=== PATIENT | female | born 1935 | race Caucasian/White ===

== ENCOUNTER 2016-04-12 12:54 | Inpatient (IN) | payer MEDICARE, MEDICAID ==
[2016-04-12] MEDS ORDERED: Morphine INJ* 4 MG/ML 1 ML CARPUJECT IV ONE (14:15)
[2016-04-12] MEDS ORDERED: Ondansetron INJ* 2 MG/ML VIAL IV ONE (14:15)
[2016-04-12] MEDS ORDERED: NS 0.9% 1000 ML* 2,000 ML IV ONE (14:15)
[2016-04-12 14:28] LABS: Hematocrit 35 % (35-47); Mean Corpuscular HGB Conc 35 g/dl (31-36); Mean Corpuscular Hemoglobin 32 pg (27-31); Mean Corpuscular Volume 91 fL (80-97); Mean Platelet Volume 8 um3 (7.4-10.4); Red Blood Count 3.79 10^6/ul (4.0-5.4); Red Cell Distribution Width 17 % (10.5-15); White Blood Count 16.8 10^3/ul (3.5-10.8)
[2016-04-12 14:41] LABS: Albumin 3.3 g/dL (3.2-5.2); C Reactive Protein 148.8 mg/L (< 5.00); Calcium 9.6 mg/dL (8.6-10.3); EGFR African American 38.8 (>60); EGFR Non-African American 30.2 (>60); Globulin 4.3 g/dL (2-4); Magnesium 2.2 mg/dL (1.9-2.7); Potassium 5.4 mmol/L (3.5-5.0); Total Bilirubin 0.7 mg/dL (0.2-1.0); Total Protein 7.6 g/dL (6.4-8.9)
[2016-04-12 14:58] LABS: Troponin I 1.26 ng/mL (<0.04)
--- NOTE | 2016-04-12 15:05 | RAD ---
INDICATION: Cough and shortness of breath. COMPARISON: Comparison is made with prior studies from July 14, 2015 and February 16, 2016. TECHNIQUE: AP and lateral views of the chest were obtained. FINDINGS: Cardiac and mediastinal contours appear normal. There is mild prominence of the interstitial markings which appear unchanged. There is a small infiltrate present in the right middle lobe. No pleural effusion is seen. IMPRESSION: SMALL RIGHT MIDDLE LOBE INFILTRATE.
--- NOTE | 2016-04-12 16:10 | RAD ---
CLINICAL HISTORY: Diffuse abdominal pain, vomiting COMPARISON: March 16, 2016 TECHNIQUE: Multiple contiguous axial CT scans were obtained of the abdomen and pelvis, without intravenous contrast enhancement. Coronal and sagittal multiplanar reformations are submitted for review. Oral contrast was administered. FINDINGS: The study is limited by the lack of intravenous contrast. This limits evaluation of the solid organs and vasculature. LUNG BASES: There is atelectasis and consolidation of the left lower lobe. There is atelectasis of the right middle lobe LIVER: The liver is normal in shape, size, contour, and attenuation. BILE DUCTS: There is no intrahepatic or extrahepatic biliary dilatation. GALLBLADDER: There is diffuse wall thickening of the gallbladder up to 0.8 cm. There is no appreciable cholelithiasis. PANCREAS: There is a stable punctate calcification of the uncinate process of the pancreas. There is no pancreatic ductal dilatation. SPLEEN: The spleen is not visualized UPPER GI TRACT: Evaluation of the gastrointestinal tract is limited by incomplete gastric distention. The upper GI tract is unremarkable. SMALL BOWEL AND MESENTERY: The small bowel is normal in contour, course, and caliber. There is no obstruction or dilatation. COLON: The colon is normal in contour, course, caliber. There is no pericolonic inflammatory change. ADRENALS: Normal bilaterally. KIDNEYS: The right kidney is not visualized. Renal cysts are noted on the left with small calyceal stones. There is no appreciable hydronephrosis. BLADDER: The bladder is smooth in contour. PELVIC ORGANS: The pelvic organs are not visualized. AORTA: There is calcific atherosclerotic disease of the abdominal aorta and its branches, without aneurysmal dilatation IVC: Unremarkable LYMPH NODES: There is no lymphadenopathy by size criteria. ABDOMINAL WALL: There is a superior lumbar triangle hernia on the right containing fat. BONES AND SOFT TISSUES: There is diffuse osteopenia. Mild degenerative changes are noted. OTHER: None IMPRESSION: 1. DIFFUSE GALLBLADDER WALL THICKENING. THE APPEARANCE IS SUGGESTIVE OF CHOLECYSTITIS, INCLUDING ACALCULUS CHOLECYSTITIS 2. NODULAR TO LEFT RENAL CALYCEAL STONES. NO HYDRONEPHROSIS. 3. NO OBSTRUCTION. 4. ATELECTASIS AND CONSOLIDATION OF THE LEFT LOWER LOBE WITH ATELECTASIS OF THE RIGHT MIDDLE LOBE. 5. ATHEROSCLEROSIS.
--- NOTE | 2016-04-12 16:25 | ED ---
Jose Gan Matthew, scribed for Juan Ramon Frias MD on 04/12/16 at 1410 . Abdominal Pain/Female - HPI Summary HPI Summary: An 81 y/o female presents to the ED with diffuse abdominal pain. She states that she's had this pain for a long time. Associated symptoms include diarrhea, SOB, chills, decreased appetite, general weakness, cough, and nausea. She denies chest pain. In the past she has used hydrocodone for pain relief; however , the medication is no longer effective. She took imodium for the diarrhea with moderate relief. In January 2016, the patient was hospitalized with pneumonia. At that time, she also had a heart catheterization. The patient only has one kidney. She has a Hx of small bowel obstruction. Shes Dr. Sims for s/p breast CA. - History of Current Complaint Chief Complaint: EDGeneral Stated Complaint: GENERAL ILLNESS Time Seen by Provider: 04/12/16 13:56 Hx Obtained From: Patient, Family/[employer]st - Daughter ?: No Onset/Duration: Gradual Onset, Still Present Timing: Constant Severity Initially: Moderate Severity Currently: Moderate Location: Diffuse Radiates: No Aggravating Factor(s): Nothing Alleviating Factor(s): Nothing Associated Signs and Symptoms: Positive: Cough, Decreased Appetite, Nausea, Diarrhea, Other: - SOB. Negative: Fever, Chest Pain, Vomiting Allergies/Adverse Reactions: Allergies Allergy/AdvReac Type Severity Reaction Status Date / Time Sulfa Drugs Allergy Severe Swelling Verified 03/16/16 14:02 Of Face,Lips,& Throat Tetracyclines & Related Allergy Severe Blurred Verified 03/16/16 14:02 Vision Carbamazepine [From Tegretol] Allergy Intermediate Itching Verified 03/16/16 14: 02 Iodine Allergy Intermediate See Comment Verified 03/16/16 14:02 Phenytoin [From Dilantin] Allergy Intermediate Shakes Verified 03/16/16 14:02 Prednisone Allergy Intermediate Palpitation Verified 03/16/16 14:02 s Latex Allergy Mild Rash Verified 03/16/16 14:02 Olanzapine [From Zyprexa] Allergy Unknown Altered Verified 03/16/16 14:02 Mental Status Valproic Acid [From Depakote] Allergy Unknown Altered Verified 03/16/16 14:02 Mental Status Cetirizine [From Zyrtec] Allergy Unknown Verified 12/27/16 14:02 Reaction Details PMH/Surg Hx/FS Hx/Imm Hx Endocrine/Hematology History: Reports: Hx Thyroid Disease - HASHIMOTOS, Hx Anemia - CHRONIC HEMOLYTIC ANEMIA Denies: Hx Anticoagulant Therapy, Hx Diabetes Cardiovascular History: Reports: Hx Hypertension Denies: Hx Pacemaker/ICD Comment Only: Other Cardiovascular Problems/Disorders - HX OF MASTECTOMY Respiratory History: Reports: Hx Asthma, Hx Chronic Bronchitis - not chronic, Hx Chronic Obstructive Pulmonary Disease (COPD) - CAD, Hx Pneumonia, Other Respiratory Problems/Disorders - emphysema GI History: Reports: Hx Gastroesophageal Reflux Disease, Hx Hiatal Hernia, Hx Irritable Bowel, Other GI Disorders - small bowel obstruction History: Reports: Hx Acute Renal Failure, Hx Kidney Stones, Hx Renal Disease - 1 KIDNEY, Other Problems/Disorders - renal disease Musculoskeletal History: Reports: Hx Arthritis - OSTEOARTHRITIS, Hx Osteoporosis Denies: Hx Rheumatoid Arthritis Sensory History: Reports: Hx Cataracts Denies: Hx Contacts or Glasses, Hx Hearing Aid Opthamlomology History: Reports: Hx Cataracts Denies: Hx Contacts or Glasses Neurological History: Reports: Hx Headaches - WITH ELEVATION IN BLOOD PRESSURE, Hx Migraine - WITH VALSALVAR MOVEMENT, Hx Seizures - BI-TEMPORAL INCOMPLETE FOCAL SEIZURES Psychiatric History: Reports: Hx Anxiety Denies: Hx Panic Disorder - Cancer History Cancer Type, Location and Year: BREAST CA Hx Chemotherapy: Yes - 1990 Hx Radiation Therapy: No - Surgical History Surgery Procedure, Year, and Place: LEFT BREAST REMOVED IN [facility] 1990 PER PT., SPLENECTOMY Hx Anesthesia Reactions: Yes Infectious Disease History: Denies: Traveled Outside the [place] in Last 30 Days - Family History Known Family History: Positive: Respiratory Disease - COPD - Social History Alcohol Use: None Hx Substance Use: No Substance Use Type: Reports: None Hx Tobacco Use: Yes Smoking Status (MU): Heavy Every Day Tobacco Smoker Type: Cigarettes Amount Used/How Often: 1 ppd 50 yrs Length of Time of Smoking/Using Tobacco: 50 years Have You Smoked in the Last Year: Yes Review of Systems Constitutional: Other - decreased appetite Positive: Chills Eyes: Negative ENT: Negative Cardiovascular: Negative Negative: Chest Pain Positive: Shortness Of Breath, Cough Positive: Abdominal Pain - Diffuse, Diarrhea, Nausea. Negative: Vomiting Genitourinary: Negative Musculoskeletal: Negative Skin: Negative Positive: Weakness - general Psychological: Normal All Other Systems Reviewed And Are Negative: Yes Physical Exam - Summary Physical Exam Summary: The patient is in no acute distress and in no acute pain. The skin has decreased turgor. HEENT: The head is normocephalic and atraumatic. The pupils are equal and reactive. The conjunctivae are clear and without drainage. Nares are patent and without drainage. Mouth reveals dry mucous membranes and the throat is without erythema and exudate. The external ears are intact. The ear canals are patent and without drainage. The tympanic membranes are intact. Neck is supple with full range of motion and non-tender. There are no carotid bruits. There is no neck vein distension. Respiratory: Chest is non-tender. The patient has wheezing and rhonchi. Cardiovascular: Heart is regular rate and rhythm. There is no murmur or rub auscultated. There is no peripheral edema and pulses are symmetrical and equal. Abdomen: The abdomen is soft with RLQ and LLQ abdominal tenderness. There are normal bowel sounds heard in all four quadrants and there is no organomegaly palpated. Musculoskeletal: There is no back pain noted. Extremities are non-tender with full range of motion. There is good capillary refill. There is no peripheral edema or calf tenderness elicited. Neurological: Patient is alert and oriented to person, place and time. The patient has symmetrical motor strength in all four extremities. Cranial nerves are grossly intact. Deep tendon reflexes are symmetrical and equal in all four extremities. Psychiatric: The patient has an appropriate affect and does not exhibit any anxiety or depression. Triage Information Reviewed: Yes Vital Signs On Initial Exam: Initial Vitals Temp Pulse Resp BP Pulse Ox 98.3 F 105 10 184/84 96 04/12/16 13:38 04/12/16 13:38 04/12/16 13:38 04/12/16 13:38 04/12/16 13:38 Vital Signs Reviewed: Yes Diagnostics - Vital Signs Vital Signs Temp Pulse Resp BP Pulse Ox 04/12/16 13:38 98.3 F 105 10 184/84 96 - Laboratory Lab Results: Lab Results 04/12/16 04/12/16 04/12/16 Range/Units 13:33 13:33 13:33 WBC 16.8 H (3.5-10.8) 10^3/ul RBC 3.79 L (4.0-5.4) 10^6/ul Hgb 12.0 (12.0-16.0) g/dl Hct 35 (35-47) % MCV 91 (80-97) fL MCH 32 H (27-31) pg MCHC 35 (31-36) g/dl RDW 17 H (10.5-15) % Plt Count 459 H (150-450) 10^3/ul MPV 8 (7.4-10.4) um3 Neut % (Auto) 82.9 (38-83) % Lymph % (Auto) 7.9 L (25-47) % [place] % (Auto) 8.5 (1-9) % Eos % (Auto) 0 (0-6) % Baso % (Auto) 0.7 (0-2) % Absolute Neuts (auto) 13.9 H (1.5-7.7) 10^3/ul Absolute Lymphs (auto) 1.3 (1.0-4.8) 10^3/ul Absolute Monos (auto) 1.4 H (0-0.8) 10^3/ul Absolute Eos (auto) 0 (0-0.6) 10^3/ul Absolute Basos (auto) 0.1 (0-0.2) 10^3/ul Absolute Nucleated RBC 0.01 10^3/ul Nucleated RBC % 0.1 INR (Anticoag Therapy) (0.89-1.11) Sodium 136 (133-145) mmol/L Potassium 5.4 H (3.5-5.0) mmol/L Chloride 103 (101-111) mmol/L Carbon Dioxide 24 (22-32) mmol/L Anion Gap 9 (2-11) mmol/L BUN 18 (6-24) mg/dL Creatinine 1.63 H (0.51-0.95) mg/dL Est GFR ( Amer) 38.8 (>60) Est GFR (Non-Af Amer) 30.2 (>60) BUN/Creatinine Ratio 11.0 (8-20) Glucose 115 H (70-100) mg/dL Lactic Acid 1.7 (0.5-2.0) mmol/L Calcium 9.6 (8.6-10.3) mg/dL Magnesium 2.2 (1.9-2.7) mg/dL Total Bilirubin 0.70 (0.2-1.0) mg/dL AST 94 H (13-39) U/L ALT 63 H (7-52) U/L Alkaline Phosphatase 638 H (34-104) U/L Troponin I 1.26 H* (<0.04) ng/mL C-Reactive Protein 148.80 H (< 5.00) mg/L B-Natriuretic Peptide ( - 100) pg/mL Total Protein 7.6 (6.4-8.9) g/dL Albumin 3.3 (3.2-5.2) g/dL Globulin 4.3 H (2-4) g/dL Albumin/Globulin Ratio 0.8 L (1-3) Lipase 968 H (11.0-82.0) U/L 04/12/16 04/12/16 Range/Units 13:33 13:33 WBC (3.5-10.8) 10^3/ul RBC (4.0-5.4) 10^6/ul Hgb (12.0-16.0) g/dl Hct (35-47) % MCV (80-97) fL MCH (27-31) pg MCHC (31-36) g/dl RDW (10.5-15) % Plt Count (150-450) 10^3/ul MPV (7.4-10.4) um3 Neut % (Auto) (38-83) % Lymph % (Auto) (25-47) % [place] % (Auto) (1-9) % Eos % (Auto) (0-6) % Baso % (Auto) (0-2) % Absolute Neuts (auto) (1.5-7.7) 10^3/ul Absolute Lymphs (auto) (1.0-4.8) 10^3/ul Absolute Monos (auto) (0-0.8) 10^3/ul Absolute Eos (auto) (0-0.6) 10^3/ul Absolute Basos (auto) (0-0.2) 10^3/ul Absolute Nucleated RBC 10^3/ul Nucleated RBC % INR (Anticoag Therapy) 1.00 (0.89-1.11) Sodium (133-145) mmol/L Potassium (3.5-5.0) mmol/L Chloride (101-111) mmol/L Carbon Dioxide (22-32) mmol/L Anion Gap (2-11) mmol/L BUN (6-24) mg/dL Creatinine (0.51-0.95) mg/dL Est GFR ( Amer) (>60) Est GFR (Non-Af Amer) (>60) BUN/Creatinine Ratio (8-20) Glucose (70-100) mg/dL Lactic Acid (0.5-2.0) mmol/L Calcium (8.6-10.3) mg/dL Magnesium (1.9-2.7) mg/dL Total Bilirubin (0.2-1.0) mg/dL AST (13-39) U/L ALT (7-52) U/L Alkaline Phosphatase (34-104) U/L Troponin I (<0.04) ng/mL C-Reactive Protein (< 5.00) mg/L B-Natriuretic Peptide 236 H ( - 100) pg/mL Total Protein (6.4-8.9) g/dL Albumin (3.2-5.2) g/dL Globulin (2-4) g/dL Albumin/Globulin Ratio (1-3) Lipase (11.0-82.0) U/L Result Diagrams: 04/12/16 13:33 04/12/16 13:33 Lab Statement: Any lab studies that have been ordered have been reviewed, and results considered in the medical decision making process. - Radiology CXR Xray Interpretation: Positive (See Comments) - IMPRESSION: SMALL RIGHT MIDDLE LOBE INFILTRATE. Radiology Interpretation Completed By: Radiologist Abdominal Pain Fem Course/Dx - Course Course Of Treatment: Pt. presents with abdominal pain which is chronic and is not relieved with pain medication at home. her daughter states that she is weak and unable to eat secondary to increased vomiting. pt. had pending labs, CT abd/pelvis and chest x-ray pending. pt was given analgesia and anti-emetics pending disposition. - Diagnoses Differential Diagnosis: Positive: ACS, Bowel Obstruction, Constipation, Diverticulitis, Gall Bladder Disease, AL, Pancreatitis, Pneumonia, Renal Colic, Urinary Tract Infection, Other - dehydration, colitis, failure to thrive, Provider Diagnoses: Abdominal pain Discharge - Discharge Plan Condition: Stable Disposition: OTHER Discharge Disposition Comment: The patient is signed out to Dr. Mayberry pending CT A/P. Referrals: Nancy Burciaga MD [Primary Care Provider] - The documentation as recorded by the Jose conner Matthew accurately reflects the service I personally performed and the decisions made by me, Juan Ramon Frias MD.
[2016-04-12] MEDS ORDERED: Piperac/Tazob 3.375 gm in NS* 3.375 GM/100 ML BAG IVPB ONE (16:48)
[2016-04-12] MEDS ORDERED: Ondansetron INJ* 2 MG/ML VIAL IV PRN (17:43)
[2016-04-12] MEDS ORDERED: Acetaminophen TAB* 325 MG PO PRN (17:43)
[2016-04-12] MEDS ORDERED: NS 0.9% 1000 ML* 1,000 ML IV SCH ×2 (17:45→20:58)
--- NOTE | 2016-04-12 17:53 | RAD ---
INDICATION: Abdominal pain COMPARISON: CT examination April 12, 2016 TECHNIQUE: Longitudinal and transverse scans of the right upper quadrant were obtained. Doppler interrogation of the hepatic and portal venous system was performed. FINDINGS: Liver: The liver is normal in size and echogenicity. There are no focal masses. The liver measures 13.3 cm in cephalocaudal dimension. Vessels: There is normal hepatic and portal venous flow. Bile ducts: There is no evidence of intrahepatic ductal dilatation. The common duct is mildly prominent.. The common duct measures 0.8 cm. Gallbladder: There is no evidence of cholelithiasis. There is a small amount of pericholecystic fluid. There is significant gallbladder wall thickening. The gallbladder wall measures 0.8 cm. Pancreas: The visualized pancreas appears normal Right kidney: Right nephrectomy IVC and aorta: The aorta and superior vena cava appear normal. Fluid: There is no ascites. Other: None. IMPRESSION: SUSPECT ACUTE ACALCULOUS CHOLECYSTITIS. RIGHT NEPHRECTOMY.
[2016-04-12] MEDS ORDERED: Piperac/Tazob 3.375 gm in NS* 3.375 GM/100 ML BAG IVPB SCH (18:00)
[2016-04-12] MEDS ORDERED: Albuterol HFA INHALER* 8 gm MDI INH PRN (18:24)
[2016-04-12] MEDS: Morphine INJ* 2 MG/ML 1 ML CARPUJECT IV PRN (18:33)
[2016-04-12] MEDS ORDERED: Metoprolol Tartrate TAB* 25 MG PO ONE (18:34)
[2016-04-12] MEDS ORDERED: Heparin DRIP 25,000 UNITS(*) 25,000 UNITS/500 ML BAG IVPB SCH (19:30)
--- NOTE | 2016-04-12 19:37 | ED ---
Yissel Gan Michael, scribed for Davis Mayberry MD on 04/12/16 at 1625 . Progress - Progress Note Progress Note: Patient sign out from Dr. Frias for abd pain. The patient was signed out and CT needs to be evaluated for obstruction. Reviewing chart Trop was significantly elevated. EKG- j point elevation V1, V2, and V3. Compared to prior EKG 03/16/16 this seems to have worsened compared to 02/11/16 and 02/15/17, this is not new. Reviewing old records prior CT on 03/16- reviewed discharge summary 02/23/16 she had elevated white count suprapubic pain SOB. She has no CAD or N STEMI, that admission of 01/2016 for the N STEMI. Cardiac catheterization on 02/[address] Lees. Found mild to moderate CAD. Her disease was somewhat diffuse and injection faction was 55%. Decision was made to medically manage. Patient points to pain at the suprapubic and periumbilical area. She denies v/d today and has decreased appetite and drinking for the past 2 days. Physical Exam: General: Comfortable, pleasant, alert, no distress HEENT: Moist mucosa Neck: soft, supple, no adenopathy, no edema Heart: S1, S2, RRR, no murmurs, rubs, or gallops Lungs: Clear to auscultation, breathing comfortable, no wheezes or rales Abdominal: Soft, flat, diffusely tender with guarding, Bowel sounds present. Extremities: No edema, no calf tenderness Neuro: Alert and oriented x 3 Psych: Logical, coherent ASSESSMENT AND PLAN: Presentation quite similar to prior admissions in January. She had abd pain that seems diffuse and points essentially to the lower abd as well as an elevated Trop. Prior records and catheterization reviewed, EKG does not show st elevation PR. Pt will be admitted and add a gall bladder u/s as well as antibiotics for possible acute cholecystitis and lung infiltrate. Dr. Barron (Hospitalist) was consulted at 1700.- patient is accepted as an admission. - Results/Orders Results/Orders: CT ABD/PEL: RADIOLOGIST 1. DIFFUSE GALLBLADDER WALL THICKENING. THE APPEARANCE IS SUGGESTIVE OF CHOLECYSTITIS, INCLUDING ACALCULUS CHOLECYSTITIS 2. NODULAR TO LEFT RENAL CALYCEAL STONES. NO HYDRONEPHROSIS. 3. NO OBSTRUCTION. 4. ATELECTASIS AND CONSOLIDATION OF THE LEFT LOWER LOBE WITH ATELECTASIS OF THE RIGHT MIDDLE LOBE. 5. ATHEROSCLEROSIS. Course/Dx - Diagnoses Provider Diagnoses: Abdominal pain, Pneumonia, NSTEMI (non-ST elevated myocardial infarction) The documentation as recorded by the Yissel conner Michael accurately reflects the service I personally performed and the decisions made by , Davis Mayberry MD.
[2016-04-12] MEDS ORDERED: Heparin VIAL(*) 5000 UNITS/ML VIAL (FIVE THOUSAND) IV SCH (20:00)
[2016-04-12 20:39] LABS: BUN/Creatinine Ratio 13.2 (8-20); Calcium 8.5 mg/dL (8.6-10.3); EGFR African American 42.1 (>60); EGFR Non-African American 32.7 (>60); Potassium 5.1 mmol/L (3.5-5.0)
[2016-04-12 20:46] LABS: Troponin I 2.78 ng/mL (<0.04)
--- NOTE | 2016-04-12 21:06 | HP ---
ADDENDUM NOW INCLUDED ON THIS REPORT ADMISSION HISTORY AND PHYSICAL: DATE OF ADMISSION: 04/12/16 PRIMARY CARE PROVIDER: Nancy Burciaga MD ADMITTING PROVIDER: JUDY Valentino SUPERVISING PHYSICIAN: Akhil Barron MD. * (DICTATED BY JUDY VALENTINO) CHIEF COMPLAINT: Abdominal pain. HISTORY OF PRESENT ILLNESS: This is an 81-year-old female with a history of COPD, hxue-kx-zcgmczjw aortic stenosis, coronary artery disease status post non- ST elevation MS in January 2016, as well as irritable bowel syndrome, anxiety, breast cancer status post mastectomy, hemolytic anemia status post splenectomy, and chronic pain secondary to osteoarthritis, who presented to the emergency department with complaints of abdominal pain, nausea, vomiting, and diarrhea. The patient has been mildly nauseated for the last week, but her abdominal pain started approximately 48 hours ago. She has had frequent loose bowel movements and has been treating herself at home with Imodium. She notes that these are nonbloody. She has been afebrile at home. She does note increased cough and dyspnea. She notes that she generally does not use her nebulizer machine at home as prescribed either. The patient does have a history of irritable bowel syndrome and does have complaints of chronic abdominal pain, which seems to usually be midline and left upper quadrant in origin. This pain is much different and located mostly in the right upper quadrant. She notes that her pain is quite significant, it hurts to move. Of note, the patient was admitted the end of January for a non-ST elevation MS at which point, she underwent cardiac catheterization, which showed diffuse but nonobstructing coronary artery disease and no stenting was completed at that time. The patient was subsequently readmitted the beginning of November and treated for urinary tract infection. PAST MEDICAL HISTORY: 1. Severe COPD - does not require home oxygen, however. 2. Yjxk-la-bvpgcqzv severe aortic stenosis. 3. Coronary artery disease status post non-ST elevation MS in January 2016. 4. Irritable bowel syndrome. 5. Anxiety. 6. Hemolytic anemia status post splenectomy. 7. Chronic pain secondary to osteoarthritis. 8. Breast cancer status post mastectomy and chemotherapy. 9. Hypothyroidism. 10. Hypertension. 11. Hyperlipidemia. 12. GERD. PAST SURGICAL HISTORY: 1. Left mastectomy. 2. Splenectomy, June 2014. 3. Hysterectomy. 4. Bladder repair. 5. Appendectomy. 6. Knee arthroscopy. 7. Carpal tunnel release. 8. ORIF of ankle. HOME MEDICATIONS: 1. Alprazolam 0.25 mg p.o. 4 times a day as needed for anxiety. 2. Albuterol inhaler 2 puffs inhaled q.4-6 hours as needed for shortness of breath. 3. Aspirin 81 mg p.o. daily. 4. Atorvastatin 80 mg p.o. daily. 5. Fioricet 1 tablet p.o. 3 times daily as needed for headache. 6. Cholecalciferol 50,000 units p.o. monthly. 7. Plavix 75 mg p.o. daily. 8. Vitamin B12 at 500 mcg p.o. daily. 9. Bentyl 10 mg p.o. 3 times daily. 10. Diltiazem 120 mg p.o. daily. 11. Docusate 100 mg p.o. daily. 12. Doxepin 12 mg p.o. at bedtime. 13. Chaya 180 mg p.o. daily. 14. Fluticasone nasal spray 50 mcg 1 spray in both nostrils twice daily. 15. Folic acid 1 mg p.o. daily. 16. Gabapentin 600 mg p.o. t.i.d. 17. Glycerin suppository 2 g per rectum twice daily as needed for constipation. 18. Vicodin 5/325 one tablet p.o. q.6 hours as needed. 19. Levbid 0.375 mg p.o. b.i.d. 20. Levothyroxine 25 mcg p.o. daily. 21. Losartan 25 mg p.o. daily. 22. Magnesium citrate 100 mg p.o. daily as needed for constipation. 23. Singulair 10 mg p.o. at bedtime. 24. Multivitamin 1 tablet p.o. daily. 25. Omeprazole 20 mg p.o. daily. 26. MiraLAX 17 g p.o. daily as needed for constipation. 27. Probiotic 1 capsule p.o. daily. 28. Systane eye drops 0.6% in both eyes. 29. Daliresp 500 mcg p.o. daily. 30. Senna 2 tablets p.o. at bedtime as needed for constipation. 31. Fleet Enema per rectal daily as needed. 32. Incruse 62.5 mcg p.o. inhaled twice daily. 33. Mucinex 600 mg p.o. b.i.d. FAMILY HISTORY: Brother had a history of brain tumor, father had a history of MS, mother had a history of dementia. SOCIAL HISTORY: The patient lives at home alone. She is . Has a 50 plus pack a year smoking history and continues to smoke 1 pack of cigarettes daily. Denies regular alcohol consumption. Her daughter lives nearby. REVIEW OF SYSTEMS: As noted above in HPI and otherwise negative. PHYSICAL EXAMINATION GENERAL: This is a pleasant elderly female in no acute distress, lying in a hospital bed. VITAL SIGNS: Initially, temperature 98.3 degrees Fahrenheit, pulse 105 beats per minute, respiratory rate 17 per minute, oxygen saturation 100% on room air, and blood pressure 184/84 mmHg. HEENT: Head is normocephalic and atraumatic. Mucous membranes are pink but dry. RESPIRATORY: The patient has reduced breath sounds appreciated in all lung louie and a few scattered rhonchi but no wheezing. CARDIOVASCULAR: Heart has a regular rate and rhythm without murmurs, rubs, or gallops. ABDOMEN: The abdomen is diffusely tender to palpation, seems to be mostly localized in the right upper quadrant; however, bowel sounds are present. EXTREMITIES: No lower extremity edema. SKIN: Limited exam shows no concerning rashes or lesions. LABORATORY EVALUATION: CBC shows a white blood cell count of 16,800, hemoglobin is 12 g/dL, and platelet count of 459,000. INR is normal at 1.0. Comprehensive metabolic panel shows sodium of 136 mmol/L, potassium of 5.4 mmol/ L, BUN 18, creatinine of 1.63. Total bilirubin is normal at 0.70, AST elevated at 94, ALT elevated at 63, and alk phos elevated at 638. Troponin elevated at 1.26. CRP significantly elevated at 148.8. BNP mildly elevated at 236. Lipase elevated at 968. IMAGING: CT of the abdomen and pelvis shows gallbladder wall thickening consistent with acalculous cholecystitis. No other acute pathology noted. Chest x-ray shows hyperinflated lungs, possible right middle lobe infiltrate that appears to be subtle. EKG shows a normal sinus rhythm. Review of a gallbladder ultrasound is also consistent with acalculous cholecystitis with a thickened gallbladder wall and common bile duct measuring 0.8 cm. ASSESSMENT AND PLAN: This is an 81-year-old female with chronic obstructive pulmonary disease, figx-ar-ipyqqntz aortic stenosis, coronary artery disease, irritable bowel syndrome, anxiety, hemolytic anemia status post splenectomy, chronic pain, breast cancer status post mastectomy, hypertension, hyperlipidemia , and hypothyroidism, who presents with complaints of abdominal pain, nausea, vomiting, and diarrhea with evidence of acalculous cholecystitis on imaging. 1. Acute cholecystitis - the patient will be admitted to medical service, placed on IV fluids and antibiotics. The patient is not an ideal surgical candidate given her multiple comorbidities. Depending on if she improves with IV antibiotics, we would recommend continued medical management. If her pain and white blood cell count are not improving, then surgical consultation would certainly be recommended. 2. Elevated troponin - non-ST elevation myocardial infarction versus demand ischemia - the patient has had cardiac catheterization completed just 2 months ago, which showed diffuse but nonobstructing coronary artery disease, the patient is not complaining of any chest pain. No changes on EKG appreciated. Suspect that this is demand related in the setting of acute infection and hypovolemic state from her vomiting and diarrhea. If repeat troponin is trending up, we will plan on empirically anticoagulating with heparin. If repeat troponin is trending down, we will continue to monitor closely and support medically. We will hold her diltiazem in favor of metoprolol at this time, continue her aspirin and statin. Echocardiogram ordered to evaluate for new wall motion changes. 3. Acute kidney injury - secondary to hypovolemia, anticipate improvement with volume expansion. 4. Hyperkalemia, potassium 5.4 - this is a little puzzling in the setting of GI loss, but we will plan to repeat basic metabolic panel after volume expansion. 5. Chronic obstructive pulmonary disease - the patient has czagduei-yc-dtrlwa disease but does not require supplemental oxygen at baseline. No evidence of acute exacerbation. We will plan to continue her home medications. 6. Possible pneumonia - the patient has had a recent cough and dyspnea. She does have maybe a subtle infiltrate appreciated on chest x-ray. Zosyn for her cholecystitis should be appropriate for lung pathogens as well. 7. Hsjh-ki-etvssgwn aortic stenosis. 8. Irritable bowel syndrome. 9. History of hemolytic anemia status post splenectomy. 10. Hypothyroidism - continue current dose levothyroxine. 11. Anxiety. 12. Breast cancer status post mastectomy. 13. Code status - the patient is full code. 14. DVT prophylaxis - this will be dependent on her repeat troponin. If she does not require full anticoagulation for acute coronary syndrome, she will be placed on Lovenox at a renally adjusted dose. 15. Healthcare proxy is her daughter by the name of Rika. DISPOSITION: The patient is being admitted to inpatient status for acute cholecystitis. Anticipate medical management only. The patient has an anticipated length of stay of greater than 2 midnights. JUDY VALENTINO ADDENDUM: DATE OF ADMISSION: 04/12/16 Repeat troponin was resulted at 2.25, up from 1.26. The patient continued to deny complaints of chest pain. EKG repeated which showed no ischemic changes. The patient has known diffuse stenosis based on catheterization 2 months ago. We will empirically anticoagulate with heparin drip and the patient will be observed in ICU. Still feel this is likely a result of mismatched supply and demand in the setting of acute infection and likely a fixed stenosis of her coronary arteries. Called underwater hunter, Dr. Meeks who will evaluate the patient tomorrow. We will continue to trend troponins. JUDY VALENTINO CC: Nancy Burciaga MD * [id number]/[facility] #: [id number] [id number]/CPS #: [id number] SINDI
--- NOTE | 2016-04-12 21:15 | HP ---
ADMISSION HISTORY AND PHYSICAL:* ADDENDUM: DATE OF ADMISSION: 04/12/16 Repeat troponin was resulted at 2.25, up from 1.26. The patient continued to deny complaints of chest pain. EKG repeated which showed no ischemic changes. The patient has known diffuse stenosis based on catheterization 2 months ago. We will empirically anticoagulate with heparin drip and the patient will be observed in ICU. Still feel this is likely a result of mismatched supply and demand in the setting of acute infection and likely a fixed stenosis of her coronary arteries. Called lubrication supervisor, Dr. Meeks who will evaluate the patient tomorrow. We will continue to trend troponins. JUDY VALENTINO [id number]/[facility] #: [id number] MTDD
[2016-04-12] MEDS: Metoprolol Tartrate TAB* 25 MG PO SCH (21:17)
[2016-04-12] MEDS: ALPRAZolam TAB* 0.5 MG PO PRN (21:18)
[2016-04-12] MEDS: Montelukast Sodium TAB* 10 MG PO SCH (21:18)
[2016-04-12] MEDS: Gabapentin CAP(*) 300 MG PO SCH (21:21)
[2016-04-12] MEDS: guaiFENesin ER TAB 600 MG PO PRN (21:22)
[2016-04-12] MEDS: DOXEPIN PO SCH (22:13)
[2016-04-12] MEDS: Piperac/Tazob 3.375 gm in NS* 3.375 GM/100 ML BAG IVPB SCH (22:45)
[2016-04-12] MEDS: Artificial Tears* 15 ML BTL BOTH EYES SCH (22:46)
[2016-04-13 04:30] LABS: Urine Bilirubin Negative (Negative); Urine Glucose Negative (Negative); Urine Nitrite Negative (Negative)
[2016-04-13] MEDS: Levothyroxine TAB* 25 MCG TAB PO SCH (05:31)
[2016-04-13] MEDS: Piperac/Tazob 3.375 gm in NS* 3.375 GM/100 ML BAG IVPB SCH ×3 (05:35→20:18)
[2016-04-13 06:06] LABS: Hematocrit 35 % (35-47); Hemoglobin 11.8 g/dl (12.0-16.0); Mean Corpuscular HGB Conc 34 g/dl (31-36); Mean Corpuscular Hemoglobin 31 pg (27-31); Mean Corpuscular Volume 91 fL (80-97); Mean Platelet Volume 8 um3 (7.4-10.4); Red Blood Count 3.87 10^6/ul (4.0-5.4); Red Cell Distribution Width 16 % (10.5-15); White Blood Count 19.4 10^3/ul (3.5-10.8)
[2016-04-13 06:18] LABS: Albumin 2.4 g/dL (3.2-5.2); BUN/Creatinine Ratio 16.3 (8-20); Calcium 7.9 mg/dL (8.6-10.3); EGFR African American 43.8 (>60); Globulin 3.3 g/dL (2-4); Potassium 4.5 mmol/L (3.5-5.0); Total Bilirubin 0.6 mg/dL (0.2-1.0); Total Protein 5.7 g/dL (6.4-8.9)
[2016-04-13 06:23] LABS: Troponin I 3.99 ng/mL (<0.04)
[2016-04-13] MEDS: Multivitamins/Minerals TAB PO SCH (08:19)
[2016-04-13] MEDS: Morphine INJ* 2 MG/ML 1 ML CARPUJECT IV PRN (08:19)
[2016-04-13] MEDS: Metoprolol Tartrate TAB* 25 MG PO SCH ×2 (08:19→19:35)
[2016-04-13] MEDS: Folic Acid TAB* 1 MG PO SCH (08:20)
[2016-04-13] MEDS: CMCS: Pantoprazole TAB (NF) 40 MG TAB PO SCH (08:20)
[2016-04-13] MEDS: Clopidogrel TAB* 75 MG PO SCH (08:20)
[2016-04-13] MEDS: FEXOFENADINE 180 MG PO SCH (08:20)
[2016-04-13] MEDS: Artificial Tears* 15 ML BTL BOTH EYES SCH ×3 (08:20→19:41)
[2016-04-13] MEDS: Aspirin EC Low Dose* 81 MG TAB.EC PO SCH (08:20)
[2016-04-13] MEDS: Gabapentin CAP(*) 300 MG PO SCH ×3 (08:20→19:32)
[2016-04-13] MEDS: Fluticasone NASAL SPRAY 50MCG* 16 gm SPRAY BTL BOTH NARES SCH (08:20)
--- NOTE | 2016-04-13 08:21 | PN ---
Subjective Date of Service: 04/13/16 Interval History: Little change RUQ pain. No chest pain, SOB, or cough. No new c/o. Objective Active Medications: Acetaminophen (Tylenol Tab*) 650 mg PO Q4H PRN PRN Reason: FEVER/PAIN Acetaminophen/Hydrocodone Bitart (Dimock 5-325 Tab*) 1 tab PO Q6H PRN PRN Reason: PAIN Albuterol (Ventolin Hfa Inhaler*) 2 puff INH Q6H PRN PRN Reason: SHORTNESS OF BREATH Alprazolam (Xanax Tab*) 0.25 mg PO QID PRN PRN Reason: ANXIETY Last Admin: 04/12/16 21:18 Dose: 0.25 mg Aspirin (Aspirin Ec Low Dose*) 81 mg PO DAILY [facility] Atorvastatin Calcium (Lipitor*) 80 mg PO QPM [facility] Clopidogrel Bisulfate (Plavix Tab*) 75 mg PO DAILY [facility] Fexofenadine HCl (Chaya 180 (Nf)) 180 mg PO DAILY [facility] PRN Reason: Protocol Fluticasone Propionate (Flonase Nasal [place] 50mcg*) 1 spray BOTH NARES DAILY [facility] Folic Acid (Folvite Tab*) 1 mg PO DAILY [facility] Gabapentin (Neurontin Cap(*)) 600 mg PO TID [facility] Last Admin: 04/12/16 21:21 Dose: 600 mg Guaifenesin (Mucinex*) 600 mg PO BID PRN PRN Reason: CONGESTION Last Admin: 04/12/16 21:22 Dose: 600 mg Heparin Sodium (Porcine) (Heparin Vial(*)) 0 units IV .PER PROTOCOL [facility] PRN Reason: Protocol Piperacillin Sod/Tazobactam Sod (Zosyn 3.375 Gm In Ns Premix*) 3.375 gm in 100 mls @ 25 mls/hr IVPB Q8H [facility] Last Admin: 04/13/16 05:35 Dose: 25 mls/hr Heparin Sodium/Dextrose (Heparin Drip 25,000 Units(*)) 25,000 units in 500 mls @ 0 mls/hr IVPB .PER RATE [facility]; Per Protocol PRN Reason: Protocol Sodium Chloride (Ns 0.9% 1000 Ml*) 1,000 mls @ 150 mls/hr IV PER RATE [facility] Levothyroxine Sodium (Synthroid Tab*) 25 mcg PO 0600 [facility] Last Admin: 04/13/16 05:31 Dose: 25 mcg Metoprolol Tartrate (Lopressor Tab*) 25 mg PO BID [facility] Last Admin: 04/12/16 21:17 Dose: 25 mg Montelukast Sodium (Singulair Tab*) 10 mg PO BEDTIME [facility] Last Admin: 04/12/16 21:18 Dose: 10 mg Morphine Sulfate (Morphine Inj (Syringe)*) 2 mg IV Q4H PRN PRN Reason: PAIN Last Admin: 04/12/16 18:33 Dose: 2 mg Multivitamins/Minerals (Theragran/Minerals Tab*) 1 tab PO DAILY [facility] Doxepin Hcl (Sleep) ([Silenor] 12 Mg) 12 mg PO BEDTIME [facility] Last Admin: 04/12/16 22:13 Dose: Not Given Umeclidinium Kinsman [Incruse Ellipta] 62.5 Mcg 62.5 mcg INH BID [facility] Last Admin: 04/12/16 23:28 Dose: Not Given Ondansetron HCl (Zofran Inj*) 4 mg IV Q4H PRN PRN Reason: NAUSEA/VOMITING Last Admin: 04/12/16 18:33 Dose: 4 mg Pantoprazole Sodium (Protonix Tab (Nf)) 40 mg PO QAM [facility] Polyvinyl Alcohol (Polyvinyl Alcohol 1.4% Opth*) 1 drop BOTH EYES TID [facility] Last Admin: 04/12/16 22:46 Dose: 1 drop Roflumilast (Daliresp (Nf)) 500 mcg PO DAILY [facility] Vital Signs 04/12/16 04/12/16 04/12/16 17:54 18:00 18:30 Temperature Pulse Rate 96 98 Respiratory 16 17 Rate Blood Pressure 165/97 163/81 158/71 (mmHg) O2 Sat by Pulse 93 91 Oximetry 04/12/16 04/12/16 04/12/16 18:33 19:46 19:52 Temperature Pulse Rate 100 99 Respiratory 10 20 17 Rate Blood Pressure 150/75 (mmHg) O2 Sat by Pulse 92 91 Oximetry 04/12/16 04/12/16 04/12/16 20:00 20:30 20:44 Temperature 98.8 F Pulse Rate 99 97 100 Respiratory 18 18 17 Rate Blood Pressure 151/74 152/81 155/78 (mmHg) O2 Sat by Pulse 91 91 92 Oximetry 04/12/16 04/12/16 04/12/16 20:46 20:49 21:00 Temperature Pulse Rate 96 Respiratory 16 16 15 Rate Blood Pressure 161/70 155/78 175/78 (mmHg) O2 Sat by Pulse 92 Oximetry 04/12/16 04/12/16 04/12/16 21:15 21:18 21:30 Temperature Pulse Rate 99 93 Respiratory 23 18 24 Rate Blood Pressure 155/85 170/90 (mmHg) O2 Sat by Pulse 91 91 Oximetry 04/12/16 04/12/16 04/12/16 21:45 22:00 22:45 Temperature Pulse Rate 96 95 87 Respiratory 16 16 13 Rate Blood Pressure 154/81 138/70 134/74 (mmHg) O2 Sat by Pulse 91 90 91 Oximetry 04/12/16 04/12/16 04/12/16 22:53 23:00 23:46 Temperature Pulse Rate 85 85 Respiratory 18 17 15 Rate Blood Pressure 140/79 (mmHg) O2 Sat by Pulse 93 92 Oximetry 04/13/16 04/13/16 04/13/16 00:00 00:01 01:00 Temperature 99 F Pulse Rate 84 84 85 Respiratory 15 15 18 Rate Blood Pressure 131/79 131/75 (mmHg) O2 Sat by Pulse 92 92 91 Oximetry 04/13/16 04/13/16 04/13/16 02:00 02:02 03:00 Temperature Pulse Rate 86 87 Respiratory 16 16 17 Rate Blood Pressure 126/66 137/72 (mmHg) O2 Sat by Pulse 92 90 Oximetry 04/13/16 04/13/16 04/13/16 03:50 04:00 05:00 Temperature 101 F Pulse Rate 89 Respiratory 18 18 Rate Blood Pressure 154/97 140/76 (mmHg) O2 Sat by Pulse 92 Oximetry 04/13/16 04/13/16 06:00 07:00 Temperature Pulse Rate 84 87 Respiratory 15 16 Rate Blood Pressure 131/67 143/67 (mmHg) O2 Sat by Pulse 92 92 Oximetry Oxygen Devices in Use Now: Nasal Cannula Appearance: Alert, supine in ICU bed. In fair spirits. Looks comfortable at rest. Eyes: No Scleral Icterus Ears/Nose/Mouth/Throat: Clear Oropharnyx, Mucous Membranes Moist Neck: NL Appearance and Movements; NL JVP, No Thyroid Enlargement, Masses Respiratory: Symmetrical Chest Expansion and Respiratory Effort, Clear to Auscultation, Clear to Percussion Abdominal: - - Soft, very tender RUQ. Nl BS. Not distended. Skin: No Rash or Ulcers, No Nodules or Sclerosis, - Neurological: Alert and Oriented x 3, NL Sensation Result Diagrams: 04/13/16 05:25 04/13/16 05:25 Additional Lab and Data: Lab Results 04/12/16 04/12/16 04/12/16 Range/Units 13:33 13:33 13:33 WBC 16.8 H (3.5-10.8) 10^3/ul RBC 3.79 L (4.0-5.4) 10^6/ul Hgb 12.0 (12.0-16.0) g/dl Hct 35 (35-47) % MCV 91 (80-97) fL MCH 32 H (27-31) pg MCHC 35 (31-36) g/dl RDW 17 H (10.5-15) % Plt Count 459 H (150-450) 10^3/ul MPV 8 (7.4-10.4) um3 Neut % (Auto) 82.9 (38-83) % Lymph % (Auto) 7.9 L (25-47) % [place] % (Auto) 8.5 (1-9) % Eos % (Auto) 0 (0-6) % Baso % (Auto) 0.7 (0-2) % Absolute Neuts (auto) 13.9 H (1.5-7.7) 10^3/ul Absolute Lymphs (auto) 1.3 (1.0-4.8) 10^3/ul Absolute Monos (auto) 1.4 H (0-0.8) 10^3/ul Absolute Eos (auto) 0 (0-0.6) 10^3/ul Absolute Basos (auto) 0.1 (0-0.2) 10^3/ul Absolute Nucleated RBC 0.01 10^3/ul Nucleated RBC % 0.1 INR (Anticoag Therapy) (0.89-1.11) Sodium 136 (133-145) mmol/L Potassium 5.4 H (3.5-5.0) mmol/L Chloride 103 (101-111) mmol/L Carbon Dioxide 24 (22-32) mmol/L Anion Gap 9 (2-11) mmol/L BUN 18 (6-24) mg/dL Creatinine 1.63 H (0.51-0.95) mg/dL Est GFR ( Amer) 38.8 (>60) Est GFR (Non-Af Amer) 30.2 (>60) BUN/Creatinine Ratio 11.0 (8-20) Glucose 115 H (70-100) mg/dL Lactic Acid 1.7 (0.5-2.0) mmol/L Calcium 9.6 (8.6-10.3) mg/dL Magnesium 2.2 (1.9-2.7) mg/dL Total Bilirubin 0.70 (0.2-1.0) mg/dL AST 94 H (13-39) U/L ALT 63 H (7-52) U/L Alkaline Phosphatase 638 H (34-104) U/L Troponin I 1.26 H* (<0.04) ng/mL C-Reactive Protein 148.80 H (< 5.00) mg/L B-Natriuretic Peptide ( - 100) pg/mL Total Protein 7.6 (6.4-8.9) g/dL Albumin 3.3 (3.2-5.2) g/dL Globulin 4.3 H (2-4) g/dL Albumin/Globulin Ratio 0.8 L (1-3) Lipase 968 H (11.0-82.0) U/L 04/12/16 04/12/16 Range/Units 13:33 13:33 WBC (3.5-10.8) 10^3/ul RBC (4.0-5.4) 10^6/ul Hgb (12.0-16.0) g/dl Hct (35-47) % MCV (80-97) fL MCH (27-31) pg MCHC (31-36) g/dl RDW (10.5-15) % Plt Count (150-450) 10^3/ul MPV (7.4-10.4) um3 Neut % (Auto) (38-83) % Lymph % (Auto) (25-47) % [place] % (Auto) (1-9) % Eos % (Auto) (0-6) % Baso % (Auto) (0-2) % Absolute Neuts (auto) (1.5-7.7) 10^3/ul Absolute Lymphs (auto) (1.0-4.8) 10^3/ul Absolute Monos (auto) (0-0.8) 10^3/ul Absolute Eos (auto) (0-0.6) 10^3/ul Absolute Basos (auto) (0-0.2) 10^3/ul Absolute Nucleated RBC 10^3/ul Nucleated RBC % INR (Anticoag Therapy) 1.00 (0.89-1.11) Sodium (133-145) mmol/L Potassium (3.5-5.0) mmol/L Chloride (101-111) mmol/L Carbon Dioxide (22-32) mmol/L Anion Gap (2-11) mmol/L BUN (6-24) mg/dL Creatinine (0.51-0.95) mg/dL Est GFR ( Amer) (>60) Est GFR (Non-Af Amer) (>60) BUN/Creatinine Ratio (8-20) Glucose (70-100) mg/dL Lactic Acid (0.5-2.0) mmol/L Calcium (8.6-10.3) mg/dL Magnesium (1.9-2.7) mg/dL Total Bilirubin (0.2-1.0) mg/dL AST (13-39) U/L ALT (7-52) U/L Alkaline Phosphatase (34-104) U/L Troponin I (<0.04) ng/mL C-Reactive Protein (< 5.00) mg/L B-Natriuretic Peptide 236 H ( - 100) pg/mL Total Protein (6.4-8.9) g/dL Albumin (3.2-5.2) g/dL Globulin (2-4) g/dL Albumin/Globulin Ratio (1-3) Lipase (11.0-82.0) U/L Microbiology and Other Data: Microbiology 04/12/16 22:10 Nasal Screen MRSA (PCR)(BRIANNA) - Final Nasal Mrsa Negative Assess/Plan/Problems-Billing Assessment: - Patient Problems (1) Acalculous cholecystitis Current Visit: Yes Status: Acute Code(s): K81.9 - CHOLECYSTITIS, UNSPECIFIED SNOMED Code(s): 94569692 Comment: Continue pip/vidya. LFT's improved 04/13 but WBC higher. CBC, CMP . (2) CAD (coronary artery disease) Current Visit: No Status: Acute Code(s): I25.10 - ATHSCL HEART DISEASE OF [place] CORONARY ARTERY W/O ANG PCTRS SNOMED Code(s): 27519729 Comment: - Troponin increased to 3.99 04/13. - Continue medical management with heparin, Aspirin, clopidogrel, Atorvastatin, metoprolol. (3) COPD (chronic obstructive pulmonary disease) Current Visit: No Status: Acute Code(s): J44.9 - CHRONIC OBSTRUCTIVE PULMONARY DISEASE, UNSPECIFIED SNOMED Code(s): 63153084 Comment: - Stable. - Continue montelukase, PRN albuterol neb. (4) Post-splenectomy Current Visit: No Status: Chronic Comment: This is cause of her baseline leukocytosis.
[2016-04-13] MEDS: Roflumilast (NF) 500 MCG TAB PO SCH (08:30)
[2016-04-13] MEDS: HYDROcodone/ACETAMIN 5-325 MG* 1 TAB PO PRN ×2 (12:32→19:50)
--- NOTE | 2016-04-13 13:34 | CONS ---
INTERVENTIONAL CARDIOLOGY CONSULT NOTE: DATE OF CONSULT: 04/13/16 PRIMARY CARE PHYSICIAN: Dr. Burciaga. INTEGRATED CIRCUIT DESIGN ENGINEER: Dr. Lees. HISTORY OF PRESENT ILLNESS: An 81-year-old woman with nonobstructive coronary disease, recent cath, Interventional Cardiology consulted because of abnormal troponin. She is a very poor, vague, wandering historian. She denies any recent chest pain. She was admitted yesterday with abdominal pain, apparently is felt to have cholecystitis. I have reviewed [facility], she has numerous admissions here. 02/09/16, she was admitted here with shortness of breath and perhaps sepsis, she had abnormal troponin to 2.05. BNP was elevated at 334. Echo showed LVH with EF of 55% to 60% with right ventricular enlargement, mild aortic stenosis, and mild pulmonary hypertension. On February 09, she underwent catheterization with the findings of 40% to 50% LAD stenosis, 65% proximal RCA stenosis with normal FFR, and 40% circumflex stenosis. LV gram was not done. She was hypertensive during the procedure. She clearly did not have ACS that admission based on her nonobstructive coronary disease. Nonetheless, the record keeps referencing back to a non-ST elevation infarct, which is not an established diagnosis. During that admission , she was noticed to have one guaiac-positive stool. She was readmitted on February 15 with pyelonephritis, and admitted yesterday with abdominal pain. She categorically denies any chest pain. I really cannot elicit much meaningful history from her. PAST MEDICAL HISTORY: Solitary left kidney; COPD with apparently continued smoking; autoimmune hemolytic anemia, status post splenectomy; numerous other diagnoses. PRE-HOSPITAL MEDICATIONS: She apparently is on 30 medications. ALLERGIES: Numerous. REVIEW OF SYSTEMS: Not meaningful. PHYSICAL EXAM: She is thin. She is not tachypneic or dyspneic, blood pressure 147/72, heart rate is around 100. She is afebrile. She has expiratory wheezing and rhonchi at both bases. JVP is not elevated. Carotid upstroke is normal. HEENT: Unremarkable. Cardiac Exam: She has a grade 1 systolic ejection murmur increasing post PAC consistent with trivial aortic stenosis. She has no gallop. Her abdomen is tender diffusely. She has palpable pulses, she has no cyanosis, clubbing, or edema. DIAGNOSTIC STUDIES/LAB DATA: EKG again shows poor R-wave progression and low voltage in the limb leads without any evolution. Alkaline phosphatase is elevated at 439, BNP is high at 236. Her troponin initially 1.21, now has climbed to 3.99 without chest pain. Her admission creatinine was 1.63 with the last previous creatinine of 0.73 on the . IMPRESSION: Abnormal troponin. This is without associated chest discomfort or EKG changes, in the setting of acute renal insufficiency. Two months ago, she had a cardiac cath for abnormal troponins with nonobstructive disease, at that point did not have acute coronary syndrome, but likely again had nonischemic troponin elevation. There is no reason to believe that her coronary disease has changed, she is on high-dose statin and dual-antiplatelet therapy as well as now a beta marcela which is all reasonable. She likely has diastolic heart failure accounting for part of her dyspnea, although her chronic obstructive pulmonary disease certainly is contributing. She is apparently thought to have cholelithiasis or cholecystitis. From a cardiac perspective, I do not recommend any further testing or any change in her therapy. Thanks for the consultation, please call if you need any further input. CC: Dr. Burciaga; Dr. Lees * [id number]/[facility] #: [id number] MTDD
[2016-04-13] MEDS: Atorvastatin* 80 MG TAB PO SCH (17:25)
[2016-04-13] MEDS: NS 0.9% 1000 ML* 1,000 ML IV SCH (19:31)
[2016-04-13] MEDS: Montelukast Sodium TAB* 10 MG PO SCH (19:32)
[2016-04-13] MEDS: DOXEPIN PO SCH (19:41)
[2016-04-13] MEDS: ALPRAZolam TAB* 0.5 MG PO PRN (19:42)
[2016-04-14 03:50] LABS: Hematocrit 31 % (35-47); Hemoglobin 10.5 g/dl (12.0-16.0); Mean Corpuscular HGB Conc 34 g/dl (31-36); Mean Corpuscular Hemoglobin 31 pg (27-31); Mean Corpuscular Volume 91 fL (80-97); Mean Platelet Volume 8 um3 (7.4-10.4); Red Blood Count 3.44 10^6/ul (4.0-5.4); Red Cell Distribution Width 16 % (10.5-15); White Blood Count 21.4 10^3/ul (3.5-10.8)
[2016-04-14 03:54] LABS: Add Diff/Slide Review? Slide Review Added; Comments Flag Yes
[2016-04-14 04:04] LABS: Albumin 2.4 g/dL (3.2-5.2); Calcium 7.5 mg/dL (8.6-10.3); EGFR African American 71.6 (>60); EGFR Non-African American 55.6 (>60); Globulin 3.1 g/dL (2-4); Potassium 3.5 mmol/L (3.5-5.0); Total Bilirubin 0.5 mg/dL (0.2-1.0); Total Protein 5.5 g/dL (6.4-8.9)
[2016-04-14 04:08] LABS: Troponin I 1.83 ng/mL (<0.04)
[2016-04-14 04:29] LABS: Hypochromasia 1+; Macrocytosis 2+; Spherocytes 2+
[2016-04-14 04:30] LABS: Burr Cells 1+; Tear Drop Cells 1+; Toxic Granulation 1+
[2016-04-14] MEDS: Piperac/Tazob 3.375 gm in NS* 3.375 GM/100 ML BAG IVPB SCH ×3 (05:02→20:54)
[2016-04-14] MEDS: Levothyroxine TAB* 25 MCG TAB PO SCH (05:02)
[2016-04-14] MEDS: HYDROcodone/ACETAMIN 5-325 MG* 1 TAB PO PRN ×3 (05:16→20:51)
[2016-04-14] MEDS: ALPRAZolam TAB* 0.5 MG PO PRN ×2 (05:18→20:06)
[2016-04-14] MEDS: NS 0.9% 1000 ML* 1,000 ML IV SCH ×2 (05:27→16:04)
[2016-04-14] MEDS: FEXOFENADINE 180 MG PO SCH (10:01)
[2016-04-14] MEDS: Roflumilast (NF) 500 MCG TAB PO SCH (10:01)
[2016-04-14] MEDS: Fluticasone NASAL SPRAY 50MCG* 16 gm SPRAY BTL BOTH NARES SCH (10:13)
[2016-04-14] MEDS: Artificial Tears* 15 ML BTL BOTH EYES SCH ×3 (10:13→20:50)
[2016-04-14] MEDS: Multivitamins/Minerals TAB PO SCH (10:14)
[2016-04-14] MEDS: Gabapentin CAP(*) 300 MG PO SCH ×3 (10:14→20:49)
[2016-04-14] MEDS: Folic Acid TAB* 1 MG PO SCH (10:15)
[2016-04-14] MEDS: Aspirin EC Low Dose* 81 MG TAB.EC PO SCH (10:16)
[2016-04-14] MEDS: CMCS: Pantoprazole TAB (NF) 40 MG TAB PO SCH (10:16)
[2016-04-14] MEDS: Metoprolol Tartrate TAB* 25 MG PO SCH ×2 (10:16→20:50)
[2016-04-14] MEDS: Clopidogrel TAB* 75 MG PO SCH (10:16)
[2016-04-14] MEDS: Atorvastatin* 80 MG TAB PO SCH (17:47)
--- NOTE | 2016-04-14 18:15 | PN ---
Subjective Date of Service: 04/14/16 Interval History: HOSPITALIST PROGRESS NOTE Patient seen and examined at bedside. She states her abdominal pain is a little better, still has some nausea, but less intense. She's aware of her confusion overnight. Multiple episodes of dark green liquid stool today. Family History: Unchanged from Admission Social History: Unchanged from Admission Past Medical History: Unchanged from Admission Objective Active Medications: Acetaminophen (Tylenol Tab*) 650 mg PO Q4H PRN PRN Reason: FEVER/PAIN Acetaminophen/Hydrocodone Bitart ([place] 5-325 Tab*) 1 tab PO Q6H PRN PRN Reason: PAIN Last Admin: 04/14/16 14:42 Dose: 1 tab Albuterol (Ventolin Hfa Inhaler*) 2 puff INH Q6H PRN PRN Reason: SHORTNESS OF BREATH Alprazolam (Xanax Tab*) 0.25 mg PO QID PRN PRN Reason: ANXIETY Last Admin: 04/14/16 05:18 Dose: 0.25 mg Aspirin (Aspirin Ec Low Dose*) 81 mg PO DAILY [facility] Last Admin: 04/14/16 10:16 Dose: 81 mg Atorvastatin Calcium (Lipitor*) 80 mg PO QPM [facility] Last Admin: 04/14/16 17:47 Dose: 80 mg Clopidogrel Bisulfate (Plavix Tab*) 75 mg PO DAILY [facility] Last Admin: 04/14/16 10:16 Dose: 75 mg Fexofenadine HCl (Chaya 180 (Nf)) 180 mg PO DAILY [facility] PRN Reason: Protocol Last Admin: 04/14/16 10:01 Dose: Not Given Fluticasone Propionate (Flonase Nasal [place] 50mcg*) 1 spray BOTH NARES DAILY [facility] Last Admin: 04/14/16 10:13 Dose: 1 spray Folic Acid (Folvite Tab*) 1 mg PO DAILY [facility] Last Admin: 04/14/16 10:15 Dose: 1 mg Gabapentin (Neurontin Cap(*)) 600 mg PO TID [facility] Last Admin: 04/14/16 14:33 Dose: 600 mg Guaifenesin (Mucinex*) 600 mg PO BID PRN PRN Reason: CONGESTION Last Admin: 04/12/16 21:22 Dose: 600 mg Heparin Sodium (Porcine) (Heparin Vial(*)) 0 units IV .PER PROTOCOL [facility] PRN Reason: Protocol Piperacillin Sod/Tazobactam Sod (Zosyn 3.375 Gm In Ns Premix*) 3.375 gm in 100 mls @ 25 mls/hr IVPB Q8H [facility] Last Admin: 04/14/16 14:30 Dose: 25 mls/hr Heparin Sodium/Dextrose (Heparin Drip 25,000 Units(*)) 25,000 units in 500 mls @ 0 mls/hr IVPB .PER RATE [facility]; Per Protocol PRN Reason: Protocol Last Admin: 04/14/16 10:28 Dose: 10 mls/hr Sodium Chloride (Ns 0.9% 1000 Ml*) 1,000 mls @ 100 mls/hr IV PER RATE [facility] Last Admin: 04/14/16 16:04 Dose: 100 mls/hr Levothyroxine Sodium (Synthroid Tab*) 25 mcg PO 0600 [facility] Last Admin: 04/14/16 05:02 Dose: 25 mcg Metoprolol Tartrate (Lopressor Tab*) 25 mg PO BID [facility] Last Admin: 04/14/16 10:16 Dose: 25 mg Montelukast Sodium (Singulair Tab*) 10 mg PO BEDTIME [facility] Last Admin: 04/13/16 19:32 Dose: 10 mg Morphine Sulfate (Morphine Inj (Syringe)*) 2 mg IV Q4H PRN PRN Reason: PAIN Last Admin: 04/13/16 08:19 Dose: 2 mg Multivitamins/Minerals (Theragran/Minerals Tab*) 1 tab PO DAILY [facility] Last Admin: 04/14/16 10:14 Dose: 1 tab Doxepin Hcl (Sleep) ([Silenor] 12 Mg) 12 mg PO BEDTIME [facility] Last Admin: 04/13/16 19:41 Dose: Not Given Umeclidinium [place] [Incruse Ellipta] 62.5 Mcg 62.5 mcg INH BID [facility] Last Admin: 04/14/16 10:01 Dose: Not Given Ondansetron HCl (Zofran Inj*) 4 mg IV Q4H PRN PRN Reason: NAUSEA/VOMITING Last Admin: 04/12/16 18:33 Dose: 4 mg Pantoprazole Sodium (Protonix Tab (Nf)) 40 mg PO QAM [facility] Last Admin: 04/14/16 10:16 Dose: 40 mg Polyvinyl Alcohol (Polyvinyl Alcohol 1.4% Opth*) 1 drop BOTH EYES TID [facility] Last Admin: 04/14/16 14:35 Dose: 1 drop Roflumilast (Daliresp (Nf)) 500 mcg PO DAILY [facility] Last Admin: 04/14/16 10:01 Dose: Not Given Vital Signs 04/14/16 04/14/16 04/14/16 14:33 14:42 15:12 Temperature 97.8 F Pulse Rate 90 Respiratory 18 18 17 Rate Blood Pressure 173/101 (mmHg) O2 Sat by Pulse 100 Oximetry Oxygen Devices in Use Now: Nasal Cannula Appearance: Pleasantly confused elderly lady lying in bed in NAD. Eyes: No Scleral Icterus Ears/Nose/Mouth/Throat: Mucous Membranes Moist Neck: Trachea Midline Respiratory: Symmetrical Chest Expansion and Respiratory Effort, Clear to Auscultation Cardiovascular: RRR - Normal S1 and S2, +SM Abdominal: - - Soft, mild RUQ tenderness, no guarding or rebound, Rubin's sign is negative, BS+ and increased Extremities: No Edema Neurological: - - AAOx2 (self and place), MEDINA Lines/Tubes/Other Access: Clean, Dry and Intact Peripheral IV Nutrition: Taking PO's Result Diagrams: 04/14/16 03:35 04/14/16 03:35 Assess/Plan/Problems-Billing Assessment: Mrs. 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 - Patient Problems (1) Acalculous cholecystitis Comment: - CT and US reviewed. - Clinically, she feels better with less abdominal pain. LFTs trending down, but WBC continues to trend up. - Afebrile with stable VS. - Continue Zosyn. - Surgery input appreciated - plan for HIDA scan. (2) Elevated troponin Comment: - Suspect increased demand in the setting of cholecystitis. - Cardiology input appreciated - not associated with chest discomfor or EKG changes. Suspect her troponin elevation is non-ischemic. He did not recommend any further testing or change in medication. - Continue Aspirin, Plavix, statin and beta-marcela. - D/c heparin drip. (3) ELIZABETH (acute kidney injury) Comment: - Likely pre- renal - responding to IVF. (4) COPD (chronic obstructive pulmonary disease) Comment: - Stable, but patient continues to smoke (she makes her own cigarettes and is not sure how many she smokes a day - she thinks <20 a day). Advised about importance of quitting. - Continue montelukast and bronchodilators. (5) DVT prophylaxis Comment: - SQ heparin. (6) Full code status Status and Disposition: Inpatient for IV antibiotics.
[2016-04-14] MEDS: Montelukast Sodium TAB* 10 MG PO SCH (20:49)
[2016-04-14] MEDS: DOXEPIN PO SCH (20:50)
[2016-04-14] MEDS: Heparin VIAL(*) 5000 UNITS/ML VIAL (FIVE THOUSAND) SUBCUT SCH (21:04)
[2016-04-14] MEDS: guaiFENesin ER TAB 600 MG PO PRN (21:27)
--- NOTE | 2016-04-14 23:01 | CONS ---
SURGICAL CONSULT NOTE: DATE OF CONSULT: 04/14/16 ATTENDING PHYSICIAN: Robert Mcginnis MD CHIEF COMPLAINT: Acalculous cholecystitis. HISTORY OF PRESENT ILLNESS: This is an 81-year-old female who was admitted through the ED on 04/12/16 with abdominal pain. Per the admission history and physical, this was located in the right upper quadrant as compared with her frequent baseline abdominal pain, which she describes in the left upper quadrant (she is a poor historian in terms of recent events and when asked today about abdominal pain, she refers to her left upper quadrant and states that it is similar to what she has had in the past. She denies nausea or vomiting, fever or chills.) Her diagnostic workup included a CT of the abdomen and pelvis with oral contrast only. This showing atelectasis and consolidation in the left lower lobe as well as atelectasis in the right middle lobe. In addition, was noted diffuse gallbladder wall swelling up to 0.8 cm with the duct described as being normal. Also noted were left renal cyst and calyceal stones (the patient has a single kidney). Also noted was calcified atherosclerotic disease of the aorta. An ultrasound done on the same date confirmed gallbladder wall swelling with a small amount of pericholecystic fluid. The common bile duct was normal at 0.8 cm in diameter. The patient's liver function tests were at or near normal. Her white blood cell count was elevated on admission and has climbed somewhat over the past 36 hours (she is status post splenectomy; and therefore, does tend to run a bit of an elevated white blood cell count commonly.) Her admission home meds were reviewed including clopidogrel, which was added in January after an apparent non-ST elevation SD (this was based apparently on elevated troponins. She does have significant, but nonocclusive coronary disease, see also Dr. Shi' consult from current admission.) Current medications were also reviewed, which include aspirin and clopidogrel as well as Zosyn. PHYSICAL EXAM: The patient is sitting up in bed and appears comfortable and in no acute distress (she has been using primarily [place] 1 tablet p.r.n. for pain. ) HEENT: No scleral icterus. Oropharynx: Mucous membranes slightly dry. Heart: Regular rate and rhythm. No murmur appreciated. Lungs: Clear to auscultation, though decreased breath sounds throughout and a few scattered crackles. Abdomen: Bowel sounds are somewhat decreased. Abdomen is relatively flat and nondistended. There is some tenderness to palpation in the mid epigastrium and slightly to the right of the mid epigastrium. Negative Rubin sign. The remainder of the abdomen is soft and nontender. No palpable masses or organomegaly. Well-healed surgical incisions. DIAGNOSTIC STUDIES/LAB DATA: Laboratory of note, white blood cell count 21,400 (up from admission of 16.8 with left shift). Creatinine is 0.96, down from a peak of 1.63 on admission. Lactic acid was normal on admission at 1.4. Troponins were mildly elevated initially, did increase and on most recent check were down to 1.83. Total bilirubin was normal at 0.5, AST 74, ALT 48, alkaline phosphatase 351 (down from 439). IMPRESSION: Acalculous cholecystitis. PLAN: The patient is a poor surgical candidate for a number of reasons including her significant coronary artery disease, her COPD, and ongoing smoking history as well as her current anticoagulation. Case was discussed with both Dr. Santos and Dr. Mcginnis, who suggested that a HIDA scan be obtained in the event the patient deteriorates further and needs intervention in the form of percutaneous cholecystostomy and/or cholecystectomy. We will follow the patient; but at this point, would recommend continued medical therapy in the form of IV antibiotics. JUDY SAGASTUME CC: Dr. Burciaga* [id number]/[facility] #: [id number] [facility] MEDICAL CENTERJaleesa
[2016-04-15] MEDS: NS 0.9% 1000 ML* 1,000 ML IV SCH (02:46)
[2016-04-15] MEDS: Levothyroxine TAB* 25 MCG TAB PO SCH (05:00)
[2016-04-15] MEDS: Heparin VIAL(*) 5000 UNITS/ML VIAL (FIVE THOUSAND) SUBCUT SCH ×2 (05:06→13:35)
[2016-04-15] MEDS: Piperac/Tazob 3.375 gm in NS* 3.375 GM/100 ML BAG IVPB SCH ×3 (05:07→21:17)
[2016-04-15] MEDS: Morphine INJ* 2 MG/ML 1 ML CARPUJECT IV PRN ×2 (05:14→22:35)
[2016-04-15 05:30] LABS: Hematocrit 29 % (35-47); Hemoglobin 9.6 g/dl (12.0-16.0); Mean Corpuscular HGB Conc 33 g/dl (31-36); Mean Corpuscular Hemoglobin 30 pg (27-31); Mean Corpuscular Volume 93 fL (80-97); Mean Platelet Volume 8 um3 (7.4-10.4); Red Blood Count 3.16 10^6/ul (4.0-5.4); Red Cell Distribution Width 17 % (10.5-15)
[2016-04-15 05:42] LABS: Albumin 2.4 g/dL (3.2-5.2); BUN/Creatinine Ratio 18.6 (8-20); C Reactive Protein 64.24 mg/L (< 5.00); Calcium 7.3 mg/dL (8.6-10.3); EGFR Non-African American 80.1 (>60); Potassium 2.8 mmol/L (3.5-5.0); Total Bilirubin 0.4 mg/dL (0.2-1.0); Total Protein 5.4 g/dL (6.4-8.9)
[2016-04-15] MEDS: KCL 10 MEQ/50 ML IVPREMIX* 10 MEQ/50 ML BAG IV SCH ×3 (08:31→19:04)
[2016-04-15] MEDS: Artificial Tears* 15 ML BTL BOTH EYES SCH ×4 (08:31→21:32)
[2016-04-15] MEDS: Aspirin EC Low Dose* 81 MG TAB.EC PO SCH (08:32)
[2016-04-15] MEDS: Multivitamins/Minerals TAB PO SCH (08:32)
[2016-04-15] MEDS: Folic Acid TAB* 1 MG PO SCH (08:32)
[2016-04-15] MEDS: Fluticasone NASAL SPRAY 50MCG* 16 gm SPRAY BTL BOTH NARES SCH (08:32)
[2016-04-15] MEDS: CMCS: Pantoprazole TAB (NF) 40 MG TAB PO SCH (08:32)
[2016-04-15] MEDS: Gabapentin CAP(*) 300 MG PO SCH ×3 (08:32→21:24)
[2016-04-15] MEDS: Metoprolol Tartrate TAB* 25 MG PO SCH ×2 (08:33→21:24)
[2016-04-15] MEDS: Clopidogrel TAB* 75 MG PO SCH (08:33)
[2016-04-15] MEDS ORDERED: NS 0.9% w/ 40 Meq KCL 1000 ML* 1,000 ML IV SCH (09:00)
[2016-04-15] MEDS: FEXOFENADINE 180 MG PO SCH (10:43)
[2016-04-15] MEDS: Roflumilast (NF) 500 MCG TAB PO SCH (10:43)
[2016-04-15] MEDS: HYDROcodone/ACETAMIN 5-325 MG* 1 TAB PO PRN ×2 (11:41→17:50)
--- NOTE | 2016-04-15 12:53 | RAD ---
Indication: Right upper quadrant pain. Hepatobiliary scan was performed after intravenous injection of 5.8 mCi of technetium 99m mebrofenin. There is prompt uptake of radiotracer by the hepatocytes. There is biliary excretion at 15 minutes. Bowel activity is noted at 20 minutes. Reflux into the gallbladder is noted at 35 minutes. The patient refused any further imaging. IMPRESSION: There appears to be patent cystic duct.
--- NOTE | 2016-04-15 16:38 | ECHO ---
Patient: HUGH FONSECA [facility] Rec#: [id number] : 1935 Date: 04/15/2016 Age: 81y Height: 160.02 cm / 63.0 in Weight: 44 kg / 97.0 lbs Sex: F BSA: 1.42 Room#: 446 Admit Date#: 04/12/2016 Type: Inpatient Referring: Kat Shi MD Reading: Bret Osorio MD [employer] Specialist: Aj Desouza RDCS CC: Nancy Burciaga MD Transthoracic Echocardiogram Indication: Abnormal EKG BP: 175/67 HR: 72 Rhythm: NSR Findings History: Nonobstructive CAD, COPD, active smoker, anemia, 1/6 systolic ejection murmur . Technical Comments: The study is technically difficult. Completed 1530. The study is technically limited due to the patient's history of COPD. The study is technically limited due to the patient's smoking history. The study was technically limited due to the patient's inability to lay in the left lateral decubitus position. Left Ventricle: The left ventricular chamber size is normal. Global left ventricular wall motion and contractility are within normal limits.Cannot exclude mild relative lateraly hypokinesis (segment not well seen in some views). There is normal left ventricular systolic function. The estimated ejection fraction is 60-65%. Normal left ventricular diastolic filling is observed. Left Atrium: The left atrial chamber size is normal. Right Ventricle: The right ventricular cavity size is normal. The right ventricular global systolic function is normal. Right Atrium: The right atrial cavity size is normal. Aortic Valve: The aortic valve structure is not well visualized.The degree of stenosis is difficult to quantify by 2d and the doppler which seems to underestimate the aortic velocity. Consider low gradient aortic stenosis. Aortic stenosis seems moderate by suboptimal 2d. The continuity equation suggests critical aortic stenosis but this may underestimate the area due to technical issues. The aortic valve leaflets are moderately thickened. Systolic excursion of the aortic valve cusps is reduced. There is no evidence of aortic regurgitation. There is moderate aortic stenosis. The highest aortic valve velocity was obtained with the standard probe from the A5C view. Mitral Valve: There is mitral annular calcification. The mitral valve leaflets are moderately thickened. There is moderate mitral regurgitation. There is no evidence of mitral stenosis. Tricuspid Valve: The tricuspid valve leaflets are normal. There is mild to moderate tricuspid regurgitation. There is evidence of mild pulmonary hypertension. There is no tricuspid stenosis. Pulmonic Valve: The pulmonic valve structure is not well visualized. Pericardium: The pericardium appears normal. There is no pericardial effusion. Aorta: The ascending aorta is not well visualized. The aortic arch is not well visualized. The aortic root is normal in size. Pulmonary Artery: The main pulmonary artery is not well visualized. Venous: The inferior vena cava appears normal in size. There is a greater than 50% respiratory change in the inferior vena cava dimension. Conclusions The study is technically difficult. Completed 1530. Global left ventricular wall motion and contractility are within normal limits.Cannot exclude mild relative lateraly hypokinesis (segment not well seen in some views). The estimated ejection fraction is 60-65%. The left ventricular chamber size is normal. The aortic valve structure is not well visualized. The degree of stenosis is difficult to quantify by 2d and the doppler which seems to underestimate the aortic velocity. Consider low gradient aortic stenosis. Aortic stenosis seems moderate by suboptimal 2d. The continuity equation suggests critical aortic stenosis but this may underestimate the area due to technical issues. There is moderate aortic stenosis. There is mitral annular calcification. There is moderate mitral regurgitation. There is mild to moderate tricuspid regurgitation. There is evidence of mild pulmonary hypertension. Similar to . Consider Transesophageal echo to better define the degree of Aortic stenosis if clinically indicated. Measurements Name Value Normal Range RVIDd (AP) 2D 2.3 cm (0.9 - 2.6) RAd ISD 4CH 3.7 cm (3.4 - 4.9) RA (A4C)W 2 cm (2.9 - 4.6) IVSd (2D) 0.8 cm (0.6 - 1) LVPWd (2D) 0.7 cm (0.6 - 1) LVIDd (2D) 3.7 cm (3.6 - 5.4) LVIDs (2D) 2.4 cm - LV FS (2D) 34 % (25 - 45) Aortic Annulus 1.4 cm (1.4 - 2.6) Ao root diameter (2D) 2.1 cm (2.1 - 3.5) LA dimension (AP) 2D 3.2 cm (2.3 - 3.8) LAd ISD 4CH 3.6 cm (2.9 - 5.3) LA ISD 4CH W 2.9 cm (2.5 - 4.5) Name Value Normal Range LA ESV SP 4CH (A/L) 19.72 ml - LA ESV SP 4CH (MOD) 16.53 ml - Name Value Normal Range MV E-wave Vmax 1 m/sec - MV deceleration time 116 msec - MV A-wave Vmax 0.9 m/sec - MV E:A ratio 1.18 ratio - LV septal e' Vmax 0.07 m/sec - LV lateral e' Vmax 0.08 m/sec - LV E:e' septal ratio 14.29 ratio - LV E:e' lateral ratio 12.5 ratio - Name Value Normal Range AV Vmax 2 m/sec - AV VTI 49 cm - AV peak gradient 16.18 mmHg - AV mean gradient 9.33 mmHg - LVOT diameter 1.3 cm - LVOT Vmax 0.6 m/sec - LVOT VTI 12.2 cm - LVOT peak gradient 1.41 mmHg - LVOT mean gradient 0.79 mmHg - YAN (continuity Vmax) 0.4 cm2 - YAN (continuity VTI) 0.4 cm2 - Name Value Normal Range TR Vmax 3 m/sec - TR peak gradient 36 mmHg - RAP 3 mmHg - RVSP 39 mmHg - IVC diameter 1.5 cm -
--- NOTE | 2016-04-15 16:47 | PN ---
Subjective Date of Service: 04/15/16 Interval History: HOSPITALIST PROGRESS NOTE Patient seen and examined at bedside. She feels a little better today, with less abdominal pain. No N/V, feels hungry. Family History: Unchanged from Admission Social History: Unchanged from Admission Past Medical History: Unchanged from Admission Objective Active Medications: Acetaminophen (Tylenol Tab*) 650 mg PO Q4H PRN PRN Reason: FEVER/PAIN Last Admin: 04/15/16 15:21 Dose: 650 mg Acetaminophen/Hydrocodone Bitart ([place] 5-325 Tab*) 1 tab PO Q6H PRN PRN Reason: PAIN Last Admin: 04/15/16 11:41 Dose: 1 tab Albuterol (Ventolin Hfa Inhaler*) 2 puff INH Q6H PRN PRN Reason: SHORTNESS OF BREATH Alprazolam (Xanax Tab*) 0.25 mg PO QID PRN PRN Reason: ANXIETY Last Admin: 04/14/16 20:06 Dose: 0.25 mg Aspirin (Aspirin Ec Low Dose*) 81 mg PO DAILY [facility] Last Admin: 04/15/16 08:32 Dose: 81 mg Atorvastatin Calcium (Lipitor*) 80 mg PO QPM [facility] Last Admin: 04/14/16 17:47 Dose: 80 mg Clopidogrel Bisulfate (Plavix Tab*) 75 mg PO DAILY [facility] Last Admin: 04/15/16 08:33 Dose: 75 mg Fexofenadine HCl (Chaya 180 (Nf)) 180 mg PO DAILY [facility] PRN Reason: Protocol Last Admin: 04/15/16 10:43 Dose: Not Given Fluticasone Propionate (Flonase Nasal [place] 50mcg*) 1 spray BOTH NARES DAILY [facility] Last Admin: 04/15/16 08:32 Dose: 1 spray Folic Acid (Folvite Tab*) 1 mg PO DAILY [facility] Last Admin: 04/15/16 08:32 Dose: 1 mg Gabapentin (Neurontin Cap(*)) 600 mg PO TID [facility] Last Admin: 04/15/16 13:35 Dose: 600 mg Guaifenesin (Mucinex*) 600 mg PO BID PRN PRN Reason: CONGESTION Last Admin: 04/14/16 21:27 Dose: 600 mg Heparin Sodium (Porcine) (Heparin Vial(*)) 5,000 units SUBCUT Q8HR [facility] Last Admin: 04/15/16 13:35 Dose: 5,000 units Piperacillin Sod/Tazobactam Sod (Zosyn 3.375 Gm In Ns Premix*) 3.375 gm in 100 mls @ 25 mls/hr IVPB Q8H [facility] Last Admin: 04/15/16 12:36 Dose: 25 mls/hr Potassium Chloride/Sodium Chloride (Ns 0.9% W/ 40 Meq Kcl 1000 Ml*) 1,000 mls @ 100 mls/hr IV PER RATE [facility] Last Admin: 04/15/16 08:31 Dose: 100 mls/hr Levothyroxine Sodium (Synthroid Tab*) 25 mcg PO 0600 [facility] Last Admin: 04/15/16 05:00 Dose: Not Given Metoprolol Tartrate (Lopressor Tab*) 25 mg PO BID [facility] Last Admin: 04/15/16 08:33 Dose: 25 mg Montelukast Sodium (Singulair Tab*) 10 mg PO BEDTIME [facility] Last Admin: 04/14/16 20:49 Dose: 10 mg Morphine Sulfate (Morphine Inj (Syringe)*) 2 mg IV Q4H PRN PRN Reason: PAIN Last Admin: 04/15/16 05:14 Dose: 2 mg Multivitamins/Minerals (Theragran/Minerals Tab*) 1 tab PO DAILY [facility] Last Admin: 04/15/16 08:32 Dose: 1 tab Doxepin Hcl (Sleep) ([Silenor] 12 Mg) 12 mg PO BEDTIME [facility] Last Admin: 04/14/16 20:50 Dose: Not Given Umeclidinium [place] [Incruse Ellipta] 62.5 Mcg 62.5 mcg INH BID [facility] Last Admin: 04/15/16 10:43 Dose: Not Given Ondansetron HCl (Zofran Inj*) 4 mg IV Q4H PRN PRN Reason: NAUSEA/VOMITING Last Admin: 04/12/16 18:33 Dose: 4 mg Pantoprazole Sodium (Protonix Tab (Nf)) 40 mg PO QAM [facility] Last Admin: 04/15/16 08:32 Dose: 40 mg Polyvinyl Alcohol (Polyvinyl Alcohol 1.4% Opth*) 1 drop BOTH EYES TID [facility] Last Admin: 04/15/16 13:41 Dose: 1 drop Roflumilast (Daliresp (Nf)) 500 mcg PO DAILY [facility] Last Admin: 04/15/16 10:43 Dose: Not Given Vital Signs 04/15/16 15:44 Temperature 97.2 F Pulse Rate 69 Respiratory 16 Rate Blood Pressure 166/66 (mmHg) O2 Sat by Pulse 100 Oximetry Appearance: Elderly lady lying in bed in NAD. Eyes: No Scleral Icterus Ears/Nose/Mouth/Throat: Mucous Membranes Moist Neck: Trachea Midline Respiratory: Symmetrical Chest Expansion and Respiratory Effort, - - BS+ bilaterally coarse, no added sounds Cardiovascular: RRR - Normal S1 and S2 Abdominal: NL Sounds; No Tenderness; No Distention Extremities: No Edema Neurological: - - AAOx2 (self and place), MEDINA Lines/Tubes/Other Access: Clean, Dry and Intact Peripheral IV Nutrition: Taking PO's Result Diagrams: 04/15/16 04:51 04/15/16 04:51 Assess/Plan/Problems-Billing Assessment: Mrs. 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 - Patient Problems (1) Acalculous cholecystitis Comment: - CT and US reviewed. - Clinically, she feels better with less abdominal pain. LFTs and WBC trending down. - Afebrile with stable VS. - Continue Zosyn. - Surgery input appreciated - plan for HIDA scan today. (2) Hypokalemia Comment: - Replete. (3) Elevated troponin Comment: - Suspect increased demand in the setting of cholecystitis. - Cardiology input appreciated - not associated with chest discomfor or EKG changes. Suspect her troponin elevation is non-ischemic. He did not recommend any further testing or change in medication. - Continue Aspirin, Plavix, statin and beta-marcela. - Follow echo report. (4) ELIZABETH (acute kidney injury) Comment: - Likely pre- renal - resolved. (5) COPD (chronic obstructive pulmonary disease) Comment: - Stable, but patient continues to smoke (she makes her own cigarettes and is not sure how many she smokes a day - she thinks <20 a day). Advised about importance of quitting. - Continue montelukast and bronchodilators. (6) DVT prophylaxis Comment: - SQ heparin. (7) Full code status Status and Disposition: Inpatient for IV antibiotics.
[2016-04-15] MEDS: Atorvastatin* 80 MG TAB PO SCH (17:25)
[2016-04-15] MEDS: Enoxaparin(*) 40 MG/0.4 ML SYR SUBCUT SCH (17:25)
[2016-04-15] MEDS ORDERED: KCL 10 MEQ/50 ML IVPREMIX* 10 MEQ/50 ML BAG ONE (19:02)
[2016-04-15] MEDS: DOXEPIN PO SCH (21:09)
[2016-04-15] MEDS: Montelukast Sodium TAB* 10 MG PO SCH (21:24)
[2016-04-15] MEDS: ALPRAZolam TAB* 0.5 MG PO PRN (22:35)
[2016-04-16] MEDS: HYDROcodone/ACETAMIN 5-325 MG* 1 TAB PO PRN ×3 (00:17→18:00)
[2016-04-16] MEDS: Levothyroxine TAB* 25 MCG TAB PO SCH (05:07)
[2016-04-16] MEDS: Enoxaparin(*) 40 MG/0.4 ML SYR SUBCUT SCH ×2 (05:08→17:54)
[2016-04-16] MEDS: Piperac/Tazob 3.375 gm in NS* 3.375 GM/100 ML BAG IVPB SCH ×3 (05:10→21:17)
[2016-04-16 06:50] LABS: Albumin 2.2 g/dL (3.2-5.2); BUN/Creatinine Ratio 15.1 (8-20); Calcium 7.4 mg/dL (8.6-10.3); EGFR African American 98.2 (>60); EGFR Non-African American 76.3 (>60); Globulin 2.9 g/dL (2-4); Potassium 3.8 mmol/L (3.5-5.0); Total Bilirubin 0.4 mg/dL (0.2-1.0); Total Protein 5.1 g/dL (6.4-8.9)
[2016-04-16 06:53] LABS: Hematocrit 27 % (35-47); Hemoglobin 9.1 g/dl (12.0-16.0); Mean Corpuscular HGB Conc 33 g/dl (31-36); Mean Corpuscular Hemoglobin 31 pg (27-31); Mean Corpuscular Volume 92 fL (80-97); Mean Platelet Volume 9 um3 (7.4-10.4); Red Blood Count 2.96 10^6/ul (4.0-5.4); Red Cell Distribution Width 17 % (10.5-15); White Blood Count 13.2 10^3/ul (3.5-10.8)
[2016-04-16 06:55] LABS: Add Diff/Slide Review? Slide Review Added; Comments Flag Yes
[2016-04-16 07:01] LABS: Troponin I 0.37 ng/mL (<0.04)
--- NOTE | 2016-04-16 08:25 | RAD ---
INDICATION: Preoperative chest x-ray COMPARISON: Most recent comparison chest x-ray is 04/12/2016 TECHNIQUE: PA and lateral views of the chest were obtained. FINDINGS: Surgical clips are again noted in the left axilla. The heart and mediastinum are normal in size and contour. There is coarse calcification overlying the arch of the aorta. Similar to the previous chest x-ray the lungs again appear hyperaerated in the AP view. On the lateral view there are flattened diaphragm and increased retrosternal airspace. Indistinct density at the left lung base is similar in appearance to the previous chest x-ray. Elsewhere the lungs are grossly clear.. There is no evidence of large pleural effusion. Visualized bones are normal for the patient's age. There is no radiographic evidence of free air beneath the diaphragm IMPRESSION: 1. AGAIN SEEN IS THE STIGMATA OF CHRONIC OBSTRUCTIVE PULMONARY DISEASE. 2. FAINT DENSITY AT THE LEFT LUNG BASE IS UNCHANGED IN THE PREVIOUS CHEST X-RAY POSSIBLY REPRESENTING SCAR OR ATELECTASIS.
[2016-04-16] MEDS: Aspirin EC Low Dose* 81 MG TAB.EC PO SCH (08:49)
[2016-04-16] MEDS: Metoprolol Tartrate TAB* 25 MG PO SCH ×2 (08:49→21:25)
[2016-04-16] MEDS: Clopidogrel TAB* 75 MG PO SCH (08:49)
[2016-04-16] MEDS: Multivitamins/Minerals TAB PO SCH (08:49)
[2016-04-16] MEDS: Fluticasone NASAL SPRAY 50MCG* 16 gm SPRAY BTL BOTH NARES SCH (08:50)
[2016-04-16] MEDS: Artificial Tears* 15 ML BTL BOTH EYES SCH ×3 (08:50→21:28)
[2016-04-16] MEDS: Gabapentin CAP(*) 300 MG PO SCH ×3 (08:50→21:23)
[2016-04-16] MEDS: Folic Acid TAB* 1 MG PO SCH (08:50)
[2016-04-16] MEDS: Roflumilast (NF) 500 MCG TAB PO SCH (09:30)
[2016-04-16] MEDS: FEXOFENADINE 180 MG PO SCH (09:30)
[2016-04-16] MEDS: CMCS: Pantoprazole TAB (NF) 40 MG TAB PO SCH (09:36)
[2016-04-16] MEDS: ALPRAZolam TAB* 0.5 MG PO PRN (14:26)
[2016-04-16] MEDS: Atorvastatin* 80 MG TAB PO SCH (17:54)
--- NOTE | 2016-04-16 17:57 | PN ---
Subjective Date of Service: 04/16/16 Interval History: HOSPITALIST PROGRESS NOTE Patient seen and examined at bedside. She offers no new complaints at this time. Family History: Unchanged from Admission Social History: Unchanged from Admission Past Medical History: Unchanged from Admission Objective Active Medications: Acetaminophen (Tylenol Tab*) 650 mg PO Q4H PRN PRN Reason: FEVER/PAIN Last Admin: 04/15/16 15:21 Dose: 650 mg Acetaminophen/Hydrocodone Bitart ([place] 5-325 Tab*) 1 tab PO Q6H PRN PRN Reason: PAIN Last Admin: 04/16/16 08:49 Dose: 1 tab Albuterol (Ventolin Hfa Inhaler*) 2 puff INH Q6H PRN PRN Reason: SHORTNESS OF BREATH Alprazolam (Xanax Tab*) 0.25 mg PO QID PRN PRN Reason: ANXIETY Last Admin: 04/16/16 14:26 Dose: 0.25 mg Aspirin (Aspirin Ec Low Dose*) 81 mg PO DAILY [facility] Last Admin: 04/16/16 08:49 Dose: 81 mg Atorvastatin Calcium (Lipitor*) 80 mg PO QPM [facility] Last Admin: 04/15/16 17:25 Dose: 80 mg Clopidogrel Bisulfate (Plavix Tab*) 75 mg PO DAILY [facility] Last Admin: 04/16/16 08:49 Dose: 75 mg Enoxaparin Sodium (Lovenox(*)) 40 mg SUBCUT Q12H [facility] Last Admin: 04/16/16 05:08 Dose: 40 mg Fexofenadine HCl (Chaya 180 (Nf)) 180 mg PO DAILY [facility] PRN Reason: Protocol Last Admin: 04/16/16 09:30 Dose: Not Given Fluticasone Propionate (Flonase Nasal [place] 50mcg*) 1 spray BOTH NARES DAILY [facility] Last Admin: 04/16/16 08:50 Dose: 1 spray Folic Acid (Folvite Tab*) 1 mg PO DAILY [facility] Last Admin: 04/16/16 08:50 Dose: 1 mg Gabapentin (Neurontin Cap(*)) 600 mg PO TID [facility] Last Admin: 04/16/16 14:14 Dose: 600 mg Guaifenesin (Mucinex*) 600 mg PO BID PRN PRN Reason: CONGESTION Last Admin: 04/14/16 21:27 Dose: 600 mg Piperacillin Sod/Tazobactam Sod (Zosyn 3.375 Gm In Ns Premix*) 3.375 gm in 100 mls @ 25 mls/hr IVPB Q8H [facility] Last Admin: 04/16/16 14:19 Dose: 25 mls/hr Levothyroxine Sodium (Synthroid Tab*) 25 mcg PO 0600 [facility] Last Admin: 04/16/16 05:07 Dose: 25 mcg Metoprolol Tartrate (Lopressor Tab*) 25 mg PO BID [facility] Last Admin: 04/16/16 08:49 Dose: 25 mg Montelukast Sodium (Singulair Tab*) 10 mg PO BEDTIME [facility] Last Admin: 04/15/16 21:24 Dose: 10 mg Morphine Sulfate (Morphine Inj (Syringe)*) 2 mg IV Q4H PRN PRN Reason: PAIN Last Admin: 04/15/16 22:35 Dose: 2 mg Multivitamins/Minerals (Theragran/Minerals Tab*) 1 tab PO DAILY [facility] Last Admin: 04/16/16 08:49 Dose: 1 tab Doxepin Hcl (Sleep) ([Silenor] 12 Mg) 12 mg PO BEDTIME [facility] Last Admin: 04/15/16 21:09 Dose: Not Given Umeclidinium [place] [Incruse Ellipta] 62.5 Mcg 62.5 mcg INH BID [facility] Last Admin: 04/16/16 09:30 Dose: Not Given Ondansetron HCl (Zofran Inj*) 4 mg IV Q4H PRN PRN Reason: NAUSEA/VOMITING Last Admin: 04/12/16 18:33 Dose: 4 mg Pantoprazole Sodium (Protonix Tab (Nf)) 40 mg PO QAM [facility] Last Admin: 04/16/16 09:36 Dose: 40 mg Polyvinyl Alcohol (Polyvinyl Alcohol 1.4% Opth*) 1 drop BOTH EYES TID [facility] Last Admin: 04/16/16 14:27 Dose: 1 drop Roflumilast (Daliresp (Nf)) 500 mcg PO DAILY [facility] Last Admin: 04/16/16 09:30 Dose: Not Given Vital Signs 04/16/16 04/16/16 04/16/16 07:59 08:49 08:50 Temperature 97.9 F Pulse Rate 59 Respiratory 20 18 18 Rate Blood Pressure 145/52 (mmHg) O2 Sat by Pulse 98 Oximetry Oxygen Devices in Use Now: None Appearance: Elderly lady sitting up in bed in NAD. Eyes: No Scleral Icterus Ears/Nose/Mouth/Throat: Mucous Membranes Moist Neck: Trachea Midline Respiratory: Symmetrical Chest Expansion and Respiratory Effort, Clear to Auscultation Cardiovascular: RRR - Normal S1 and S2 Abdominal: NL Sounds; No Tenderness; No Distention Extremities: No Edema Neurological: - - AAOx2 (self and place), MEDINA Lines/Tubes/Other Access: Clean, Dry and Intact Peripheral IV Nutrition: Taking PO's Result Diagrams: 04/16/16 05:58 04/16/16 05:59 Assess/Plan/Problems-Billing Assessment: Mrs. 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 - Patient Problems (1) Acalculous cholecystitis Comment: - CT and US reviewed. - Clinically, she feels better with less abdominal pain. LFTs and WBC trending down. - Afebrile with stable VS. - Continue Zosyn #5. - HIDA scan showed patent biliary duct. (2) Hypokalemia Comment: - Replete. (3) Elevated troponin Comment: - Suspect increased demand in the setting of cholecystitis. - Cardiology input appreciated - not associated with chest discomfor or EKG changes. Suspect her troponin elevation is non-ischemic. He did not recommend any further testing or change in medication. - Continue Aspirin, Plavix, statin and beta-marcela. - Echo reviewed. (4) ELIZABETH (acute kidney injury) Comment: - Likely pre- renal - resolved. (5) COPD (chronic obstructive pulmonary disease) Comment: - Stable, but patient continues to smoke (she makes her own cigarettes and is not sure how many she smokes a day - she thinks <20 a day). Advised about importance of quitting. - Continue montelukast and bronchodilators. (6) DVT prophylaxis Comment: - SQ heparin. (7) Full code status Status and Disposition: Inpatient for IV antibiotics.
[2016-04-16] MEDS: Morphine INJ* 2 MG/ML 1 ML CARPUJECT IV PRN (21:08)
[2016-04-16] MEDS: DOXEPIN PO SCH (21:24)
[2016-04-16] MEDS: Montelukast Sodium TAB* 10 MG PO SCH (21:25)
[2016-04-17] MEDS: HYDROcodone/ACETAMIN 5-325 MG* 1 TAB PO PRN ×4 (00:16→23:32)
[2016-04-17 05:38] LABS: Hematocrit 28 % (35-47); Hemoglobin 9.5 g/dl (12.0-16.0); Mean Corpuscular HGB Conc 34 g/dl (31-36); Mean Corpuscular Hemoglobin 31 pg (27-31); Mean Corpuscular Volume 93 fL (80-97); Mean Platelet Volume 8 um3 (7.4-10.4); Red Blood Count 3.05 10^6/ul (4.0-5.4); Red Cell Distribution Width 17 % (10.5-15)
[2016-04-17 05:41] LABS: Comments Flag Yes
[2016-04-17] MEDS: Levothyroxine TAB* 25 MCG TAB PO SCH (05:41)
[2016-04-17] MEDS: Enoxaparin(*) 40 MG/0.4 ML SYR SUBCUT SCH ×2 (05:43→17:55)
[2016-04-17] MEDS: Piperac/Tazob 3.375 gm in NS* 3.375 GM/100 ML BAG IVPB SCH ×3 (05:48→23:05)
--- NOTE | 2016-04-17 09:59 | RAD ---
Indication: Chest pain. Ventilation and perfusion lung scan was performed. 13.9 mCi of xenon-133 was given for the ventilation portion of the study. 6.1 mCi of technetium 99m macroaggregated albumin was injected for the perfusion portion of the study. The ventilation scan demonstrates no evidence of air trapping. Perfusion lung scan demonstrates multiple areas of perfusion defects predominantly in the lung bases although left posterior upper lobe and right posterior upper lobe defects are also noted. These are consistent with a ventilation and perfusion lung matches of more than 2 segments. Chest x-ray demonstrates no focal abnormality. IMPRESSION: Multiple areas of perfusion defect without corresponding ventilation defects suggestive of multiple segmental and larger ventilation and perfusion mismatches. This is a high probability scan for pulmonary embolus.
[2016-04-17 10:01] LABS: BUN/Creatinine Ratio 11.8 (8-20); EGFR African American 106.5 (>60); EGFR Non-African American 82.8 (>60); Potassium 3.6 mmol/L (3.5-5.0)
[2016-04-17] MEDS: Gabapentin CAP(*) 300 MG PO SCH ×3 (10:27→22:56)
[2016-04-17] MEDS: Aspirin EC Low Dose* 81 MG TAB.EC PO SCH (10:28)
[2016-04-17] MEDS: Multivitamins/Minerals TAB PO SCH (10:28)
[2016-04-17] MEDS: Folic Acid TAB* 1 MG PO SCH (10:28)
[2016-04-17] MEDS: Metoprolol Tartrate TAB* 25 MG PO SCH ×2 (10:28→22:58)
[2016-04-17] MEDS: CMCS: Pantoprazole TAB (NF) 40 MG TAB PO SCH (10:28)
[2016-04-17] MEDS: Clopidogrel TAB* 75 MG PO SCH (10:28)
[2016-04-17] MEDS: Fluticasone NASAL SPRAY 50MCG* 16 gm SPRAY BTL BOTH NARES SCH (10:31)
[2016-04-17] MEDS: Artificial Tears* 15 ML BTL BOTH EYES SCH ×3 (10:31→23:01)
[2016-04-17] MEDS: FEXOFENADINE 180 MG PO SCH (11:14)
[2016-04-17] MEDS: Roflumilast (NF) 500 MCG TAB PO SCH (11:14)
[2016-04-17] MEDS: amLODIPine TAB* 5 MG PO SCH (12:29)
[2016-04-17] MEDS: Morphine INJ* 2 MG/ML 1 ML CARPUJECT IV PRN (13:54)
[2016-04-17] MEDS: Warfarin TAB(*) 3 MG PO SCH (17:55)
[2016-04-17] MEDS: Atorvastatin* 80 MG TAB PO SCH (17:55)
--- NOTE | 2016-04-17 18:14 | PN ---
Subjective Date of Service: 04/17/16 Interval History: HOSPITALIST PROGRESS NOTE Patient seen and examined at bedside. She offers no new complaints. A little more paranoid today, telling me stories about a patient that was trying to run away last night, got in to her room, had a gun. Family History: Unchanged from Admission Social History: Unchanged from Admission Past Medical History: Unchanged from Admission Objective Active Medications: Acetaminophen (Tylenol Tab*) 650 mg PO Q4H PRN PRN Reason: FEVER/PAIN Last Admin: 04/15/16 15:21 Dose: 650 mg Acetaminophen/Hydrocodone Bitart ([place] 5-325 Tab*) 1 tab PO Q6H PRN PRN Reason: PAIN Last Admin: 04/17/16 16:53 Dose: 1 tab Albuterol (Ventolin Hfa Inhaler*) 2 puff INH Q6H PRN PRN Reason: SHORTNESS OF BREATH Alprazolam (Xanax Tab*) 0.25 mg PO QID PRN PRN Reason: ANXIETY Last Admin: 04/16/16 14:26 Dose: 0.25 mg Amlodipine Besylate (Norvasc Tab*) 5 mg PO DAILY [facility] Last Admin: 04/17/16 12:29 Dose: 5 mg Aspirin (Aspirin Ec Low Dose*) 81 mg PO DAILY [facility] Last Admin: 04/17/16 10:28 Dose: 81 mg Atorvastatin Calcium (Lipitor*) 80 mg PO QPM [facility] Last Admin: 04/17/16 17:55 Dose: 80 mg Clopidogrel Bisulfate (Plavix Tab*) 75 mg PO DAILY [facility] Last Admin: 04/17/16 10:28 Dose: 75 mg Enoxaparin Sodium (Lovenox(*)) 40 mg SUBCUT Q12H [facility] Last Admin: 04/17/16 17:55 Dose: 40 mg Fexofenadine HCl (Chaya 180 (Nf)) 180 mg PO DAILY [facility] PRN Reason: Protocol Last Admin: 04/17/16 11:14 Dose: Not Given Fluticasone Propionate (Flonase Nasal [place] 50mcg*) 1 spray BOTH NARES DAILY [facility] Last Admin: 04/17/16 10:31 Dose: 1 spray Folic Acid (Folvite Tab*) 1 mg PO DAILY [facility] Last Admin: 04/17/16 10:28 Dose: 1 mg Gabapentin (Neurontin Cap(*)) 600 mg PO TID [facility] Last Admin: 04/17/16 13:55 Dose: 600 mg Guaifenesin (Mucinex*) 600 mg PO BID PRN PRN Reason: CONGESTION Last Admin: 04/14/16 21:27 Dose: 600 mg Piperacillin Sod/Tazobactam Sod (Zosyn 3.375 Gm In Ns Premix*) 3.375 gm in 100 mls @ 25 mls/hr IVPB Q8H [facility] Last Admin: 04/17/16 13:55 Dose: 25 mls/hr Levothyroxine Sodium (Synthroid Tab*) 25 mcg PO 0600 [facility] Last Admin: 04/17/16 05:41 Dose: 25 mcg Metoprolol Tartrate (Lopressor Tab*) 25 mg PO BID [facility] Last Admin: 04/17/16 10:28 Dose: 25 mg Montelukast Sodium (Singulair Tab*) 10 mg PO BEDTIME [facility] Last Admin: 04/16/16 21:25 Dose: 10 mg Morphine Sulfate (Morphine Inj (Syringe)*) 2 mg IV Q4H PRN PRN Reason: PAIN Last Admin: 04/17/16 13:54 Dose: 2 mg Multivitamins/Minerals (Theragran/Minerals Tab*) 1 tab PO DAILY [facility] Last Admin: 04/17/16 10:28 Dose: 1 tab Doxepin Hcl (Sleep) ([Silenor] 12 Mg) 12 mg PO BEDTIME [facility] Last Admin: 04/16/16 21:24 Dose: Not Given Umeclidinium [place] [Incruse Ellipta] 62.5 Mcg 62.5 mcg INH BID [facility] Last Admin: 04/17/16 11:14 Dose: Not Given Ondansetron HCl (Zofran Inj*) 4 mg IV Q4H PRN PRN Reason: NAUSEA/VOMITING Last Admin: 04/12/16 18:33 Dose: 4 mg Pantoprazole Sodium (Protonix Tab (Nf)) 40 mg PO QAM [facility] Last Admin: 04/17/16 10:28 Dose: 40 mg Polyvinyl Alcohol (Polyvinyl Alcohol 1.4% Opth*) 1 drop BOTH EYES TID [facility] Last Admin: 04/17/16 14:56 Dose: 1 drop Roflumilast (Daliresp (Nf)) 500 mcg PO DAILY [facility] Last Admin: 01/28/17 11:14 Dose: Not Given Warfarin Sodium (Coumadin Tab(*)) 3 mg PO DAILY@1700 [facility] PRN Reason: Protocol Last Admin: 04/17/16 17:55 Dose: 3 mg Vital Signs 04/17/16 04/17/16 04/17/16 13:55 14:54 15:39 Temperature 98.0 F Pulse Rate 54 Respiratory 18 18 16 Rate Blood Pressure 178/62 (mmHg) O2 Sat by Pulse 99 Oximetry Oxygen Devices in Use Now: None Appearance: Elderly lady sitting up in couch in NAD. Eyes: No Scleral Icterus Ears/Nose/Mouth/Throat: Mucous Membranes Moist Neck: Trachea Midline Respiratory: Symmetrical Chest Expansion and Respiratory Effort, - - BS+ bilaterally coarse, no added sounds Cardiovascular: RRR - Normal S1 and S2 Abdominal: NL Sounds; No Tenderness; No Distention Neurological: - - AAOx2 (self and place), MEDINA Lines/Tubes/Other Access: Clean, Dry and Intact Peripheral IV Nutrition: Taking PO's Result Diagrams: 04/17/16 05:26 04/17/16 05:26 Assess/Plan/Problems-Billing Assessment: Mrs. 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 - Patient Problems (1) Pulmonary embolism Comment: - V/Q scan shows high probability of PE. Suspect EKG changes and this episode of troponin elevation was secondary to PE. - Continue Lovenox and start Warfarin. - Check LE doppler. (2) Acalculous cholecystitis Comment: - CT and US reviewed. - Clinically, she feels better with less abdominal pain. LFTs and WBC trending down. - Afebrile with stable VS. - Continue Zosyn #6. - HIDA scan showed patent biliary duct. (3) ELIZABETH (acute kidney injury) Comment: - Likely pre- renal - resolved. (4) COPD (chronic obstructive pulmonary disease) Comment: - Stable, but patient continues to smoke (she makes her own cigarettes and is not sure how many she smokes a day - she thinks <20 a day). Advised about importance of quitting. - Continue montelukast and bronchodilators. (5) Dementia Comment: - Cognitive impairment is more evident now. - Component of sundowning with worse confusion during the night - supportive care. (6) DVT prophylaxis Comment: - Lovenox/Warfarin. (7) Full code status Status and Disposition: Inpatient for IV antibiotics.
[2016-04-17] MEDS: Montelukast Sodium TAB* 10 MG PO SCH (22:58)
[2016-04-18] MEDS: DOXEPIN PO SCH (02:14)
[2016-04-18] MEDS: Levothyroxine TAB* 25 MCG TAB PO SCH (06:26)
[2016-04-18] MEDS: HYDROcodone/ACETAMIN 5-325 MG* 1 TAB PO PRN ×4 (06:27→22:20)
[2016-04-18] MEDS: Piperac/Tazob 3.375 gm in NS* 3.375 GM/100 ML BAG IVPB SCH ×3 (06:31→22:15)
[2016-04-18] MEDS: Enoxaparin(*) 40 MG/0.4 ML SYR SUBCUT SCH ×2 (06:37→17:42)
[2016-04-18] MEDS ORDERED: Spiriva Inhaler DEVICE* 1 EACH DEVICE INH ONE (09:00)
--- NOTE | 2016-04-18 09:38 | RAD ---
Indication: Pulmonary emboli. Duplex Doppler sonography of the deep venous system of both lower extremities was performed. Bilaterally the common femoral veins, proximal greater saphenous veins, proximal deep femoral veins, femoral veins, popliteal veins, posterior tibial veins appear patent and compressible. Left peroneal veins are patent and compressible. The right peroneal vein demonstrates one of the paired peroneal veins to be noncompressible. This appears to be enlarged. This is consistent with nonocclusive venous thrombosis. IMPRESSION: 1 OF THE PAIRED PERONEAL VEINS IN THE RIGHT CALF DEMONSTRATES NONOCCLUSIVE VENOUS THROMBOSIS. THE REMAINDER OF THE DEEP VENOUS SYSTEM IN EITHER LOWER EXTREMITY ARE PATENT.
[2016-04-18] MEDS: Multivitamins/Minerals TAB PO SCH (10:05)
[2016-04-18] MEDS: Gabapentin CAP(*) 300 MG PO SCH ×3 (10:05→22:18)
[2016-04-18] MEDS: amLODIPine TAB* 5 MG PO SCH (10:06)
[2016-04-18] MEDS: Folic Acid TAB* 1 MG PO SCH (10:06)
[2016-04-18] MEDS: CMCS: Pantoprazole TAB (NF) 40 MG TAB PO SCH (10:06)
[2016-04-18] MEDS: Metoprolol Tartrate TAB* 25 MG PO SCH ×2 (10:06→22:17)
[2016-04-18] MEDS: Aspirin EC Low Dose* 81 MG TAB.EC PO SCH (10:06)
[2016-04-18] MEDS: Artificial Tears* 15 ML BTL BOTH EYES SCH ×3 (10:07→22:28)
[2016-04-18] MEDS: Morphine INJ* 2 MG/ML 1 ML CARPUJECT IV PRN ×2 (10:07→22:21)
[2016-04-18] MEDS: Fluticasone NASAL SPRAY 50MCG* 16 gm SPRAY BTL BOTH NARES SCH (10:07)
[2016-04-18] MEDS: Roflumilast (NF) 500 MCG TAB PO SCH (10:13)
[2016-04-18] MEDS: Tiotropium CAP.INH* CAP.INH/18 MCG (USE ORDER SET !) INH SCH (10:19)
[2016-04-18] MEDS: Warfarin TAB(*) 3 MG PO SCH (16:40)
[2016-04-18] MEDS: guaiFENesin ER TAB 600 MG PO PRN (16:40)
[2016-04-18] MEDS: Atorvastatin* 80 MG TAB PO SCH (17:42)
--- NOTE | 2016-04-18 17:57 | PN ---
Subjective Date of Service: 04/18/16 Interval History: HOSPITALIST PROGRESS NOTE Patient seen and examined at bedside. Offers no complaints today, pain is unchanged. Continues to verbalize paranoid ideations about other patients and nurses. Family History: Unchanged from Admission Social History: Unchanged from Admission Past Medical History: Unchanged from Admission Objective Active Medications: Acetaminophen (Tylenol Tab*) 650 mg PO Q4H PRN PRN Reason: FEVER/PAIN Last Admin: 04/15/16 15:21 Dose: 650 mg Acetaminophen/Hydrocodone Bitart ([place] 5-325 Tab*) 1 tab PO Q4H PRN PRN Reason: PAIN Last Admin: 04/18/16 16:40 Dose: 1 tab Albuterol (Ventolin Hfa Inhaler*) 2 puff INH Q6H PRN PRN Reason: SHORTNESS OF BREATH Alprazolam (Xanax Tab*) 0.25 mg PO QID PRN PRN Reason: ANXIETY Last Admin: 04/16/16 14:26 Dose: 0.25 mg Amlodipine Besylate (Norvasc Tab*) 5 mg PO DAILY [facility] Last Admin: 04/18/16 10:06 Dose: 5 mg Aspirin (Aspirin Ec Low Dose*) 81 mg PO DAILY [facility] Last Admin: 04/18/16 10:06 Dose: 81 mg Atorvastatin Calcium (Lipitor*) 80 mg PO QPM [facility] Last Admin: 04/18/16 17:42 Dose: 80 mg Enoxaparin Sodium (Lovenox(*)) 40 mg SUBCUT Q12H [facility] Last Admin: 04/18/16 17:42 Dose: 40 mg Fluticasone Propionate (Flonase Nasal [place] 50mcg*) 1 spray BOTH NARES DAILY [facility] Last Admin: 04/18/16 10:07 Dose: 1 spray Folic Acid (Folvite Tab*) 1 mg PO DAILY [facility] Last Admin: 04/18/16 10:06 Dose: 1 mg Gabapentin (Neurontin Cap(*)) 600 mg PO TID [facility] Last Admin: 04/18/16 14:15 Dose: 600 mg Guaifenesin (Mucinex*) 600 mg PO BID PRN PRN Reason: CONGESTION Last Admin: 04/18/16 16:40 Dose: 600 mg Piperacillin Sod/Tazobactam Sod (Zosyn 3.375 Gm In Ns Premix*) 3.375 gm in 100 mls @ 25 mls/hr IVPB Q8H [facility] Last Admin: 04/18/16 14:16 Dose: 25 mls/hr Levothyroxine Sodium (Synthroid Tab*) 25 mcg PO 0600 [facility] Last Admin: 04/18/16 06:26 Dose: 25 mcg Metoprolol Tartrate (Lopressor Tab*) 25 mg PO BID [facility] Last Admin: 04/18/16 10:06 Dose: 25 mg Montelukast Sodium (Singulair Tab*) 10 mg PO BEDTIME [facility] Last Admin: 04/17/16 22:58 Dose: 10 mg Morphine Sulfate (Morphine Inj (Syringe)*) 2 mg IV Q4H PRN PRN Reason: PAIN Last Admin: 04/18/16 10:07 Dose: 2 mg Multivitamins/Minerals (Theragran/Minerals Tab*) 1 tab PO DAILY [facility] Last Admin: 04/18/16 10:05 Dose: 1 tab Ondansetron HCl (Zofran Inj*) 4 mg IV Q4H PRN PRN Reason: NAUSEA/VOMITING Last Admin: 04/12/16 18:33 Dose: 4 mg Pantoprazole Sodium (Protonix Tab (Nf)) 40 mg PO QAM [facility] Last Admin: 04/18/16 10:06 Dose: 40 mg Polyvinyl Alcohol (Polyvinyl Alcohol 1.4% Opth*) 1 drop BOTH EYES TID [facility] Last Admin: 04/18/16 14:16 Dose: 1 drop Roflumilast (Daliresp (Nf)) 500 mcg PO DAILY [facility] Last Admin: 04/18/16 10:13 Dose: Not Given Tiotropium [place] (Spiriva Cap.Inh*) 1 cap INH DAILY [facility] Last Admin: 04/18/16 10:19 Dose: 1 cap.inh Warfarin Sodium (Coumadin Tab(*)) 3 mg PO DAILY@1700 [facility] PRN Reason: Protocol Last Admin: 04/18/16 16:40 Dose: 3 mg Vital Signs 04/18/16 04/18/16 04/18/16 15:10 16:15 16:40 Temperature 97.9 F Pulse Rate 60 Respiratory 18 18 15 Rate Blood Pressure 170/61 (mmHg) O2 Sat by Pulse 99 Oximetry Oxygen Devices in Use Now: None Appearance: Pleasant elderly lady sitting up in bed in NAD. Eyes: No Scleral Icterus Ears/Nose/Mouth/Throat: Mucous Membranes Moist Neck: Trachea Midline Respiratory: Symmetrical Chest Expansion and Respiratory Effort, - - BS+ bilaterally with scattered rhonchi Cardiovascular: RRR - Normal S1 and S2 Abdominal: - - Soft, mild RUQ tenderness, NG, NR, BS+ Extremities: No Edema Neurological: - - AAOx2 (self and place), MEDINA Lines/Tubes/Other Access: Clean, Dry and Intact Peripheral IV Nutrition: Taking PO's Result Diagrams: 04/17/16 05:26 04/17/16 05:26 Assess/Plan/Problems-Billing Assessment: Mrs. 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 - Patient Problems (1) Pulmonary embolism Comment: - V/Q scan shows high probability of PE. Suspect EKG changes and this episode of troponin elevation was secondary to PE. - LE doppler showe right DVT. - Continue Lovenox and Warfarin. - Monitor INR. (2) Acalculous cholecystitis Comment: - Clinically, she feels better with less abdominal pain. LFTs and WBC trending down. - Afebrile with stable VS. - Continue Zosyn #7. - HIDA scan showed patent biliary duct. (3) COPD (chronic obstructive pulmonary disease) Comment: - Stable, but patient continues to smoke (she makes her own cigarettes and is not sure how many she smokes a day - she thinks <20 a day). Advised about importance of quitting. - Continue montelukast and bronchodilators. (4) Dementia Comment: - Cognitive impairment is more evident now. - Component of ing with worse confusion during the night - supportive care. (5) CAD (coronary artery disease) Comment: - Suspect her troponin elevation this time was secondary to PE. - She does have non-obstructive CAD, but the risk of bleeding is very high with Aspirin, Clopidogrel, Lovenox and Warfarin. D/w Cardiology (Dr. Shi) - will d /c Clopidogrel and monitor very closely for any signs of bleeding. - Continue Atorvastatin and Metoprolol. (6) DVT prophylaxis Comment: - Lovenox/Warfarin. (7) Full code status Status and Disposition: Inpatient for IV antibiotics and treatment of PE. Will contact family - patient has had progressive decline and may benefit of a Palliative care consult.
[2016-04-18] MEDS: ALPRAZolam TAB* 0.5 MG PO PRN (22:15)
[2016-04-18] MEDS: Montelukast Sodium TAB* 10 MG PO SCH (22:21)
[2016-04-19] MEDS: Enoxaparin(*) 40 MG/0.4 ML SYR SUBCUT SCH ×3 (05:06→20:58)
[2016-04-19] MEDS: Levothyroxine TAB* 25 MCG TAB PO SCH (05:09)
[2016-04-19] MEDS: Piperac/Tazob 3.375 gm in NS* 3.375 GM/100 ML BAG IVPB SCH ×3 (05:09→20:57)
[2016-04-19] MEDS: Tiotropium CAP.INH* CAP.INH/18 MCG (USE ORDER SET !) INH SCH (08:46)
[2016-04-19] MEDS: amLODIPine TAB* 5 MG PO SCH (09:02)
[2016-04-19] MEDS: Fluticasone NASAL SPRAY 50MCG* 16 gm SPRAY BTL BOTH NARES SCH (09:02)
[2016-04-19] MEDS: guaiFENesin ER TAB 600 MG PO PRN ×2 (09:02→18:20)
[2016-04-19] MEDS: Artificial Tears* 15 ML BTL BOTH EYES SCH ×3 (09:02→20:58)
[2016-04-19] MEDS: Metoprolol Tartrate TAB* 25 MG PO SCH ×2 (09:02→20:56)
[2016-04-19] MEDS: Multivitamins/Minerals TAB PO SCH (09:02)
[2016-04-19] MEDS: Folic Acid TAB* 1 MG PO SCH (09:03)
[2016-04-19] MEDS: HYDROcodone/ACETAMIN 5-325 MG* 1 TAB PO PRN ×3 (09:03→21:13)
[2016-04-19] MEDS: CMCS: Pantoprazole TAB (NF) 40 MG TAB PO SCH (09:03)
[2016-04-19] MEDS: Gabapentin CAP(*) 300 MG PO SCH ×3 (09:03→20:55)
[2016-04-19] MEDS: Aspirin EC Low Dose* 81 MG TAB.EC PO SCH (09:03)
[2016-04-19] MEDS: Roflumilast (NF) 500 MCG TAB PO SCH (09:04)
[2016-04-19] MEDS ORDERED: amLODIPine TAB* 5 MG PO ONE (09:28)
[2016-04-19 11:36] LABS: Hematocrit 34 % (35-47); Hemoglobin 11.8 g/dl (12.0-16.0)
[2016-04-19] MEDS: ALPRAZolam TAB* 0.5 MG PO PRN (13:42)
[2016-04-19] MEDS: Warfarin TAB(*) 1 MG PO SCH (17:53)
[2016-04-19] MEDS: Atorvastatin* 80 MG TAB PO SCH (17:53)
[2016-04-19] MEDS: Morphine INJ* 2 MG/ML 1 ML CARPUJECT IV PRN (18:22)
--- NOTE | 2016-04-19 18:41 | PN ---
Subjective Date of Service: 04/19/16 Interval History: HOSPITALIST PROGRESS NOTE Patient seen and examined at bedside. Her mental status is much clearer today. Abdominal pain is less intense, tolerating diet. No further episodes of CP. Major complaint at this time is bruising. Family History: Unchanged from Admission Social History: Unchanged from Admission Past Medical History: Unchanged from Admission Objective Active Medications: Acetaminophen (Tylenol Tab*) 650 mg PO Q4H PRN PRN Reason: FEVER/PAIN Last Admin: 04/15/16 15:21 Dose: 650 mg Acetaminophen/Hydrocodone Bitart ([place] 5-325 Tab*) 1 tab PO Q4H PRN PRN Reason: PAIN Last Admin: 04/19/16 13:46 Dose: 1 tab Albuterol (Ventolin Hfa Inhaler*) 2 puff INH Q6H PRN PRN Reason: SHORTNESS OF BREATH Alprazolam (Xanax Tab*) 0.25 mg PO QID PRN PRN Reason: ANXIETY Last Admin: 04/19/16 13:42 Dose: 0.25 mg Amlodipine Besylate (Norvasc Tab*) 10 mg PO DAILY [facility] Aspirin (Aspirin Ec Low Dose*) 81 mg PO DAILY [facility] Last Admin: 04/19/16 09:03 Dose: 81 mg Atorvastatin Calcium (Lipitor*) 80 mg PO QPM [facility] Last Admin: 04/19/16 17:53 Dose: 80 mg Enoxaparin Sodium (Lovenox(*)) 40 mg SUBCUT Q12H [facility] Fluticasone Propionate (Flonase Nasal [place] 50mcg*) 1 spray BOTH NARES DAILY [facility] Last Admin: 04/19/16 09:02 Dose: 1 spray Folic Acid (Folvite Tab*) 1 mg PO DAILY [facility] Last Admin: 04/19/16 09:03 Dose: 1 mg Gabapentin (Neurontin Cap(*)) 600 mg PO TID [facility] Last Admin: 04/19/16 13:59 Dose: 600 mg Guaifenesin (Mucinex*) 600 mg PO BID PRN PRN Reason: CONGESTION Last Admin: 04/19/16 18:20 Dose: 600 mg Piperacillin Sod/Tazobactam Sod (Zosyn 3.375 Gm In Ns Premix*) 3.375 gm in 100 mls @ 25 mls/hr IVPB Q8H [facility] Last Admin: 04/19/16 13:48 Dose: 25 mls/hr Levothyroxine Sodium (Synthroid Tab*) 25 mcg PO 0600 [facility] Last Admin: 04/19/16 05:09 Dose: 25 mcg Metoprolol Tartrate (Lopressor Tab*) 25 mg PO BID [facility] Last Admin: 04/19/16 09:02 Dose: 25 mg Montelukast Sodium (Singulair Tab*) 10 mg PO BEDTIME [facility] Last Admin: 04/18/16 22:21 Dose: 10 mg Morphine Sulfate (Morphine Inj (Syringe)*) 2 mg IV Q4H PRN PRN Reason: PAIN Last Admin: 04/19/16 18:22 Dose: 2 mg Multivitamins/Minerals (Theragran/Minerals Tab*) 1 tab PO DAILY [facility] Last Admin: 04/19/16 09:02 Dose: 1 tab Ondansetron HCl (Zofran Inj*) 4 mg IV Q4H PRN PRN Reason: NAUSEA/VOMITING Last Admin: 04/12/16 18:33 Dose: 4 mg Pantoprazole Sodium (Protonix Tab (Nf)) 40 mg PO QAM [facility] Last Admin: 04/19/16 09:03 Dose: 40 mg Polyvinyl Alcohol (Polyvinyl Alcohol 1.4% Opth*) 1 drop BOTH EYES TID [facility] Last Admin: 04/19/16 13:59 Dose: 1 drop Roflumilast (Daliresp (Nf)) 500 mcg PO DAILY [facility] Last Admin: 04/19/16 09:04 Dose: Not Given Tiotropium Widen (Spiriva Cap.Inh*) 1 cap INH DAILY [facility] Last Admin: 04/19/16 08:46 Dose: 1 cap.inh Warfarin Sodium (Coumadin Tab(*)) 1 mg PO DAILY@1700 [facility] PRN Reason: Protocol Last Admin: 04/19/16 17:53 Dose: 1 mg Vital Signs 04/19/16 04/19/16 04/19/16 13:46 13:59 15:50 Temperature 98.1 F Pulse Rate 58 Respiratory 14 14 16 Rate Blood Pressure 146/48 (mmHg) O2 Sat by Pulse 96 Oximetry Oxygen Devices in Use Now: None Appearance: Elderly lady sitting up in bed in NAD. Eyes: No Scleral Icterus Ears/Nose/Mouth/Throat: Mucous Membranes Moist Neck: Trachea Midline Respiratory: Symmetrical Chest Expansion and Respiratory Effort, - - BS+ bilaterally with scattered rhonchi Cardiovascular: RRR - Normal S1 and S2 Abdominal: NL Sounds; No Tenderness; No Distention Extremities: No Edema Skin: - - Multiple bruises in different stages of healing in upper extremities and abdome. Neurological: - - AAOx2 (self and place), MEDINA Lines/Tubes/Other Access: Clean, Dry and Intact Peripheral IV Nutrition: Taking PO's Result Diagrams: 04/19/16 11:25 04/17/16 05:26 Assess/Plan/Problems-Billing Assessment: Mrs. 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 - Patient Problems (1) Pulmonary embolism Comment: - V/Q scan shows high probability of PE. Suspect EKG changes and this episode of troponin elevation was secondary to PE. - LE doppler showe right DVT. - Continue Lovenox and Warfarin. - INR is 2 today. Will reduce warfarin dose to 1mg tonight, but we have to continue Lovenox as she has not completed 5 days of therapy yet. (2) Acalculous cholecystitis Comment: - Clinically, she feels better with less abdominal pain. LFTs and WBC trending down. - Afebrile with stable VS. - Continue Zosyn #8. - HIDA scan showed patent biliary duct. (3) COPD (chronic obstructive pulmonary disease) Comment: - Stable, but patient continues to smoke (she makes her own cigarettes and is not sure how many she smokes a day - she thinks <20 a day). Advised about importance of quitting. - Continue montelukast and bronchodilators. (4) Dementia Comment: - Cognitive impairment is more evident now. - Component of sundowning with worse confusion during the night - supportive care. - Mental status is very clear today. (5) CAD (coronary artery disease) Comment: - Suspect her troponin elevation this time was secondary to PE. - She does have non-obstructive CAD, but the risk of bleeding is very high with Aspirin, Clopidogrel, Lovenox and Warfarin. D/w Cardiology (Dr. Shi) - will d /c Clopidogrel and monitor very closely for any signs of bleeding. - Continue Atorvastatin and Metoprolol. (6) DVT prophylaxis Comment: - Lovenox/Warfarin. (7) Full code status Comment: - Patient agreeable with Palliative care consultation. Status and Disposition: Inpatient for IV antibiotics and treatment of PE. Case d/w her PCP (Dr. Burciaga) . Daughter (Nanci) and sister (Reina) called and updated.
[2016-04-19] MEDS: Montelukast Sodium TAB* 10 MG PO SCH (20:56)
--- NOTE | 2016-04-19 21:16 | CONS ---
PALLIATIVE CARE CONSULTATION REPORT: DATE OF CONSULT: 04/19/16 PRIMARY CARE PHYSICIAN: Nancy Burciaga MD REQUESTING PHYSICIAN FOR CONSULTATION: Vandana Santos MD REASON FOR CONSULT: Evaluation of advanced care directives. HISTORY OF PRESENT ILLNESS: This is an 81-year-old female with a past medical history of COPD, still currently smoking, moderate , history of coronary artery disease, status post NSTEMI in January 2016, history of anxiety who presented to the emergency room on 04/12/16 with abdominal pain, found to have acalculous cholecystitis. Also in the setting on her admission, she had an elevated troponin and also with acute kidney injury. The patient with her elevated troponin had an cleaning technician evaluation who felt that this was likely in the setting of demand ischemia and her acute kidney injury as she had a cardiac cath done 2 months ago that showed nonobstructive disease. Certified Executive Chef not recommending further testing at that time in the setting of her acalculous cholecystitis. The patient was also found to have lower extremity DVT and on a V/Q scan high probability for multiple PEs. The patient was started on Coumadin and Lovenox. Her Plavix was discontinued in the setting of significant amount of anticoagulation on board. Dr. Santos consulted palliative care team, discussed advanced directives. The patient's mentation seem to have improved significantly since her hospitalization. When speaking to the patient, she states that her biggest concern is being in pain. She does not want to be in pain. She likes to be home watching TV. She states her goal is to get back home and her daughter lives close by who can help her. She was driving up until recently. She states when she does become eligible, she would like to be a candidate for hospice. The patient denies any pain and currently no shortness of breath. She does state that when she does ambulate or use the bathroom, she does get significant dyspnea on exertion and feels that oxygen helps with her symptoms. PAST MEDICAL HISTORY: 1. Acalculous cholecystitis. 2. 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 3. History of hemolytic anemia, status post splenectomy. 4. History of breast cancer, status post mastectomy and chemotherapy, followed by Dr. Sims. 5. History of coronary artery disease, status post NSTEMI in January 2016. 6. Question of moderate . 7. Irritable bowel syndrome. 8. Anxiety. 9. Chronic pain secondary to osteoarthritis. 10. Hypothyroidism. 11. Hypertension. 12. Hyperlipidemia. 13. GERD. MEDICATIONS: Inpatient medications are: 1. Alprazolam 0.25 mg p.o. q.i.d. p.r.n. 2. Tylenol 650 q.4 hours as needed. 3. Albuterol inhaler 2 puffs every 6 hours. 4. Artificial Tears t.i.d. 5. Aspirin 81 mg daily. 6. Atorvastatin 80 mg in the evening. 7. Lovenox 40 mg subcu q.12. 8. Flonase 1 spray both nares daily. 9. Folic acid 1 mg daily. 10. Gabapentin 600 mg p.o. t.i.d. 11. Hydrochlorothiazide/acetaminophen 1 tab q.4 hours as needed. 12. Levothyroxine 25 mcg daily. 13. Metoprolol 25 mg p.o. b.i.d. 14. Singulair 10 mg at bedtime. 15. Morphine 2 mg every 4 hours as needed for pain. 16. Multivitamin. 17. Zofran 4 mg every 4 hours as needed for nausea. 18. Pantoprazole 40 mg daily. 19. Zosyn 3.375 every 8 hours. 20. Roflumilast 500 mcg daily. 21. Tiotropium daily. 22. Warfarin to be titrated for an INR between 2 and 3. 23. Amlodipine 10 mg daily. 24. Guaifenesin ER 600 mg p.o. b.i.d. as needed. ALLERGIES: SULFA, TETRACYCLINE, CARBAMAZEPINE, IODINE, PHENYTOIN, PREDNISONE, LATEX, OLANZAPINE, VALPROIC ACID, CETIRIZINE. FAMILY HISTORY: Brother had a history of brain tumor. Father had a history of MS. No history of dementia. SOCIAL HISTORY: The patient lives alone. She is independent of her ADLs. Has not been driving recently. She is still smoking. She does make her own cigarette and states that she has been tired of making them because the quality has been poor, but she has a [id number] history. No alcohol use. On admission , she was a full code. Her healthcare proxy is her daughter, Rika. She has one child who lives close by as mentioned. REVIEW OF SYSTEMS: As mentioned in the HPI. PHYSICAL EXAM: Vitals: Temp 98.1, pulse rate 60, respiratory rate 14, oxygen saturation 95% on room air, blood pressure 146/51. General: No acute distress. Resting comfortably. Elderly pale female. HEENT: Neck supple. No lymphadenopathy. Pupils are equal and reactive, anicteric. Head normocephalic. Cardiac: Systolic murmur, 2/6 heard throughout. Regular rate and rhythm. Respiratory: Diminished breath sounds. Prolonged expiratory phase , bilateral rhonchi and wheezing. No increased work of breathing. Abdomen: Soft, nontender, and nondistended. Extremities: The patient with bilateral upper extremity clubbing, no pretibial edema. +1 DPs bilaterally. Neurologic: Alert and oriented x3. No focal neurologic deficits. DIAGNOSTIC STUDIES/LAB DATA: White count 11, hemoglobin 11.8, hematocrit 34, platelets 254, INR is 2.0. Sodium 139, potassium 3.6, chloride 115, bicarb 17, creatinine 0.68. Glucose 95, troponin peaked at 3.99, trending down. Albumin on admission was 3.3, currently 2.2. ASSESSMENT: This an 81-year-old female with past medical history of chronic obstructive pulmonary disease who is still smoking, suspected moderate , history of coronary artery disease with recent non ST-elevation myocardial infarction with additional comorbidities who presents to the emergency room admitted for acalculous cholecystitis now requesting a palliative care consultation for evaluation of advanced care directives. I spoke to the patient at length regarding her end of life decisions. She states she wants to be a do not resuscitate, do not intubate. MOLST form was completed. She also does not want a feeding tube. She spoke about that she would like to stay at home and when she is eligible to qualify for hospice. At this time, she is not a candidate for hospice, but is appropriate for an outpatient palliative care, a followup evaluation and be placed on a PATH program for close followup. I did speak with Dr. Santos regarding the use of oxygen, see if she fits criteria with exertion and at that time and a PT evaluation as the patient is adamant about getting home with help though this does not seem feasible giving her extenuating circumstances. Thank you for this consultation. TIME SPENT: Greater than 60 minutes were spent doing the consultation, more than half that time spent in direct patient contact. CC: Nancy Burciaga MD * [id number]/[facility] #: [id number] MTDD
[2016-04-20] MEDS: Piperac/Tazob 3.375 gm in NS* 3.375 GM/100 ML BAG IVPB SCH ×2 (05:17→14:30)
[2016-04-20] MEDS: Levothyroxine TAB* 25 MCG TAB PO SCH (05:26)
[2016-04-20 07:21] LABS: Hematocrit 30 % (35-47); Hemoglobin 10.2 g/dl (12.0-16.0); Mean Corpuscular HGB Conc 35 g/dl (31-36); Mean Corpuscular Hemoglobin 31 pg (27-31); Mean Corpuscular Volume 89 fL (80-97); Mean Platelet Volume 9 um3 (7.4-10.4); Red Cell Distribution Width 17 % (10.5-15); White Blood Count 17.7 10^3/ul (3.5-10.8)
[2016-04-20 07:22] LABS: BUN/Creatinine Ratio 8.5 (8-20); EGFR African American 125.5 (>60); EGFR Non-African American 97.6 (>60)
[2016-04-20 07:33] LABS: Potassium 2.5 mmol/L (3.5-5.0)
[2016-04-20] MEDS: Tiotropium CAP.INH* CAP.INH/18 MCG (USE ORDER SET !) INH SCH (08:22)
[2016-04-20] MEDS: KCL 10 MEQ/50 ML IVPREMIX* 10 MEQ/50 ML BAG IV SCH ×5 (09:55→21:26)
[2016-04-20] MEDS: Enoxaparin(*) 40 MG/0.4 ML SYR SUBCUT SCH ×2 (09:59→21:32)
[2016-04-20] MEDS: Artificial Tears* 15 ML BTL BOTH EYES SCH ×3 (10:02→21:27)
[2016-04-20] MEDS: Gabapentin CAP(*) 300 MG PO SCH ×3 (10:05→21:27)
[2016-04-20] MEDS: Aspirin EC Low Dose* 81 MG TAB.EC PO SCH (10:05)
[2016-04-20] MEDS: ALPRAZolam TAB* 0.5 MG PO PRN ×2 (10:06→21:55)
[2016-04-20] MEDS: Folic Acid TAB* 1 MG PO SCH (10:08)
[2016-04-20] MEDS: amLODIPine TAB* 5 MG PO SCH (10:08)
[2016-04-20] MEDS: Metoprolol Tartrate TAB* 25 MG PO SCH ×2 (10:10→21:29)
[2016-04-20] MEDS: HYDROcodone/ACETAMIN 5-325 MG* 1 TAB PO PRN ×4 (10:10→21:56)
[2016-04-20] MEDS: Potassium Chlor TAB* 20 MEQ TAB.ER PO SCH ×4 (10:15→17:58)
[2016-04-20] MEDS: Roflumilast (NF) 500 MCG TAB PO SCH (10:16)
[2016-04-20] MEDS ORDERED: KCL 10 MEQ/50 ML IVPREMIX* 10 MEQ/50 ML BAG ONE ×2 (13:10→21:18)
[2016-04-20] MEDS: Fluticasone NASAL SPRAY 50MCG* 16 gm SPRAY BTL BOTH NARES SCH (13:15)
[2016-04-20] MEDS: CMCS: Pantoprazole TAB (NF) 40 MG TAB PO SCH (13:15)
[2016-04-20] MEDS: Multivitamins/Minerals TAB PO SCH (13:16)
[2016-04-20 13:58] LABS: BUN/Creatinine Ratio 9.5 (8-20); Calcium 8.2 mg/dL (8.6-10.3); EGFR African American 116.3 (>60); EGFR Non-African American 90.5 (>60)
[2016-04-20] MEDS: Morphine INJ* 2 MG/ML 1 ML CARPUJECT IV PRN (15:59)
--- NOTE | 2016-04-20 17:02 | PN ---
Subjective Date of Service: 04/20/16 Interval History: HOSPITALIST PROGRESS NOTE Patient seen and examined at bedside. She feels a little better today. Abdominal pain is more controlled, tolerating diet well, no N/V. Family History: Unchanged from Admission Social History: Unchanged from Admission Past Medical History: Unchanged from Admission Objective Active Medications: Acetaminophen (Tylenol Tab*) 650 mg PO Q4H PRN PRN Reason: FEVER/PAIN Last Admin: 04/15/16 15:21 Dose: 650 mg Acetaminophen/Hydrocodone Bitart ([place] 5-325 Tab*) 1 tab PO Q4H PRN PRN Reason: PAIN Last Admin: 04/20/16 14:02 Dose: 1 tab Albuterol (Ventolin Hfa Inhaler*) 2 puff INH Q6H PRN PRN Reason: SHORTNESS OF BREATH Alprazolam (Xanax Tab*) 0.25 mg PO QID PRN PRN Reason: ANXIETY Last Admin: 04/20/16 10:06 Dose: 0.25 mg Amlodipine Besylate (Norvasc Tab*) 10 mg PO DAILY [facility] Last Admin: 04/20/16 10:08 Dose: 10 mg Aspirin (Aspirin Ec Low Dose*) 81 mg PO DAILY [facility] Last Admin: 04/20/16 10:05 Dose: 81 mg Atorvastatin Calcium (Lipitor*) 80 mg PO QPM [facility] Last Admin: 04/19/16 17:53 Dose: 80 mg Enoxaparin Sodium (Lovenox(*)) 40 mg SUBCUT Q12H [facility] Last Admin: 04/20/16 09:59 Dose: 40 mg Fluticasone Propionate (Flonase Nasal [place] 50mcg*) 1 spray BOTH NARES DAILY [facility] Last Admin: 04/20/16 13:15 Dose: 1 spray Folic Acid (Folvite Tab*) 1 mg PO DAILY [facility] Last Admin: 04/20/16 10:08 Dose: 1 mg Gabapentin (Neurontin Cap(*)) 600 mg PO TID [facility] Last Admin: 04/20/16 13:17 Dose: 600 mg Guaifenesin (Mucinex*) 600 mg PO BID PRN PRN Reason: CONGESTION Last Admin: 04/19/16 18:20 Dose: 600 mg Piperacillin Sod/Tazobactam Sod (Zosyn 3.375 Gm In Ns Premix*) 3.375 gm in 100 mls @ 25 mls/hr IVPB Q8H [facility] Last Admin: 04/20/16 14:30 Dose: 25 mls/hr Potassium Chloride (Potassium Chloride 10 Meq/50 Ml Ivpremix*) 10 meq in 50 mls @ 50 mls/hr IV Q1H [facility] Stop: 04/20/16 17:59 Levothyroxine Sodium (Synthroid Tab*) 25 mcg PO 0600 [facility] Last Admin: 04/20/16 05:26 Dose: 25 mcg Metoprolol Tartrate (Lopressor Tab*) 25 mg PO BID [facility] Last Admin: 04/20/16 10:10 Dose: 25 mg Montelukast Sodium (Singulair Tab*) 10 mg PO BEDTIME [facility] Last Admin: 04/19/16 20:56 Dose: 10 mg Multivitamins/Minerals (Theragran/Minerals Tab*) 1 tab PO DAILY [facility] Last Admin: 04/20/16 13:16 Dose: 1 tab Ondansetron HCl (Zofran Inj*) 4 mg IV Q4H PRN PRN Reason: NAUSEA/VOMITING Last Admin: 04/12/16 18:33 Dose: 4 mg Pantoprazole Sodium (Protonix Tab (Nf)) 40 mg PO QAM [facility] Last Admin: 04/20/16 13:15 Dose: 40 mg Polyvinyl Alcohol (Polyvinyl Alcohol 1.4% Opth*) 1 drop BOTH EYES TID [facility] Last Admin: 04/20/16 14:03 Dose: 1 drop Potassium Chloride (Klor Con Er Tab*) 40 meq PO Q4H [facility] Stop: 04/20/16 19:01 Last Admin: 04/20/16 16:11 Dose: 40 meq Roflumilast (Daliresp (Nf)) 500 mcg PO DAILY [facility] Last Admin: 04/20/16 10:16 Dose: Not Given Tiotropium [place] (Spiriva Cap.Inh*) 1 cap INH DAILY [facility] Last Admin: 04/20/16 08:22 Dose: 1 cap.inh Warfarin Sodium (Coumadin Tab(*)) 1 mg PO DAILY@1700 [facility] PRN Reason: Protocol Last Admin: 04/19/16 17:53 Dose: 1 mg Vital Signs 04/20/16 04/20/16 04/20/16 04:03 08:04 08:23 Temperature 98.0 F 98.1 F Pulse Rate 68 71 74 Respiratory 18 16 14 Rate Blood Pressure 134/48 139/48 (mmHg) O2 Sat by Pulse 86 100 98 Oximetry Oxygen Devices in Use Now: None Appearance: Elderly lady lying in bed in NAD. Eyes: No Scleral Icterus Ears/Nose/Mouth/Throat: Mucous Membranes Moist Neck: Trachea Midline Respiratory: Symmetrical Chest Expansion and Respiratory Effort, - - BS+ bilaterally coarse with no added sounds Cardiovascular: RRR - Normal S1 and S2 Abdominal: - - Soft, mild diffuse tenderness, NG, NR, BS Skin: - - Multiple ecchymoses in different stages of healing Neurological: Alert and Oriented x 3, NL Muscle Strength and Tone Lines/Tubes/Other Access: Clean, Dry and Intact Peripheral IV Nutrition: Taking PO's Result Diagrams: 04/20/16 06:32 04/20/16 13:37 Assess/Plan/Problems-Billing Assessment: Mrs. 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 - Patient Problems (1) Pulmonary embolism Comment: - V/Q scan shows high probability of PE. Suspect EKG changes and this episode of troponin elevation was secondary to PE. - LE doppler showe right DVT. - Continue Lovenox and Warfarin. - INR is 1.6 today. Continue warfarin 1mg. (2) Acalculous cholecystitis Comment: - Clinically, she feels better with less abdominal pain. LFTs and WBC trending down. - Afebrile with stable VS. - Continue Zosyn #9. - HIDA scan showed patent biliary duct. (3) COPD (chronic obstructive pulmonary disease) Comment: - Stable, but patient continues to smoke (she makes her own cigarettes and is not sure how many she smokes a day - she thinks <20 a day). Advised about importance of quitting. - Continue montelukast and bronchodilators. (4) Dementia Comment: - Cognitive impairment is more evident now. - Component of sundowning with worse confusion during the night - supportive care. - Mental status is very clear today. (5) CAD (coronary artery disease) Comment: - Suspect her troponin elevation this time was secondary to PE. - She does have non-obstructive CAD, but the risk of bleeding is very high with Aspirin, Clopidogrel, Lovenox and Warfarin. D/w Cardiology (Dr. Shi) - will d /c Clopidogrel and monitor very closely for any signs of bleeding. - Continue Atorvastatin and Metoprolol. (6) DVT prophylaxis Comment: - Lovenox/Warfarin. (7) DNR (do not resuscitate) Status and Disposition: Inpatient for IV antibiotics and treatment of PE. Anticipate d/c to [facility] in AM.
[2016-04-20] MEDS: Atorvastatin* 80 MG TAB PO SCH (17:57)
[2016-04-20] MEDS: Warfarin TAB(*) 1 MG PO SCH (17:58)
[2016-04-20] MEDS: Montelukast Sodium TAB* 10 MG PO SCH (21:31)
[2016-04-20] MEDS ORDERED: Morphine INJ* 2 MG/ML 1 ML CARPUJECT IV PRN (23:58)
[2016-04-21] MEDS: Piperac/Tazob 3.375 gm in NS* 3.375 GM/100 ML BAG IVPB SCH ×3 (00:01→12:00)
[2016-04-21] MEDS ORDERED: KCL 10 MEQ/50 ML IVPREMIX* 10 MEQ/50 ML BAG ONE (04:08)
[2016-04-21] MEDS: KCL 10 MEQ/50 ML IVPREMIX* 10 MEQ/50 ML BAG IV SCH (04:12)
[2016-04-21] MEDS: Levothyroxine TAB* 25 MCG TAB PO SCH (06:02)
[2016-04-21] MEDS: Tiotropium CAP.INH* CAP.INH/18 MCG (USE ORDER SET !) INH SCH (08:09)
[2016-04-21] MEDS: Roflumilast (NF) 500 MCG TAB PO SCH (08:54)
[2016-04-21 09:00] LABS: Hematocrit 34 % (35-47); Hemoglobin 11.6 g/dl (12.0-16.0); Mean Corpuscular HGB Conc 34 g/dl (31-36); Mean Corpuscular Hemoglobin 31 pg (27-31); Mean Corpuscular Volume 91 fL (80-97); Mean Platelet Volume 9 um3 (7.4-10.4); Red Blood Count 3.73 10^6/ul (4.0-5.4); Red Cell Distribution Width 18 % (10.5-15); White Blood Count 18.5 10^3/ul (3.5-10.8)
[2016-04-21 09:01] LABS: Add Diff/Slide Review? Slide Review Added; Comments Flag Yes
[2016-04-21] MEDS: HYDROcodone/ACETAMIN 5-325 MG* 1 TAB PO PRN (09:01)
[2016-04-21] MEDS: amLODIPine TAB* 5 MG PO SCH (09:03)
[2016-04-21] MEDS: Aspirin EC Low Dose* 81 MG TAB.EC PO SCH (09:03)
[2016-04-21] MEDS: Multivitamins/Minerals TAB PO SCH ×2 (09:03→09:06)
[2016-04-21] MEDS: Gabapentin CAP(*) 300 MG PO SCH ×2 (09:03→12:40)
[2016-04-21] MEDS: CMCS: Pantoprazole TAB (NF) 40 MG TAB PO SCH (09:03)
[2016-04-21] MEDS: Fluticasone NASAL SPRAY 50MCG* 16 gm SPRAY BTL BOTH NARES SCH (09:03)
[2016-04-21] MEDS: Folic Acid TAB* 1 MG PO SCH (09:03)
[2016-04-21] MEDS: Artificial Tears* 15 ML BTL BOTH EYES SCH ×2 (09:03→12:39)
[2016-04-21] MEDS: Metoprolol Tartrate TAB* 25 MG PO SCH (09:03)
[2016-04-21 09:52] LABS: BUN/Creatinine Ratio 9.1 (8-20); Calcium 8.8 mg/dL (8.6-10.3); EGFR African American 110.3 (>60); EGFR Non-African American 85.7 (>60); Potassium 5.5 mmol/L (3.5-5.0)
[2016-04-21] MEDS: Enoxaparin(*) 40 MG/0.4 ML SYR SUBCUT SCH (09:58)
[2016-04-21 11:07] VITALS: BP 151/50
[2016-04-21] MEDS ORDERED: CMC:Roflumilast (NF) 500 MCG TAB PO SCH (12:00)
--- NOTE | 2016-04-21 12:03 | DS ---
DATE OF ADMISSION: 04/12/2016. DATE OF DISCHARGE: 04/21/2016. DISCHARGE DIAGNOSES: 1. Severe sepsis. 2. Acute kidney injury. 3. Acalculous cholecystitis. 4. Pulmonary embolism. 5. Right lower extremity DVT. 6. Acute hypoxemic respiratory failure. 7. COPD. 8. Possible mild dementia with delirium while in the hospital/. 9. Chronic leukocytosis, likely associated with her splenectomy. 10. Hypokalemia. 11. Troponin elevation, likely secondary to pulmonary embolism. SECONDARY DIAGNOSES: 1. COPD. 2. Hypertension. 3. Hyperlipidemia. 4. Coronary artery disease, status post recent cath on January 2016 showing 55 percent disease in the LAD, 40 to 45 percent circumflex, 65 to 70 percent RCA. 5. Hemolytic anemia, status post splenectomy in 2014. 6. Hypothyroidism. 7. Remote history of right nephrectomy due to hydronephrosis. 8. Breast cancer, status post mastectomy and chemotherapy. 9. Irritable bowel syndrome. 10. Anxiety. 11. Chronic pain. MEDICATIONS: 1. Acetaminophen 650 mg p.o. q.4 hours prn pain or fever. 2. Albuterol HFA two puffs inhaled every 6 to 4 hours as needed for shortness of breath. 3. Alprazolam 0.25 mg p.o. q.i.d. as needed for anxiety. 4. Amlodipine 10 mg p.o. daily. 5. Augmentin 875 mg p.o. b.i.d. for 5 more days. 6. Aspirin 81 mg p.o. daily. 7. Atorvastatin 80 mg p.o. in the evening. 8. Vitamin D3 50,000 units p.o. monthly. 9. Vitamin B12 500 mcg p.o. daily. 10. Dicyclomine 10 mg p.o. t.i.d. 11. Docusate 100 mg p.o. q.a.m. 12. Doxepin 12 mg p.o. at bedtime. 13. Lovenox 40 mg subcutaneously q.12 hours. 14. Fexofenadine 180 mg p.o. daily. 15. Fluticasone nasal spray 50 mcg one to two sprays to both nares daily. 16. Folic acid 1 mg p.o. daily. 17. Gabapentin 600 mg p.o. t.i.d. 18. Guaifenesin 600 mg p.o. b.i.d. as needed for congestion. 19. Hydrocodone/acetaminophen 5/325 mg one tablet p.o. q.6 hours as needed for pain. 20. Levothyroxine 25 mcg p.o. q.a.m. 21. Metoprolol tartrate 25 mg p.o. b.i.d. 22. Montelukast 10 mg p.o. at bedtime. 23. Multivitamin one tablet p.o. daily. 24. Omeprazole 20 mg p.o. q.a.m. 25. MiraLax 17 gm p.o. daily as needed for constipation. 26. Probiotic one capsule p.o. daily. 27. Systane 0.6 percent one drop to both eyes 3 to 4 times a day. 28. Roflumilast 500 mcg p.o. daily. 29. Senna two tablets p.o. at bedtime as needed for constipation. 30. Spiriva one capsule inhaled daily. 31. Warfarin 1 mg p.o. daily. 32. Oxygen 2 liters per minute via nasal cannula. HOSPITAL COURSE: Ms. Walker is an 81-year-old lady with a past medical history as stated above who presented to the emergency room with complaints of abdominal pain, nausea, vomiting, and diarrhea. For more details about her presentation, I refer you to her history and physical. Although the patient does have chronic abdominal pain with her irritable bowel syndrome, this pain was different from her usual in the right upper quadrant. In the emergency room, the patient had a CT of the abdomen and pelvis that showed diffuse gallbladder wall thickening with appearance suggestive of cholecystitis, including acalculous cholecystitis. A gallbladder ultrasound was suspicious for acute acalculous cholecystitis. The patient was admitted for further management and started on IV antibiotics ( Zosyn). Her abdominal pain persisted and her white cell count trended up, but of note is the fact the patient has had chronic leukocytosis, especially since her splenectomy. She was seen in consultation by General Surgery (Dr. Mcginnis) and the patient was felt to be a poor surgical candidate for a number of reasons , including her coronary artery disease, COPD, ongoing smoking history, as well as anticoagulation. His recommendation was for a HIDA scan and the impression at the time was the patient could need a percutaneous cholecystostomy and/or a cholecystectomy. A HIDA scan was performed and it showed that the cystic duct was patent. The patient started to have improvement of her abdominal pain. She was able to tolerate diet and decision was made to continue only management with antibiotics. She has completed ten days of Zosyn and will receive five more days of Augmentin to complete two weeks of treatment. She is at risk for recurrence and I believe if she starts to have the same abdominal pain, she will need to return to the hospital and will probably need at least percutaneous cholecystostomy as I think she would be a very poor candidate for a cholecystectomy. While in the hospital, the patient also had complaints of chest pain and her initial troponin was elevated at 1.26 and it peaked at 3.99. She was initially seen in consultation by Cardiology (Dr. Shi) and his impression was that initially her abnormal troponin was not associated with chest discomfort or EKG changes and it occurred in the setting of acute renal insufficiency. Two months ago, the patient had a cardiac cath for abnormal troponins with nonobstructive disease and at that point she did not have an acute coronary syndrome, but likely again a nonischemic troponin elevation. He felt there was no reason to believe that her coronary disease had changed. The patient was already on high dose statin, dual antiplatelet therapy, as well as on a beta marcela, which he felt was reasonable. She likely has diastolic heart failure accounting for part of her dyspnea, although her COPD certainly contributing. From a cardiac perspective, he did not recommend any further testing or any change in her therapy initially. The patient did have an episode of chest pain with EKG changes later on. A transthoracic echocardiogram showed global left ventricular wall motion and contractility within normal limits, ejection fraction of 60 to 65 percent, the left ventricular chamber size is normal. The aortic valve structure was not well- visualized, but there was concern for aortic stenosis. There was some suggestion of moderate to critical aortic stenosis, but this may be underestimated due to technical issues. There was evidence of mild pulmonary hypertension and this was similar to the findings on January 2016. It was felt that the patient could be considered for a transesophageal echocardiogram to better define her degree of aortic stenosis, but at this point she was felt not to be stable for this procedure and this can be reconsidered as an outpatient later on. With her episode of chest pain, EKG changes, and troponinemia, the possibility of PE was thought. As the patient has only one kidney and was in acute kidney injury when she was admitted, decision was made to pursue a VQ scan that showed multiple areas of perfusion defect without corresponding ventilation defects suggestive of multiple segmental and larger ventilation and perfusion mismatches. This is a high probability scan for pulmonary embolus. The patient had a lower extremity Doppler performed that showed one of the paired peroneal veins in the right calf demonstrates nonocclusive venous thrombosis. After reviewing risks and benefits with the patient, decision was made to start anticoagulation with Lovenox and Warfarin, but at that point the patient was already receiving dual antiplatelet therapy with aspirin and Clopidogrel for her coronary artery disease. After discussion with Dr. Shi, decision was made to stop her Clopidogrel as she is at a very high risk for bleeding. So, the plan at this point is to continue medical management for her CAD with aspirin, statin and beta marcela, and to treat her pulmonary embolism and DVT with Lovenox and Warfarin until her INR is greater than 2 and at that point her Lovenox will be discontinued. The patient's H and H was monitored while in the hospital and it has remained stable. Although she repeatedly described diarrhea with black stool and her stool for occult blood was positive, we have watched her H and H closely and it has remained stable. The patient was seen in consultation by Gastroenterology (Dr. Jensen) and he agreed with medical management of her acute cholecystitis, and he agrees she is at high risk for bleeding, but at this point anticoagulation is necessary. She will need close monitoring of her INR and H and H as an outpatient. The patient has had multiple admissions over the past three months with possible CT, pneumonia, and pyelonephritis. The patient states that she is not interested in aggressive measures and she was seen in consultation by Palliative Care consult. The patient now is a do not resuscitate. At this time she was felt not to be a candidate for hospice, but was felt to be appropriate for outpatient palliative care and she will placed on a path program for close follow-up. The patient has known COPD. She still smokes at home, now has developed pulmonary embolism and has required supplemental oxygen intermittently to keep her oxygen saturation greater than 90 percent. The patient was found to be deconditioned and was offered a bed at [facility] for rehab. Although the patient has no formal diagnosis of dementia, she has had progressive decline of her mental status since I met her in 2014 for her splenectomy. I believe part of it was delirium while in the hospital, but this will also need to be monitored as an outpatient. The patient is medically stable for discharge at this time. PHYSICAL EXAMINATION: General: The patient is a pleasant, elderly lady, sitting up in a chair in no acute distress. Vital signs: Temperature 97.9, heart rate 66, respiratory rate 18, oxygen saturation 98 percent on 2 liters nasal cannula, blood pressure 135/63. CVS: Normal S1, S2. Regular rate and rhythm with a systolic murmur. Chest: Breath sounds present bilaterally with scattered rhonchi. Abdomen: Soft with mild diffuse tenderness, but no guarding , no rebound. Bowel sounds are present. Extremities: No edema. Neuro: She is alert and oriented times three, able to move all four extremities. Skin: There are multiple ecchymosis in different stages of healing. DIET: Soft, low fat diet. ACTIVITIES: As tolerated. DISPOSITION: To [facility]. STATUS WHILE IN THE HOSPITAL: Inpatient. Please keep in mind this is a summarized version of this patient's long and complex hospital stay. If you need more information, please feel free to call me at or please obtain the full medical records. Her primary care provider, Dr. Burciaga, was called multiple times and we have discussed her case. Approximately 50 minutes were spent to complete this discharge. CC: Dr. Nancy Burciaga; [facility] * [id number]/[facility] #: [id number] MTDD
--- NOTE | 2016-04-21 23:13 | CONS ---
CONSULTATION REPORT: DATE OF CONSULT: 04/16/16 INDICATION: Abdominal pain. NARRATIVE: Ms. Walker is a pleasant 81-year-old female with a history of COPD, aortic stenosis, coronary artery disease, irritable bowel, anxiety, dementia, breast cancer, anemia and chronic pain who comes into the emergency room with pain, nausea, vomiting, and diarrhea. She states this has been going on for the past week. She has had nonbloody diarrhea. She denies any fevers at home. In the emergency room, she was found to have elevated LFTs and an ultrasound was consistent with acalculous cholecystitis. The patient was admitted to the hospital. She was seen by Cardiology and Surgery. She was deemed too high of a surgical risk at this point. She was started on antibiotics. She is doing slightly better. She is still complaining of right upper quadrant pain. PAST MEDICAL HISTORY: Please see the HPI. Hypertension, hyperlipidemia, hypothyroid and GERD. PAST SURGICAL HISTORY: Includes splenectomy, hysterectomy, appendectomy, ankle repair, mastectomy. MEDICATIONS: On admission include: 1. Senna. 2. MiraLAX. 3. Omeprazole. 4. Singulair. 5. Losartan. 6. Levothyroxine. 7. Levbid. 8. Vicodin. 9. Gabapentin. 10. Fluticasone. 11. Chaya. 12. Doxepin. 13. Diltiazem. 14. Bentyl. 15. Plavix. 16. Fioricet. 17. Atorvastatin. 18. Aspirin. 19. Alprazolam. FAMILY HISTORY: Positive for dementia and brain tumor. SOCIAL HISTORY: Continue to smoke 1 pack of tobacco per day, I counseled her against this, no alcohol use. REVIEW OF SYSTEMS: 12 systems were reviewed, other than that mentioned in the HPI were unremarkable. PHYSICAL EXAM: Vital Signs: Temperature is 97.9, blood pressure is 145/52. General: Well-appearing elderly female, in no apparent distress, alert, oriented, pleasant, and fluent. HEENT: Mucous membranes are moist without lesions, ulcers or exudate. Neck: Supple. Trachea is midline. Head: Normocephalic, atraumatic. Heart: Regular rate and rhythm. Lungs: Clear to auscultation. Abdomen: Mildly obese, positive bowel sounds, soft, right upper quadrant tenderness. No rebound, no guarding, no masses were felt. DIAGNOSTIC STUDIES/LAB DATA: Of note, white count is 13.2, hemoglobin is 9.1, platelets of 330. Her troponin is 0.37, alk phos 260, AST is 51, ALT is 43. She has a HIDA scan, which shows no ductal occlusion with a patent cystic duct and a gallbladder ultrasound, which revealed acalculous cholecystitis. ASSESSMENT AND PLAN: This is a pleasant 81-year-old female with acalculous cholecystitis who is at a very high surgical risk. At this point, I agree with the conservative treatment including antibiotics and fluids. I will continue to follow along very closely. [id number]/[facility] #: [id number] [facility] HOSPITALJaleesa
== END 2016-04-21 14:20 | disposition home health service (06) | DRG 871 ==
LOC: ED 12:54 → MEDTELE 17:43 → ICU 19:38 → MEDTELE 04-13 15:22 → MED 04-19 12:25
PROVIDERS: ADMIT Internal Medicine; ATTEND Internal Medicine
DX: A41.9 Sepsis, unspecified organism (principal); J96.01 Acute respiratory failure with hypoxia; I26.99 Other pulmonary embolism without acute cor pulmonale; N17.9 Acute kidney failure, unspecified; I11.0 Hypertensive heart disease with heart failure; I50.30 Unspecified diastolic (congestive) heart failure; I27.2 Other secondary pulmonary hypertension; D58.9 Hereditary hemolytic anemia, unspecified; F05 Delirium due to known physiological condition; K81.0 Acute cholecystitis; I82.4Z1 Acute embolism and thrombosis of unspecified deep veins of right distal lower extremity; R65.20 Severe sepsis without septic shock; J44.9 Chronic obstructive pulmonary disease, unspecified; K58.9 Irritable bowel syndrome, unspecified; F41.9 Anxiety disorder, unspecified; M19.90 Unspecified osteoarthritis, unspecified site; G89.29 Other chronic pain; I35.0 Nonrheumatic aortic (valve) stenosis; I25.10 Atherosclerotic heart disease of native coronary artery without angina pectoris; E03.9 Hypothyroidism, unspecified; E78.5 Hyperlipidemia, unspecified; K21.9 Gastro-esophageal reflux disease without esophagitis; F17.210 Nicotine dependence, cigarettes, uncomplicated; R79.89 Other specified abnormal findings of blood chemistry; E86.1 Hypovolemia; E87.5 Hyperkalemia; J45.909 Unspecified asthma, uncomplicated; M81.0 Age-related osteoporosis without current pathological fracture; H26.9 Unspecified cataract; E87.6 Hypokalemia; F03.90 Unspecified dementia, unspecified severity, without behavioral disturbance, psychotic disturbance, mood disturbance, and anxiety; D72.829 Elevated white blood cell count, unspecified; Z66 Do not resuscitate; I25.2 Old myocardial infarction; Z85.3 Personal history of malignant neoplasm of breast; Z87.440 Personal history of urinary (tract) infections; Z90.81 Acquired absence of spleen; Z92.21 Personal history of antineoplastic chemotherapy; Z90.12 Acquired absence of left breast and nipple; Z90.710 Acquired absence of both cervix and uterus; Z82.0 Family history of epilepsy and other diseases of the nervous system; Z83.2 Family history of diseases of the blood and blood-forming organs and certain disorders involving the immune mechanism; Z80.8 Family history of malignant neoplasm of other organs or systems; Z88.2 Allergy status to sulfonamides; Z88.1 Allergy status to other antibiotic agents; Z87.01 Personal history of pneumonia (recurrent); Z87.442 Personal history of urinary calculi; Z82.5 Family history of asthma and other chronic lower respiratory diseases; Z90.5 Acquired absence of kidney; Z79.82 Long term (current) use of aspirin; Z79.01 Long term (current) use of anticoagulants
CPT/HCPCS: 36415; 71020; 74176; 76705; 78226; 78582; 80048; 80053; 81003; 82272; 83605; 83690; 83735; 83880; 84484; 85014; 85018; 85025; 85610; 85730; 86140; 87641; 93005; 93306; 93970; 94640; 94760; 99284; 99406; A9270-GY; A9537; A9540; A9558; J1644; J1650; J2270; J2405; J2543; J3480

== ENCOUNTER 2017-04-18 05:57 | Inpatient (IN) | payer MEDICARE, MEDICAID ==
[2017-04-18 08:21] LABS: ABS Basophils 0.2 10^3/ul (0-0.2); ABS Eosinophils 0.1 10^3/ul (0-0.6); ABS Lymphocytes 2.2 10^3/ul (1.0-4.8); ABS Monocytes 1.1 10^3/ul (0-0.8); ABS Neutrophils 12.4 10^3/ul (1.5-7.7); ABS Nucleated RBC 0 10^3/ul; Eosinophil % 0.9 % (0-6); Hematocrit 37 % (35-47); Hemoglobin 12.8 g/dl (12.0-16.0); Lymphocyte % 13.6 % (25-47); Mean Corpuscular HGB Conc 34 g/dl (31-36); Mean Corpuscular Hemoglobin 32 pg (27-31); Mean Corpuscular Volume 92 fL (80-97); Mean Platelet Volume 8 um3 (7.4-10.4); Nucleated Red Blood Cells % 0.1; Platelet Count 300 10^3/ul (150-450); Red Blood Count 4.08 10^6/ul (4.0-5.4); Red Cell Distribution Width 16 % (10.5-15); White Blood Count 16.1 10^3/ul (3.5-10.8)
[2017-04-18 08:39] LABS: EGFR Non-African American 69.5 (>60)
[2017-04-18 08:42] LABS: INR 0.94 (0.77-1.02)
--- NOTE | 2017-04-18 09:13 | RAD ---
HISTORY: Cough and congestion, shortness of breath COMPARISONS: April 16, 2016 VIEWS: 2: Frontal and lateral views of the chest. FINDINGS: CARDIOMEDIASTINAL SILHOUETTE: The cardiomediastinal silhouette is normal. ALEXEI: The alexei are normal. PLEURA: There is blunting of costophrenic angles bilaterally. LUNG PARENCHYMA: There is hyperinflation with flattening of the diaphragm and expansion of the AP diameter of the chest. There is a diffuse coarse pattern of reticular opacification. ABDOMEN: The upper abdomen is clear. There is no subphrenic gas. BONES AND SOFT TISSUES: Surgical clips are noted in the left axilla. OTHER: None. IMPRESSION: 1. COPD. 2. DIFFUSE COARSE INTERSTITIAL OPACIFICATION WHICH MAY REFLECT CHRONIC INTERSTITIAL DISEASE OR MILD PULMONARY INTERSTITIAL EDEMA. 3. SMALL BILATERAL PLEURAL EFFUSIONS.
[2017-04-18 09:34] LABS: Urine Appearance Clear; Urine Blood Negative (Negative); Urine Color Straw; Urine Ketones Negative (Negative); Urine Protein Negative (Negative); Urine Specific Gravity 1.003 (1.010-1.030); Urine Urobilinogen Negative (Negative)
[2017-04-18] MEDS ORDERED: Furosemide TAB* 20 MG PO ONE (09:46)
[2017-04-18] MEDS ORDERED: Nitroglycerin TAB 0.4 MG* 0.4 MG TAB SL ONE (10:47)
[2017-04-18] MEDS ORDERED: Butalb/Acetamin/Caff TAB* 1 TAB PO PRN (12:28)
[2017-04-18] MEDS ORDERED: guaiFENesin ER TAB 600 MG PO PRN (12:28)
[2017-04-18] MEDS ORDERED: busPIRone TAB* 5 MG PO PRN (12:28)
[2017-04-18] MEDS ORDERED: Albuterol HFA INHALER* 8 gm MDI INH PRN (12:28)
[2017-04-18] MEDS ORDERED: Polyethylene Glycol 3350* 17 GM PACKET PO PRN (12:28)
[2017-04-18] MEDS ORDERED: ALPRAZolam TAB* 0.25 MG PO PRN (12:36)
[2017-04-18] MEDS ORDERED: Albuterol/Ipratropium NEB.SOL* Albuterol 2.5 MG/Ipratropium 0.5 MG 3 ML INH PRN (12:37)
[2017-04-18] MEDS ORDERED: Furosemide IV* 10 MG/ML 2 ML VIAL (20 MG) IV ONE (12:40)
[2017-04-18] MEDS: Dicyclomine CAP* 10 MG PO SCH ×2 (14:09→21:52)
[2017-04-18] MEDS: Gabapentin CAP(*) 300 MG PO SCH ×2 (14:09→21:48)
[2017-04-18] MEDS: Azithromycin IV(*) 500 MG in NS 0.9% 250 ML* 250 ML IVPB SCH (14:10)
[2017-04-18] MEDS: Heparin VIAL(*) 5000 UNITS/ML VIAL (FIVE THOUSAND) SUBCUT SCH ×2 (14:10→21:54)
[2017-04-18] MEDS: HYDROcodone/ACETAMIN 5-325 MG* 1 TAB PO PRN ×2 (14:18→22:06)
[2017-04-18] MEDS ORDERED: Perflutren Lipid Microsphere* 3 ML VIAL ONE (14:45)
[2017-04-18 14:58] LABS: INR 0.98 (0.77-1.02)
--- NOTE | 2017-04-18 17:01 | ECHO ---
Patient: HUGH FONSECA [facility] Rec#: [id number] : 1935 Date: 04/18/2017 Age: 82y Height: 154.94 cm / 61.0 in Weight: 48.99 kg / 108.0 lbs Sex: F BSA: 1.45 Room#: [facility] Admit Date#: 04/18/2017 Type: Inpatient Referring: Addis Martel Reading: Robert Meeks MD Milieu Therapist: Kristan Baez RDCS CC: Nancy Burciaga MD Transthoracic Echocardiogram Indication: Aortic Stenosis BP: 149/55 HR: 90 Rhythm: NSR Findings History: Nonobstructive CAD,COPD,anemia,murmur. Technical Comments: The study is technically limited due to the patient's history of COPD. Completed at 1530. Defin ity was used to enhance images. Left Ventricle: The left ventricular chamber size is decreased. Global left ventricular wall motion and contractility are within normal limits. There is normal left ventricular systolic function. The estimated ejection fraction is 60-65%. Normal left ventricular diastolic filling is observed. Left Atrium: The left atrium is normal in size. Right Ventricle: The right ventricular cavity size is normal. The right ventricular global systolic function is normal. Right Atrium: The right atrium is not well visualized. Aortic Valve: The aortic valve is trileaflet. The aortic valve leaflets are moderately thickened. Systolic excursion of the aortic valve cusps is reduced. There is no evidence of aortic regurgitation. There is moderate aortic stenosis. The highest aortic valve velocity was obtained with the standard probe from the A5C view. Mitral Valve: There is mitral annular calcification. There is moderate mitral regurgitation. There is no evidence of mitral stenosis. Tricuspid Valve: The tricuspid valve leaflets are normal. There is moderate tricuspid regurgitation. There is evidence of moderate pulmonary hypertension. There is no tricuspid stenosis. Pulmonic Valve: The pulmonic valve appears normal. There is mild pulmonic regurgitation. There is no pulmonic stenosis. Pericardium: The pericardium appears normal. Aorta: There is no dilatation of the ascending aorta. The aortic arch is not well visualized. There is no dilation of the aortic root. Pulmonary Artery: The main pulmonary artery appears normal. Venous: The venous system is not well visualized. Contrast: Definity was used to optimize study. A total of 3ml used. Intravenous contrast was used to enhance endocardial border definition. Summary: There are no significant changes when compared to the previous study done on 04/15/16 Conclusions Global left ventricular wall motion and contractility are within normal limits. There is normal left ventricular systolic function. The estimated ejection fraction is 60-65%. The right ventricular global systolic function is normal. Systolic excursion of the aortic valve cusps is reduced. There is moderate aortic stenosis. There is no evidence of aortic regurgitation. There is moderate mitral regurgitation. There is moderate tricuspid regurgitation. There is evidence of moderate pulmonary hypertension. The pericardium appears normal. There are no significant changes when compared to the previous study done on 04/15/16 Measurements Name Value Normal Range RVIDd (AP) 2D 1.5 cm (0.9 - 2.6) IVSd (2D) 0.7 cm (0.6 - 1) LVPWd (2D) 1 cm (0.6 - 1) LVIDd (2D) 3.3 cm (3.6 - 5.4) LVIDs (2D) 1.7 cm - LV FS (2D) 51 % (25 - 45) Aortic Annulus 1.5 cm (1.4 - 2.6) Ao root diameter (2D) 2.8 cm (2.1 - 3.5) Ascending Ao 3.4 cm (2.1 - 3.4) LA dimension (AP) 2D 3.7 cm (2.3 - 3.8) Name Value Normal Range MV E-wave Vmax 1.2 m/sec - MV deceleration time 252 msec - MV A-wave Vmax 0.8 m/sec - MV E:A ratio 1.49 ratio - LV septal e' Vmax 0.06 m/sec - LV lateral e' Vmax 0.06 m/sec - LV E:e' septal ratio 20 ratio - LV E:e' lateral ratio 20 ratio - Name Value Normal Range AV Vmax 2.9 m/sec - AV VTI 62.7 cm - AV peak gradient 33.2 mmHg - AV mean gradient 17.45 mmHg - LVOT diameter 1.7 cm - LVOT Vmax 1.1 m/sec - LVOT VTI 30.2 cm - LVOT peak gradient 5.26 mmHg - LVOT mean gradient 2.86 mmHg - YAN (continuity Vmax) 0.9 cm2 - YAN (continuity VTI) 1.1 cm2 - Name Value Normal Range MR Vmax 5.23 m/sec - MR VTI 155.2 cm - Name Value Normal Range TR Vmax 3.1 m/sec - TR peak gradient 38 mmHg - RAP 8 mmHg - RVSP 46 mmHg - Name Value Normal Range PV Vmax 0.8 m/sec - PV peak gradient 2.8 mmHg -
--- NOTE | 2017-04-18 17:50 | ED ---
Danilo Gan Angela, scribed for Michael Steele MD on 04/18/17 at 0736 . HPI Chest Pain - HPI Summary HPI Summary: This pt is a 82 y/o female presenting [place] [facility] [place]/o chest pain today. Pt reports she had chest pain that lasted about 2 hours, which began at 04:00 today. She states that she had difficulty sleeping all night secondary to pain. Pt then came to the ED and was given oxygen which alleviated her pain. Pt additionally c /o SOB and chest congestion. She currently notes her chest pain has resolved. Pt is a current smoker. - History of Current Complaint Chief Complaint: EDShortnessOfBreath Time Seen by Provider: 04/18/17 07:21 Hx Obtained From: Patient Onset/Duration: Started Hours Ago, Resolved Timing: Lasting Hours Current Severity: Moderate Pain Intensity: 0 Chest Pain Location: Diffuse Chest Pain Radiates: No Aggravating Factor(s): Nothing Alleviating Factor(s): Oxygen Associated Signs and Symptoms: Positive: Shortness of Breath, Other: - chest congestion - Additional Pertinent History Primary Care Physician: KENJI - Allergy/Home Medications Allergies/Adverse Reactions: Allergies Allergy/AdvReac Type Severity Reaction Status Date / Time Sulfa Drugs Allergy Severe Swelling Verified 03/16/16 14:02 Of Face,Lips,& Throat Tetracyclines & Related Allergy Severe Blurred Verified 03/16/16 14:02 Vision Carbamazepine [From Tegretol] Allergy Intermediate Itching Verified 03/16/16 14: 02 Iodine Allergy Intermediate See Comment Verified 03/16/16 14:02 Phenytoin [From Dilantin] Allergy Intermediate Shakes Verified 03/16/16 14:02 Prednisone Allergy Intermediate Palpitation Verified 03/16/16 14:02 s Latex Allergy Mild Rash Verified 03/16/16 14:02 Olanzapine [From Zyprexa] Allergy Unknown Altered Verified 03/16/16 14:02 Mental Status Valproic Acid [From Depakote] Allergy Unknown Altered Verified 03/16/16 14:02 Mental Status Cetirizine [From Zyrtec] Allergy Unknown Verified 03/16/16 14:02 Reaction Details Home Medications: Home Medications Atorvastatin* [Lipitor 80 MG*] 80 mg PO BEDTIME 04/18/17 [History Confirmed ] Butalb/Acetamin/Caff TAB* [Fioricet TAB*] 1 tab PO DAILY PRN MDD Up to 3 times a week 04/18/17 [History Confirmed 04/18/17] Ergocalciferol CAP* [Drisdol CAP*] 50,000 unit PO MONTHLY 04/18/17 [History Confirmed 04/18/17] Fexofenadine (NF) [Chaya 180 (NF)] 180 mg PO QAM 04/18/17 [History Confirmed 04/18/17] Loperamide CAP* [Imodium CAP*] 2 mg PO QID PRN 04/18/17 [History Confirmed 04/18] Mirtazapine TAB* [Remeron TAB*] 15 mg PO BEDTIME 04/18/17 [History Confirmed ] Ondansetron ODT TAB* [Zofran 4 MG Odt TAB*] 8 mg PO Q6H PRN 04/18/17 [History Confirmed 04/18/17] Umeclidin 62.5 MDI(NF) [Incruse ELLIPTA MDI (NF)] 1 inh INH DAILY 04/18/17 [ History Confirmed 04/18/17] busPIRone TAB* [Buspar TAB*] 5 mg PO BID PRN 04/18/17 [History Confirmed ] celeCOXIB CAP* [CeleBREX CAP*] 200 mg PO QAM 04/18/17 [History Confirmed ] PMH/Surg Hx/FS Hx/Imm Hx Endocrine/Hematology History: Reports: Hx Thyroid Disease - HASHIMOTOS, Hx Anemia - CHRONIC HEMOLYTIC ANEMIA Denies: Hx Anticoagulant Therapy, Hx Diabetes Cardiovascular History: Reports: Hx Coronary Artery Disease, Hx Hypertension Denies: Hx Pacemaker/ICD Comment Only: Other Cardiovascular Problems/Disorders - HX OF MASTECTOMY Respiratory History: Reports: Hx Asthma, Hx Chronic Bronchitis - not chronic, Hx Chronic Obstructive Pulmonary Disease (COPD) - CAD, Hx Pneumonia, Other Respiratory Problems/Disorders - emphysema GI History: Reports: Hx Gastroesophageal Reflux Disease, Hx Hiatal Hernia, Hx Irritable Bowel, Hx Obstructive Bowel, Other GI Disorders - small bowel obstruction History: Reports: Hx Acute Renal Failure, Hx Kidney Stones, Hx Renal Disease - 1 KIDNEY, Other Problems/Disorders - renal disease Musculoskeletal History: Reports: Hx Arthritis - OSTEOARTHRITIS, Hx Osteoporosis Denies: Hx Rheumatoid Arthritis Sensory History: Reports: Hx Cataracts Denies: Hx Contacts or Glasses, Hx Hearing Aid Opthamlomology History: Reports: Hx Cataracts Denies: Hx Contacts or Glasses Neurological History: Reports: Hx Headaches - WITH ELEVATION IN BLOOD PRESSURE, Hx Migraine - WITH VALSALVAR MOVEMENT, Hx Seizures - BI-TEMPORAL INCOMPLETE FOCAL SEIZURES Psychiatric History: Reports: Hx Anxiety Denies: Hx Panic Disorder - Cancer History Cancer Type, 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 RIGHT NEPHRECTOMY Hx Anesthesia Reactions: Yes Infectious Disease History: Unable to Obtain/Confirm Infectious Disease History: Denies: Traveled Outside the [place] in Last 30 Days - Family History Known Family History: Positive: Respiratory Disease - COPD - Social History Alcohol Use: None Hx Substance Use: No Substance Use Type: Reports: None Hx Tobacco Use: Yes Smoking Status (MU): Heavy Every Day Tobacco Smoker Type: Cigarettes Amount Used/How Often: 1 ppd 50 yrs Length of Time of Smoking/Using Tobacco: 50 years Have You Smoked in the Last Year: Yes Review of Systems Negative: Fever, Chills ENT: Other - chest congestion Positive: Chest Pain Positive: Shortness Of Breath All Other Systems Reviewed And Are Negative: Yes Physical Exam - Summary Physical Exam Summary: VITAL SIGNS: Reviewed. GENERAL: Patient is a well-developed and nourished female who is lying comfortable in the stretcher. Patient is not in any acute respiratory distress. HEAD AND FACE: No signs of trauma. No ecchymosis, hematomas or skull depressions. No sinus tenderness. EYES: PERRLA, EOMI x 2, No injected conjunctiva, no nystagmus. EARS: Hearing grossly intact. Ear canals and tympanic membranes are within normal limits. MOUTH: Oropharynx within normal limits. NECK: Supple, trachea is midline, no adenopathy, no JVD, no carotid bruit, no c- spine tenderness, neck with full ROM. CHEST: Symmetric, no tenderness at palpation. Pt has a left mastectomy. LUNGS: Clear to auscultation bilaterally. No wheezing or crackles. CVS: Regular rate and rhythm, S1 and S2 present, no murmurs or gallops appreciated. ABDOMEN: Soft, non-tender. No signs of distention. No rebound no guarding, and no masses palpated. Bowel sounds are normal. EXTREMITIES: FROM in all major joints, no edema, no cyanosis or clubbing. NEURO: Alert and oriented x 3. No acute neurological deficits. Speech is normal and follows commands. SKIN: Dry and warm Triage Information Reviewed: Yes Vital Signs On Initial Exam: Initial Vitals Temp Pulse Resp BP Pulse Ox 97.5 F 67 16 149/55 95 04/18/17 06:04 04/18/17 06:04 04/18/17 06:04 04/18/17 06:04 04/18/17 06:04 Vital Signs Reviewed: Yes Diagnostics - Vital Signs Vital Signs Temp Pulse Resp BP Pulse Ox 04/18/17 06:04 97.5 F 67 16 149/55 95 - Laboratory Lab Results: Lab Results 04/18/17 04/18/17 04/18/17 Range/Units 08:04 08:04 08:04 WBC 16.1 H (3.5-10.8) 10^3/ul RBC 4.08 (4.0-5.4) 10^6/ul Hgb 12.8 (12.0-16.0) g/dl Hct 37 (35-47) % MCV 92 (80-97) fL MCH 32 H (27-31) pg MCHC 34 (31-36) g/dl RDW 16 H (10.5-15) % Plt Count 300 (150-450) 10^3/ul MPV 8 (7.4-10.4) um3 Neut % (Auto) 77.4 (38-83) % Lymph % (Auto) 13.6 L (25-47) % Ashe % (Auto) 7.1 (1-9) % Eos % (Auto) 0.9 (0-6) % Baso % (Auto) 1.0 (0-2) % Absolute Neuts (auto) 12.4 H (1.5-7.7) 10^3/ul Absolute Lymphs (auto) 2.2 (1.0-4.8) 10^3/ul Absolute Monos (auto) 1.1 H (0-0.8) 10^3/ul Absolute Eos (auto) 0.1 (0-0.6) 10^3/ul Absolute Basos (auto) 0.2 (0-0.2) 10^3/ul Absolute Nucleated RBC 0 10^3/ul Nucleated RBC % 0.1 INR (Anticoag Therapy) (0.77-1.02) APTT (26.0-36.3) seconds ABG pH (7.35-7.45) ABG pCO2 (35-45) mmHg ABG pO2 (80-100) mmHg ABG HCO3 (19-31) mmol/L ABG O2 Saturation (95-98) % ABG Base Excess (-2.0-2.0) Sodium 134 (133-145) mmol/L Potassium 3.9 (3.5-5.0) mmol/L Chloride 103 (101-111) mmol/L Carbon Dioxide 25 (22-32) mmol/L Anion Gap 6 (2-11) mmol/L BUN 14 (6-24) mg/dL Creatinine 0.79 (0.51-0.95) mg/dL Est GFR ( Amer) 89.4 (>60) Est GFR (Non-Af Amer) 69.5 (>60) BUN/Creatinine Ratio 17.7 (8-20) Glucose 125 H (70-100) mg/dL Lactic Acid 0.8 (0.5-2.0) mmol/L Calcium 9.5 (8.6-10.3) mg/dL Total Bilirubin 0.60 (0.2-1.0) mg/dL AST 22 (13-39) U/L ALT 15 (7-52) U/L Alkaline Phosphatase 225 H (34-104) U/L Total Creatine Kinase 42 (10-223) U/L CK-MB (CK-2) 2.4 (0.6-6.3) ng/mL Troponin I 0.01 (<0.04) ng/mL C-Reactive Protein 37.63 H (< 5.00) mg/L B-Natriuretic Peptide ( - 100) pg/mL Total Protein 7.0 (6.4-8.9) g/dL Albumin 3.7 (3.2-5.2) g/dL Globulin 3.3 (2-4) g/dL Albumin/Globulin Ratio 1.1 (1-3) Urine Color Urine Appearance Urine pH (5-9) Ur Specific [place] (1.010-1.030) Urine Protein (Negative) Urine Ketones (Negative) Urine Blood (Negative) Urine Nitrate (Negative) Urine Bilirubin (Negative) Urine Urobilinogen (Negative) Ur Leukocyte Esterase (Negative) Urine Glucose (Negative) Influenza A (Rapid) (Negative) Influenza B (Rapid) (Negative) 04/18/17 04/18/17 04/18/17 Range/Units 08:04 08:04 08:28 WBC (3.5-10.8) 10^3/ul RBC (4.0-5.4) 10^6/ul Hgb (12.0-16.0) g/dl Hct (35-47) % MCV (80-97) fL MCH (27-31) pg MCHC (31-36) g/dl RDW (10.5-15) % Plt Count (150-450) 10^3/ul MPV (7.4-10.4) um3 Neut % (Auto) (38-83) % Lymph % (Auto) (25-47) % Ashe % (Auto) (1-9) % Eos % (Auto) (0-6) % Baso % (Auto) (0-2) % Absolute Neuts (auto) (1.5-7.7) 10^3/ul Absolute Lymphs (auto) (1.0-4.8) 10^3/ul Absolute Monos (auto) (0-0.8) 10^3/ul Absolute Eos (auto) (0-0.6) 10^3/ul Absolute Basos (auto) (0-0.2) 10^3/ul Absolute Nucleated RBC 10^3/ul Nucleated RBC % INR (Anticoag Therapy) 0.94 (0.77-1.02) APTT 28.2 (26.0-36.3) seconds ABG pH (7.35-7.45) ABG pCO2 (35-45) mmHg ABG pO2 (80-100) mmHg ABG HCO3 (19-31) mmol/L ABG O2 Saturation (95-98) % ABG Base Excess (-2.0-2.0) Sodium (133-145) mmol/L Potassium (3.5-5.0) mmol/L Chloride (101-111) mmol/L Carbon Dioxide (22-32) mmol/L Anion Gap (2-11) mmol/L BUN (6-24) mg/dL Creatinine (0.51-0.95) mg/dL Est GFR ( Amer) (>60) Est GFR (Non-Af Amer) (>60) BUN/Creatinine Ratio (8-20) Glucose (70-100) mg/dL Lactic Acid (0.5-2.0) mmol/L Calcium (8.6-10.3) mg/dL Total Bilirubin (0.2-1.0) mg/dL AST (13-39) U/L ALT (7-52) U/L Alkaline Phosphatase (34-104) U/L Total Creatine Kinase (10-223) U/L CK-MB (CK-2) (0.6-6.3) ng/mL Troponin I (<0.04) ng/mL C-Reactive Protein (< 5.00) mg/L B-Natriuretic Peptide 495 H ( - 100) pg/mL Total Protein (6.4-8.9) g/dL Albumin (3.2-5.2) g/dL Globulin (2-4) g/dL Albumin/Globulin Ratio (1-3) Urine Color Urine Appearance Urine pH (5-9) Ur Specific [place] (1.010-1.030) Urine Protein (Negative) Urine Ketones (Negative) Urine Blood (Negative) Urine Nitrate (Negative) Urine Bilirubin (Negative) Urine Urobilinogen (Negative) Ur Leukocyte Esterase (Negative) Urine Glucose (Negative) Influenza A (Rapid) Negative (Negative) Influenza B (Rapid) Negative (Negative) 04/18/17 04/18/17 Range/Units 09:02 09:20 WBC (3.5-10.8) 10^3/ul RBC (4.0-5.4) 10^6/ul Hgb (12.0-16.0) g/dl Hct (35-47) % MCV (80-97) fL MCH (27-31) pg MCHC (31-36) g/dl RDW (10.5-15) % Plt Count (150-450) 10^3/ul MPV (7.4-10.4) um3 Neut % (Auto) (38-83) % Lymph % (Auto) (25-47) % Ashe % (Auto) (1-9) % Eos % (Auto) (0-6) % Baso % (Auto) (0-2) % Absolute Neuts (auto) (1.5-7.7) 10^3/ul Absolute Lymphs (auto) (1.0-4.8) 10^3/ul Absolute Monos (auto) (0-0.8) 10^3/ul Absolute Eos (auto) (0-0.6) 10^3/ul Absolute Basos (auto) (0-0.2) 10^3/ul Absolute Nucleated RBC 10^3/ul Nucleated RBC % INR (Anticoag Therapy) (0.77-1.02) APTT (26.0-36.3) seconds ABG pH 7.39 (7.35-7.45) ABG pCO2 40 (35-45) mmHg ABG pO2 71 L (80-100) mmHg ABG HCO3 24.3 (19-31) mmol/L ABG O2 Saturation 97.6 (95-98) % ABG Base Excess -0.7 (-2.0-2.0) Sodium (133-145) mmol/L Potassium (3.5-5.0) mmol/L Chloride (101-111) mmol/L Carbon Dioxide (22-32) mmol/L Anion Gap (2-11) mmol/L BUN (6-24) mg/dL Creatinine (0.51-0.95) mg/dL Est GFR ( Amer) (>60) Est GFR (Non-Af Amer) (>60) BUN/Creatinine Ratio (8-20) Glucose (70-100) mg/dL Lactic Acid (0.5-2.0) mmol/L Calcium (8.6-10.3) mg/dL Total Bilirubin (0.2-1.0) mg/dL AST (13-39) U/L ALT (7-52) U/L Alkaline Phosphatase (34-104) U/L Total Creatine Kinase (10-223) U/L CK-MB (CK-2) (0.6-6.3) ng/mL Troponin I (<0.04) ng/mL C-Reactive Protein (< 5.00) mg/L B-Natriuretic Peptide ( - 100) pg/mL Total Protein (6.4-8.9) g/dL Albumin (3.2-5.2) g/dL Globulin (2-4) g/dL Albumin/Globulin Ratio (1-3) Urine Color Straw Urine Appearance Clear Urine pH 5.0 (5-9) Ur Specific [place] 1.003 L (1.010-1.030) Urine Protein Negative (Negative) Urine Ketones Negative (Negative) Urine Blood Negative (Negative) Urine Nitrate Negative (Negative) Urine Bilirubin Negative (Negative) Urine Urobilinogen Negative (Negative) Ur Leukocyte Esterase Negative (Negative) Urine Glucose Negative (Negative) Influenza A (Rapid) (Negative) Influenza B (Rapid) (Negative) Result Diagrams: 04/18/17 08:04 04/18/17 08:04 Lab Statement: Any lab studies that have been ordered have been reviewed, and results considered in the medical decision making process. - Radiology Chest XR Xray Interpretation: Positive (See Comments) - IMPRESSION: 1. COPD. 2. Diffuse coarse interstitial opacification which may reflect chronic interstitial disease or mild pulmonary interstitial edema. 3. Small bilateral pleural effusions. Dr. Steele has reviewed this radiology report. Radiology Interpretation Completed By: Radiologist - EKG 07:21 Cardiac Rate: NL EKG Rhythm: Sinus Rhythm - at 60 bpm EKG Interpretation: No ST elevation. Normal axis. Re-Evaluation - Re-Evaluation First Eval Re-Evaluation Time: 10:45 Comment: I reviewed lab and chest XR results with the pt. Chest Pain Course/Dx - Course Course Of Treatment: This pt is a 82 y/o female presenting to [facility] c/o chest pain today. Pt reports she had chest pain that lasted about 2 hours, which began at 04:00 today. She states that she had difficulty sleeping all night secondary to pain. Pt then came to the ED and was given oxygen which alleviated her pain. Pt additionally c/o SOB and chest congestion. She currently notes her chest pain has resolved. Pt is a current smoker. Test results shows WBC of 16.1, ABG pH of 7.93, pCO2 of 40, PO2 of 71, BNP 495, CRP of 37.6. Influenza A and B is negative. Chest XR shows 1. COPD. 2. Diffuse coarse interstitial opacification which may reflect chronic interstitial disease or mild pulmonary interstitial edema. 3. Small bilateral pleural effusions. I believe the pt has slight CHF, however the pt continues to have chest pain despite nitroglycerin. Therefore, I discussed the findings and test results with Dr. Jc, hospitalist , who accepted the pt for admission. Pt is hemodynamically stable, alert and oriented x3. - Chest Pain Differential Diagnosis/HQI/PQRI: Acute [place], ACS, Angina, CHF, Chest Wall, GI Disease, Lower Respiratory Infection - Diagnoses Provider Diagnoses: Chest pain, rule out ACS, CHF (congestive heart failure) - Provider Notifications Discussed Care Of Patient With: Kuldeep Jc Time Discussed With Above Provider: 10:50 Instructed by Provider To: Other - I discussed pt care with Dr. Jc, hospitalist, who has agreed to admit the pt. Discharge - Discharge Plan Condition: Stable Disposition: ADMITTED TO [facility] documentation as recorded by the Danilo conner Angela accurately reflects the service I personally performed and the decisions made by Cedric godwin Walter, MD.
--- NOTE | 2017-04-18 20:21 | HP ---
HISTORY AND PHYSICAL: DATE OF ADMISSION: 04/18/17 PRIMARY CARE PROVIDER: Dr. Nancy Burciaga. ATTENDING PHYSICIAN: Dr. Kuldeep Jc.* (DICTATED BY SHABNAM GARCIA NP) CHIEF COMPLAINT: Shortness of breath and chest pain. HISTORY OF PRESENT ILLNESS: This is a very pleasant 82-year-old female patient who presents to the emergency department with a complaint of increasing shortness of breath over the last couple of days. The patient states that she has not really followed up with her recommendations for Pulmonology and Cardiology of late. She has been talking with her primary care doctor, Dr. Burciaga, and explained that she was having some increasing shortness of breath and some chest pressure while she was at home. She was referred to the emergency department for evaluation. Of significant note, the patient has longstanding history of COPD. She is not on oxygen at home; however, she is still an active smoker. Also of significant note, she has a history coronary artery disease, had non-ST segment elevation SD last January 2016 and received stenting with Dr. Lees. Her history is also known for irritable bowel syndrome , history of breast cancer with mastectomy, anxiety disorder, hemolytic anemia, osteoarthritis and chronic pain, hypertension, hypothyroidism, hyperlipidemia, aortic stenosis, and GERD. Upon examination, the patient is alert and mildly anxious. The patient states she no longer has any chest pain. She does feel clinically short of breath. She is on oxygen presently with improvement. Her daughter is at bedside. She denies any fever, or fatigue. Overall, states that her shortness of breath is her primary issue at this time and again chest pain is resolved. Appears to be resting comfortably, complains of a chronic pain, some burning sensation in the lower back and into her hips. Does state that she has had some chills over the past few days, but remains afebrile with no further constitutional complaints. PAST MEDICAL HISTORY: As stated above. PAST SURGICAL HISTORY: Significant for left mastectomy, splenectomy in June 2014, hysterectomy, bladder surgery, appendectomy, arthroscopy of the knees and also injections bilaterally of the knees, carpal tunnel release, and ankle surgery in the past. HOME MEDICATIONS: 1. MiraLAX 17 g daily. 2. Folic acid 1 mg daily. 3. Dicyclomine 10 mg 3 times a day. 4. Gabapentin 300 mg 3 times a day. 5. Singulair 10 mg daily. 6. Multivitamin one tablet daily. 7. Omeprazole 20 mg daily. 8. Vitamin B12, 500 mcg daily. 9. Probiotics one cap daily. 10. Hydrocodone/acetaminophen 5/325 mg one tablet 2 times a day as needed. 11. Aspirin low dose 81 mg daily. 12. Levothyroxine 25 mcg daily. 13. Propylene Glycol Ophthalmic 0.6% one drop each eye 3 to 4 times a day as needed. 14. Guaifenesin tabs 600 mg 2 times a day. 15. Fluticasone spray 50 mcg 1 spray each nostril daily. 16. Albuterol inhaler 1 to 2 puffs q. 4 to 6 hours as needed for shortness of breath. 17. Metoprolol tartrate 25 mg by mouth 2 times a day. 18. Amlodipine 10 mg daily. 19. BuSpar 5 mg 2 times a day. 20. Celebrex 200 mg daily. 21. Fexofenadine 180 mg daily. 22. Incruse Ellipta MDI inhaler 1 inhalation daily. 23. Mirtazapine/Remeron 15 mg at bedtime. 24. Zofran orally disintegrating tablets 8 mg q. 6 hours as needed. 25. Loperamide 2 mg 4 times a day as needed. 26. Ergocalciferol 50,000 units 1 tablet monthly. 27. Fioricet tablets 1 tablet daily as needed up to 3 times a week only. 28. Lipitor 80 mg in the evening. FAMILY HISTORY: She has a brother with a brain tumor and cancer and her father with history of MS, and mother with history of dementia. SOCIAL HISTORY: The patient is a current every day smoker, has a 51 pack year history and is a current every day tobacco user. She lives at home by herself. She does have [employer] services in the home, is retired and her daughter is her caregiver. She denies any alcohol use or abuse never in the past and denies any illicit drug use. REVIEW OF SYSTEMS: A 10-point review of systems is negative except as noted in the HPI. PHYSICAL EXAMINATION GENERAL: The patient is awake and alert, in no acute distress, somewhat anxious , I believe at her baseline, however. VITAL SIGNS: Currently, temperature 97.5, pulse 67, respiratory rate 16, O2 saturation 95% on 2 L nasal cannula, blood pressure 149/55. HEENT: The patient is atraumatic, normocephalic. PERRLA with nonicteric sclerae. NECK: Supple, nontender. No JVD noted. No thyromegaly appreciated. No carotid bruit auscultated. CARDIOVASCULAR: Heart rate and rhythm are regular. No murmurs, gallops, or rubs noted. LUNGS: Clear at the apices, diminished bases with bilateral expiratory wheezes. ABDOMEN: Soft, nontender, nondistended. Positive bowel sounds in all 4 quadrants. : Deferred. MUSCULOSKELETAL: There is no clubbing. No cyanosis and no edema. She has +2 distal pulses palpable and again no edema appreciated. NEUROLOGIC: Grossly intact. There are no focal deficits. SKIN: Warm, dry, and intact. PSYCHIATRIC: She is cooperative and appropriate, albeit anxious. LABORATORY DATA AND DIAGNOSTIC DATA: WBC is 16.1, RBC is 4.08, hemoglobin 12.8 , hematocrit 37, platelets 300. Chemistry: Sodium 134, potassium 3.9, chloride 103, CO2 25, BUN 14, creatinine 0.79, GFR 69.5, glucose 125, lactic acid 0.8, calcium 9.5, bilirubin 0.6, AST 22, ALT 15, alk phos 225. CK-MB 2.4. First troponin is 0.01. CRP is 37.63. BNP is 495. Total protein 7.0, albumin 3.7, globulin 3.3. Blood gas: pH 7.39, pCO2 40, pO2 71, bicarb 24.3, O2 saturation is 97.6 and base excess of negative 0.7. Urinalysis is negative for any infectious process. Rapid flu A and B are currently negative. Chest x-ray shows baseline COPD, some hyperinflation, and bilateral pleural effusions. Does not appear to have any consolidation or infiltrate. Does not appear to be in any pulmonary vascular congestion. EKG shows regular sinus rhythm with no acute ST segment elevations or irregularities. IMPRESSION: This is an 81-year-old female with a complicated past medical history including severe COPD, coronary artery disease, aortic stenosis, irritable bowel syndrome, anxiety, hemolytic anemia with splenectomy, breast cancer, chronic pain, hypertension, hyperlipidemia, hypothyroidism, and GERD, who presented to the emergency department with acute shortness of breath likely with a COPD exacerbation and probably some mild fluid overload secondary to heart failure. DIAGNOSES: 1. Chronic obstructive pulmonary disease exacerbation. 2. Acute heart failure. 3. Likely qqtyulja-rq-broliq aortic stenosis. 4. Coronary artery disease. 5. Irritable bowel syndrome. 6. History of anxiety. 7. Chronic pain. 8. Hypothyroidism. 9. Hypertension. 10. Hyperlipidemia. 11. Gastroesophageal reflux disease. PLAN: The patient will be admitted to observation status. The patient will be restarted on her home medications, which she will started empirically on Zithromax for its anti-inflammatory properties as well to cover for her acute exacerbation of COPD. She will receive 500 mg a day for 5 days. we will also start her on DuoNeb q. 6 hours as needed and maintain her on her home medications and inhalers. Also, oxygen at 2 L nasal cannula to maintain her O2 saturations greater than 90%. I suspect the patient will likely need home oxygen after this event. She states she has not needed in the past; however, we will do walking sats probably tomorrow and assess her need again at discharge for home O2 needs. First troponin is negative. We will do two more troponins to ensure there was no cardiac damage. She did receive one dose of nitroglycerin here in the ER. I do not know if this is cardiac related; however , given her coronary artery disease and aortic stenosis, she did receive 20 of Lasix in the ER. We will continue with 20 of Lasix daily. We will repeat her echocardiogram. It has been over a year since she has had one to evaluate her aortic stenosis and see if that is a culprit for some acute heart failure at this point. We will continue her on her aspirin, her atorvastatin, and rest of her cardiac meds, her blood pressure medications. For anxiety, she said she was having an issue with her mirtazapine; however, I will place her on some small dose Xanax 3 times a day as needed for her anxiety. The rest of her home medications will be continued. She will remain on telemetry continuous. She may go off test for telemetry as needed. She will be placed on low-sodium diet. We will recheck her BNP, her CMP, and CBC in the morning. Recheck an EKG if needed; however, with no changes I doubt she is going to be having any further issues. However if her troponins turner machine positive, then we will consult Dr. Lees as well who is her motorcycle police officer who placed her stents. Also if there are any acute changes on her echocardiogram, we will also discuss this with Dr. Lees. The rest of the patient's course will be determined by further diagnostics, laboratories and any other input from other providers as warranted during this admission. Also of significant note, I discussed at length the patient's request for DNR versus active treatment. The patient is DNR in the computer; however, when I discussed this with her, she seemed to be concerned that perhaps she no longer wanted to be DNR. She wanted to discuss this further with her daughter. I gave her daughter and her a few minutes to discuss this; however, the daughter did not come back to me with any results. So, the MOLST will be updated after I have another discussion with her and her daughter either later today or tomorrow. So for now, it is still DNR in the computer. I think it will likely stay that way, but we are unsure at this point. Her daughter's name is Sherry. She is her healthcare proxy and decision maker. Her name is Sherry Perez, phone number [phone]. I also suspect the patient may be here longer than a 24-hour stay depending on the results of her examination and her echocardiogram. SHABNAM GARCIA, AFSANEH [id number]/[facility] #: [id number] MTDJaleesa
[2017-04-18] MEDS: Atorvastatin* 80 MG TAB PO SCH (21:48)
[2017-04-18] MEDS: Metoprolol Tartrate TAB* 25 MG PO SCH (21:52)
[2017-04-18] MEDS: Mirtazapine TAB* 15 MG PO SCH (21:53)
[2017-04-18] MEDS: Montelukast Sodium TAB* 10 MG PO SCH (21:53)
--- NOTE | 2017-04-18 22:18 | PN ---
Progress Note - Progress Note Date of Service: 04/18/17 Note: Paged from Dr. Burciaga, patient's PCP - recommended no benzo's as patient becomes more confused with benzos. Also patient is not taking dicyclomine, this was also discontinued. Dr. Burciaga is concerned that this is more cardiac etiology than COPD issue.
[2017-04-19 05:57] LABS: ABS Basophils 0 10^3/ul (0-0.2); ABS Eosinophils 0.6 10^3/ul (0-0.6); ABS Lymphocytes 3.8 10^3/ul (1.0-4.8); ABS Monocytes 1.5 10^3/ul (0-0.8); ABS Neutrophils 5.5 10^3/ul (1.5-7.7); ABS Nucleated RBC 0 10^3/ul; Eosinophil % 5.6 % (0-6); Hematocrit 30 % (35-47); Hemoglobin 10.5 g/dl (12.0-16.0); Lymphocyte % 32.9 % (25-47); Mean Corpuscular HGB Conc 35 g/dl (31-36); Mean Corpuscular Hemoglobin 32 pg (27-31); Mean Corpuscular Volume 92 fL (80-97); Mean Platelet Volume 8 um3 (7.4-10.4); Nucleated Red Blood Cells % 0.1; Platelet Count 258 10^3/ul (150-450); Red Blood Count 3.24 10^6/ul (4.0-5.4); Red Cell Distribution Width 16 % (10.5-15); White Blood Count 11.5 10^3/ul (3.5-10.8)
[2017-04-19 06:12] LABS: EGFR Non-African American 57.6 (>60)
[2017-04-19] MEDS: Levothyroxine TAB* 25 MCG TAB PO SCH (06:18)
[2017-04-19] MEDS: Heparin VIAL(*) 5000 UNITS/ML VIAL (FIVE THOUSAND) SUBCUT SCH ×3 (06:18→22:08)
[2017-04-19] MEDS: Fluticasone NASAL SPRAY 50MCG* 16 gm SPRAY BTL BOTH NARES SCH (08:06)
[2017-04-19] MEDS: Gabapentin CAP(*) 300 MG PO SCH ×3 (08:07→22:05)
[2017-04-19] MEDS: amLODIPine TAB* 5 MG PO SCH (08:07)
[2017-04-19] MEDS: Lactobacillus Acidophilu (GG)* 1 CAP CAP PO SCH (08:08)
[2017-04-19] MEDS: Cyanocobalamin TAB* 500 MCG PO SCH (08:08)
[2017-04-19] MEDS: Metoprolol Tartrate TAB* 25 MG PO SCH ×2 (08:08→22:07)
[2017-04-19] MEDS: Folic Acid TAB* 1 MG PO SCH (08:08)
[2017-04-19] MEDS: Multivitamins/Minerals TAB PO SCH (08:08)
[2017-04-19] MEDS: Aspirin EC Low Dose* 81 MG TAB.EC PO SCH (08:08)
[2017-04-19] MEDS: Omeprazole CAP* 20 MG PO SCH (08:08)
[2017-04-19] MEDS: Umeclidin 62.5 MDI(NF) 1 INH MDI INH SCH (08:09)
--- NOTE | 2017-04-19 09:09 | PN ---
Subjective Date of Service: 04/19/17 Interval History: Pt c/o feeling SOB in her "neck"- no tachypnea noted, 02 sat 97% on 2 l 02. Pt stated that in the past she had been having "low energy " after steroid use and agrees to try IV steroids today Objective Active Medications: Acetaminophen/Butalbital/Caffeine (Fioricet Tab*) 1 tab PO DAILY PRN PRN Reason: MIGRAINE HEADACHE Hydrocodone Bitart/Acetaminophen ([place] 5-325 Tab*) 1 tab PO BID PRN PRN Reason: PAIN Last Admin: 04/18/17 22:06 Dose: 1 tab Albuterol (Ventolin Hfa Inhaler*) 2 puff INH .Q4-6H PRN PRN Reason: SHORTNESS OF BREATH Last Admin: 04/19/17 07:21 Dose: 2 puff Albuterol/Ipratropium (Duoneb (Albuterol 2.5 Mg/Ipratropium 0.5 Mg)) 1 neb INH Q6H PRN PRN Reason: SOB/WHEEZING Amlodipine Besylate (Norvasc Tab*) 10 mg PO DAILY [facility] Last Admin: 04/19/17 08:07 Dose: 10 mg Aspirin (Aspirin Ec Low Dose*) 81 mg PO DAILY [facility] Last Admin: 04/19/17 08:08 Dose: 81 mg Atorvastatin Calcium (Lipitor*) 80 mg PO BEDTIME [facility] Last Admin: 04/18/17 21:48 Dose: 80 mg Buspirone HCl (Buspar Tab*) 5 mg PO BID PRN PRN Reason: ANXIETY Cyanocobalamin (Vitamin B12 Tab*) 500 mcg PO DAILY [facility] Last Admin: 04/19/17 08:08 Dose: 500 mcg Fluticasone Propionate (Flonase Nasal [place] 50mcg*) 1 spray BOTH NARES DAILY [facility] Last Admin: 04/19/17 08:06 Dose: 1 spray Folic Acid (Folvite Tab*) 1 mg PO DAILY [facility] Last Admin: 04/19/17 08:08 Dose: 1 mg Gabapentin (Neurontin Cap(*)) 600 mg PO TID [facility] Last Admin: 04/19/17 08:07 Dose: 600 mg Guaifenesin (Mucinex*) 600 mg PO BID PRN PRN Reason: CONGESTION Heparin Sodium (Porcine) (Heparin Vial(*)) 5,000 units SUBCUT Q8HR [facility] Last Admin: 04/19/17 06:18 Dose: 5,000 units Azithromycin 500 mg/ Sodium (Chloride) 250 mls @ 250 mls/hr IVPB Q24H [facility] Stop: 04/23/17 12:59 Last Admin: 04/18/17 14:10 Dose: 250 mls/hr Lactobacillus Rhamnosus (Culturelle*) 1 cap PO DAILY [facility] Last Admin: 04/19/17 08:08 Dose: 1 cap Levothyroxine Sodium (Synthroid Tab*) 25 mcg PO 0600 [facility] Last Admin: 04/19/17 06:18 Dose: 25 mcg Methylprednisolone Sodium Succinate (Solu-Medrol 40 Mg) 40 mg IV Q12H [facility] Metoprolol Tartrate (Lopressor Tab*) 25 mg PO BID [facility] Last Admin: 04/19/17 08:08 Dose: 25 mg Mirtazapine (Remeron Tab*) 15 mg PO BEDTIME [facility] Last Admin: 04/18/17 21:53 Dose: 15 mg Montelukast Sodium (Singulair Tab*) 10 mg PO BEDTIME [facility] Last Admin: 04/18/17 21:53 Dose: 10 mg Multivitamins/Minerals (Theragran/Minerals Tab*) 1 tab PO DAILY [facility] Last Admin: 04/19/17 08:08 Dose: 1 tab Omeprazole (Prilosec Cap*) 20 mg PO QAM [facility] Last Admin: 04/19/17 08:08 Dose: 20 mg Polyethylene Glycol/Electrolytes (Miralax*) 17 gm PO DAILY PRN PRN Reason: CONSTIPATION Umeclidinium [place] (Incruse Ellipta Mdi (Nf)) 1 inh INH DAILY [facility] Last Admin: 04/19/17 08:09 Dose: Not Given Vital Signs - 8 hr 04/19/17 04/19/17 04/19/17 01:42 01:44 03:42 Temperature 97.8 F Pulse Rate 56 Respiratory 20 19 18 Rate Blood Pressure 115/43 (mmHg) O2 Sat by Pulse 94 Oximetry 04/19/17 04/19/17 04/19/17 07:29 08:07 08:12 Temperature 98.8 F Pulse Rate 63 63 Respiratory 16 22 19 Rate Blood Pressure 132/45 (mmHg) O2 Sat by Pulse 97 97 Oximetry Oxygen Devices in Use Now: Nasal Cannula - at 2L Appearance: 82 yo F in nAD, AAOx3, poor historian Eyes: No Scleral Icterus, PERRLA Ears/Nose/Mouth/Throat: NL Teeth, Lips, Gums, Mucous Membranes Moist Neck: NL Appearance and Movements; NL JVP, Trachea Midline Respiratory: Symmetrical Chest Expansion and Respiratory Effort, - - distanr breath sounds b/l coarse rhonchi and wheezes in RUL Cardiovascular: NL Sounds; No Murmurs; No JVD, RRR Abdominal: NL Sounds; No Tenderness; No Distention Lymphatic: No Cervical Adenopathy Extremities: No Edema, No Clubbing, Cyanosis Skin: No Rash or Ulcers, No Nodules or Sclerosis Neurological: Alert and Oriented x 3, NL Muscle Strength and Tone Result Diagrams: 04/19/17 05:44 04/19/17 05:44 Additional Lab and Data: Lab Results 04/18/17 04/18/17 04/18/17 Range/Units 08:04 08:04 08:04 WBC 16.1 H (3.5-10.8) 10^3/ul RBC 4.08 (4.0-5.4) 10^6/ul Hgb 12.8 (12.0-16.0) g/dl Hct 37 (35-47) % MCV 92 (80-97) fL MCH 32 H (27-31) pg MCHC 34 (31-36) g/dl RDW 16 H (10.5-15) % Plt Count 300 (150-450) 10^3/ul MPV 8 (7.4-10.4) um3 Neut % (Auto) 77.4 (38-83) % Lymph % (Auto) 13.6 L (25-47) % [place] % (Auto) 7.1 (1-9) % Eos % (Auto) 0.9 (0-6) % Baso % (Auto) 1.0 (0-2) % Absolute Neuts (auto) 12.4 H (1.5-7.7) 10^3/ul Absolute Lymphs (auto) 2.2 (1.0-4.8) 10^3/ul Absolute Monos (auto) 1.1 H (0-0.8) 10^3/ul Absolute Eos (auto) 0.1 (0-0.6) 10^3/ul Absolute Basos (auto) 0.2 (0-0.2) 10^3/ul Absolute Nucleated RBC 0 10^3/ul Nucleated RBC % 0.1 INR (Anticoag Therapy) (0.77-1.02) APTT (26.0-36.3) seconds ABG pH (7.35-7.45) ABG pCO2 (35-45) mmHg ABG pO2 (80-100) mmHg ABG HCO3 (19-31) mmol/L ABG O2 Saturation (95-98) % ABG Base Excess (-2.0-2.0) Sodium 134 (133-145) mmol/L Potassium 3.9 (3.5-5.0) mmol/L Chloride 103 (101-111) mmol/L Carbon Dioxide 25 (22-32) mmol/L Anion Gap 6 (2-11) mmol/L BUN 14 (6-24) mg/dL Creatinine 0.79 (0.51-0.95) mg/dL Est GFR ( Amer) 89.4 (>60) Est GFR (Non-Af Amer) 69.5 (>60) BUN/Creatinine Ratio 17.7 (8-20) Glucose 125 H (70-100) mg/dL Lactic Acid 0.8 (0.5-2.0) mmol/L Calcium 9.5 (8.6-10.3) mg/dL Total Bilirubin 0.60 (0.2-1.0) mg/dL AST 22 (13-39) U/L ALT 15 (7-52) U/L Alkaline Phosphatase 225 H (34-104) U/L Total Creatine Kinase 42 (10-223) U/L CK-MB (CK-2) 2.4 (0.6-6.3) ng/mL Troponin I 0.01 (<0.04) ng/mL C-Reactive Protein 37.63 H (< 5.00) mg/L B-Natriuretic Peptide ( - 100) pg/mL Total Protein 7.0 (6.4-8.9) g/dL Albumin 3.7 (3.2-5.2) g/dL Globulin 3.3 (2-4) g/dL Albumin/Globulin Ratio 1.1 (1-3) Urine Color Urine Appearance Urine pH (5-9) Ur Specific [place] (1.010-1.030) Urine Protein (Negative) Urine Ketones (Negative) Urine Blood (Negative) Urine Nitrate (Negative) Urine Bilirubin (Negative) Urine Urobilinogen (Negative) Ur Leukocyte Esterase (Negative) Urine Glucose (Negative) Influenza A (Rapid) (Negative) Influenza B (Rapid) (Negative) 04/18/17 04/18/17 04/18/17 Range/Units 08:04 08:04 08:28 WBC (3.5-10.8) 10^3/ul RBC (4.0-5.4) 10^6/ul Hgb (12.0-16.0) g/dl Hct (35-47) % MCV (80-97) fL MCH (27-31) pg MCHC (31-36) g/dl RDW (10.5-15) % Plt Count (150-450) 10^3/ul MPV (7.4-10.4) um3 Neut % (Auto) (38-83) % Lymph % (Auto) (25-47) % [place] % (Auto) (1-9) % Eos % (Auto) (0-6) % Baso % (Auto) (0-2) % Absolute Neuts (auto) (1.5-7.7) 10^3/ul Absolute Lymphs (auto) (1.0-4.8) 10^3/ul Absolute Monos (auto) (0-0.8) 10^3/ul Absolute Eos (auto) (0-0.6) 10^3/ul Absolute Basos (auto) (0-0.2) 10^3/ul Absolute Nucleated RBC 10^3/ul Nucleated RBC % INR (Anticoag Therapy) 0.94 (0.77-1.02) APTT 28.2 (26.0-36.3) seconds ABG pH (7.35-7.45) ABG pCO2 (35-45) mmHg ABG pO2 (80-100) mmHg ABG HCO3 (19-31) mmol/L ABG O2 Saturation (95-98) % ABG Base Excess (-2.0-2.0) Sodium (133-145) mmol/L Potassium (3.5-5.0) mmol/L Chloride (101-111) mmol/L Carbon Dioxide (22-32) mmol/L Anion Gap (2-11) mmol/L BUN (6-24) mg/dL Creatinine (0.51-0.95) mg/dL Est GFR ( Amer) (>60) Est GFR (Non-Af Amer) (>60) BUN/Creatinine Ratio (8-20) Glucose (70-100) mg/dL Lactic Acid (0.5-2.0) mmol/L Calcium (8.6-10.3) mg/dL Total Bilirubin (0.2-1.0) mg/dL AST (13-39) U/L ALT (7-52) U/L Alkaline Phosphatase (34-104) U/L Total Creatine Kinase (10-223) U/L CK-MB (CK-2) (0.6-6.3) ng/mL Troponin I (<0.04) ng/mL C-Reactive Protein (< 5.00) mg/L B-Natriuretic Peptide 495 H ( - 100) pg/mL Total Protein (6.4-8.9) g/dL Albumin (3.2-5.2) g/dL Globulin (2-4) g/dL Albumin/Globulin Ratio (1-3) Urine Color Urine Appearance Urine pH (5-9) Ur Specific [place] (1.010-1.030) Urine Protein (Negative) Urine Ketones (Negative) Urine Blood (Negative) Urine Nitrate (Negative) Urine Bilirubin (Negative) Urine Urobilinogen (Negative) Ur Leukocyte Esterase (Negative) Urine Glucose (Negative) Influenza A (Rapid) Negative (Negative) Influenza B (Rapid) Negative (Negative) 04/18/17 04/18/17 Range/Units 09:02 09:20 WBC (3.5-10.8) 10^3/ul RBC (4.0-5.4) 10^6/ul Hgb (12.0-16.0) g/dl Hct (35-47) % MCV (80-97) fL MCH (27-31) pg MCHC (31-36) g/dl RDW (10.5-15) % Plt Count (150-450) 10^3/ul MPV (7.4-10.4) um3 Neut % (Auto) (38-83) % Lymph % (Auto) (25-47) % [place] % (Auto) (1-9) % Eos % (Auto) (0-6) % Baso % (Auto) (0-2) % Absolute Neuts (auto) (1.5-7.7) 10^3/ul Absolute Lymphs (auto) (1.0-4.8) 10^3/ul Absolute Monos (auto) (0-0.8) 10^3/ul Absolute Eos (auto) (0-0.6) 10^3/ul Absolute Basos (auto) (0-0.2) 10^3/ul Absolute Nucleated RBC 10^3/ul Nucleated RBC % INR (Anticoag Therapy) (0.77-1.02) APTT (26.0-36.3) seconds ABG pH 7.39 (7.35-7.45) ABG pCO2 40 (35-45) mmHg ABG pO2 71 L (80-100) mmHg ABG HCO3 24.3 (19-31) mmol/L ABG O2 Saturation 97.6 (95-98) % ABG Base Excess -0.7 (-2.0-2.0) Sodium (133-145) mmol/L Potassium (3.5-5.0) mmol/L Chloride (101-111) mmol/L Carbon Dioxide (22-32) mmol/L Anion Gap (2-11) mmol/L BUN (6-24) mg/dL Creatinine (0.51-0.95) mg/dL Est GFR ( Amer) (>60) Est GFR (Non-Af Amer) (>60) BUN/Creatinine Ratio (8-20) Glucose (70-100) mg/dL Lactic Acid (0.5-2.0) mmol/L Calcium (8.6-10.3) mg/dL Total Bilirubin (0.2-1.0) mg/dL AST (13-39) U/L ALT (7-52) U/L Alkaline Phosphatase (34-104) U/L Total Creatine Kinase (10-223) U/L CK-MB (CK-2) (0.6-6.3) ng/mL Troponin I (<0.04) ng/mL C-Reactive Protein (< 5.00) mg/L B-Natriuretic Peptide ( - 100) pg/mL Total Protein (6.4-8.9) g/dL Albumin (3.2-5.2) g/dL Globulin (2-4) g/dL Albumin/Globulin Ratio (1-3) Urine Color Straw Urine Appearance Clear Urine pH 5.0 (5-9) Ur Specific [place] 1.003 L (1.010-1.030) Urine Protein Negative (Negative) Urine Ketones Negative (Negative) Urine Blood Negative (Negative) Urine Nitrate Negative (Negative) Urine Bilirubin Negative (Negative) Urine Urobilinogen Negative (Negative) Ur Leukocyte Esterase Negative (Negative) Urine Glucose Negative (Negative) Influenza A (Rapid) (Negative) Influenza B (Rapid) (Negative) Assess/Plan/Problems-Billing Assessment: 82 yo F with h/o COPD (not on 02 at home), CAD (RCA at 70% in 01/2016-no stents) , breast ca (s/p mastectomy), hemolytic anemia(s/p splenectomy), nephrectomy presents with c/o SOB - Patient Problems (1) COPD (chronic obstructive pulmonary disease) Comment: patient continues to smoke -counseled x 5 min to stop In exacerbation-pt agreed to tx with Solu Medrol, cont Azithro, start flutter valve (2) CAD (coronary artery disease) Comment: Cath in 2016 showed RCA at 70%-managed medically: cont ASA/lipitor/BB (3) Dementia Comment: Cognitive impairment with h/o . Pt's PCP advised againts benzodiazepine use (4) Diarrhea Comment: chronic, due to IBS. Pt has had up to 7 BM's a day at baseline-uses Imodium prn (5) Aortic stenosis Comment: mod according to Echo (6) DVT prophylaxis Comment: HSQ Status and Disposition: OBV will be changed to inpatient
[2017-04-19] MEDS: methylPREDNISolone SOD 40 MG* 1 ML VIAL IV SCH ×2 (09:25→22:09)
[2017-04-19] MEDS: HYDROcodone/ACETAMIN 5-325 MG* 1 TAB PO PRN ×2 (09:35→22:41)
[2017-04-19] MEDS: Azithromycin IV(*) 500 MG in NS 0.9% 250 ML* 250 ML IVPB SCH (13:12)
[2017-04-19] MEDS: Atorvastatin* 80 MG TAB PO SCH (22:06)
[2017-04-19] MEDS: Mirtazapine TAB* 15 MG PO SCH (22:07)
[2017-04-19] MEDS: Montelukast Sodium TAB* 10 MG PO SCH (22:07)
[2017-04-20 05:26] LABS: ABS Basophils 0.1 10^3/ul (0-0.2); ABS Eosinophils 0 10^3/ul (0-0.6); ABS Lymphocytes 2.1 10^3/ul (1.0-4.8); ABS Monocytes 0.3 10^3/ul (0-0.8); ABS Neutrophils 9.2 10^3/ul (1.5-7.7); ABS Nucleated RBC 0 10^3/ul; Eosinophil % 0 % (0-6); Hematocrit 29 % (35-47); Hemoglobin 10.4 g/dl (12.0-16.0); Lymphocyte % 17.8 % (25-47); Mean Corpuscular HGB Conc 36 g/dl (31-36); Mean Corpuscular Hemoglobin 33 pg (27-31); Mean Corpuscular Volume 91 fL (80-97); Mean Platelet Volume 9 um3 (7.4-10.4); Nucleated Red Blood Cells % 0.1; Platelet Count 271 10^3/ul (150-450); Red Blood Count 3.19 10^6/ul (4.0-5.4); Red Cell Distribution Width 16 % (10.5-15); White Blood Count 11.7 10^3/ul (3.5-10.8)
[2017-04-20 05:37] LABS: EGFR Non-African American 63.9 (>60)
[2017-04-20] MEDS: Levothyroxine TAB* 25 MCG TAB PO SCH (05:56)
[2017-04-20] MEDS: Heparin VIAL(*) 5000 UNITS/ML VIAL (FIVE THOUSAND) SUBCUT SCH (05:57)
[2017-04-20] MEDS: Umeclidin 62.5 MDI(NF) 1 INH MDI INH SCH (08:14)
[2017-04-20] MEDS: Fluticasone NASAL SPRAY 50MCG* 16 gm SPRAY BTL BOTH NARES SCH (08:17)
[2017-04-20] MEDS: methylPREDNISolone SOD 40 MG* 1 ML VIAL IV SCH (08:17)
[2017-04-20] MEDS: Gabapentin CAP(*) 300 MG PO SCH (08:18)
[2017-04-20] MEDS: Omeprazole CAP* 20 MG PO SCH (08:18)
[2017-04-20] MEDS: amLODIPine TAB* 5 MG PO SCH (08:18)
[2017-04-20] MEDS: Aspirin EC Low Dose* 81 MG TAB.EC PO SCH (08:18)
[2017-04-20] MEDS: Cyanocobalamin TAB* 500 MCG PO SCH (08:18)
[2017-04-20] MEDS: Metoprolol Tartrate TAB* 25 MG PO SCH (08:18)
[2017-04-20] MEDS: Multivitamins/Minerals TAB PO SCH (08:18)
[2017-04-20] MEDS: Lactobacillus Acidophilu (GG)* 1 CAP CAP PO SCH (08:18)
[2017-04-20] MEDS: Folic Acid TAB* 1 MG PO SCH (08:18)
[2017-04-20] MEDS ORDERED: Azithromycin TAB* 250 MG PO SCH (09:00)
[2017-04-20] MEDS ORDERED: Tiotropium CAP.INH* CAP.INH/18 MCG (USE ORDER SET !) INH SCH (10:14)
[2017-04-20] MEDS: HYDROcodone/ACETAMIN 5-325 MG* 1 TAB PO PRN (11:34)
[2017-04-20 14:42] VITALS: BP 116/45
--- NOTE | 2017-04-21 01:26 | DS ---
CC: Dr. Burciaga * DISCHARGE SUMMARY: DATE OF ADMISSION: 04/18/17 DATE OF DISCHARGE: 04/20/17 PRIMARY CARE PROVIDER: Dr. Burciaga. DISCHARGE DIAGNOSES: 1. Chest pain with so far negative cardiac workup, negative troponin and transthoracic echocardiogram. 2. COPD exacerbation. SECONDARY DIAGNOSES: 1. COPD, not oxygen dependent prior to 2 days hospitalization. Currently, we are evaluating patient for oxygen at home at discharge. 2. Hypertension. 3. Hyperlipidemia. 4. History of coronary artery disease, status post cardiac catheterization in January 2016, which showed 65% disease in the LAD, 40% to 45% in circumflex, and 65% to 70% in RCA and no stents placed. 5. History of hemolytic anemia, status post splenectomy in 2014. 6. Hypothyroidism. 7. 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 8. Breast cancer, status post mastectomy and chemotherapy. 9. Irritable bowel syndrome. 10. Diarrhea. 11. Anxiety. 12. Chronic pain. MEDICATIONS AT DISCHARGE: Include: 1. Prednisone at 50 mg daily for a total of 4 days and stop. 2. Azithromycin 250 mg p.o. daily for 3 days total and then stop. 3. Albuterol inhaler 2 puffs every 4 hours p.r.n. 4. Norvasc 10 mg daily. 5. Aspirin 81 mg daily. 6. Lipitor 80 mg at bedtime. 7. BuSpar 5 mg b.i.d. 8. Fioricet 1 tablet daily p.r.n. 9. Celebrex 100 mg daily. 10. Vitamin B12 500 mcg daily. 11. Bentyl 10 mg t.i.d. p.r.n. 12. Ergocalciferol 50,000 units p.o. monthly. 13. Chaya 180 mg daily. 14. Fluticasone nasal spray 1 spray both nostrils daily. 15. Folvite 1 mg daily. 16. Neurontin 600 mg 2 times a day. 17. Mucinex 600 mg b.i.d. 18. Hydrocodone/acetaminophen 5/325 mg 1 tablet b.i.d. p.r.n. 19. Synthroid 25 mcg daily. 20. Imodium 2 mg up to 4 times a day p.r.n. 21. Metoprolol tartrate 25 mg b.i.d. 22. Remeron 15 mg at bedtime. 23. Singulair 10 mg bedtime. 24. Multivitamin 1 tablet daily. 25. Omeprazole 20 mg daily. 26. Zofran on a p.r.n. basis. 27. MiraLAX 17 g daily p.r.n. 28. Probiotic 1 capsule daily. 29. Systane eye drops 0.6% in both eyes, a drop t.i.d. to 4 times a day p.r.n. 30. Incruse Ellipta 1 inhalation daily. DIAGNOSTIC STUDIES AND LABORATORY DATA: Studies performed during the hospital stay included: On 04/19/17, white blood cell count of 11.7, hemoglobin of 10.4, hematocrit 29, platelets of 271. Blood count on 04/18/17 showed pH of 7.39, pCO2 of 40, pO2 of 71, bicarb of 24. On 04/20/17 sodium of 136, potassium 4.8, chloride 104, carbon dioxide 30, BUN 22, creatinine 0.8. Alkaline phosphatase of 165 which is improved from prior and chronic. Serology was negative for influenza. Transthoracic echocardiogram obtained on 04/18/17 showed EF of 60% to 65% with a global left ventricular wall motion, conductivity within normal limits. Moderate aortic stenosis, moderate mitral regurgitation, moderate tricuspid regurgitation, moderate pulmonary hypertension. There were no significant changes compared to March 2016 echo. HOSPITALIZATION COURSE: Nai Walker is an 82-year-old female who presented to the hospital complaining of shortness breath and chest pain. She was admitted with a diagnosis of COPD exacerbation and bronchitis. She also complained of chest pain and her workup included negative troponins and echocardiogram. It shows no change comparing with 2017. In January 2016, the patient had cardiac catheterization which showed moderate coronary artery disease. She did not require stenting at that point. It appeared that the patient's shortness of breath and pain was localized in her neck and she demonstrated it every time I saw her for daily visits. It was basically due to a pattern of breathing against vocal cords that created a wheezing sound that caused the patient's discomfort. Also, the patient had multitude of complaints every time asked about her problems and issues. She has history of irritable bowel syndrome and apparently local gastroenterologists who diagnosed her with irritable bowel syndrome "are not interested in seeing her anymore" as per patient. She stated that she has problems still with multiple loose bowel movements a day for which she is being currently evaluated by Dr. Burciaga. Patient complains of shortness of breath despite her oxygen saturation being within normal limits. It appears to be related to anxiety. Patient was treated with Solu-Medrol throughout her hospital stay for COPD exacerbation and placed on prednisone at home. Please note that the patient stated that she is allergic to steroids at admission, but she had tolerated steroids well and her history of allergic reaction was "palpitations." She also tolerated azithromycin of which 5-day course she is going to finish at home. Patient has a rather poor short-term memory and she is a poor historian. I discussed her home situation with the patient's daughter, who stated that she visits the patient on a daily basis. Patient also is going to be set up with visiting nurse association at discharge. PHYSICAL EXAM AT THE TIME OF DISCHARGE: Blood pressure 113/53, heart rate of 67 and regular, respiratory rate 16, oxygen saturation 93% on room air. General : The patient is a very pleasant 82-year-old female, who is in on acute distress. Alert, awake and oriented x3 and rather a poor historian. HEENT: Head atraumatic, normocephalic. Eyes: Pupils equal, round, and reactive to light and accommodation. Oropharynx clear. Mucosa moist. Neck: Supple. No JVD. No bruits bilaterally. Cardiovascular: Regular rate and rhythm with 2/6 systolic ejection murmur with escalation at the right upper sternal border. Respiratory: Decreased breath sounds bilaterally with scant bilateral mid lung wheezes. Abdomen: Soft and nontender. Bowel sounds present in all 4 quadrants. Extremities: There is no edema. Pulses +2 bilaterally. No clubbing or cyanosis. On neuro evaluation, speech is clear. Cranial nerves II through XII grossly intact. Motor strength is 5/5 bilaterally. Please note that this is a short summary of patient's hospitalization, please refer to further medical records for details. TIME SPENT: Approximately 45 minutes was spent on patient's discharge. [id number]/[facility] #: [id number] SINDI
[2017-04-21] MEDS ORDERED: Spiriva Inhaler DEVICE* 1 EACH DEVICE INH ONE (09:00)
== END 2017-04-20 13:54 | disposition home or self-care (01) | DRG 192 ==
LOC: ED 05:57 → MEDTELE 10:58 → OBSVTOIN 04-19 09:15
PROVIDERS: ADMIT Internal Medicine; ATTEND Internal Medicine
DX: J44.1 Chronic obstructive pulmonary disease with (acute) exacerbation (principal); I27.20 Pulmonary hypertension, unspecified; I08.3 Combined rheumatic disorders of mitral, aortic and tricuspid valves; R07.9 Chest pain, unspecified; I25.10 Atherosclerotic heart disease of native coronary artery without angina pectoris; I10 Essential (primary) hypertension; E78.5 Hyperlipidemia, unspecified; E03.9 Hypothyroidism, unspecified; K58.9 Irritable bowel syndrome, unspecified; F41.9 Anxiety disorder, unspecified; G89.29 Other chronic pain; J40 Bronchitis, not specified as acute or chronic; F03.90 Unspecified dementia, unspecified severity, without behavioral disturbance, psychotic disturbance, mood disturbance, and anxiety; F17.200 Nicotine dependence, unspecified, uncomplicated; K21.9 Gastro-esophageal reflux disease without esophagitis; M19.90 Unspecified osteoarthritis, unspecified site; M81.0 Age-related osteoporosis without current pathological fracture; H26.9 Unspecified cataract; F17.210 Nicotine dependence, cigarettes, uncomplicated; Z79.82 Long term (current) use of aspirin; Z90.5 Acquired absence of kidney; Z85.3 Personal history of malignant neoplasm of breast; Z88.1 Allergy status to other antibiotic agents; Z87.442 Personal history of urinary calculi; Z90.81 Acquired absence of spleen; Z83.6 Family history of other diseases of the respiratory system; Z88.2 Allergy status to sulfonamides
CPT/HCPCS: 36415; 36600; 71046; 80053; 81003; 82550; 82553; 82803; 83605; 83880; 84484; 85025; 85610; 85730; 86140; 87040; 87070; 87106; 87205; 87502; 93005; 93306; 94760; 99284; A9270-GY; C8929; G0378; J0456; J1644; J1940; J2920

== ENCOUNTER 2017-07-28 04:58 | Inpatient (IN) | payer MEDICARE, MEDICAID ==
[2017-07-28] MEDS ORDERED: Albuterol/Ipratropium NEB.SOL* Albuterol 2.5 MG/Ipratropium 0.5 MG 3 ML INH ONE (05:15)
[2017-07-28] MEDS ORDERED: NS 0.9% 1000 ML* 1,000 ML IV SCH ×2 (05:15→07:00)
[2017-07-28] MEDS ORDERED: cefTRIAXone(*) 1 GM in NS 0.9% 50 ML* 50 ML IVPB ONE (05:17)
[2017-07-28] MEDS ORDERED: Azithromycin IV(*) 500 MG in NS 0.9% 250 ML* 250 ML IVPB ONE (05:17)
[2017-07-28 06:06] LABS: ABS Basophils 0.2 10^3/ul (0-0.2); ABS Eosinophils 0.1 10^3/ul (0-0.6); ABS Lymphocytes 1.9 10^3/ul (1.0-4.8); ABS Monocytes 1.1 10^3/ul (0-0.8); ABS Neutrophils 14.3 10^3/ul (1.5-7.7); ABS Nucleated RBC 0 10^3/ul; Eosinophil % 0.5 % (0-6); Hematocrit 37 % (35-47); Hemoglobin 12.5 g/dl (12.0-16.0); Lymphocyte % 10.9 % (25-47); Mean Corpuscular HGB Conc 34 g/dl (31-36); Mean Corpuscular Hemoglobin 31 pg (27-31); Mean Corpuscular Volume 90 fL (80-97); Nucleated Red Blood Cells % 0.1; Platelet Count 316 10^3/ul (150-450); Red Blood Count 4.07 10^6/ul (4.0-5.4); Red Cell Distribution Width 16 % (10.5-15); White Blood Count 17.6 10^3/ul (3.5-10.8)
[2017-07-28 06:15] LABS: INR 0.85 (0.77-1.02)
[2017-07-28 06:24] LABS: EGFR Non-African American 58.3 (>60)
[2017-07-28] MEDS ORDERED: Ondansetron INJ* 2 MG/ML VIAL IV PRN (06:46)
[2017-07-28] MEDS ORDERED: Albuterol 2.5 MG/3 ML NEB.SOL* (0.083%) INH PRN (06:46)
[2017-07-28] MEDS ORDERED: Levofloxacin 750 MG IVPREMIX(* 750 MG/150 ML BAG IVPB SCH (07:00)
[2017-07-28] MEDS ORDERED: Levofloxacin 750 MG IVPREMIX(* 750 MG/150 ML BAG IVPB ONE (07:00)
--- NOTE | 2017-07-28 07:04 | ED ---
Isa Gan Rebecca, scribed for Terence Byrnes MD on 07/28/17 at 0529 . Shortness of Breath - HPI Summary HPI Summary: Pt is an 82 y/o F BIBA who presents to ED c/o SOB. She has been having SOB characterized as dyspnea at rest for about 5 days, gradually worsening. Sx alleviated by O2, aggravated by nothing, unchanged by albuterol inhaler. Additionally c/o CP since earlier today and productive cough with yellow sputum. Denies edema and fever. Was on Zithromax about 2 months ago. EMS report that her O2 saturation was 82% on RA upon their arrival on scene. PMHx asthma, COPD, and DVT. Takes 81 mg ASA. - History of Current Complaint Chief Complaint: EDShortnessOfBreath Hx Obtained From: Patient Onset/Duration: Lasting Days - 5 days, Still Present Dyspnea At: Rest Aggrevating Factors: Nothing Alleviating Factors: Oxygen Associated Signs & Symptoms: Cough (Productive) - Allergy/Home Medications Allergies/Adverse Reactions: Allergies Allergy/AdvReac Type Severity Reaction Status Date / Time carbamazepine Allergy Unknown Verified 07/28/17 05:24 Reaction Details cetirizine [From Zyrtec] Allergy Unknown Verified 07/28/17 05:27 Reaction Details divalproex sodium Allergy Unknown Verified 07/28/17 05:26 [From Depakote] Reaction Details iodine Allergy Unknown Verified 07/28/17 05:25 Reaction Details latex Allergy Unknown Verified 07/28/17 05:26 Reaction Details olanzapine [From Zyprexa] Allergy Unknown Verified 07/28/17 05:26 Reaction Details phenytoin [From Dilantin] Allergy Unknown Verified 07/28/17 05:25 Reaction Details prednisone Allergy Unknown Verified 07/28/17 05:25 Reaction Details Sulfa (Sulfonamide Allergy Unknown Verified 07/28/17 05:24 Antibiotics) Reaction Details Tetracyclines Allergy Unknown Verified 07/28/17 05:24 Reaction Details PMH/Surg Hx/FS Hx/Imm Hx Endocrine/Hematology History: Reports: Hx Thyroid Disease - HASHIMOTOS, Hx Anemia - CHRONIC HEMOLYTIC ANEMIA Denies: Hx Anticoagulant Therapy, Hx Diabetes Cardiovascular History: Reports: Hx Coronary Artery Disease, Hx Hypercholesterolemia, Hx Hypertension Denies: Hx Pacemaker/ICD Comment Only: Other Cardiovascular Problems/Disorders - HX OF MASTECTOMY Respiratory History: Reports: Hx Asthma, Hx Chronic Bronchitis - not chronic, Hx Chronic Obstructive Pulmonary Disease (COPD) - CAD, Hx Pneumonia, Other Respiratory Problems/Disorders - emphysema GI History: Reports: Hx Gastroesophageal Reflux Disease, Hx Hiatal Hernia, Hx Irritable Bowel, Hx Obstructive Bowel, Other GI Disorders - small bowel obstruction History: Reports: Hx Acute Renal Failure, Hx Kidney Stones, Hx Renal Disease - 1 KIDNEY, Other Problems/Disorders - renal disease Musculoskeletal History: Reports: Hx Arthritis - OSTEOARTHRITIS, Hx Osteoporosis Denies: Hx Rheumatoid Arthritis Sensory History: Reports: Hx Cataracts Denies: Hx Contacts or Glasses, Hx Hearing Aid Opthamlomology History: Reports: Hx Cataracts Denies: Hx Contacts or Glasses Neurological History: Reports: Hx Headaches - WITH ELEVATION IN BLOOD PRESSURE, Hx Migraine - WITH VALSALVAR MOVEMENT, Hx Seizures - BI-TEMPORAL INCOMPLETE FOCAL SEIZURES Psychiatric History: Reports: Hx Anxiety Denies: Hx Panic Disorder - Cancer History Cancer Type, 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 RIGHT NEPHRECTOMY Hx Anesthesia Reactions: Yes Infectious Disease History: No Infectious Disease History: Denies: Traveled Outside the [place] in Last 30 Days - Family History Known Family History: Positive: Respiratory Disease - COPD - Social History Alcohol Use: None Hx Substance Use: No Substance Use Type: Reports: None Hx Tobacco Use: Yes Smoking Status (MU): Heavy Every Day Tobacco Smoker Type: Cigarettes Amount Used/How Often: 1 ppd 50 yrs Length of Time of Smoking/Using Tobacco: 50 years Have You Smoked in the Last Year: Yes Review of Systems Negative: Fever Positive: Chest Pain Positive: Shortness Of Breath, Cough Negative: Edema All Other Systems Reviewed And Are Negative: Yes Physical Exam - Summary Physical Exam Summary: General: no pain distress, mild to moderate respiratory distress Skin: warm, color reflects adequate perfusion, dry Head: normal Eyes: EOMI, DENISE ENT: normal Neck: supple, nontender Respiratory: rhonchi bilaterally, breath sounds present Cardiovascular: RRR Abdomen: soft, nontender Bowel: present Musculoskeletal: normal, strength/ROM intact, no pedal edema Neurological: normal, sensory/motor intact, A&O x3 Psychological: affect/mood appropriate Triage Information Reviewed: Yes Vital Signs On Initial Exam: Initial Vitals Temp Pulse Resp BP Pulse Ox 98.9 F 76 20 176/81 98 07/28/17 05:20 07/28/17 05:20 07/28/17 05:20 07/28/17 05:20 07/28/17 05:20 Vital Signs Reviewed: Yes Diagnostics - Vital Signs Vital Signs Temp Pulse Resp BP Pulse Ox 07/28/17 05:20 98.9 F 76 20 176/81 98 - Laboratory Lab Results: Lab Results 07/28/17 07/28/17 07/28/17 Range/Units 05:36 05:37 05:37 WBC (3.5-10.8) 10^3/ul RBC (4.0-5.4) 10^6/ul Hgb (12.0-16.0) g/dl Hct (35-47) % MCV (80-97) fL MCH (27-31) pg MCHC (31-36) g/dl RDW (10.5-15) % Plt Count (150-450) 10^3/ul MPV (7.4-10.4) um3 Neut % (Auto) (38-83) % Lymph % (Auto) (25-47) % Ware % (Auto) (0-7) % Eos % (Auto) (0-6) % Baso % (Auto) (0-2) % Absolute Neuts (auto) (1.5-7.7) 10^3/ul Absolute Lymphs (auto) (1.0-4.8) 10^3/ul Absolute Monos (auto) (0-0.8) 10^3/ul Absolute Eos (auto) (0-0.6) 10^3/ul Absolute Basos (auto) (0-0.2) 10^3/ul Absolute Nucleated RBC 10^3/ul Nucleated RBC % INR (Anticoag Therapy) 0.85 (0.77-1.02) APTT 25.5 L (26.0-36.3) seconds D-Dimer, Quantitative < 200 (Less Than 230) ng/mL VBG pH 7.30 L (7.33-7.43) VBG pCO2 55 H (41-51) mmHg VBG pO2 36 (35-45) mmHg VBG HCO3 24.1 (24-28) mmol/L VBG O2 Saturation 76.0 (70-80) % VBG Base Excess -0.2 L (0-4) Sodium (139-145) mmol/L Potassium (3.5-5.0) mmol/L Chloride (101-111) mmol/L Carbon Dioxide (22-32) mmol/L Anion Gap (2-11) mmol/L BUN (6-24) mg/dL Creatinine (0.51-0.95) mg/dL Est GFR ( Amer) (>60) Est GFR (Non-Af Amer) (>60) BUN/Creatinine Ratio (8-20) Glucose (70-100) mg/dL Lactic Acid 0.7 (0.5-2.0) mmol/L Calcium (8.6-10.3) mg/dL Magnesium (1.9-2.7) mg/dL Total Bilirubin (0.2-1.0) mg/dL AST (13-39) U/L ALT (7-52) U/L Alkaline Phosphatase (34-104) U/L Total Creatine Kinase (10-223) U/L CK-MB (CK-2) (0.6-6.3) ng/mL Troponin I (<0.04) ng/mL C-Reactive Protein (< 5.00) mg/L B-Natriuretic Peptide ( - 100) pg/mL Total Protein (6.4-8.9) g/dL Albumin (3.2-5.2) g/dL Globulin (2-4) g/dL Albumin/Globulin Ratio (1-3) TSH (0.34-5.60) mcIU/mL [place] (0.6-1.2) mmol/L 07/28/17 07/28/17 07/28/17 Range/Units 05:37 05:37 05:37 WBC 17.6 H (3.5-10.8) 10^3/ul RBC 4.07 (4.0-5.4) 10^6/ul Hgb 12.5 (12.0-16.0) g/dl Hct 37 (35-47) % MCV 90 (80-97) fL MCH 31 (27-31) pg MCHC 34 (31-36) g/dl RDW 16 H (10.5-15) % Plt Count 316 (150-450) 10^3/ul MPV 8.0 (7.4-10.4) um3 Neut % (Auto) 81.2 (38-83) % Lymph % (Auto) 10.9 L (25-47) % Ware % (Auto) 6.5 (0-7) % Eos % (Auto) 0.5 (0-6) % Baso % (Auto) 0.9 (0-2) % Absolute Neuts (auto) 14.3 H (1.5-7.7) 10^3/ul Absolute Lymphs (auto) 1.9 (1.0-4.8) 10^3/ul Absolute Monos (auto) 1.1 H (0-0.8) 10^3/ul Absolute Eos (auto) 0.1 (0-0.6) 10^3/ul Absolute Basos (auto) 0.2 (0-0.2) 10^3/ul Absolute Nucleated RBC 0 10^3/ul Nucleated RBC % 0.1 INR (Anticoag Therapy) (0.77-1.02) APTT (26.0-36.3) seconds D-Dimer, Quantitative (Less Than 230) ng/mL VBG pH (7.33-7.43) VBG pCO2 (41-51) mmHg VBG pO2 (35-45) mmHg VBG HCO3 (24-28) mmol/L VBG O2 Saturation (70-80) % VBG Base Excess (0-4) Sodium 138 L (139-145) mmol/L Potassium 4.5 (3.5-5.0) mmol/L Chloride 106 (101-111) mmol/L Carbon Dioxide 28 (22-32) mmol/L Anion Gap 4 (2-11) mmol/L BUN 17 (6-24) mg/dL Creatinine 0.92 (0.51-0.95) mg/dL Est GFR ( Amer) 75.0 (>60) Est GFR (Non-Af Amer) 58.3 (>60) BUN/Creatinine Ratio 18.5 (8-20) Glucose 130 H (70-100) mg/dL Lactic Acid (0.5-2.0) mmol/L Calcium 9.3 (8.6-10.3) mg/dL Magnesium 2.0 (1.9-2.7) mg/dL Total Bilirubin 0.40 (0.2-1.0) mg/dL AST 33 (13-39) U/L ALT 26 (7-52) U/L Alkaline Phosphatase 184 H (34-104) U/L Total Creatine Kinase 131 (10-223) U/L CK-MB (CK-2) 5.6 (0.6-6.3) ng/mL Troponin I 0.01 (<0.04) ng/mL C-Reactive Protein 1.69 (< 5.00) mg/L B-Natriuretic Peptide 771 H ( - 100) pg/mL Total Protein 6.8 (6.4-8.9) g/dL Albumin 3.8 (3.2-5.2) g/dL Globulin 3.0 (2-4) g/dL Albumin/Globulin Ratio 1.3 (1-3) TSH 2.11 (0.34-5.60) mcIU/mL [place] < 0.10 L (0.6-1.2) mmol/L Result Diagrams: 07/28/17 05:37 07/28/17 05:37 Lab Statement: Any lab studies that have been ordered have been reviewed, and results considered in the medical decision making process. - Radiology CXR Xray Interpretation: Positive (See Comments) - Infiltrate on the right side. Radiology Interpretation Completed By: ED Physician - EKG 0626 Cardiac Rate: NL - 75 bpm EKG Rhythm: Sinus Rhythm ST Segment: Normal Ectopy: PACs Course/Dx - Course Course Of Treatment: ADMIT HOSPITALIST Assessment/Plan: Medications reviewed. Allergies noted. BP noted and advised to follow up with PCP. - Diagnoses Provider Diagnoses: HTN (hypertension), Pneumonia - Physician Notifications Discussed Care of Patient With: Pilar Caban Time Discussed With Above Provider: 06:06 Instructed by Provider To: Other - Accepts pt for admission. Discharge - Sign-Out/Discharge Documenting (check all that apply): Discharge/Admit/Transfer - Admit - Discharge Plan Condition: Stable Disposition: ADMITTED TO [facility] - Billing Disposition and Condition Condition: STABLE Disposition: [facility] [place] The documentation as recorded by the Isa conner Rebecca accurately reflects the service I personally performed and the decisions made by , Terence Byrnes MD.
--- NOTE | 2017-07-28 08:06 | RAD ---
INDICATION: Shortness of breath and cough COMPARISON: Chest x-ray April 18, 2017 TECHNIQUE: Single AP portable view of the chest was obtained. FINDINGS: Image quality is compromised due to the relative inferiority of a portable chest x-ray. The heart and mediastinum exhibit normal size and contour. There is coarse calcification overlying the arch of the aorta. Similar the prior chest x-ray there is diffuse mildly increased density of the parenchyma. Otherwise the lungs are grossly clear. There is no evidence of a large pleural effusion. Visualized bones are normal for the patient's age. IMPRESSION: No radiographic evidence for acute cardiopulmonary abnormality on this portable chest x-ray.
[2017-07-28] MEDS: Mometasone/Formoter 200/5 MDI INH SCH ×2 (08:53→20:58)
[2017-07-28] MEDS: Albuterol/Ipratropium NEB.SOL* Albuterol 2.5 MG/Ipratropium 0.5 MG 3 ML INH SCH ×2 (08:53→12:02)
[2017-07-28] MEDS: Gabapentin CAP(*) 300 MG PO SCH ×3 (10:21→20:43)
[2017-07-28] MEDS: Lactobacillus Acidophilus* 1 TAB PO SCH (10:21)
[2017-07-28] MEDS: Losartan TAB* 25 MG PO SCH (10:22)
[2017-07-28] MEDS: Folic Acid TAB* 1 MG PO SCH (10:22)
[2017-07-28] MEDS: Metoprolol Tartrate TAB* 25 MG PO SCH ×2 (10:23→20:47)
[2017-07-28] MEDS: HYDROcodone/ACETAMIN 5-325 MG* 1 TAB PO PRN ×2 (10:23→18:24)
[2017-07-28] MEDS: Multivitamins/Minerals TAB PO SCH (10:23)
[2017-07-28] MEDS: Omeprazole CAP* 20 MG PO SCH (10:23)
[2017-07-28] MEDS: Aspirin EC TAB* 81 MG TAB.EC PO SCH (10:23)
[2017-07-28] MEDS: amLODIPine TAB* 5 MG PO SCH (10:23)
[2017-07-28] MEDS: Lidocaine PATCH 5%* 1 PATCH TRANSDERM SCH (10:23)
[2017-07-28] MEDS: PTO: Fexofenadine (NF) 180 MG TAB PO SCH (10:23)
[2017-07-28] MEDS: Levothyroxine TAB* 25 MCG TAB PO SCH (10:23)
[2017-07-28] MEDS: Nicotine PATCH 21 MG/24 HR* PATCH TRANSDERM SCH (10:24)
[2017-07-28 10:45] LABS: EGFR Non-African American 71.6 (>60)
--- NOTE | 2017-07-28 13:24 | HP ---
CC: Dr. Burciaga * HISTORY AND PHYSICAL: DATE OF ADMISSION: 07/28/17 PRIMARY CARE PROVIDER: Dr. Burciaga. ATTENDING PHYSICIAN WHILE IN THE HOSPITAL: Pilar Caban MD * (report dictated by Collin Hernandez NP). CHIEF COMPLAINT: 1. Cough. 2. Shortness of breath. HISTORY OF PRESENT ILLNESS: Ms. Walker is an 82-year-old female patient with multiple medical problems. She has a history of COPD, CAD, history of NSTEMI, IBS, breast cancer, anxiety, hemolytic anemia, arthritis, chronic pain, hypertension, hypothyroidism, hyperlipidemia, aortic stenosis, GERD, and history of DVT. She comes in today, she states that over the last several days she has had progressive worsening shortness of breath. She states she has been coughing. She has been bringing up a thick green yellowish type sputum. She has been having chills. She has been having pain in her chest when she takes a deep breath. She has been feeling fatigued, weak, and she has noted today that when she was coughing, she was having a lot more chest discomfort, sharp stabbing type pain. She states that her breathing was not getting any better. She denies having any leg swelling. She states she has been trying to take her nebulizers as prescribed, but unfortunately, they just have not been helping her. She was on a recent antibiotic, azithromycin, but she states this did not help her. She also does complain that prior to taking the antibiotic, she was having some liquid diarrhea 2 to 3 times a day. There have been no reports of abdominal pain. No reports of vomiting or nausea. She denies having any sore throat, rhinorrhea, or congestion. She was concerned because of the worsening breathing, she pressed her life alert button today and came into the ED for further evaluation. While in the ED, there was a concern for pneumonia also signs of sepsis. Because of these findings, we were asked to evaluate for admission. PAST MEDICAL HISTORY: Significant for; 1. COPD. 2. CAD. 3. NSTEMI. 4. History of IBS. 5. Breast cancer. 6. Anxiety. 7. Hemolytic anemia. 8. Arthritis. 9. Chronic pain. 10. Hypertension. 11. Hyperlipidemia. 12. Hypothyroidism. 13. Aortic stenosis. 14. GERD. 15. History of DVT. PAST SURGICAL HISTORY: 1. She has had heart catheterizations. 2. She has had a mastectomy. 3. Splenectomy. 4. Hysterectomy. 5. Bladder surgeries. 6. Appendectomy. 7. Arthroscopies of bilateral knees. 8. Carpal tunnel. 9. She has had a nephrectomy. 10. Ankle surgery. HOME MEDICATIONS: Include; 1. Lidoderm patch 1 patch topically daily. 2. Losartan 25 mg daily. 3. Aspirin 81 mg daily. 4. Ventolin 2 puffs inhaled every 4 to 6 hours as needed. 5. B12 of 500 mcg p.o. daily. 6. Fioricet 1 tablet p.o. daily as needed. 7. Lipitor 80 mg at bedtime. 8. Chaya 180 mg daily. 9. Ergocalciferol 50,000 units p.o. monthly. 10. Gabapentin 600 mg p.o. t.i.d. 11. Folic acid 1 mg p.o. daily. 12. Flonase 1 to 2 sprays both nares daily. 13. Imodium 2 mg p.o. 4 times a day as needed. 14. Synthroid 25 mcg p.o. daily. 15. Probiotic 1 capsule p.o. daily. 16. [place] 1 tablet p.o. b.i.d. as needed. 17. Singulair 10 mg p.o. at bedtime. 18. Remeron 15 mg at bedtime. 19. Lopressor 25 mg p.o. b.i.d. 20. Zofran 8 mg every 6 hours as needed. 21. Prilosec 20 mg p.o. daily. 22. Multivitamin 1 tablet daily. 23. Incruse Ellipta 1 inhalation inhaled daily. 24. Systane eye drops 1 drop both eyes 3 to 4 times a day as needed. 25. MiraLAX 17 g p.o. daily as needed. 26. Celebrex 200 mg p.o. daily. 27. BuSpar 10 mg p.o. b.i.d. as needed. 28. Norvasc 10 mg p.o. daily. 29. Mucinex 600 mg p.o. b.i.d. as needed. ALLERGIES TO MEDICATIONS: Include; 1. TEGRETOL. 2. CETIRIZINE. 3. DEPAKOTE. 4. IODINE. 5. LATEX. 6. ZYPREXA. 7. DILANTIN. 8. PREDNISONE, which only causes fluid retention. 9. SULFA. 10. TETRACYCLINE. FAMILY HISTORY: Mother had a history of dementia. Father had a history of Parkinson. SOCIAL HISTORY: She is still smoking today. She has been smoking for 50 plus years. She states she has cut back down to about half a pack a day. She does not drink alcohol. Surrogate decision maker is her daughter. REVIEW OF SYSTEMS: There is no documented fever. She did admit to having chills. She denies having any double vision. There is no ear discharge. She denies having any rhinorrhea. There is no sore throat, no thyroid enlargement. She did admit to having chest pain, sharp stabbing pain when taking a deep breath or coughing. She did have dyspnea on exertion, but there is no orthopnea. No nocturnal dyspnea. There is no abdominal pain. No nausea, no vomiting, no dysuria, no frequency. There was no seizure, no loss of consciousness, no pruritus and no skin ulcerations. Review of 14 systems completed, all others negative. PHYSICAL EXAMINATION GENERAL: At this time, Mrs. Walker is an 82-year-old female patient, she is sitting in the ED stretcher. She does not appear to be in any acute distress. VITAL SIGNS: Blood pressure 150/76, pulse 70, respirations 18, O2 sat 98% on 3 L, temperature 98.9. HEENT: Head is atraumatic and normocephalic. Eyes: EOMs are intact. Sclerae anicteric and not pale. Throat: Oral mucosa appears to be dry. No oropharyngeal erythema. NECK: Supple. LUNGS: She did have rhonchi, coarse breath sounds, particularly in the right base and right upper lobe. She had equal diaphragmatic expansion. HEART: Sounds S1 and S2. Regular rate and rhythm. No murmurs, rubs, or gallops. ABDOMEN: Soft, flat, nontender. Bowel sounds present. EXTREMITIES: Pulses were 2+ throughout. She had no peripheral edema. She is moving all 4 extremities with 5/5 strength. NEUROLOGIC: She is awake, alert. She is oriented x3. Tongue midline. Brusher Warp were equal. No gross focal deficits. SKIN: Intact. LABORATORY DATA: WBC 17.6, RBC of 4.07, hemoglobin of 12.5, hematocrit of 37, and platelet count of 316. INR was 0.85, PTT 25.5. D-dimer less than 200. VBG : PH 7.30, pCO2 of 55, bicarbonate 24. Chemistry reveals sodium 138, potassium of 4.5, chloride 106, bicarb 28, BUN 17, creatinine 0.92, glucose 130 , lactate 0.7, calcium 9.3, total bilirubin 0.4, magnesium 2.0, AST 33, ALT 26, alkaline phosphatase 184, CK 131, CK-MB 5.6, troponin 0.01, CRP of 1.61. BNP of 771. Albumin is 3.8. TSH pending. Toxicology showed a lithium level that was negative. She did have a chest x-ray obtained today and also an EKG. The EKG does show a normal sinus rhythm with a rate of 75. She does have PACs. There was no ST elevations or T-wave inversions. Previous EKGs appear to be similar with the exception of PACs now. Chest x-ray under my review, I do appreciate what appears to be infiltrate in the right base. No effusions are noted. Old medical records were reviewed. ASSESSMENT AND PLAN: Ms. Walker is an 82-year-old female patient coming into the ED today with complaints of progressively worsening shortness of breath, a cough that has been productive of mucopurulent sputum. She has been evaluated in the ED today. We were asked to evaluate for admission. She will be admitted under inpatient status. 1. Pneumonia with chronic obstructive pulmonary disease exacerbation. Based on chest x-ray, the patient and the fact that she has elevated white count. I am concerned that she has pneumonia. I will go ahead and put her on Levaquin as she has already been on azithromycin. I will hydrate her; she did receive fluids here in the ED. For the time being, I will do normal saline at 100 an hour and we will continue to follow. Her blood cultures have been sent. Sputum culture legionella antigen, Strep pneumo antigen. I placed her on nebs standing and inhaled steroid. If she does not improve then we can consider adding p.o. steroids, but she is not having any wheezing currently. I will continue with aggressive pulmonary toileting. We will continue standing nebs and we will continue to follow. 2. History of coronary artery disease. Continue meds as prescribed. The chest pain she is having sounds like it is pleuritic, and she is having none now ; we will continue meds as prescribed. 3. History of irritable bowel syndrome. Continue with her meds as prescribed. 4. Breast cancer. Follow with her primary. 5. Anxiety. Continue supportive care. 6. History of hemolytic anemia. She is status post splenectomy. H and H are stable. We will follow. 7. Chronic pain. Continue meds as prescribed. 8. Arthritis. I wrote a p.r.n. Tylenol. 9. Hypertension. Continue her meds as prescribed. 10. Hypothyroidism. Continue Synthroid. 11. Hyperlipidemia. Continue statin therapy. 12. Aortic stenosis. Continue to follow. We will keep a good blood pressure on her and hydrate her appropriately. 13. Gastroesophageal reflux disease. Continue PPI therapy. 14. History of deep vein thrombosis. She will be on DVT prophylaxis. 15. Code status. Full code. 16. Fluids, electrolytes, and nutrition. She can have a heart-healthy diet. TIME SPENT: Time spent on admission was approximately 60 minutes; greater than half the time spent [id number] with the patient obtaining my history and physical, another half the time spent going over the plan of care with the patient and implementing the plan of care. I did discuss the plan of care with my attending, Dr. Caban. She is in agreement. COLLIN HERNANDEZ, AFSANEH [id number]/[facility] #: [id number] SINDI
[2017-07-28] MEDS: Heparin VIAL(*) 5000 UNITS/ML VIAL (FIVE THOUSAND) SUBCUT SCH ×2 (14:35→20:49)
[2017-07-28] MEDS ORDERED: Furosemide IV* 10 MG/ML VIAL (40 MG) IV ONE (14:43)
--- NOTE | 2017-07-28 14:46 | PN ---
Subjective Date of Service: 07/28/17 Interval History: Pt c/o SOB worse when lying down and nonproductive cough Objective Active Medications: Acetaminophen (Tylenol Tab*) 650 mg PO Q4H PRN PRN Reason: FEVER/PAIN Hydrocodone Bitart/Acetaminophen ([place] 5-325 Tab*) 1 tab PO BID PRN PRN Reason: PAIN Last Admin: 07/28/17 10:23 Dose: 1 tab Albuterol (Ventolin 2.5 Mg/3 Ml Neb.Harini*) 2.5 mg INH Q2H PRN PRN Reason: SOB/WHEEZING Albuterol/Ipratropium (Duoneb (Albuterol 2.5 Mg/Ipratropium 0.5 Mg)) 1 neb INH [id number] AWAKE PRN PRN Reason: WHEEZING Amlodipine Besylate (Norvasc Tab*) 10 mg PO DAILY [facility] Last Admin: 07/28/17 10:23 Dose: 10 mg Aspirin (Aspirin Ec Tab*) 81 mg PO DAILY [facility] Last Admin: 07/28/17 10:23 Dose: 81 mg Atorvastatin Calcium (Lipitor*) 80 mg PO BEDTIME [facility] Azithromycin (Zithromax Tab*) 250 mg PO DAILY [facility] Fexofenadine HCl (Chaya 180 (Nf)) 180 mg PO QAM KWAME PRN Reason: Protocol Last Admin: 07/28/17 10:23 Dose: Not Given Folic Acid (Folvite Tab*) 1 mg PO DAILY [facility] Last Admin: 07/28/17 10:22 Dose: 1 mg Furosemide (Lasix Iv*) 40 mg IV ONCE ONE Stop: 07/28/17 14:44 Gabapentin (Neurontin Cap(*)) 600 mg PO TID [facility] Last Admin: 07/28/17 14:34 Dose: 600 mg Heparin Sodium (Porcine) (Heparin Vial(*)) 5,000 units SUBCUT Q8HR [facility] Last Admin: 07/28/17 14:35 Dose: 5,000 units Lactobacillus Rhamnosus (Lactobacillus Acidophilus*) 1 tab PO DAILY [facility] Last Admin: 07/28/17 10:21 Dose: 1 tab Levothyroxine Sodium (Synthroid Tab*) 25 mcg PO 0600 [facility] Last Admin: 07/28/17 10:23 Dose: 25 mcg Lidocaine (Lidoderm 5% Patch*) 1 patch TRANSDERM DAILY [facility] Last Admin: 07/28/17 10:23 Dose: 1 patch Losartan Potassium (Cozaar Tab*) 25 mg PO DAILY [facility] Last Admin: 07/28/17 10:22 Dose: 25 mg Metoprolol Tartrate (Lopressor Tab*) 25 mg PO BID [facility] Last Admin: 07/28/17 10:23 Dose: 25 mg Mirtazapine (Remeron Tab*) 15 mg PO BEDTIME [facility] Mometasone Furoate/Formoterol Fumar (Dulera 200/5 Mdi*) 2 puff INH BID [facility] Last Admin: 07/28/17 08:53 Dose: 2 puff Montelukast Sodium (Singulair Tab*) 10 mg PO BEDTIME [facility] Multivitamins/Minerals (Theragran/Minerals Tab*) 1 tab PO DAILY [facility] Last Admin: 07/28/17 10:23 Dose: 1 tab Nicotine (Nicotine Patch 21 Mg/24 Hr*) 1 patch TRANSDERM DAILY@0800 [facility] Last Admin: 07/28/17 10:24 Dose: 1 patch Omeprazole (Prilosec Cap*) 20 mg PO QAM [facility] Last Admin: 07/28/17 10:23 Dose: 20 mg Ondansetron HCl (Zofran Inj*) 4 mg IV Q6H PRN PRN Reason: NAUSEA Pharmacy Profile Note (Lidocaine Patch Remove*) 1 note PATCH OFF 2100 [facility] Vital Signs - 8 hr 07/28/17 07/28/17 07/28/17 08:40 08:42 08:53 Temperature 98.2 F 97.4 F Pulse Rate 74 73 82 Respiratory 22 18 18 Rate Blood Pressure 143/58 124/74 (mmHg) O2 Sat by Pulse 98 97 98 Oximetry 07/28/17 07/28/17 07/28/17 10:21 10:23 12:11 Temperature 98.0 F Pulse Rate 68 Respiratory 18 18 18 Rate Blood Pressure 113/41 (mmHg) O2 Sat by Pulse 100 Oximetry 07/28/17 07/28/17 07/28/17 14:34 14:35 14:36 Temperature Pulse Rate Respiratory 18 18 18 Rate Blood Pressure (mmHg) O2 Sat by Pulse Oximetry Oxygen Devices in Use Now: Nasal Cannula Appearance: 82 yo f in nAD, aAOx3 Eyes: No Scleral Icterus, PERRLA Ears/Nose/Mouth/Throat: NL Teeth, Lips, Gums, Mucous Membranes Moist Neck: NL Appearance and Movements; NL JVP, Trachea Midline Respiratory: Symmetrical Chest Expansion and Respiratory Effort, - - b/l lower to mid lung rhonchi R>L Cardiovascular: RRR, - - 2/6 MOLLY at RUSB Abdominal: NL Sounds; No Tenderness; No Distention, No Hepatosplenomegaly Lymphatic: No Cervical Adenopathy Extremities: No Edema, No Clubbing, Cyanosis Skin: No Rash or Ulcers, No Nodules or Sclerosis Neurological: Alert and Oriented x 3, NL Muscle Strength and Tone Result Diagrams: 07/28/17 05:37 07/28/17 10:19 Additional Lab and Data: Lab Results 07/28/17 07/28/17 07/28/17 Range/Units 05:36 05:37 05:37 WBC (3.5-10.8) 10^3/ul RBC (4.0-5.4) 10^6/ul Hgb (12.0-16.0) g/dl Hct (35-47) % MCV (80-97) fL MCH (27-31) pg MCHC (31-36) g/dl RDW (10.5-15) % Plt Count (150-450) 10^3/ul MPV (7.4-10.4) um3 Neut % (Auto) (38-83) % Lymph % (Auto) (25-47) % [place] % (Auto) (0-7) % Eos % (Auto) (0-6) % Baso % (Auto) (0-2) % Absolute Neuts (auto) (1.5-7.7) 10^3/ul Absolute Lymphs (auto) (1.0-4.8) 10^3/ul Absolute Monos (auto) (0-0.8) 10^3/ul Absolute Eos (auto) (0-0.6) 10^3/ul Absolute Basos (auto) (0-0.2) 10^3/ul Absolute Nucleated RBC 10^3/ul Nucleated RBC % INR (Anticoag Therapy) 0.85 (0.77-1.02) APTT 25.5 L (26.0-36.3) seconds D-Dimer, Quantitative < 200 (Less Than 230) ng/mL VBG pH 7.30 L (7.33-7.43) VBG pCO2 55 H (41-51) mmHg VBG pO2 36 (35-45) mmHg VBG HCO3 24.1 (24-28) mmol/L VBG O2 Saturation 76.0 (70-80) % VBG Base Excess -0.2 L (0-4) Sodium (139-145) mmol/L Potassium (3.5-5.0) mmol/L Chloride (101-111) mmol/L Carbon Dioxide (22-32) mmol/L Anion Gap (2-11) mmol/L BUN (6-24) mg/dL Creatinine (0.51-0.95) mg/dL Est GFR ( Amer) (>60) Est GFR (Non-Af Amer) (>60) BUN/Creatinine Ratio (8-20) Glucose (70-100) mg/dL Lactic Acid 0.7 (0.5-2.0) mmol/L Calcium (8.6-10.3) mg/dL Magnesium (1.9-2.7) mg/dL Total Bilirubin (0.2-1.0) mg/dL AST (13-39) U/L ALT (7-52) U/L Alkaline Phosphatase (34-104) U/L Total Creatine Kinase (10-223) U/L CK-MB (CK-2) (0.6-6.3) ng/mL Troponin I (<0.04) ng/mL C-Reactive Protein (< 5.00) mg/L B-Natriuretic Peptide ( - 100) pg/mL Total Protein (6.4-8.9) g/dL Albumin (3.2-5.2) g/dL Globulin (2-4) g/dL Albumin/Globulin Ratio (1-3) TSH (0.34-5.60) mcIU/mL [place] (0.6-1.2) mmol/L 07/28/17 07/28/17 07/28/17 Range/Units 05:37 05:37 05:37 WBC 17.6 H (3.5-10.8) 10^3/ul RBC 4.07 (4.0-5.4) 10^6/ul Hgb 12.5 (12.0-16.0) g/dl Hct 37 (35-47) % MCV 90 (80-97) fL MCH 31 (27-31) pg MCHC 34 (31-36) g/dl RDW 16 H (10.5-15) % Plt Count 316 (150-450) 10^3/ul MPV 8.0 (7.4-10.4) um3 Neut % (Auto) 81.2 (38-83) % Lymph % (Auto) 10.9 L (25-47) % [place] % (Auto) 6.5 (0-7) % Eos % (Auto) 0.5 (0-6) % Baso % (Auto) 0.9 (0-2) % Absolute Neuts (auto) 14.3 H (1.5-7.7) 10^3/ul Absolute Lymphs (auto) 1.9 (1.0-4.8) 10^3/ul Absolute Monos (auto) 1.1 H (0-0.8) 10^3/ul Absolute Eos (auto) 0.1 (0-0.6) 10^3/ul Absolute Basos (auto) 0.2 (0-0.2) 10^3/ul Absolute Nucleated RBC 0 10^3/ul Nucleated RBC % 0.1 INR (Anticoag Therapy) (0.77-1.02) APTT (26.0-36.3) seconds D-Dimer, Quantitative (Less Than 230) ng/mL VBG pH (7.33-7.43) VBG pCO2 (41-51) mmHg VBG pO2 (35-45) mmHg VBG HCO3 (24-28) mmol/L VBG O2 Saturation (70-80) % VBG Base Excess (0-4) Sodium 138 L (139-145) mmol/L Potassium 4.5 (3.5-5.0) mmol/L Chloride 106 (101-111) mmol/L Carbon Dioxide 28 (22-32) mmol/L Anion Gap 4 (2-11) mmol/L BUN 17 (6-24) mg/dL Creatinine 0.92 (0.51-0.95) mg/dL Est GFR ( Amer) 75.0 (>60) Est GFR (Non-Af Amer) 58.3 (>60) BUN/Creatinine Ratio 18.5 (8-20) Glucose 130 H (70-100) mg/dL Lactic Acid (0.5-2.0) mmol/L Calcium 9.3 (8.6-10.3) mg/dL Magnesium 2.0 (1.9-2.7) mg/dL Total Bilirubin 0.40 (0.2-1.0) mg/dL AST 33 (13-39) U/L ALT 26 (7-52) U/L Alkaline Phosphatase 184 H (34-104) U/L Total Creatine Kinase 131 (10-223) U/L CK-MB (CK-2) 5.6 (0.6-6.3) ng/mL Troponin I 0.01 (<0.04) ng/mL C-Reactive Protein 1.69 (< 5.00) mg/L B-Natriuretic Peptide 771 H ( - 100) pg/mL Total Protein 6.8 (6.4-8.9) g/dL Albumin 3.8 (3.2-5.2) g/dL Globulin 3.0 (2-4) g/dL Albumin/Globulin Ratio 1.3 (1-3) TSH 2.11 (0.34-5.60) mcIU/mL [place] < 0.10 L (0.6-1.2) mmol/L Microbiology and Other Data: Microbiology 07/28/17 09:05 Gram Stain - Final Sputum Expectorated 07/28/17 07:30 Influenza Types A,B Antigen (BRIANNA) - Final Nasal Specimen received for Influenza A/B Molecular testing Assess/Plan/Problems-Billing Assessment: 82 yo F with h/o COPD (not on 02 at home), CAD (RCA at 70% in 2015-no stents), breast ca (s/p mastectomy), hemolytic anemia(s/p splenectomy), nephrectomy presents with c/o SOB - Patient Problems (1) COPD (chronic obstructive pulmonary disease) Comment: patient continues to smoke -counseled x 5 min to stop In exacerbation-start prednisone, cont Azithro (2) Acute diastolic CHF (congestive heart failure) Comment: BNP markedly elevated, pt c/o SOB worse when lying down. will tx with a dose of IV Lasix. Echo obtained in 03/2017 showed EF 65% (3) CAD (coronary artery disease) Comment: Cath in 2015 showed RCA at 70%-managed medically: cont ASA/lipitor/BB (4) Dementia Comment: Cognitive impairment with h/o . Pt's PCP advised againts benzodiazepine use (5) Diarrhea Comment: chronic, due to IBS. Pt has had up to 7 BM's a day at baseline-uses Imodium prn (6) DVT prophylaxis Comment: HSQ
[2017-07-28] MEDS ORDERED: Loperamide CAP* 2 MG PO PRN (14:51)
[2017-07-28] MEDS ORDERED: Furosemide IV* 10 MG/ML 10 ML VIAL (100 MG) IV ONE (15:00)
[2017-07-28] MEDS: predniSONE TAB* 20 MG PO SCH (15:39)
[2017-07-28 16:40] LABS: Urine Appearance Cloudy; Urine Blood 1+ (Negative); Urine Color Yellow; Urine Ketones Negative (Negative); Urine Protein Negative (Negative); Urine Specific Gravity 1.009 (1.010-1.030); Urine Urobilinogen Negative (Negative)
[2017-07-28] MEDS: Acetaminophen TAB* 325 MG PO PRN (18:17)
[2017-07-28] MEDS: Atorvastatin* 80 MG TAB PO SCH (20:43)
[2017-07-28] MEDS: Mirtazapine TAB* 15 MG PO SCH (20:46)
[2017-07-28] MEDS: Montelukast Sodium TAB* 10 MG PO SCH (20:46)
[2017-07-29] MEDS: Lidocaine Patch REMOVE* 1 NOTE MISC PATCH OFF SCH ×2 (00:39→22:10)
[2017-07-29] MEDS: Acetaminophen TAB* 325 MG PO PRN ×3 (00:50→12:39)
[2017-07-29] MEDS: Albuterol/Ipratropium NEB.SOL* Albuterol 2.5 MG/Ipratropium 0.5 MG 3 ML INH PRN ×3 (00:54→21:02)
[2017-07-29] MEDS: Heparin VIAL(*) 5000 UNITS/ML VIAL (FIVE THOUSAND) SUBCUT SCH ×3 (06:01→22:08)
[2017-07-29] MEDS: Levothyroxine TAB* 25 MCG TAB PO SCH (06:01)
[2017-07-29 06:29] LABS: Hematocrit 34 % (35-47); Hemoglobin 12.2 g/dl (12.0-16.0); Mean Corpuscular HGB Conc 36 g/dl (31-36); Mean Corpuscular Hemoglobin 32 pg (27-31); Mean Corpuscular Volume 89 fL (80-97); Mean Platelet Volume 8.3 um3 (7.4-10.4); Platelet Count 286 10^3/ul (150-450); Red Blood Count 3.82 10^6/ul (4.0-5.4); Red Cell Distribution Width 16 % (10.5-15); White Blood Count 9.4 10^3/ul (3.5-10.8)
[2017-07-29 06:45] LABS: INR 0.91 (0.77-1.02)
[2017-07-29 07:07] LABS: ABS Basophils 0 10^3/ul (0-0.2); ABS Eosinophils 0 10^3/ul (0-0.6); ABS Lymphocytes 1.6 10^3/ul (1.0-4.8); ABS Monocytes 0.6 10^3/ul (0-0.8); ABS Neutrophils 7.2 10^3/ul (1.5-7.7); ABS Nucleated RBC 0 10^3/ul; Eosinophil % 0 % (0-6); Lymphocyte % 17.3 % (25-47); Nucleated Red Blood Cells % 0.1
[2017-07-29] MEDS: Mometasone/Formoter 200/5 MDI INH SCH ×2 (07:55→20:36)
[2017-07-29] MEDS: Lidocaine PATCH 5%* 1 PATCH TRANSDERM SCH (08:16)
[2017-07-29] MEDS: Nicotine PATCH 21 MG/24 HR* PATCH TRANSDERM SCH (08:17)
[2017-07-29] MEDS: Aspirin EC TAB* 81 MG TAB.EC PO SCH (08:17)
[2017-07-29] MEDS: Lactobacillus Acidophilus* 1 TAB PO SCH (08:17)
[2017-07-29] MEDS: Multivitamins/Minerals TAB PO SCH (08:17)
[2017-07-29] MEDS: Omeprazole CAP* 20 MG PO SCH (08:17)
[2017-07-29] MEDS: amLODIPine TAB* 5 MG PO SCH (08:18)
[2017-07-29] MEDS: Folic Acid TAB* 1 MG PO SCH (08:18)
[2017-07-29] MEDS: Losartan TAB* 25 MG PO SCH (08:18)
[2017-07-29] MEDS: Gabapentin CAP(*) 300 MG PO SCH ×3 (08:18→22:08)
[2017-07-29] MEDS: Azithromycin TAB* 250 MG PO SCH (08:18)
[2017-07-29] MEDS: Metoprolol Tartrate TAB* 25 MG PO SCH ×2 (08:19→22:09)
[2017-07-29] MEDS: predniSONE TAB* 20 MG PO SCH (08:19)
[2017-07-29] MEDS: PTO: Fexofenadine (NF) 180 MG TAB PO SCH (08:20)
[2017-07-29] MEDS: HYDROcodone/ACETAMIN 5-325 MG* 1 TAB PO PRN ×2 (10:06→19:27)
--- NOTE | 2017-07-29 14:06 | PN ---
Subjective Date of Service: 07/29/17 Interval History: pt still coughing, c/o KEMP, purulent cough Objective Active Medications: Acetaminophen (Tylenol Tab*) 650 mg PO Q4H PRN PRN Reason: FEVER/PAIN Last Admin: 07/29/17 12:39 Dose: 650 mg Hydrocodone Bitart/Acetaminophen ([place] 5-325 Tab*) 1 tab PO BID PRN PRN Reason: PAIN Last Admin: 07/29/17 10:06 Dose: 1 tab Albuterol (Ventolin 2.5 Mg/3 Ml Neb.Harini*) 2.5 mg INH Q2H PRN PRN Reason: SOB/WHEEZING Albuterol/Ipratropium (Duoneb (Albuterol 2.5 Mg/Ipratropium 0.5 Mg)) 1 neb INH [id number] AWAKE PRN PRN Reason: WHEEZING Last Admin: 07/29/17 00:54 Dose: 1 neb Amlodipine Besylate (Norvasc Tab*) 10 mg PO DAILY [facility] Last Admin: 07/29/17 08:18 Dose: 10 mg Aspirin (Aspirin Ec Tab*) 81 mg PO DAILY [facility] Last Admin: 07/29/17 08:17 Dose: 81 mg Atorvastatin Calcium (Lipitor*) 80 mg PO BEDTIME [facility] Last Admin: 07/28/17 20:43 Dose: 80 mg Azithromycin (Zithromax Tab*) 250 mg PO DAILY [facility] Last Admin: 07/29/17 08:18 Dose: 250 mg Fexofenadine HCl (Chaya 180 (Nf)) 180 mg PO QAM [facility] PRN Reason: Protocol Last Admin: 07/29/17 08:20 Dose: Not Given Folic Acid (Folvite Tab*) 1 mg PO DAILY [facility] Last Admin: 07/29/17 08:18 Dose: 1 mg Gabapentin (Neurontin Cap(*)) 600 mg PO TID [facility] Last Admin: 07/29/17 08:18 Dose: 600 mg Heparin Sodium (Porcine) (Heparin Vial(*)) 5,000 units SUBCUT Q8HR [facility] Last Admin: 07/29/17 06:01 Dose: 5,000 units Lactobacillus Rhamnosus (Lactobacillus Acidophilus*) 1 tab PO DAILY [facility] Last Admin: 07/29/17 08:17 Dose: 1 tab Levothyroxine Sodium (Synthroid Tab*) 25 mcg PO 0600 [facility] Last Admin: 07/29/17 06:01 Dose: 25 mcg Lidocaine (Lidoderm 5% Patch*) 1 patch TRANSDERM DAILY [facility] Last Admin: 07/29/17 08:16 Dose: 1 patch Loperamide HCl (Imodium Cap*) 2 mg PO .SEE DIRECTIONS PRN PRN Reason: DIARRHEA Losartan Potassium (Cozaar Tab*) 25 mg PO DAILY [facility] Last Admin: 07/29/17 08:18 Dose: 25 mg Metoprolol Tartrate (Lopressor Tab*) 25 mg PO BID [facility] Last Admin: 07/29/17 08:19 Dose: 25 mg Mirtazapine (Remeron Tab*) 15 mg PO BEDTIME [facility] Last Admin: 07/28/17 20:46 Dose: 15 mg Mometasone Furoate/Formoterol Fumar (Dulera 200/5 Mdi*) 2 puff INH BID [facility] Last Admin: 07/29/17 07:55 Dose: 2 puff Montelukast Sodium (Singulair Tab*) 10 mg PO BEDTIME [facility] Last Admin: 07/28/17 20:46 Dose: 10 mg Multivitamins/Minerals (Theragran/Minerals Tab*) 1 tab PO DAILY [facility] Last Admin: 07/29/17 08:17 Dose: 1 tab Nicotine (Nicotine Patch 21 Mg/24 Hr*) 1 patch TRANSDERM DAILY@0800 [facility] Last Admin: 07/29/17 08:17 Dose: 1 patch Omeprazole (Prilosec Cap*) 20 mg PO QAM [facility] Last Admin: 07/29/17 08:17 Dose: 20 mg Ondansetron HCl (Zofran Inj*) 4 mg IV Q6H PRN PRN Reason: NAUSEA Pharmacy Profile Note (Lidocaine Patch Remove*) 1 note PATCH OFF 2100 [facility] Last Admin: 07/29/17 00:39 Dose: 1 note Prednisone (Deltasone Tab*) 60 mg PO DAILY [facility] Last Admin: 07/29/17 08:19 Dose: 60 mg Vital Signs - 8 hr 07/29/17 07/29/17 07/29/17 07:28 08:00 08:18 Temperature 98.0 F Pulse Rate 72 Respiratory 18 18 19 Rate Blood Pressure 130/51 (mmHg) O2 Sat by Pulse 99 Oximetry 07/29/17 07/29/17 07/29/17 10:06 10:10 11:18 Temperature 98.0 F Pulse Rate 66 Respiratory 18 16 18 Rate Blood Pressure 128/50 (mmHg) O2 Sat by Pulse 98 Oximetry 07/29/17 12:00 Temperature Pulse Rate Respiratory 16 Rate Blood Pressure (mmHg) O2 Sat by Pulse Oximetry Oxygen Devices in Use Now: None Appearance: 82 yo f in nAD, aAOx3 Eyes: No Scleral Icterus, PERRLA Ears/Nose/Mouth/Throat: NL Teeth, Lips, Gums, Mucous Membranes Moist Neck: NL Appearance and Movements; NL JVP, Trachea Midline Respiratory: Symmetrical Chest Expansion and Respiratory Effort, - - rhonchi in RML Cardiovascular: RRR, - - 2/6 MOLLY at RUSB Abdominal: NL Sounds; No Tenderness; No Distention Lymphatic: No Cervical Adenopathy Extremities: No Edema, No Clubbing, Cyanosis Skin: No Rash or Ulcers, No Nodules or Sclerosis Neurological: Alert and Oriented x 3, NL Muscle Strength and Tone Result Diagrams: 07/29/17 05:57 07/29/17 05:57 Additional Lab and Data: Lab Results 07/28/17 07/28/17 07/28/17 Range/Units 05:36 05:37 05:37 WBC (3.5-10.8) 10^3/ul RBC (4.0-5.4) 10^6/ul Hgb (12.0-16.0) g/dl Hct (35-47) % MCV (80-97) fL MCH (27-31) pg MCHC (31-36) g/dl RDW (10.5-15) % Plt Count (150-450) 10^3/ul MPV (7.4-10.4) um3 Neut % (Auto) (38-83) % Lymph % (Auto) (25-47) % Williamson % (Auto) (0-7) % Eos % (Auto) (0-6) % Baso % (Auto) (0-2) % Absolute Neuts (auto) (1.5-7.7) 10^3/ul Absolute Lymphs (auto) (1.0-4.8) 10^3/ul Absolute Monos (auto) (0-0.8) 10^3/ul Absolute Eos (auto) (0-0.6) 10^3/ul Absolute Basos (auto) (0-0.2) 10^3/ul Absolute Nucleated RBC 10^3/ul Nucleated RBC % INR (Anticoag Therapy) 0.85 (0.77-1.02) APTT 25.5 L (26.0-36.3) seconds D-Dimer, Quantitative < 200 (Less Than 230) ng/mL VBG pH 7.30 L (7.33-7.43) VBG pCO2 55 H (41-51) mmHg VBG pO2 36 (35-45) mmHg VBG HCO3 24.1 (24-28) mmol/L VBG O2 Saturation 76.0 (70-80) % VBG Base Excess -0.2 L (0-4) Sodium (139-145) mmol/L Potassium (3.5-5.0) mmol/L Chloride (101-111) mmol/L Carbon Dioxide (22-32) mmol/L Anion Gap (2-11) mmol/L BUN (6-24) mg/dL Creatinine (0.51-0.95) mg/dL Est GFR ( Amer) (>60) Est GFR (Non-Af Amer) (>60) BUN/Creatinine Ratio (8-20) Glucose (70-100) mg/dL Lactic Acid 0.7 (0.5-2.0) mmol/L Calcium (8.6-10.3) mg/dL Magnesium (1.9-2.7) mg/dL Total Bilirubin (0.2-1.0) mg/dL AST (13-39) U/L ALT (7-52) U/L Alkaline Phosphatase (34-104) U/L Total Creatine Kinase (10-223) U/L CK-MB (CK-2) (0.6-6.3) ng/mL Troponin I (<0.04) ng/mL C-Reactive Protein (< 5.00) mg/L B-Natriuretic Peptide ( - 100) pg/mL Total Protein (6.4-8.9) g/dL Albumin (3.2-5.2) g/dL Globulin (2-4) g/dL Albumin/Globulin Ratio (1-3) TSH (0.34-5.60) mcIU/mL [place] (0.6-1.2) mmol/L 07/28/17 07/28/17 07/28/17 Range/Units 05:37 05:37 05:37 WBC 17.6 H (3.5-10.8) 10^3/ul RBC 4.07 (4.0-5.4) 10^6/ul Hgb 12.5 (12.0-16.0) g/dl Hct 37 (35-47) % MCV 90 (80-97) fL MCH 31 (27-31) pg MCHC 34 (31-36) g/dl RDW 16 H (10.5-15) % Plt Count 316 (150-450) 10^3/ul MPV 8.0 (7.4-10.4) um3 Neut % (Auto) 81.2 (38-83) % Lymph % (Auto) 10.9 L (25-47) % Williamson % (Auto) 6.5 (0-7) % Eos % (Auto) 0.5 (0-6) % Baso % (Auto) 0.9 (0-2) % Absolute Neuts (auto) 14.3 H (1.5-7.7) 10^3/ul Absolute Lymphs (auto) 1.9 (1.0-4.8) 10^3/ul Absolute Monos (auto) 1.1 H (0-0.8) 10^3/ul Absolute Eos (auto) 0.1 (0-0.6) 10^3/ul Absolute Basos (auto) 0.2 (0-0.2) 10^3/ul Absolute Nucleated RBC 0 10^3/ul Nucleated RBC % 0.1 INR (Anticoag Therapy) (0.77-1.02) APTT (26.0-36.3) seconds D-Dimer, Quantitative (Less Than 230) ng/mL VBG pH (7.33-7.43) VBG pCO2 (41-51) mmHg VBG pO2 (35-45) mmHg VBG HCO3 (24-28) mmol/L VBG O2 Saturation (70-80) % VBG Base Excess (0-4) Sodium 138 L (139-145) mmol/L Potassium 4.5 (3.5-5.0) mmol/L Chloride 106 (101-111) mmol/L Carbon Dioxide 28 (22-32) mmol/L Anion Gap 4 (2-11) mmol/L BUN 17 (6-24) mg/dL Creatinine 0.92 (0.51-0.95) mg/dL Est GFR ( Amer) 75.0 (>60) Est GFR (Non-Af Amer) 58.3 (>60) BUN/Creatinine Ratio 18.5 (8-20) Glucose 130 H (70-100) mg/dL Lactic Acid (0.5-2.0) mmol/L Calcium 9.3 (8.6-10.3) mg/dL Magnesium 2.0 (1.9-2.7) mg/dL Total Bilirubin 0.40 (0.2-1.0) mg/dL AST 33 (13-39) U/L ALT 26 (7-52) U/L Alkaline Phosphatase 184 H (34-104) U/L Total Creatine Kinase 131 (10-223) U/L CK-MB (CK-2) 5.6 (0.6-6.3) ng/mL Troponin I 0.01 (<0.04) ng/mL C-Reactive Protein 1.69 (< 5.00) mg/L B-Natriuretic Peptide 771 H ( - 100) pg/mL Total Protein 6.8 (6.4-8.9) g/dL Albumin 3.8 (3.2-5.2) g/dL Globulin 3.0 (2-4) g/dL Albumin/Globulin Ratio 1.3 (1-3) TSH 2.11 (0.34-5.60) mcIU/mL [place] < 0.10 L (0.6-1.2) mmol/L Microbiology and Other Data: Microbiology 07/28/17 09:05 Gram Stain - Final Sputum Expectorated 07/28/17 07:30 Influenza Types A,B Antigen (BRIANNA) - Final Nasal Specimen received for Influenza A/B Molecular testing Assess/Plan/Problems-Billing Assessment: 82 yo F with h/o COPD (not on 02 at home), CAD (RCA at 70% in 2015-no stents), breast ca (s/p mastectomy), hemolytic anemia(s/p splenectomy), nephrectomy presents with c/o SOB - Patient Problems (1) COPD (chronic obstructive pulmonary disease) Comment: In exacerbation- cont prednisone, cont Azithro. pt has a lot of purulent secretions. Utilizing flutter valve will try to wean off 02 today (2) Acute diastolic CHF (congestive heart failure) Comment: BNP markedly elevated, pt c/o SOB worse when lying down. tx with a dose of IV Lasix on 07/28/17 , today appears euvolemic Echo obtained in 03/2017 showed EF 65% (3) CAD (coronary artery disease) Comment: Cath in 2015 showed RCA at 70%-managed medically: cont ASA/lipitor/BB (4) Dementia Comment: Cognitive impairment with h/o . Pt's PCP advised againts benzodiazepine use (5) Diarrhea Comment: chronic, due to IBS. Pt has had up to 7 BM's a day at baseline-uses Imodium prn (6) DVT prophylaxis Comment: HSQ Status and Disposition: inpatient
[2017-07-29] MEDS: guaiFENesin LIQ* 100 MG/5 ML UDC PO PRN (16:52)
[2017-07-29] MEDS: Butalb/Acetamin/Caff TAB* 1 TAB PO PRN ×2 (16:53→23:34)
[2017-07-29] MEDS ORDERED: Butalb/Acetamin/Caff TAB* 1 TAB PO ONE (18:00)
[2017-07-29] MEDS: Montelukast Sodium TAB* 10 MG PO SCH (22:09)
[2017-07-29] MEDS: Atorvastatin* 80 MG TAB PO SCH (22:09)
[2017-07-29] MEDS: Mirtazapine TAB* 15 MG PO SCH (22:09)
[2017-07-30] MEDS: guaiFENesin LIQ* 100 MG/5 ML UDC PO PRN (00:57)
[2017-07-30] MEDS: Levothyroxine TAB* 25 MCG TAB PO SCH (05:51)
[2017-07-30] MEDS: Heparin VIAL(*) 5000 UNITS/ML VIAL (FIVE THOUSAND) SUBCUT SCH ×2 (05:53→14:21)
[2017-07-30] MEDS: Mometasone/Formoter 200/5 MDI INH SCH (07:48)
[2017-07-30] MEDS: Albuterol/Ipratropium NEB.SOL* Albuterol 2.5 MG/Ipratropium 0.5 MG 3 ML INH PRN (07:48)
[2017-07-30] MEDS: Nicotine PATCH 21 MG/24 HR* PATCH TRANSDERM SCH (09:43)
[2017-07-30] MEDS: Lidocaine PATCH 5%* 1 PATCH TRANSDERM SCH (09:46)
[2017-07-30] MEDS: Losartan TAB* 25 MG PO SCH (09:51)
[2017-07-30] MEDS: amLODIPine TAB* 5 MG PO SCH (09:52)
[2017-07-30] MEDS: Lactobacillus Acidophilus* 1 TAB PO SCH (09:53)
[2017-07-30] MEDS: Folic Acid TAB* 1 MG PO SCH (09:54)
[2017-07-30] MEDS: Aspirin EC TAB* 81 MG TAB.EC PO SCH (09:54)
[2017-07-30] MEDS: Omeprazole CAP* 20 MG PO SCH (09:56)
[2017-07-30] MEDS: predniSONE TAB* 20 MG PO SCH (09:56)
[2017-07-30] MEDS: Gabapentin CAP(*) 300 MG PO SCH ×2 (09:56→14:19)
[2017-07-30] MEDS: Metoprolol Tartrate TAB* 25 MG PO SCH (09:56)
[2017-07-30] MEDS: Azithromycin TAB* 250 MG PO SCH (09:57)
[2017-07-30] MEDS: PTO: Fexofenadine (NF) 180 MG TAB PO SCH (09:58)
[2017-07-30] MEDS: Multivitamins/Minerals TAB PO SCH (09:58)
[2017-07-30] MEDS: HYDROcodone/ACETAMIN 5-325 MG* 1 TAB PO PRN (11:16)
[2017-07-30 11:51] VITALS: BP 115/45
[2017-07-30] MEDS: Butalb/Acetamin/Caff TAB* 1 TAB PO PRN (14:19)
--- NOTE | 2017-07-31 21:36 | DS ---
DISCHARGE SUMMARY: DATE OF ADMISSION: 07/28/17 DATE OF DISCHARGE: 07/30/17 ADMITTING PROVIDER: Collin Hernandez NP. ATTENDING PHYSICIANS: Reny Castillo MD and (on day of discharge) Kuldeep Jc MD. PRIMARY CARE PHYSICIAN: Dr. Burciaga. CHIEF COMPLAINT: Productive cough, shortness of breath. PRINCIPAL DIAGNOSES: 1. Chronic obstructive pulmonary disease exacerbation. 2. Congestive heart failure exacerbation. HISTORY OF PRESENT ILLNESS AND HOSPITAL COURSE: Nai Walker is an 82-year-old female with past medical history of COPD, and current smoker, coronary artery disease, with history of NSTEMI, IBS, breast cancer, anxiety, hemolytic anemia, arthritis, chronic pain, hypertension, hypothyroidism, hyperlipidemia, aortic stenosis (moderate), GERD, DVT, nephrectomy. She comes in with several days of progressive shortness of breath with productive thick green yellow sputum, cough , she had chills and pleuritic chest pain, fatigue, weakness. She had an initial leukocytosis of 17.6. D-dimer was checked and negative at less than 200. Admitting provider was concerned about potential pneumonia and the patient was started on azithromycin. The official AP portable chest x-ray was read as no radiographic evidence for acute cardiopulmonary abnormality. The patient's procalcitonin level was checked and was less than 0.1. She did have elevated BNP of 771, and she was given 40 mg of IV Lasix. In the afternoon on hospital day #1, she was started on prednisone 60 mg daily, concerned for COPD exacerbation. She was able to be weaned off oxygen by day of discharge and her leukocytosis also resolved to 9.4 on hospital day #2. She is being discharged to complete a total course of azithromycin 5 days total. She was also recommended to quit smoking and she already has both nicotine patch and inhaler at home which she had started to use, though not consistently. Provider on hospital day #2 felt the patient was euvolemic and Lasix was not redosed. Of note, her weight on admission was 52.1 kg, and on discharge was 55.9 kg and the patient was started on discharge at Lasix 20 mg p.o. Tuesday, Tuesday and Tuesday. She felt like the prednisone was making her abdomen bloated sensation, although this certainly could be where she stores her extra edema. She has been recommended to follow up with PCP, Dr. Burciaga, and her online merchandising coordinator, Dr. Lees. There should be consideration to repeat an outpatient echocardiogram, last was 04/18/17, when she had ejection fraction 60% to 65% and moderate aortic stenosis, moderate mitral regurgitation, moderate tricuspid regurgitation and evidence of moderate pulmonary hypertension. She was asked to weigh herself daily, contact PCP and/or online merchandising coordinator if her weight is more than 3 pounds in 1 day or more than 5 pounds in 1 week. She had Streptococcus pneumonia antigen and Legionella urinary antigens that were both negative. Her sputum culture grew normal ana along with Salma krusei 3+. Blood cultures were negative x3 days. Urine culture with no significant growth. She was afebrile throughout the hospitalization. MEDICATIONS ON DISCHARGE: Include: 1. Albuterol 2 puffs inhaled q.4 to 6 hours p.r.n. (Ventolin HFA inhaler). 2. Amlodipine 10 mg daily. 3. Aspirin 81 mg daily. 4. Atorvastatin 80 mg q.h.s. 5. Azithromycin 250 mg p.o. daily for 2 more tabs (new). 6. Buspirone 10 mg p.o. b.i.d. 7. Fioricet 1 tablet p.o. daily p.r.n. for migraine headaches up to 3 times per week. 8. Celebrex 200 mg p.o. q.a.m. 9. Vitamin B12, 500 mcg p.o. daily. 10. Ergocalciferol 50,000 units p.o. monthly. 11. Chaya 180 mg p.o. q.a.m. 12. Flonase 1 spray both nares daily. 13. Folic acid 1 mg p.o. daily. 14. Furosemide 20 mg p.o. Tuesday, Tuesday and Tuesday (new). 15. Gabapentin 600 mg p.o. t.i.d. 16. Guaifenesin 600 mg p.o. b.i.d. 17. [place] 1 tablet p.o. b.i.d. p.r.n. 18. Probiotic 1capsule p.o. daily. 19. Levothyroxine 25 mcg p.o. q.a.m. 20. Lidoderm 5% patch topical daily. 21. Imodium 2 mg p.o. 4 times a day p.r.n. 22. Losartan 25 mg p.o. daily. 23. Metoprolol tartrate 25 mg p.o. b.i.d. 24. Mirtazapine 15 mg p.o. q.h.s. 25. Montelukast sodium (Singulair 10 mg p.o. q.h.s.). 26. Multivitamin tablet 1 tablet p.o. daily. 27. Nicotine patch 21 mg for 24 hours daily. 28. Omeprazole 20 mg p.o. q.a.m. 29. Zofran 8 mg p.o. q.6 hours p.r.n. nausea. 30. MiraLAX 17 g p.o. daily p.r.n. constipation. 31. Incruse Ellipta 1 inhaler daily. DISCHARGE DIET: Heart healthy unchanged. ACTIVITY LEVEL: No restrictions. FOLLOWUP: Please follow up with Nancy Burciaga, PCP, within 3 to 5 days from discharge; online merchandising coordinator, Dr. Bernard Lees, within 1 to 2 weeks of discharge with consideration for repeat echocardiogram given suspicion for CHF exacerbation. The patient also has missed previously scheduled appointment with Dr. Montgomery , ENT, for nerve block for her migraine headaches. She will resume services with [facility]. TIME SPENT: Time spent on discharge was 35 minutes. [id number]/[facility] #: [id number] SINDI
== END 2017-07-30 15:20 | disposition home or self-care (01) | DRG 190 ==
LOC: ED 04:58 → MED 06:43
PROVIDERS: ADMIT Pediatrics; ATTEND Internal Medicine
DX: J44.1 Chronic obstructive pulmonary disease with (acute) exacerbation (principal); I50.33 Acute on chronic diastolic (congestive) heart failure; E06.3 Autoimmune thyroiditis; I25.10 Atherosclerotic heart disease of native coronary artery without angina pectoris; E78.00 Pure hypercholesterolemia, unspecified; K21.9 Gastro-esophageal reflux disease without esophagitis; M19.90 Unspecified osteoarthritis, unspecified site; M81.0 Age-related osteoporosis without current pathological fracture; G43.909 Migraine, unspecified, not intractable, without status migrainosus; F41.9 Anxiety disorder, unspecified; H26.9 Unspecified cataract; F17.210 Nicotine dependence, cigarettes, uncomplicated; G89.29 Other chronic pain; E03.9 Hypothyroidism, unspecified; G31.84 Mild cognitive impairment of uncertain or unknown etiology; K58.0 Irritable bowel syndrome with diarrhea; I08.3 Combined rheumatic disorders of mitral, aortic and tricuspid valves; I27.20 Pulmonary hypertension, unspecified; F02.80 Dementia in other diseases classified elsewhere, unspecified severity, without behavioral disturbance, psychotic disturbance, mood disturbance, and anxiety; I11.0 Hypertensive heart disease with heart failure; Z88.6 Allergy status to analgesic agent; Z81.8 Family history of other mental and behavioral disorders; Z87.01 Personal history of pneumonia (recurrent); Z90.81 Acquired absence of spleen; Z85.3 Personal history of malignant neoplasm of breast; Z83.6 Family history of other diseases of the respiratory system; I25.2 Old myocardial infarction; Z86.718 Personal history of other venous thrombosis and embolism; Z90.710 Acquired absence of both cervix and uterus; Z90.10 Acquired absence of unspecified breast and nipple; Z91.040 Latex allergy status; Z88.8 Allergy status to other drugs, medicaments and biological substances; Z91.018 Allergy to other foods; Z88.3 Allergy status to other anti-infective agents; Z88.2 Allergy status to sulfonamides; Z87.442 Personal history of urinary calculi; Z90.5 Acquired absence of kidney; Z79.82 Long term (current) use of aspirin
CPT/HCPCS: 36415; 71045; 80048; 80053; 80178; 81003; 81015; 82550; 82553; 82565; 82803; 83605; 83735; 83880; 84145; 84443; 84484; 84520; 85025; 85379; 85610; 85730; 86140; 87040; 87070; 87086; 87106; 87205; 87502; 87899; 93005; 94640; 99284; 99406; A9270-GY; J0456; J0696; J1644; J1940; J7512

== ENCOUNTER 2018-07-16 20:51 | Emergency (ER) | payer MEDICARE, MEDICAID ==
[2018-07-16] MEDS ORDERED: NS 0.9% 1000 ML** 1,000 ML IV ONE (21:27)
--- NOTE | 2018-07-16 21:27 | ED ---
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 The patient rates the pain 8/10 in severity. Symptoms aggravated by nothing. Symptoms alleviated by nothing. Patient reports abd pain, blurred vision, CP, elevated BP, SOB, and weakness. Patient denies nausea. Patient states she has taken multiple types of pain medication with no relief of symptoms. - History Of Current Complaint Chief Complaint: EDGeneral Stated Complaint: SOB PER EMS Time Seen by Provider: 07/16/18 21:17 Hx Obtained From: Patient Onset/Duration: Sudden Onset, Started days ago, Still Present Initially Headache Was: Severe Currently Pain Is: Severe Timing: Constant Location of Headache: Temporal Aggravating Factor: Nothing Allevating Factors: Nothing Associated Signs And Symptoms: Other (Noted In Comments) - Positive abd pain, blurred vision, CP, elevated BP, SOB, and weakness. Negative nausea. - Allergies/Home Medications Allergies/Adverse Reactions: Allergies Allergy/AdvReac Type Severity Reaction Status Date / Time carbamazepine Allergy Unknown Verified 07/16/18 23:11 Reaction Details cetirizine [From Zyrtec] Allergy Unknown Verified 07/16/18 23:11 Reaction Details divalproex sodium Allergy Unknown Verified 07/16/18 23:11 [From Depakote] Reaction Details iodine Allergy Unknown Verified 07/16/18 23:11 Reaction Details latex Allergy Unknown Verified 07/16/18 23:11 Reaction Details olanzapine [From Zyprexa] Allergy Unknown Verified 07/16/18 23:11 Reaction Details phenytoin [From Dilantin] Allergy Unknown Verified 07/16/18 23:11 Reaction Details prednisone Allergy Unknown Verified 07/16/18 23:11 Reaction Details Sulfa (Sulfonamide Allergy Unknown Verified 07/16/18 23:11 Antibiotics) Reaction Details Tetracyclines Allergy Unknown Verified 07/16/18 23:11 Reaction Details PMH/Surg Hx/FS Hx/Imm Hx Previously Healthy: No Endocrine/Hematology History: Reports: Hx Thyroid Disease - HASHIMOTOS, Hx Anemia - CHRONIC HEMOLYTIC ANEMIA Denies: Hx Anticoagulant Therapy, Hx Diabetes Cardiovascular History: Reports: Hx Coronary Artery Disease, Hx Hypercholesterolemia, Hx Hypertension Denies: Hx Pacemaker/ICD Comment Only: Other Cardiovascular Problems/Disorders - HX OF MASTECTOMY Respiratory History: Reports: Hx Asthma, Hx Chronic Bronchitis - not chronic, Hx Chronic Obstructive Pulmonary Disease (COPD) - CAD, Hx Pneumonia, Other Respiratory Problems/Disorders - emphysema GI History: Reports: Hx Gastroesophageal Reflux Disease, Hx Hiatal Hernia, Hx Irritable Bowel, Hx Obstructive Bowel, Other GI Disorders - small bowel obstruction History: Reports: Hx Acute Renal Failure, Hx Kidney Stones, Hx Renal Disease - 1 KIDNEY, Other Problems/Disorders - renal disease Musculoskeletal History: Reports: Hx Arthritis - OSTEOARTHRITIS, Hx Osteoporosis Denies: Hx Rheumatoid Arthritis Sensory History: Reports: Hx Cataracts Denies: Hx Contacts or Glasses, Hx Hearing Aid Opthamlomology History: Reports: Hx Cataracts Denies: Hx Contacts or Glasses Neurological History: Reports: Hx Headaches - WITH ELEVATION IN BLOOD PRESSURE, Hx Migraine - WITH VALSALVAR MOVEMENT, Hx Seizures - BI-TEMPORAL INCOMPLETE FOCAL SEIZURES Psychiatric History: Reports: Hx Anxiety Denies: Hx Panic Disorder - Cancer History Cancer Type, Location and Year: BREAST CA Hx Chemotherapy: Yes - 1990 Hx Radiation Therapy: No - Surgical History Surgery Procedure, Year, and Place: CARDIAC CATHS (NO STENTS);. LEFT MASTECTOMY ;. LEFT LYMPH NODES REMOVED;. SPLENECTOMY;. RIGHT NEPHRECTOMY;. RIGHT KNEE SCOPING ([place]);. BILATERAL URETER REPAIRS A CHILD;. BLADDER REPAIR ( [place]);. TONSILS AND APPENDECTOMY YOUNG CHILD;. HEMATOMA REMOVED FROM SPINE;. UTERINE FIBROIDS REMOVED WITH D&CX3;. LITHOTRIPSY; Hx Anesthesia Reactions: Yes Infectious Disease History: No Infectious Disease History: Denies: Traveled Outside the [place] in Last 30 Days - Family History Known Family History: Positive: Respiratory Disease - COPD - Social History Occupation: Retired Lives: Alone Alcohol Use: None Hx Substance Use: No Substance Use Type: Reports: None Hx Tobacco Use: Yes Smoking Status (MU): Heavy Every Day Tobacco Smoker Type: Cigarettes Amount Used/How Often: 1 ppd 50 yrs Length of Time of Smoking/Using Tobacco: 50 years Have You Smoked in the Last Year: Yes Review of Systems Positive: Blurred Vision Positive: Chest Pain, Other - Positive elevated BP Positive: Shortness Of Breath Positive: Abdominal Pain. Negative: Nausea Positive: Headache, Weakness All Other Systems Reviewed And Are Negative: Yes Physical Exam - Summary Physical Exam Summary: Appearance: Well-appearing, Well-nourished, lying in bed comfortably Skin: Warm, dry, no obvious rash Eyes: sclera anicteric, no conjunctival pallor ENT: mucous membranes moist, pharynx appears normal Neck: Supple, nontender Respiratory: Clear to auscultation, no signs of respiratory distress Cardiovascular: Normal S1, S2. No murmurs. Normal distal pulses in tibial and radial bilaterally. Abdomen: Soft, nontender, normal active bowel sounds present Musculoskeletal: Normal, Strength/ROM Intact Neurological: A&Ox3, awake and alert, mentation is normal, speech is fluent and appropriate Psychiatric: affect is normal, does not appear anxious or depressed Triage Information Reviewed: Yes Vital Signs On Initial Exam: Initial Vitals Temp Pulse Resp BP Pulse Ox 97.0 F 95 18 187/93 98 07/16/18 20:59 07/16/18 20:59 07/16/18 20:59 07/16/18 20:59 07/16/18 20:59 Vital Signs Reviewed: Yes Diagnostics - Vital Signs Vital Signs Temp Pulse Resp BP Pulse Ox 07/16/18 20:59 97.0 F 95 18 187/93 98 - Laboratory Result Diagrams: 07/16/18 23:32 07/16/18 23:32 Lab Statement: Any lab studies that have been ordered have been reviewed, and results considered in the medical decision making process. - Radiology Chest XR Radiology Interpretation Completed By: ED Physician Summary of Radiographic Findings: CXR reveals, per ED physician, no acute process. - EKG 2151 Cardiac Rate: NL EKG Rhythm: Sinus Rhythm - 88 BPM Summary of EKG Findings: An EKG taken at 2151 reveals nml sinus rhythm at 88 BPM with P waves, QRS complex, and T waves are within normal limits, T waves and intervals are normal, no ischemic changes. This is a normal EKG. Re-Evaluation - Re-Evaluation First Eval Re-Evaluation Time: 03:20 Change: Unchanged Comment: The patients family was concerned about her shakiness and unsteadiness , but I was able to get the patient ambulating while holding my arm. She normally ambulates with a walker. I think her symptoms are coming from the prednisone, so I told her to discontinue that. 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 Physical Exam Findings: Nml. An EKG taken at 2152 reveals nml sinus rhythm at 88 BPM with P waves, QRS complex, and T waves are within normal limits, T waves and intervals are normal, no ischemic changes. This is a normal EKG. CXR reveals, per ED physician, no acute process. Bloodwork and UA obtained. In the ED course the patient was given norco, fluids, lorazepam, and Compazine. This patient has a multitude of symptoms that made it difficult to come to a specific diagnosis. Shortly prior to going home, the patient shared with me that she was recently put on prednisone for unclear reasons. I suspect that her present symptoms are a consequence of side effects to prednisone. I have asked her to stop the medication until she can discuss this further with her regular doctor. Patient will be discharged with follow up from PCP. The patient is agreeable with this plan. - Diagnoses Provider Diagnoses: Headache, Medication side effect Discharge - Sign-Out/Discharge Documenting (check all that apply): Patient Departure - Discharge home Patient Received Moderate/Deep Sedation with Procedure: No - Discharge Plan Condition: Improved Disposition: HOME Patient Education Materials: Tension Headache (ED) Referrals: Nancy Burciaga MD [Primary Care Provider] - - Billing Disposition and Condition Condition: IMPROVED Disposition: Home - Attestation Statements Document Initiated by Scribe: Yes Documenting Scribe: Giselle Gibbs Provider For Whom Aaron is Documenting (Include Credential): Dr. Brandin Anders MD Scribe Attestation: IGiselle, scribed for Dr. Brandin Anders MD on 07/17/18 at 0352. Scribe Documentation Reviewed: Yes Provider Attestation: The documentation as recorded by the Giselle conner accurately reflects the service I personally performed and the decisions made by me, Dr. Brandin Anders MD Status of Scribe Document: Viewed
[2018-07-16] MEDS ORDERED: Lorazepam PYXIS KEY PRN (21:28)
[2018-07-16] MEDS ORDERED: LORazepam INJ* 2 MG/ML 1 ML VIAL IM ONE (21:28)
[2018-07-16] MEDS ORDERED: PROCHLORPERAZINE INJ 5 MG/ML 2 ML VIAL IV ONE (21:28)
[2018-07-16] MEDS ORDERED: Lorazepam PYXIS KEY ONE (21:37)
[2018-07-16 22:55] LABS: Urine Appearance Clear; Urine Bacteria Absent (Absent); Urine Bilirubin Negative (Negative); Urine Blood Negative (Negative); Urine Color Yellow; Urine Glucose 1+(50 mg/dL) (Negative); Urine Ketones Negative (Negative); Urine Nitrite Negative (Negative); Urine Protein 1+(30 mg/dL) (Negative); Urine Red Blood Cell Absent (Absent); Urine Specific Gravity 1.005 (1.010-1.030); Urine Urobilinogen Negative (Negative); Urine White Blood Cell Absent (Absent)
[2018-07-16] MEDS ORDERED: HYDROcodone/ACETAMIN 5-325 MG* 1 TAB PO ONE (23:12)
[2018-07-16 23:41] LABS: ABS Basophils 0.1 10^3/ul (0-0.2); ABS Eosinophils 0 10^3/ul (0-0.6); ABS Lymphocytes 0.9 10^3/ul (1.0-4.8); ABS Monocytes 0.6 10^3/ul (0-0.8); ABS Neutrophils 8.3 10^3/ul (1.5-7.7); ABS Nucleated RBC 0 10^3/ul; Eosinophil % 0 %; Hematocrit 38 % (33-41); Hemoglobin 12.8 g/dL (12.0-16.0); Lymphocyte % 9.5 %; Mean Corpuscular HGB Conc 34 g/dL (31-36); Mean Corpuscular Hemoglobin 31 pg (27-31); Mean Corpuscular Volume 92 fL (80-97); Mean Platelet Volume 7.6 fL (7.4-10.4); Nucleated Red Blood Cells % 0; Platelet Count 263 10^3/uL (150-450); Red Blood Count 4.12 10^6 /uL (3.70-4.87); Red Cell Distribution Width 17 % (10.5-15); White Blood Count 9.9 10^3/uL (3.5-10.8)
[2018-07-16 23:59] LABS: ALT 19 U/L (7-52); AST 23 U/L (13-39); Albumin 3.7 g/dL (3.2-5.2); Albumin/Globulin Ratio 1.4 (1-3); Alkaline Phosphatase 170 U/L (34-104); Anion Gap 5 mmol/L (2-11); BUN/Creatinine Ratio 19.2 (8-20); Blood Urea Nitrogen 14 mg/dL (6-24); CO2 Carbon Dioxide 26 mmol/L (22-32); Calcium 8.4 mg/dL (8.6-10.3); Chloride 103 mmol/L (101-111); EGFR African American 91.9 (>60); Globulin 2.7 g/dL (2-4); Glucose 167 mg/dL (70-100); Potassium 4.4 mmol/L (3.5-5.0); Sodium 134 mmol/L (135-145); Total Protein 6.4 g/dL (6.4-8.9)
[2018-07-17 00:07] LABS: Troponin I 0.05 ng/mL (<0.04)
[2018-07-17 02:49] VITALS: BP 182/94
== END 2018-07-17 02:48 | disposition home or self-care (01) ==
LOC: ED 20:51
DX: R51 Headache (principal); T50.905A Adverse effect of unspecified drugs, medicaments and biological substances, initial encounter; R10.9 Unspecified abdominal pain; Z88.2 Allergy status to sulfonamides; I25.10 Atherosclerotic heart disease of native coronary artery without angina pectoris; I10 Essential (primary) hypertension; F17.210 Nicotine dependence, cigarettes, uncomplicated; H53.8 Other visual disturbances; R06.02 Shortness of breath
CPT/HCPCS: 36415; 71046; 80053; 81003; 81015; 82375; 84484; 85025; 93005; 96372; 96374; 99284; J0780; J2060

== ENCOUNTER 2018-07-30 14:35 | Inpatient (IN) | payer MEDICARE, MEDICAID ==
[2018-07-30] MEDS ORDERED: Albuterol/Ipratropium NEB.SOL* Albuterol 2.5 MG/Ipratropium 0.5 MG 3 ML INH ONE (14:43)
--- OUTSIDE RECORDS SUMMARY | 2018-07-30 14:47 | XMS REPORT | Continuity of Care Document ---
:1935 External Reference #:[id number] Author Name Maryann Ortiz Care Team Providers Name Role Phone Nancy Burciaga MD Primary Care Physician Unavailable Payers Date Identification Numbers Payment Provider Subscriber Policy Number: [id number] Medicare Nai Walker PayID: [id number] [address] [place] [address] Policy Number: [id number] Medicaid Nai Walker Group Name: 1 1 [address] PayID: [id number] [place] [address] Advance Directives Description No Information Available Problems Active Problems Provider Date Headache Maxwell Díaz M.D. 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 Onset: 08/20/2016 the pelvic region and thigh Trochanteric bursitis Jennifer Brown M.D. Onset: 08/20/2016 Localized, primary osteoarthritis Jennifer Brown M.D. Onset: 09/24/2016 Dyspnea Bernard Lees M.D., [facility] Onset: 09/29/2016 Aortic valve disorder Bernard Lees M.D., [facility] Onset: 08/25/2017 Family History Date Family Member(s) Observation Comments General non contributory General MFG cancer General Diabetes General Heart Disease General Hypertension General Rheumatoid Arthritis Father Parkinson's Disease Father COPD Mother Diabetes Type II Mother Dementia Mother Malabsorption issues Siblings 3 Siblings brother meningenoma's at age 47;brother of COPD Social History Type Date Description Comments Sex Unknown Marital Status Lives With Alone Occupation Retired Tobacco Use Start: Unknown current cigarette smoker ETOH Use Denies alcohol use Recreational Drug Use Denies Drug Use Tobacco Use Start: Unknown Patient is a current smoker, 1.5 PPD smokes every day Smoking Status Reviewed: 07/24/18 Patient is a current smoker, 1.5 PPD smokes every day Exercise Type/Frequency Exercises sporadically Allergies, Adverse Reactions, Alerts Active Allergies Reaction Severity Comments Date Sulfa Antibiotics swollen togue 01/24/2013 Iodinated Diagnostic Agents Anaphylaxis 01/24/2013 Tetracycline 01/24/2013 Dilantichristianne pruitt 01/24/2013 Depakote 01/14/2015 Zyprexa 01/14/2015 Carbamazapine 08/20/2016 Phenytoin 08/20/2016 Prednisone 07/24/2018 Medications Active Medications SIG Qnty Indications Ordering Date Provider Ipratropium 1 vial in nebulizer 180ml [facility] 01/26/2018 [place]/Albuterol every 6 hours prn MD Roderick Sulfate 0.5-2.5(3)mg/3ML Solution Sodium Chloride use one vial in 240units J44.9 [facility] 12/08/2017 3% nebulizer every 12 MD Roderick Nebulizer hours Nebulizer 1 unit nebulization 1units J44.9 [facility] 12/08/2017 Device with albuterol MD Roderick every 6 hours and as needed Gabapentin 2 cap po three 90caps Unknown 03/22/2017 300mg times daily Capsules Flutter use as instructed 1units J44.9 [facility] 09/16/2014 Device twice a day MD Roderick Fluticasone 2 sprays each Unknown Propionate nostril daily as 50mcg/Act needed Suspension Ondansetron HCL take 1 by mouth as Unknown 8mg need 1-2 x per day Tablets for nausea Mirtazapine 1 by mouth every Unknown 15mg night at bedtime Tablets Imodium A-D 1 capsule after Unknown 2mg each loose bm Capsules Levoxyl take 1 tablet every Unknown 25mcg Tablets morningon an empty stomach Nicotine Unknown 21mg/24HR Patches 24HR Lidocaine apply 1 patch to Unknown 5% Patches affected area once daily remove after 12 hours prn Hydrocortisone apply a small Unknown 2.5% amount to the Cream affected area daily Loperamide HCL 1 cap po every 6 Dauria, Sumi, 2mg hours as needed N.P. Capsules Genteal Severe apply into affected Unknown 0.3% Gel eye if needed Robitussin Cough & 20 milliliters by Unknown Chest Congestion DM mouth every 4 hours Adult as needed 20-400mg/20ML Liquid Tums Extra Strength 2 tablet po three Unknown 750 times daily prn 750mg Chewtabs Vitamin D3 Ultra one by mouth once Unknown Potency monthly [id number] Tablets Ra Allergy Relief 1 by mouth every Unknown 180mg day Tablets Womens One Daily 1 by mouth every Unknown day Tablets Nystatin 5cc swish and spit Unknown [id number] 2 times a day Suspension Metamucil take 1g orally 4x Unknown daily Montelukast Sodium 1 by mouth every Unknown 10mg day Tablets Daily Ava 1 tab daily Unknown Tablets Fluconazole Take 1 Tab as Unknown 150mg Needed Tablets Folic Acid 1 tab daily Unknown 1mg Tablets Systane Instill 1 Drop In Unknown 0.6% Solution Each Eye 3-4 Times A Day Butalbital/Acetaminop 1 po bid prn Unknown hen/Caffeine headache max 3d/wk 50-325-40mg Capsules Vitamin B12 1 by mouth every Unknown 500mcg day Tablets Dicyclomine HCL take one capsule by 40caps Unknown 10mg mouth every six Capsules hours as needed Miralax 17 gm every day as 1mon Unknown [id number] Packet needed Hydrocodone-Acetamino 1 by mouth bid prn. 30tabs Unknown phen 5-325mg Tablets Incruse Ellipta 1 inhalation once Unknown daily 62.5mcg/Inh Aerosol Atorvastatin Calcium 1 by mouth every Unknown day 80mg Tablets Probiotic Gummies 1 by mouth twice Unknown daily Noon and Capsules evening Aspirin Adult Low 1 by mouth every Unknown Dose day 81mg Tablets DR Ventolin HFA 2 puffs by mouth Unknown four times a day as 108(90Base) mcg/Act needed Aerosol Ranitidine HCL as needed Unknown 75mg Tablets Celebrex 1 by mouth every Unknown 200mg Capsules day Metoprolol Tartrate 1 by mouth twice a Unknown day 25mg Tablets Amlodipine Besylate 1 by mouth every Unknown day 10mg Tablets History Medications Nicoderm CQ topical every 28units Carmella 12/08/2017 - 21mg/24HR morning MD Roderick 05/23/2018 Patches 24HR Furosemide 1 by M/W/F Unknown 08/08/2017 - 20mg Tablets 09/01/2017 B12 1 tablet po daily Unknown 12/15/2016 - 05/23/2018 Ergocalciferol Jennifer Brown, 08/20/2016 - [id number] Obi 05/23/2018 Powder Diltiazem CD 1 pill a day 30caps I25.10 Bernard Lees, 03/29/2016 - 180mg Mackenzie Crocker [facility], 06/30/2016 ER 24HR FSCAI Cozaar 1 by mouth every 90tabs Maxwell Jean 10/21/2015 - 50mg Tablets day Obi Díaz 10/20/2015 Zithromax Z-Pool take as directed 6tabs 496 Carmella 06/18/2014 - 250mg MD Roderick 09/15/2014 Tablets Nicotine 1 patch on skin 30units 305.1 Carmella 06/18/2014 - 14mg/24HR every day MD Roderick 12/19/2014 Patches 24HR Nicotine Polacrilex 1 by mouth every 60units 305.1 Carmella 06/18/2014 - 4mg 4 hours as needed MD Roderick 12/19/2014 Lozenges Gabapentin 2 by mouth three 180caps Maxwell Jean 02/01/2014 - 300mg Capsules times a day Obi Díaz 03/19/2016 (replaces 600mg tab) Gabapentin 1 po tid 90tabs Maxwell Jean 01/21/2014 - 600mg Tablets Obi Díaz 03/29/2014 Doxepin HCL 3 tabs by mouth 90caps Maxwell Jean 12/04/2013 - 10mg Capsules every night at Obi Díaz 10/21/2016 bedtime Gabapentin 2 three times a 540caps Maxwell Jean 01/25/2012 - 300mg Capsules day Obi Díaz 01/21/2014 Advair Diskus 1 puff by mouth Unknown - twice a day 10/21/2016 250-50mcg/Dose Aerosol Levothyroxine Sodium Unknown - 05/19/2014 25mcg Tablets Ventolin HFA 2 puffs by mouth Unknown - 108(90Base) four times a day 03/19/2016 mcg/Act Aerosol as needed Mucinex 1 tab by mouth 2x Unknown - 60-600mg Tablets day prn 09/21/2017 ER 12HR Preparation H pt to apply to Unknown - anal area twice a 05/02/2016 1-0.25-14.4-15% Cream day as needed Clarinex 1 by mouth every Unknown - 5mg Tablets day 03/19/2016 Tussin 5 to 10ml orally Unknown - 100mg/5ML Syrup every 4 hours max 05/02/2016 2400 mg/24 hours Vitamin D 2 1 tab po last Unknown - 1.25/69190 Tuesday of month 06/30/2016 Neurontin 2 caps three Unknown - 300mg Capsules times a day 09/21/2017 Senna take one tablet Unknown - 8.6mg Tablets by mouth at 11/20/2016 bedtime (constipation) Cozaar 1 by mouth every Unknown - 50mg Tablets day 03/19/2016 Stool Softener 1 by mouth daily Unknown - 100mg 11/20/2016 Capsules Proair HFA as needed Unknown - 05/02/2016 Fexofenadine HCL 1 by mouth every Unknown - 90mg day 12/07/2017 Tablets Magnesium Citrate 5 tabs Unknown - 100mg 06/30/2016 Tablets Clopidogrel Bisulfate 1 by mouth every Unknown - day 06/30/2016 75mg Tablets Daliresp daily Unknown - 500mg 09/21/2017 Singulair 1 by mouth every Unknown - 10mg Tablets day 08/15/2017 Umeclidinium Unknown - 07/23/2018 Losartan Potassium 1 by mouth every Unknown - 25mg day 08/24/2017 Tablets Buspirone HCL 1 by mouth twice Unknown - 10mg a day 12/07/2017 Tablets Fioricet 1 by mouth twice Unknown - 50-300-40mg a day as needed 12/07/2017 Capsules headache max 2 days/wk Guaifenesin twice daily Unknown - 400mg Tablets 09/21/2017 Silenor take 2 tablet po Unknown - 6mg Tablets at bedtime ( Not 01/25/2018 Taking, Last taken 2 days ago ) Ipratropium 1 twice a day as Unknown - [place]/Albuterol needed 01/25/2018 Sulfate Amlodipine Besylate 1 tab daily Nancy Burciaga, - 10mg MD 08/22/2013 Tablets Symbicort daily Unknown - 160-4.5mcg/Act 05/19/2014 Aerosol Proair HFA Inhale 2 Puffs Unknown - 108(90Base) With Adapter 6 To 03/19/2016 mcg/Act Aerosol 10 Times A Day as Needed After 1... Calcitrate 1 tab daily Unknown - [id number] 05/19/2014 Tablets Nystatin as needed Unknown - [id number] 02/27/2016 Suspension Spiriva Handihaler inhale daily Unknown - 18mcg 03/19/2016 Capsules Desloratadine take 1 tablet by Unknown - 5mg Tablets mouth once daily 03/19/2016 Montelukast Sodium 1 tab daily Alan Hernández, - 10mg MD 12/07/2017 Tablets Alprazolam 1 tab po tid as Unknown - 0.5mg Tablets needed 10/20/2016 Losartan Potassium 1 tab daily Unknown - 25mg 06/30/2016 Tablets Omeprazole 1 tab daily Unknown - 20mg Capsules 09/01/2017 Theophylline CR 1 tab daily Unknown - 200mg 05/02/2016 Tablets ER 12HR Synthroid Unknown - 05/19/2014 Aspirin 1 by mouth every Unknown - 81mg Chewtabs day 11/29/2013 Proctosol HC apply twice a day 60gm Unknown - 2.5% Cream as needed 02/27/2016 Flonase 1 intranasal puff 1units Unknown - 50mcg/Act to each nostril 03/01/2016 Suspension daily Fleet Enema [address] of 3units Unknown - 7-19GM/118ML rectum as needed 05/02/2016 Enema Multi For Her 50+ 1 by mouth every Unknown - day 03/19/2016 Tablets Colace 1 by mouth daily 60caps Unknown - 100mg Capsules 03/19/2016 Duoneb 1 dose via 90ml Unknown - 0.5-2.5(3)mg/3ML nebulizer 4 times 02/27/2016 Solution daily as needed Cetaphil apply twice a day Unknown - Cream prn 03/19/2016 Vitamin D2 1.25mg once a Unknown - 400Unit week for 8 weeks 12/19/2014 Tablets then once a month Zofran Odt take 1 tab by 28tabs Unknown - 4mg Tablets mouth q6 hours as 05/02/2016 Dispers needed nausea Naproxen Sodium 1 po bid prn Unknown - 220mg 05/19/2014 Capsules Levothyroxine Sodium 1 PO qd Unknown - 07/24/2017 25mcg Tablets Medications Administered in Office Medication SIG Qnty Indications Ordering Provider Date Depomedrol 40MG Jennifer Brown M.D. 07/25/2017 Injection Synvisc Or Synvisc-One Jennifer Brown M.D. 01/10/2017 Injection 1 MG Injection Synvisc Or Synvisc-One Jennifer Brown M.D. 01/10/2017 Injection 1 MG Injection Synvisc Or Synvisc-One Jennifer Brown M.D. 12/31/2016 Injection 1 MG Injection Synvisc Or Synvisc-One Jennifer Brown M.D. 12/31/2016 Injection 1 MG Injection Synvisc Or Synvisc-One Jennifer Brown M.D. 12/24/2016 Injection 1 MG Injection Synvisc Or Synvisc-One Jennifer Brown M.D. 12/24/2016 Injection 1 MG Injection Depomedrol 40MG Jennifer Brown M.D. 12/10/2016 Injection Depomedrol 40MG Jennifer Brown M.D. 09/24/2016 Injection Depomedrol 40MG Jennifer Brown M.D. 09/24/2016 Injection Depomedrol 40MG Jennifer Brown M.D. 08/27/2016 Injection Depomedrol 40MG Jennifer Brown M.D. 08/20/2016 Injection Depomedrol 80MG Enid Aguilar M.D. 11/29/2013 Injection Giulianaomedrol 80MG Enid Aguilar M.D. 03/29/2013 Injection Immunizations CPT Code Status Date Vaccine Lot # [id number] Given 06/18/2014 Fluvirin Im 3Yrs And Older Vital Signs Date Vital Result Comment 07/24/2018 2:03pm Height 61 inches 5'1" Weight 109.00 lb Heart Rate 66 /min BP Systolic Sitting 122 mmHg Rue regular cuff BP Diastolic Sitting 66 mmHg Rue regular cuff Respiratory Rate 12 /min O2 % BldC Oximetry 93 % BMI (Body Mass Index) 20.6 kg/m2 05/24/2018 3:42pm Height 61 inches 5'1" Weight 106.00 lb Heart Rate 80 /min BP Systolic Sitting 148 mmHg ra< Reg BP Diastolic Sitting 60 mmHg ra< Reg O2 % BldC Oximetry 92 % room air BMI (Body Mass Index) 20.0 kg/m2 Ejection Fraction 60-65% 09/08/17 echo 01/26/2018 1:07pm Height 61 inches 5'1" Weight 105.00 lb Heart Rate 64 /min BP Systolic Sitting 92 mmHg BP Diastolic Sitting 52 mmHg Respiratory Rate 14 /min O2 % BldC Oximetry 96 % BMI (Body Mass Index) 19.8 kg/m2 12/08/2017 12:24pm Height 61 inches 5'1" Weight 108.00 lb Heart Rate 56 /min BP Systolic Sitting 126 mmHg BP Diastolic Sitting 70 mmHg Respiratory Rate 14 /min O2 % BldC Oximetry 95 % BMI (Body Mass Index) 20.4 kg/m2 Neck Circumference in inches 13 09/26/2017 2:13pm Height 61 inches 5'1" Weight 111.00 lb w/ shoes Heart Rate 56 /min BP Systolic Sitting 112 mmHg lue rg cuff BP Diastolic Sitting 50 mmHg lue rg cuff BP Systolic Standing 112 mmHg lue rg cuff BP Diastolic Standing 52 mmHg lue rg cuff Respiratory Rate 18 /min BMI (Body Mass Index) 21.0 kg/m2 Ejection Fraction 60-65% echo 09/08/17 09/02/2017 2:45pm Height 61 inches 5'1" Weight 112.25 lb Heart Rate 64 /min BP Systolic 122 mmHg BP Diastolic 62 mmHg BMI (Body Mass Index) 21.2 kg/m2 08/25/2017 1:36pm Height 61 inches 5'1" Weight 113.38 lb with shoes Heart Rate 60 /min BP Systolic Sitting 110 mmHg Rue reg cuff BP Diastolic Sitting 60 mmHg Rue reg cuff BP Systolic Standing 110 mmHg Rue reg cuff BP Diastolic Standing 54 mmHg Rue reg cuff Respiratory Rate 16 /min BMI (Body Mass Index) 21.4 kg/m2 Ejection Fraction 60-65% date 04/18/17 ECHO 07/25/2017 2:18pm Height 61 inches 5'1" Weight 112.00 lb BP Systolic 112 mmHg BP Diastolic 58 mmHg Body Temperature 97.6 F BMI (Body Mass Index) 21.2 kg/m2 01/10/2017 3:05pm Height 60.5 inches 5'0.50" Weight 104.00 lb Heart Rate 69 /min BP Systolic 119 mmHg BP Diastolic 68 mmHg BMI (Body Mass Index) 20.0 kg/m2 12/31/2016 3:30pm Height 60.5 inches 5'0.50" Weight 104.00 lb Heart Rate 64 /min BP Systolic 116 mmHg BP Diastolic 63 mmHg Body Temperature 98.1 F Pain Level 0 BMI (Body Mass Index) 20.0 kg/m2 12/24/2016 3:32pm Height 60.5 inches 5'0.50" Weight 104.00 lb Heart Rate 61 /min BP Systolic 98 mmHg BP Diastolic 58 mmHg Pain Level 5 BMI (Body Mass Index) 20.0 kg/m2 12/10/2016 1:28pm Height 60.5 inches 5'0.50" Weight 101.00 lb Heart Rate 76 /min BP Systolic 88 mmHg BP Diastolic 59 mmHg Body Temperature 98.1 F Pain Level 8 BMI (Body Mass Index) 19.4 kg/m2 10/22/2016 3:48pm Height 60.5 inches 5'0.50" Weight 101.00 lb Heart Rate 68 /min BP Systolic Sitting 118 mmHg BP Diastolic Sitting 60 mmHg Respiratory Rate 15 /min BMI (Body Mass Index) 19.4 kg/m2 09/29/2016 1:14pm Height 60.5 inches 5'0.50" Weight 99.00 lb Heart Rate 64 /min BP Systolic Sitting 118 mmHg Ra, regular BP Diastolic Sitting 62 mmHg Ra, regular BP Systolic Standing 112 mmHg Ra, regular BP Diastolic Standing 60 mmHg Ra, regular BMI (Body Mass Index) 19.0 kg/m2 Ejection Fraction 60-65% echo 04/15/16 09/24/2016 2:09pm Height 60.5 inches 5'0.50" Weight 99.00 lb Heart Rate 67 /min BP Systolic 102 mmHg BP Diastolic 63 mmHg Pain Level 8 BMI (Body Mass Index) 19.0 kg/m2 08/27/2016 11:19am Height 61 inches 5'1" Weight 95.00 lb Heart Rate 66 /min BP Systolic 124 mmHg BP Diastolic 67 mmHg Body Temperature 97.7 F Pain Level 8 BMI (Body Mass Index) 17.9 kg/m2 08/20/2016 1:14pm Height 61 inches 5'1" Weight 99.00 lb Heart Rate 99 /min BP Systolic 120 mmHg BP Diastolic 64 mmHg Body Temperature 97.9 F Pain Level 8 BMI (Body Mass Index) 18.7 kg/m2 03/29/2016 1:55pm Height 60.5 inches 5'0.50" Weight 95.00 lb w/ shoes Heart Rate 98 /min BP Systolic Sitting 126 mmHg Rue, reg cuff BP Diastolic Sitting 60 mmHg Rue, reg cuff BP Systolic Standing 108 mmHg Rue BP Diastolic Standing 50 mmHg Rue Respiratory Rate 16 /min BMI (Body Mass Index) 18.2 kg/m2 Ejection Fraction 55-60% as of 02/09/16 echo 10/21/2015 10:52am Height 60.5 inches 5'0.50" Weight 108.00 lb Heart Rate 84 /min BP Systolic Sitting 122 mmHg BP Diastolic Sitting 68 mmHg Respiratory Rate 14 /min BMI (Body Mass Index) 20.7 kg/m2 01/14/2015 9:55am Height 60.5 inches 5'0.50" Weight 105.00 lb Heart Rate 84 /min BP Systolic Sitting 158 mmHg BP Diastolic Sitting 64 mmHg Respiratory Rate 16 /min BMI (Body Mass Index) 20.2 kg/m2 09/16/2014 1:20pm Heart Rate 76 /min BP Systolic Sitting 124 mmHg BP Diastolic Sitting 62 mmHg Respiratory Rate 20 /min O2 % BldC Oximetry 96 % 06/18/2014 11:16am Height 60.5 inches 5'0.50" Weight 104.00 lb Heart Rate 79 /min BP Systolic Sitting 128 mmHg BP Diastolic Sitting 62 mmHg Respiratory Rate 20 /min Body Temperature 97.5 F O2 % BldC Oximetry 98 % BMI (Body Mass Index) 20.0 kg/m2 06/13/2014 11:06am Height 60.5 inches 5'0.50" Weight 105.00 lb Heart Rate 68 /min BP Systolic Sitting 128 mmHg BP Diastolic Sitting 56 mmHg Respiratory Rate 16 /min BMI (Body Mass Index) 20.2 kg/m2 12/04/2013 11:59am Height 60.5 inches 5'0.50" Weight 100.12 lb Heart Rate 88 /min BP Systolic Sitting 180 mmHg BP Diastolic Sitting 82 mmHg Respiratory Rate 16 /min BMI (Body Mass Index) 19.2 kg/m2 11/29/2013 10:56am Height 60.5 inches 5'0.50" Weight 104.00 lb Heart Rate 78 /min BP Systolic 131 mmHg BP Diastolic 61 mmHg BMI (Body Mass Index) 20.0 kg/m2 11/13/2013 1:24pm Height 60 inches 5'0" Weight 105.00 lb Heart Rate 83 /min BP Systolic 131 mmHg BP Diastolic 67 mmHg BMI (Body Mass Index) 20.5 kg/m2 10/18/2013 10:03am Height 60 inches 5'0" Weight 105.00 lb Pain Level 4 BMI (Body Mass Index) 20.5 kg/m2 08/23/2013 11:49am Height 60 inches 5'0" Weight 105.00 lb Body Temperature 98.0 F Pain Level 0 BMI (Body Mass Index) 20.5 kg/m2 08/02/2013 11:17am Height 60 inches 5'0" Weight 105.00 lb Heart Rate 100 /min BP Systolic 96 mmHg BP Diastolic 61 mmHg BMI (Body Mass Index) 20.5 kg/m2 07/10/2013 10:59am Height 60 inches 5'0" Weight 105.00 lb Heart Rate 100 /min BP Systolic 115 mmHg BP Diastolic 72 mmHg BMI (Body Mass Index) 20.5 kg/m2 03/29/2013 10:47am Height 60 inches 5'0" Weight 112.00 lb Heart Rate 98 /min BP Systolic 125 mmHg BP Diastolic 72 mmHg BMI (Body Mass Index) 21.9 kg/m2 01/24/2013 10:57am Heart Rate 90 /min BP Systolic Sitting 98 mmHg BP Diastolic Sitting 54 mmHg Respiratory Rate 18 /min Results Test Date Facility Test Result H/L Range Note Laboratory test finding 12/04/2013 [facility] LDH 243 U/L N 140-271 [address] [place] [address] [phone] C Reactive Protein 15.96 mg/L High < 5.00 1 Erythrocyte Sed Rate 12 mm/Hr N 0-40 Comp Metabolic Panel 12/04/2013 [facility] Sodium 128 mmol/L Low 133-145 [address] [place] [address] [phone] Potassium 4.5 mmol/L N 3.7-5.6 Chloride 96 mmol/L Low 101-111 Co2 Carbon Dioxide 28 mmol/L N 22-32 Anion Gap 4 mmol/L N 2-11 Glucose 80 mg/dL N 70-100 Blood Urea Nitrogen 12 mg/dL N 6-24 Creatinine 0.80 mg/dL N 0.51-0.95 BUN/Creatinine Ratio 15.0 N 8-20 Calcium 9.2 mg/dL N 8.6-10.3 Total Protein 6.4 g/dL N 6.4-8.9 Albumin 3.5 g/dL N 3.2-5.2 Globulin 2.9 g/dL N 2-4 Albumin/Globulin Ratio 1.2 N 1-3 Total Bilirubin 0.80 mg/dL N 0.2-1.0 Alkaline Phosphatase 251 U/L High 34-104 Alt 13 U/L N 7-52 Ast 18 U/L N 13-39 Egfr Non- 69.2 N >60 Egfr 89.0 N >60 2 Retic Count 12/04/2013 [facility] Retic Count 5.2 % High 0.5- 1.[address] [place] [address] [phone] Corrected Retic Count 3.5 % High 0.5-1.5 Maturation Factor Retic 1.5 N Retic Index 2.30 N Mean Retic Volume 121.4 N Immature Retic Fraction 0.47 N RBC Retic Count 3.00 10^6/uL Low 4.6-6.2 Hematocrit for Retic CNT 30 % Low 35-47 Retic Count 5.2 % High 0.5-1.5 Corrected Retic Count 3.5 % High 0.5-1.5 Maturation Factor Retic 1.5 N Retic Index 2.30 N Mean Retic Volume 121.4 N Immature Retic Fraction 0.47 N RBC Retic Count 3.00 10^6/uL Low 4.6-6.2 Hematocrit for Retic CNT 30 % Low 35-47 CBC Auto Diff 12/04/2013 [facility] White Blood 9.1 10^3/uL N 4.8-10.[address] [place] [address] [phone] Red Blood Count 3.00 10^6/uL Low 4.0-5.4 Hemoglobin 10.7 g/dL Low 12.0-16.0 Hematocrit 30 % Low 35-47 Mean Corpuscular Volume 100 fL High 80-97 Mean Corpuscular Hemoglobin 36 pg High 27-31 Mean Corpuscular HGB Conc 35 g/dL N 31-36 Red Cell Distribution Width 16 % High 10.5-15 Platelet Count 340 10^3/uL N 150-450 Mean Platelet Volume 8 um3 N 7.4-10.4 Abs Neutrophils 6.3 10^3/uL N 1.5-7.7 Abs Lymphocytes 1.9 10^3/uL N 1.0-4.8 Abs Monocytes 0.7 10^3/uL N 0-0.8 Abs Eosinophils 0.1 10^3/uL N 0-0.6 Abs Basophils 0.1 10^3/uL N 0-0.2 Abs Nucleated RBC 0.01 10^3/uL N Granulocyte % 69.3 % N 38-83 Lymphocyte % 20.5 % Low 25-47 Monocyte % 7.9 % N 1-9 Eosinophil % 0.9 % N 0-6 Basophil % 1.4 % N 0-2 Nucleated Red Blood Cells % 0.1 N Laboratory test 11/20/2013 [facility] C Reactive 9.69 mg/L High < 5.00 3 finding [address] [facility] [place] [address] [phone] Lyme Disease Serology Negative N Negative 4 Basic Metabolic 11/20/2013 [facility] Sodium 130 mmol/L Low 133-145 Panel [address] [place] [address] [phone] Potassium 5.4 mmol/L N 3.7-5.6 Chloride 100 mmol/L Low 101-111 Co2 Carbon Dioxide 28 mmol/L N 22-32 Anion Gap 2 mmol/L N 2-11 Glucose 90 mg/dL N 70-100 Blood Urea Nitrogen 9 mg/dL N 6-24 Creatinine 0.86 mg/dL N 0.51-0.95 BUN/Creatinine Ratio 10.5 N 8-20 Calcium 8.8 mg/dL N 8.6-10.3 Egfr Non- 63.7 N >60 Egfr 81.9 N >60 5 1 Acute inflammation: >10.00 2 Because ethnic data is not always readily available, this report includes an eGFR for both -Americans and non- Americans. The National Kidney Disease Education Program (NKDEP) does not endorse the use of the MDRD equation for patients that are not between the ages of 18 and 70, are , have extremes of body size, muscle mass, or nutritional status, or are non- or non-. According to the National Kidney Foundation, irrespective of diagnosis, the stage of the disease is based on the level of kidney function: Stage Description GFR(mL/min/1.73 m(2)) 1 Kidney damage with normal or decreased GFR 90 2 Kidney damage with mild decrease in GFR 60-89 3 Moderate decrease in GFR 30-59 4 Severe decrease in GFR 15-29 5 Kidney failure <15 (or dialysis) 3 Acute inflammation: >10.00 4 Serologic response to B. burgdorferi infection is not detected, but cannot rule out early infection during which low or undetectable antibody levels to B. burgdorferi may be present. If clinically indicated, a new serum specimen should be submitted in 7-14 days. Test Performed by: [place] [address] [employer]: Ej Lara III, M.D. 5 Because ethnic data is not always readily available, this report includes an eGFR for both -Americans and non- Americans. The National Kidney Disease Education Program (NKDEP) does not endorse the use of the MDRD equation for patients that are not between the ages of 18 and 70, are , have extremes of body size, muscle mass, or nutritional status, or are non- or non-. According to the National Kidney Foundation, irrespective of diagnosis, the stage of the disease is based on the level of kidney function: Stage Description GFR(mL/min/1.73 m(2)) 1 Kidney damage with normal or decreased GFR 90 2 Kidney damage with mild decrease in GFR 60-89 3 Moderate decrease in GFR 30-59 4 Severe decrease in GFR 15-29 5 Kidney failure <15 (or dialysis) Procedures Date Code Description Status 06/07/2018 40642 ECHO Transthoracic, Real-Time 2D With Doppler And Color Completed Flow 06/07/2018 40084 ECHO Transthoracic, Real-Time 2D With Doppler And Color Completed Flow 05/24/2018 12882 EKG Tracing & Interpretation Completed 12/26/2017 16235 Diffusing Capacity Completed 12/26/2017 30018 Plethysmography Determination Lung Volumes & Per Airway Completed Resist 12/26/2017 67461 Pulmonary Stress Testing, Inc Measurement Heart Rate, Completed Oximetry 09/08/2017 56410 ECHO Transthorasic Realtime 2D W Doppler & Color Flow Hosp Completed 08/25/2017 23190 EKG Tracing & Interpretation Completed 07/25/201791840 Injection Single Tendon Origin/Insertion Completed 04/18/2017 35182 ECHO Transthorasic Realtime 2D W Doppler & Color Flow Hosp Completed 01/10/201715161 Inject/Drain Joint/Bursa Major W/O US Completed 12/31/201617337 Inject/Drain Joint/Bursa Major W/O US Completed 12/24/201620784 Inject/Drain Joint/Bursa Major W/O US Completed 12/10/201620696 Inject/Drain Joint/Bursa Major W/O US Completed 09/24/201627098 Inject/Drain Joint/Bursa Major W/O US Completed 08/27/201680275 Inject/Drain Joint/Bursa Major W/O US Completed 08/20/2016 57056 Inject/Drain Joint/Bursa Major W/O US Completed 04/16/2016 79851 EKG, Interpretation Only Completed 04/15/2016 63921 ECHO Transthorasic Realtime 2D W Doppler & Color Flow Hosp Completed 04/14/2016 37407 EKG, Interpretation Only Completed 04/12/2016 59662 EKG, Interpretation Only Completed 03/29/2016 46875 EKG Tracing & Interpretation Completed 02/11/2016 82081 EKG, Interpretation Only Completed 02/11/2016 26953 Cath PLMT&NJX L Ventriculog Img S&I Completed 02/11/2016 67803 Intravascular Blood Flow Velocity Completed 02/10/2016 87373 EKG, Interpretation Only Completed 02/09/2016 44553 ECHO Transthorasic Realtime 2D W Doppler & Color Flow Hosp Completed 02/09/2016 13987 EKG, Interpretation Only Completed 07/31/2014 83762 EKG, Interpretation Only Completed 07/22/2014 19705 EEG Recording Awake & Drowsy Completed 07/20/2014 08421 EKG, Interpretation Only Completed 07/08/2014 58573 EKG, Interpretation Only Completed 06/18/2014 42893 Pulmonary Stress Test Simple Completed 06/11/2014 49749 Diffusing Capacity Completed 06/11/2014 41944 Pulmonary Function><Bronchodil Completed 11/29/201338916 Inject Tendon Sheath Or Ligament Aponeurosis Eg Plantar Completed Fascia 08/23/2013 31807 Rad Exam; Ankle Comp Completed 08/02/2013 65354 Rad Exam; Ankle Comp Completed 08/02/2013 86064 Rad Exam; Ankle Comp Completed 08/02/2013 90572 Short Leg Cast Completed 07/10/2013 71760 Closed TX Bimalleolar FX W/O Manip Completed 03/29/2013 47899 Inject Tendon Sheath Or Ligament Aponeurosis Eg Plantar Completed Fascia 07/21/2012 24714 Treadmill Interp/Report Only Completed 07/21/2012 99389 Stress Test Supervsn W/Out I/R Completed 07/13/2012 45206 ECHO Transthorasic Realtime 2D W Doppler & Color Flow Hosp Completed 07/07/2012 00937 EKG Tracing & Interpretation Completed 06/04/2002 51788 ECHO/Stress Completed 06/04/2002 57037 Treadmill Interp/Report Only Completed 06/04/2002 06664 Stress Test Supervsn W/Out I/R Completed Encounters Type Date Location Provider Dx Diagnosis Office Visit 05/24/2018 [facility] Katherine Jean R06.02 Shortness of 4:00p Obi Jacobsen breath I25.10 Athscl heart disease of [place] coronary artery w/o ang pctrs I35.2 Nonrheumatic aortic (valve) stenosis with insufficiency I34.0 Nonrheumatic mitral (valve) insufficiency I36.1 Nonrheumatic tricuspid (valve) insufficiency E78.5 Hyperlipidemia, unspecified F17.210 Nicotine dependence, cigarettes, uncomplicated J44.9 Chronic obstructive pulmonary disease, unspecified R94.31 Abnormal electrocardiogram [ECG] [EKG] Office Visit 01/26/2018 1:45p Pulmonology And Carmella R06.02 Shortness of Sleep Services Of MD Roderick breath Roofing Apprentice J44.9 Chronic obstructive pulmonary disease, unspecified F17.210 Nicotine dependence, cigarettes, uncomplicated Office Visit 12/08/2017 1:00p Pulmonology And Carmella R06.02 Shortness of Sleep Services Of MD Roderick breath Roofing Apprentice J44.9 Chronic obstructive pulmonary disease, unspecified F17.210 Nicotine dependence, cigarettes, uncomplicated Office Visit 09/26/2017 3:00p [facility] Bernard Lees, R06.02 Shortness of Of Roofing Apprentice AT [facility] Obi, FACC, breath FSCAI I35.0 Nonrheumatic aortic (valve) stenosis Z72.0 Tobacco use I10 Essential (primary) hypertension Office 09/02/2017 [facility] Maxwell Jean G44.221 Chronic Visit 3:00p Clinic Bisi Díaz. tension-type headache, intractable F41.1 Generalized anxiety disorder G25.0 Essential tremor Office Visit 08/25/2017 2:20p [facility] Bernard Taniak, I35.0 Nonrheumatic Of Roofing Apprentice AT [facility].Tim, [facility], aortic (valve) FSCAI stenosis I25.10 Athscl heart disease of [place] coronary artery w/o ang pctrs E78.5 Hyperlipidemia, unspecified I10 Essential (primary) hypertension R06.02 Shortness of breath Office Visit 07/30/2017 8:52a [facility] Kuldeep Jc, I50.31 Acute diastolic Assoc,tate HAYS (congestive) heart Hospitalists failure J44.9 Chronic obstructive pulmonary disease, unspecified I25.10 Athscl heart disease of [place] coronary artery w/o ang pctrs I10 Essential (primary) hypertension Office Visit 07/29/2017 [facility] Reny Castillo, I50.31 Acute diastolic 8:46a [facility] M.D. (congestive) Hospitalists heart failure J44.9 Chronic obstructive pulmonary disease, unspecified I25.10 Athscl heart disease of [place] coronary artery w/o ang pctrs I10 Essential (primary) hypertension Office Visit 07/28/2017 [facility] Gómez J18.9 Pneumonia, 8:43a Assoc,tate Hernandez N.P. unspecified Hospitalists organism J44.9 Chronic obstructive pulmonary disease, unspecified I25.10 Athscl heart disease of [place] coronary artery w/o ang pctrs I10 Essential (primary) hypertension Office Visit 07/25/2017 2:15p Orthopedic Jennifer Brown, M70.62 Trochanteric Services Of Obi bursitis, left hip C.M.A. M70.61 Trochanteric bursitis, right hip M25.552 Pain in left hip Office Visit 04/20/2017 [facility] Reny Castillo, J44.1 Chronic 10:39a Assoctate M.D. obstructive Hospitalists pulmonary disease w (acute) exacerbation I50.9 Heart failure, unspecified G89.29 Other chronic pain I35.0 Nonrheumatic aortic (valve) stenosis Office Visit 04/19/2017 [facility] Reny Castillo, J44.1 Chronic 10:37a [facility] M.D. obstructive Hospitalists pulmonary disease w (acute) exacerbation I50.9 Heart failure, unspecified G89.29 Other chronic pain I35.0 Nonrheumatic aortic (valve) stenosis Office Visit 04/18/2017 [facility] Addis J44.1 Chronic 10:33a Assoc,tate Hyman, obstructive Hospitalists [employer] pulmonary disease w (acute) exacerbation I50.9 Heart failure, unspecified G89.29 Other chronic pain I35.0 Nonrheumatic aortic (valve) stenosis Office Visit 12/10/2016 1:45p Orthopedic Services Jennifer Brown, M25.562 Pain in left Of C.M.A. M.D. knee M25.561 Pain in right knee M17.0 Bilateral primary osteoarthritis of knee M25.551 Pain in right hip M25.552 Pain in left hip M16.0 Bilateral primary osteoarthritis of hip M70.62 Trochanteric bursitis, left hip M70.61 Trochanteric bursitis, right hip Office 10/22/2016 [facility] Maxwell Jean G44.229 Chronic Visit 3:30p Clinic Obi Díaz tension-type headache, not intractable Office 09/29/2016 [facility] Of Bernard Lees, I25.10 Athnjl heart Visit 1:20p Roofing Apprentice AT [facility] Obi, FACC, disease of [place] FSCAI coronary artery w/o ang pctrs I10 Essential (primary) hypertension R06.02 Shortness of breath Office Visit 09/24/2016 2:00p Orthopedic Services Jennifer Brown, M25.562 Pain in left Of C.M.A. M.D. knee M25.561 Pain in right knee M25.462 Effusion, left knee M25.461 Effusion, right knee M17.0 Bilateral primary osteoarthritis of knee M25.571 Pain in right ankle and joints of right foot Office Visit 08/27/2016 11:00a Orthopedic Services Jennifer Kevin, M25.551 Pain in right Of C.M.A. M.D. hip M25.552 Pain in left hip M16.11 Unilateral primary osteoarthritis, right hip M16.12 Unilateral primary osteoarthritis, left hip M70.62 Trochanteric bursitis, left hip M70.61 Trochanteric bursitis, right hip Office Visit 08/20/2016 1:00p Orthopedic Services Jennifer Brown, M25.551 Pain in right Of C.M.A. M.D. hip M25.552 Pain in left hip M16.11 Unilateral primary osteoarthritis, right hip M16.12 Unilateral primary osteoarthritis, left hip M70.62 Trochanteric bursitis, left hip M70.61 Trochanteric bursitis, right hip Office Visit 04/21/2016 9:07a [facility] Vandana I26.99 Other pulmonary Assoc,tate Sy M.D. embolism Hospitalists without acute cor pulmonale K81.0 Acute cholecystitis I25.118 Athscl heart disease of [place] cor art w [facility] ang pctrs J44.9 Chronic obstructive pulmonary disease, unspecified Office Visit 04/20/2016 9:06a [facility] Vandana I26.99 Other pulmonary Assoc,tate Sy M.D. embolism Hospitalists without acute cor pulmonale K81.0 Acute cholecystitis I25.118 Athscl heart disease of [place] cor art w ot ang pctrs J44.9 Chronic obstructive pulmonary disease, unspecified Office Visit 04/19/2016 12:47p [facility] Pilar Caban, I26.99 Other pulmonary Assoc, embolism Hospitalists without acute cor pulmonale K81.0 Acute cholecystitis I25.118 Athscl heart disease of [place] cor art w oth ang pctrs J44.9 Chronic obstructive pulmonary disease, unspecified Office Visit 04/18/2016 9:05a [facility] Vandana I26.99 Other pulmonary Assoc,tate Sy M.D. embolism Hospitalists without acute cor pulmonale K81.0 Acute cholecystitis I25.118 Athscl heart disease of [place] cor art w ot ang pctrs J44.9 Chronic obstructive pulmonary disease, unspecified Office Visit 04/17/2016 [facility] Vandana K81.0 Acute cholecystitis 8:11a tate Prescott M.D. Hospitalists I25.118 Athscl heart disease of [place] cor art w oth ang pctrs J44.9 Chronic obstructive pulmonary disease, unspecified Office Visit 04/16/2016 [facility] Vandana K81.0 Acute cholecystitis 8:09a tate Prescott M.D. Hospitalists I25.118 Athscl heart disease of [place] cor art w oth ang pctrs J44.9 Chronic obstructive pulmonary disease, unspecified Office Visit 04/15/2016 [facility] Vandana K81.0 Acute cholecystitis 8:08a tate Prescott M.D. Hospitalists I25.118 Athscl heart disease of [place] cor art w ot ang pctrs J44.9 Chronic obstructive pulmonary disease, unspecified I35.0 Nonrheumatic aortic (valve) stenosis Office Visit 04/14/2016 [facility] Vandana K81.0 Acute cholecystitis 8:05a tate Prescott M.D. Hospitalists I21.4 Non-St elevation (Nstemi) myocardial infarction J44.9 Chronic obstructive pulmonary disease, unspecified I35.0 Nonrheumatic aortic (valve) stenosis Office Visit 04/14/2016 7:00a Kady Villarreal K81.9 Cholecystitis, Associates Of MD Rahel, unspecified Roofing Apprentice FACS Office Visit 04/13/2016 11:40a Catrachito Lopez R79.89 Other specified Cardiology Of MD Jose Guadalupe, abnormal findings of Roofing Apprentice AT [facility], [facility] blood chemistry I25.10 Athscl heart disease of [place] coronary artery w/o ang pctrs Office Visit 04/13/2016 [facility] [place] K81.0 Acute cholecystitis 8:04a tate Prescott M.D. Hospitalists I21.4 Non-St elevation (Nstemi) myocardial infarction J44.9 Chronic obstructive pulmonary disease, unspecified I35.0 Nonrheumatic aortic (valve) stenosis Office 04/12/2016 [facility] Magdaleno K81.0 Acute Visit 8:00a tate Prescott PA cholecystitis Hospitalists I21.4 Non-St elevation (Nstemi) myocardial infarction J44.9 Chronic obstructive pulmonary disease, unspecified I35.0 Nonrheumatic aortic (valve) stenosis Office Visit 03/29/2016 1:40p [facility] Bernard Lees, I25.10 Athscl heart Of Roofing Apprentice AT [facility] Obi, FAC, disease of FSCAI [place] coronary artery w/o ang pctrs E78.5 Hyperlipidemia, unspecified I10 Essential (primary) hypertension R94.31 Abnormal electrocardiogram [ECG] [EKG] Office Visit 03/16/2016 2:24p [facility] Reny Castillo, R06.02 Shortness of tate Prescott M.D. breath Hospitalists R07.9 Chest pain, unspecified J43.9 Emphysema, unspecified Office Visit 02/23/2016 [facility] N12 Tubulo-interstitial 9:13a tate Prescott M.D. nephritis, not spcf as Hospitalists acute or chronic E78.5 Hyperlipidemia, unspecified I10 Essential (primary) hypertension Office Visit 02/22/2016 [facility] N12 Tubulo-interstitial 9:13a tate Prescott M.D. nephritis, not spcf as Hospitalists acute or chronic E78.5 Hyperlipidemia, unspecified N39.0 Urinary tract infection, site not specified I10 Essential (primary) hypertension Office Visit 02/21/2016 [facility] N12 Tubulo-interstitial 9:13a tate Prescott M.D. nephritis, not spcf as Hospitalists acute or chronic E78.5 Hyperlipidemia, unspecified N39.0 Urinary tract infection, site not specified I10 Essential (primary) hypertension Office Visit 02/20/2016 [facility] N12 Tubulo-interstitial 9:11a tate Prescott M.D. nephritis, not spcf as Hospitalists acute or chronic E78.5 Hyperlipidemia, unspecified N39.0 Urinary tract infection, site not specified I10 Essential (primary) hypertension Office Visit 02/19/2016 [facility] N12 Tubulo-interstitial 9:11a tate Prescott M.D. nephritis, not spcf as Hospitalists acute or chronic E78.5 Hyperlipidemia, unspecified N39.0 Urinary tract infection, site not specified I10 Essential (primary) hypertension Office Visit 02/19/2016 [facility] Juan Dumont N12 Tubulo-interstitial 11:37a For Infectious Obi Cruz nephritis, not spcf as Diseases acute or chronic B96.20 Unsp Escherichia coli as the cause of diseases classd elswhr D72.829 Elevated white blood cell count, unspecified R19.7 Diarrhea, unspecified Office Visit 02/18/2016 [facility] Vandana N12 Tubulo-interstitial 9:11a Assoc,tate Sy M.D. nephritis, not spcf as Hospitalists acute or chronic E78.5 Hyperlipidemia, unspecified I10 Essential (primary) hypertension Office Visit 02/17/2016 9:10a [facility] Vandana J44.1 Chronic Assoc,tate Sy M.D. obstructive Hospitalists pulmonary disease w (acute) exacerbation N39.0 Urinary tract infection, site not specified E78.5 Hyperlipidemia, unspecified I10 Essential (primary) hypertension Office Visit 02/17/2016 [facility] Juan Dumont N12 Tubulo-interstitial 10:23a For Infectious Obi Cruz nephritis, not spcf as Diseases acute or chronic Z87.440 Personal history of urinary (tract) infections Z90.5 Acquired absence of kidney Office Visit 02/16/2016 [facility] Radha J44.1 Chronic 9:07a Assoc,tate Champagne NP obstructive Hospitalists pulmonary disease w (acute) exacerbation N39.0 Urinary tract infection, site not specified I10 Essential (primary) hypertension Office Visit 02/13/2016 2:58p [facility] Bernard Lees, I21.4 Non- St elevation Of [employer]ing Apprentice [facility], (Nstemi) [facility] myocardial infarction Office Visit 02/13/2016 8:39a [facility] Akhil I21.4 Non-St elevation Assoc,tate Barron M.D. (Nstemi) Hospitalists myocardial infarction J43.9 Emphysema, unspecified J18.9 Pneumonia, unspecified organism E87.1 Hypo-osmolality and hyponatremia Office Visit 02/12/2016 2:56p [facility] Bernard Lees, I21.4 Non- St elevation Of [employer]ofing Apprentice [facility], [facility], (Nstemi) [facility] myocardial infarction Office Visit 02/12/2016 8:39a [facility] Akhil I21.4 Non-St elevation Assoc,tate Barron M.D. (Nstemi) Hospitalists myocardial infarction J43.9 Emphysema, unspecified J18.9 Pneumonia, unspecified organism E87.1 Hypo-osmolality and hyponatremia Office Visit 02/11/2016 8:39a [facility] Akhil I21.4 Non-St elevation Assoc,tate Barron M.D. (Nstemi) Hospitalists myocardial infarction J43.9 Emphysema, unspecified J18.9 Pneumonia, unspecified organism E87.1 Hypo-osmolality and hyponatremia Office Visit 02/10/2016 8:38a [facility] Akhil I21.4 Non-St elevation Assoc,tate Barron M.D. (Nstemi) Hospitalists myocardial infarction J43.9 Emphysema, unspecified J18.9 Pneumonia, unspecified organism E87.1 Hypo-osmolality and hyponatremia Office Visit 02/09/2016 8:37a [facility] Akhil I21.4 Non-St elevation Assoc,tate Barron M.D. (Nstemi) Hospitalists myocardial infarction J18.9 Pneumonia, unspecified organism J43.9 Emphysema, unspecified E87.1 Hypo-osmolality and hyponatremia Office Visit 02/09/2016 [facility] Of Bernard Lees, R79.89 Other specified 10:53a John AT [facility] Obi, [facility], abnormal FSCAI findings of blood chemistry Office Visit 10/21/2015 [facility] Maxwell Jean G44.229 Chronic 10:15a Clinic Bre tension-type M.D. headache, not intractable Office Visit 01/14/2015 [facility] Maxwell Jean G44.221 Chronic 9:45a Clinic Bre, tension-type M.D. headache, intractable Office Visit 09/16/2014 Pulmonology And Sleep Carmella 496 COPD Airway 1:30p Services Of John Vaughn MD Obstruction Chronic Not Class Elsewhere 305.1 Tobacco Use Disorder 492.8 Emphysema Other Office Visit 08/06/2014 10:57a [facility] [place] 486 Pneumonia Assoc,tate De Los Santos M.D. Organism Unspec Hospitalists 787.91 Diarrhea 790.6 Abnormal Blood Chemistry Other 288.60 Leukocytosis, Unspecified Office Visit 08/05/2014 10:57a [place] [address] Pneumonia Assoc,tate De Los Santos M.D. Organism Unspec Hospitalists 787.91 Diarrhea 790.6 Abnormal Blood Chemistry Other 288.60 Leukocytosis, Unspecified Office Visit 08/04/2014 10:51a [place] [address] Pneumonia Assoc,tate De Los Santos M.D. Organism Unspec Hospitalists 787.91 Diarrhea 790.6 Abnormal Blood Chemistry Other V45.79 Other Acquired Absence Of Organ Office Visit 08/03/2014 10:51a [place] [address] Pneumonia Assoc,tate De Los Santos M.D. Organism Unspec Hospitalists 787.91 Diarrhea 790.6 Abnormal Blood Chemistry Other V45.79 Other Acquired Absence Of Organ Office Visit 08/02/2014 10:50a [place] [address] Pneumonia Assoc,tate De Los Santos M.D. Organism Unspec Hospitalists 787.91 Diarrhea 790.6 Abnormal Blood Chemistry Other V45.79 Other Acquired Absence Of Organ Office Visit 08/01/2014 10:50a [place] [address] Pneumonia Assoc,tate De Los Santos M.D. Organism Unspec Hospitalists 787.91 Diarrhea 790.6 Abnormal Blood Chemistry Other V45.79 Other Acquired Absence Of Organ Office Visit 07/31/2014 10:49a [place] [address] Pneumonia Assoctate M.D. Organism Unspec Hospitalists 787.91 Diarrhea 790.6 Abnormal Blood Chemistry Other V45.79 Other Acquired Absence Of Organ Office Visit 07/31/2014 11:27a [facility] Betty 507.0 Pneumonitis Due Assoctate PA To Inhalation Of Hospitalists Food Or Vomitus V45.79 Other Acquired Absence Of Organ Office Visit 07/30/2014 10:49a [facility], 787.91 Diarrhea Assoctate M.D. 790.6 Abnormal Blood Chemistry Other 288.60 Leukocytosis, Unspecified V45.79 Other Acquired Absence Of Organ Office Visit 07/23/2014 [facility] 518.81 Respiratory 8:42a [facility] M.D. Failure Acute Hospitalists 038.9 Septicemia Unspec 496 COPD Airway Obstruction Chronic Not Class Elsewhere V45.79 Other Acquired Absence Of Organ Office Visit 07/22/2014 [facility] 518.81 Respiratory 6:23a Assoc,tate Corado M.D. Failure Acute Hospitalists 038.9 Septicemia Unspec 496 COPD Airway Obstruction Chronic Not Class Elsewhere V45.79 Other Acquired Absence Of Organ Office Visit 07/20/2014 [facility] 518.81 Respiratory 8:40a Assoc,tate Pearson M.D. Failure Acute Hospitalists 038.9 Septicemia Unspec 496 COPD Airway Obstruction Chronic Not Class Elsewhere V45.79 Other Acquired Absence Of Organ Office Visit 07/19/2014 8:39a [facility] G[facility]me[place] 564.1 Irritable Bowel Assoc,tate Hernandez N.P. 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 339.12 Chronic Tension Type Headache Office Visit 11/13/2013 Orthopedic Akhil Vargas, 715.97 Osteoarthrosis 2:00p Services Of Obi Unspec Genlzd Or C.M.A. Localized Ankle & Foot Office Visit 10/18/2013 Orth[facility] Harinder Veloz, 824.4 FX Ankle 10:30a Services Of Obi Bimalleolar Closed C.M.A. Office Visit 03/29/2013 [facility] [place] 727.03 Trigger Finger 10:30a Services Of Obi Aguilar Acquired C.M.A. Office Visit 01/24/2013 [facility] Maxwell Jean 339.12 Chronic Tension 10:45a Neurologic Obi Díaz Type Headache Services Of [facility] Office Visit 07/07/2012 [facility] Natalie Bello, 786.09 Dyspnea & 2:15p Cardiology Of Obi Respiratory Roofing Apprentice AT [facility] Abnormalities Other 786.59 Pain Chest Other V72.81 Examination Preoperative Cardiovascular 305.1 Tobacco Use Disorder 401.9 Hypertension Unspec Office Visit 01/25/2012 Nilsa Jean 345.40 Local-Related 11:15a Neurologic Obi Díaz Epilepsy W/O Services Of [facility] Mention Of Intractable Epilepsy Plan of Treatment Future Appointment(s):08/31/2018 1:30 pm - Enid Rosales NP at Pulmonology And Sleep [facility]10/06/2018 3:15 pm - Maxwell Díaz M.D. at Neurohospitalist [id number]/24/2018 - Carmella Vaughn MDJ44.9 Chronic obstructive pulmonary disease, unspecifiedNew Orders:Diffusion Capacity, Ordered : 07/24/18Simple Spirometry, Ordered: 07/24/18Overnight Oximetry, Ordered: 07/24Simple Spirometry, Ordered: Minute Walk, Ordered: 07/24/18Follow up :1 month SMF17.210 Nicotine dependence, cigarettes, uncomplicated
--- NOTE | 2018-07-30 14:53 | ED ---
Shortness of Breath - HPI Summary HPI Summary: This patient is a 83 year old female brought in by ambulance to [facility] with a chief complaint of increased SOB since 2 hours ago. Patient has a hx of COPD and smokes daily. Per EMS, patient received NTG to mild relief. The pain is rated 0/10 in severity. Symptoms aggravated by nothing. Symptoms alleviated by NTG. Patient additionally reports fatigue. - History of Current Complaint Chief Complaint: EDShortnessOfBreath Time Seen by Provider: 07/30/18 14:38 Hx Obtained From: Patient Onset/Duration: Sudden Onset, Still Present Timing: Constant Dyspnea At: Rest Alleviating Factors: Other - NTG Associated Signs & Symptoms: Negative - Fever - Allergy/Home Medications Allergies/Adverse Reactions: Allergies Allergy/AdvReac Type Severity Reaction Status Date / Time acetaminophen [From Tylenol] Allergy Unknown Verified 07/30/18 18:22 Reaction Details bupropion [From Wellbutrin] Allergy Unknown Verified 07/30/18 18:22 Reaction Details carbamazepine Allergy Unknown Verified 07/16/18 23:11 Reaction Details cetirizine [From Zyrtec] Allergy Unknown Verified 07/16/18 23:11 Reaction Details clindamycin Allergy Unknown Verified 07/30/18 18:22 Reaction Details divalproex sodium Allergy Unknown Verified 07/16/18 23:11 [From Depakote] Reaction Details fluticasone Allergy Unknown Verified 07/30/18 18:22 [From Advair Diskus] Reaction Details iodine Allergy Unknown Verified 07/16/18 23:11 Reaction Details latex Allergy Unknown Verified 07/16/18 23:11 Reaction Details levofloxacin [From Levaquin] Allergy Unknown Verified 07/30/18 18:22 Reaction Details lidocaine Allergy Unknown Verified 07/30/18 18:22 Reaction Details olanzapine [From Zyprexa] Allergy Unknown Verified 07/16/18 23:11 Reaction Details paroxetine [From Paxil] Allergy Agitation Verified 07/30/18 18:22 phenytoin [From Dilantin] Allergy Unknown Verified 07/16/18 23:11 Reaction Details prednisone Allergy Unknown Verified 07/16/18 23:11 Reaction Details salmeterol Allergy Unknown Verified 07/30/18 18:22 [From Advair Diskus] Reaction Details Sulfa (Sulfonamide Allergy Unknown Verified 07/16/18 23:11 Antibiotics) Reaction Details Tetracyclines Allergy Unknown Verified 07/16/18 23:11 Reaction Details triamcinolone [From Azmacort] Allergy Unknown Verified 07/30/18 18:22 Reaction Details Home Medications: Home Medications Albuterol HFA INHALER* [Ventolin HFA Inhaler*] 2 puff INH Q4H PRN 07/30/18 [ History Confirmed 07/30/18] Dextromethorphan-Guaifenesin [Dextromethorphan/Guaifene 10-100 mg/5Ml] 5 - 10 ml PO Q4H PRN 07/30/18 [History Confirmed 07/30/18] Docusate CAP* [Colace Cap*] 100 mg PO BEDTIME PRN 07/30/18 [History Confirmed ] Guaifen/Dextromethorphan/PE [Mucinex Fast-Max Severe C 5-10-200 mg] 1 tab PO DAILY PRN 07/30/18 [History Confirmed 07/30/18] Hydrocodone/Acetaminophen [Hydrocodone/Acetaminophen 10-325 mg] 1 tab PO TID PRN MDD for 1 week only 07/30/18 [History Confirmed 07/30/18] Hypromellose [Genteal Tears Severe] 1 gm OPHTHALMIC DAILY PRN 07/30/18 [History Confirmed 07/30/18] Ipratropium/Albuterol Sulfate [Iprat-Albut 0.5-3(2.5) mg/3 ml] 1 neb INH BID 03/08 [History Confirmed 07/30/18] Mirtazapine TAB* [Remeron TAB*] 7.5 mg PO QAM 07/30/18 [History Confirmed ] Omeprazole 40 mg PO DAILY 07/30/18 [History Confirmed 07/30/18] PMH/Surg Hx/FS Hx/Imm Hx Previously Healthy: No Endocrine/Hematology History: Reports: Hx Thyroid Disease - HASHIMOTOS, Hx Anemia - CHRONIC HEMOLYTIC ANEMIA Denies: Hx Anticoagulant Therapy, Hx Diabetes Cardiovascular History: Reports: Hx Coronary Artery Disease, Hx Hypercholesterolemia, Hx Hypertension Denies: Hx Pacemaker/ICD Comment Only: Other Cardiovascular Problems/Disorders - HX OF MASTECTOMY Respiratory History: Reports: Hx Asthma, Hx Chronic Bronchitis - not chronic, Hx Chronic Obstructive Pulmonary Disease (COPD) - CAD, Hx Pneumonia, Other Respiratory Problems/Disorders - emphysema GI History: Reports: Hx Gastroesophageal Reflux Disease, Hx Hiatal Hernia, Hx Irritable Bowel, Hx Obstructive Bowel, Other GI Disorders - small bowel obstruction History: Reports: Hx Acute Renal Failure, Hx Kidney Stones, Hx Renal Disease - 1 KIDNEY, Other Problems/Disorders - renal disease Musculoskeletal History: Reports: Hx Arthritis - OSTEOARTHRITIS, Hx Osteoporosis Denies: Hx Rheumatoid Arthritis Sensory History: Reports: Hx Cataracts Denies: Hx Contacts or Glasses, Hx Hearing Aid Opthamlomology History: Reports: Hx Cataracts Denies: Hx Contacts or Glasses Neurological History: Reports: Hx Headaches - WITH ELEVATION IN BLOOD PRESSURE, Hx Migraine - WITH VALSALVAR MOVEMENT, Hx Seizures - BI-TEMPORAL INCOMPLETE FOCAL SEIZURES Psychiatric History: Reports: Hx Anxiety Denies: Hx Panic Disorder - Cancer History Cancer Type, Location and Year: BREAST CA Hx Chemotherapy: Yes - 1990 Hx Radiation Therapy: No - Surgical History Surgery Procedure, Year, and Place: CARDIAC CATHS (NO STENTS);. LEFT MASTECTOMY ;. LEFT LYMPH NODES REMOVED;. SPLENECTOMY;. RIGHT NEPHRECTOMY;. RIGHT KNEE SCOPING ([facility]);. BILATERAL URETER REPAIRS A CHILD;. BLADDER REPAIR ( [place]);. TONSILS AND APPENDECTOMY YOUNG CHILD;. HEMATOMA REMOVED FROM SPINE;. UTERINE FIBROIDS REMOVED WITH D&CX3;. LITHOTRIPSY; Hx Anesthesia Reactions: Yes - Immunization History Date of Tetanus Vaccine: utd Date of Influenza Vaccine: fall 2017 Infectious Disease History: No Infectious Disease History: Denies: Traveled Outside the [place] in Last 30 Days - Family History Known Family History: Positive: Respiratory Disease - COPD - Social History Alcohol Use: None Hx Substance Use: No Substance Use Type: Reports: None Hx Tobacco Use: Yes Smoking Status (MU): Heavy Every Day Tobacco Smoker Type: Cigarettes Amount Used/How Often: 1 ppd 50 yrs Length of Time of Smoking/Using Tobacco: 50 years Have You Smoked in the Last Year: Yes Review of Systems Positive: Fatigue. Negative: Fever Positive: Shortness Of Breath All Other Systems Reviewed And Are Negative: Yes Physical Exam - Summary Physical Exam Summary: Appearance: The patient is well-nourished in no acute distress and in no acute pain. Skin: The skin is warm and dry and skin color reflects adequate perfusion. HEENT: The head is normocephalic and atraumatic. The pupils are equal and reactive. The conjunctivae are clear and without drainage. Nares are patent and without drainage. Mouth reveals moist mucous membranes and the throat is without erythema and exudate. The external ears are intact. The ear canals are patent and without drainage. The tympanic membranes are intact. Neck: The neck is supple with full range of motion and non-tender. There are no carotid bruits. There is no neck vein distension. Respiratory: Chest is non-tender. Decreased breath sounds and increased E to I ratio. Increase EP diameter in chest Cardiovascular: Heart is regular rate and rhythm. There is no murmur or rub auscultated. There is no peripheral edema and pulses are symmetrical and equal. Abdomen: The abdomen is soft and non-tender. There are normal bowel sounds heard in all four quadrants and there is no organomegaly palpated. Musculoskeletal: There is no back tenderness noted. Extremities are non-tender with full range of motion. There is good capillary refill. There is no peripheral edema or calf tenderness elicited. Neurological: Patient is alert and oriented to person, place and time. The patient has symmetrical motor strength in all four extremities. Cranial nerves are grossly intact. Deep tendon reflexes are symmetrical and equal in all four extremities. Psychiatric: The patient has an appropriate affect and does not exhibit any anxiety or depression. Triage Information Reviewed: Yes Vital Signs On Initial Exam: Initial Vitals Temp Pulse Resp BP Pulse Ox 97.4 F 85 20 190/98 95 07/30/18 14:36 07/30/18 14:36 07/30/18 14:36 07/30/18 14:36 07/30/18 14:36 Vital Signs Reviewed: Yes Diagnostics - Vital Signs Vital Signs Temp Pulse Resp BP Pulse Ox 07/30/18 14:36 97.4 F 85 20 190/98 95 - Laboratory Result Diagrams: 07/31/18 07:46 07/31/18 07:46 Lab Statement: Any lab studies that have been ordered have been reviewed, and results considered in the medical decision making process. - Radiology CXR Radiology Interpretation Completed By: Radiologist Summary of Radiographic Findings: CXR reveals, per radiologist, IMPRESSION: 1. Chronic appearing findings include increased interstitial lung markings which could be seen in the setting of interstitial lung disease, pneumonitis or pulmonary vascular congestion. 2. New since the prior chest x-ray is bibasilar costophrenic angle blunting which could be due to small pleural effusions and/ or lower lobe densities. ED physician has reviewed this radiology report. - EKG 1449 Cardiac Rate: NL EKG Rhythm: Sinus Rhythm - 80 BPM Summary of EKG Findings: An EKG, taken 1449, reveals NSR (80 BPM), normal ST, no ectopy, no STEMI. Unchanged from 07/16/18. Course/Dx - Course Course Of Treatment: Ms. Walker started to feel short of breath after having a cigarette this morning. She has a history of COPD and was recently hospitalized for exacerbation. She does not use oxygen at home but uses nebulizers and inhalers and has been using them as per her norm. She denies any URI type symptoms. She was nontoxic in appearance with stable vitals on oxygen however she clearly needed the oxygen. She was given Solu-Medrol and DuoNebs here with some subjective improvement. Labs revealed her sodium to be quite low at 120 in the hospitalist service was contacted for admission. - Diagnoses Provider Diagnoses: Hyponatremia, COPD exacerbation - Physician Notifications Discussed Care of Patient With: Reny Castillo - Hospitalist Time Discussed With Above Provider: 17:15 - We discussed patient care with Dr. Castillo (Hospitalist) at 1715 and they agreed to admit the patient. Discharge - Sign-Out/Discharge Documenting (check all that apply): Patient Departure Patient Received Moderate/Deep Sedation with Procedure: No - Discharge Plan Condition: Stable Disposition: ADMITTED TO [facility] - Billing Disposition and Condition Condition: STABLE Disposition: Admitted to [facility] - Attestation Statements Document Initiated by Aaron: Yes Documenting Scribe: Ze Cho Provider For Whom Aaron is Documenting (Include Credential): Brandin Apple MD Scribe Attestation: IZe, scribed for Brandin Apple MD on 07/31/18 at 1045. Scribe Documentation Reviewed: Yes Provider Attestation: The documentation as recorded by the Ze conner accurately reflects the service I personally performed and the decisions made by me, Brandin Apple MD Status of Scribjana Document: Viewed
[2018-07-30 15:59] LABS: Hematocrit 39 % (35-47); Hemoglobin 13.4 g/dL (12.0-16.0); Mean Corpuscular HGB Conc 34 g/dL (31-36); Mean Corpuscular Hemoglobin 31 pg (27-31); Mean Corpuscular Volume 91 fL (80-97); Red Cell Distribution Width 16 % (10.5-15); White Blood Count 14.8 10^3/uL (3.5-10.8)
[2018-07-30 16:05] LABS: Albumin 3.9 g/dL (3.2-5.2); Albumin/Globulin Ratio 1.2 (1-3); C Reactive Protein 39.53 mg/L (<8.01); Calcium 9.3 mg/dL (8.6-10.3); Globulin 3.2 g/dL (2-4); Potassium 4.6 mmol/L (3.5-5.0); Total Bilirubin 0.4 mg/dL (0.2-1.0); Total Protein 7.1 g/dL (6.4-8.9)
[2018-07-30 16:06] LABS: Troponin I 0.01 ng/mL (<0.04)
[2018-07-30 16:30] LABS: ABS Basophils 0.1 10^3/ul (0-0.2); ABS Lymphocytes 1.9 10^3/ul (1.0-4.8); ABS Monocytes 0.9 10^3/ul (0-0.8); ABS Neutrophils 11.9 10^3/ul (1.5-7.7); Eosinophil % 0.2 %; Lymphocyte % 12.7 %; Nucleated Red Blood Cells % 0.1; Platelet Count Platelets clumped. 10^3/uL (150-450)
[2018-07-30 16:48] LABS: BUN/Creatinine Ratio 14.9 (8-20); EGFR African American 101.5 (>60); EGFR Non-African American 83.9 (>60)
[2018-07-30] MEDS ORDERED: cefTRIAXone(*) 1 GM in NS 0.9% 50 ML* 50 ML IVPB ONE (18:30)
[2018-07-30] MEDS ORDERED: Azithromycin 500 mg/250 ml NS 500 MG/250 ML BAG IVPB ONE (18:30)
[2018-07-30] MEDS ORDERED: NS 0.9% 1000 ML** 1,000 ML IV.FLUID IV ONE (18:45)
[2018-07-30] MEDS ORDERED: Albuterol HFA INHALER* 8 gm MDI INH PRN (18:55)
[2018-07-30] MEDS: Albuterol/Ipratropium NEB.SOL* Albuterol 2.5 MG/Ipratropium 0.5 MG 3 ML INH PRN (19:49)
[2018-07-30 19:50] LABS: Urine Appearance Cloudy; Urine Bacteria Absent (Absent); Urine Bilirubin Negative (Negative); Urine Blood Negative (Negative); Urine Color Yellow; Urine Glucose Negative (Negative); Urine Ketones Negative (Negative); Urine Nitrite Negative (Negative); Urine Protein 3+(>=500 mg/dL) (Negative); Urine Red Blood Cell Trace(0-2/hpf) (Absent); Urine Specific Gravity 1.015 (1.010-1.030); Urine Squamous Epithelial Cell Present (Absent); Urine Urobilinogen Negative (Negative); Urine White Blood Cell Trace(0-5/hpf) (Absent)
[2018-07-30] MEDS: Hydrocodone/Acetamin 10/325 1 TAB PO PRN (20:20)
[2018-07-30] MEDS: amLODIPine TAB* 5 MG PO SCH (20:21)
--- NOTE | 2018-07-30 21:45 | HP ---
CC: Dr. Burciaga * HISTORY AND PHYSICAL: DATE OF ADMISSION: 07/30/18 PROVIDER: Trish Diaz NP PRIMARY CARE PROVIDER: Dr. Burciaga. ATTENDING PHYSICIAN WHILE IN THE HOSPITAL: Reny Castillo MD * (dictated by Trish Diaz NP) CHIEF COMPLAINT: 1. Cough. 2. Shortness of breath. 3. Generalized weakness. HISTORY OF PRESENT ILLNESS: Ms. Walker is an 83-year-old female with a past medical history of COPD, CAD, history of non-STEMI, irritable bowel, breast cancer, anxiety, hemolytic anemia, arthritis, chronic pain, hypertension, hypothyroid, hyperlipidemia, aortic stenosis that is moderate, GERD, and a history of a DVT who presented to the emergency room with the complaints of shortness of breath. The patient reports that she over the past 5 weeks has become more short of breath and it has become worse over the past 3 days. She reports that she awoke this morning and her shortness of breath was at its worst. She reports that she felt weak and was unable to eat. She reports that she has had a decreased appetite for several days and has not been eating and drinking very much at home. She also reports she has a productive cough with green thick sputum. She denies any fever or chills. Denies chest pain. She does report some lower extremity edema. She does report a cough that is productive of green sputum. No hemoptysis. She does report worsening shortness of breath at rest and with exertion. She does report she had some nausea yesterday. No vomiting, diarrhea. She does report she has abdominal pain x2 years and she is followed as an out-patient with Dr. Sims and is scheduled to see Dr. Jensen. She denies any gross hematuria. She does report dysuria, pain with urination, and increased incontinence. She denies any focal weakness or sensory loss, visual complaints. Denies any dysphagia, arthralgias. She does report generalized body aches. No rashes, lesions, open sores. She does report she feels anxious. While in the emergency room, the patient had routine lab work drawn. She was found to have leukocytosis with white count of 14.8. She had tachypnea with respirations between 20 to 23. O2 saturation on 2 L nasal cannula is 95%. She also had a chest x-ray, there were concerns of bibasilar pneumonia, so the patient does meet sepsis criteria in the emergency room. Due to the findings of pneumonia, her shortness of breath, we were asked to see and evaluate her for admission. PAST MEDICAL HISTORY: Significant for: 1. COPD. 2. CAD. 3. Non-STEMI. 4. History of IBS. 5. History of left breast cancer, status post mastectomy. 6. Anxiety. 7. Hemolytic anemia. 8. Arthritis. 9. Chronic pain. 10. Hypertension. 11. Hyperlipidemia. 12. Hypothyroidism. 13. Moderate aortic stenosis. 14. GERD. 15. History of DVT. 16. Seizure. PAST SURGICAL HISTORY: 1. Heart catheterization in 2016. 2. Left mastectomy. 3. Splenectomy. 4. Hysterectomy. 5. Bladder surgeries. 6. Appendectomy. 7. Bilateral knee arthroscopies. 8. Carpal tunnel. 9. Right nephrectomy. 10. Ankle surgery. MEDICATIONS: Home medications include: 1. Hydrocodone 10/325 one tablet orally 3 times a day as needed for pain x1 week only. She reports she has 3 more days worth of this dose. 2. Vitamin B12 500 mcg 1 tablet p.o. every day. 3. Probiotic 10 billion cell capsule, 1 capsule orally twice daily. 4. Folic acid 1 mg p.o. daily. 5. Celebrex 200 mg 1 capsule daily. 6. Incruse Ellipta 62.5 mcg 1 inhalation daily. 7. Atorvastatin 80 mg 1 tablet orally daily. 8. Amlodipine 10 mg 1 tablet every day. 9. Mirtazapine 15 mg p.o. q.h.s., 7.5 mg p.o. q.a.m. 10. Levothyroxine 25 mcg 1 tablet p.o. daily. 11. Dextromethorphan/guaifenesin 10 mg/100, 5 to 10 mL every 4 hours as needed for cough. 12. Butalbital/acetaminophen/caffeine 50 mg/325/40 mg, take 1 to 2 capsules orally 3 times a week as needed for migraines. 13. Gabapentin 600 mg t.i.d. 14. Vitamin D2 50,000 units 1 capsule monthly. 15. Ipratropium/albuterol 0.5/3 mg, take 1 ampule for nebulization twice daily. 16. Fluticasone 50 mcg 1 spray nasally in bilateral nostrils daily. 17. Ventolin HFA 90 mcg 2 puffs every 4 to 6 hours as needed for shortness of breath. 18. Colace 100 mg 1 capsule every day as needed for constipation. 19. Genteal Tears 0.3% eye gel for dry eyes. 20. Mucinex Fast-Max congestion, cough 2.5/5/100/5 mL, 15 mL orally as needed. 21. Omeprazole 40 mg 1 tablet p.o. daily. 22. Dry eye relief 1%/0.2%/0.2% 2 drops q.3 hours as needed for dry eyes. 23. Imodium A-D 2 mg tablet, 1 tablet every 6 hours as needed for diarrhea. 24. Metoprolol tartrate 25 mg 1 tablet twice daily. 25. Cetirizine 10 mg 1 tablet daily. 26. Multivitamin 1 tablet p.o. daily. 27. Systane Balance 0.6 eye drops, 1 drop to both eyes 3 to 4 times a day. 28. Aspirin 81 mg p.o. daily. ALLERGIES: ACETAMINOPHEN, PAXIL, WELLBUTRIN, CARBAMAZEPINE, ZYRTEC, CLINDAMYCIN , DEPAKOTE, FLUTICASONE, ADVAIR DISKUS, IODINE, LATEX, LEVOTHYROXINE, LIDOCAINE , ZYPREXA, DILANTIN, PREDNISONE, SULFA, TETRACYCLINES, TRIAMCINOLONE, AZMACORT, LATEX, IV DYE. FAMILY HISTORY: Mother at the age of 62, cardiac arrest. Father with a history of heart failure and Parkinson's. Previous history reports her mother had a history of dementia as well. Mother and siblings with diabetes. Cancer, grandparents with unknown type of cancer. SOCIAL HISTORY: The patient continues to smoke. She smokes 26 cigarettes a day that she rolls her own cigarettes. She has smoked for 50+ years. She denies any alcohol or illicit drug use. Surrogate decision maker in the event she is unable to make her own decision is her daughter, Nanci. She is a full code. REVIEW OF SYSTEMS: A 14-point review of systems was completed. All pertinent positives are mentioned in the HPI, otherwise are negative. PHYSICAL EXAMINATION GENERAL: At this time, Ms. Walker is an 83-year-old female. She is sitting on the stretcher in the emergency room. She does not appear to be in any acute distress. She is alert and oriented x3. VITAL SIGNS: Blood pressure 166/67, heart rate 75, respirations are 21, O2 saturation is 96% on 2 L nasal cannula, temp was 97.4. HEENT: Head is atraumatic, normocephalic. Eyes: EOMs are intact. Sclerae anicteric and not pale. Oral mucosa appeared to be dry. NECK: Supple. LUNGS: She does have scattered coarse rhonchi with expiratory wheezes. CARDIAC: S1, S2. Regular rate and rhythm. She does have a murmur. No rubs or gallops. ABDOMEN: Soft and nontender. Bowel sounds are present. EXTREMITIES: Pedal pulses are +2 bilaterally. She does have a slight amount of lower extremity edema, +1 pitting. She is able to move all 4 extremities with 5/5 strength. NEUROLOGIC: She is awake, alert, oriented x3. Speech is clear. Thought process is intact. There are no gross focal deficits. SKIN: Intact. LABORATORY DATA AND DIAGNOSTIC STUDIES: WBCs are 14.8, RBCs 4.30, hemoglobin 13.4, hematocrit was 39, platelet count was clumped. Sodium was 120, potassium 4.6, chloride 89, carbon dioxide was 25, anion gap was 6, BUN was 10, creatinine 0.67, glucose was 141. Lactic acid was 0.8. Calcium 9.3. ASTs were 26, ALTs were 20, alkaline phosphatase was 210. Troponin was 0.01. C- reactive protein was 39.53. She had a chest x-ray, radiologist's impression: Chronic appearing findings including increased interstitial lung markings which could be seen in the setting of interstitial lung disease, pneumonitis or pulmonary vascular congestion, new since prior x-ray is bibasilar costophrenic angle blunting, which could be also due to small pleural effusions and/or lower lobe densities. She had an electrocardiogram, which showed sinus rhythm at a rate of 80. UA is currently pending. Blood cultures are currently pending. BNP is 649. ASSESSMENT AND PLAN: Ms. Walker is an 83-year-old female who presented to the emergency room today with complaints of progressively worsening shortness of breath, cough productive of green sputum. She has been evaluated by the ED and we were asked to evaluate her for admission. She will be admitted under observation for: 1. Sepsis. The patient does meet sepsis criteria by leukocytosis with elevated white count of 14.8 and tachypnea with a suspected source of pneumonia. I will start ceftriaxone and azithromycin for treatment of her pneumonia. She did not receive IV fluid resuscitation in the ER. I am going to hold off fluid bolusing as the patient does have hyponatremia and overcorrecting her hyponatremia quickly will place the patient at risk of developing altered mentation and risk of seizures. I will give her slow IV hydration with normal saline overnight and watch her fluid levels. The patient also does have a history of aortic stenosis and diastolic dysfunction, which could increase her risk of congestive heart failure. 2. Shortness of breath. I suspect this is related to pneumonia with chronic obstructive pulmonary disease exacerbation. The patient does have an elevated white count, productive cough with green sputum, and progressively worsening shortness of breath over the past 3 days. No hemoptysis. Again, I will place her on ceftriaxone and azithromycin. I will continue on normal saline at 50 cc per hour. She has had blood cultures drawn. They are pending. I will send a sputum culture. I have also sent urine for legionella and Strep pneumoniae. She can have nebulizer treatments and inhaled steroids as prescribed. She can continue her home inhalers. Patient report she is allergic to prednisone, to steroids were given. 3. Hyponatremia. The patient is hyponatremic with a sodium level of 120. I will get a serum sodium level and urine for sodium and osmolality. I suspect this is probably related to dehydration and malnutrition as the patient reports that she has had decreased appetite x5 days. 4. History of coronary artery disease. I will continue on metoprolol and aspirin as previously prescribed. 5. History of irritable bowel. Continue on her medications as previously prescribed. 6. History of breast cancer. She is followed by her primary care provider and Dr. Sims. 7. Anxiety. supportive care. 8. Chronic pain. We will continue hydrocodone 10/325 t.i.d. as needed for pain. 9. Hypothyroidism. We will continue levothyroxine 25 mcg p.o. daily. 10. Hyperlipidemia. She will continue on atorvastatin 80 mg p.o. daily. 11. Aortic stenosis. The patient had a recent transthoracic echocardiogram on 06/07/18. At that time, left ventricular cavity size was normal, normal global wall motion, visual EF was 55% to 60%, Doppler evidence of grade 3 diastolic dysfunction, left atrial cavity was mildly dilated, the right atrial cavity was slightly dilated, ek[place] trileaflet aortic valve with mild regurgitation, moderate aortic valve trileaflet thickening with severe calcification, moderate aortic valve stenosis, ekuk mitral valve with mild to moderate regurg, ekuk tricuspid valve with mild to moderate GERD, mild to moderate pulmonary hypertension, ek[place] pulmonic valve with trace regurgitation, aortic root was normal, mildly dilated aortic arch, and aortic stenosis is stable at moderate. 12. Gastroesophageal reflux disease. We will continue on omeprazole as previously prescribed. 13. History of deep vein thrombosis. She is not on anticoagulation. We will continue on DVT prophylaxis. 14. DVT prophylaxis: I will place her on heparin 5000 units subcu q.12 hours. 15. Code status: She is a full code. 16. Fluids, electrolytes, and nutrition: She can have a heart-healthy diet. TIME SPENT: Time spent on this admission was approximately 60 minutes, greater than half the time was spent [id number] with the patient obtaining my history and physical, the other half of the time was spent implementing my plan of care. I have discussed this with my attending, Dr. Reny Castillo; she is in agreement with my plan. TRISH DIAZ, AFSANEH [id number]/[facility] #: [id number] SINDI
[2018-07-31] MEDS: Metoprolol Tartrate TAB* 25 MG PO SCH ×3 (01:06→23:48)
[2018-07-31] MEDS: Mirtazapine TAB* 15 MG PO SCH ×3 (01:08→23:52)
[2018-07-31] MEDS: Docusate CAP* 100 MG PO SCH ×3 (01:09→23:52)
[2018-07-31] MEDS: Gabapentin CAP(*) 300 MG PO SCH ×4 (01:10→23:45)
[2018-07-31] MEDS: Atorvastatin* 80 MG TAB PO SCH ×2 (01:13→23:53)
[2018-07-31] MEDS: Heparin VIAL(*) 5000 UNITS/ML VIAL (FIVE THOUSAND) SUBCUT SCH ×3 (01:14→23:56)
[2018-07-31] MEDS: NS 0.9% 1000 ML** 1,000 ML IV SCH (07:00)
[2018-07-31] MEDS: Hydrocodone/Acetamin 10/325 1 TAB PO PRN (07:53)
[2018-07-31] MEDS: Umeclidinium 62.5 MDI(NF) MDI INH SCH (07:58)
[2018-07-31 08:11] LABS: ABS Basophils 0.1 10^3/ul (0-0.2); ABS Monocytes 0.6 10^3/ul (0-0.8); ABS Neutrophils 11.7 10^3/ul (1.5-7.7); Hematocrit 37 % (35-47); Hemoglobin 12.5 g/dL (12.0-16.0); Lymphocyte % 7.8 %; Mean Corpuscular HGB Conc 34 g/dL (31-36); Mean Corpuscular Hemoglobin 31 pg (27-31); Mean Corpuscular Volume 91 fL (80-97); Mean Platelet Volume 7.6 fL (7.4-10.4); Platelet Count 337 10^3/uL (150-450); Red Blood Count 4.04 10^6 /uL (3.70-4.87); Red Cell Distribution Width 16 % (10.5-15); White Blood Count 13.5 10^3/uL (3.5-10.8)
[2018-07-31 08:18] LABS: EGFR African American 122.3 (>60); Potassium 4.8 mmol/L (3.5-5.0)
[2018-07-31] MEDS: Folic Acid TAB* 1 MG PO SCH (09:06)
[2018-07-31] MEDS: Multivitamins/Minerals TAB PO SCH (09:06)
[2018-07-31] MEDS: Aspirin EC TAB* 81 MG TAB.EC PO SCH (09:06)
[2018-07-31] MEDS: Levothyroxine TAB* 25 MCG TAB PO SCH (09:06)
[2018-07-31] MEDS: amLODIPine TAB* 5 MG PO SCH (09:07)
[2018-07-31] MEDS: Cyanocobalamin TAB* 500 MCG PO SCH (09:07)
[2018-07-31] MEDS: Pantoprazole TAB * 40 MG TAB PO SCH (09:08)
[2018-07-31] MEDS: Fluticasone NASAL SPRAY 50MCG* 16 gm SPRAY BTL BOTH NARES SCH (09:17)
[2018-07-31] MEDS: celeCOXIB CAP* 200 MG PO SCH (09:17)
[2018-07-31] MEDS ORDERED: PROCHLORPERAZINE INJ 5 MG/ML 2 ML VIAL IV PRN (09:34)
[2018-07-31] MEDS ORDERED: Morphine 4 MG/ML VIAL (1 ml) 4 MG/ML VIAL IV ONE (10:04)
[2018-07-31] MEDS: guaiFENesin ER TAB 600 MG PO SCH ×2 (10:28→23:47)
--- NOTE | 2018-07-31 11:52 | PN ---
Subjective Date of Service: 07/31/18 Interval History: HOSPITALIST PROGRESS NOTE Patient seen and examined at bedside. Care reviewed and d/w Martha Quiñonez RN. She c/o significant dyspnea. Very anxious and feels weaker. Family History: Unchanged from Admission Social History: Unchanged from Admission Past Medical History: Unchanged from Admission Objective Active Medications: Hydrocodone Bitart/Acetaminophen ([place] 10/325 (Nf)) 1 tab PO Q6H PRN PRN Reason: PAIN Albuterol (Ventolin Hfa Inhaler*) 2 puff INH Q4H PRN PRN Reason: SOB/WHEEZING Albuterol/Ipratropium (Duoneb (Albuterol 2.5 Mg/Ipratropium 0.5 Mg)) 1 neb INH [id number] AWAKE PRN PRN Reason: sob/wheexing Last Admin: 07/30/18 19:49 Dose: 1 neb Amlodipine Besylate (Norvasc Tab*) 10 mg PO DAILY [facility] Last Admin: 07/31/18 09:07 Dose: 10 mg Aspirin (Aspirin Ec Tab*) 81 mg PO DAILY [facility] Last Admin: 07/31/18 09:06 Dose: Not Given Atorvastatin Calcium (Lipitor*) 80 mg PO BEDTIME [facility] Last Admin: 07/31/18 01:13 Dose: 80 mg Celecoxib (Celebrex Cap*) 200 mg PO QAM [facility] Last Admin: 07/31/18 09:17 Dose: 200 mg Cyanocobalamin (Vitamin B12 Tab*) 500 mcg PO DAILY [facility] Last Admin: 07/31/18 09:07 Dose: Not Given Docusate Sodium (Colace Cap*) 100 mg PO BID [facility] Last Admin: 07/31/18 09:06 Dose: Not Given Fluticasone Propionate (Flonase Nasal [place] 50mcg*) 2 spray BOTH NARES DAILY [facility] Last Admin: 07/31/18 09:17 Dose: 2 spray Folic Acid (Folvite Tab*) 1 mg PO DAILY [facility] Last Admin: 07/31/18 09:06 Dose: Not Given Gabapentin (Neurontin Cap(*)) 600 mg PO TID [facility] Last Admin: 07/31/18 09:06 Dose: 600 mg Guaifenesin (Mucinex*) 600 mg PO BID [facility] Last Admin: 07/31/18 10:28 Dose: 600 mg Heparin Sodium (Porcine) (Heparin Vial(*)) 5,000 units SUBCUT Q12HR [facility] Last Admin: 07/31/18 09:08 Dose: 5,000 units Azithromycin (Zithromax 500 Mg/250 Ml) 500 mg in 250 mls @ 250 mls/hr IVPB Q24H [facility] Ceftriaxone Sodium 1 gm/ (Sodium Chloride) 50 mls @ 200 mls/hr IVPB Q24H [facility] Sodium Chloride (Ns 0.9% 1000 Ml) 1,000 mls @ 50 mls/hr IV .PER RATE [facility] Last Admin: 07/31/18 07:00 Dose: 50 mls/hr Levothyroxine Sodium (Synthroid Tab*) 25 mcg PO QAM [facility] Last Admin: 07/31/18 09:06 Dose: Not Given Metoprolol Tartrate (Lopressor Tab*) 25 mg PO BID [facility] Last Admin: 07/31/18 09:06 Dose: 25 mg Mirtazapine (Remeron Tab*) 7.5 mg PO QAM [facility] Last Admin: 07/31/18 09:07 Dose: 7.5 mg Mirtazapine (Remeron Tab*) 15 mg PO BEDTIME [facility] Last Admin: 07/31/18 01:08 Dose: 15 mg Multivitamins/Minerals (Theragran/Minerals Tab*) 1 tab PO DAILY [facility] Last Admin: 07/31/18 09:06 Dose: Not Given Pantoprazole Sodium (Protonix Tab*) 40 mg PO DAILY [facility] Last Admin: 07/31/18 09:08 Dose: 40 mg Prochlorperazine Edisylate (Compazine Inj*) 5 mg IV Q6H PRN PRN Reason: NAUSEA/VOMITING Umeclidinium [place] (Incruse Ellipta Mdi (Nf)) 1 inh INH DAILY [facility] Last Admin: 07/31/18 07:58 Dose: Not Given Vital Signs - 8 hr 07/31/18 07/31/18 07/31/18 03:48 07:38 07:45 Temperature 98 F 97.4 F Pulse Rate 82 90 Respiratory 20 21 Rate Blood Pressure 151/58 144/106 124/78 (mmHg) O2 Sat by Pulse 92 95 Oximetry 07/31/18 07/31/18 07/31/18 07:53 09:06 09:37 Temperature Pulse Rate Respiratory 24 24 24 Rate Blood Pressure (mmHg) O2 Sat by Pulse Oximetry 07/31/18 07/31/18 10:29 11:00 Temperature 97.4 F Pulse Rate 80 Respiratory 24 19 Rate Blood Pressure 149/54 (mmHg) O2 Sat by Pulse 94 Oximetry Oxygen Devices in Use Now: Nasal Cannula Appearance: Elderly lady sitting up in bed in mild respiratory distress, very anxious. Eyes: No Scleral Icterus Ears/Nose/Mouth/Throat: Mucous Membranes Moist Neck: Trachea Midline Respiratory: Symmetrical Chest Expansion and Respiratory Effort, - - NS+ bilaterally diminished with scattered wheeze Cardiovascular: RRR - Normal S1 and S2 Neurological: Alert and Oriented x 3, NL Muscle Strength and Tone Result Diagrams: 07/31/18 07:46 07/31/18 07:46 Microbiology and Other Data: Microbiology 07/30/18 18:47 Legionella Urinary Antigen - Final Urine Negative Legionella Antigen Streptococcus pneumoniae Ag Screen - Final Negative S. pneumo Antigen Assess/Plan/Problems-Billing Assessment: Mrs Walker is an 83yo F with PMH of COPD, CAD, IBS, breast CA, anxiety, hemolytic anemia, chronic pain, HTN, HLD, , GERD, DVT; who presented to ED with c/o dyspnea, found to have COPD exacerbation secondary to pneumonia. - Patient Problems (1) Sepsis Comment: - Met sepsis criteria on admission with leukocytosis and tachypnea. - Source is pneumonia. (2) Acute hypoxemic respiratory failure Comment: - Requiring 4 liters of O2 - continue to monitor. (3) COPD exacerbation Comment: - Continue bronchodilators. - Patient states she had chest pain and swelling with steroids in the past. - Will add low dose Morphine for air hunger and monitor. (4) Pneumonia Comment: - Continue Ceftriaxone and Zithromax. (5) Anxiety Comment: - As per PCP, patient has confusion with benzos - continue to monitor. - Morphine may help with her air hunger, and help decrease her anxiety. (6) Tobacco abuse Comment: - She continues to smoke >20 cigarrettes a day. (7) DVT prophylaxis Comment: - SQ heparin. (8) Full code status
[2018-07-31] MEDS: Nicotine PATCH 21 MG/24 HR* PATCH TRANSDERM SCH (14:19)
[2018-07-31 14:58] LABS: Influenza A Molecular NEGATIVE (Negative); Influenza B Molecular NEGATIVE (Negative)
[2018-07-31] MEDS: Morphine INJ* 2 MG/ML 1 ML SYRINGE (TWO MG - NEW SYRINGE VERSION) IV PRN (20:05)
[2018-07-31] MEDS: Azithromycin 500 mg/250 ml NS 500 MG/250 ML BAG IVPB SCH (20:07)
[2018-07-31] MEDS: cefTRIAXone(*) 1 GM in NS 0.9% 50 ML* 50 ML IVPB SCH (21:47)
[2018-08-01] MEDS: Nicotine Patch Removal NOTE FOLLOW UP SCH ×2 (00:02→22:22)
[2018-08-01] MEDS: Albuterol/Ipratropium NEB.SOL* Albuterol 2.5 MG/Ipratropium 0.5 MG 3 ML INH PRN ×2 (02:38→08:16)
[2018-08-01] MEDS: Morphine INJ* 2 MG/ML 1 ML SYRINGE (TWO MG - NEW SYRINGE VERSION) IV PRN ×2 (04:25→08:28)
[2018-08-01] MEDS: NS 0.9% 1000 ML** 1,000 ML IV SCH ×2 (07:00→14:43)
[2018-08-01] MEDS: Umeclidinium 62.5 MDI(NF) MDI INH SCH (07:44)
[2018-08-01] MEDS: Mirtazapine TAB* 15 MG PO SCH ×2 (08:31→22:23)
[2018-08-01] MEDS: Gabapentin CAP(*) 300 MG PO SCH ×3 (08:31→22:26)
[2018-08-01] MEDS: guaiFENesin ER TAB 600 MG PO SCH ×2 (08:31→22:26)
[2018-08-01] MEDS: celeCOXIB CAP* 200 MG PO SCH (08:32)
[2018-08-01] MEDS: Metoprolol Tartrate TAB* 25 MG PO SCH ×2 (08:37→22:23)
[2018-08-01] MEDS: amLODIPine TAB* 5 MG PO SCH (08:37)
[2018-08-01] MEDS: Nicotine PATCH 21 MG/24 HR* PATCH TRANSDERM SCH (08:38)
[2018-08-01] MEDS: Heparin VIAL(*) 5000 UNITS/ML VIAL (FIVE THOUSAND) SUBCUT SCH ×2 (08:39→22:25)
[2018-08-01] MEDS: Levothyroxine TAB* 25 MCG TAB PO SCH (08:40)
[2018-08-01] MEDS: Pantoprazole TAB * 40 MG TAB PO SCH (08:40)
[2018-08-01] MEDS: Aspirin EC TAB* 81 MG TAB.EC PO SCH (08:40)
[2018-08-01] MEDS: Cyanocobalamin TAB* 500 MCG PO SCH (09:03)
[2018-08-01] MEDS: Folic Acid TAB* 1 MG PO SCH (09:03)
[2018-08-01] MEDS: Docusate CAP* 100 MG PO SCH ×2 (09:03→22:20)
[2018-08-01] MEDS: Multivitamins/Minerals TAB PO SCH (09:03)
[2018-08-01] MEDS ORDERED: Morphine INJ* 2 MG/ML 1 ML SYRINGE (TWO MG - NEW SYRINGE VERSION) IV PRN ×2 (09:11→10:23)
[2018-08-01] MEDS ORDERED: Nicotine* 2MG (FRUIT FLAVOR) GUM PO PRN (10:23)
[2018-08-01] MEDS ORDERED: Nicotine Lozenge mini 4 MG LOZNG.MINI MT PRN (10:23)
[2018-08-01] MEDS: Fluticasone NASAL SPRAY 50MCG* 16 gm SPRAY BTL BOTH NARES SCH (12:56)
[2018-08-01] MEDS ORDERED: methylPREDNISolone 125 MG* 2 ML VIAL IV ONE (15:02)
[2018-08-01] MEDS ORDERED: Furosemide IV* 10 MG/ML VIAL (40 MG) IV ONE (15:05)
--- NOTE | 2018-08-01 15:19 | CONSULT ---
Consult Consult: Consultation Note -- Critical Care Requesting Physician: Dr Sy Reason for consult: COPD exaccerbation, respiratory distress Limitations in history/physical: respiratory distress, delirium Date of consult: 08/01/2018 HPI: 83y F w/pmhx of COPD, active smoker, moderate 2019 with mild-mod MR/ TRCAD, HTN, HLD, HTN, GERD, IBS, chronic pain, h/o breast Ca s/p mastectomy on left , hypothyroidism; recent hospitalization for COPD exaccerbation; she presented to [facility] 08/01 for respiratory distress, suspected COPD exaccerbation with soem increased interstitial markings, given steroids and nebulizers, also noted to have hyponatremia. Started on empiric CAP therapy also. She remained with mild tachypnea but today developed increasing tachypnea, had change in mental status, more lethargic. ABG performed demonstrating acute respiratory acidosis. She demonstrated diffuse wheezing. She was upgraded to ICU. She is at home, taken care by daughter who is caregiver. has been SOB for sometime and slowly worsening. was on prednisone recently but take off due to confusion/blurry visioin and swelling in LE. Currently in bed in ICU. NIV on 02/22 60%. Sats 98% , RR 16, HR 80-90, BP 130- 140s. She is awake, follows commands, oriented x3 now. still sleepy at times. less resp distress noted now. Noted to have diffuse bilateral exp wheezing+, no rhales. no acc muscle use. Daughter at bedside, giving history also. States DNR; trial of intubation okay. ROS: ROS limited due to respiratory distress on NIV PMHx: COPD, active smoker, moderate 2018 with mild-mod MR/TR, CAD, HTN, HLD, HTN, GERD, IBS, chronic pain, h/o breast Ca s/p mastectomy on left , hypothyroidism PSHx: Left mastectomy, splenectomy, hysterectomy, bladder surgeries, appendectomy, carpal tunnel surgery, right nephrectomy, ankle surgery Family History: mother 62 cardiac arrest. Father with h/o CHF and parkinsons disease. Mother with dementia. DM in mother and siblings. Cancer in grandparents. Social History: Alcohol-no, [id number] x50yr, Drug use-no; lives at home, daughter is also care-taker Allergies: Allergies Allergy/AdvReac Type Severity Reaction Status Date / Time acetaminophen [From Tylenol] Allergy Unknown Verified 07/30/18 18:22 Reaction Details bupropion [From Wellbutrin] Allergy Unknown Verified 07/30/18 18:22 Reaction Details carbamazepine Allergy Unknown Verified 07/16/18 23:11 Reaction Details cetirizine [From Zyrtec] Allergy Unknown Verified 07/16/18 23:11 Reaction Details clindamycin Allergy Unknown Verified 07/30/18 18:22 Reaction Details divalproex sodium Allergy Unknown Verified 07/16/18 23:11 [From Depakote] Reaction Details fluticasone Allergy Unknown Verified 07/30/18 18:22 [From Advair Diskus] Reaction Details iodine Allergy Unknown Verified 07/16/18 23:11 Reaction Details latex Allergy Unknown Verified 07/16/18 23:11 Reaction Details levofloxacin [From Levaquin] Allergy Unknown Verified 07/30/18 18:22 Reaction Details lidocaine Allergy Unknown Verified 07/30/18 18:22 Reaction Details olanzapine [From Zyprexa] Allergy Unknown Verified 07/16/18 23:11 Reaction Details paroxetine [From Paxil] Allergy Agitation Verified 07/30/18 18:22 phenytoin [From Dilantin] Allergy Unknown Verified 07/16/18 23:11 Reaction Details salmeterol Allergy Unknown Verified 07/30/18 18:22 [From Advair Diskus] Reaction Details Sulfa (Sulfonamide Allergy Unknown Verified 07/16/18 23:11 Antibiotics) Reaction Details Tetracyclines Allergy Unknown Verified 07/16/18 23:11 Reaction Details triamcinolone [From Azmacort] Allergy Unknown Verified 07/30/18 18:22 Reaction Details Home Medications: Folic Acid TAB* [Folvite TAB*] 1 mg PO DAILY 07/08/14 [History Confirmed ] Cyanocobalamin TAB* [Vitamin B12 TAB*] 500 mcg PO DAILY 07/30/14 [History Confirmed 07/30/18] Gabapentin CAP(*) [Neurontin 300 CAP(*)] 600 mg PO TID 07/30/14 [History Confirmed 07/30/18] Multivitamins/Minerals TAB* [Theragran/minerals TAB*] 1 tab PO DAILY 07/30/14 [ History Confirmed 07/30/18] L. Acidophilus/Bifid. Animalis [Probiotic 5 Billion Cell Cap] 1 cap PO DAILY [History Confirmed 07/30/18] Aspirin EC TAB* [Ecotrin EC Low Dose 81 MG*] 81 mg PO DAILY tab.ec 02/13/16 [ Rx Confirmed 07/30/18] Levothyroxine TAB* [Synthroid 25 MCG TAB*] 25 mcg PO QAM 02/16/16 [History Confirmed 07/30/18] Propylene Glycol [Systane Balance] 0.6 % BOTH EYES .TID-QID PRN 02/16/16 [ History Confirmed 07/30/18] Fluticasone NASAL SPRAY 50MCG* [Flonase NASAL SPRAY 50MCG*] 1 - 2 spray BOTH NARES DAILY 04/12/16 [History Confirmed 07/30/18] Metoprolol Tartrate TAB* [Lopressor TAB*] 25 mg PO BID tab 04/21/16 [Rx Confirmed 07/30/18] amLODIPine TAB* [Norvasc 5 mg TAB*] 10 mg PO DAILY tab 04/21/16 [Rx Confirmed 07/30/18] Atorvastatin* [Lipitor 80 MG*] 80 mg PO BEDTIME 04/18/17 [History Confirmed 03/08] Butalb/Acetamin/Caff TAB* [Fioricet TAB*] 1 tab PO DAILY PRN MDD Up to 3 times a week 04/18/17 [History Confirmed 07/30/18] Ergocalciferol CAP* [Drisdol CAP*] 50,000 unit PO MONTHLY 04/18/17 [History Confirmed 07/30/18] Loperamide CAP* [Imodium CAP*] 2 mg PO QID PRN 04/18/17 [History Confirmed 07/30] Mirtazapine TAB* [Remeron TAB*] 15 mg PO BEDTIME 04/18/17 [History Confirmed 03/08] Umeclidinium 62.5 MDI(NF) [Incruse ELLIPTA MDI (NF)] 1 inh INH DAILY 04/18/17 [ History Confirmed 07/30/18] celeCOXIB CAP* [Celebrex CAP*] 200 mg PO QAM 04/18/17 [History Confirmed ] Albuterol HFA INHALER* [Ventolin HFA Inhaler*] 2 puff INH Q4H PRN 07/30/18 [ History Confirmed 07/30/18] Dextromethorphan-Guaifenesin [Dextromethorphan/Guaifene 10-100 mg/5Ml] 5 - 10 ml PO Q4H PRN 07/30/18 [History Confirmed 07/30/18] Docusate CAP* [Colace Cap*] 100 mg PO BEDTIME PRN 07/30/18 [History Confirmed ] Guaifen/Dextromethorphan/PE [Mucinex Fast-Max Severe C 5-10-200 mg] 1 tab PO DAILY PRN 07/30/18 [History Confirmed 07/30/18] Hydrocodone/Acetaminophen [Hydrocodone/Acetaminophen 10-325 mg] 1 tab PO TID PRN MDD for 1 week only 07/30/18 [History Confirmed 07/30/18] Hypromellose [Genteal Tears Severe] 1 gm OPHTHALMIC DAILY PRN 07/30/18 [History Confirmed 07/30/18] Ipratropium/Albuterol Sulfate [Iprat-Albut 0.5-3(2.5) mg/3 ml] 1 neb INH BID 03/08 [History Confirmed 07/30/18] Mirtazapine TAB* [Remeron TAB*] 7.5 mg PO QAM 07/30/18 [History Confirmed ] Omeprazole 40 mg PO DAILY 07/30/18 [History Confirmed 07/30/18] Tele: NSR Vitals: Vital Signs Temp 95.4 F 08/01/18 15:00 Pulse 66 08/01/18 15:00 Resp 15 08/01/18 15:05 BP 120/50 08/01/18 15:00 Pulse Ox 100 08/01/18 15:00 Intake & Output 07/31/18 08/01/18 08/01/18 18:59 06:59 18:59 Intake Total 420 0 990 Output Total 100 Balance 420 -100 990 Intake: IV Fluids 990 Oral 420 0 0 Output: Urine 100 Other: Estimated Void Medium Medium # Bowel Movements 1 Estimated Stool Amount Large # Voids 4 0 O2/Vent: NIV 12/5 60% Infusions: NS 50cc/hr Current Medications: Hydrocodone Bitart/Acetaminophen ([place] 10/325 (Nf)) 1 tab PO Q6H PRN PRN Reason: PAIN Albuterol (Ventolin Hfa Inhaler*) 2 puff INH Q4H PRN PRN Reason: SOB/WHEEZING Albuterol/Ipratropium (Duoneb (Albuterol 2.5 Mg/Ipratropium 0.5 Mg)) 1 neb INH Q2H [facility] Amlodipine Besylate (Norvasc Tab*) 10 mg PO DAILY [facility] Last Admin: 08/01/18 08:37 Dose: 10 mg Aspirin (Aspirin Ec Tab*) 81 mg PO DAILY [facility] Last Admin: 08/01/18 08:40 Dose: 81 mg Atorvastatin Calcium (Lipitor*) 80 mg PO BEDTIME [facility] Last Admin: 07/31/18 23:53 Dose: 80 mg Celecoxib (Celebrex Cap*) 200 mg PO QAM [facility] Last Admin: 08/01/18 08:32 Dose: 200 mg Cyanocobalamin (Vitamin B12 Tab*) 500 mcg PO DAILY [facility] Last Admin: 08/01/18 09:03 Dose: Not Given Docusate Sodium (Colace Cap*) 100 mg PO BID [facility] Last Admin: 08/01/18 09:03 Dose: Not Given Fluticasone Propionate (Flonase Nasal [place] 50mcg*) 2 spray BOTH NARES DAILY [facility] Last Admin: 08/01/18 12:56 Dose: Not Given Folic Acid (Folvite Tab*) 1 mg PO DAILY [facility] Last Admin: 08/01/18 09:03 Dose: Not Given Gabapentin (Neurontin Cap(*)) 600 mg PO TID [facility] Last Admin: 08/01/18 13:05 Dose: Not Given Guaifenesin (Mucinex*) 600 mg PO BID [facility] Last Admin: 08/01/18 08:31 Dose: 600 mg Heparin Sodium (Porcine) (Heparin Vial(*)) 5,000 units SUBCUT Q12HR [facility] Last Admin: 08/01/18 08:39 Dose: 5,000 units Azithromycin (Zithromax 500 Mg/250 Ml) 500 mg in 250 mls @ 250 mls/hr IVPB Q24H [facility] Last Admin: 07/31/18 20:07 Dose: 250 mls/hr Ceftriaxone Sodium 1 gm/ (Sodium Chloride) 50 mls @ 200 mls/hr IVPB Q24H [facility] Last Admin: 07/31/18 21:47 Dose: 200 mls/hr Sodium Chloride (Ns 0.9% 1000 Ml) 1,000 mls @ 50 mls/hr IV .PER RATE [facility] Last Admin: 08/01/18 14:43 Dose: 50 mls/hr Levothyroxine Sodium (Synthroid Tab*) 25 mcg PO QAM [facility] Last Admin: 08/01/18 08:40 Dose: 25 mcg Methylprednisolone Sodium Succinate (Solu-Medrol 40 Mg) 40 mg IV Q12H [facility] Metoprolol Tartrate (Lopressor Tab*) 25 mg PO BID [facility] Last Admin: 08/01/18 08:37 Dose: 25 mg Mirtazapine (Remeron Tab*) 7.5 mg PO QAM [facility] Last Admin: 08/01/18 08:31 Dose: 7.5 mg Mirtazapine (Remeron Tab*) 15 mg PO BEDTIME [facility] Last Admin: 07/31/18 23:52 Dose: 15 mg Morphine Sulfate (Morphine Inj (Syringe))*) 1 mg IV ONCE PRN PRN Reason: PAIN Morphine Sulfate (Morphine Inj (Syringe))*) 1 mg IV Q4H PRN PRN Reason: Severe Pain/RR>25 Multivitamins/Minerals (Theragran/Minerals Tab*) 1 tab PO DAILY [facility] Last Admin: 08/01/18 09:03 Dose: Not Given Nicotine (Nicotine Patch 21 Mg/24 Hr*) 1 patch TRANSDERM DAILY@0800 [facility] Last Admin: 08/01/18 08:38 Dose: 1 patch Nicotine Polacrilex (Nicotine Gum*) 2 mg PO Q2H PRN PRN Reason: CRAVING Nicotine Polacrilex (Nicotine Lozenge Mini) 4 mg MT Q2H PRN PRN Reason: CRAVINGS Pantoprazole Sodium (Protonix Tab*) 40 mg PO DAILY [facility] Last Admin: 08/01/18 08:40 Dose: 40 mg Pharmacy Profile Note (Nicotine Patch Removal Note*) 1 note FOLLOW UP 2100 [facility] Last Admin: 08/01/18 00:02 Dose: 1 note Prochlorperazine Edisylate (Compazine Inj*) 5 mg IV Q6H PRN PRN Reason: NAUSEA/VOMITING Umeclidinium [place] (Incruse Ellipta Mdi (Nf)) 1 inh INH DAILY [facility] Last Admin: 08/01/18 07:44 Dose: Not Given Physical Exam: Constitutional: awake easily, alert, less resp distress, no diaphoresis Head: normocephalic, atraumatic Eyes: no pallor, no icterus ENT: moist mucous membranes Neck: soft, supple, no jvd, no stridor CVS: normal rate, regular, no murmur Resp: bilateral air entry, bilateral expiratory wheezing++, no rhales, no rhonchi, no acc muscle use Abdomen/GI: soft, nontender, nondistended, BS+ Ext/Msk: warm, pulses+, no edema Skin: intact, warm Neuro: awake easily, semi-alert, orientedx3, moving all extremities Labs: Laboratory Results - last 24 hr 08/01/18 13:20 Patient Temperature Not Reportable ABG pH 7.13 L* ABG pH (Temp Correct) Not Reportable ABG pCO2 90 H* ABG pCO2 (Temp Corrct Not Reportable ABG pO2 82 ABG pO2 (Temp Correct Not Reportable ABG HCO3 23.5 ABG O2 Saturation 97.2 ABG Base Excess -1.8 Respiration Rate Not Reportable O2 Delivery Device nasal cannula 5lpm Ventilator Type Not Reportable Vent Mode Not Reportable FiO2 Not Reportable Inspiratory Time Not Reportable PEEP Not Reportable Pressure Support Not Reportable Pressure Control Not Reportable EPAP Not Reportable IPAP Not Reportable BiPAP Not Reportable Imaging: CXR 07/30 - hyperinfalted lungs; mild prominence in interstitial markings, possible CHF versus interstitial lung disease cxr 08/01 - bilateral increased pulm interstitial infiltrates , appears to be pulmonary congestion/edema Assessment: 83y F w/pmhx of COPD, active smoker, moderate 2018 with mild-mod MR/TR, CAD, HTN, HLD, HTN, GERD, IBS, chronic pain, h/o breast Ca s/p mastectomy on left 1990s, hypothyroidism; recent hospitalization for COPD exaccerbation; she presented to [facility] 08/01 for respiratory distress, suspected COPD exaccerbation with soem increased interstitial markings, given steroids and nebulizers, also noted to have hyponatremia. Started on empiric CAP therapy also. She remained with mild tachypnea but today developed increasing tachypnea , had change in mental status, more lethargic. ABG performed demonstrating acute respiratory acidosis. She demonstrated diffuse wheezing. She was upgraded to ICU. -Acute COPD exaccerbation -Acute hypercapneic Respiratory failure -acute pulmonary edema -suspected acute decompensated LV diastolic heart failure -Hyponatremia likely from volume overload -h/o Moderate HTN Plan: Neuro- -delirium from hypercapnea; seems to be improving now, more awake and alert -will repeat and trend ABG -suspect metabolic etiology -pain control; on celecoxib, hydrocodone/acetaminophen; morphine prn for pain and resp distress -aspiration prec -Delirium prec; avoid BDZ CVS- -BP stable, no tachycardia -CXR with pulm edema/congestion; no clear focal infiltrate -low suspicion for pneumonia to me -d/c IVF -IV lasix 40mg x1 now -repeat TTE to eval Aortic Valve and LV function -cont norvasc 10 -cont asa/statin -Cardiac Cath 2015 with mild-mod LAD and RCA disease; no intervention needed -Maintain MAP>65 Resp- -Acute hypercapnea; diffuse wheezing+; CXR 08/01 with congestion -Pulm congestion/edema with diffuse bronchospasm and COPD exacc also -IV diuretics -Solumedrol 125mg IV x1; solumedrol 40mg IV BID -Duoneb q2h for now; change to q4h once wheezing improved -CXR tomorrow -Empiric CAP tx; low suspiciion for pneumonia, nontoxic, mild wbc may be reactive, afebrile -Wean Fio2 to keep sat>92% -Bronchodilators PRN, Aspiration prec -discussion with Daughter; DNR; trial of intubation okay but she is on the fence also; further GOC/palliative care disucssions to be held. -At this time seems to be improved from prior signout given to me, i suspect she is less likely to be intubated. -Repeat ABG at 6pm ID- afebrile. wbc 14->13. CXR with congestion, no focal process. Nontoxic appearing. no sputum production. -legionella ag neg, str pneumo ag neg; blood cx neg x2 -Empiric CAP tx with CTX and Azithro (day#3); reassess tomorrow, may limit abx, suspicion low GI- -NPO -GI prophylaxis Renal- -Cr okay; K 4.8 today -noted hyponatremia 120, improved to 125; evidence of pulm congestion noted -may be more of a CHF component to this hyponatremia; will d/c NS infusion. Lasix 40mg IV x1 now -check BMP in evening -strict I/O, replete to keep K>4, Mg>2 -rodriguez as indicated Heme- -hg stable, plt stable -cont ASA for CAD -DVT proph with heparin sq and SCD Endo- Maintain BG<200, insulin protocol as needed. Cotn synthroid. Musculsk- pressure ulcer prophylaxis. Bedrest. Wounds- none Nutrition- NPO today DVT prophylaxis: SCD, heparin sq GI prophylaxis: ppi Central Line: no Arterial Line: no Rodriguez Cathetor: no Disposition: Patient requires Critical Care/ICU for hypercap resp failure req NIV, CHF exacc Patient Clinical Status: unstable, critical Code Status: DNR; trial of intubation okay reviewed case with palliative care physician and daughter at bedside; DNR, trial of intubation okay. Further GOC depending on clinical status and progress. Daughter seems to be on edge about trial of intubation status. will need to discuss further. Total Critical Care time is 65 minutes, excluding procedures/teaching Abrahan Bonilla MD [employer] (Electronically Signed)
--- NOTE | 2018-08-01 15:46 | CONSULT ---
Palliative / Hospice Consult Ordering Provider: Vandana Sy - PCPJose Daniel Referal Reason: Goals of care - Subjective Code Status: DNR Advance Directives Location: In Chart [facility] Part A Completed: Yes - on chart [facility] Part E Completed:: Yes - on chart - History or Present Illness History or Present Illness: 83 yo female who lives on her own was experiencing cough , SOB and weakness over the last 5 weeks and acutely worse over the last 3 days presented to ER and was admitted with sepsis due to pneumonia, hyponatremia and COPD exacerbation. She was on the floor, became acutely SOB and was transferred to ICU and placed on BiPAP. PMH is significant for COPD, CAD cath 2016, non stemi, irritable bowel, breast ca s/p mastectomy, anxiety, hemolytic anemia, arthritis , chronic pain, HTN, hypothyroid, hyperlipidemia, moderate , GERD, h/o DVT and seizure. She still smokes, no etoh, no drugs, retired from [email or web address], daughter Nanci is her HCP [phone]. All history is from pt, daughter and medical record. Significant labs Ekg-nsr, CXR increased interstitial lung markings, H/H 12.5/37, WBC 13.5, Na 125, BUN/Cr 8/.57 egfr 101 , BNP 649, tprot 7.1, alb 3.9 & ECHO EF 55-60%, diastolic dysfunction and mod pul HTN. Lab Values: Abnormal Lab Results 08/01/18 13:20 Patient Temperature Not Reportable ABG pH 7.13 L* ABG pH (Temp Correct) Not Reportable ABG pCO2 90 H* ABG pCO2 (Temp Corrct Not Reportable ABG pO2 82 ABG pO2 (Temp Correct Not Reportable ABG HCO3 23.5 ABG O2 Saturation 97.2 ABG Base Excess -1.8 Respiration Rate Not Reportable O2 Delivery Device nasal cannula 5lpm Ventilator Type Not Reportable Vent Mode Not Reportable FiO2 Not Reportable Inspiratory Time Not Reportable PEEP Not Reportable Pressure Support Not Reportable Pressure Control Not Reportable EPAP Not Reportable IPAP Not Reportable BiPAP Not Reportable Laboratory Last Values WBC 13.5 10^3/uL (3.5-10.8) H 07/31/18 07:46 RBC 4.04 10^6 /uL (3.70-4.87) 07/31/18 07:46 Hgb 12.5 g/dL (12.0-16.0) 07/31/18 07:46 Hct 37 % (35-47) 07/31/18 07:46 MCV 91 fL (80-97) 07/31/18 07:46 MCH 31 pg (27-31) 07/31/18 07:46 MCHC 34 g/dL (31-36) 07/31/18 07:46 RDW 16 % (10.5-15) H 07/31/18 07:46 Plt Count 337 10^3/uL (150-450) 07/31/18 07:46 MPV 7.6 fL (7.4-10.4) 07/31/18 07:46 Neut % (Auto) 87.1 % 07/31/18 07:46 Lymph % (Auto) 7.8 % 07/31/18 07:46 [place] % (Auto) 4.7 % 07/31/18 07:46 Eos % (Auto) 0.0 % 07/31/18 07:46 Baso % (Auto) 0.4 % 07/31/18 07:46 Absolute Neuts (auto) 11.7 10^3/ul (1.5-7.7) H 07/31/18 07:46 Absolute Lymphs (auto) 1.0 10^3/ul (1.0-4.8) 07/31/18 07:46 Absolute Monos (auto) 0.6 10^3/ul (0-0.8) 07/31/18 07:46 Absolute Eos (auto) 0.0 10^3/ul (0-0.6) 07/31/18 07:46 Absolute Basos (auto) 0.1 10^3/ul (0-0.2) 07/31/18 07:46 Absolute Nucleated RBC 0.0 10^3/ul 07/31/18 07:46 Nucleated RBC % 0.0 07/31/18 07:46 Patient Temperature Not Reportable 08/01/18 13:20 ABG pH 7.13 (7.35-7.45) L* 08/01/18 13:20 ABG pH (Temp Correct) Not Reportable 08/01/18 13:20 ABG pCO2 90 mmHg (35-45) H* 08/01/18 13:20 ABG pCO2 (Temp Corrct Not Reportable 08/01/18 13:20 ABG pO2 82 mmHg (80-100) 08/01/18 13:20 ABG pO2 (Temp Correct Not Reportable 08/01/18 13:20 ABG HCO3 23.5 mmol/L (19-31) 08/01/18 13:20 ABG O2 Saturation 97.2 % (94.0-98.0) 08/01/18 13:20 ABG Base Excess -1.8 mmol/L (-2.0-2.0) 08/01/18 13:20 Respiration Rate Not Reportable 08/01/18 13:20 O2 Delivery Device nasal cannula 5lpm 08/01/18 13:20 Ventilator Type Not Reportable 08/01/18 13:20 Vent Mode Not Reportable 08/01/18 13:20 FiO2 Not Reportable 08/01/18 13:20 Inspiratory Time Not Reportable 08/01/18 13:20 PEEP Not Reportable 08/01/18 13:20 Pressure Support Not Reportable 08/01/18 13:20 Pressure Control Not Reportable 08/01/18 13:20 EPAP Not Reportable 08/01/18 13:20 IPAP Not Reportable 08/01/18 13:20 BiPAP Not Reportable 08/01/18 13:20 Sodium 125 mmol/L (135-145) L 07/31/18 07:46 Potassium 4.8 mmol/L (3.5-5.0) 07/31/18 07:46 Chloride 92 mmol/L (101-111) L 07/31/18 07:46 Carbon Dioxide 26 mmol/L (22-32) 07/31/18 07:46 Anion Gap 7 mmol/L (2-11) 07/31/18 07:46 BUN 8 mg/dL (6-24) 07/31/18 07:46 Creatinine 0.57 mg/dL (0.51-0.95) 07/31/18 07:46 Est GFR ( Amer) 122.3 (>60) 07/31/18 07:46 Est GFR (Non-Af Amer) 101.0 (>60) 07/31/18 07:46 BUN/Creatinine Ratio 14.0 (8-20) 07/31/18 07:46 Glucose 132 mg/dL (70-100) H 07/31/18 07:46 Serum Osmolality 266 mOsm/kg (275-295) L 07/30/18 15:37 Lactic Acid 0.8 mmol/L (0.5-2.0) 07/30/18 15:37 Calcium 9.0 mg/dL (8.6-10.3) 07/31/18 07:46 Total Bilirubin 0.40 mg/dL (0.2-1.0) 07/30/18 15:37 AST 26 U/L (13-39) 07/30/18 15:37 ALT 20 U/L (7-52) 07/30/18 15:37 Alkaline Phosphatase 210 U/L (34-104) H 07/30/18 15:37 Troponin I 0.01 ng/mL (<0.04) 07/30/18 15:37 C-Reactive Protein 39.53 mg/L (<8.01) H 07/30/18 15:37 B-Natriuretic Peptide 649 pg/mL (<=100) H 07/30/18 15:37 Total Protein 7.1 g/dL (6.4-8.9) 07/30/18 15:37 Albumin 3.9 g/dL (3.2-5.2) 07/30/18 15:37 Globulin 3.2 g/dL (2-4) 07/30/18 15:37 Albumin/Globulin Ratio 1.2 (1-3) 07/30/18 15:37 Urine Color Yellow 07/30/18 18:47 Urine Appearance Cloudy 07/30/18 18:47 Urine pH 5.0 (5-9) 07/30/18 18:47 Ur Specific [place] 1.015 (1.010-1.030) 07/30/18 18:47 Urine Protein 3+(>=500 mg/dl) (Negative) A 07/30/18 18:47 Urine Ketones Negative (Negative) 07/30/18 18:47 Urine Blood Negative (Negative) 07/30/18 18:47 Urine Nitrate Negative (Negative) 07/30/18 18:47 Urine Bilirubin Negative (Negative) 07/30/18 18:47 Urine Urobilinogen Negative (Negative) 07/30/18 18:47 Ur Leukocyte Esterase Negative (Negative) 07/30/18 18:47 Urine WBC (Auto) Trace(0-5/hpf) (Absent) 07/30/18 18:47 Urine RBC (Auto) Trace(0-2/hpf) (Absent) 07/30/18 18:47 Ur Squamous Epith Cells Present (Absent) A 07/30/18 18:47 Urine Bacteria Absent (Absent) 07/30/18 18:47 Urine Osmolality 412 mOsm/kg (100-1150) 07/30/18 15:00 U Sodium Concentration 49 mmol/L 07/30/18 18:47 Urine Glucose Negative (Negative) 07/30/18 18:47 Urine Ascorbic Acid * (Negative) A 07/30/18 18:47 Influenza A (Rapid) Negative (Negative) 07/31/18 14:20 Influenza B (Rapid) Negative (Negative) 07/31/18 14:20 - Objective Active Medications: Hydrocodone Bitart/Acetaminophen ([place] 10/325 (Nf)) 1 tab PO Q6H PRN PRN Reason: PAIN Albuterol (Ventolin Hfa Inhaler*) 2 puff INH Q4H PRN PRN Reason: SOB/WHEEZING Albuterol/Ipratropium (Duoneb (Albuterol 2.5 Mg/Ipratropium 0.5 Mg)) 1 neb INH Q2H [facility] Amlodipine Besylate (Norvasc Tab*) 10 mg PO DAILY [facility] Last Admin: 08/01/18 08:37 Dose: 10 mg Aspirin (Aspirin Ec Tab*) 81 mg PO DAILY [facility] Last Admin: 08/01/18 08:40 Dose: 81 mg Atorvastatin Calcium (Lipitor*) 80 mg PO BEDTIME [facility] Last Admin: 07/31/18 23:53 Dose: 80 mg Celecoxib (Celebrex Cap*) 200 mg PO QAM [facility] Last Admin: 08/01/18 08:32 Dose: 200 mg Cyanocobalamin (Vitamin B12 Tab*) 500 mcg PO DAILY [facility] Last Admin: 08/01/18 09:03 Dose: Not Given Docusate Sodium (Colace Cap*) 100 mg PO BID [facility] Last Admin: 08/01/18 09:03 Dose: Not Given Fluticasone Propionate (Flonase Nasal [place] 50mcg*) 2 spray BOTH NARES DAILY [facility] Last Admin: 08/01/18 12:56 Dose: Not Given Folic Acid (Folvite Tab*) 1 mg PO DAILY [facility] Last Admin: 08/01/18 09:03 Dose: Not Given Gabapentin (Neurontin Cap(*)) 600 mg PO TID [facility] Last Admin: 08/01/18 13:05 Dose: Not Given Guaifenesin (Mucinex*) 600 mg PO BID [facility] Last Admin: 08/01/18 08:31 Dose: 600 mg Heparin Sodium (Porcine) (Heparin Vial(*)) 5,000 units SUBCUT Q12HR [facility] Last Admin: 08/01/18 08:39 Dose: 5,000 units Azithromycin (Zithromax 500 Mg/250 Ml) 500 mg in 250 mls @ 250 mls/hr IVPB Q24H [facility] Last Admin: 07/31/18 20:07 Dose: 250 mls/hr Ceftriaxone Sodium 1 gm/ (Sodium Chloride) 50 mls @ 200 mls/hr IVPB Q24H [facility] Last Admin: 07/31/18 21:47 Dose: 200 mls/hr Levothyroxine Sodium (Synthroid Tab*) 25 mcg PO QAM [facility] Last Admin: 08/01/18 08:40 Dose: 25 mcg Methylprednisolone Sodium Succinate (Solu-Medrol 40 Mg) 40 mg IV Q12H [facility] Metoprolol Tartrate (Lopressor Tab*) 25 mg PO BID [facility] Last Admin: 08/01/18 08:37 Dose: 25 mg Mirtazapine (Remeron Tab*) 7.5 mg PO QAM [facility] Last Admin: 08/01/18 08:31 Dose: 7.5 mg Mirtazapine (Remeron Tab*) 15 mg PO BEDTIME [facility] Last Admin: 07/31/18 23:52 Dose: 15 mg Morphine Sulfate (Morphine Inj (Syringe))*) 1 mg IV ONCE PRN PRN Reason: PAIN Morphine Sulfate (Morphine Inj (Syringe))*) 1 mg IV Q4H PRN PRN Reason: Severe Pain/RR>25 Multivitamins/Minerals (Theragran/Minerals Tab*) 1 tab PO DAILY [facility] Last Admin: 08/01/18 09:03 Dose: Not Given Nicotine (Nicotine Patch 21 Mg/24 Hr*) 1 patch TRANSDERM DAILY@0800 [facility] Last Admin: 08/01/18 08:38 Dose: 1 patch Nicotine Polacrilex (Nicotine Gum*) 2 mg PO Q2H PRN PRN Reason: CRAVING Nicotine Polacrilex (Nicotine Lozenge Mini) 4 mg MT Q2H PRN PRN Reason: CRAVINGS Pantoprazole Sodium (Protonix Tab*) 40 mg PO DAILY [facility] Last Admin: 08/01/18 08:40 Dose: 40 mg Pharmacy Profile Note (Nicotine Patch Removal Note*) 1 note FOLLOW UP 2100 [facility] Last Admin: 08/01/18 00:02 Dose: 1 note Prochlorperazine Edisylate (Compazine Inj*) 5 mg IV Q6H PRN PRN Reason: NAUSEA/VOMITING Umeclidinium [place] (Incruse Ellipta Mdi (Nf)) 1 inh INH DAILY [facility] Last Admin: 08/01/18 07:44 Dose: Not Given Vital Signs: Vital Signs: Temp Pulse Resp BP Pulse Ox 95.4 F 66 15 120/50 100 08/01/18 15:00 08/01/18 15:00 08/01/18 15:05 08/01/18 15:00 08/01/18 15:00 Patient Weight: Weight 51.256 kg Intake and Output: Intake & Output 07/30/18 07/31/18 08/01/18 08/02/18 06:59 06:59 06:59 06:59 Intake Total 1750 420 990 Output Total 100 Balance 1750 320 990 Weight 51.256 kg Intake: IV Fluids 1750 990 NS (0.9%) 700 Oral 0 420 0 Output: Urine 100 Other: Estimated Void Medium Medium # Bowel Movements 0 1 Estimated Stool Amount Large # Voids 4 0 ADLs: Meal Record Start: 07/30/18 20: 49 Freq: DAILY@0900,1400,1800 Status: Complete Protocol: Created 07/30/18 20:49 System (Rec: 07/30/18 20:49 System MED-C12) Document 07/31/18 09:00 [id number] (Rec: 07/31/18 09:26 [id number] MED-M02) Document 07/31/18 14:00 [id number] (Rec: 07/31/18 16:17 [id number] MED-C14) Document 07/31/18 18:00 [id number] (Rec: 07/31/18 19:06 [id number] MED-C09) Document 08/01/18 09:00 [id number] (Rec: 08/01/18 14:06 [id number] MED-C09) ADLs: Meal Record Start: 08/01/18 14: 35 Freq: 09,13,18 Status: Active Protocol: Created 08/01/18 14:35 [id number] (Rec: 08/01/18 14:35 [id number] ICU-M18) Intake and Output Start: 07/30/18 14: 39 Freq: Status: Complete Protocol: Created 07/30/18 14:39 System (Rec: 07/30/18 14:39 System [id number]) Document 08/01/18 00:50 [id number] (Rec: 08/01/18 00:50 [id number] MED-C16) Intake and Output Start: 07/30/18 20: 49 Freq: DAILY@0600,1400,2200 Status: Complete Protocol: Created 07/30/18 20:49 System (Rec: 07/30/18 20:49 System MED-C12) Document 07/30/18 22:00 [id number] (Rec: 07/30/18 22:55 [id number] MED-C16) Document 07/31/18 06:00 [id number] (Rec: 07/31/18 06:27 [id number] MED-C07) Document 07/31/18 14:00 [id number] (Rec: 07/31/18 16:17 [id number] MED-C14) Document 07/31/18 22:00 [id number] (Rec: 07/31/18 22:02 [id number] MED-C15) Document 08/01/18 05:44 [id number] (Rec: 08/01/18 05:44 [id number] MED-C16) Intake and Output Start: 08/01/18 14: 35 Freq: 06,14,2200 Status: Active Protocol: Created 08/01/18 14:35 [id number] (Rec: 08/01/18 14:35 [id number] ICU-M18) Document 08/01/18 15:05 [id number] (Rec: 08/01/18 15:06 [id number] ICU-C25) Eyes: No Scleral Icterus Ears/Nose/Mouth/Throat: Mucous Membranes Moist Neck: Trachea Midline Cardiovascular: RRR - Normal S1 and S2 Respiratory: - - diffuse wheezing & tightness Abdominal: NL Sounds; No Tenderness; No Distention Extremities: No Edema Neurological: Alert and Oriented x 3, NL Muscle Strength and Tone - Assessment Assessment: 83yo female with admitted with COPD exacerbation, hyponatremia and CHF - Plan Consult Plan (MU): Palliative Plan: Spoke with daughter Nanci because pt was tired. Pt just changed code status from FULL to DNR with trial of intubation with provider before being transferred to ICU. I clarified with daughter and she agreed. Daughter wanted to let us know that pt had "allergy" to prednisone swollen eyes, irritable. Called Dr. Burciaga office to clarify reaction so solumedrol could be given. Daughter also stressed that her mom has chronic pain which wasn't being treated as an outpatient. Confirmed with ciso that meds are ordered for pain. We discussed potential of pt going to [facility] if she is deconditioned once she is ready for discharge. We discussed hospice at her request and brochure was given. Pt had family member that had used hospice. If pt elects to go home she will need more services like VNS and aides. KPS 60%, PPS 60% - Time On Unit Date of Evaluation: 08/01/18 Hospice Consult Time in: 02:30 Hospice Consult Time Out: 04:00 Hospice Consult Time Total: 90 > 50% of Time Spend In Counseling or Coordinating Care: Yes
[2018-08-01] MEDS: Albuterol/Ipratropium NEB.SOL* Albuterol 2.5 MG/Ipratropium 0.5 MG 3 ML INH SCH ×4 (16:05→23:35)
--- NOTE | 2018-08-01 17:46 | PN ---
Subjective Date of Service: 08/01/18 Interval History: HOSPITALIST PROGRESS NOTE Patient seen and examined multiple times during the day. She was mildly dyspneic in AM, but as the day went by she became more tired, lethargic, and confused. ABG revealed respiratory acidosis and she was transferred to ICU for BiPAP. Family History: Unchanged from Admission Social History: Unchanged from Admission Past Medical History: Unchanged from Admission Objective Active Medications: Hydrocodone Bitart/Acetaminophen ([place] 10/325 (Nf)) 1 tab PO Q6H PRN PRN Reason: PAIN Albuterol (Ventolin Hfa Inhaler*) 2 puff INH Q4H PRN PRN Reason: SOB/WHEEZING Albuterol/Ipratropium (Duoneb (Albuterol 2.5 Mg/Ipratropium 0.5 Mg)) 1 neb INH Q2H [facility] Last Admin: 08/01/18 16:05 Dose: 1 neb Amlodipine Besylate (Norvasc Tab*) 10 mg PO DAILY [facility] Last Admin: 08/01/18 08:37 Dose: 10 mg Aspirin (Aspirin Ec Tab*) 81 mg PO DAILY [facility] Last Admin: 08/01/18 08:40 Dose: 81 mg Atorvastatin Calcium (Lipitor*) 80 mg PO BEDTIME [facility] Last Admin: 07/31/18 23:53 Dose: 80 mg Celecoxib (Celebrex Cap*) 200 mg PO QAM [facility] Last Admin: 08/01/18 08:32 Dose: 200 mg Cyanocobalamin (Vitamin B12 Tab*) 500 mcg PO DAILY [facility] Last Admin: 08/01/18 09:03 Dose: Not Given Docusate Sodium (Colace Cap*) 100 mg PO BID [facility] Last Admin: 08/01/18 09:03 Dose: Not Given Fluticasone Propionate (Flonase Nasal [place] 50mcg*) 2 spray BOTH NARES DAILY [facility] Last Admin: 08/01/18 12:56 Dose: Not Given Folic Acid (Folvite Tab*) 1 mg PO DAILY [facility] Last Admin: 08/01/18 09:03 Dose: Not Given Gabapentin (Neurontin Cap(*)) 600 mg PO TID [facility] Last Admin: 08/01/18 13:05 Dose: Not Given Guaifenesin (Mucinex*) 600 mg PO BID [facility] Last Admin: 08/01/18 08:31 Dose: 600 mg Heparin Sodium (Porcine) (Heparin Vial(*)) 5,000 units SUBCUT Q12HR [facility] Last Admin: 08/01/18 08:39 Dose: 5,000 units Azithromycin (Zithromax 500 Mg/250 Ml) 500 mg in 250 mls @ 250 mls/hr IVPB Q24H [facility] Last Admin: 07/31/18 20:07 Dose: 250 mls/hr Ceftriaxone Sodium 1 gm/ (Sodium Chloride) 50 mls @ 200 mls/hr IVPB Q24H [facility] Last Admin: 07/31/18 21:47 Dose: 200 mls/hr Levothyroxine Sodium (Synthroid Tab*) 25 mcg PO QAM [facility] Last Admin: 08/01/18 08:40 Dose: 25 mcg Methylprednisolone Sodium Succinate (Solu-Medrol 40 Mg) 40 mg IV Q12H [facility] Metoprolol Tartrate (Lopressor Tab*) 25 mg PO BID [facility] Last Admin: 08/01/18 08:37 Dose: 25 mg Mirtazapine (Remeron Tab*) 7.5 mg PO QAM [facility] Last Admin: 08/01/18 08:31 Dose: 7.5 mg Mirtazapine (Remeron Tab*) 15 mg PO BEDTIME [facility] Last Admin: 07/31/18 23:52 Dose: 15 mg Morphine Sulfate (Morphine Inj (Syringe))*) 1 mg IV ONCE PRN PRN Reason: PAIN Morphine Sulfate (Morphine Inj (Syringe))*) 1 mg IV Q4H PRN PRN Reason: Severe Pain/RR>25 Multivitamins/Minerals (Theragran/Minerals Tab*) 1 tab PO DAILY [facility] Last Admin: 08/01/18 09:03 Dose: Not Given Nicotine (Nicotine Patch 21 Mg/24 Hr*) 1 patch TRANSDERM DAILY@0800 [facility] Last Admin: 08/01/18 08:38 Dose: 1 patch Nicotine Polacrilex (Nicotine Gum*) 2 mg PO Q2H PRN PRN Reason: CRAVING Nicotine Polacrilex (Nicotine Lozenge Mini) 4 mg MT Q2H PRN PRN Reason: CRAVINGS Pantoprazole Sodium (Protonix Tab*) 40 mg PO DAILY [facility] Last Admin: 08/01/18 08:40 Dose: 40 mg Pharmacy Profile Note (Nicotine Patch Removal Note*) 1 note FOLLOW UP 2100 [facility] Last Admin: 08/01/18 00:02 Dose: 1 note Prochlorperazine Edisylate (Compazine Inj*) 5 mg IV Q6H PRN PRN Reason: NAUSEA/VOMITING Umeclidinium [place] (Incruse Ellipta Mdi (Nf)) 1 inh INH DAILY [id number] Last Admin: 08/01/18 07:44 Dose: Not Given Vital Signs - 8 hr 08/01/18 08/01/18 08/01/18 09:47 10:30 11:11 Temperature 97.4 F Pulse Rate 71 Respiratory 24 24 24 Rate Blood Pressure 134/50 (mmHg) O2 Sat by Pulse 93 Oximetry 08/01/18 08/01/18 08/01/18 12:51 14:14 14:15 Temperature 97.0 F Pulse Rate 73 74 74 Respiratory 24 18 16 Rate Blood Pressure 133/43 144/62 154/63 (mmHg) O2 Sat by Pulse 94 98 97 Oximetry 08/01/18 08/01/18 08/01/18 14:16 14:30 14:37 Temperature 95.0 F 95 F Pulse Rate 71 72 74 Respiratory 16 15 18 Rate Blood Pressure 136/73 144/62 (mmHg) O2 Sat by Pulse 99 98 98 Oximetry 08/01/18 08/01/18 08/01/18 14:45 15:00 15:05 Temperature 95.4 F 95.4 F Pulse Rate 73 66 Respiratory 22 19 15 Rate Blood Pressure 129/49 120/50 (mmHg) O2 Sat by Pulse 97 100 Oximetry 08/01/18 08/01/18 08/01/18 15:15 15:30 15:36 Temperature 96.1 F 96.4 F Pulse Rate 71 72 70 Respiratory 18 18 17 Rate Blood Pressure 152/60 142/58 (mmHg) O2 Sat by Pulse 96 95 98 Oximetry 08/01/18 08/01/18 08/01/18 15:46 16:00 16:01 Temperature 96.6 F 96.6 F 96.8 F Pulse Rate 68 70 70 Respiratory 14 14 18 Rate Blood Pressure 138/51 113/54 (mmHg) O2 Sat by Pulse 96 96 100 Oximetry 08/01/18 08/01/18 08/01/18 16:08 16:15 16:21 Temperature 96.8 F Pulse Rate 71 74 Respiratory 16 15 13 Rate Blood Pressure 132/55 (mmHg) O2 Sat by Pulse 98 100 Oximetry 08/01/18 08/01/18 08/01/18 16:31 16:45 17:00 Temperature 97.2 F 97.3 F 97.5 F Pulse Rate 73 70 69 Respiratory 17 21 18 Rate Blood Pressure 128/89 107/48 (mmHg) O2 Sat by Pulse 97 100 93 Oximetry 08/01/18 08/01/18 17:01 17:11 Temperature 97.9 F Pulse Rate 72 Respiratory 22 20 Rate Blood Pressure 136/103 (mmHg) O2 Sat by Pulse 95 Oximetry Oxygen Devices in Use Now: BiPAP Appearance: Elderly lady lying in bed in mild respiratory distress. Eyes: No Scleral Icterus Ears/Nose/Mouth/Throat: Mucous Membranes Moist Neck: Trachea Midline Respiratory: Symmetrical Chest Expansion and Respiratory Effort, - - BS+ bilaterally with scattered wheezes Cardiovascular: RRR - Normal S1 and S2 Abdominal: NL Sounds; No Tenderness; No Distention Neurological: - - Lethargic, arousable to voice, oriented to self Result Diagrams: 07/31/18 07:46 07/31/18 07:46 Microbiology and Other Data: Microbiology 07/30/18 18:47 Legionella Urinary Antigen - Final Urine Negative Legionella Antigen Streptococcus pneumoniae Ag Screen - Final Negative S. pneumo Antigen Assess/Plan/Problems-Billing Assessment: Mrs Walker is an 83yo F with PMH of COPD, CAD, IBS, breast CA, anxiety, hemolytic anemia, chronic pain, HTN, HLD, , GERD, DVT; who presented to ED with c/o dyspnea, found to have COPD exacerbation secondary to pneumonia. - Patient Problems (1) Sepsis Comment: - Met sepsis criteria on admission with leukocytosis and tachypnea. - Source is pneumonia. (2) Acute hypoxemic respiratory failure Comment: - Acute hypoxemic and hypercapnic respiratory failure. - Transfer to ICU for BiPAP. - Critical care consult requested. (3) COPD exacerbation Comment: - Continue bronchodilators. - Patient states she had chest pain and swelling with steroids in the past. - Continue low dose Morphine for air hunger and monitor. (4) Pneumonia Comment: - Continue Ceftriaxone and Zithromax. (5) Anxiety Comment: - As per PCP, patient has confusion with benzos - continue to monitor. - Morphine may help with her air hunger, and help decrease her anxiety. (6) Tobacco abuse Comment: - She continues to smoke >20 cigarrettes a day. (7) DVT prophylaxis Comment: - SQ heparin. (8) DNR (do not resuscitate) Comment: - D/w HCP (daughter) - according to her MOLST, patient is DNR with trial of BiPAP and intubation. Daughter confirms these are her mother's issues. Status and Disposition: Inpatient. Fifty minutes critical care time. Daughter updated at bedside. Overall prognosis is poor.
--- NOTE | 2018-08-01 17:53 | ECHO ---
*[facility]* [place] [address] Fax #: [phone] Transthoracic Echocardiogram Patient: Nai Walker Height: 61 in / 154.9 H cm : 1935 Weight: 112.8 lb / Study Date: 08/01/2018 51.3 kg Age: 83 BP: 120 / 50 Gender: F BMI/BSA: 21.4 kg/m^2 / HR: 69 bpm 1.48 m^2 *Radiographer Angiogram: * Kristan Marsh [facility] *Referring Physician: * Abrahan Bonilla *Reading Physician: * Robert Meeks MD Indications: Congestive Heart Failure. History: Aortic stenosis. Chronic obstructive pulmonary disease. PMH: Myocardial infarction. Risk factors: Current tobacco use. Hypertension. Dyslipidemia. Conclusions Summary: 1. Left ventricle: The cavity size is normal. Wall thickness is normal. Systolic function is normal. The estimated ejection fraction is 55-60%. Wall motion is normal; there are no regional wall motion abnormalities. 2. Right ventricle: Systolic function is normal. Systolic pressure is moderately to severely increased. 3. Mitral valve: There is moderate regurgitation. 4. Aortic valve: Valve mobility is restricted. The findings are consistent with moderate to severe stenosis. The mean systolic gradient is 20.0 mm Hg. The valve area by the peak velocity method is 0.70 cm^2. The DI is 0.23. 5. Tricuspid valve: There is moderate-severe regurgitation. 6. Pericardium, extracardiac: There is no significant pericardial effusion. There is a left pleural effusion. 7. Compared to study of 09/08/17, the left ventricle function and mitral regurgitation are the same. The is worse. Study data: Transthoracic echocardiogram. Procedure: Transthoracic echocardiography was performed. Image quality was fair. The study was technically limited due to restricted patient mobility and Patient on Bipap. Complete 2D, spectral Doppler, and color flow Doppler. Location: ICU Patient status: Inpatient. Patient room number: 8. Rhythm: Normal sinus rhythm. Findings Left ventricle: The cavity size is normal. Wall thickness is normal. Systolic function is normal. The estimated ejection fraction is 55-60%. Wall motion is normal; there are no regional wall motion abnormalities. Left ventricular diastolic function parameters are indeterminate. Right ventricle: The cavity size is normal. Wall thickness is mildly increased. Systolic function is normal. Systolic pressure is moderately to severely increased. Left atrium: The atrium is at the upper limits of normal in size. Right atrium: The atrium is normal in size. Mitral valve: The annulus is moderately calcified. The leaflets are mildly thickened. There is no evidence of stenosis. There is moderate regurgitation. The valve area is 1.6 cm^2. The valve area index is 1.1 cm^2/m^2. The valve area by pressure half-time is 2.9 cm^2. The valve area index by pressure half-time is 1.98 cm^2/m^2. The valve area (LVOT continuity) is 1.6 cm^2. The valve area index (LVOT continuity) is 1.1 cm^2/m^2. The mean diastolic gradient is 2.0 mm Hg. The peak diastolic gradient is 6.0 mm Hg. Aortic valve: The annulus is mildly calcified. The leaflets are severely calcified. Valve mobility is restricted. The findings are consistent with moderate to severe stenosis. There is mild regurgitation. The valve area by the velocity-time integral method is 0.70 cm^2. The valve area index by the velocity-time integral method is 0.47 cm^2/m^2. The valve area by the peak velocity method is 0.70 cm^2. The valve area index by the peak velocity method is 0.47 cm^2/m^2. The ratio of LVOT to aortic valve mean velocity is 0.27. The valve area by the mean velocity method is 0.8 cm^2. The valve area index by the mean velocity method is 0.52 cm^2/m^2. The mean systolic gradient is 20.0 mm Hg. The peak systolic gradient is 36.0 mm Hg. Tricuspid valve: The leaflets are normal thickness. There is no evidence of stenosis. There is moderate-severe regurgitation. Pulmonic valve: Not well visualized. The leaflets are normal thickness. There is trivial regurgitation. The peak systolic gradient is 2.0 mm Hg. Aorta: Aortic root: The aortic root is appears normal. Ascending aorta: The ascending aorta is not visualized. Aortic arch: The aortic arch is not visualized. Pericardium: There is no significant pericardial effusion. There is a left pleural effusion. Pulmonary arteries: Not well visualized. Systemic veins: Inferior vena cava: The vessel is dilated. The respirophasic diameter changes are blunted (< 50%). Measurements Left ventricle Value Ref Aortic valve continued Value Ref SASHA, LAX 4.3 cm 3.8 - 5.2 Peak v, S 3 m/sec ----- ESD, LAX 2.9 cm 2.2 - 3.5 VTI, S 71.0 cm ----- FS, LAX 34 % 27 - 45 Accel time 95 ms ----- PW, ED, LAX (H) 1.0 cm 0.6 - 0.9 Mean grad, S 20.0 mm Hg ----- EF 63 % 54 - 74 Peak grad, S 36.0 mm Hg ----- E', lat cooper, TDI 10.1 cm/sec >=10.0 YAN, VTI 0.70 cm^2 - ---- E/e', lat cooper, 11 YAN, Vmax 0.70 cm^2 ---- - TDI AR peak v 2.56 m/sec ----- E', med cooper, TDI (L) 6.3 cm/sec >=7.0 AR PHT 328 ms - ---- E/e', med cooper, 17 AR peak grad 26 mm Hg ---- - TDI E', avg, TDI 8.2 cm/sec Mitral valve Value Ref E/e', avg, TDI 13 <=14 Peak E 1.09 m/sec - ---- Peak A 0.4 m/sec ----- LVOT Value Ref Decel time 215 ms ----- Diam, S 1.90 cm PHT 75 ms ----- Peak rena, S 0.7 m/sec Mean grad, D 2.0 mm Hg ----- VTI, S 18.0 cm Peak grad, D 6.0 mm Hg ----- Mean grad, S 1 mm Hg Peak E/A ratio 2.7 ----- MVA, PHT 2.9 cm^2 ----- Ventricular septum Value Ref ERO, PISA 0.19 cm^2 ----- IVS, ED, LAX 0.9 cm 0.6 - 0.9 MR vol, PISA 27 ml ----- MR fraction, PISA 36 % ----- Right ventricle Value Ref SASHA, LAX 2.3 cm Pulmonic valve Value Ref SASHA minor ax, A4C 2.0 cm 1.9 - 3.5 Peak v, S 0.72 m/sec ----- mid Peak grad, S 2.0 mm Hg ----- Pressure, S 54 mm Hg Tricuspid valve Value Ref Left atrium Value Ref TR peak v (H) 3.4 m/sec <=2.8 AP dim, ES 3.50 cm 2.70 - Peak RV-RA grad, S 46 mm Hg ----- 3.80 ML dim, A4C 4.1 cm Aortic root Value Ref SI dim, A4C 5.2 cm Root diam 2.6 cm <3.8 Vol/bsa, ES, 1-p 31 ml/m^2 11 - 40 A4C Pulmonary artery Value Ref Vol/bsa, ES, A/L 32 ml/m^2 16 - 34 Pressure, S 52.0 mm Hg ----- Right atrium Value Ref Inferior vena cava Value Ref SI dim, ES 4.4 cm 3.4 - 5.3 Diam 2.4 cm ----- ML dim, ES, A4C 3.1 cm 2.6 - 4.4 Estimated RAP 8 mm Hg Aortic valve Value Ref Cooper diam, ED 1.9 cm Legend: (L) and (H) [place] values outside specified reference range. Prepared and electronically signed by Robert Meeks MD 08/01/2018 17:53
[2018-08-01] MEDS ORDERED: Haloperidol INJ IV/IM* 5 MG/ML AMP IV SLOW PU ONE (18:11)
[2018-08-01] MEDS ORDERED: Haloperidol INJ IV/IM* 5 MG/ML AMP ONE (18:12)
[2018-08-01] MEDS: Azithromycin 500 mg/250 ml NS 500 MG/250 ML BAG IVPB SCH (20:45)
[2018-08-01 21:45] LABS: BUN/Creatinine Ratio 23.7 (8-20); Calcium 8.4 mg/dL (8.6-10.3); EGFR African American 87.7 (>60); EGFR Non-African American 72.5 (>60)
[2018-08-01] MEDS ORDERED: Haloperidol INJ IV/IM* 5 MG/ML AMP IV SLOW PU PRN (22:09)
[2018-08-01] MEDS: Atorvastatin* 80 MG TAB PO SCH (22:20)
[2018-08-01] MEDS: cefTRIAXone(*) 1 GM in NS 0.9% 50 ML* 50 ML IVPB SCH (22:22)
[2018-08-02] MEDS: Albuterol/Ipratropium NEB.SOL* Albuterol 2.5 MG/Ipratropium 0.5 MG 3 ML INH SCH ×4 (03:12→19:56)
[2018-08-02] MEDS: methylPREDNISolone SOD 40 MG* 1 ML VIAL IV SCH ×2 (04:35→14:11)
[2018-08-02 05:28] LABS: Hematocrit 34 % (35-47); Hemoglobin 11.4 g/dL (12.0-16.0); Mean Corpuscular HGB Conc 34 g/dL (31-36); Mean Corpuscular Hemoglobin 31 pg (27-31); Mean Corpuscular Volume 92 fL (80-97); Mean Platelet Volume 7.6 fL (7.4-10.4); Platelet Count 300 10^3/uL (150-450); Red Blood Count 3.68 10^6 /uL (3.70-4.87); Red Cell Distribution Width 16 % (10.5-15); White Blood Count 7.8 10^3/uL (3.5-10.8)
[2018-08-02 05:50] LABS: Albumin 3.5 g/dL (3.2-5.2); Albumin/Globulin Ratio 1.3 (1-3); BUN/Creatinine Ratio 24.4 (8-20); EGFR African American 80.4 (>60); EGFR Non-African American 66.4 (>60); Globulin 2.8 g/dL (2-4); Indirect Bilirubin 0.2 mg/dL (0.3-1.0); Magnesium 1.8 mg/dL (1.9-2.7); Phosphorus 2.7 mg/dL (2.5-5.0); Potassium 4.8 mmol/L (3.5-5.0); Total Bilirubin 0.3 mg/dL (0.2-1.0); Total Protein 6.3 g/dL (6.4-8.9)
[2018-08-02] MEDS: Morphine 4 MG/ML VIAL (1 ml) 4 MG/ML VIAL IV PRN ×2 (06:54→11:15)
[2018-08-02] MEDS: Umeclidinium 62.5 MDI(NF) MDI INH SCH (07:26)
[2018-08-02] MEDS ORDERED: Magnesium Sulfate 2 GM IV* 2 GM/50 ML BAG IVPB ONE (07:34)
--- NOTE | 2018-08-02 08:30 | PN ---
Subjective Date of Service: 08/02/18 Interval History: HOSPITALIST PROGRESS NOTE Patient seen and examined at bedside. Care reviewed and d/w Fifi Machado RN. She's more awake today. Still dyspneic and uncomfortable. Asks why God didn't take her yesterday. Does not want to wear BiPAP ever again. Family History: Unchanged from Admission Social History: Unchanged from Admission Past Medical History: Unchanged from Admission Objective Active Medications: Hydrocodone Bitart/Acetaminophen ([place] 10/325 (Nf)) 1 tab PO Q6H PRN PRN Reason: PAIN Albuterol (Ventolin Hfa Inhaler*) 2 puff INH Q4H PRN PRN Reason: SOB/WHEEZING Albuterol/Ipratropium (Duoneb (Albuterol 2.5 Mg/Ipratropium 0.5 Mg)) 1 neb INH [id number] AWAKE [facility] Amlodipine Besylate (Norvasc Tab*) 10 mg PO DAILY [facility] Last Admin: 08/01/18 08:37 Dose: 10 mg Aspirin (Aspirin Ec Tab*) 81 mg PO DAILY [facility] Last Admin: 08/01/18 08:40 Dose: 81 mg Atorvastatin Calcium (Lipitor*) 80 mg PO BEDTIME [facility] Last Admin: 08/01/18 22:20 Dose: Not Given Celecoxib (Celebrex Cap*) 200 mg PO QAM [facility] Last Admin: 08/01/18 08:32 Dose: 200 mg Cyanocobalamin (Vitamin B12 Tab*) 500 mcg PO DAILY [facility] Last Admin: 08/01/18 09:03 Dose: Not Given Docusate Sodium (Colace Cap*) 100 mg PO BID [facility] Last Admin: 08/01/18 22:20 Dose: Not Given Fluticasone Propionate (Flonase Nasal [place] 50mcg*) 2 spray BOTH NARES DAILY [facility] Last Admin: 08/01/18 12:56 Dose: Not Given Folic Acid (Folvite Tab*) 1 mg PO DAILY [facility] Last Admin: 08/01/18 09:03 Dose: Not Given Gabapentin (Neurontin Cap(*)) 600 mg PO TID [facility] Last Admin: 08/01/18 22:26 Dose: Not Given Guaifenesin (Mucinex*) 600 mg PO BID [facility] Last Admin: 08/01/18 22:26 Dose: Not Given Haloperidol Lactate (Haldol Inj Iv/Im*) 5 mg IV SLOW PU Q4H PRN PRN Reason: Agitation or delirium Heparin Sodium (Porcine) (Heparin Vial(*)) 5,000 units SUBCUT Q12HR [facility] Last Admin: 08/01/18 22:25 Dose: 5,000 units Azithromycin (Zithromax 500 Mg/250 Ml) 500 mg in 250 mls @ 250 mls/hr IVPB Q24H [facility] Last Admin: 08/01/18 20:45 Dose: 250 mls/hr Ceftriaxone Sodium 1 gm/ (Sodium Chloride) 50 mls @ 200 mls/hr IVPB Q24H [facility] Last Admin: 08/01/18 22:22 Dose: 200 mls/hr Magnesium Sulfate (Magnesium Sulfate 2 Gm Iv*) 2 gm in 50 mls @ 50 mls/hr IVPB ONCE ONE Stop: 08/02/18 08:33 Levothyroxine Sodium (Synthroid Tab*) 25 mcg PO QAM [facility] Last Admin: 08/01/18 08:40 Dose: 25 mcg Methylprednisolone Sodium Succinate (Solu-Medrol 40 Mg) 40 mg IV Q12H [facility] Last Admin: 08/02/18 04:35 Dose: 40 mg Metoprolol Tartrate (Lopressor Tab*) 25 mg PO BID [facility] Last Admin: 08/01/18 22:23 Dose: Not Given Mirtazapine (Remeron Tab*) 7.5 mg PO QAM [facility] Last Admin: 08/01/18 08:31 Dose: 7.5 mg Mirtazapine (Remeron Tab*) 15 mg PO BEDTIME [facility] Last Admin: 08/01/18 22:23 Dose: Not Given Morphine Sulfate (Morphine Inj (Syringe))*) 1 mg IV ONCE PRN PRN Reason: PAIN Morphine Sulfate (Morphine 4 Mg/Ml Vial (1 Ml)) 1 mg IV Q4H PRN PRN Reason: Severe Pain/RR>25 Last Admin: 08/02/18 06:54 Dose: 1 mg Multivitamins/Minerals (Theragran/Minerals Tab*) 1 tab PO DAILY [facility] Last Admin: 08/01/18 09:03 Dose: Not Given Nicotine (Nicotine Patch 21 Mg/24 Hr*) 1 patch TRANSDERM DAILY@0800 [facility] Last Admin: 08/01/18 08:38 Dose: 1 patch Nicotine Polacrilex (Nicotine Gum*) 2 mg PO Q2H PRN PRN Reason: CRAVING Nicotine Polacrilex (Nicotine Lozenge Mini) 4 mg MT Q2H PRN PRN Reason: CRAVINGS Pantoprazole Sodium (Protonix Tab*) 40 mg PO DAILY [facility] Last Admin: 08/01/18 08:40 Dose: 40 mg Pharmacy Profile Note (Nicotine Patch Removal Note*) 1 note FOLLOW UP 2100 [facility] Last Admin: 08/01/18 22:22 Dose: 1 note Prochlorperazine Edisylate (Compazine Inj*) 5 mg IV Q6H PRN PRN Reason: NAUSEA/VOMITING Umeclidinium [place] (Incruse Ellipta Mdi (Nf)) 1 inh INH DAILY [facility] Last Admin: 08/02/18 07:26 Dose: Not Given Vital Signs - 8 hr 08/02/18 08/02/18 08/02/18 01:00 02:00 02:01 Temperature 98.8 F 98.8 F 98.8 F Pulse Rate 90 101 101 Respiratory 10 25 21 Rate Blood Pressure 110/46 164/75 (mmHg) O2 Sat by Pulse 100 99 98 Oximetry 08/02/18 08/02/18 08/02/18 03:00 03:01 03:10 Temperature 99.0 F 99.0 F Pulse Rate 104 99 104 Respiratory 18 18 18 Rate Blood Pressure 145/59 (mmHg) O2 Sat by Pulse 99 99 98 Oximetry 08/02/18 08/02/18 08/02/18 03:57 04:00 04:01 Temperature 98.8 F 98.6 F Pulse Rate 109 108 Respiratory 22 21 19 Rate Blood Pressure 155/65 (mmHg) O2 Sat by Pulse 96 96 Oximetry 08/02/18 08/02/18 08/02/18 05:00 05:04 05:12 Temperature 98.6 F 98.6 F 98.6 F Pulse Rate 110 111 112 Respiratory 31 35 23 Rate Blood Pressure 157/69 (mmHg) O2 Sat by Pulse 86 91 96 Oximetry 08/02/18 08/02/18 08/02/18 06:00 06:54 07:18 Temperature 98.4 F Pulse Rate 111 115 Respiratory 23 30 18 Rate Blood Pressure 159/67 (mmHg) O2 Sat by Pulse 100 100 Oximetry Oxygen Devices in Use Now: Nasal Cannula Appearance: Elderly lady lying in bed in NAD. Eyes: No Scleral Icterus Ears/Nose/Mouth/Throat: Mucous Membranes Moist Neck: Trachea Midline Respiratory: Symmetrical Chest Expansion and Respiratory Effort, - - BS+ bilaterally with scattered wheeze Cardiovascular: RRR - Normal S1 and S2 Abdominal: NL Sounds; No Tenderness; No Distention Extremities: No Edema Neurological: - - AAOx2 (self and place), MEDINA Result Diagrams: 08/02/18 05:21 08/02/18 05:21 Microbiology and Other Data: Microbiology 07/30/18 18:47 Legionella Urinary Antigen - Final Urine Negative Legionella Antigen Streptococcus pneumoniae Ag Screen - Final Negative S. pneumo Antigen Assess/Plan/Problems-Billing Assessment: Mrs Walker is an 83yo F with PMH of COPD, CAD, IBS, breast CA, anxiety, hemolytic anemia, chronic pain, HTN, HLD, , GERD, DVT; who presented to ED with c/o dyspnea, found to have COPD exacerbation secondary to pneumonia. - Patient Problems (1) Sepsis Comment: - Met sepsis criteria on admission with leukocytosis and tachypnea. - Source is pneumonia. (2) Acute hypoxemic respiratory failure Comment: - Acute hypoxemic and hypercapnic respiratory failure. - Critical care consult appreciated. - She responded well to BiPAP, but states it is very uncomfortable and she'll "never wear it again". We talked about her condition yesterday; her CO2 was elevated and caused her lethary; she improved because of BiPAP, otherwise she would probably have with no intervention. She tells me she's ready for " God to take me". - We updated her MOLST form to reflect her wishes: DNR/DNI, no BiPAP. - Will transfer to medical floor and continue medical management. If her condition declines again, would transition to comfort care measures. (3) COPD exacerbation Comment: - Continue bronchodilators. - Patient states she had chest pain and swelling with steroids in the past, but is tolerating Solumedrol with no issues. - Continue low dose Morphine for air hunger and monitor. (4) Pneumonia Comment: - Continue Ceftriaxone and Zithromax. (5) Anxiety Comment: - As per PCP, patient has confusion with benzos - continue to monitor. - Morphine may help with her air hunger and anxiety. (6) Tobacco abuse Comment: - She continues to smoke >20 cigarrettes a day. (7) DVT prophylaxis Comment: - SQ heparin. (8) DNR (do not resuscitate) Status and Disposition: Inpatient. Daughter called and I left a message asking her to call me back. Overall prognosis is poor.
[2018-08-02] MEDS: Nicotine PATCH 21 MG/24 HR* PATCH TRANSDERM SCH (08:33)
[2018-08-02] MEDS: Cyanocobalamin TAB* 500 MCG PO SCH (08:35)
[2018-08-02] MEDS ORDERED: Magnesium Sulfate IV* 2 GM in NS 0.9% 100 ML* 100 ML IV ONE (08:35)
[2018-08-02] MEDS: Levothyroxine TAB* 25 MCG TAB PO SCH (08:35)
[2018-08-02] MEDS: Metoprolol Tartrate TAB* 25 MG PO SCH ×2 (08:35→21:13)
[2018-08-02] MEDS: Aspirin EC TAB* 81 MG TAB.EC PO SCH (08:36)
[2018-08-02] MEDS: Pantoprazole TAB * 40 MG TAB PO SCH (08:36)
[2018-08-02] MEDS: amLODIPine TAB* 5 MG PO SCH (08:36)
[2018-08-02] MEDS: Folic Acid TAB* 1 MG PO SCH (08:36)
[2018-08-02] MEDS: Gabapentin CAP(*) 300 MG PO SCH ×3 (08:36→21:13)
[2018-08-02] MEDS: Docusate CAP* 100 MG PO SCH ×2 (08:36→21:12)
[2018-08-02] MEDS: Multivitamins/Minerals TAB PO SCH (08:36)
[2018-08-02] MEDS: guaiFENesin ER TAB 600 MG PO SCH ×2 (08:36→21:12)
[2018-08-02] MEDS: Heparin VIAL(*) 5000 UNITS/ML VIAL (FIVE THOUSAND) SUBCUT SCH ×2 (08:36→21:16)
[2018-08-02] MEDS: Mirtazapine TAB* 15 MG PO SCH ×2 (08:36→21:13)
[2018-08-02] MEDS: celeCOXIB CAP* 200 MG PO SCH (08:36)
[2018-08-02] MEDS: Fluticasone NASAL SPRAY 50MCG* 16 gm SPRAY BTL BOTH NARES SCH (08:37)
--- NOTE | 2018-08-02 11:09 | PN ---
Progress Note - Progress Note Date of Service: 08/02/18 Note: Progress Note -- Critical Care 24 hour events -on NIV overngiht; then this morning more awake/alert, speaking clearly; refusing further NIV and states she doesnt want it anymore. She clearly states to Dr Sy she wants to if she is -she states she feels not so good -denies cp/n/v/abd pain. no cough/sputum. no fever/chills -no family at bedside this morning -ABGs improving yesterday evening -currently on NC 3-4 L, afebrile, tachycardic 100s, RR 20-30s Tele: sinus tachycardia Vitals: Vital Signs Temp 98.8 F 08/02/18 09:00 Pulse 101 08/02/18 09:00 Resp 20 08/02/18 09:00 BP 143/66 08/02/18 09:00 Pulse Ox 94 08/02/18 09:00 Intake & Output 08/01/18 08/02/18 08/02/18 18:59 06:59 18:59 Intake Total 990 344 200 Output Total 300 925 Balance 690 -581 200 Weight 53.7 kg Intake: IV Fluids 990 34 NS (0.9%) 34 Medicated IV 310 azithromycin 260 ceftriaxone 50 Oral 0 200 Output: Rodriguez 300 925 O2/Vent: NC 4 L Infusions: heplock Current Medications: Hydrocodone Bitart/Acetaminophen ([place] 10/325 (Nf)) 1 tab PO Q6H PRN PRN Reason: PAIN Albuterol (Ventolin Hfa Inhaler*) 2 puff INH Q4H PRN PRN Reason: SOB/WHEEZING Albuterol/Ipratropium (Duoneb (Albuterol 2.5 Mg/Ipratropium 0.5 Mg)) 1 neb INH [id number] AWAKE [facility] Amlodipine Besylate (Norvasc Tab*) 10 mg PO DAILY [facility] Last Admin: 08/02/18 08:36 Dose: 10 mg Aspirin (Aspirin Ec Tab*) 81 mg PO DAILY [facility] Last Admin: 08/02/18 08:36 Dose: 81 mg Atorvastatin Calcium (Lipitor*) 80 mg PO BEDTIME [facility] Last Admin: 08/01/18 22:20 Dose: Not Given Celecoxib (Celebrex Cap*) 200 mg PO QAM [facility] Last Admin: 08/02/18 08:36 Dose: 200 mg Cyanocobalamin (Vitamin B12 Tab*) 500 mcg PO DAILY [facility] Last Admin: 08/02/18 08:35 Dose: 500 mcg Docusate Sodium (Colace Cap*) 100 mg PO BID [facility] Last Admin: 08/02/18 08:36 Dose: 100 mg Fluticasone Propionate (Flonase Nasal [place] 50mcg*) 2 spray BOTH NARES DAILY [facility] Last Admin: 08/02/18 08:37 Dose: 2 spray Folic Acid (Folvite Tab*) 1 mg PO DAILY [facility] Last Admin: 08/02/18 08:36 Dose: 1 mg Gabapentin (Neurontin Cap(*)) 600 mg PO TID [facility] Last Admin: 08/02/18 08:36 Dose: 600 mg Guaifenesin (Mucinex*) 600 mg PO BID [facility] Last Admin: 08/02/18 08:36 Dose: 600 mg Haloperidol Lactate (Haldol Inj Iv/Im*) 5 mg IV SLOW PU Q4H PRN PRN Reason: Agitation or delirium Heparin Sodium (Porcine) (Heparin Vial(*)) 5,000 units SUBCUT Q12HR [facility] Last Admin: 08/02/18 08:36 Dose: 5,000 units Azithromycin (Zithromax 500 Mg/250 Ml) 500 mg in 250 mls @ 250 mls/hr IVPB Q24H [facility] Last Admin: 08/01/18 20:45 Dose: 250 mls/hr Ceftriaxone Sodium 1 gm/ (Sodium Chloride) 50 mls @ 200 mls/hr IVPB Q24H [facility] Last Admin: 08/01/18 22:22 Dose: 200 mls/hr Levothyroxine Sodium (Synthroid Tab*) 25 mcg PO QAM [facility] Last Admin: 08/02/18 08:35 Dose: 25 mcg Methylprednisolone Sodium Succinate (Solu-Medrol 40 Mg) 40 mg IV Q12H [facility] Last Admin: 08/02/18 04:35 Dose: 40 mg Metoprolol Tartrate (Lopressor Tab*) 25 mg PO BID [facility] Last Admin: 08/02/18 08:35 Dose: 25 mg Mirtazapine (Remeron Tab*) 7.5 mg PO QAM [facility] Last Admin: 08/02/18 08:36 Dose: 7.5 mg Mirtazapine (Remeron Tab*) 15 mg PO BEDTIME [facility] Last Admin: 08/01/18 22:23 Dose: Not Given Morphine Sulfate (Morphine Inj (Syringe))*) 1 mg IV ONCE PRN PRN Reason: PAIN Morphine Sulfate (Morphine 4 Mg/Ml Vial (1 Ml)) 1 mg IV Q4H PRN PRN Reason: Severe Pain/RR>25 Last Admin: 08/02/18 06:54 Dose: 1 mg Multivitamins/Minerals (Theragran/Minerals Tab*) 1 tab PO DAILY [facility] Last Admin: 08/02/18 08:36 Dose: Not Given Nicotine (Nicotine Patch 21 Mg/24 Hr*) 1 patch TRANSDERM DAILY@0800 [facility] Last Admin: 08/02/18 08:33 Dose: 1 patch Nicotine Polacrilex (Nicotine Gum*) 2 mg PO Q2H PRN PRN Reason: CRAVING Nicotine Polacrilex (Nicotine Lozenge Mini) 4 mg MT Q2H PRN PRN Reason: CRAVINGS Pantoprazole Sodium (Protonix Tab*) 40 mg PO DAILY [facility] Last Admin: 08/02/18 08:36 Dose: 40 mg Pharmacy Profile Note (Nicotine Patch Removal Note*) 1 note FOLLOW UP 2100 [facility] Last Admin: 08/01/18 22:22 Dose: 1 note Prochlorperazine Edisylate (Compazine Inj*) 5 mg IV Q6H PRN PRN Reason: NAUSEA/VOMITING Umeclidinium [place] (Incruse Ellipta Mdi (Nf)) 1 inh INH DAILY [facility] Last Admin: 08/02/18 07:26 Dose: Not Given Physical Exam: Constitutional: awake , alert, +resp distress, no diaphoresis Head: normocephalic, atraumatic Eyes: no pallor, no icterus ENT: moist mucous membranes Neck: soft, supple, no jvd, no stridor CVS: tachy, regular, + systolic murmur Resp: bilateral air entry, bilateral expiratory wheezing mild, rhales++, no acc muscle use Abdomen/GI: soft, nontender, nondistended, BS+ Ext/Msk: warm, pulses+, no edema Skin: intact, warm Neuro: awake , alert, orientedx3, moving all extremities Labs: Laboratory Results - last 24 hr 05/14/19 05/14/19 05/14/19 13:20 15:30 18:05 WBC RBC Hgb Hct MCV MCH MCHC RDW Plt Count MPV Patient Temperature Not Reportable Not Reportable Not Reportable ABG pH 7.13 L* 7.13 L* 7.25 L ABG pH (Temp Correct) Not Reportable Not Reportable Not Reportable ABG pCO2 90 H* 85 H* 66 H ABG pCO2 (Temp Corrct Not Reportable Not Reportable Not Reportable ABG pO2 82 91 118 H ABG pO2 (Temp Correct Not Reportable Not Reportable Not Reportable ABG HCO3 23.5 22.5 24.9 ABG O2 Saturation 97.2 98.5 H 99.7 H ABG Base Excess -1.8 -3.1 L 0.0 Respiration Rate Not Reportable Not Reportable Not Reportable O2 Delivery Device nasal cannula 5lpm bipap bipap Ventilator Type Not Reportable Not Reportable Not Reportable Vent Mode Not Reportable Not Reportable Not Reportable FiO2 Not Reportable 60 60 Inspiratory Time Not Reportable Not Reportable Not Reportable PEEP Not Reportable Not Reportable Not Reportable Pressure Support Not Reportable Not Reportable Not Reportable Pressure Control Not Reportable Not Reportable Not Reportable EPAP Not Reportable Not Reportable Not Reportable IPAP Not Reportable Not Reportable Not Reportable BiPAP Not Reportable Not Reportable Not Reportable Sodium Potassium Chloride Carbon Dioxide Anion Gap BUN Creatinine Est GFR ( Amer) Est GFR (Non-Af Amer) BUN/Creatinine Ratio Glucose Calcium Phosphorus Magnesium Total Bilirubin Direct Bilirubin Indirect Bilirubin AST ALT Alkaline Phosphatase Total Creatine Kinase Total Protein Albumin Globulin Albumin/Globulin Ratio 08/01/18 08/01/18 08/02/18 19:35 21:25 05:21 WBC RBC Hgb Hct MCV MCH MCHC RDW Plt Count MPV Patient Temperature ABG pH 7.27 L ABG pH (Temp Correct) ABG pCO2 63 H ABG pCO2 (Temp Corrct ABG pO2 130 H ABG pO2 (Temp Correct ABG HCO3 25.3 ABG O2 Saturation 99.6 H ABG Base Excess 0.5 Respiration Rate O2 Delivery Device Ventilator Type Vent Mode FiO2 Inspiratory Time PEEP Pressure Support Pressure Control EPAP IPAP BiPAP Sodium 128 L 130 L Potassium 5.0 4.8 Chloride 98 L 96 L Carbon Dioxide 23 25 Anion Gap 7 9 BUN 18 20 Creatinine 0.76 0.82 Est GFR ( Amer) 87.7 80.4 Est GFR (Non-Af Amer) 72.5 66.4 BUN/Creatinine Ratio 23.7 H 24.4 H Glucose 128 H 142 H Calcium 8.4 L 9.0 Phosphorus 2.7 Magnesium 1.8 L Total Bilirubin 0.30 Direct Bilirubin 0.10 Indirect Bilirubin 0.2 L AST 35 ALT 25 Alkaline Phosphatase 163 H Total Creatine Kinase 220 Total Protein 6.3 L Albumin 3.5 Globulin 2.8 Albumin/Globulin Ratio 1.3 08/02/18 05:21 WBC 7.8 RBC 3.68 L Hgb 11.4 L Hct 34 L MCV 92 MCH 31 MCHC 34 RDW 16 H Plt Count 300 MPV 7.6 Patient Temperature ABG pH ABG pH (Temp Correct) ABG pCO2 ABG pCO2 (Temp Corrct ABG pO2 ABG pO2 (Temp Correct ABG HCO3 ABG O2 Saturation ABG Base Excess Respiration Rate O2 Delivery Device Ventilator Type Vent Mode FiO2 Inspiratory Time PEEP Pressure Support Pressure Control EPAP IPAP BiPAP Sodium Potassium Chloride Carbon Dioxide Anion Gap BUN Creatinine Est GFR ( Amer) Est GFR (Non-Af Amer) BUN/Creatinine Ratio Glucose Calcium Phosphorus Magnesium Total Bilirubin Direct Bilirubin Indirect Bilirubin AST ALT Alkaline Phosphatase Total Creatine Kinase Total Protein Albumin Globulin Albumin/Globulin Ratio Imaging: CXR 07/30 - hyperinfalted lungs; mild prominence in interstitial markings, possible CHF versus interstitial lung disease cxr 08/01 - bilateral increased pulm interstitial infiltrates , appears to be pulmonary congestion/edema CXR 08/02 - pulm congestion+ TTE 08/01 - LVEF 55%, severe , estimated YAN 0.7, mod-severe TR, mod MR, no effusion Assessment: 83y F w/pmhx of COPD, active smoker, moderate 2018 with mild-mod MR/TR, CAD, HTN, HLD, HTN, GERD, IBS, chronic pain, h/o breast Ca s/p mastectomy on left 1990s, hypothyroidism; recent hospitalization for COPD exaccerbation; she presented [place] [facility] [place] for respiratory distress, suspected COPD exaccerbation with soem increased interstitial markings, given steroids and nebulizers, also noted to have hyponatremia. Started on empiric CAP therapy also. She remained with mild tachypnea but today developed increasing tachypnea , had change in mental status, more lethargic. ABG performed demonstrating acute respiratory acidosis. She demonstrated diffuse wheezing. She was upgraded to ICU. -Acute COPD exaccerbation -Acute hypercapneic Respiratory failure -acute pulmonary edema -suspected acute decompensated LV diastolic heart failure from Severe -Hyponatremia likely from volume overload -Severe HTN Plan: Neuro- -delirium seems better today; likely was metabolic from hypercapnea/hypoxia and decompensated CHF -patient stated she wants no further measures in AM; made DNR/DNI as per hospitalist -pain control; on celecoxib, hydrocodone/acetaminophen; morphine prn for pain and resp distress -Delirium prec; avoid BDZ CVS- -BP stable; sinus tachy from chf/resp status -CXR 08/02 with pulm congestion -TTE 08/01 with severe , intact LV function, mod-severe TR, mod MR -suspect decompensated CHF frrom diastolic dysfxn and severe -cont IV diuretics -cont norvasc 10 -cont asa/statin -Cardiac Cath 2015 with mild-mod LAD and RCA disease; no intervention needed -Maintain MAP>65 Resp- -Acute hypercapnea; wheezing better; +congestion/rhales -CXR 08/02 with congestion -cont IV diuretics -cont steroids, can taper as congestion improved and wheezing resolves -solumedrol 40mg IV BID -bronchodilators q4h -low suspicion for pneumonia/infection; would prob d/c abx -Wean Fio2 to keep sat>92% -Bronchodilators PRN, Aspiration prec -DNR/DNI now; patient refusing further NIV ID- afebrile. wbc 14->13-8. -CXR 08/02 with congestion -legionella ag neg, str pneumo ag neg; blood cx neg x2 -Empiric CAP tx with CTX and Azithro (day#4); can probably d/c, low suspicion for infection GI- -swallow eval first; NPO for now -GI prophylaxis Renal- -Cr stable -making urine; rodriguez+ -CXR with congestion -cont IV diuretics, goal neg balance, can increase to BID if not negative -follow K and Mg levels; replete IV Mg 2gm -hyponatremia improving; likely was 2/2 to volume overload and CHF exaccerbation -strict I/O, replete to keep K>4, Mg>2 -rodriguez as indicated Heme- -hg stable, plt stable -cont ASA for CAD -DVT proph with heparin sq and SCD Endo- Maintain BG<200, insulin protocol as needed. Cotn synthroid. Musculsk- pressure ulcer prophylaxis. Bedrest. Wounds- none Nutrition- NPO today DVT prophylaxis: SCD, heparin sq GI prophylaxis: ppi Central Line: no Arterial Line: no Rodriguez Cathetor: yes 08/01 Disposition: discussed with Dr Sy; patient now DNR/DNI, going to comfort. no further NIV, maintain NC, prn morphine if needed. will not require ICU level of care now. CC will sign off, please call/reconsult if needed. Patient Clinical Status: guarded, critical; but DNR/DNI Code Status: DNR/DNI palliative care followup would be appreciated to set GOC and possible hospice Abrahan Bonilla MD Image Processing Engineer (Electronically Signed)
[2018-08-02] MEDS: Furosemide IV* 10 MG/ML VIAL (40 MG) IV SCH (11:16)
[2018-08-02] MEDS: Hydrocodone/Acetamin 10/325 1 TAB PO PRN ×2 (14:11→22:41)
[2018-08-02] MEDS: Azithromycin 500 mg/250 ml NS 500 MG/250 ML BAG IVPB SCH (20:59)
[2018-08-02] MEDS: Nicotine Patch Removal NOTE FOLLOW UP SCH (21:03)
[2018-08-02] MEDS: Atorvastatin* 80 MG TAB PO SCH (21:12)
[2018-08-02] MEDS: cefTRIAXone(*) 1 GM in NS 0.9% 50 ML* 50 ML IVPB SCH (22:42)
[2018-08-03] MEDS: Albuterol/Ipratropium NEB.SOL* Albuterol 2.5 MG/Ipratropium 0.5 MG 3 ML INH SCH ×4 (01:26→18:58)
[2018-08-03] MEDS: methylPREDNISolone SOD 40 MG* 1 ML VIAL IV SCH ×2 (04:04→16:21)
[2018-08-03 06:36] LABS: Hematocrit 34 % (35-47); Hemoglobin 11.6 g/dL (12.0-16.0); Mean Corpuscular HGB Conc 34 g/dL (31-36); Mean Corpuscular Hemoglobin 31 pg (27-31); Mean Corpuscular Volume 91 fL (80-97); Mean Platelet Volume 7.6 fL (7.4-10.4); Platelet Count 324 10^3/uL (150-450); Red Blood Count 3.73 10^6 /uL (3.70-4.87); Red Cell Distribution Width 16 % (10.5-15); White Blood Count 9.3 10^3/uL (3.5-10.8)
[2018-08-03 06:53] LABS: Albumin 3.5 g/dL (3.2-5.2); Albumin/Globulin Ratio 1.3 (1-3); BUN/Creatinine Ratio 26.7 (8-20); Calcium 9.1 mg/dL (8.6-10.3); EGFR African American 76.1 (>60); EGFR Non-African American 62.9 (>60); Globulin 2.8 g/dL (2-4); Indirect Bilirubin 0.2 mg/dL (0.3-1.0); Magnesium 2.4 mg/dL (1.9-2.7); Phosphorus 2.2 mg/dL (2.5-5.0); Potassium 4.9 mmol/L (3.5-5.0); Total Bilirubin 0.3 mg/dL (0.2-1.0); Total Protein 6.3 g/dL (6.4-8.9)
[2018-08-03] MEDS: Umeclidinium 62.5 MDI(NF) MDI INH SCH (07:49)
[2018-08-03] MEDS: Nicotine PATCH 21 MG/24 HR* PATCH TRANSDERM SCH (09:18)
[2018-08-03] MEDS: Furosemide IV* 10 MG/ML VIAL (40 MG) IV SCH (09:20)
[2018-08-03] MEDS: Gabapentin CAP(*) 300 MG PO SCH ×3 (09:20→20:41)
[2018-08-03] MEDS: Heparin VIAL(*) 5000 UNITS/ML VIAL (FIVE THOUSAND) SUBCUT SCH (09:20)
[2018-08-03] MEDS: Fluticasone NASAL SPRAY 50MCG* 16 gm SPRAY BTL BOTH NARES SCH (09:21)
[2018-08-03] MEDS: Aspirin EC TAB* 81 MG TAB.EC PO SCH (09:23)
[2018-08-03] MEDS: Multivitamins/Minerals TAB PO SCH ×2 (09:23→09:30)
[2018-08-03] MEDS: guaiFENesin ER TAB 600 MG PO SCH ×2 (09:24→20:41)
[2018-08-03] MEDS: celeCOXIB CAP* 200 MG PO SCH (09:24)
[2018-08-03] MEDS: Pantoprazole TAB * 40 MG TAB PO SCH (09:24)
[2018-08-03] MEDS: Docusate CAP* 100 MG PO SCH ×2 (09:24→20:41)
[2018-08-03] MEDS: Cyanocobalamin TAB* 500 MCG PO SCH ×2 (09:25→09:29)
[2018-08-03] MEDS: Levothyroxine TAB* 25 MCG TAB PO SCH (09:25)
[2018-08-03] MEDS: Metoprolol Tartrate TAB* 25 MG PO SCH ×2 (09:25→20:43)
[2018-08-03] MEDS: amLODIPine TAB* 5 MG PO SCH (09:25)
[2018-08-03] MEDS: Folic Acid TAB* 1 MG PO SCH ×2 (09:25→09:29)
[2018-08-03] MEDS: Mirtazapine TAB* 15 MG PO SCH ×2 (09:26→20:43)
[2018-08-03] MEDS: Morphine 4 MG/ML VIAL (1 ml) 4 MG/ML VIAL IV PRN ×4 (09:46→23:26)
--- NOTE | 2018-08-03 13:04 | PN ---
Progress Note - Progress Note Date of Service: 08/03/18 Note: Spoke with pt and daughter but separately. Pt thought she was going to with this last exacerbation going forward she doesn't want to be intubated or use BiPAP. Spoke with daughter Nanci who feels mother needs 24hr care but there is no one to provide it so she realizes pt will have to go to SNF. PT to evaulate pt today for possible rehab otherwise pt would need placement. [facility], mother had used [facility] in past but didn't like it. Also discussed pt's wishes for no intubartion or BiPAP with daughter so she is aware.
--- NOTE | 2018-08-03 13:42 | PN ---
Subjective Date of Service: 08/03/18 Interval History: HOSPITALIST PROGRESS NOTE Patient seen and examined at bedside. Care reviewed and d/w Alejandra Mcarthur RN. She is uncomfortable today. Dyspnea is still present, and she has an abdominal "ache". Family History: Unchanged from Admission Social History: Unchanged from Admission Past Medical History: Unchanged from Admission Objective Active Medications: Hydrocodone Bitart/Acetaminophen ([place] 10/325 (Nf)) 1 tab PO Q6H PRN PRN Reason: PAIN Last Admin: 08/02/18 22:41 Dose: 1 tab Albuterol (Ventolin Hfa Inhaler*) 2 puff INH Q4H PRN PRN Reason: SOB/WHEEZING Albuterol/Ipratropium (Duoneb (Albuterol 2.5 Mg/Ipratropium 0.5 Mg)) 1 neb INH [id number] AWAKE [facility] Last Admin: 08/03/18 07:02 Dose: 1 neb Amlodipine Besylate (Norvasc Tab*) 10 mg PO DAILY [facility] Last Admin: 08/03/18 09:25 Dose: 10 mg Aspirin (Aspirin Ec Tab*) 81 mg PO DAILY [facility] Last Admin: 08/03/18 09:23 Dose: 81 mg Atorvastatin Calcium (Lipitor*) 80 mg PO BEDTIME [facility] Last Admin: 08/02/18 21:12 Dose: 80 mg Celecoxib (Celebrex Cap*) 200 mg PO QAM [facility] Last Admin: 08/03/18 09:24 Dose: 200 mg Docusate Sodium (Colace Cap*) 100 mg PO BID [facility] Last Admin: 08/03/18 09:24 Dose: 100 mg Fluticasone Propionate (Flonase Nasal [place] 50mcg*) 2 spray BOTH NARES DAILY [facility] Last Admin: 08/03/18 09:21 Dose: 2 spray Gabapentin (Neurontin Cap(*)) 600 mg PO TID [facility] Last Admin: 08/03/18 09:20 Dose: 600 mg Guaifenesin (Mucinex*) 600 mg PO BID [facility] Last Admin: 08/03/18 09:24 Dose: 600 mg Azithromycin (Zithromax 500 Mg/250 Ml) 500 mg in 250 mls @ 250 mls/hr IVPB Q24H [facility] Stop: 08/03/18 23:59 Last Admin: 05/15/19 20:59 Dose: 250 mls/hr Ceftriaxone Sodium 1 gm/ (Sodium Chloride) 50 mls @ 200 mls/hr IVPB Q24H [facility] Last Admin: 08/02/18 22:42 Dose: 200 mls/hr Levothyroxine Sodium (Synthroid Tab*) 25 mcg PO 0600 [facility] Methylprednisolone Sodium Succinate (Solu-Medrol 40 Mg) 40 mg IV Q12H [facility] Last Admin: 08/03/18 04:04 Dose: 40 mg Metoprolol Tartrate (Lopressor Tab*) 25 mg PO BID [facility] Last Admin: 08/03/18 09:25 Dose: 25 mg Mirtazapine (Remeron Tab*) 7.5 mg PO QAM [facility] Last Admin: 08/03/18 09:26 Dose: 7.5 mg Mirtazapine (Remeron Tab*) 15 mg PO BEDTIME [facility] Last Admin: 08/02/18 21:13 Dose: 15 mg Morphine Sulfate (Morphine 4 Mg/Ml Vial (1 Ml)) 1 mg IV Q2H PRN PRN Reason: Severe Pain/RR>25 Last Admin: 08/03/18 09:46 Dose: 1 mg Nicotine (Nicotine Patch 21 Mg/24 Hr*) 1 patch TRANSDERM DAILY@0800 [facility] Last Admin: 08/03/18 09:18 Dose: 1 patch Nicotine Polacrilex (Nicotine Gum*) 2 mg PO Q2H PRN PRN Reason: CRAVING Nicotine Polacrilex (Nicotine Lozenge Mini) 4 mg MT Q2H PRN PRN Reason: CRAVINGS Pantoprazole Sodium (Protonix Tab*) 40 mg PO DAILY [facility] Last Admin: 08/03/18 09:24 Dose: 40 mg Pharmacy Profile Note (Nicotine Patch Removal Note*) 1 note FOLLOW UP 2100 [facility] Last Admin: 08/02/18 21:03 Dose: 1 note Prochlorperazine Edisylate (Compazine Inj*) 5 mg IV Q6H PRN PRN Reason: NAUSEA/VOMITING Umeclidinium [place] (Incruse Ellipta Mdi (Nf)) 1 inh INH DAILY [facility] Last Admin: 08/03/18 07:49 Dose: Not Given Vital Signs - 8 hr 08/03/18 08/03/18 08/03/18 07:02 08:00 09:20 Pulse Rate 100 Respiratory 14 19 19 Rate Blood Pressure (mmHg) O2 Sat by Pulse 94 Oximetry 08/03/18 08/03/18 08/03/18 09:46 10:46 11:40 Pulse Rate 79 Respiratory 19 17 17 Rate Blood Pressure 117/51 (mmHg) O2 Sat by Pulse 99 Oximetry Oxygen Devices in Use Now: Nasal Cannula Appearance: Elderly lady sitting up in bed in mild respiratory distress Eyes: No Scleral Icterus Ears/Nose/Mouth/Throat: Mucous Membranes Moist Neck: Trachea Midline Respiratory: Symmetrical Chest Expansion and Respiratory Effort, - - BS+ bilaterally, scattered wheeze Cardiovascular: RRR - Normal S1 and S2 Neurological: Alert and Oriented x 3, NL Muscle Strength and Tone Result Diagrams: 08/03/18 06:20 08/03/18 06:20 Microbiology and Other Data: Microbiology 07/30/18 18:47 Legionella Urinary Antigen - Final Urine Negative Legionella Antigen Streptococcus pneumoniae Ag Screen - Final Negative S. pneumo Antigen Assess/Plan/Problems-Billing Assessment: Mrs Walker is an 83yo F with PMH of COPD, CAD, IBS, breast CA, anxiety, hemolytic anemia, chronic pain, HTN, HLD, , GERD, DVT; who presented to ED with c/o dyspnea, found to have COPD exacerbation secondary to pneumonia. - Patient Problems (1) Sepsis Comment: - Met sepsis criteria on admission with leukocytosis and tachypnea. - Source is pneumonia. (2) Acute hypoxemic respiratory failure Comment: - Acute hypoxemic and hypercapnic respiratory failure. - Critical care consult appreciated. - She responded well to BiPAP, but states it is very uncomfortable and she'll "never wear it again". We talked about her condition yesterday; her CO2 was elevated and caused her lethargy; she improved because of BiPAP, otherwise she would probably have with no intervention. She tells me she's ready for " God to take me". - We updated her MOLST form to reflect her wishes: DNR/DNI, no BiPAP. - Continue medical management. If she improves, will likely need SNF. If her condition declines again, would transition to comfort care measures. (3) COPD exacerbation Comment: - Continue bronchodilators. - Patient states she had chest pain and swelling with steroids in the past, but is tolerating Solumedrol with no issues. - Continue low dose Morphine for air hunger and monitor. (4) Pneumonia Comment: - Continue Ceftriaxone and Zithromax. (5) Anxiety Comment: - As per PCP, patient has confusion with benzos - continue to monitor. - Morphine is helping with her air hunger and anxiety. (6) Tobacco abuse Comment: - She continues to smoke >20 cigarrettes a day. (7) DVT prophylaxis Comment: - SQ heparin. (8) DNR (do not resuscitate) Status and Disposition: Inpatient. Daughter updated at bedside.
[2018-08-03] MEDS: Azithromycin 500 mg/250 ml NS 500 MG/250 ML BAG IVPB SCH (20:26)
[2018-08-03] MEDS: Atorvastatin* 80 MG TAB PO SCH (20:42)
[2018-08-03] MEDS: Nicotine Patch Removal NOTE FOLLOW UP SCH (21:39)
[2018-08-03] MEDS: cefTRIAXone(*) 1 GM in NS 0.9% 50 ML* 50 ML IVPB SCH (21:46)
[2018-08-04] MEDS: Albuterol/Ipratropium NEB.SOL* Albuterol 2.5 MG/Ipratropium 0.5 MG 3 ML INH SCH ×4 (01:45→19:28)
[2018-08-04] MEDS: Levothyroxine TAB* 25 MCG TAB PO SCH (05:07)
[2018-08-04] MEDS: methylPREDNISolone SOD 40 MG* 1 ML VIAL IV SCH ×2 (05:07→15:15)
[2018-08-04] MEDS: Morphine 4 MG/ML VIAL (1 ml) 4 MG/ML VIAL IV PRN ×2 (05:28→09:52)
[2018-08-04] MEDS: Umeclidinium 62.5 MDI(NF) MDI INH SCH (07:33)
[2018-08-04 08:15] LABS: ABS Lymphocytes 0.7 10^3/ul (1.0-4.8); ABS Monocytes 0.4 10^3/ul (0-0.8); ABS Neutrophils 8.9 10^3/ul (1.5-7.7); Hematocrit 36 % (35-47); Hemoglobin 12.1 g/dL (12.0-16.0); Lymphocyte % 6.7 %; Mean Corpuscular HGB Conc 34 g/dL (31-36); Mean Corpuscular Hemoglobin 31 pg (27-31); Mean Corpuscular Volume 93 fL (80-97); Mean Platelet Volume 7.4 fL (7.4-10.4); Nucleated Red Blood Cells % 0.3; Platelet Count 338 10^3/uL (150-450); Red Blood Count 3.89 10^6 /uL (3.70-4.87); Red Cell Distribution Width 17 % (10.5-15); White Blood Count 9.9 10^3/uL (3.5-10.8)
[2018-08-04 08:28] LABS: BUN/Creatinine Ratio 27.5 (8-20); C Reactive Protein 9.43 mg/L (<8.01); Calcium 9.4 mg/dL (8.6-10.3); EGFR African American 82.7 (>60); EGFR Non-African American 68.3 (>60); Potassium 4.7 mmol/L (3.5-5.0)
[2018-08-04] MEDS: amLODIPine TAB* 5 MG PO SCH (09:34)
[2018-08-04] MEDS: Pantoprazole TAB * 40 MG TAB PO SCH (09:34)
[2018-08-04] MEDS: Docusate CAP* 100 MG PO SCH ×2 (09:35→20:52)
[2018-08-04] MEDS: Mirtazapine TAB* 15 MG PO SCH ×2 (09:35→20:52)
[2018-08-04] MEDS: Fluticasone NASAL SPRAY 50MCG* 16 gm SPRAY BTL BOTH NARES SCH (09:35)
[2018-08-04] MEDS: Nicotine PATCH 21 MG/24 HR* PATCH TRANSDERM SCH (09:35)
[2018-08-04] MEDS: Aspirin EC TAB* 81 MG TAB.EC PO SCH (09:35)
[2018-08-04] MEDS: guaiFENesin ER TAB 600 MG PO SCH ×2 (09:35→20:52)
[2018-08-04] MEDS: Metoprolol Tartrate TAB* 25 MG PO SCH ×2 (09:35→20:52)
[2018-08-04] MEDS: Gabapentin CAP(*) 300 MG PO SCH ×3 (09:37→20:52)
[2018-08-04] MEDS: celeCOXIB CAP* 200 MG PO SCH (09:39)
--- NOTE | 2018-08-04 11:31 | PN ---
Subjective Date of Service: 08/04/18 Interval History: Did not sleep well. Denies cough, chest pain, fevers. Some chronic abdominal pain to palpation No acute events overnight. Afebrile. On 4L still. BNP up to >1300 from 639 on admission, CRP down to 9 from 39. Most worried about her malfunctioning TV (which has now been fixed. Family History: Unchanged from Admission Social History: Unchanged from Admission Past Medical History: Unchanged from Admission Objective Active Medications: Hydrocodone Bitart/Acetaminophen ([place] 10/325 (Nf)) 1 tab PO Q6H PRN PRN Reason: PAIN Last Admin: 08/02/18 22:41 Dose: 1 tab Albuterol (Ventolin Hfa Inhaler*) 2 puff INH Q4H PRN PRN Reason: SOB/WHEEZING Albuterol/Ipratropium (Duoneb (Albuterol 2.5 Mg/Ipratropium 0.5 Mg)) 1 neb INH [id number] AWAKE [facility] Last Admin: 08/04/18 07:12 Dose: 1 neb Amlodipine Besylate (Norvasc Tab*) 10 mg PO DAILY [facility] Last Admin: 08/04/18 09:34 Dose: 10 mg Aspirin (Aspirin Ec Tab*) 81 mg PO DAILY [facility] Last Admin: 08/04/18 09:35 Dose: 81 mg Atorvastatin Calcium (Lipitor*) 80 mg PO BEDTIME [facility] Last Admin: 08/03/18 20:42 Dose: 80 mg Celecoxib (Celebrex Cap*) 200 mg PO QAM [facility] Last Admin: 08/04/18 09:39 Dose: 200 mg Docusate Sodium (Colace Cap*) 100 mg PO BID [facility] Last Admin: 08/04/18 09:35 Dose: 100 mg Fluticasone Propionate (Flonase Nasal [place] 50mcg*) 2 spray BOTH NARES DAILY [facility] Last Admin: 08/04/18 09:35 Dose: 2 spray Furosemide (Lasix Iv*) 40 mg IV 0800,2000 [facility] Gabapentin (Neurontin Cap(*)) 600 mg PO TID [facility] Last Admin: 08/04/18 09:37 Dose: 600 mg Guaifenesin (Mucinex*) 600 mg PO BID [facility] Last Admin: 08/04/18 09:35 Dose: 600 mg Ceftriaxone Sodium 1 gm/ (Sodium Chloride) 50 mls @ 200 mls/hr IVPB Q24H [facility] Last Admin: 08/03/18 21:46 Dose: 200 mls/hr Levothyroxine Sodium (Synthroid Tab*) 25 mcg PO 0600 [facility] Last Admin: 08/04/18 05:07 Dose: 25 mcg Methylprednisolone Sodium Succinate (Solu-Medrol 40 Mg) 40 mg IV Q12H [facility] Last Admin: 08/04/18 05:07 Dose: 40 mg Metoprolol Tartrate (Lopressor Tab*) 25 mg PO BID [facility] Last Admin: 08/04/18 09:35 Dose: 25 mg Mirtazapine (Remeron Tab*) 7.5 mg PO QAM [facility] Last Admin: 08/04/18 09:35 Dose: 7.5 mg Mirtazapine (Remeron Tab*) 15 mg PO BEDTIME [facility] Last Admin: 08/03/18 20:43 Dose: 15 mg Morphine Sulfate (Morphine 4 Mg/Ml Vial (1 Ml)) 1 mg IV Q2H PRN PRN Reason: Severe Pain/RR>25 Last Admin: 08/04/18 09:52 Dose: 1 mg Nicotine (Nicotine Patch 21 Mg/24 Hr*) 1 patch TRANSDERM DAILY@0800 [facility] Last Admin: 08/04/18 09:35 Dose: 1 patch Nicotine Polacrilex (Nicotine Gum*) 2 mg PO Q2H PRN PRN Reason: CRAVING Nicotine Polacrilex (Nicotine Lozenge Mini) 4 mg MT Q2H PRN PRN Reason: CRAVINGS Pantoprazole Sodium (Protonix Tab*) 40 mg PO DAILY [facility] Last Admin: 08/04/18 09:34 Dose: 40 mg Pharmacy Profile Note (Nicotine Patch Removal Note*) 1 note FOLLOW UP 2100 [facility] Last Admin: 08/03/18 21:39 Dose: 1 note Prochlorperazine Edisylate (Compazine Inj*) 5 mg IV Q6H PRN PRN Reason: NAUSEA/VOMITING Umeclidinium [place] (Incruse Ellipta Mdi (Nf)) 1 inh INH DAILY [facility] Last Admin: 08/04/18 07:33 Dose: Not Given Vital Signs - 8 hr 08/04/18 08/04/18 08/04/18 05:28 07:16 07:32 Temperature 98.1 F Pulse Rate 107 92 Respiratory 18 20 16 Rate Blood Pressure 152/64 (mmHg) O2 Sat by Pulse 98 98 Oximetry 08/04/18 08/04/18 09:37 09:52 Temperature Pulse Rate Respiratory 22 22 Rate Blood Pressure (mmHg) O2 Sat by Pulse Oximetry Oxygen Devices in Use Now: Nasal Cannula Appearance: NAD, sitting on side of bed Eyes: No Scleral Icterus Ears/Nose/Mouth/Throat: NL Teeth, Lips, Gums Respiratory: - - rhonchi, no wheezing, reduced at left>right lung bases. Cardiovascular: NL Sounds; No Murmurs; No JVD, RRR, - - trace edema feet, MOLLY loudest LUSB Abdominal: - - LUQ TTP, no rebound or guarding. soft, nondistended. Extremities: No Edema Skin: No Rash or Ulcers Neurological: Alert and Oriented x 3, NL Sensation Nutrition: Taking PO's Result Diagrams: 08/04/18 08:03 08/04/18 08:03 Additional Lab and Data: Laboratory Results - last 24 hr 08/04/18 08/04/18 08/04/18 08:03 08:03 08:03 WBC 9.9 RBC 3.89 Hgb 12.1 Hct 36 MCV 93 MCH 31 MCHC 34 RDW 17 H Plt Count 338 MPV 7.4 Neut % (Auto) 89.1 Lymph % (Auto) 6.7 [place] % (Auto) 3.8 Eos % (Auto) 0.0 Baso % (Auto) 0.4 Absolute Neuts (auto) 8.9 H Absolute Lymphs (auto) 0.7 L Absolute Monos (auto) 0.4 Absolute Eos (auto) 0.0 Absolute Basos (auto) 0.0 Absolute Nucleated RBC 0.0 Nucleated RBC % 0.3 Sodium 135 Potassium 4.7 Chloride 98 L Carbon Dioxide 33 H Anion Gap 4 BUN 22 Creatinine 0.80 Est GFR ( Amer) 82.7 Est GFR (Non-Af Amer) 68.3 BUN/Creatinine Ratio 27.5 H Glucose 158 H Calcium 9.4 C-Reactive Protein 9.43 H B-Natriuretic Peptide > 1300 H Microbiology and Other Data: Microbiology 07/30/18 15:37 Blood Venous Aerobic Blood Culture - Final No Growth Day 5 07/30/18 15:37 Blood Venous Anaerobic Blood Culture - Final No Growth Day 07/30/18 15:37 Blood Venous Aerobic Blood Culture - Final No Growth Day 07/30/18 15:37 Blood Venous Anaerobic Blood Culture - Final No Growth Day 5 08/01/18 14:40 Nasal Nasal Screen MRSA (PCR) - Final Mrsa Not Detected 07/30/18 18:47 Urine Urine Culture - Final 07/30/18 18:47 Urine Legionella Urinary Antigen - Final Negative Legionella Antigen 07/30/18 18:47 Urine Streptococcus pneumoniae Ag Screen - Final Negative S. pneumo Antigen Assess/Plan/Problems-Billing Assessment: 83yo female PMH of COPD, current smoker of 50 years, CAD, IBS, breast CA, anxiety, hemolytic anemia, chronic pain, HTN, HLD, , GERD, DVT; who presented to ED with c/o dyspnea, cough productive of green sputum. Found to have acute hypoxic respiratory failure in setting of COPD and volume overload. Hyponatremic to 120 (resolved) - Patient Problems (1) Acute hypoxemic respiratory failure Current Visit: Yes Status: Acute Code(s): J96.01 - ACUTE RESPIRATORY FAILURE WITH HYPOXIA SNOMED Code(s): 907553805 Comment: - Acute hypoxemic and hypercapnic respiratory failure. - Initial CXR with increased interstital lung markings consistent with ILD, volume overload or pneumonititis. Was tx as most likely pneumonia - required rescue BiPAP but reportedly she'll "never wear it again". - code status updated 08/03 to DNR/DNI, no BiPAP. - Her BNP was elevated on admission and has increased further on recheck this AM (>1300 above upper limit). Got 20mg IV lasix yesterday. Start 40mg IV BID, strict io, daily weights. Get PA/LAT CXR in AM. Weaning O2 requirements today. (2) COPD exacerbation Current Visit: Yes Status: Acute Code(s): J44.1 - CHRONIC OBSTRUCTIVE PULMONARY DISEASE W (ACUTE) EXACERBATION SNOMED Code(s): 482454403 Comment: - Continue duoneb. Switch to Spiriva from nonformulary Inora Ellipta which she has not been getting since admission. Would like to add Dulera but need to clarify her unspecified allergy to Advair first - Solumedrol 40mg IV q12, not bronchospastic currently, switching to po prednisone 40mg tomorrow. - Continue low dose Morphine for air hunger and monitor. (3) Pneumonia Current Visit: Yes Status: Acute Code(s): J18.9 - PNEUMONIA, UNSPECIFIED ORGANISM SNOMED Code(s): 291648294 Comment: - not clearly pneumonia and negative cultures - This is 5th days of Ceftriaxone and Zithromax while inpatient. will stop. (4) Sepsis Current Visit: Yes Status: Acute Comment: - Met sepsis criteria on admission with leukocytosis and tachypnea. - Source is pneumonia. (5) Acute diastolic CHF (congestive heart failure) Current Visit: No Status: Acute Code(s): I50.31 - ACUTE DIASTOLIC ( CONGESTIVE) HEART FAILURE SNOMED Code(s): 469808179 Comment: BNP markedly elevated, seems orthopneic and CXR consistent with volume overload. lasix 40mg IV BID, strict io, daily weights, repeat XR PA/LAT tomorrow. (6) Aortic stenosis Current Visit: No Status: Acute Code(s): I35.0 - NONRHEUMATIC AORTIC (VALVE ) STENOSIS SNOMED Code(s): 28276888 Comment: mod according to Echo Status and Disposition: Inpatient. Needing diuresis given continued hypoxic respiratory failure. [facility] has offered a bed.
[2018-08-04] MEDS: Furosemide IV* 10 MG/ML VIAL (40 MG) IV SCH ×2 (13:45→20:10)
[2018-08-04] MEDS: Hydrocodone/Acetamin 10/325 1 TAB PO PRN ×2 (15:13→21:44)
[2018-08-04] MEDS: cefTRIAXone(*) 1 GM in NS 0.9% 50 ML* 50 ML IVPB SCH (20:50)
[2018-08-04] MEDS: Atorvastatin* 80 MG TAB PO SCH (20:52)
[2018-08-04] MEDS: Nicotine Patch Removal NOTE FOLLOW UP SCH (20:54)
[2018-08-05] MEDS: Albuterol/Ipratropium NEB.SOL* Albuterol 2.5 MG/Ipratropium 0.5 MG 3 ML INH SCH ×4 (01:00→19:15)
[2018-08-05] MEDS: Levothyroxine TAB* 25 MCG TAB PO SCH (05:31)
[2018-08-05] MEDS: Tiotropium CAP.INH* CAP.INH/18 MCG (USE ORDER SET !) INH SCH (07:31)
[2018-08-05] MEDS: Fluticasone NASAL SPRAY 50MCG* 16 gm SPRAY BTL BOTH NARES SCH (08:54)
[2018-08-05] MEDS: Furosemide IV* 10 MG/ML VIAL (40 MG) IV SCH ×2 (08:54→19:35)
[2018-08-05] MEDS: Nicotine PATCH 21 MG/24 HR* PATCH TRANSDERM SCH (08:55)
[2018-08-05] MEDS: amLODIPine TAB* 5 MG PO SCH (08:56)
[2018-08-05] MEDS: predniSONE TAB* 20 MG PO SCH ×3 (08:56→18:09)
[2018-08-05] MEDS: Metoprolol Tartrate TAB* 25 MG PO SCH ×2 (08:57→20:00)
[2018-08-05] MEDS: Pantoprazole TAB * 40 MG TAB PO SCH (08:57)
[2018-08-05] MEDS: Docusate CAP* 100 MG PO SCH ×2 (08:57→20:04)
[2018-08-05] MEDS: Aspirin EC TAB* 81 MG TAB.EC PO SCH (08:57)
[2018-08-05] MEDS: Hydrocodone/Acetamin 10/325 1 TAB PO PRN (08:57)
[2018-08-05] MEDS: guaiFENesin ER TAB 600 MG PO SCH ×2 (08:58→20:03)
[2018-08-05] MEDS: celeCOXIB CAP* 200 MG PO SCH (08:58)
[2018-08-05] MEDS: Gabapentin CAP(*) 300 MG PO SCH ×3 (08:58→20:03)
[2018-08-05] MEDS: Mirtazapine TAB* 15 MG PO SCH ×2 (08:58→20:05)
[2018-08-05] MEDS ORDERED: Spiriva Inhaler DEVICE* 1 EACH DEVICE INH ONE (09:00)
[2018-08-05] MEDS: Morphine 4 MG/ML VIAL (1 ml) 4 MG/ML VIAL IV PRN ×2 (14:39→18:16)
[2018-08-05] MEDS ORDERED: HYPROMELLOSE OPHTHALMIC PRN (15:27)
--- NOTE | 2018-08-05 17:08 | PN ---
Subjective Date of Service: 08/05/18 Interval History: Slept poorly, breathing still not great. Had been refusing switch to prednisone po (had been on solumedrol 40mg IV BID yesterday), not realizing she had been on steroids throughout hospital course. Not coughing. No chest pain. Chronic rib pains. Initially 3L at 98% was able to tolerate wean to room air (still 98-99%) but when she went to sleep she dropped to 79%. Put back on 2L. Repeat PA/LAT CXR with continued interstitial edema and small pleural effusions. net out 695cc. eyes dry wanting her eye gtts. mouth/throat dry, likely correlating with initiation of spiriva. says her "allergy" to Advair is that it makes her "tremble". Dulera ordered. Family History: Unchanged from Admission Social History: Unchanged from Admission Past Medical History: Unchanged from Admission Objective Active Medications: Hydrocodone Bitart/Acetaminophen ([place] 10/325 (Nf)) 1 tab PO Q6H PRN PRN Reason: PAIN Last Admin: 08/05/18 08:57 Dose: 1 tab Albuterol (Ventolin Hfa Inhaler*) 2 puff INH Q4H PRN PRN Reason: SOB/WHEEZING Albuterol/Ipratropium (Duoneb (Albuterol 2.5 Mg/Ipratropium 0.5 Mg)) 1 neb INH [id number] AWAKE [facility] Last Admin: 08/05/18 13:16 Dose: 1 neb Amlodipine Besylate (Norvasc Tab*) 10 mg PO DAILY [facility] Last Admin: 08/05/18 08:56 Dose: 10 mg Aspirin (Aspirin Ec Tab*) 81 mg PO DAILY [facility] Last Admin: 08/05/18 08:57 Dose: 81 mg Atorvastatin Calcium (Lipitor*) 80 mg PO BEDTIME [facility] Last Admin: 08/04/18 20:52 Dose: 80 mg Celecoxib (Celebrex Cap*) 200 mg PO QAM [facility] Last Admin: 08/05/18 08:58 Dose: 200 mg Docusate Sodium (Colace Cap*) 100 mg PO BID [facility] Last Admin: 08/05/18 08:57 Dose: 100 mg Fluticasone Propionate (Flonase Nasal [place] 50mcg*) 2 spray BOTH NARES DAILY [facility] Last Admin: 08/05/18 08:54 Dose: 2 spray Furosemide (Lasix Iv*) 40 mg IV 0800,1999 [facility] Last Admin: 08/05/18 08:54 Dose: 40 mg Gabapentin (Neurontin Cap(*)) 600 mg PO TID [facility] Last Admin: 08/05/18 14:33 Dose: 600 mg Guaifenesin (Mucinex*) 600 mg PO BID [facility] Last Admin: 08/05/18 08:58 Dose: 600 mg Levothyroxine Sodium (Synthroid Tab*) 25 mcg PO 0600 [facility] Last Admin: 08/05/18 05:31 Dose: 25 mcg Metoprolol Tartrate (Lopressor Tab*) 25 mg PO BID [facility] Last Admin: 08/05/18 08:57 Dose: 25 mg Mirtazapine (Remeron Tab*) 7.5 mg PO QAM [facility] Last Admin: 08/05/18 08:58 Dose: 7.5 mg Mirtazapine (Remeron Tab*) 15 mg PO BEDTIME [facility] Last Admin: 08/04/18 20:52 Dose: 15 mg Mometasone Furoate/Formoterol Fumar (Dulera 200/5 Mdi*) 2 puff INH BID [facility] Morphine Sulfate (Morphine 4 Mg/Ml Vial (1 Ml)) 1 mg IV Q2H PRN PRN Reason: Severe Pain/RR>25 Last Admin: 08/05/18 14:39 Dose: 1 mg Nicotine (Nicotine Patch 21 Mg/24 Hr*) 1 patch TRANSDERM DAILY@0800 [facility] Last Admin: 08/05/18 08:55 Dose: 1 patch Nicotine Polacrilex (Nicotine Gum*) 2 mg PO Q2H PRN PRN Reason: CRAVING Nicotine Polacrilex (Nicotine Lozenge Mini) 4 mg MT Q2H PRN PRN Reason: CRAVINGS Pantoprazole Sodium (Protonix Tab*) 40 mg PO DAILY [facility] Last Admin: 08/05/18 08:57 Dose: 40 mg Pharmacy Profile Note (Nicotine Patch Removal Note*) 1 note FOLLOW UP 2100 [facility] Last Admin: 08/04/18 20:54 Dose: 1 note Polyvinyl Alcohol (Polyvinyl Alcohol 1.4% Opth*) 1 drop BOTH EYES Q2H PRN PRN Reason: DRY EYE Prednisone (Deltasone Tab*) 40 mg PO DAILY [facility] Last Admin: 08/05/18 09:14 Dose: Not Given Prochlorperazine Edisylate (Compazine Inj*) 5 mg IV Q6H PRN PRN Reason: NAUSEA/VOMITING Tiotropium [place] (Spiriva Cap.Inh*) 1 cap INH DAILY [facility] Last Admin: 08/05/18 07:31 Dose: 1 cap Vital Signs - 8 hr 08/05/18 08/05/18 08/05/18 10:30 12:05 12:06 Temperature 96.6 F Pulse Rate 79 79 Respiratory 18 18 Rate Blood Pressure 136/56 136/56 (mmHg) O2 Sat by Pulse 99 79 79 Oximetry 08/05/18 08/05/18 08/05/18 12:14 13:17 14:33 Temperature Pulse Rate 80 Respiratory 18 18 Rate Blood Pressure (mmHg) O2 Sat by Pulse 94 98 Oximetry 08/05/18 08/05/18 14:39 16:24 Temperature 98.1 F Pulse Rate 79 Respiratory 18 22 Rate Blood Pressure 128/42 (mmHg) O2 Sat by Pulse 99 Oximetry Oxygen Devices in Use Now: Nasal Cannula Appearance: NAD, sitting on side of bed Eyes: No Scleral Icterus Ears/Nose/Mouth/Throat: NL Teeth, Lips, Gums Neck: NL Appearance and Movements; NL JVP, Trachea Midline Respiratory: - - decent air exchange but coarse rhonchi and wheezing on expiration in all lung louie. Cardiovascular: RRR, - - 2/6 MOLLY, RRR Extremities: - - trace edema in b/l LE Skin: No Rash or Ulcers Neurological: Alert and Oriented x 3, NL Muscle Strength and Tone Nutrition: Taking PO's Result Diagrams: 08/04/18 08:03 08/04/18 08:03 Microbiology and Other Data: Microbiology 07/30/18 15:37 Blood Venous Aerobic Blood Culture - Final No Growth Day 5 07/30/18 15:37 Blood Venous Anaerobic Blood Culture - Final No Growth Day 5 07/30/18 15:37 Blood Venous Aerobic Blood Culture - Final No Growth Day 5 07/30/18 15:37 Blood Venous Anaerobic Blood Culture - Final No Growth Day 5 08/01/18 14:40 Nasal Nasal Screen MRSA (PCR) - Final Mrsa Not Detected 07/30/18 18:47 Urine Urine Culture - Final 07/30/18 18:47 Urine Legionella Urinary Antigen - Final Negative Legionella Antigen 07/30/18 18:47 Urine Streptococcus pneumoniae Ag Screen - Final Negative S. pneumo Antigen Assess/Plan/Problems-Billing Assessment: 83yo female PMH of moderate COPD, current smoker 1.5ppd for 50 years, CAD (RCA 70% in 2016), IBS, breast CA, anxiety, AIHA s/p splenectomy, chronic pain, HTN, HLD, , GERD, DVT; who presented to ED with c/o several weeks of dyspnea and cough productive of green sputum. Found to have acute hypoxic respiratory failure in setting of suspected COPD exacerbation and evidence of volume overload. Hyponatremic to 120 (resolved) - Patient Problems (1) Acute hypoxemic respiratory failure Current Visit: Yes Status: Acute Code(s): J96.01 - ACUTE RESPIRATORY FAILURE WITH HYPOXIA SNOMED Code(s): 411681645 Comment: - Acute hypoxemic and hypercapnic respiratory failure. - Initial CXR with increased interstital lung markings consistent with ILD, volume overload or pneumonititis. Was tx as most likely pneumonia and is s/p antibiotic course with azithromycin and ceftriaxone. - required rescue BiPAP in ICU but reportedly she'll "never wear it again". - code status updated 08/03 to DNR/DNI, no BiPAP. - Her BNP was elevated on admission and has increased further on recheck 08/04 AM (>1300 above upper limit). Continue 40mg IV BID, strict io, daily weights. Goal net negative. PA/LAT CXR this AM still with interstital markings and small pleural effusions. Weaning O2 requirements as able. COPD changes as below If does not improve with additional diuresis and added COPD support then will need to rule out PE. (2) COPD exacerbation Current Visit: Yes Status: Acute Code(s): J44.1 - CHRONIC OBSTRUCTIVE PULMONARY DISEASE W (ACUTE) EXACERBATION SNOMED Code(s): 462965607 Comment: - Continue duoneb. Continue Spiriva from nonformulary and therefor not available Inora Ellipta which she had not been getting since admission. Trial adding Dulera as Advair "allergy" was "trembling" - She agrees to trial oral steroids with prednisone 40mg daily. s/p solumedrol. - Continue low dose Morphine for air hunger and monitor. - long conversation today that smoking cessation will be critical to keeping her out of the hospital going forward. (3) Pneumonia Current Visit: Yes Status: Acute Code(s): J18.9 - PNEUMONIA, UNSPECIFIED ORGANISM SNOMED Code(s): 617429248 Comment: - not clearly pneumonia and negative cultures - s/p 5 days of Ceftriaxone and Zithromax. (4) Sepsis Current Visit: Yes Status: Acute Comment: - Met SIRS criteria on admission with leukocytosis and tachypnea. Source was COPD exacerbation/difficult to exclude pneumonia. s/p 5 days abx - resolved. (5) Acute diastolic CHF (congestive heart failure) Current Visit: No Status: Acute Code(s): I50.31 - ACUTE DIASTOLIC ( CONGESTIVE) HEART FAILURE SNOMED Code(s): 277931127 Comment: BNP markedly elevated, seems orthopneic and CXR (repeat) consistent with volume overload. continue lasix 40mg IV BID, strict io, daily weights Grade III diastolic dysfunction on ECHO 06/08/18 (6) Aortic stenosis Current Visit: No Status: Acute Code(s): I35.0 - NONRHEUMATIC AORTIC (VALVE ) STENOSIS SNOMED Code(s): 54356896 Comment: moderate according to Echo 06/08/18 Status and Disposition: Inpatient. Needing diuresis given continued hypoxic respiratory failure. [facility] has offered a bed. She is more interested in [facility] which reportedly called her to offer her a bed yesterday as well.
[2018-08-05] MEDS: Artificial Tears* 15 ML BTL BOTH EYES PRN (18:10)
[2018-08-05] MEDS: Mometasone/Formoter 200/5 MDI INH SCH (19:15)
[2018-08-05] MEDS: Atorvastatin* 80 MG TAB PO SCH (20:03)
[2018-08-05] MEDS: Nicotine Patch Removal NOTE FOLLOW UP SCH (20:05)
[2018-08-06] MEDS: Levothyroxine TAB* 25 MCG TAB PO SCH (05:44)
[2018-08-06] MEDS: Albuterol/Ipratropium NEB.SOL* Albuterol 2.5 MG/Ipratropium 0.5 MG 3 ML INH SCH ×2 (06:38→07:49)
[2018-08-06] MEDS: Tiotropium CAP.INH* CAP.INH/18 MCG (USE ORDER SET !) INH SCH (07:50)
[2018-08-06] MEDS: Mometasone/Formoter 200/5 MDI INH SCH ×2 (07:50→19:59)
[2018-08-06] MEDS ORDERED: Albuterol/Ipratropium NEB.SOL* Albuterol 2.5 MG/Ipratropium 0.5 MG 3 ML INH PRN (07:54)
[2018-08-06 07:57] LABS: Hematocrit 34 % (35-47); Hemoglobin 11.4 g/dL (12.0-16.0); Mean Corpuscular HGB Conc 34 g/dL (31-36); Mean Corpuscular Hemoglobin 31 pg (27-31); Mean Corpuscular Volume 93 fL (80-97); Mean Platelet Volume 7.3 fL (7.4-10.4); Platelet Count 310 10^3/uL (150-450); Red Blood Count 3.66 10^6 /uL (3.70-4.87); Red Cell Distribution Width 16 % (10.5-15); White Blood Count 9.2 10^3/uL (3.5-10.8)
[2018-08-06 08:07] LABS: BUN/Creatinine Ratio 25.3 (8-20); EGFR African American 79.2 (>60); EGFR Non-African American 65.5 (>60); Magnesium 1.7 mg/dL (1.9-2.7); Potassium 4.7 mmol/L (3.5-5.0)
[2018-08-06 08:09] LABS: ABS Basophils 0.1 10^3/ul (0-0.2); ABS Monocytes 0.5 10^3/ul (0-0.8); ABS Neutrophils 7.7 10^3/ul (1.5-7.7); Eosinophil % 0.1 %; Lymphocyte % 10.6 %; Nucleated Red Blood Cells % 0.1
[2018-08-06] MEDS: Fluticasone NASAL SPRAY 50MCG* 16 gm SPRAY BTL BOTH NARES SCH (08:11)
[2018-08-06] MEDS: Furosemide IV* 10 MG/ML VIAL (40 MG) IV SCH ×2 (08:11→22:05)
[2018-08-06] MEDS: Nicotine PATCH 21 MG/24 HR* PATCH TRANSDERM SCH (08:14)
[2018-08-06] MEDS: amLODIPine TAB* 5 MG PO SCH (08:18)
[2018-08-06] MEDS: Gabapentin CAP(*) 300 MG PO SCH ×3 (08:19→22:04)
[2018-08-06] MEDS: celeCOXIB CAP* 200 MG PO SCH (08:20)
[2018-08-06] MEDS: guaiFENesin ER TAB 600 MG PO SCH ×2 (08:20→22:05)
[2018-08-06] MEDS: Docusate CAP* 100 MG PO SCH ×2 (08:20→22:04)
[2018-08-06] MEDS: Aspirin EC TAB* 81 MG TAB.EC PO SCH (08:21)
[2018-08-06] MEDS: Mirtazapine TAB* 15 MG PO SCH ×2 (08:22→22:05)
[2018-08-06] MEDS: Metoprolol Tartrate TAB* 25 MG PO SCH ×2 (08:22→22:05)
[2018-08-06] MEDS: predniSONE TAB* 20 MG PO SCH (08:23)
[2018-08-06] MEDS: Pantoprazole TAB * 40 MG TAB PO SCH (08:23)
[2018-08-06] MEDS ORDERED: Magnesium Sulfate 2 GM IV* 2 GM/50 ML BAG IVPB ONE (09:10)
[2018-08-06] MEDS: Morphine 4 MG/ML VIAL (1 ml) 4 MG/ML VIAL IV PRN ×2 (15:03→22:05)
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
[2018-08-06] MEDS ORDERED: Saline NASAL SPRAY 0.65%* BTL BOTH NARES PRN (19:21)
[2018-08-06] MEDS: Atorvastatin* 80 MG TAB PO SCH (22:04)
[2018-08-07] MEDS: Nicotine Patch Removal NOTE FOLLOW UP SCH ×2 (01:00→23:37)
[2018-08-07] MEDS: Levothyroxine TAB* 25 MCG TAB PO SCH (05:48)
[2018-08-07] MEDS: Tiotropium CAP.INH* CAP.INH/18 MCG (USE ORDER SET !) INH SCH (08:16)
[2018-08-07] MEDS: Mometasone/Formoter 200/5 MDI INH SCH ×2 (08:16→19:15)
[2018-08-07] MEDS: Furosemide IV* 10 MG/ML VIAL (40 MG) IV SCH ×2 (09:20→20:23)
[2018-08-07] MEDS: Nicotine PATCH 21 MG/24 HR* PATCH TRANSDERM SCH (09:20)
[2018-08-07] MEDS: Mirtazapine TAB* 15 MG PO SCH ×2 (09:21→23:36)
[2018-08-07] MEDS: Artificial Tears* 15 ML BTL BOTH EYES PRN (09:21)
[2018-08-07] MEDS: predniSONE TAB* 20 MG PO SCH (09:22)
[2018-08-07] MEDS: amLODIPine TAB* 5 MG PO SCH (09:22)
[2018-08-07] MEDS: Gabapentin CAP(*) 300 MG PO SCH ×3 (09:22→23:35)
[2018-08-07] MEDS: celeCOXIB CAP* 200 MG PO SCH (09:23)
[2018-08-07] MEDS: guaiFENesin ER TAB 600 MG PO SCH ×2 (09:23→23:36)
[2018-08-07] MEDS: Metoprolol Tartrate TAB* 25 MG PO SCH ×2 (09:23→23:36)
[2018-08-07] MEDS: Pantoprazole TAB * 40 MG TAB PO SCH (09:23)
[2018-08-07] MEDS: Aspirin EC TAB* 81 MG TAB.EC PO SCH (09:23)
[2018-08-07] MEDS: Docusate CAP* 100 MG PO SCH ×2 (09:24→23:36)
[2018-08-07] MEDS: Fluticasone NASAL SPRAY 50MCG* 16 gm SPRAY BTL BOTH NARES SCH (10:09)
[2018-08-07] MEDS ORDERED: Ibuprofen TAB* 600 MG PO ONE (13:58)
[2018-08-07] MEDS ORDERED: Ibuprofen TAB* 600 MG ONE (14:00)
--- NOTE | 2018-08-07 16:37 | PN ---
Subjective Date of Service: 08/07/18 Interval History: Reports feeling weaker. Also reports breathing is worse but she is notably distracted and anxious. Feels "lousy" but cannot say why or what her symptoms are Oxygen off when I arrived, was 86% on RA but not SOB Family History: Unchanged from Admission Social History: Unchanged from Admission Past Medical History: Unchanged from Admission Objective Active Medications: Hydrocodone Bitart/Acetaminophen ([place] 5-325 Tab*) 1 tab PO Q6H PRN PRN Reason: PAIN Albuterol (Ventolin Hfa Inhaler*) 2 puff INH Q4H PRN PRN Reason: SOB/WHEEZING Albuterol/Ipratropium (Duoneb (Albuterol 2.5 Mg/Ipratropium 0.5 Mg)) 1 neb INH Q4H PRN PRN Reason: SOB/WHEEZING Amlodipine Besylate (Norvasc Tab*) 10 mg PO DAILY [facility] Last Admin: 08/07/18 09:22 Dose: 10 mg Aspirin (Aspirin Ec Tab*) 81 mg PO DAILY [facility] Last Admin: 08/07/18 09:23 Dose: 81 mg Atorvastatin Calcium (Lipitor*) 80 mg PO BEDTIME [facility] Last Admin: 08/06/18 22:04 Dose: 80 mg Celecoxib (Celebrex Cap*) 200 mg PO QAM [facility] Last Admin: 08/07/18 09:23 Dose: 200 mg Docusate Sodium (Colace Cap*) 100 mg PO BID [facility] Last Admin: 08/07/18 09:24 Dose: 100 mg Fluticasone Propionate (Flonase Nasal [place] 50mcg*) 2 spray BOTH NARES DAILY [facility] Last Admin: 08/07/18 10:09 Dose: 2 spray Furosemide (Lasix Iv*) 40 mg IV 0800,1999 [facility] Last Admin: 08/07/18 09:20 Dose: 40 mg Gabapentin (Neurontin Cap(*)) 600 mg PO TID [facility] Last Admin: 08/07/18 14:03 Dose: 600 mg Guaifenesin (Mucinex*) 600 mg PO BID [facility] Last Admin: 08/07/18 09:23 Dose: 600 mg Levothyroxine Sodium (Synthroid Tab*) 25 mcg PO 0600 [facility] Last Admin: 08/07/18 05:48 Dose: 25 mcg Metoprolol Tartrate (Lopressor Tab*) 25 mg PO BID [facility] Last Admin: 08/07/18 09:23 Dose: 25 mg Mirtazapine (Remeron Tab*) 7.5 mg PO QAM [facility] Last Admin: 08/07/18 09:21 Dose: 7.5 mg Mirtazapine (Remeron Tab*) 15 mg PO BEDTIME [facility] Last Admin: 08/06/18 22:05 Dose: 15 mg Mometasone Furoate/Formoterol Fumar (Dulera 200/5 Mdi*) 2 puff INH BID [facility] Last Admin: 08/07/18 08:16 Dose: 2 puff Nicotine (Nicotine Patch 21 Mg/24 Hr*) 1 patch TRANSDERM DAILY@0800 [facility] Last Admin: 08/07/18 09:20 Dose: 1 patch Nicotine Polacrilex (Nicotine Gum*) 2 mg PO Q2H PRN PRN Reason: CRAVING Nicotine Polacrilex (Nicotine Lozenge Mini) 4 mg MT Q2H PRN PRN Reason: CRAVINGS Pantoprazole Sodium (Protonix Tab*) 40 mg PO DAILY [facility] Last Admin: 08/07/18 09:23 Dose: 40 mg Pharmacy Profile Note (Nicotine Patch Removal Note*) 1 note FOLLOW UP 2100 [facility] Last Admin: 08/07/18 01:00 Dose: 1 note Polyvinyl Alcohol (Polyvinyl Alcohol 1.4% Opth*) 1 drop BOTH EYES Q2H PRN PRN Reason: DRY EYE Last Admin: 08/07/18 09:21 Dose: 1 drop Prednisone (Deltasone Tab*) 40 mg PO DAILY [facility] Last Admin: 08/07/18 09:22 Dose: 40 mg Prochlorperazine Edisylate (Compazine Inj*) 5 mg IV Q6H PRN PRN Reason: NAUSEA/VOMITING Sodium Chloride (Sodium Chloride 0.65% Nasal [place]*) 1 spray BOTH NARES Q4H PRN PRN Reason: DISCOMFORT Tiotropium [place] (Spiriva Cap.Inh*) 1 cap INH DAILY [facility] Last Admin: 08/07/18 08:16 Dose: 1 cap Vital Signs - 8 hr 08/07/18 08/07/18 08/07/18 09:22 11:10 14:03 Respiratory 16 17 16 Rate Oxygen Devices in Use Now: Nasal Cannula Appearance: NAD Eyes: No Scleral Icterus, PERRLA Ears/Nose/Mouth/Throat: NL Teeth, Lips, Gums, Clear Oropharnyx Neck: NL Appearance and Movements; NL JVP, Trachea Midline Respiratory: Symmetrical Chest Expansion and Respiratory Effort, - - decreased throughout rales worse in right base but present b/l bases b/l end expiratory wheeze Cardiovascular: RRR Abdominal: NL Sounds; No Tenderness; No Distention, No Hepatosplenomegaly Lymphatic: No Cervical Adenopathy Extremities: No Edema Neurological: Alert and Oriented x 3 Result Diagrams: 08/06/18 07:45 08/06/18 07:45 Additional Lab and Data: Laboratory Results - last 24 hr 08/06/18 08/06/18 07:45 07:45 WBC 9.2 RBC 3.66 L Hgb 11.4 L Hct 34 L MCV 93 MCH 31 MCHC 34 RDW 16 H Plt Count 310 MPV 7.3 L Neut % (Auto) 82.9 Lymph % (Auto) 10.6 [place] % (Auto) 5.8 Eos % (Auto) 0.1 Baso % (Auto) 0.6 Absolute Neuts (auto) 7.7 Absolute Lymphs (auto) 1.0 Absolute Monos (auto) 0.5 Absolute Eos (auto) 0.0 Absolute Basos (auto) 0.1 Absolute Nucleated RBC 0.0 Nucleated RBC % 0.1 Sodium 137 Potassium 4.7 Chloride 94 L Carbon Dioxide 40 H Anion Gap 3 BUN 21 Creatinine 0.83 Est GFR ( Amer) 79.2 Est GFR (Non-Af Amer) 65.5 BUN/Creatinine Ratio 25.3 H Glucose 150 H Calcium 9.0 Magnesium 1.7 L Microbiology and Other Data: Microbiology 07/30/18 15:37 Blood Venous Aerobic Blood Culture - Final No Growth Day 5 07/30/18 15:37 Blood Venous Anaerobic Blood Culture - Final No Growth Day 5 07/30/18 15:37 Blood Venous Aerobic Blood Culture - Final No Growth Day 5 07/30/18 15:37 Blood Venous Anaerobic Blood Culture - Final No Growth Day 5 08/01/18 14:40 Nasal Nasal Screen MRSA (PCR) - Final Mrsa Not Detected 07/30/18 18:47 Urine Urine Culture - Final 07/30/18 18:47 Urine Legionella Urinary Antigen - Final Negative Legionella Antigen 07/30/18 18:47 Urine Streptococcus pneumoniae Ag Screen - Final Negative S. pneumo Antigen Assess/Plan/Problems-Billing Assessment: 83yo female PMH of moderate COPD, current smoker 1.5ppd for 50 years, CAD (RCA 70% in 2016), IBS, breast CA, anxiety, AIHA s/p splenectomy, chronic pain, HTN, HLD, , GERD, DVT; who presented to ED with c/o several weeks of dyspnea and cough productive of green sputum. Found to have acute hypoxic respiratory failure in setting of suspected COPD exacerbation and evidence of volume overload. s/p tx with cftx/azithromycin. Initially hyponatremic to 120 (resolved ) - Patient Problems (1) Acute hypoxemic respiratory failure Comment: - Acute hypoxemic and hypercapnic respiratory failure. -On presentation treated as most likely pneumonia and is s/p antibiotic course with azithromycin and ceftriaxone. - required rescue BiPAP in ICU but reportedly she'll "never wear it again". - code status updated 08/03 to DNR/DNI, no BiPAP. - Her BNP was elevated on admission and increased on recheck 08/04 AM(>1300 above upper limit). Continue 40mg IV BID, strict io, daily weights. Goal net negative. COPD changes as below If does not improve with additional diuresis and added COPD support then will need to rule out PE. (2) COPD exacerbation Comment: - Continue duoneb. Continue Spiriva(started 08/04) [since her Inora Ellipta was nonformulary and therefore not available and she had not actually been getting 07/30-08/03. Added Dulera 08/05 after her Advair "allergy" was clarifed as "trembling". Tolerating - continue prednisone 40mg daily s/p solumedrol. (3) Pneumonia Comment: - not clearly pneumonia on imaging; negative cultures - s/p 5 days of Ceftriaxone and Zithromax. (4) Sepsis Status: Resolved Comment: - Met SIRS criteria on admission with leukocytosis and tachypnea. Source was COPD exacerbation/difficult to exclude pneumonia. s/p 5 days abx - resolved. (5) Acute diastolic CHF (congestive heart failure) Comment: BNP markedly elevated, seems orthopneic and CXR (repeat) consistent with volume overload. continue lasix 40mg IV BID, strict io, daily weights Grade III diastolic dysfunction on ECHO 06/08/18 (6) Aortic stenosis Comment: moderate according to Echo 06/08/18 Status and Disposition: Inpatient. Needing additional diuresis given continued hypoxic respiratory failure.
[2018-08-07] MEDS: HYDROcodone/ACETAMIN 5-325 MG* 1 TAB PO PRN ×2 (17:06→23:34)
[2018-08-07] MEDS ORDERED: HYDROcodone/ACETAMIN 5-325 MG* 1 TAB PO ONE (17:10)
[2018-08-07] MEDS: Atorvastatin* 80 MG TAB PO SCH (23:34)
[2018-08-08] MEDS: Levothyroxine TAB* 25 MCG TAB PO SCH (06:50)
[2018-08-08 06:59] LABS: BUN/Creatinine Ratio 29.6 (8-20); Calcium 8.6 mg/dL (8.6-10.3); EGFR African American 94.9 (>60); EGFR Non-African American 78.4 (>60); Magnesium 1.7 mg/dL (1.9-2.7)
[2018-08-08] MEDS ORDERED: Magnesium Sulfate 2 GM IV* 2 GM/50 ML BAG IVPB ONE (07:08)
[2018-08-08] MEDS: Mometasone/Formoter 200/5 MDI INH SCH ×2 (07:21→19:12)
[2018-08-08] MEDS: Tiotropium CAP.INH* CAP.INH/18 MCG (USE ORDER SET !) INH SCH (07:21)
[2018-08-08] MEDS: Furosemide IV* 10 MG/ML VIAL (40 MG) IV SCH ×2 (07:47→19:23)
[2018-08-08] MEDS: Fluticasone NASAL SPRAY 50MCG* 16 gm SPRAY BTL BOTH NARES SCH (07:49)
[2018-08-08] MEDS: Nicotine PATCH 21 MG/24 HR* PATCH TRANSDERM SCH (07:50)
[2018-08-08] MEDS: Docusate CAP* 100 MG PO SCH ×2 (07:52→21:33)
[2018-08-08] MEDS: celeCOXIB CAP* 200 MG PO SCH (07:52)
[2018-08-08] MEDS: predniSONE TAB* 20 MG PO SCH (07:52)
[2018-08-08] MEDS: guaiFENesin ER TAB 600 MG PO SCH ×2 (07:53→21:30)
[2018-08-08] MEDS: Aspirin EC TAB* 81 MG TAB.EC PO SCH (07:53)
[2018-08-08] MEDS: Mirtazapine TAB* 15 MG PO SCH ×2 (07:53→21:30)
[2018-08-08] MEDS: Pantoprazole TAB * 40 MG TAB PO SCH (07:53)
[2018-08-08] MEDS: Metoprolol Tartrate TAB* 25 MG PO SCH ×2 (07:53→21:33)
[2018-08-08] MEDS: amLODIPine TAB* 5 MG PO SCH (07:53)
[2018-08-08] MEDS: Gabapentin CAP(*) 300 MG PO SCH ×3 (07:54→21:32)
[2018-08-08] MEDS: HYDROcodone/ACETAMIN 5-325 MG* 1 TAB PO PRN ×2 (11:51→19:21)
[2018-08-08] MEDS ORDERED: HYDROcodone/ACETAMIN 5-325 MG* 1 TAB PO ONE (13:21)
--- NOTE | 2018-08-08 16:47 | PN ---
Subjective Date of Service: 08/08/18 Interval History: Pain from "groin to head" that is unchanged from home Would like to increase norc to 2 tabs which is what she was taking at home Feels repulsed by tobacco in her bag and its smell O2sat 85% on RA increased to 95% on 2L NC Family History: Unchanged from Admission Social History: Unchanged from Admission Past Medical History: Unchanged from Admission Objective Active Medications: Hydrocodone Bitart/Acetaminophen ([place] 5-325 Tab*) 2 tab PO Q6H PRN PRN Reason: PAIN Albuterol (Ventolin Hfa Inhaler*) 2 puff INH Q4H PRN PRN Reason: SOB/WHEEZING Albuterol/Ipratropium (Duoneb (Albuterol 2.5 Mg/Ipratropium 0.5 Mg)) 1 neb INH Q4H PRN PRN Reason: SOB/WHEEZING Amlodipine Besylate (Norvasc Tab*) 10 mg PO DAILY [facility] Last Admin: 08/08/18 07:53 Dose: 10 mg Aspirin (Aspirin Ec Tab*) 81 mg PO DAILY [facility] Last Admin: 08/08/18 07:53 Dose: 81 mg Atorvastatin Calcium (Lipitor*) 80 mg PO BEDTIME [facility] Last Admin: 08/07/18 23:34 Dose: 80 mg Celecoxib (Celebrex Cap*) 200 mg PO QAM [facility] Last Admin: 08/08/18 07:52 Dose: 200 mg Docusate Sodium (Colace Cap*) 100 mg PO BID [facility] Last Admin: 08/08/18 07:52 Dose: 100 mg Fluticasone Propionate (Flonase Nasal [place] 50mcg*) 2 spray BOTH NARES DAILY [facility] Last Admin: 08/08/18 07:49 Dose: 2 spray Furosemide (Lasix Iv*) 40 mg IV 0800,2000 [facility] Last Admin: 08/08/18 07:47 Dose: 40 mg Gabapentin (Neurontin Cap(*)) 600 mg PO TID [facility] Last Admin: 08/08/18 14:03 Dose: 600 mg Guaifenesin (Mucinex*) 600 mg PO BID [facility] Last Admin: 08/08/18 07:53 Dose: 600 mg Acetazolamide Sodium 500 mg/ (Sodium Chloride) 50 mls @ 100 mls/hr IVPB ONCE ONE Stop: 08/08/18 17:08 Levothyroxine Sodium (Synthroid Tab*) 25 mcg PO 0600 [facility] Last Admin: 08/08/18 06:50 Dose: 25 mcg Metoprolol Tartrate (Lopressor Tab*) 25 mg PO BID [facility] Last Admin: 08/08/18 07:53 Dose: 25 mg Mirtazapine (Remeron Tab*) 7.5 mg PO QAM [facility] Last Admin: 08/08/18 07:53 Dose: 7.5 mg Mirtazapine (Remeron Tab*) 15 mg PO BEDTIME [facility] Last Admin: 08/07/18 23:36 Dose: 15 mg Mometasone Furoate/Formoterol Fumar (Dulera 200/5 Mdi*) 2 puff INH BID [facility] Last Admin: 08/08/18 07:21 Dose: 2 puff Nicotine (Nicotine Patch 21 Mg/24 Hr*) 1 patch TRANSDERM DAILY@0800 [facility] Last Admin: 08/08/18 07:50 Dose: 1 patch Nicotine Polacrilex (Nicotine Gum*) 2 mg PO Q2H PRN PRN Reason: CRAVING Nicotine Polacrilex (Nicotine Lozenge Mini) 4 mg MT Q2H PRN PRN Reason: CRAVINGS Pantoprazole Sodium (Protonix Tab*) 40 mg PO DAILY [facility] Last Admin: 08/08/18 07:53 Dose: 40 mg Pharmacy Profile Note (Nicotine Patch Removal Note*) 1 note FOLLOW UP 2100 [facility] Last Admin: 08/07/18 23:37 Dose: 1 note Polyvinyl Alcohol (Polyvinyl Alcohol 1.4% Opth*) 1 drop BOTH EYES Q2H PRN PRN Reason: DRY EYE Last Admin: 08/07/18 09:21 Dose: 1 drop Prednisone (Deltasone Tab*) 40 mg PO DAILY [facility] Last Admin: 08/08/18 07:52 Dose: 40 mg Prochlorperazine Edisylate (Compazine Inj*) 5 mg IV Q6H PRN PRN Reason: NAUSEA/VOMITING Sodium Chloride (Sodium Chloride 0.65% Nasal [place]*) 1 spray BOTH NARES Q4H PRN PRN Reason: DISCOMFORT Tiotropium [place] (Spiriva Cap.Inh*) 1 cap INH DAILY [facility] Last Admin: 08/08/18 07:21 Dose: 1 cap Vital Signs - 8 hr 08/08/18 08/08/18 08/08/18 09:52 11:51 13:51 Respiratory 18 20 20 Rate 08/08/18 14:03 Respiratory 20 Rate Oxygen Devices in Use Now: Nasal Cannula Appearance: NAD Eyes: No Scleral Icterus, PERRLA Ears/Nose/Mouth/Throat: NL Teeth, Lips, Gums Neck: NL Appearance and Movements; NL JVP Respiratory: Symmetrical Chest Expansion and Respiratory Effort, - - rales in left base, no wheezes, prolonged expiratory phase Cardiovascular: RRR Abdominal: NL Sounds; No Tenderness; No Distention, No Hepatosplenomegaly Lymphatic: No Cervical Adenopathy Neurological: Alert and Oriented x 3 Result Diagrams: 08/06/18 07:45 08/08/18 06:35 Additional Lab and Data: Laboratory Results - last 24 hr 08/06/18 08/06/18 07:45 07:45 WBC 9.2 RBC 3.66 L Hgb 11.4 L Hct 34 L MCV 93 MCH 31 MCHC 34 RDW 16 H Plt Count 310 MPV 7.3 L Neut % (Auto) 82.9 Lymph % (Auto) 10.6 [place] % (Auto) 5.8 Eos % (Auto) 0.1 Baso % (Auto) 0.6 Absolute Neuts (auto) 7.7 Absolute Lymphs (auto) 1.0 Absolute Monos (auto) 0.5 Absolute Eos (auto) 0.0 Absolute Basos (auto) 0.1 Absolute Nucleated RBC 0.0 Nucleated RBC % 0.1 Sodium 137 Potassium 4.7 Chloride 94 L Carbon Dioxide 40 H Anion Gap 3 BUN 21 Creatinine 0.83 Est GFR ( Amer) 79.2 Est GFR (Non-Af Amer) 65.5 BUN/Creatinine Ratio 25.3 H Glucose 150 H Calcium 9.0 Magnesium 1.7 L Microbiology and Other Data: Microbiology 07/30/18 15:37 Blood Venous Aerobic Blood Culture - Final No Growth Day 5 07/30/18 15:37 Blood Venous Anaerobic Blood Culture - Final No Growth Day 5 07/30/18 15:37 Blood Venous Aerobic Blood Culture - Final No Growth Day 5 07/30/18 15:37 Blood Venous Anaerobic Blood Culture - Final No Growth Day 5 08/01/18 14:40 Nasal Nasal Screen MRSA (PCR) - Final Mrsa Not Detected 07/30/18 18:47 Urine Urine Culture - Final 07/30/18 18:47 Urine Legionella Urinary Antigen - Final Negative Legionella Antigen 07/30/18 18:47 Urine Streptococcus pneumoniae Ag Screen - Final Negative S. pneumo Antigen Assess/Plan/Problems-Billing Assessment: 83yo female PMH of moderate COPD, current smoker 1.5ppd for 50 years, CAD (RCA 70% in 2016), IBS, breast CA, anxiety, AIHA s/p splenectomy, chronic pain, HTN, HLD, , GERD, DVT; who presented to ED with c/o several weeks of dyspnea and cough productive of green sputum. Found to have acute hypoxic respiratory failure in setting of suspected COPD exacerbation and evidence of volume overload. s/p tx with cftx/azithromycin. Initially hyponatremic to 120 (resolved ) - Patient Problems (1) Acute hypoxemic respiratory failure Comment: - Acute hypoxemic and hypercapnic respiratory failure. -On presentation treated as most likely pneumonia and is s/p antibiotic course with azithromycin and ceftriaxone. - required rescue BiPAP in ICU but reportedly she'll "never wear it again". - code status updated 08/03 to DNR/DNI, no BiPAP. - Her BNP was elevated on admission and increased on recheck 08/04 AM(>1300 above upper limit). Continue 40mg IV BID strict io, daily weights Acetazolamide x 1 now for contraction alkalosis and repeat BMP in AM Repeat chest xray with continued volume overload Imaging with continued fluid so I will not move to r/o PE. This may have been too great an insult to her already damaged lungs and she may need chronic O2 therapy even with complete diuresis (2) COPD exacerbation Comment: - Continue duoneb. Continue Spiriva(started 08/04) [since her Inora Ellipta was nonformulary and therefore not available and she had not actually been getting 07/30-08/03. Added Dulera 08/05 after her Advair "allergy" was clarifed as "trembling". Tolerating - continue prednisone 40mg daily s/p solumedrol. (3) Pneumonia Comment: - not clearly pneumonia on imaging; negative cultures - s/p 5 days of Ceftriaxone and Zithromax. (4) Sepsis Status: Resolved Comment: - Met SIRS criteria on admission with leukocytosis and tachypnea. Source was COPD exacerbation/difficult to exclude pneumonia. s/p 5 days abx - resolved. (5) Acute diastolic CHF (congestive heart failure) Comment: BNP markedly elevated, seemed orthopneic and CXR (repeat) consistent with volume overload. continue lasix 40mg IV BID, strict io, daily weights Grade III diastolic dysfunction on ECHO 06/08/18 See above - repeat CXR 08/08 with apparent interstitial edema (6) Aortic stenosis Comment: moderate according to Echo 06/08/18 Status and Disposition: Inpatient. Needing additional diuresis given continued hypoxic respiratory failure.
[2018-08-08] MEDS ORDERED: acetaZOLAMIDE VIAL* 500 MG in NS 0.9% 50 ML* 50 ML IVPB ONE (18:00)
[2018-08-08] MEDS: Atorvastatin* 80 MG TAB PO SCH (21:33)
[2018-08-08] MEDS: Nicotine Patch Removal NOTE FOLLOW UP SCH (21:33)
[2018-08-09] MEDS: HYDROcodone/ACETAMIN 5-325 MG* 1 TAB PO PRN ×3 (03:26→18:21)
[2018-08-09] MEDS: Levothyroxine TAB* 25 MCG TAB PO SCH (05:06)
[2018-08-09 06:09] LABS: ABS Eosinophils 0.5 10^3/ul (0-0.6); ABS Lymphocytes 2.3 10^3/ul (1.0-4.8); ABS Monocytes 1.4 10^3/ul (0-0.8); ABS Neutrophils 9.3 10^3/ul (1.5-7.7); Eosinophil % 3.6 %; Hematocrit 35 % (35-47); Hemoglobin 11.7 g/dL (12.0-16.0); Mean Corpuscular HGB Conc 33 g/dL (31-36); Mean Corpuscular Hemoglobin 31 pg (27-31); Mean Corpuscular Volume 93 fL (80-97); Mean Platelet Volume 7.9 fL (7.4-10.4); Platelet Count 303 10^3/uL (150-450); Red Blood Count 3.81 10^6 /uL (3.70-4.87); Red Cell Distribution Width 17 % (10.5-15); White Blood Count 13.4 10^3/uL (3.5-10.8)
[2018-08-09 06:38] LABS: BUN/Creatinine Ratio 27.8 (8-20); Calcium 8.5 mg/dL (8.6-10.3); EGFR African American 72.2 (>60); EGFR Non-African American 59.7 (>60); Magnesium 2.4 mg/dL (1.9-2.7); Potassium 3.7 mmol/L (3.5-5.0)
[2018-08-09] MEDS: Nicotine PATCH 21 MG/24 HR* PATCH TRANSDERM SCH (08:06)
[2018-08-09] MEDS: Fluticasone NASAL SPRAY 50MCG* 16 gm SPRAY BTL BOTH NARES SCH (08:06)
[2018-08-09] MEDS: Furosemide IV* 10 MG/ML VIAL (40 MG) IV SCH ×2 (08:06→19:55)
[2018-08-09] MEDS: Metoprolol Tartrate TAB* 25 MG PO SCH ×2 (08:07→22:41)
[2018-08-09] MEDS: celeCOXIB CAP* 200 MG PO SCH (08:07)
[2018-08-09] MEDS: amLODIPine TAB* 5 MG PO SCH (08:07)
[2018-08-09] MEDS: Aspirin EC TAB* 81 MG TAB.EC PO SCH (08:07)
[2018-08-09] MEDS: Mirtazapine TAB* 15 MG PO SCH ×2 (08:07→22:41)
[2018-08-09] MEDS: Docusate CAP* 100 MG PO SCH ×2 (08:07→22:41)
[2018-08-09] MEDS: guaiFENesin ER TAB 600 MG PO SCH ×2 (08:08→22:41)
[2018-08-09] MEDS: Pantoprazole TAB * 40 MG TAB PO SCH (08:08)
[2018-08-09] MEDS: Gabapentin CAP(*) 300 MG PO SCH ×3 (08:09→22:41)
[2018-08-09] MEDS: predniSONE TAB* 20 MG PO SCH (08:09)
[2018-08-09] MEDS: Tiotropium CAP.INH* CAP.INH/18 MCG (USE ORDER SET !) INH SCH (11:13)
[2018-08-09] MEDS: Mometasone/Formoter 200/5 MDI INH SCH ×2 (11:14→19:50)
--- NOTE | 2018-08-09 17:59 | PN ---
Subjective Date of Service: 08/09/18 Interval History: Breathing is feeling better but still requiring oxygen Tangential and has to be kept on target when discussing plan and symptoms generally more up beat today Family History: Unchanged from Admission Social History: Unchanged from Admission Past Medical History: Unchanged from Admission Objective Active Medications: Hydrocodone Bitart/Acetaminophen ([place] 5-325 Tab*) 2 tab PO Q6H PRN PRN Reason: PAIN Last Admin: 08/09/18 11:48 Dose: 2 tab Albuterol (Ventolin Hfa Inhaler*) 2 puff INH Q4H PRN PRN Reason: SOB/WHEEZING Albuterol/Ipratropium (Duoneb (Albuterol 2.5 Mg/Ipratropium 0.5 Mg)) 1 neb INH Q4H PRN PRN Reason: SOB/WHEEZING Amlodipine Besylate (Norvasc Tab*) 10 mg PO DAILY [facility] Last Admin: 08/09/18 08:07 Dose: 10 mg Aspirin (Aspirin Ec Tab*) 81 mg PO DAILY [facility] Last Admin: 08/09/18 08:07 Dose: 81 mg Atorvastatin Calcium (Lipitor*) 80 mg PO BEDTIME [facility] Last Admin: 08/08/18 21:33 Dose: 80 mg Celecoxib (Celebrex Cap*) 200 mg PO QAM [facility] Last Admin: 08/09/18 08:07 Dose: 200 mg Docusate Sodium (Colace Cap*) 100 mg PO BID [facility] Last Admin: 08/09/18 08:07 Dose: 100 mg Fluticasone Propionate (Flonase Nasal [place] 50mcg*) 2 spray BOTH NARES DAILY [facility] Last Admin: 08/09/18 08:06 Dose: 2 spray Furosemide (Lasix Iv*) 40 mg IV 799,1999 [facility] Last Admin: 08/09/18 08:06 Dose: 40 mg Gabapentin (Neurontin Cap(*)) 600 mg PO TID [facility] Last Admin: 08/09/18 14:44 Dose: 600 mg Guaifenesin (Mucinex*) 600 mg PO BID [facility] Last Admin: 08/09/18 08:08 Dose: 600 mg Acetazolamide Sodium 500 mg/ (Sodium Chloride) 50 mls @ 100 mls/hr IVPB ONCE ONE Stop: 08/09/18 18:24 Levothyroxine Sodium (Synthroid Tab*) 25 mcg PO 0600 [facility] Last Admin: 08/09/18 05:06 Dose: 25 mcg Metoprolol Tartrate (Lopressor Tab*) 25 mg PO BID [facility] Last Admin: 08/09/18 08:07 Dose: 25 mg Mirtazapine (Remeron Tab*) 7.5 mg PO QAM [facility] Last Admin: 08/09/18 08:07 Dose: 7.5 mg Mirtazapine (Remeron Tab*) 15 mg PO BEDTIME [facility] Last Admin: 08/08/18 21:30 Dose: 15 mg Mometasone Furoate/Formoterol Fumar (Dulera 200/5 Mdi*) 2 puff INH BID [facility] Last Admin: 08/09/18 11:14 Dose: 2 puff Nicotine (Nicotine Patch 21 Mg/24 Hr*) 1 patch TRANSDERM DAILY@0800 [facility] Last Admin: 08/09/18 08:06 Dose: 1 patch Nicotine Polacrilex (Nicotine Gum*) 2 mg PO Q2H PRN PRN Reason: CRAVING Nicotine Polacrilex (Nicotine Lozenge Mini) 4 mg MT Q2H PRN PRN Reason: CRAVINGS Pantoprazole Sodium (Protonix Tab*) 40 mg PO DAILY [facility] Last Admin: 08/09/18 08:08 Dose: 40 mg Pharmacy Profile Note (Nicotine Patch Removal Note*) 1 note FOLLOW UP 2100 [facility] Last Admin: 08/08/18 21:33 Dose: 1 note Polyvinyl Alcohol (Polyvinyl Alcohol 1.4% Opth*) 1 drop BOTH EYES Q2H PRN PRN Reason: DRY EYE Last Admin: 08/07/18 09:21 Dose: 1 drop Prochlorperazine Edisylate (Compazine Inj*) 5 mg IV Q6H PRN PRN Reason: NAUSEA/VOMITING Sodium Chloride (Sodium Chloride 0.65% Nasal [place]*) 1 spray BOTH NARES Q4H PRN PRN Reason: DISCOMFORT Tiotropium [place] (Spiriva Cap.Inh*) 1 cap INH DAILY [facility] Last Admin: 08/09/18 11:13 Dose: 1 cap Vital Signs - 8 hr 08/09/18 08/09/18 08/09/18 10:09 11:17 11:38 Temperature 98.0 F Pulse Rate 74 107 Respiratory 19 18 17 Rate Blood Pressure 108/29 (mmHg) O2 Sat by Pulse 94 96 Oximetry 08/09/18 08/09/18 08/09/18 11:48 13:48 14:44 Temperature Pulse Rate Respiratory 20 20 19 Rate Blood Pressure (mmHg) O2 Sat by Pulse Oximetry Oxygen Devices in Use Now: Nasal Cannula - 2L Appearance: sitting in chair, NAD Eyes: No Scleral Icterus, PERRLA Ears/Nose/Mouth/Throat: NL Teeth, Lips, Gums, Clear Oropharnyx Neck: NL Appearance and Movements; NL JVP, Trachea Midline Respiratory: Symmetrical Chest Expansion and Respiratory Effort, - - faint rales right base, decreased on right Cardiovascular: RRR, - - MOLLY Abdominal: NL Sounds; No Tenderness; No Distention, No Hepatosplenomegaly Lymphatic: No Cervical Adenopathy Extremities: No Edema Neurological: Alert and Oriented x 3 Result Diagrams: 08/09/18 05:52 08/09/18 05:52 Additional Lab and Data: Laboratory Results - last 24 hr 08/06/18 08/06/18 07:45 07:45 WBC 9.2 RBC 3.66 L Hgb 11.4 L Hct 34 L MCV 93 MCH 31 MCHC 34 RDW 16 H Plt Count 310 MPV 7.3 L Neut % (Auto) 82.9 Lymph % (Auto) 10.6 [place] % (Auto) 5.8 Eos % (Auto) 0.1 Baso % (Auto) 0.6 Absolute Neuts (auto) 7.7 Absolute Lymphs (auto) 1.0 Absolute Monos (auto) 0.5 Absolute Eos (auto) 0.0 Absolute Basos (auto) 0.1 Absolute Nucleated RBC 0.0 Nucleated RBC % 0.1 Sodium 137 Potassium 4.7 Chloride 94 L Carbon Dioxide 40 H Anion Gap 3 BUN 21 Creatinine 0.83 Est GFR ( Amer) 79.2 Est GFR (Non-Af Amer) 65.5 BUN/Creatinine Ratio 25.3 H Glucose 150 H Calcium 9.0 Magnesium 1.7 L Microbiology and Other Data: Microbiology 07/30/18 15:37 Blood Venous Aerobic Blood Culture - Final No Growth Day 07/30/18 15:37 Blood Venous Anaerobic Blood Culture - Final No Growth Day 07/30/18 15:37 Blood Venous Aerobic Blood Culture - Final No Growth Day 07/30/18 15:37 Blood Venous Anaerobic Blood Culture - Final No Growth Day 08/01/18 14:40 Nasal Nasal Screen MRSA (PCR) - Final Mrsa Not Detected 07/30/18 18:47 Urine Urine Culture - Final 07/30/18 18:47 Urine Legionella Urinary Antigen - Final Negative Legionella Antigen 07/30/18 18:47 Urine Streptococcus pneumoniae Ag Screen - Final Negative S. pneumo Antigen Assess/Plan/Problems-Billing Assessment: 83yo female PMH of moderate COPD, current smoker 1.5ppd for 50 years, CAD (RCA 70% in 2016), IBS, breast CA, anxiety, AIHA s/p splenectomy, chronic pain, HTN, HLD, , GERD, DVT; who presented to ED with c/o several weeks of dyspnea and cough productive of green sputum. Found to have acute hypoxic respiratory failure in setting of suspected COPD exacerbation and evidence of volume overload. s/p tx with cftx/azithromycin. Initially hyponatremic to 120 (resolved ) - Patient Problems (1) Acute hypoxemic respiratory failure Comment: - Acute hypoxemic and hypercapnic respiratory failure. -On presentation treated as most likely pneumonia and is s/p antibiotic course with azithromycin and ceftriaxone. - required rescue BiPAP in ICU but reportedly she'll "never wear it again". - code status updated 08/03 to DNR/DNI, no BiPAP. - Her BNP was elevated on admission and increased on recheck 08/04 AM(>1300 above upper limit). Continue 40mg IV BID strict io, daily weights Acetazolamide x 1 (second dose) now for contraction alkalosis and repeat BMP in AM Repeat chest xray with continued volume overload This may have been too great an insult to her already damaged lungs and she may need chronic O2 therapy even with complete diuresis (2) COPD exacerbation Comment: - Continue duoneb. Continue Spiriva(started 08/04) [since her [place] Ellipta was nonformulary and therefore not available and she had not actually been getting 07/30-08/03. Added Dulera 08/05 after her Advair "allergy" was clarifed as "trembling". Tolerating - titrate prednisone from 40mg daily to 20daily starting 08/10 s/p solumedrol. (3) Pneumonia Comment: - not clearly pneumonia on imaging; negative cultures - s/p 5 days of Ceftriaxone and Zithromax. (4) Sepsis Status: Resolved Comment: - Met SIRS criteria on admission with leukocytosis and tachypnea. Source was COPD exacerbation/difficult to exclude pneumonia. s/p 5 days abx - resolved. (5) Acute diastolic CHF (congestive heart failure) Comment: BNP markedly elevated, seemed orthopneic and CXR (repeat) consistent with volume overload. continue lasix 40mg IV BID, strict io, daily weights Grade III diastolic dysfunction on ECHO 06/08/18 See above - repeat CXR 08/08 with apparent interstitial edema (6) Aortic stenosis Comment: moderate according to Echo 06/08/18 Status and Disposition: Inpatient. Needing additional diuresis given continued hypoxic respiratory failure.
[2018-08-09] MEDS ORDERED: acetaZOLAMIDE VIAL* 500 MG in NS 0.9% 50 ML* 50 ML IVPB ONE (18:30)
[2018-08-09] MEDS: Atorvastatin* 80 MG TAB PO SCH (22:41)
[2018-08-09] MEDS: Nicotine Patch Removal NOTE FOLLOW UP SCH (22:43)
[2018-08-10] MEDS: HYDROcodone/ACETAMIN 5-325 MG* 1 TAB PO PRN ×2 (00:24→14:15)
[2018-08-10] MEDS: Levothyroxine TAB* 25 MCG TAB PO SCH (05:57)
[2018-08-10 07:09] LABS: Calcium 8.7 mg/dL (8.6-10.3); EGFR African American 73.1 (>60); EGFR Non-African American 60.4 (>60); Potassium 3.8 mmol/L (3.5-5.0)
[2018-08-10] MEDS: Tiotropium CAP.INH* CAP.INH/18 MCG (USE ORDER SET !) INH SCH (07:27)
[2018-08-10] MEDS: Mometasone/Formoter 200/5 MDI INH SCH (07:27)
[2018-08-10] MEDS: Furosemide IV* 10 MG/ML VIAL (40 MG) IV SCH (08:53)
[2018-08-10] MEDS: Gabapentin CAP(*) 300 MG PO SCH ×2 (08:53→14:13)
[2018-08-10] MEDS: Fluticasone NASAL SPRAY 50MCG* 16 gm SPRAY BTL BOTH NARES SCH (08:53)
[2018-08-10] MEDS: Docusate CAP* 100 MG PO SCH (08:54)
[2018-08-10] MEDS: celeCOXIB CAP* 200 MG PO SCH (08:54)
[2018-08-10] MEDS: Metoprolol Tartrate TAB* 25 MG PO SCH (08:54)
[2018-08-10] MEDS: amLODIPine TAB* 5 MG PO SCH (08:54)
[2018-08-10] MEDS: guaiFENesin ER TAB 600 MG PO SCH (08:55)
[2018-08-10] MEDS: Nicotine PATCH 21 MG/24 HR* PATCH TRANSDERM SCH (08:55)
[2018-08-10] MEDS: Aspirin EC TAB* 81 MG TAB.EC PO SCH (08:55)
[2018-08-10] MEDS: Pantoprazole TAB * 40 MG TAB PO SCH (08:55)
[2018-08-10] MEDS: Mirtazapine TAB* 15 MG PO SCH (08:55)
[2018-08-10] MEDS ORDERED: predniSONE TAB* 20 MG PO SCH (09:00)
--- NOTE | 2018-08-10 13:11 | DS ---
CC: Dr. Burciaga* DISCHARGE SUMMARY: DATE OF ADMISSION: 07/30/18 DATE OF DISCHARGE: 08/10/18 PRIMARY CARE PROVIDER: Dr. Burciaga. DISPOSITION ON DISCHARGE: Luz. CONDITION ON DISCHARGE: Improved. PRIMARY DIAGNOSES: 1. Chronic obstructive pulmonary disease exacerbation. 2. Heart failure with preserved ejection fraction exacerbation. 3. Suspected pneumonia status post antibiotics. 4. Sepsis. SECONDARY DIAGNOSES: Include: 1. Coronary artery disease. 2. Irritable bowel syndrome. 3. Anxiety. 4. Hemolytic anemia. 5. Status post splenectomy. 6. Arthritis. 7. Chronic pain. 8. Hypertension. 9. Hyperlipidemia. 10. Hypothyroidism. 11. Moderate to severe aortic stenosis. 12. Moderate to severe mitral regurgitation. 13. Gastroesophageal reflux disease, 14. History of deep vein thrombosis and seizures. MEDICATIONS ON DISCHARGE: Include: 1. Omeprazole 40 mg daily. 2. Celebrex 200 mg in the morning. 3. Mucinex 1 tab daily as needed. 4. Hypromellose 1 g ophthalmic daily p.r.n. 5. Docusate 100 mg at bedtime as needed. 6. Albuterol HFA 2 puffs every 4 hours as needed. 7. Ipratropium 1 nebulizer twice daily as needed. 8. Acetaminophen hydrocodone 5/325 one tab 3 times a day as needed. 9. Dextromethorphan guaifenesin 5 to 10 mL every 4 hours as needed for cough. 10. Systane Balance 0.6% both eyes 3 to 4 times a day as needed. 11. Multivitamin tabs 1 tab daily. 12. Incruse Ellipta 1 inhaled daily. 13. Mirtazapine 7.5 mg in the morning. 14. Probiotics 1 cap daily. 15. Mirtazapine 15 mg at bedtime. 16. Metoprolol tartrate 25 mg twice daily. 17. Loperamide 2 mg 4 times a day as needed for diarrhea. 18. Levothyroxine 25 mcg in the morning. 19. Gabapentin 600 mg 3 times a day. 20. Folic acid 1 mg daily. 21. Fluticasone nasal spray 1 to 2 sprays both nares daily. 22. Ergocalciferol 50,000 units monthly. 23. Cyanocobalamin 500 mcg daily. 24. Fioricet 1 tab daily as needed for migraine. 25. Amlodipine 10 mg daily. 26. Atorvastatin 80 mg at bedtime. 27. Aspirin 81 mg daily. 28. Prednisone taper 20 mg for 5 additional days and 10 mg daily. 29. Saline nasal spray 0.65% one spray both nares every 4 hours needed. 30. Nicotine patch 21 mcg every 24 hours then removed. 31. Lasix 20 mg daily. Please note the addition to her home medications of Lasix 20 mg daily as well as the prednisone taper. HISTORY OF PRESENT ILLNESS AND HOSPITAL COURSE: This is an 83-year-old female with past medical history as outlined in the history of present illness on the day of admission including COPD, [id number] aortic stenosis and moderate severe tricuspid regurge presented to the hospital with shortness of breath, suffered combined hypoxic hypercarbic respiratory failure, was placed on BiPAP in the ICU. Respiratory failure is found in the setting of combination of COPD as well as pneumonia. After the course of BiPAP indicated that she would never want to utilize BiPAP again and she would not want to be resuscitated if her heart were to stop. Her MOLST was updated accordingly prior to me assuming care. She was also seen by Dr. Ochoa, discussed palliative care; however, the patient is not interested in accepting hospice and palliative care at this day, but may be interested upon discharge. The patient was treated with appropriate course of antibiotics for suspected pneumonia which included 5 days of ceftriaxone and azithromycin. Additionally, she was started on COPD exacerbation medication as well as IV steroids titrated down to p.o. prednisone titrated further to 20 mg steroids prior to discharge. During the course of the hospital stay she was noted to have increased fluid in her lungs clinically as well as radiographically as well as the BNP that is elevated to 1300. She was diuresed aggressively during the course of hospital stay with 60 mg of IV Lasix twice daily. Acetazolamide was given twice to mitigate contraction alkalosis on the day of discharge. Her serum bicarb was 40. Her breathing improved; however, she remained on 1 to 2 L nasal cannula, desatting to 85% or less at rest without it . I think she is appropriately diuresed at this time. Her creatinine was starting to elevate, her BUN is elevating and less fluid is diuresed using the same amount of Lasix. I believe various insults from COPD, CHF, and pneumonia have taken a toll on her already damaged lungs from long-term COPD and smoking. She will be chronically oxygen independent from now on. There are no complications during the course of hospital stay. On presentation with leukocytosis and tachycardia she did meet SIRS criteria, which would be sepsis criteria, if pneumonia was deemed true. Unclear if pneumonia was playing a significant role on her presentation, which she did receive antibiotics. They have discharged the patient who felt well, was in good spirits, was anxious to go to [place] and begin physical therapy. No complications during the course of the hospital stay. AT FOLLOWUP PLEASE: 1. Titrate prednisone as indicated above. 2. Adjust Lasix as necessary. The patient has never wanted to indicate peripheral swelling on exam despite interstitial lung edema radiographically. I started her on 20 mg Lasix, may need to be increased, can follow kidney function as necessary. 3. No other specific labs or vitals that follow. 4. Reasons return to the hospital including, but not limited to recurrent or worsening symptoms, chest pain, shortness of breath, nausea, vomiting, lightheadedness, loss of conscious, near loss of conscious, bleeding for any source was discussed with the patient. She acknowledged understanding. TIME SPENT: Greater than 60 minutes was spent in the discharge of this patient , greater than half was spent [id number] with the patient. [id number]/[facility] #: [id number] SINDI
[2018-08-10 14:00] VITALS: BP 121/73
== END 2018-08-10 14:50 | disposition home or self-care (01) | DRG 871 ==
LOC: ED 14:35 → MED 18:25 → OBSVTOIN 07-31 14:37 → ICU 08-01 14:04 → MED 08-02 08:29
PROVIDERS: ADMIT Internal Medicine; ATTEND Internal Medicine
PROC: 5A09357 Assistance with Respiratory Ventilation, Less than 24 Consecutive Hours, Continuous Positive Airway Pressure (ICD-10-PCS; principal; 2018-08-01)
DX: A41.9 Sepsis, unspecified organism (principal); J18.9 Pneumonia, unspecified organism; J96.02 Acute respiratory failure with hypercapnia; J96.01 Acute respiratory failure with hypoxia; I50.33 Acute on chronic diastolic (congestive) heart failure; E87.1 Hypo-osmolality and hyponatremia; D58.9 Hereditary hemolytic anemia, unspecified; E46 Unspecified protein-calorie malnutrition; E87.2 Acidosis; I11.0 Hypertensive heart disease with heart failure; I25.10 Atherosclerotic heart disease of native coronary artery without angina pectoris; K58.9 Irritable bowel syndrome, unspecified; F41.9 Anxiety disorder, unspecified; M19.91 Primary osteoarthritis, unspecified site; G89.29 Other chronic pain; E78.5 Hyperlipidemia, unspecified; E03.9 Hypothyroidism, unspecified; J43.9 Emphysema, unspecified; K44.9 Diaphragmatic hernia without obstruction or gangrene; M81.0 Age-related osteoporosis without current pathological fracture; H26.9 Unspecified cataract; G43.909 Migraine, unspecified, not intractable, without status migrainosus; K21.9 Gastro-esophageal reflux disease without esophagitis; E06.3 Autoimmune thyroiditis; R41.0 Disorientation, unspecified; E78.00 Pure hypercholesterolemia, unspecified; F17.210 Nicotine dependence, cigarettes, uncomplicated; E86.0 Dehydration; I08.3 Combined rheumatic disorders of mitral, aortic and tricuspid valves; I27.20 Pulmonary hypertension, unspecified; Z66 Do not resuscitate; Z90.81 Acquired absence of spleen; Z79.82 Long term (current) use of aspirin; Z86.718 Personal history of other venous thrombosis and embolism; Z79.890 Hormone replacement therapy; Z79.51 Long term (current) use of inhaled steroids; Z88.8 Allergy status to other drugs, medicaments and biological substances; Z88.2 Allergy status to sulfonamides; Z88.1 Allergy status to other antibiotic agents; Z91.040 Latex allergy status; Z90.12 Acquired absence of left breast and nipple; Z87.442 Personal history of urinary calculi; Z85.3 Personal history of malignant neoplasm of breast; Z92.21 Personal history of antineoplastic chemotherapy; Z90.5 Acquired absence of kidney; Z82.5 Family history of asthma and other chronic lower respiratory diseases; I25.2 Old myocardial infarction; Z90.710 Acquired absence of both cervix and uterus; Z91.041 Radiographic dye allergy status; Z68.21 Body mass index [BMI] 21.0-21.9, adult; Z82.49 Family history of ischemic heart disease and other diseases of the circulatory system; Z81.8 Family history of other mental and behavioral disorders; Z80.9 Family history of malignant neoplasm, unspecified
CPT/HCPCS: 36415; 36600; 71045; 71046; 80048; 80053; 80076; 81003; 81015; 82550; 82803; 83605; 83735; 83880; 83930; 83935; 84100; 84300; 84484; 85025; 85027; 85379; 86140; 87040; 87086; 87641; 87899; 93005; 93306; 94640; 94660; 99285; A9270-GY; G8978-GP-CJ; G8979-GP-CI; J0456; J0696; J1120; J1630; J1644; J1940; J2270; J2920; J2930; J3475; J7512

== ENCOUNTER 2019-01-30 03:07 | Emergency (ER) | payer MEDICARE, MEDICAID ==
--- NOTE | 2019-01-30 03:15 | ED ---
Abdominal Pain/Female - HPI Summary HPI Summary: Patient is an 83 y/o F presenting to the ED via EMS for a chief complaint of abdominal pain. Patient describes the abdominal pain as cramps. Patient also admits diarrhea and nausea that began at midnight on 01/30/19 and has worsened since initial onset. Patient also admits chest pain and headache. Patient denies fever or myalgia. Patient has had several abdominal surgeries in the past , including an appendectomy. Patient has a PMHx of anemia and aortic stenosis. Patient had an appointment to see Dr. Sims and had bloodwork performed at that time, but is not currently receiving any treatments. Patient lives alone. - History of Current Complaint Stated Complaint: HEART PROB. PER EMS Hx Obtained From: Patient Onset/Duration: Sudden Onset, Still Present Timing: Intermittent Episode Lasting Severity Initially: Moderate Severity Currently: Moderate Pain Scale Used: 0-10 Numeric Location: Diffuse Radiates: No Character: Cramping Aggravating Factor(s): Nothing Alleviating Factor(s): Nothing Associated Signs and Symptoms: Positive: Nausea, Diarrhea, Other: - Negative [place]. Negative: Fever, Chest Pain Allergies/Adverse Reactions: Allergies Allergy/AdvReac Type Severity Reaction Status Date / Time acetaminophen [From Tylenol] Allergy Unknown Verified 01/30/19 03:27 Reaction Details bupropion [From Wellbutrin] Allergy Unknown Verified 01/30/19 03:27 Reaction Details carbamazepine Allergy Unknown Verified 01/30/19 03:27 Reaction Details clindamycin Allergy Unknown Verified 01/30/19 03:27 Reaction Details divalproex sodium Allergy Unknown Verified 01/30/19 03:27 [From Depakote] Reaction Details fluticasone Allergy Unknown Verified 01/30/19 03:27 [From Advair Diskus] Reaction Details iodine Allergy Unknown Verified 01/30/19 03:27 Reaction Details latex Allergy Unknown Verified 01/30/19 03:27 Reaction Details levofloxacin [From Levaquin] Allergy Unknown Verified 01/30/19 03:27 Reaction Details lidocaine Allergy Unknown Verified 01/30/19 03:27 Reaction Details olanzapine [From Zyprexa] Allergy Unknown Verified 01/30/19 03:27 Reaction Details paroxetine [From Paxil] Allergy Agitation Verified 01/30/19 03:27 phenytoin [From Dilantin] Allergy Unknown Verified 01/30/19 03:27 Reaction Details salmeterol Allergy Unknown Verified 01/30/19 03:27 [From Advair Diskus] Reaction Details Sulfa (Sulfonamide Allergy Unknown Verified 01/30/19 03:27 Antibiotics) Reaction Details Tetracyclines Allergy Unknown Verified 01/30/19 03:27 Reaction Details triamcinolone [From Azmacort] Allergy Unknown Verified 01/30/19 03:27 Reaction Details PMH/Surg Hx/FS Hx/Imm Hx Previously Healthy: Yes Endocrine/Hematology History: Reports: Hx Thyroid Disease - HASHIMOTOS, Hx Anemia - CHRONIC HEMOLYTIC ANEMIA Denies: Hx Anticoagulant Therapy, Hx Diabetes Cardiovascular History: Reports: Hx Coronary Artery Disease, Hx Hypercholesterolemia, Hx Hypertension Denies: Hx Pacemaker/ICD Comment Only: Other Cardiovascular Problems/Disorders - HX OF MASTECTOMY Respiratory History: Reports: Hx Chronic Bronchitis - not chronic, Hx Chronic Obstructive Pulmonary Disease (COPD) - CAD, Hx Pneumonia, Other Respiratory Problems/Disorders - emphysema Denies: Hx Asthma GI History: Reports: Hx Gastroesophageal Reflux Disease, Hx Hiatal Hernia, Hx Irritable Bowel, Hx Obstructive Bowel, Other GI Disorders - small bowel obstruction History: Reports: Hx Acute Renal Failure, Hx Kidney Stones, Hx Renal Disease - 1 KIDNEY, Other Problems/Disorders - renal disease Musculoskeletal History: Reports: Hx Arthritis - OSTEOARTHRITIS, Hx Osteoporosis Denies: Hx Rheumatoid Arthritis Sensory History: Reports: Hx Cataracts Denies: Hx Contacts or Glasses, Hx Legally Blind, Hx Deafness, Hx Hearing Aid Opthamlomology History: Reports: Hx Cataracts Denies: Hx Contacts or Glasses, Hx Legally Blind EENT History: Denies: Hx Deafness Neurological History: Reports: Hx Headaches - WITH ELEVATION IN BLOOD PRESSURE, Hx Migraine - WITH VALSALVAR MOVEMENT, Hx Seizures - BI-TEMPORAL INCOMPLETE FOCAL SEIZURES Psychiatric History: Reports: Hx Anxiety Denies: Hx Panic Disorder - Cancer History Cancer Type, Location and Year: BREAST CA Hx Chemotherapy: Yes - 1990 Hx Radiation Therapy: No - Surgical History Surgical History: Yes Surgery Procedure, Year, and Place: CARDIAC CATHS (NO STENTS);. LEFT MASTECTOMY ;. LEFT LYMPH NODES REMOVED;. SPLENECTOMY;. RIGHT NEPHRECTOMY;. RIGHT KNEE SCOPING ([place]);. BILATERAL URETER REPAIRS A CHILD;. BLADDER REPAIR ( [place]);. TONSILS AND APPENDECTOMY YOUNG CHILD;. HEMATOMA REMOVED FROM SPINE;. UTERINE FIBROIDS REMOVED WITH D&CX3;. LITHOTRIPSY; Hx Anesthesia Reactions: Yes - Immunization History Date of Tetanus Vaccine: utd Date of Influenza Vaccine: fall 2017 Infectious Disease History: No - Family History Known Family History: Positive: Respiratory Disease - COPD - Social History Occupation: Retired Lives: Alone Alcohol Use: None Hx Substance Use: No Substance Use Type: Reports: None Hx Tobacco Use: Yes Smoking Status (MU): Heavy Every Day Tobacco Smoker Type: Cigarettes Amount Used/How Often: 1 ppd 50 yrs Length of Time of Smoking/Using Tobacco: 50 years Have You Smoked in the Last Year: Yes Review of Systems Negative: Fever Positive: Chest Pain Positive: Abdominal Pain, Diarrhea, Nausea Negative: Myalgia Positive: Headache All Other Systems Reviewed And Are Negative: Yes Physical Exam - Summary Physical Exam Summary: Appearance: Well-appearing, Well-nourished, lying in bed comfortably. Elderly woman in no acute distress laying on stretcher, appears somewhat pale Skin: Warm, dry, no obvious rash Eyes: sclera anicteric, conjunctiva somewhat pale. ENT: mucous membranes moist, pharynx appears normal Neck: Supple, nontender Respiratory: Clear to auscultation, no signs of respiratory distress Cardiovascular: Normal S1, S2. No murmurs. Normal distal pulses in tibial and radial bilaterally. Abdomen: Soft, nontender, normal active bowel sounds present Musculoskeletal: Normal, Strength/ROM Intact Neurological: A&Ox3, awake and alert, mentation is normal, speech is fluent and appropriate Psychiatric: affect is normal, does not appear anxious or depressed Triage Information Reviewed: Yes Vital Signs Reviewed: Yes Procedures - Sedation Patient Received Moderate/Deep Sedation with Procedure: No Diagnostics - Laboratory Result Diagrams: 01/30/19 03:45 01/30/19 03:45 Lab Statement: Any lab studies that have been ordered have been reviewed, and results considered in the medical decision making process. - EKG 03:35 Cardiac Rate: NL - 76 BPM EKG Rhythm: Sinus Rhythm ST Segment: Normal Ectopy: None Summary of EKG Findings: EKG at 03:35 shows 76 BPM with normal sinus rhythm supraventricular bigeminy, no STEMI, P waves, QRS complex, and T waves are within normal limits, T waves and intervals are normal, no ischemic changes. This is a an otherwise normal EKG. Reviewed and interpreted by ED physician. Re-Evaluation - Re-Evaluation First Re-Evaluation Time: 05:37 Change: Improved Comment: At 05:37, patient reports no further diarrhea. Patient is thirsty and will give her some water. Abdominal Pain Fem Course/Dx - Course Course Of Treatment: Patient is an 83 y/o F presenting to the ED via EMS for a chief complaint of abdominal pain. Patient describes the abdominal pain as cramps. Patient also admits diarrhea and nausea that began at midnight on and has worsened since initial onset. Patient also admits chest pain and headache. Patient denies fever or myalgia. Patient has had several abdominal surgeries in the past, including an appendectomy. Patient has a PMHx of anemia and aortic stenosis. Patient had an appointment to see Dr. Sims and had bloodwork performed at that time, but is not currently receiving any treatments. Patient lives alone. On exam, elderly woman in no acute distress lying on the stretcher, appears somewhat pale, conjunctiva somewhat pale. In the ED course, patient was given ondansetron 8 mg IV and fluids. EKG at 03:35 shows 76 BPM with normal sinus rhythm supraventricular bigeminy, no STEMI, P waves, QRS complex, and T waves are within normal limits, T waves and intervals are normal, no ischemic changes. This is a an otherwise normal EKG. At 05:37, patient reports no further diarrhea. Patient is thirsty and will give her some water. Patient will be discharged with a diagnosis of acute diarrhea. Follow up with PCP in 2 days. - Diagnoses Provider Diagnoses: Acute diarrhea Discharge ED - Sign-Out/Discharge Documenting (check all that apply): Patient Departure - Discharge - Discharge Plan Condition: Improved Disposition: HOME Patient Education Materials: Acute Diarrhea (ED) Referrals: Nancy Burciaga MD [Primary Care Provider] - Additional Instructions: You can take OTC immodium if the diarrhea recurs. I have prescribed zofran odt for the nausea. Stick to a light diet today. - Billing Disposition and Condition Condition: IMPROVED Disposition: Home - Attestation Statements Document Initiated by Scribe: Yes Documenting Scribe: Kristan Rios Provider For Whom Scribe is Documenting (Include Credential): Brandin Anders MD Scribe Attestation: I, Kristan Rios, scribed for Brandin Anders MD on 02/02/19 at 0310. Scribe Documentation Reviewed: Yes Provider Attestation: The documentation as recorded by the scribe, Kristan Rios accurately reflects the service I personally performed and the decisions made by me, Brandin Anders MD Status of Scribe Document: Viewed
[2019-01-30] MEDS ORDERED: NS 0.9% 1000 ML** 1,000 ML IV ONE (03:22)
[2019-01-30] MEDS ORDERED: Ondansetron INJ* 2 MG/ML VIAL IV ONE (03:22)
[2019-01-30 03:52] LABS: ABS Basophils 0.1 10^3/ul (0-0.2); ABS Eosinophils 0.2 10^3/ul (0-0.6); ABS Lymphocytes 1.4 10^3/ul (1.0-4.8); ABS Monocytes 1.2 10^3/ul (0-0.8); ABS Neutrophils 13.4 10^3/ul (1.5-7.7); Eosinophil % 1.3 %; Hematocrit 34 % (35-47); Lymphocyte % 8.3 %; Mean Corpuscular HGB Conc 32 g/dL (31-36); Mean Corpuscular Hemoglobin 29 pg (27-31); Mean Corpuscular Volume 90 fL (80-97); Mean Platelet Volume 8.4 fL (7.4-10.4); Platelet Count 245 10^3/uL (150-450); Red Blood Count 3.84 10^6 /uL (3.70-4.87); Red Cell Distribution Width 17 % (10-15); White Blood Count 16.2 10^3/uL (3.5-10.8)
--- OUTSIDE RECORDS SUMMARY | 2019-01-30 04:08 | XMS REPORT | Continuity of Care Document ---
:1935 External Reference #:[id number] Author Name Jennifer Brown M.D. (transmitted by agent of provider Yusra Mir) Address [address] [place] [address] [place] [address] Care Team Providers Name Role Phone Nancy Burciaga MD - Internal Medicine Care Team Information Clinical Nursing Professor [phone] Problems Active Problems Provider Date Headache Maxwell Díaz M.D. 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 Onset: 08/20/2016 the pelvic region and thigh Trochanteric bursitis Jennifer Brown M.D. Onset: 08/20/2016 Localized, primary osteoarthritis Jennifer Brown M.D. Onset: 09/24/2016 Dyspnea Bernard Lees M.D., [facility] Onset: 09/29/2016 Aortic valve disorder Bernard Lees M.D., [facility], [facility] Onset: 08/25/2017 Social History Type Date Description Comments Sex Unknown Tobacco Use Start: Unknown current cigarette smoker ETOH Use Denies alcohol use Recreational Drug Use Denies Drug Use Tobacco Use Start: Unknown Patient is a current Occasionally will smoker, smokes some share 1-2 puffs with days other people Smoking Status Reviewed: 01/01/19 Patient is a current Occasionally will smoker, smokes some share 1-2 puffs with days other people Exercise Type/Frequency Exercises sporadically Allergies, Adverse Reactions, Alerts Active Allergies Reaction Severity Comments Date Sulfa Antibiotics swollen togue 01/24/2013 Iodinated Diagnostic Agents Anaphylaxis 01/24/2013 Tetracycline 01/24/2013 Dilantichristianne pruitt 01/24/2013 Depakote 01/14/2015 Zyprexa 01/14/2015 Carbamazapine 08/20/2016 Phenytoin 08/20/2016 Prednisone 07/24/2018 Medications Active Medications SIG Qnty Indications Ordering Date Provider Lipitor 1 tab by mouth 30tabs Selene Esteban, 12/11/2018 40mg Tablets every day at MEDICAL LOGISTICS SPECIALIST bedtime Incruse Ellipta inhale one puff by Unknown 09/12/2018 mouth every day 62.5mcg/Inh Aerosol Ipratropium 1 vial in nebulizer 180ml [facility], 01/26/2018 Powell/Albuterol every 6 hours prn MD Sulfate 0.5-2.5(3)mg/3ML Solution Nebulizer 1 unit nebulization 1units J44.9 [facility], 12/08/2017 Device with albuterol MD every 6 hours and as needed Gabapentin 2 caps po 2 times 90caps Unknown 03/22/2017 300mg daily, morning and Capsules bed. 1 cap in the noon and evening Flutter use as instructed 1units J44.9 Carmella Roderick, 09/16/2014 Device twice a day Imodium A-D 1 capsule after Unknown 2mg each loose bm Capsules Levoxyl take 1 tablet every Unknown 25mcg Tablets morningon an empty stomach Lidocaine apply 1 patch to Unknown 5% Patches affected area once daily remove after 12 hours prn Hydrocortisone apply a small Unknown 2.5% amount to the Cream affected area daily Genteal Severe apply into affected Unknown 0.3% Gel eye if needed Vitamin D3 Ultra one by mouth once Unknown Potency monthly [id number] Tablets Nystatin 5cc swish and spit Unknown [id number]/ML 4 times a day Suspension Metamucil take 1g orally 4x Unknown daily Mirtazapine 1 every evening as Unknown 7.5mg needed Tablets Colace 1 tab every day as Unknown 100mg Capsules needed for constipation Tylenol Extra 2 tabs by mouth Unknown Strength twice a day as 500mg Tablets needed MDD 3 grams Vitamin C 1 by mouth every Unknown 500mg M,W,F Chewtabs Mucinex DM 1 by mouth twice a Unknown 30-600mg day Tablets ER 12HR Iron 1 by mouth every Unknown 325(65Fe) mg day Tablets HM Cetirizine HCL 1 by mouth every Unknown 10mg day Tablets Nicotine Transdermal use daily. Unknown System Step 2 14mg/24HR Patches 24HR Omeprazole 1 by mouth every Unknown 40mg day Capsules DR Daily Ava 1 tab daily Unknown Tablets Folic Acid 1 tab daily Unknown 1mg Tablets Systane Instill 1 Drop In Unknown 0.6% Solution Each Eye 3-4 Times A Day Butalbital/Acetaminop 1 po bid prn Unknown hen/Caffeine headache max 3d/wk 50-325-40mg Capsules Vitamin B12 1 by mouth every Unknown 500mcg day Tablets Miralax 17 gm every day as 1mon Unknown [id number] Packet needed Hydrocodone-Acetamino 1 by mouth tid prn. 30tabs Unknown phen 5-325mg Tablets Probiotic Gummies 1 by mouth twice [...] by mouth every Unknown day 10mg Tablets Fluticasone 1 sprays each Unknown Propionate nostril daily 50mcg/Act Suspension Ondansetron HCL take 1 by mouth as Unknown 8mg need 1-2 x per day Tablets for nausea Mirtazapine 1 by mouth every Unknown 15mg night at bedtime Tablets History Medications Sodium Chloride inhale 1 vial via 720units J47.9 Carmella Vaughn 2018 - nebulizer three 11/22/2018 3% Nebulizer times a day for secretions Medications Administered in Office Medication SIG Qnty Indications Ordering Provider Date Synvisc Or Synvisc-One Jennifer Brown M.D. 01/01/2019 Injection 1 MG Injection Synvisc Or Synvisc-One Jennifer Brown M.D. 01/01/2019 Injection 1 MG Injection Depomedrol 40MG Jennifer Brown M.D. 07/25/2017 Injection [...] Depomedrol 80MG Enid Aguilar M.D. 11/29/2013 Injection Depomedrol 80MG Enid Aguilar M.D. 03/29/2013 Injection Immunizations CPT Code Status Date Vaccine Lot # [id number] Given 06/18/2014 Fluvirin Im 3Yrs And Older Vital Signs Date Vital Result Comment 01/01/2019 3:49pm Height 61 inches 5'1" Weight 114.00 lb Heart Rate 64 /min BP Systolic 102 mmHg BP Diastolic 64 mmHg Respiratory Rate 14 /min Pain Level 3 BMI (Body Mass Index) 21.5 kg/m2 12/28/2018 1:58pm Height 61 inches 5'1" Weight 119.50 lb with shoes Heart Rate 60 /min BP Systolic Sitting 136 mmHg ule reg cuff BP Diastolic Sitting 56 mmHg ule reg cuff O2 % BldC Oximetry 982 % BMI (Body Mass Index) 22.6 kg/m2 Ejection Fraction 50-60% Echo 12/12/18 Results Test Date Facility Test Result H/L Range Note Comp Metabolic 12/08/2018 [facility] Sodium 138 mmol/L Normal 135-145 Panel [address] [place] [address] [phone] Potassium 4.5 mmol/L Normal 3.5-5.0 Chloride 99 mmol/L Low 101-111 Co2 Carbon Dioxide 34 mmol/L High 22-32 Anion Gap 5 mmol/L Normal 2-11 Glucose 142 mg/dL High 70-100 Blood Urea Nitrogen 26 mg/dL High 6-24 Creatinine 0.98 mg/dL High 0.51-0.95 BUN/Creatinine Ratio 26.5 High 8-20 Calcium 9.0 mg/dL Normal 8.6-10.3 Total Protein 6.4 g/dL Normal 6.4-8.9 Albumin 3.7 g/dL Normal 3.2-5.2 Globulin 2.7 g/dL Normal 2-4 Albumin/Globulin Ratio 1.4 Normal 1-3 Total Bilirubin 0.20 mg/dL Normal 0.2-1.0 Alkaline Phosphatase 174 U/L High 34-104 Alt 20 U/L Normal 7-52 Ast 19 U/L Normal 13-39 Egfr Non- 54.1 >60 Egfr 65.4 >60 1 Lipid Profile 12/08/2018 [facility] Triglycerides 167 mg/dL 2 (Trig/Chol/HDL) [address] [place] [address] [phone] Cholesterol 143 mg/dL 3 HDL Cholesterol 87.4 mg/dL 4 LDL Cholesterol 22 mg/dL 5 Laboratory test 12/08/2018 [facility] Creatine 41 U/L Normal 10-[address] Kinase(CK) [place] [address] [phone] CBC Auto Diff 12/08/2018 [facility] White Blood 12.2 High 3.5- 10.[address] Count 10^3/[place] [address] [phone] Red Blood Count 3.99 10^6/uL Normal 3.70-4.87 Hemoglobin 11.7 g/dL Low 12.0-16.0 Hematocrit 35 % Normal 35-47 Mean Corpuscular Volume 88 fL Normal 80-97 Mean Corpuscular Hemoglobin 29 pg Normal 27-31 Mean Corpuscular HGB Conc 33 g/dL Normal 31-36 Red Cell Distribution Width 18 % High 10-15 Platelet Count 268 10^3/uL Normal 150-450 Mean Platelet Volume 9.1 fL Normal 7.4-10.4 Abs Neutrophils 7.1 10^3/uL Normal 1.5-7.7 Abs Lymphocytes 3.4 10^3/uL Normal 1.0-4.8 Abs Monocytes 1.0 10^3/uL High 0-0.8 Abs Eosinophils 0.6 10^3/uL Normal 0-0.6 Abs Basophils 0.2 10^3/uL Normal 0-0.2 Abs Nucleated RBC 0.0 10^3/uL Granulocyte % 57.9 % Lymphocyte % 27.6 % Monocyte % 8.4 % Eosinophil % 4.8 % Basophil % 1.3 % Nucleated Red Blood Cells % 0.1 Lipid Panel - 11/23/2018 [facility] Creatine Kinase(CK) <pending > [facility] [address] [place] [address] [phone] 1 Because ethnic data is not always readily [...] 15-29 5 Kidney failure <15 (or dialysis) 2 Desirable: <150 Borderline High: 150-199 High: 200-499 Very High: >500 3 Desirable: <200 Borderline High: 200-239 High: >239 4 Low: <40 Desirable: 40-60 High: >60 5 Desirable: <100 Near Optimal: 100-129 Borderline High: 130-159 High: 160-189 Very High: >189 Procedures Date Code Description Status 01/01/201927726 Inject/Drain Joint/Bursa Major W/O US Completed 01/01/2019 Inject/Drain Joint/Bursa Major W/O US Completed 12/12/2018 25844 ECHO Transthoracic, Real-Time 2D With Doppler And Color Completed Flow 12/12/2018 38901 ECHO Transthoracic, Real-Time 2D With Doppler And Color Completed Flow 12/01/201877821 Inject/Drain Joint/Bursa Major W/O US Completed 08/01/2018 40173 ECHO Transthorasic Realtime 2D W Doppler & Color Flow Hosp Completed Medical Devices Description No Information Available Encounters Type Date Location Provider Dx Diagnosis [facility] I35.0 Nonrheumatic aortic 2:00p MEDICAL LOGISTICS SPECIALIST (valve) stenosis I25.10 Athscl heart disease of [place] coronary artery w/o ang pctrs E78.5 Hyperlipidemia, unspecified N18.9 Chronic kidney disease, unspecified Office Visit 11/23/2018 3:00p [facility] Selene Esteban, I35.0 Nonrheumatic MEDICAL LOGISTICS SPECIALIST aortic (valve) stenosis I25.10 Athscl heart disease of [place] coronary artery w/o ang pctrs D64.9 Anemia, unspecified I34.0 Nonrheumatic mitral (valve) insufficiency Office Visit 10/20/2018 10:45a [facility] Evangelista Jhaveri, MEDICAL LOGISTICS SPECIALIST R51 Headache G25.0 Essential tremor M54.2 Cervicalgia Office Visit 08/10/2018 8:46a Nilsa Landaverde J44.1 Chronic Assoc,tate Barron M.D. obstructive Hospitalists pulmonary disease w (acute) exacerbation I50.31 Acute diastolic (congestive) heart failure A41.9 Sepsis, unspecified organism I11.0 Hypertensive heart disease with heart failure J96.91 Respiratory failure, unspecified with hypoxia J96.92 Respiratory failure, unspecified with hypercapnia Z72.0 Tobacco use Z99.81 Dependence on supplemental oxygen Office Visit 08/09/2018 8:46a Nilsa Arias96.01 Acute respiratory Assoc,tate Barron M.D. failure with Hospitalists hypoxia J44.0 Chr obstructive pulmon disease with (acute) lower resp infct Office Visit 08/08/2018 8:45a Nilsa Arias96.01 Acute respiratory Assoc,tate Barron M.D. failure with Hospitalists hypoxia J44.0 Chr obstructive pulmon disease with (acute) lower resp infct Office Visit 08/07/2018 8:45a Nilsa Arias96.01 Acute respiratory Assoc,tate Barron M.D. failure with Hospitalists hypoxia J44.0 Chr obstructive pulmon disease with (acute) lower resp infct Office Visit 08/06/2018 8:44a [place] [facility] J96.01 Acute respiratory Assoc,tate HAYS failure with Hospitalists hypoxia J44.0 Chr obstructive pulmon disease with (acute) lower resp infct Office Visit 08/05/2018 8:43a [place] [facility] J96.02 Acute respiratory Assoc,tate HAYS failure with Hospitalists hypercapnia J44.0 Chr obstructive pulmon disease with (acute) lower resp infct Office Visit 08/04/2018 8:43a [place] [facility] J96.02 Acute respiratory Assoc,tate HAYS failure with Hospitalists hypercapnia J44.0 Chr obstructive pulmon disease with (acute) lower resp infct J18.9 Pneumonia, unspecified organism I50.31 Acute diastolic (congestive) heart failure Office Visit 08/03/2018 8:[facility]a [facility] A41.9 Sepsis, Assoc,tate Sy M.D. unspecified Hospitalists organism J96.01 Acute respiratory failure with hypoxia J18.9 Pneumonia, unspecified organism J44.0 Chr obstructive pulmon disease with (acute) lower resp infct Office Visit 08/02/2018 8:42a [facility] Abrahan Bonilla J96.02 Acute respiratory MD failure with hypercapnia J44.0 Chr obstructive pulmon disease with (acute) lower resp infct J81.0 Acute pulmonary edema Office Visit 08/02/2018 8:42a [facility] A41.9 Sepsis, Assoc,tate Sy M.D. unspecified Hospitalists organism J44.0 Chr obstructive pulmon disease with (acute) lower resp infct J18.9 Pneumonia, unspecified organism Office Visit 08/01/2018 8:41a Intens[facility]ists Abrahan Bonilla J96.02 Acute respiratory MD failure with hypercapnia J81.0 Acute pulmonary edema J44.1 Chronic obstructive pulmonary disease w (acute) exacerbation Office Visit 08/01/2018 [facility] E87.1 Hypo-osmolality and 8:41a Services Of John Ochoa MD hyponatremia J44.0 Chr obstructive pulmon disease with (acute) lower resp infct I50.9 Heart failure, unspecified Office Visit 08/01/2018 8:40a [facility] A41.9 Sepsis, Assoc,tate Sy M.D. unspecified Hospitalists organism J96.22 Acute and chronic respiratory failure with hypercapnia J96.21 Acute and chronic respiratory failure with hypoxia J44.0 Chr obstructive pulmon disease with (acute) lower resp infct Office Visit 07/31/2018 8:40a [facility] A41.9 Sepsis, Assoc,tate Sy M.D. unspecified Hospitalists organism J96.01 Acute respiratory failure with hypoxia J44.1 Chronic obstructive pulmonary disease w (acute) exacerbation J18.9 Pneumonia, unspecified organism [facility] A[facility] Sepsis, 8:39a Assoc,pc AFSANEH Diaz unspecified Hospitalists organism E87.1 Hypo-osmolality and hyponatremia R06.02 Shortness of breath Office Visit 07/24/2018 1:45p Pulmonology And Carmella J44.9 Chronic Sleep Services Of MD Roderick obstructive Clinical Nursing Intern pulmonary disease, unspecified F17.210 Nicotine dependence, cigarettes, uncomplicated Assessments Date Code Description Provider 01/01/2019 M25.562 Pain in left knee Jennifer Brown M.D. 01/01/2019 M25.561 Pain in right knee Jennifer Brown M.D. 01/01/2019 M25.462 Effusion, left knee Jennifer Brown M.D. 01/01/2019 M25.461 Effusion, right knee Jennifer Brown M.D. 01/01/2019 M17.0 Bilateral primary osteoarthritis of Jennifer Brown M.D. knee 12/28/2018 I35.0 Nonrheumatic aortic (valve) stenosis Selene Esteban NP 12/28/2018 I25.10 Atherosclerotic heart disease of Selene AFSANEH Esteban [place] coronary artery without angina pectoris 12/28/2018 E78.5 Hyperlipidemia, unspecified Selene Esteban NP 12/28/2018 N18.9 Chronic kidney disease, unspecified Selene Esteban NP 12/12/2018 I35.0 Nonrheumatic aortic (valve) stenosis Katherine Jacobsen M.D. 12/12/2018 I35.0 Nonrheumatic aortic (valve) stenosis [place] [facility] 12/12/2018 I25.10 Atherosclerotic heart disease of [place] [facility] Schedule [place] coronary artery without angina pectoris 12/12/2018 I34.0 Nonrheumatic mitral (valve) [place] [facility] insufficiency 12/01/2018 M25.562 Pain in left knee Jennifer Brown M.D. 12/01/2018 M25.561 Pain in right knee Jennifer Brown M.D. 12/01/2018 M25.462 Effusion, left knee Jennifer Brown M.D. 12/01/2018 M25.461 Effusion, right knee Jennifer Brown M.D. 12/01/2018 M17.0 Bilateral primary osteoarthritis of Jennifer Brown M.D. knee 12/01/2018 M70.62 Trochanteric bursitis, left hip Jennifer Brown M.D. 12/01/2018 M70.61 Trochanteric bursitis, right hip Jennifer Brown M.D. 12/01/2018 M25.552 Pain in left hip Jennifer Brown M.D. 12/01/2018 M25.551 Pain in right hip Jennifer Brown M.D. 12/01/2018 M16.0 Bilateral primary osteoarthritis of Jennifer Brown M.D. hip 11/23/2018 I35.0 [facility]rheumatic [facility]valve) [facility] MEDICAL LOGISTICS SPECIALIST 11/23/2018 I25.10 Atherosclerotic heart disease of [facility], MEDICAL LOGISTICS SPECIALIST [place] coronary artery without angina pectoris 11/23/2018 D64.9 Anemia, unspecified Selene Eulalia, AFSANEH 11/23/2018 I34.0 Nonrheumatic mitral (valve) Selene Esteban NP insufficiency 10/20/2018 R51 Headache Evangelista Jhaveri, AFSANEH 10/20/2018 G25.0 Essential tremor Evangelista Jhaveri, AFSANEH 10/20/2018 M54.2 Cervicalgia Evangelista Jhaveri, AFSANEH 08/10/2018 J44.1 Chronic obstructive pulmonary disease Akhil Barron M.D. w (acute) exacerbation 08/10/2018 I50.31 Acute diastolic (congestive) heart Akhil Barron M.D. failure 08/10/2018 A41.9 Sepsis, unspecified organism Akhil Barron M.D. 08/10/2018 I11.0 Hypertensive heart disease with heart Akhil Barron M.D. failure 08/10/2018 J96.91 Respiratory failure, unspecified with Akhil Barron M.D. hypoxia 08/10/2018 J96.92 Respiratory failure, unspecified with Akhil Barron M.D. hypercapnia 08/10/2018 Z72.0 Tobacco use Akhil Barron M.D. 08/10/2018 Z99.81 Dependence on supplemental oxygen Akhil Barron M.D. 08/09/2018 J96.01 Acute respiratory failure with hypoxia Akhil Barron M.D. 08/09/2018 J44.0 Chronic obstructive pulmon disease w Akhil Barron M.D. acute lower resp infct 08/08/2018 J96.01 Acute respiratory failure with hypoxia Akhil Barron M.D. 08/08/2018 J44.0 Chronic obstructive pulmon disease w Akhil Barron M.D. acute lower resp infct 08/07/2018 J96.01 Acute respiratory failure with hypoxia Akhil Barron M.D. 08/07/2018 J44.0 Chronic obstructive pulmon disease w Akhil Barron M.D. acute lower resp infct 08/06/2018 J96.01 Acute respiratory failure with hypoxia Kuldeep Jc MD 08/06/2018 J44.0 Chronic obstructive pulmon disease w Kuldeep Jc MD acute lower resp infct 08/05/2018 J96.02 Acute respiratory failure with Kuldeep Jc MD hypercapnia 08/05/2018 J44.0 Chronic obstructive pulmon disease w Kuldeep Jc MD acute lower resp infct 08/04/2018 J96.02 Acute respiratory failure with Kuldeep Jc MD hypercapnia 08/04/2018 J44.0 Chronic obstructive pulmon disease w Kuldeep Jc MD acute lower resp infct 08/04/2018 J18.9 Pneumonia, unspecified organism Kuldeep Jc MD 08/04/2018 I50.31 Acute diastolic (congestive) heart Kuldeep Jc MD failure 08/03/2018 A41.9 Sepsis, unspecified organism Vandana Sy M.D. 08/03/2018 J96.01 Acute respiratory failure with hypoxia Vandana Sy M.D. 08/03/2018 J18.9 Pneumonia, unspecified organism Vandana Sy M.D. 08/03/2018 J44.0 Chronic obstructive pulmon disease w Vandana Sy M.D. acute lower resp infct 08/02/2018 J96.02 Acute respiratory failure with Abrahan Bonilla MD hypercapnia 08/02/2018 J44.0 Chronic obstructive pulmon disease w Abrahan Bonilla MD acute lower resp infct 08/02/2018 J81.0 Acute pulmonary edema Abrahan Bonilla MD 08/02/2018 A41.9 Sepsis, unspecified organism Vandana Sy M.D. 08/02/2018 J44.0 Chronic obstructive pulmon disease w Vandana Sy M.D. acute lower resp infct 08/02/2018 J18.9 Pneumonia, unspecified organism Vandana Sy M.D. 08/01/2018 E87.1 Hypo-osmolality and hyponatremia Martha Ochoa MD 08/01/2018 A41.9 Sepsis, unspecified organism Vandana Sy M.D. 08/01/2018 J44.0 Chronic obstructive pulmon disease w Martha Ochoa MD acute lower resp infct 08/01/2018 J96.02 Acute respiratory failure with Abrahan Bonilla MD hypercapnia 08/01/2018 I50.9 Heart failure, unspecified Martha Ochoa MD 08/01/2018 J96.22 Acute and chronic respiratory failure Vandana Sy M.D. with hypercapnia 08/01/2018 J96.21 Acute and chronic respiratory failure Vandana Sy M.D. with hypoxia 08/01/2018 J81.0 Acute pulmonary edema Abrahan Bonilla MD 08/01/2018 J44.0 Chronic obstructive pulmon disease w Vandana Sy M.D. acute lower resp infct 08/01/2018 I50.9 Heart failure, unspecified Robert Meeks M.D. 08/01/2018 J44.1 Chronic obstructive pulmonary disease Abrahan Bonilla MD w (acute) exacerbation 07/31/2018 A41.9 Sepsis, unspecified organism Vandana Sy M.D. 07/31/2018 J96.01 Acute respiratory failure with hypoxia Vandana Sy M.D. 07/31/2018 J44.1 Chronic obstructive pulmonary disease Vandana Sy M.D. w (acute) exacerbation 07/31/2018 J18.9 Pneumonia, unspecified organism Vandana Sy M.D. 07/30/2018 A41.9 Sepsis, unspecified organism Trish Diaz, MEDICAL LOGISTICS SPECIALIST 07/30/2018 E87.1 Hypo-osmolality and hyponatremia Trish Diaz, MEDICAL LOGISTICS SPECIALIST 07/30/2018 R06.02 Shortness of breath Trish Diaz, MEDICAL LOGISTICS SPECIALIST 07/24/2018 J44.9 Chronic obstructive pulmonary disease, Carmella Vaughn MD unspecified 07/24/2018 F17.210 Nicotine dependence, cigarettes, Carmella Vaughn MD uncomplicated Plan of Treatment Future Appointment(s):01/15/2019 1:45 pm - Jennifer [facility] M[facility]. at [facility]01/08/2019 2:30 pm - Jennifer Brown M.D. at [facility] at [id number]/26/2019 2:00 pm - Evangelista Jhaveri NP at [id number]/01/2019 - Jennifer Brown M.D.M25.562 Pain in left kneeFollow up:Follow up:M25.561 Pain in right kneeM25.462 Effusion, left kneeM25.461 Effusion, right kneeM17.0 Bilateral primary osteoarthritis of knee Functional Status Description No Information Available Mental Status Description No Information Available Referrals Refer to Dr Reason for Referral Status Appt Date [facility] Cervical[facility] [address] [place] [address] [phone] [facility] [place] [facility] for cervicalgia. [facility] [address] [place] [address] [phone]
--- OUTSIDE RECORDS SUMMARY | 2019-01-30 04:08 | XMS REPORT | Continuity of Care Document ---
:1935 External Reference #:[id number] Author Name Jennifer Brown M.D. (transmitted by agent of provider Yusra Mir) Address [address] [place] [address] [place] [address] Care Team Providers Name Role Phone Nancy Burciaga MD - Internal Medicine Care Team Information [employer] [phone] Problems Active Problems Provider Date Headache Maxwell Díaz M.D. 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 Onset: 08/20/2016 the pelvic region and thigh Trochanteric bursitis Jennifer Brown M.D. Onset: 08/20/2016 Localized, primary osteoarthritis Jennifer Brown M.D. Onset: 09/24/2016 Dyspnea Bernard Lees M.D., [facility] Onset: 09/29/2016 Aortic valve disorder Bernard Lees M.D., [facility], [facility] Onset: 08/25/2017 Social History Type Date Description Comments Sex Unknown Tobacco Use Start: Unknown current cigarette smoker ETOH Use Denies alcohol use Recreational Drug Use Denies Drug Use Tobacco Use Start: Unknown Patient is a current Occasionally will smoker, smokes some share 1-2 puffs with days other people Smoking Status Reviewed: 01/08/19 Patient is a current Occasionally will smoker, [...] Esteban, 12/11/2018 40mg Tablets every day at [employer] bedtime Incruse Ellipta inhale one puff by Unknown 09/12/2018 mouth every day 62.5mcg/Inh Aerosol Ipratropium 1 vial in nebulizer 180ml [facility], [place], 01/26/2018 [place]/Albuterol every 6 hours prn MD Sulfate 0.5-2.5(3)mg/3ML Solution Nebulizer 1 unit nebulization 1units J44.9 [facility], [place], 12/08/2017 Device with albuterol MD every 6 [...] one by mouth once Unknown Potency monthly 27136Mtde Tablets Nystatin 5cc swish and spit Unknown [id number]/ML 4 times a day Suspension Metamucil take [...] Older Vital Signs Date Vital Result Comment 01/08/2019 3:00pm Height 61 inches 5'1" Weight 114.00 lb Heart Rate 54 /min BP Systolic 134 mmHg BP Diastolic 74 mmHg Body Temperature 98.1 F Pain Level 5 BMI (Body Mass Index) 21.5 kg/m2 01/01/2019 3:49pm Height 61 inches 5'1" Weight 114.00 lb Heart Rate 64 /min BP Systolic 102 mmHg BP Diastolic 64 mmHg Respiratory Rate 14 /min Pain Level 3 BMI (Body Mass Index) 21.5 kg/m2 Results Test Date Facility Test Result H/L Range Note Comp Metabolic 12/08/2018 [facility] Sodium 138 mmol/L Normal 135-145 Panel [address] [place] [address] [phone] Potassium 4.5 mmol/L Normal 3.5-5.0 Chloride 99 [...] Egfr 65.4 >60 1 Lipid Profile 12/08/2018 [facility] Triglycerides 167 mg/dL 2 (Trig/Chol/HDL) [address] [place] [address] [phone] Cholesterol 143 mg/dL 3 HDL Cholesterol 87.4 mg/dL 4 LDL Cholesterol 22 mg/dL 5 Laboratory test 12/08/2018 [facility] Creatine 41 U/L Normal 10-[address] Kinase(CK) [place] [address] [phone] CBC Auto Diff 12/08/2018 [facility] White Blood 12.2 High 3.5- 10.[address] Count 10^3/[place] [address] [phone] Red Blood Count 3.99 10^6/uL Normal 3.70-4.87 [...] Cells % 0.1 Lipid Panel - 11/23/2018 [facility] Creatine Kinase(CK) <pending > [facility] [address] [place] [address] [phone] 1 Because ethnic data is not always [...] High: >189 Procedures Date Code Description Status 01/08/2019 Inject/Drain Joint/Bursa Major W/O US Completed 01/08/2019 Inject/Drain Joint/Bursa Major W/O US Completed 01/01/2019 Inject/Drain Joint/Bursa Major W/O US Completed 01/01/2019 Inject/Drain Joint/Bursa Major W/O US Completed 12/12/2018 26048 ECHO Transthoracic, Real-Time 2D With Doppler And Color Completed Flow 12/12/2018 79876 ECHO Transthoracic, Real-Time 2D With Doppler And Color Completed Flow 12/01/2018 Inject/Drain Joint/Bursa Major W/O US Completed 08/01/2018 26931 ECHO Transthorasic Realtime 2D W Doppler & Color Flow Hosp Completed Medical Devices Description No Information Available Encounters Type Date Location Provider Dx Diagnosis Office Visit 12/28/2018 [facility] Selene Esteban, I35.0 Nonrheumatic aortic 2:00p [employer]IAN (valve) stenosis I25.10 Athscl heart disease of [place] coronary artery w/o ang pctrs E78.5 Hyperlipidemia, unspecified N18.9 Chronic kidney disease, unspecified Office Visit 11/23/2018 3:00p [facility] Selene Esteban, I35.0 Nonrheumatic [employer] ENG[employer] TECHNICIAN aortic (valve) stenosis I25.10 Athscl heart disease of [place] coronary artery w/o ang pctrs D64.9 Anemia, unspecified I34.0 Nonrheumatic mitral (valve) insufficiency Office Visit 10/20/2018 10:45a [facility] Evangelista Damiandulce, [employer] ENGINEERING TECHNICIAN R51 Headache G25.0 Essential tremor M54.2 Cervicalgia [...] supplemental oxygen Office Visit 08/09/2018 8:46a Nilsa Landaverde J96.01 Acute respiratory Assoc,tate Barron M.D. failure with Hospitalists hypoxia J44.0 Chr obstructive pulmon disease with (acute) lower resp infct Office Visit 08/08/2018 8:45a Nilsa Arias96.01 Acute respiratory Assoc,tate Barron M.D. failure with Hospitalists hypoxia J44.0 Chr obstructive pulmon disease with (acute) lower resp infct Office Visit 08/07/2018 8:45a Nilsa Landaverde J96.01 Acute respiratory Assoc,tate Barron M.D. failure with Hospitalists hypoxia J44.0 Chr obstructive pulmon disease with (acute) lower resp infct Office Visit 08/06/2018 8:44a [facility] J96.01 Acute respiratory Assoc,tate HAYS failure with Hospitalists hypoxia J44.0 Chr obstructive pulmon disease with (acute) lower resp infct Office Visit 08/05/2018 8:43a [facility] Hugo Rooney96.02 Acute respiratory Assoc,tate HAYS failure with Hospitalists hypercapnia J44.0 Chr obstructive pulmon disease with (acute) lower resp infct Office Visit 08/04/2018 8:43a [facility] J96.02 Acute respiratory Assoc,tate HAYS failure with Hospitalists hypercapnia J44.0 Chr obstructive pulmon disease with (acute) lower resp infct J18.9 Pneumonia, unspecified organism I50.31 Acute diastolic (congestive) heart failure [facility]epsis, Assoc,tate Sy M.D. unspecified Hospitalists organism J96.01 Acute respiratory failure with hypoxia J18.9 Pneumonia, unspecified organism J44.0 Chr obstructive pulmon disease with (acute) lower resp infct Office Visit 08/02/2018 8:42a [facility] Hugo Bocanegra96.02 Acute respiratory MD failure with hypercapnia J44.0 Chr obstructive pulmon disease with (acute) lower resp infct J81.0 Acute pulmonary edema Office Visit 08/02/2018 8:42a [facility] A[facility].9 Sepsis, Assoc,tate Sy M.D. unspecified Hospitalists [...] Heart failure, unspecified Office Visit 08/01/2018 8:40a [facility] A[facility].9 Sepsis, Assoc,tate Sy M.D. unspecified Hospitalists organism J96.22 Acute and chronic respiratory failure with hypercapnia J96.21 Acute and chronic respiratory failure with hypoxia J44.0 Chr obstructive pulmon disease with (acute) lower resp infct Office Visit 07/31/2018 8:40a [facility] A[facility].9 Sepsis, Assoc,tate Sy M.D. unspecified Hospitalists organism J96.01 Acute respiratory failure with hypoxia J44.1 Chronic obstructive pulmonary disease w (acute) exacerbation J18.9 Pneumonia, unspecified organism Office Visit 07/30/2018 [facility] A41.9 Sepsis, 8:39a Assoc,tate Diaz NP unspecified Hospitalists organism E87.1 Hypo-osmolality and hyponatremia R06.02 Shortness of breath Office Visit 07/24/2018 1:45p Pulmonology And Carmella J44.9 [facility] Roderick obstructive Blow Down Helper pulmonary disease, unspecified F17.210 Nicotine dependence, cigarettes, uncomplicated Assessments Date Code Description Provider 01/08/2019 M25.562 Pain in left knee JenniferChristelle Jewell.DGene 01/08/2019 M25.561 Pain in right knee Christelle Ordonez.DGene 01/08/2019 M25.462 Effusion, left knee JenniferChristelle Jewell.DGene 01/08/2019 M25.461 Effusion, right knee Jennifer Christelle Brown.DGene 01/08/2019 M17.0 Bilateral primary osteoarthritis of Christelle Ordonez.DGene knee 01/01/2019 M25.562 Pain in left knee Jennifer Brown M.DGene 01/01/2019 M25.561 Pain in right knee Jennifer Brown M.D. 01/01/2019 M25.462 Effusion, left knee Jennifer Brown M.D. 01/01/2019 M25.461 Effusion, right knee Jenniferchan Brown M.D. 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 12/12/2018 I35.0 Nonrheumatic aortic (valve) stenosis [facility] Schedule 12/12/2018 I25.10 Atherosclerotic heart disease of [place] ECHO Schedule [place] coronary artery without angina pectoris 12/12/2018 I34.0 Nonrheumatic mitral (valve) [facility] Schedule insufficiency 12/01/2018 M25.562 Pain in left knee Jennifer StreetChristelle cardona.D. 12/01/2018 M25.561 Pain in right knee Jennifer StreetChristelle cardona.D. 12/01/2018 M25.462 Effusion, left knee Jennifer Streetke, M.D. 12/01/2018 M25.461 Effusion, right knee Jennifer Christelle Brown.D. 12/01/2018 M17.0 Bilateral primary osteoarthritis of Jennifer Christelle Brown.Tim knee 12/01/2018 M70.62 Trochanteric bursitis, left hip Jennifer Christelle Brown.D. 12/01/2018 M70.61 Trochanteric bursitis, right hip Jennifer Christelle Brown.D. 12/01/2018 M25.552 Pain in left hip Jennifer Streetke, M.D. 12/01/2018 M25.551 Pain in right hip Jennifer Kevin M.D. 12/01/2018 M16.0 Bilateral primary osteoarthritis of Jenniferchan Brown M.D. 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 w (acute) exacerbation 08/10/2018 I50.31 Acute diastolic (congestive) heart Akihl Barron M.D. failure 08/10/2018 A41.9 Sepsis, unspecified [...] M.D. 07/30/2018 A41.9 Sepsis, unspecified organism Trish Diaz NP 07/30/2018 E87.1 Hypo-osmolality and hyponatremia Trish Diaz NP 07/30/2018 R06.02 Shortness of breath Trish Diaz NP 07/24/2018 J44.9 Chronic obstructive pulmonary disease, Carmella Vaughn MD unspecified 07/24/2018 F17.210 Nicotine dependence, cigarettes, Carmella Vaughn MD uncomplicated Plan of Treatment Future Appointment(s):01/17/2019 1:45 pm - Jennifer Brown M.D. at [id number]/26/2019 2:00 pm - Evangelista Jhaveri NP at [id number]/08/2019 - Jennifer Brown M.D.M25.562 Pain in left kneeFollow up:Follow up: 1 weekM25.561 Pain in right kneeM25.462 Effusion, left kneeM25.461 Effusion, right kneeM17.0 Bilateral primary osteoarthritis of knee Functional Status Description No Information Available Mental Status Description No Information Available Referrals Refer to Reason for Referral Status Appt Date [facility] [address] [place] [address] [phone] [facility] for cervicalgia. [facility] [address] [place] [address] [phone]
--- OUTSIDE RECORDS SUMMARY | 2019-01-30 04:08 | XMS REPORT | Continuity of Care Document ---
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 Onset: 08/20/2016 the pelvic region and thigh Trochanteric bursitis Jennifer Brown M.D. Onset: 08/20/2016 Localized, primary osteoarthritis Jennifer Brown M.D. Onset: 09/24/2016 Dyspnea Bernard Lees M.D., [facility], [facility] Onset: 09/29/2016 Aortic valve disorder Bernard Lees M.D., [facility], [facility] Onset: 08/25/2017 Social History Type Date Description Comments Sex Unknown Tobacco Use Start: Unknown current cigarette smoker ETOH Use Denies alcohol use Recreational Drug Use Denies Drug Use Tobacco Use Start: Unknown Patient is a current Occasionally will smoker, smokes some share 1-2 puffs with days other people Smoking Status Reviewed: 12/28/18 Patient is a current Occasionally will smoker, [...] Esteban, 12/11/2018 40mg Tablets every day at OUTPLACEMENT CONSULTANT bedtime Incruse Ellipta inhale one puff by Unknown 09/12/2018 mouth every day 62.5mcg/Inh Aerosol Ipratropium 1 [facility]ial [facility] [place]/Albuterol every 6 hours prn MD Sulfate 0.5-2.5(3)mg/3ML Solution Nebulizer 1 unit nebulization 1units J44.9 [facility], 12/08/2017 Device with albuterol MD every [...] one by mouth once Unknown Potency monthly 54756Nylh Tablets Nystatin 5cc swish and spit Unknown [id number]/ML 4 times a day Suspension Metamucil take [...] Older Vital Signs Date Vital Result Comment 12/28/2018 1:58pm Height 61 inches 5'1" Weight 119.50 lb with shoes Heart Rate 60 /min BP Systolic Sitting 136 mmHg ule reg cuff BP Diastolic Sitting 56 mmHg ule reg cuff O2 % BldC Oximetry 982 % BMI (Body Mass Index) 22.6 kg/m2 Ejection Fraction 50-60% Echo 12/12/18 12/01/2018 1:41pm Height 61 inches 5'1" Weight 114.00 lb Heart Rate 63 /min BP Systolic 108 mmHg BP Diastolic 80 mmHg Body Temperature 98.7 F Pain Level 8 BMI (Body Mass Index) 21.5 kg/m2 Results Test Date Facility Test Result H/L Range Note Comp Metabolic 12/08/2018 [facility] Sodium 138 mmol/L Normal 135-145 Panel [address] [place], [place] [id number] [phone] Potassium 4.5 mmol/L Normal 3.5-5.0 Chloride 99 [...] Egfr 65.4 >60 1 Lipid Profile 12/08/2018 [facility] Triglycerides 167 mg/dL 2 (Trig/Chol/HDL) [address] [place] [address] [phone] Cholesterol 143 mg/dL 3 HDL Cholesterol 87.4 mg/dL 4 LDL Cholesterol 22 mg/dL 5 Laboratory test 12/08/2018 [facility] Creatine 41 U/L Normal 10-[address] Kinase(CK) [place] [address] [phone] CBC Auto Diff 12/08/2018 [facility] White Blood 12.2 High 3.5- 10.[address] Count 10^3/[place] [address] [phone] Red Blood Count 3.99 10^6/uL Normal 3.70-4.87 [...] Cells % 0.1 Lipid Panel - 11/23/2018 [facility] Creatine Kinase(CK) <pending > [facility] [address] [place] [address] [phone] 1 Because ethnic data is not always [...] High: >189 Procedures Date Code Description Status 12/12/2018 93024 ECHO Transthoracic, Real-Time 2D With Doppler And Color Completed Flow 12/12/2018 02320 ECHO Transthoracic, Real-Time 2D With Doppler And Color Completed Flow 12/01/2018 79391 Inject/Drain Joint/Bursa Major W/O US Completed 08/01/2018 00233 ECHO Transthorasic Realtime 2D W Doppler & Color Flow Hosp Completed Medical Devices Description No Information Available Encounters Type Date Location Provider Dx Diagnosis Office Visit 11/23/2018 [facility] Selene Esteban, I35.0 Nonrheumatic aortic 3:00p OUTPLACEMENT CONSULTANT (valve) stenosis I25.10 Athscl heart disease of [place] coronary artery w/o ang pctrs D64.9 Anemia, unspecified I34.0 Nonrheumatic mitral (valve) insufficiency Office Visit 10/20/2018 10:45a [facility] Evangelista Jhaveri NP R51 Headache G25.0 Essential tremor M54.2 Cervicalgia Office Visit 08/10/2018 8:46a [facility] Akhil J44.1 Chronic Assoc,tate Barron M.D. obstructive Hospitalists pulmonary disease w (acute) exacerbation I50.31 Acute diastolic (congestive) heart failure A41.9 Sepsis, unspecified organism I11.0 Hypertensive heart disease with heart failure J96.91 Respiratory failure, unspecified with hypoxia J96.92 Respiratory failure, unspecified with hypercapnia Z72.0 Tobacco use Z99.81 Dependence on supplemental oxygen Office Visit 08/09/2018 8:46a [facility] Akhil J96.01 Acute respiratory Assoc, Bisi Barron. failure with Hospitalists hypoxia J44.0 Chr obstructive pulmon disease with (acute) lower resp infct Office Visit 08/08/2018 8:45a [facility] Akhil J96.01 Acute respiratory Assoc, Bisi Barron. failure with Hospitalists hypoxia J44.0 Chr obstructive pulmon disease with (acute) lower resp infct Office Visit 08/07/2018 8:45a [facility] Akhil J96.01 Acute respiratory Assoc, Bisi Barron. failure with Hospitalists hypoxia J44.0 Chr obstructive pulmon disease with (acute) lower resp infct Office Visit 08/06/2018 8:44a [facility] Kuldeep Jc J96.01 Acute respiratory Assoc,pc MD failure with Hospitalists hypoxia J44.0 Chr obstructive pulmon disease with (acute) lower resp infct Office Visit 08/05/2018 8:43a [facility] Kuldeep Jc J96.02 Acute respiratory Assoc,pc MD failure with Hospitalists hypercapnia J44.0 Chr obstructive pulmon disease with (acute) lower resp infct Office Visit 08/04/2018 8:43a [facility] Kuldeep Jc J96.02 Acute respiratory Assoc,pc MD failure with Hospitalists hypercapnia J44.0 Chr obstructive pulmon disease with (acute) lower resp infct J18.9 Pneumonia, unspecified organism I50.31 Acute diastolic (congestive) heart failure Office Visit 08/03/2018 8:42a [facility]der Moeller1.9 Sepsis, Assoc,tate Sy M.D. unspecified Hospitalists organism J96.01 Acute respiratory failure with hypoxia J18.9 Pneumonia, unspecified organism J44.0 Chr obstructive pulmon disease with (acute) lower resp infct Office Visit 08/02/2018 8:42a [facility] Hugo Bocanegra96.02 Acute respiratory MD failure with hypercapnia J44.0 Chr obstructive pulmon disease with (acute) lower resp infct J81.0 Acute pulmonary edema Office Visit 08/02/2018 8:42a [facility] Vandana Moeller1.9 Sepsis, Assoc,tate Sy M.D. unspecified Hospitalists organism J44.0 Chr obstructive pulmon disease with (acute) lower resp infct J18.9 Pneumonia, unspecified organism Office Visit 08/01/2018 8:41a [facility] Abrahan Bonilla, J96.02 Acute respiratory MD failure with hypercapnia J81.0 Acute pulmonary edema J44.1 Chronic obstructive pulmonary disease w (acute) exacerbation Office Visit 08/01/2018 [facility] E87.1 Hypo-osmolality and 8:41a Services Of John Ochoa MD hyponatremia J44.0 Chr obstructive pulmon disease with (acute) lower resp infct I50.9 Heart failure, unspecified Office Visit 08/01/2018 8:40a [facility] A41.9 Sepsis, Assoc,tate Sy M.D. unspecified Hospitalists organism J96.22 Acute and chronic respiratory failure with hypercapnia J96.21 Acute and chronic respiratory failure with hypoxia J44.0 Chr obstructive pulmon disease with (acute) lower resp infct Office Visit 07/31/2018 8:40a [facility] A41.9 Sepsis, Assoc,tate Sy M.D. unspecified Hospitalists organism J96.01 Acute respiratory failure with hypoxia J44.1 Chronic obstructive pulmonary disease w (acute) exacerbation J18.9 Pneumonia, unspecified organism Office Visit 07/30/2018 [facility] A41.9 Sepsis, 8:39a Assoc,tate Diaz NP unspecified Hospitalists organism E87.1 Hypo-osmolality and hyponatremia R06.02 Shortness of breath Office Visit 07/24/2018 1:45p Pulmonology And Carmella J44.9 Chronic Sleep Services Of MD Roderick obstructive [employer] Department Supervisor pulmonary disease, unspecified F17.210 Nicotine dependence, cigarettes, uncomplicated Assessments Date Code Description Provider 12/28/2018 I35.0 Nonrheumatic aortic (valve) stenosis Selene Esteban NP 12/28/2018 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 12/12/2018 I35.0 Nonrheumatic aortic (valve) stenosis [facility] Schedule 12/12/2018 I25.10 Atherosclerotic heart disease of [place] ECHO Schedule [place] coronary artery without angina pectoris 12/12/2018 I34.0 Nonrheumatic mitral (valve) [facility] Schedule insufficiency 12/01/2018 M25.562 Pain in left knee Christelle Ordonez.D. 12/01/2018 M25.561 Pain in right knee Christelle Ordonez.D. 12/01/2018 M25.462 Effusion, left knee Christelle Ordonez.D. 12/01/2018 M25.461 Effusion, right knee Christelle Ordonez.DGene 12/01/2018 M17.0 Bilateral primary osteoarthritis of Jennifer Brown M.D. knee 12/01/2018 M70.62 Trochanteric bursitis, left hip Delta OrdonezDGene 12/01/2018 M70.61 Trochanteric bursitis, right hip Christelle Ordonez.DGene 12/01/2018 M25.552 Pain in left hip Christelle Ordonez.D. 12/01/2018 M25.551 Pain in right hip Christelle Ordonez.D. 12/01/2018 M16.0 Bilateral primary osteoarthritis of Jennifer Brown M.D. 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 08/03/2018 J18.9 Pneumonia, unspecified organism [...] M.D. 07/30/2018 A41.9 Sepsis, unspecified organism Trish Emily, OUTPLACEMENT CONSULTANT 07/30/2018 E87.1 Hypo-osmolality and hyponatremia Trish Emily, OUTPLACEMENT CONSULTANT 07/30/2018 R06.02 Shortness of breath Trish Diaz, AFSANEH 07/24/2018 J44.9 Chronic obstructive pulmonary disease, Carmella Vaughn MD unspecified 07/24/2018 F17.210 Nicotine dependence, cigarettes, Carmella Vaughn MD uncomplicated Plan of Treatment Future Appointment(s):01/15/2019 1:45 pm - Jennifer Brown M.D. at [facility] at Dotrmr6301/08/2019 2:30 pm - Jennifer Brown M.D. at [facility] at Qbaoun3801/01/2019 3:15 pm - Jennifer Brown M.D. at [facility] at Dqbxbx2010/26/2019 2:00 pm - Evangelista Jhaveri NP at [facility] Zjrbso7212/28/2018 - Selene Esteban NPI35.0 Nonrheumatic aortic (valve) stenosisFollow up:follow up with Dr. Jacobsen in 4-6 months.I25.10 Atherosclerotic heart disease of [place] coronary artery without angina ejqifyaeZ89.5 Hyperlipidemia, unspecified Functional Status Description No Information Available Mental Status Description No Information Available Referrals Refer to Dr Reason for Referral Status Appt Date [facility] C[facility] [address] [place] [address] [phone] [facility] PT for cervicalgia. [facility] [address] [place] [address] [phone]
--- OUTSIDE RECORDS SUMMARY | 2019-01-30 04:08 | XMS REPORT | Continuity of Care Document ---
:1935 External Reference #:[id number] Author Name Jennifer Brown M.D. 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 Onset: 08/20/2016 the pelvic region and thigh Trochanteric bursitis Jennifer Brown M.D. Onset: 08/20/2016 Localized, primary osteoarthritis Jennifer Brown M.D. Onset: 09/24/2016 Dyspnea Bernard Lees M.D., [facility], [facility] Onset: 09/29/2016 Aortic valve disorder Bernard Lees M.D., [facility], [facility] Onset: 08/25/2017 Social History Type Date Description Comments Sex Unknown Tobacco Use Start: Unknown current cigarette smoker ETOH Use Denies alcohol use Recreational Drug Use Denies Drug Use Tobacco Use Start: Unknown Patient is a current Occasionally will smoker, smokes some share 1-2 puffs with days other people Smoking Status Reviewed: 01/17/19 Patient is a current Occasionally will smoker, [...] Esteban, 12/11/2018 40mg Tablets every day at [employer] bedtime Incruse Ellipta inhale one puff by Unknown 09/12/2018 mouth every day 62.5mcg/Inh Aerosol Ipratropium 1 [facility] Taylor/Albuterol every 6 hours prn MD Sulfate 0.5-2.5(3)mg/3ML Solution Nebulizer 1 unit nebulization 1units J44.9 [facility], 12/08/2017 Device with albuterol MD every 6 hours and as needed Gabapentin 2 caps po 2 times 90caps Unknown 03/22/2017 300mg daily, morning and Capsules bed. 1 cap in the noon and evening Flutter use as instructed 1units J44.9 Carmellajuliano Vaughn, 09/16/2014 Device twice a day Imodium A-D [...] one by mouth once Unknown Potency monthly 04578Cqps Tablets Nystatin 5cc swish and spit Unknown [id number]/ML 4 times a day Suspension Metamucil take [...] Date Synvisc Or Synvisc-One Jennifer Brown M.D. 01/08/2019 Injection 1 MG Injection Synvisc Or Synvisc-One Jennifer Brown M.D. 01/08/2019 Injection 1 MG Injection Synvisc Or Synvisc-One Jennifer Brown M.D. 01/01/2019 Injection 1 MG Injection Synvisc Or Synvisc-One Jennifer Brown M.D. 01/01/2019 Injection 1 MG Injection Depomedrol 40MG Jennifer Brown M.D. 12/01/2018 Injection Depomedrol 40MG Jennifer Brown M.D. 12/01/2018 Injection Depomedrol 40MG Jennifer Brown M.D. 07/25/2017 [...] Depomedrol 40MG Jennifer Brown M.D. 09/24/2016 Injection Reginarol 40MG Jennifer Brown M.D. 09/24/2016 Injection Depomedrol 40MG Jennifer Brown M.D. 08/27/2016 Injection Depomedrol 40MG Jennifer Brown M.D. 08/20/2016 Injection Depomedrol 80MG Enid Aguilar M.D. 11/29/2013 Injection Giulianaomedrol 80MG Enid Aguilar M.D. 03/29/2013 Injection Immunizations CPT Code Status Date Vaccine Lot # [id number] Given 06/18/2014 Fluvirin Im 3Yrs And Older Vital Signs Date Vital Result Comment 01/17/2019 1:59pm Height 61 inches 5'1" Weight 114.00 lb Heart Rate 60 /min BP Systolic 138 mmHg BP Diastolic 60 mmHg Respiratory Rate 16 /min Body Temperature 99.3 F Pain Level 7 BMI (Body Mass Index) 21.5 kg/m2 01/08/2019 3:00pm Height 61 inches 5'1" Weight 114.00 lb Heart Rate 54 /min BP Systolic 134 mmHg BP Diastolic 74 mmHg Body Temperature 98.1 F Pain Level 5 BMI (Body Mass Index) 21.5 kg/m2 Results Test Acquired Date Facility Test Result H/L Range Note Comp Metabolic 12/08/2018 [facility] Sodium 138 mmol/L Normal 135-145 Panel [address] [place] [address] [phone] Potassium 4.5 mmol/L Normal 3.5-5.0 Chloride 99 [...] Egfr 65.4 >60 1 Lipid Profile 12/08/2018 [facility] Triglycerides 167 mg/dL 2 (Trig/Chol/HDL) [address] [place] [address] [phone] Cholesterol 143 mg/dL 3 HDL Cholesterol 87.4 mg/dL 4 LDL Cholesterol 22 mg/dL 5 Laboratory test 12/08/2018 [facility] Creatine 41 U/L Normal 10-[address] Kinase(CK) [place] [address] [phone] CBC Auto Diff 12/08/2018 [facility] White Blood 12.2 High 3.5- 10.[address] Count 10^3/[place] [address] [phone] Red Blood Count 3.99 10^6/uL Normal 3.70-4.87 [...] Cells % 0.1 Lipid Panel - 11/23/2018 [facility] Creatine Kinase(CK) <pending > [facility] [address] [place] [address] [phone] 1 Because ethnic data is not always [...] High: >189 Procedures Date Code Description Status 01/17/2019 Inject/Drain Joint/Bursa Major W/O US Completed 01/17/2019 Inject/Drain Joint/Bursa Major W/O US Completed 01/08/2019 Inject/Drain Joint/Bursa Major W/O US Completed 01/08/2019 Inject/Drain Joint/Bursa Major W/O US Completed 01/01/2019 Inject/Drain Joint/Bursa Major W/O US Completed 12/12/2018 80208 ECHO Transthoracic, Real-Time 2D With Doppler And Color Completed Flow 12/12/2018 74025 ECHO Transthoracic, Real-Time 2D With Doppler And Color Completed Flow 12/01/2018 Inject/Drain Joint/Bursa Major W/O US Completed 08/01/2018 89615 ECHO Transthorasic Realtime 2D W Doppler & Color Flow Hosp Completed Medical Devices Description No Information Available Encounters Type Date Location Provider Dx Diagnosis Office Visit 12/28/2018 [facility] Selene Eulalia, I35.0 Nonrheumatic aortic 2:00p [employer] (valve) stenosis I25.10 Athscl heart disease of [place] coronary artery w/o ang pctrs E78.5 Hyperlipidemia, unspecified N18.9 Chronic kidney disease, unspecified Office Visit 12/01/2018 1:45p [facility] Jennifer Kevin, M25.562 Pain in left at [place] M.[place]. knee M25.561 Pain in right knee M25.462 Effusion, left knee M25.461 Effusion, right knee M17.0 Bilateral primary osteoarthritis of knee M70.62 Trochanteric bursitis, left hip M70.61 Trochanteric bursitis, right hip M25.552 Pain in left hip M25.551 Pain in right hip M16.0 Bilateral primary osteoarthritis of hip Office Visit 11/23/2018 3:00p [facility] Selene Esteban, I35.0 Nonrheumatic [employer] aortic (valve) stenosis I25.10 Athscl heart disease of [place] coronary artery w/o ang pctrs D64.9 Anemia, unspecified I34.0 Nonrheumatic mitral (valve) insufficiency Office Visit 10/20/2018 10:45a [facility] Evangelista Jhaveri, AFSANEH R51 Headache G25.0 Essential tremor M54.2 Cervicalgia Office Visit 08/10/2018 8:46a [facility] [place] J44.1 Chronic Assoc,tate Barron M.D. obstructive [...] resp infct Office Visit 08/08/2018 8:45a Nilsa Landaverde J96.01 Acute respiratory Assoc,tate Barron M.D. failure with Hospitalists hypoxia J44.0 Chr obstructive pulmon disease with (acute) lower resp infct Office Visit 08/07/2018 8:45a [facility] Akhil J96.01 Acute respiratory Assoc,tate Barron M.D. failure with Hospitalists hypoxia J44.0 Chr obstructive pulmon disease with (acute) lower resp infct Office Visit 08/06/2018 8:44a [facility] Kuldeep Jc J96.01 Acute respiratory Assoc,pc MD failure with Hospitalists hypoxia J44.0 Chr obstructive pulmon disease with (acute) lower resp infct Office Visit 08/05/2018 8:43a [facility] Kuldeep Jc J96.02 Acute respiratory Assoc,pc MD failure with Hospitalists hypercapnia J44.0 Chr obstructive pulmon disease with (acute) lower resp infct Office Visit 08/04/2018 8:43a [facility] Kuldeep Jc J96.02 Acute respiratory Assoc,pc MD failure with Hospitalists hypercapnia J44.0 Chr obstructive pulmon disease with (acute) lower resp infct J18.9 Pneumonia, unspecified organism I50.31 Acute diastolic (congestive) heart failure Office Visit 08/03/2018 8:42a [facility] Vandana A41.9 Sepsis, Assoc,tate Sy M.D. unspecified Hospitalists organism J96.01 Acute respiratory failure with hypoxia J18.9 Pneumonia, unspecified organism J44.0 Chr obstructive pulmon disease with (acute) lower resp infct Office Visit 08/02/2018 8:42a [facility] Hugo Bocanegra96.02 Acute respiratory MD failure with hypercapnia J44.0 Chr obstructive pulmon disease with (acute) lower resp infct J81.0 Acute pulmonary edema Office Visit 08/02/2018 8:42a [facility] Vandana Moeller1.9 Sepsis, Assoc,tate Sy M.D. unspecified Hospitalists organism J44.0 Chr obstructive pulmon disease with (acute) lower resp infct J18.9 Pneumonia, unspecified organism Office Visit 08/01/2018 8:41a [facility] Hugo Bocanegra96.02 Acute respiratory MD failure with hypercapnia J81.0 Acute pulmonary edema J44.1 Chronic obstructive pulmonary disease w (acute) exacerbation Office Visit 08/01/2018 [facility] Martha E87.1 Hypo-osmolality and 8:41a Services Of John Ochoa MD hyponatremia J44.0 Chr obstructive pulmon disease with (acute) lower resp infct I50.9 Heart failure, unspecified Office Visit 08/01/2018 8:40a [facility] A41.9 Sepsis, Assoc,tate Sy M.D. unspecified Hospitalists organism J96.22 Acute and chronic respiratory failure with hypercapnia J96.21 Acute and chronic respiratory failure with hypoxia J44.0 Chr obstructive pulmon disease with (acute) lower resp infct Office Visit 07/31/2018 8:40a [facility] A41.9 Sepsis, Assoc,tate Sy M.D. unspecified Hospitalists organism J96.01 Acute respiratory failure with hypoxia J44.1 Chronic obstructive pulmonary disease w (acute) exacerbation J18.9 Pneumonia, unspecified organism Office Visit 07/30/2018 [facility] Trish A41.9 Sepsis, 8:39a Assoc,pc Emily, [employer] unspecified Hospitalists organism E87.1 Hypo-osmolality and hyponatremia R06.02 Shortness of breath Office Visit 07/24/2018 1:45p Pulmonology And Carmella J44.9 Chronic Sleep Services Of MD Roderick obstructive Base Manager pulmonary disease, unspecified F17.210 Nicotine dependence, cigarettes, uncomplicated Assessments Date Code Description Provider 01/17/2019 M25.562 Pain in left knee Jennifer Brown M.D. 01/17/2019 M25.561 Pain in right knee Jennifer Brown M.D. 01/17/2019 M25.462 Effusion, left knee Jennifer Brown M.D. 01/17/2019 M25.461 Effusion, right knee Jennifer Brown M.D. 01/17/2019 M17.0 Bilateral primary osteoarthritis of Jennifer Brown M.D. knee 01/08/2019 M25.562 Pain in left knee Jennifer Brown M.D. 01/08/2019 M25.561 Pain in right knee Jennifer Brown M.D. 01/08/2019 M25.462 Effusion, left knee Jennifer Brown M.D. 01/08/2019 M25.461 Effusion, right knee Christelle Ordonez.D. 01/08/2019 M17.0 Bilateral primary osteoarthritis of Jennifer Brown M.D. knee 01/01/2019 M25.562 Pain in left knee Jennifer Brown, M.D. 01/01/2019 M25.561 Pain in right knee Jennifer Brown, M.D. 01/01/2019 M25.462 Effusion, left knee Jennifer Brown, Christelle.D. 01/01/2019 M25.461 Effusion, right knee Jennifer Brown, Christelle.D. 01/01/2019 M17.0 Bilateral primary osteoarthritis of Jennifer Brown M.D. knee 12/28/2018 I35.0 Nonrheumatic aortic (valve) stenosis Selene Esteban, AFSANEH 12/28/2018 I25.10 [facility] [place] coronary artery without angina pectoris 12/28/2018 E78.5 Hyperlipidemia, unspecified [facility] Eulalia, AFSANEH 12/28/2018 N18.9 Chronic kidney disease, unspecified [facility] AFSANEH Esteban 12/12/2018 I35.0 Nonrheumatic aortic (valve) stenosis Katherine Jacobsen M.D. 12/12/2018 I35.0 Nonrheumatic aortic (valve) stenosis [place] [facility] Schedule 12/12/2018 I25.10 Atherosclerotic heart disease of [place] ECHO Schedule [place] coronary artery without angina pectoris 12/12/2018 I34.0 Nonrheumatic mitral (valve) [place] [facility] Schedule insufficiency 12/01/2018 M25.562 Pain in left knee Christelle Ordonez.D. 12/01/2018 M25.561 Pain in right knee Christelle Ordonez.D. 12/01/2018 M25.462 Effusion, left knee Delta OrdonezD. 12/01/2018 M25.461 Effusion, right knee Delta OrdonezD. 12/01/2018 M17.0 Bilateral primary osteoarthritis of Jennifer [...] NP 11/23/2018 I25.10 [facility] [place] coronary artery without angina pectoris 11/23/2018 D64.9 Anemia, unspecified Selene Esteban NP 11/23/2018 I34.0 Nonrheumatic mitral (valve) Selene Esteban NP insufficiency 10/20/2018 R51 Headache Evangelista Jhaveri, AFSANEH 10/20/2018 G25.0 Essential tremor Evangelista Jhaveri NP 10/20/2018 M54.2 Cervicalgia Evangelista Jhaveri, AFSANEH 08/10/2018 [...] 07/30/2018 A41.9 Sepsis, unspecified organism Trish Diaz, [employer] 07/30/2018 E87.1 Hypo-osmolality and hyponatremia Trish Diaz, [employer] 07/30/2018 R06.02 Shortness of breath Trish Diaz, AFSANEH 07/24/2018 J44.9 Chronic obstructive pulmonary disease, Carmella Vaughn MD unspecified 07/24/2018 F17.210 Nicotine dependence, cigarettes, Carmella Vaughn MD uncomplicated Plan of Treatment Future Appointment(s):04/20/2019 2:00 pm - Jennifer Brown M.D. at [facility] at [id number]/26/2019 2:00 pm - Evangelista Jhaveri NP at [facility]3801/17/2019 - Jennifer Brown M.D.M25.562 Pain in left kneeFollow up:Follow up: 3 auppevR95.561 Pain in right kneeM25.462 Effusion, left kneeM25.461 Effusion, right kneeM17.0 Bilateral primary osteoarthritis of knee Functional Status Description No Information Available Mental Status Description No Information Available Referrals Refer to Dr Reason for Referral Status Appt Date [facility] for Cervicalgia [facility] [place] [address] [phone] [facility] [place] PT for cervicalgia. [address] [place] [address] [phone]
--- OUTSIDE RECORDS SUMMARY | 2019-01-30 04:08 | XMS REPORT | Continuity of Care Document ---
:1935 External Reference #:[id number] Author Name Jennifer Brown M.D. 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 Onset: 06/13/2014 Chronic obstructive lung disease Carmella Vaughn MD Onset: 06/18/2014 Pulmonary emphysema Carmella Vaughn MD Onset: 06/18/2014 Tobacco user Carmella Vaughn MD Onset: 06/18/2014 Pre-surgery evaluation Carmella Vaughn MD Onset: 06/18/2014 Disorder of lung Carmella Vaughn MD Onset: 06/18/2014 Hyperlipidemia Bernard Lees M.D., [facility], [facility] Onset: 03/29/2016 Essential hypertension Bernard Lees M.D., [facility], [facility] Onset: 03/29/2016 Atherosclerotic heart disease of Bernard Lees M.D., [facility], [facility] Onset: 2016 [place] 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 Onset: 08/20/2016 the pelvic region and thigh Trochanteric bursitis Jennifer Brown M.D. Onset: 08/20/2016 Localized, primary osteoarthritis Jennifer Brown M.D. Onset: 09/24/2016 Dyspnea Bernard Lees M.D., [facility], [facility] Onset: 09/29/2016 Aortic valve disorder Bernard Lees M.D., [facility], [facility] Onset: 08/25/2017 Social History Type Date Description Comments Sex Unknown Tobacco Use Start: Unknown current cigarette smoker ETOH Use Denies alcohol use Recreational Drug Use Denies Drug Use Tobacco Use Start: Unknown Patient is a current Occasionally will smoker, smokes some share 1-2 puffs with days other people Smoking Status Reviewed: 12/01/18 Patient is a current Occasionally will smoker, [...] Medications SIG Qnty Indications Ordering Date Provider Incruse Ellipta inhale one puff by Unknown 09/12/2018 mouth every day 62.5mcg/Inh Aerosol Ipratropium 1 vial in nebulizer 180ml Carmella Vaughn, 01/26/2018 [place]/Albuterol every 6 hours prn MD Sulfate 0.5-2.5(3)mg/3ML Solution Nebulizer 1 unit nebulization 1units J44.9 Carmella Vaughn, 12/08/2017 Device with albuterol MD every 6 hours and as needed Gabapentin 2 caps po 2 times 90caps Unknown 03/22/2017 300mg daily, morning and Capsules bed. 1 cap in the noon and evening Flutter use as instructed 1units J44.9 Carmella Vaughn, 09/16/2014 Device twice a day Mirtazapine 1 by mouth every Unknown 15mg [...] one by mouth once Unknown Potency monthly 45053Amld Tablets Nystatin 5cc swish and spit Unknown [id number]/ML 4 times a day Suspension Metamucil take [...] Unknown System Step 2 14mg/24HR Patches 24HR Daily Ava 1 tab daily Unknown Tablets [...] tid prn. 30tabs Unknown phen 5-325mg Tablets Atorvastatin Calcium 1 by mouth every Unknown [...] 1-2 x per day Tablets for nausea History Medications Sodium Chloride inhale 1 vial [...] Older Vital Signs Date Vital Result Comment 12/01/2018 1:41pm Height 61 inches 5'1" Weight 114.00 lb Heart Rate 63 /min BP Systolic 108 mmHg BP Diastolic 80 mmHg Body Temperature 98.7 F Pain Level 8 BMI (Body Mass Index) 21.5 kg/m2 11/23/2018 2:24pm Height 61 inches 5'1" Weight 114.38 lb with shoes/clothes Heart Rate 72 /min radial, regular BP Systolic Sitting 150 mmHg Ra, reg cuff BP Diastolic Sitting 52 mmHg Ra, reg cuff BP Systolic Standing 156 mmHg Ra, reg cuff BP Diastolic Standing 56 mmHg Ra, reg cuff BMI (Body Mass Index) 21.6 kg/m2 Ejection Fraction 55%-60% echo 08/01/18 Results Test Date Facility Test Result H/L Range Note Lipid Panel - 11/23/2018 [facility] Creatine <pending> [facility] [address] [employer]CK) [place] [address] [phone] Procedures Date Code Description Status 12/01/2018 32984 Inject/Drain Joint/Bursa Major W/O US Completed 12/01/2018 55538 Inject/Drain Joint/Bursa Major W/O US Completed 08/01/2018 66092 ECHO Transthorasic Realtime 2D W Doppler & Color Flow Hosp Completed 06/07/2018 29681 ECHO Transthoracic, Real-Time 2D With Doppler And Color Completed Flow 06/07/2018 86070 ECHO Transthoracic, Real-Time 2D With Doppler And Color Completed Flow Medical Devices Description No Information Available Encounters Type Date Location Provider Dx Diagnosis Office Visit 12/01/2018 [facility] Jennifer Brown, M25.562 Pain in left knee 1:45p [facility] Crocker M25.561 Pain in right knee M25.462 Effusion, left knee M25.461 Effusion, right knee M17.0 Bilateral primary osteoarthritis of knee M70.62 Trochanteric bursitis, left hip M70.61 Trochanteric bursitis, right hip M25.552 Pain in left hip M25.551 Pain in right hip M16.0 Bilateral primary osteoarthritis of hip Office Visit 11/23/2018 3:00p [facility] Selene Thuman, 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 I25.10 Athscl heart disease of [place] coronary artery w/o ang pctrs D64.9 Anemia, unspecified I34.0 Nonrheumatic mitral (valve) insufficiency Office Visit 10/20/2018 10:45a [facility] Evangelista Jhaveri, DRIVER RETRAINING INSTRUCTOR R51 Headache G25.0 Essential tremor M54.2 Cervicalgia [...] lower resp infct Office Visit 08/06/2018 8:44a [place] [facility] J96.01 Acute respiratory Assoc,tate HAYS failure with Hospitalists hypoxia J44.0 Chr obstructive pulmon disease with (acute) lower resp infct Office Visit 08/05/2018 8:43a [facility] Hugo Rooney96.02 Acute respiratory Assoc,tate HAYS failure with Hospitalists hypercapnia J44.0 Chr obstructive pulmon disease with (acute) lower resp infct Office Visit 08/04/2018 8:43a [place] [facility] J96.02 Acute respiratory Assoc,tate HAYS failure with Hospitalists hypercapnia J44.0 Chr obstructive pulmon disease with (acute) lower resp infct J18.9 Pneumonia, unspecified organism I50.31 Acute diastolic (congestive) heart failure [facility] Sepsis, Assoc,tate Sy M.D. unspecified Hospitalists organism J96.01 Acute respiratory failure with hypoxia J18.9 Pneumonia, unspecified organism J44.0 Chr obstructive pulmon disease with (acute) lower resp infct Office Visit 08/02/2018 8:42a [facility] Abrahan Bonilla J96.02 Acute respiratory MD failure with hypercapnia J44.0 Chr obstructive pulmon disease with (acute) lower resp infct J81.0 Acute pulmonary edema Office Visit 08/02/2018 8:[facility] A[facility].9 Sepsis, Assoc,tate Sy M.D. [...] Heart failure, unspecified Office Visit 08/01/2018 8:40[facility] A41.9 Sepsis, Assoctate M.D. unspecified Hospitalists organism J96.22 Acute and chronic respiratory failure with hypercapnia J96.21 Acute and chronic respiratory failure with hypoxia J44.0 Chr obstructive pulmon disease with (acute) lower resp infct Office Visit 07/31/2018 8:40a [facility] A41.9 Sepsis, Assoctate M.D. unspecified Hospitalists organism J96.01 Acute respiratory failure with hypoxia J44.1 Chronic obstructive pulmonary disease w (acute) exacerbation J18.9 Pneumonia, unspecified organism [facility] Sepsis, 8:39a Assoc,tate Diaz NP unspecified Hospitalists organism E87.1 Hypo-osmolality and hyponatremia R06.02 Shortness of breath Office Visit 07/24/2018 1:45p [facility] And Carmella J44.9 Chronic [facility] MD Roderick obstructive [employer] pulmonary disease, unspecified F17.210 Nicotine dependence, cigarettes, uncomplicated Assessments Date Code Description Provider 12/01/2018 M25.562 Pain in left knee Christelle Ordonez.DGene 12/01/2018 M25.561 Pain in right knee Christelle Ordonez.DGene 12/01/2018 M25.462 Effusion, left knee Christelle Ordonez.DGene 12/01/2018 M25.461 Effusion, right knee Christelle Ordonez.DGene 12/01/2018 M17.0 Bilateral primary osteoarthritis of Christelle Ordonez.DGene knee 12/01/2018 M70.62 Trochanteric bursitis, left hip Christelle Ordonez.DGene 12/01/2018 M70.61 Trochanteric bursitis, right hip Christelle Ordonez.DGene 12/01/2018 M25.552 Pain in left hip Christelle Ordonez.D. 12/01/2018 M25.551 Pain in right hip Jennifer Brown M.D. 12/01/2018 M16.0 Bilateral primary osteoarthritis of Christelle Ordonez.Tim hip 11/23/2018 I35.0 Nonrheumatic aortic (valve) stenosis Selene Esteban NP 11/23/2018 I25.10 Atherosclerotic heart disease of Selene Esteban NP [place] coronary artery without angina pectoris 11/23/2018 D64.9 [...] J96.01 Acute respiratory failure with hypoxia Vandana yS M.D. 08/03/2018 J18.9 Pneumonia, unspecified organism Vandana [...] 07/30/2018 A41.9 Sepsis, unspecified organism Trish Diaz, DRIVER RETRAINING INSTRUCTOR 07/30/2018 E87.1 Hypo-osmolality and hyponatremia Trish Diaz, DRIVER RETRAINING INSTRUCTOR 07/30/2018 R06.02 Shortness of breath Trish Diaz, DRIVER RETRAINING INSTRUCTOR 07/24/2018 J44.9 Chronic obstructive pulmonary disease, Carmella Vaughn MD unspecified 07/24/2018 F17.210 Nicotine dependence, cigarettes, Carmella Vaughn MD uncomplicated 06/07/2018 R06.02 Shortness of breath Katherine Jacobsen M.D. 06/07/2018 R06.02 Shortness of breath [facility] 06/07/2018 I25.10 Atherosclerotic heart disease of [facility] [place] coronary artery with 06/07/2018 I35.2 Nonrheumatic aortic (valve) stenosis [facility] with insufficiency 06/07/2018 I34.0 Nonrheumatic mitral (valve) [facility] insufficiency Plan of Treatment Future Appointment(s):12/28/2018 2:00 pm - Selene Esteban NP at [facility]12/12/2018 2:15 pm - [facility] at [facility]2019 2:00 pm - Evangelista Jhaveri NP at [id number]/01/2018 - Jennifer Brown M.D.M25.562 Pain in left kneeFollow up:Follow up: [facility] authorization needed. Follow up appointment [place]. bilateral kneeM25.561 Pain in right kneeM25.462 Effusion, left kneeM25.461 Effusion, right kneeM17.0 Bilateral primary osteoarthritis of kneeM70.62 Trochanteric bursitis, left hipM70.61 Trochanteric bursitis, right hipM25.552 Pain in left hipM25.551 Pain in right hipM16.0 Bilateral primary osteoarthritis of hip Functional Status Description No Information Available Mental Status Description No Information Available Referrals Refer to Reason for Referral Status Appt Date [facility] [place] [address] [address] [phone] [facility] for cervicalgia. Sent [address] [place] [id number] [phone]
--- OUTSIDE RECORDS SUMMARY | 2019-01-30 04:08 | XMS REPORT | Continuity of Care Document ---
:1935 External Reference #:[id number] Author Name Ishaan Haro M.D. Address [address] [place] [address] Care Team Providers Name Role Phone Nancy Burciaga M.D. - Family Medicine Care Team Information Escapement Matcher Feliciano Sims M.D. - Hematology & Care Team Information Escapement Matcher [phone] Oncology Problems Active Problems Provider Date Type 2 diabetes mellitus Onset: Malignant neoplasm of skin Onset: Osteoporosis Onset: Seizure Onset: Migraine Onset: Pure hypercholesterolemia Onset: Pernicious anemia Onset: Multiple environmental allergies Onset: Internal hordeolum Julissa Olguin O.D. Onset: 10/17/2014 Graves' disease Onset: Samantha thyroiditis Onset: Seizure undetermined whether focal or Onset: generalized Benign neoplasm of choroid Julissa Olguin O.D. Onset: 10/30/2014 After-cataract with vision obscured Julissa Olguin O.D. Onset: 10/30/2014 Blepharitis Julissa Olguin O.D. Onset: 10/30/2014 Pseudophakia Ishaan Haro M.D. Onset: 11/11/2014 Autoimmune hemolytic anemia Onset: Other secondary cataract, left eye Trish Montemayor O.D. Onset: 01/07/2015 Tear film insufficiency Kandy Christianson O.D. Onset: 06/11/2015 Social History Type Date Description Comments Sex Unknown ETOH Use Denies alcohol use Tobacco Use Start: Unknown Heavy tobacco smoker (more than 10 cigarettes/day) Recreational Drug Use Denies Drug Use Smoking Status Reviewed: 12/19/18 Heavy tobacco smoker (more than 10 cigarettes/day) Allergies, Adverse Reactions, Alerts Active Allergies Reaction Severity Comments Date Potassium Chloride 10/17/2014 Sulfa Antibiotics 10/17/2014 Prednisone pain all over her body/swellig 10/17/2014 Wellbutrin 10/17/2014 Dye Xray 10/17/2014 Contrast Dye IVP dye 12/09/2014 Adhesives 12/09/2014 Medications Active Medications SIG Qnty Indications Ordering Provider Date Systane 1 drop 3-4x day 20ml H04.123 Julissa Olguin, 01/27/2017 0.4-0.3% Solution O.D. Genteal PM both eyes every Kandy Styles 06/10/2015 85-15% Ointment night Naren Christianson Atorvastatin Calcium Patrica Nancy 80mg M.D. Tablets Ranitidine HCL Patrica Nancy 150mg M.D. Tablets Amlodipine Besylate Nancy Burciaga 10mg M.D. Tablets Atorvastatin Calcium Patrica, Nancy 80mg M.D. Tablets Incruse Ellipta Unknown 62.5mcg/Inh Aerosol Natural Fiber Therapy Unknown 48.57% Powder Metoprolol Tartrate Nancy Burciaga 25mg M.D. Tablets Buspirone HCL Unknown 10mg Tablets Butalbital/Acetaminophe Unknown n/Caffeine 50-325-40mg Capsules Mirtazapine Unknown 15mg Tablets Ra Allergy Relief Unknown 180mg Tablets Aspirin Unknown 81mg Tablets DR [place] Sodium Patrica Nancy 10mg M.D. Tablets Hydrocodone-Acetaminoph take 1 tablet Unknown en three times a day 5-325mg Tablets as Needed Mucinex Unknown 600mg Tablets ER 12HR Doxepin HCL Unknown 10mg Capsules Senna Lax take 2 tablets Unknown 8.6mg Tablets once daily Folic Acid Unknown 1mg Tablets Butalbital/Acetaminophe Jovanna Cervantes MARKETING MANAGER n/Caffeine 50-325-40mg Tablets Dicyclomine HCL Javan Jensen 10mg M.D. Capsules Desloratadine Unknown 5mg Tablets Gabapentin Take 2 Caps 3 Unknown 300mg Capsules Times A Day (Replaces 600MG Tab) Levothyroxine Sodium Unknown 25mcg Tablets Spiriva Handihaler Unknown 18mcg Capsules Ondansetron Feliciano Sims M.D. 8mg Tablets Dispers Immunizations Description No Information Available Vital Signs Description No Information Available Results Description No Information Available Procedures Description No Information Available Medical Devices Description No Information Available Encounters Description No Information Available Assessments Date Code Description Provider 12/19/2018 D31.31 Benign neoplasm of right choroid Ishaan Haro M.D. 12/19/2018 H04.123 Dry eye syndrome of bilateral lacrimal Ishaan Haro M.D. glands 12/19/2018 Z96.1 Presence of intraocular lens Ishaan Haro M.D. Plan of Treatment 12/19/2018 - Ishaan Haro M.D.D31.31 Benign neoplasm of right choroidComments:Smoking can increase the risk of developing or worsening any eye related disease, as well as affect your overall health. If you are a smoker , we strongly recommend that you quit.If you are not a smoker, we strongly recommend that you do not start. You have a nevus in your right eye. This is similar to a mole on your skin. Typically this will not change, but I will monitor it.Follow up:1 Year Follow Up Photos You can expect to have your eyes dilated at your next visit. If Dr. Haro orders any additional testing, it may require extra time. We recommend that you bring sunglasses, as dilation drops often make you light sensitive until they wear off. We always recommend you bring someone to drive you home if you are uncomfortable driving with your eyes dilated. If you have any questions before your next visit, feel free to call our office at .H04.123 Dry eye syndrome of bilateral lacrimal glandsComments:Both of your eyes appear to be dry. Use artificial tears as directed. You can use the tears more often if you are reading a book or are on the computer, as we tend to blink less, making our eyes dry out more.[facility] offers a few items in our optical department to help alleviate dry eye symptoms. Systane and Refresh are good brands of tears you can use. You can pick these up at any pharmacy and they do not require a prescription.Z96.1 Presence of intraocular lensComments:The artificial lens implants in both eyes appear to be stable at this time. Functional Status Description No Information Available Mental Status Description No Information Available Referrals Description No Information Available
[2019-01-30 04:14] LABS: Albumin 3.4 g/dL (3.2-5.2); Albumin/Globulin Ratio 1.2 (1-3); BUN/Creatinine Ratio 20.9 (8-20); Calcium 8.8 mg/dL (8.6-10.3); EGFR African American 76.1 (>60); EGFR Non-African American 62.9 (>60); Globulin 2.9 g/dL (2-4); Total Bilirubin 0.2 mg/dL (0.2-1.0); Total Protein 6.3 g/dL (6.4-8.9)
[2019-01-30 04:35] LABS: Potassium 4.4 mmol/L (3.5-5.0)
[2019-01-30 09:51] VITALS: BP 139/65
== END 2019-01-30 10:09 | disposition home or self-care (01) ==
LOC: ED 03:07
DX: R19.7 Diarrhea, unspecified (principal); R11.0 Nausea; R10.84 Generalized abdominal pain; R07.89 Other chest pain; R51 Headache; I25.10 Atherosclerotic heart disease of native coronary artery without angina pectoris; I10 Essential (primary) hypertension; J44.9 Chronic obstructive pulmonary disease, unspecified; N17.9 Acute kidney failure, unspecified; Z90.5 Acquired absence of kidney; Z90.89 Acquired absence of other organs; Z88.2 Allergy status to sulfonamides; Z88.8 Allergy status to other drugs, medicaments and biological substances; Z88.6 Allergy status to analgesic agent; Z88.4 Allergy status to anesthetic agent; Z88.1 Allergy status to other antibiotic agents; Z91.040 Latex allergy status; F17.210 Nicotine dependence, cigarettes, uncomplicated
CPT/HCPCS: 36415; 80053; 83690; 85025; 93005; 96361; 96374; 99283; J2405

== ENCOUNTER 2019-03-25 10:22 | Emergency (ER) | payer MEDICARE, MEDICAID ==
[2019-03-25] MEDS ORDERED: Albuterol/Ipratropium NEB.SOL* Albuterol 2.5 MG/Ipratropium 0.5 MG 3 ML INH ONE ×2 (10:37→11:59)
--- NOTE | 2019-03-25 10:38 | ED ---
Shortness of Breath - HPI Summary HPI Summary: Pt is an 84 y/o F presenting to the ED brought in by EMS for shortness of breath initially onset multiple weeks ago. She states she has asthma as well as COPD, and over the past few weeks shes been coughing up thick green mucous with accompanying rhinorrhea. This morning, she was trying to cough up the phlegm but was unable to, causing her severe shortness of breath. She also notes some pain in her abdomen and pain between her shoulder blades described as needlesticks. Reports hx of pain in abdomen which "no one knows what it is". Additionally, she notes intermittent dizziness described as room spinning which she has had before (now resolved), and that her L knee is "locking up" and is painful. Pt lives alone, daughter is primary director of parks and recreation. She denies fever or chest pain. - History of Current Complaint Chief Complaint: EDShortnessOfBreath Hx Obtained From: Patient, EMS Onset/Duration: Gradual Onset, Lasting Weeks, Still Present Timing: Constant Current Severity: Moderate Dyspnea At: Rest Aggravating Factors: Nothing Alleviating Factors: Nothing Associated Signs & Symptoms: Cough (Productive), Nasal Congestion, Dizzy - Allergy/Home Medications Allergies/Adverse Reactions: Allergies Allergy/AdvReac Type Severity Reaction Status Date / Time acetaminophen [From Tylenol] Allergy Unknown Verified 03/25/19 10:33 Reaction Details bupropion [From Wellbutrin] Allergy Unknown Verified 03/25/19 10:33 Reaction Details carbamazepine Allergy Unknown Verified 03/25/19 10:33 Reaction Details clindamycin Allergy Unknown Verified 03/25/19 10:33 Reaction Details divalproex sodium Allergy Unknown Verified 03/25/19 10:33 [From Depakote] Reaction Details fluticasone Allergy Unknown Verified 03/25/19 10:33 [From Advair Diskus] Reaction Details iodine Allergy Unknown Verified 03/25/19 10:33 Reaction Details latex Allergy Unknown Verified 03/25/19 10:33 Reaction Details levofloxacin [From Levaquin] Allergy Unknown Verified 03/25/19 10:33 Reaction Details lidocaine Allergy Unknown Verified 03/25/19 10:33 Reaction Details olanzapine [From Zyprexa] Allergy Unknown Verified 03/25/19 10:33 Reaction Details paroxetine [From Paxil] Allergy Agitation Verified 03/25/19 10:33 phenytoin [From Dilantin] Allergy Unknown Verified 03/25/19 10:33 Reaction Details salmeterol Allergy Unknown Verified 03/25/19 10:33 [From Advair Diskus] Reaction Details Sulfa (Sulfonamide Allergy Unknown Verified 03/25/19 10:33 Antibiotics) Reaction Details Tetracyclines Allergy Unknown Verified 03/25/19 10:33 Reaction Details triamcinolone [From Azmacort] Allergy Unknown Verified 03/25/19 10:33 Reaction Details PMH/Surg Hx/FS Hx/Imm Hx Previously Healthy: Yes Endocrine/Hematology History: Reports: Hx Thyroid Disease - HASHIMOTOS, Hx Anemia - CHRONIC HEMOLYTIC ANEMIA Denies: Hx Anticoagulant Therapy, Hx Diabetes Cardiovascular History: Reports: Hx Coronary Artery Disease, Hx Hypercholesterolemia, Hx Hypertension Denies: Hx Pacemaker/ICD Comment Only: Other Cardiovascular Problems/Disorders - HX OF MASTECTOMY Respiratory History: Reports: Hx Chronic Bronchitis - not chronic, Hx Chronic Obstructive Pulmonary Disease (COPD) - CAD, Hx Pneumonia, Other Respiratory Problems/Disorders - emphysema Denies: Hx Asthma GI History: Reports: Hx Gastroesophageal Reflux Disease, Hx Hiatal Hernia, Hx Irritable Bowel, Hx Obstructive Bowel, Other GI Disorders - small bowel obstruction History: Reports: Hx Acute Renal Failure, Hx Kidney Stones, Hx Renal Disease - 1 KIDNEY, Other Problems/Disorders - renal disease Musculoskeletal History: Reports: Hx Arthritis - OSTEOARTHRITIS, Hx Osteoporosis Denies: Hx Rheumatoid Arthritis Sensory History: Reports: Hx Cataracts Denies: Hx Contacts or Glasses, Hx Legally Blind, Hx Deafness, Hx Hearing Aid Opthamlomology History: Reports: Hx Cataracts Denies: Hx Contacts or Glasses, Hx Legally Blind Neurological History: Reports: Hx Headaches - WITH ELEVATION IN BLOOD PRESSURE, Hx Migraine - WITH VALSALVAR MOVEMENT, Hx Seizures - BI-TEMPORAL INCOMPLETE FOCAL SEIZURES Psychiatric History: Reports: Hx Anxiety Denies: Hx Panic Disorder - Cancer History Cancer Type, Location and Year: BREAST CA Hx Chemotherapy: Yes - 1990 Hx Radiation Therapy: No - Surgical History Surgery Procedure, Year, and Place: CARDIAC CATHS (NO STENTS);. LEFT MASTECTOMY ;. LEFT LYMPH NODES REMOVED;. SPLENECTOMY;. RIGHT NEPHRECTOMY;. RIGHT KNEE SCOPING ([place]);. BILATERAL URETER REPAIRS A CHILD;. BLADDER REPAIR ( [place]);. TONSILS AND APPENDECTOMY YOUNG CHILD;. HEMATOMA REMOVED FROM SPINE;. UTERINE FIBROIDS REMOVED WITH D&CX3;. LITHOTRIPSY; Hx Anesthesia Reactions: Yes - Immunization History Date of Tetanus Vaccine: utd Date of Influenza Vaccine: fall 2017 Infectious Disease History: No Infectious Disease History: Denies: Traveled Outside the [place] in Last 30 Days - Family History Known Family History: Positive: Respiratory Disease - COPD - Social History Alcohol Use: None Hx Substance Use: No Substance Use Type: Reports: None Hx Tobacco Use: Yes Smoking Status (MU): Heavy Every Day Tobacco Smoker Type: Cigarettes Amount Used/How Often: 1 ppd 50 yrs Length of Time of Smoking/Using Tobacco: 50 years Have You Smoked in the Last Year: Yes Review of Systems Negative: Fever Negative: Chest Pain Positive: Shortness Of Breath, Cough Positive: Abdominal Pain Positive: Myalgia - back pain middle of shoulder blades Neurological: Other - dizziness All Other Systems Reviewed And Are Negative: Yes Physical Exam - Summary Physical Exam Summary: Constitutional: Well-developed, Well-nourished, Alert. (-) Distressed Skin: Warm, Dry HENT: Normocephalic; Atraumatic Eyes: Conjunctiva normal Neck: Musculoskeletal ROM normal neck. (-) JVD, (-) Stridor, (-) Nuchal rigidity Cardio: Rhythm regular, rate normal, Heart sounds normal; Intact distal pulses; Radial pulses are 2+ and symmetric. (-) Murmur Pulmonary/Chest wall: Tachypnea with accessory muscle use. Decreased air entry bilaterally. Mild expiratory wheezing. S/p L mastectomy. Abd: Soft, mild suprapubic tenderness, (-) Distension, (-) Guarding, (-) Rebound Musculoskeletal: (-) Edema, no tenderness of L knee Lymph: (-) Cervical adenopathy Neuro: Alert, PERRL, Oriented x3, Strength normal, Cranial nerves II-XII are grossly intact. SILT, Strength 5/5 BUE and BLE, (-) Dysmetria, (-) Nystagmus. Ambulated w walker Psych: Mood and affect Normal Triage Information Reviewed: Yes Vital Signs On Initial Exam: Initial Vitals Temp Pulse Resp BP Pulse Ox 98.5 F 72 20 175/73 99 03/25/19 10:23 03/25/19 10:23 03/25/19 10:23 03/25/19 10:23 03/25/19 10:23 Vital Signs Reviewed: Yes Procedures - Sedation Patient Received Moderate/Deep Sedation with Procedure: No Diagnostics - Vital Signs Vital Signs Temp Pulse Resp BP Pulse Ox 03/25/19 10:23 98.5 F 72 20 175/73 99 - Laboratory Result Diagrams: 03/25/19 10:44 03/25/19 10:44 Lab Statement: Any lab studies that have been ordered have been reviewed, and results considered in the medical decision making process. - Radiology CXR Radiology Interpretation Completed By: Radiologist Summary of Radiographic Findings: Vascular congestion with no pneumonia. ED physician has reviewed this report. - EKG 1041 Cardiac Rate: NL - 69bpm - arrythmia ST Segment: Normal Ectopy: None EKG Comparison: No Significant Change Summary of EKG Findings: An EKG at 1041 reveals sinus arrhythmia at 69bpm, nml axis, nml intervals. No STEMI. No acute changes. No significant change from 03/08. ED physician has reviewed and interpreted this EKG. Re-Evaluation - Re-Evaluation 1st re-eval Re-Evaluation Time: 11:59 Change: Improved Comment: States she feels better. Requested Tylenol for nml headache. Will give one more breathing tx. Course/Dx - Course Course Of Treatment: 83 y/o F w hx COPD, CHF, aortic stenosis, hypothyroidism, p /w SOB. -Admitted in July 2018 w hypercarbic resp failure on BiPAP, thought to be 2/2 COPD and PNA. Was on BiPAP in ICU, does not want BiPAP again. On arrival to ED mildly inc WOB w mild accessory muscle use. Given duoneb, steroids. Check CXR for PNA. EKG w sinus arrhythmia. CXR w/o PNA, no leukocytosis on labs. Patient improved w two DuoNeb. Given 50 of prednisone here, we'll give Levaquin for COPD exacerbation given increased sputum. She ambulated without significant knee pain, she can follow up w orthopedics. Regarding her intermittent vertigo, patient does not have any symptoms at this time, suspect peripheral cause this patient has had this in the past, has no nystagmus or dysmetria on exam. - regarding her abdominal pain, patient has mild superior tenderness, urine without evidence of infection. No evidence of infection on labs - Diagnoses Provider Diagnoses: COPD exacerbation, Lower abdominal pain Discharge ED - Sign-Out/Discharge Documenting (check all that apply): Patient Departure - Discharge Plan Condition: Stable Disposition: HOME Prescriptions: Levofloxacin TAB* [Levaquin TAB*] 750 mg PO DAILY 4 Days #4 tab predniSONE 50 mg TAB [Deltasone 50 mg TAB] 50 mg PO DAILY 3 Days #3 tab Patient Education Materials: COPD (Chronic Obstructive Pulmonary Disease) (ED) Referrals: Nancy Burciaga MD [Primary Care Provider] - Additional Instructions: You were seen in the emergency department for COPD exacerbation. Your chest x- ray did not show pneumonia. Your labs did not show any evidence of infection. We gave you prednisone steroid for 3 more days.. You also get Levaquin antibiotic for COPD exacerbation for 4 more days. Please follow up with your primary care doctor in next 2-3 days and return to emergency department for difficult to breathing, fevers, pain, worsening or concerning symptoms. It was a pleasure taking care of you today. - Billing Disposition and Condition Condition: STABLE Disposition: Home - Attestation Statements Document Initiated by Scribe: Yes Documenting Scribe: Pilar Guzmán Provider For Whom Aaron is Documenting (Include Credential): Brianna Martin MD. Scribe Attestation: I, Pilar Guzmán, scribed for Brianna Martin MD. on 03/25/19 at 1408. Scribe Documentation Reviewed: Yes Provider Attestation: The documentation as recorded by the scribe, Pilar Guzmán accurately reflects the service I personally performed and the decisions made by me, Brianna Martin MD. Status of Scribe Document: Viewed
[2019-03-25 10:53] LABS: ABS Basophils 0.1 10^3/ul (0-0.2); ABS Eosinophils 0.5 10^3/ul (0-0.6); ABS Lymphocytes 2.1 10^3/ul (1.0-4.8); Eosinophil % 5.1 %; Hematocrit 34 % (35-47); Hemoglobin 11.6 g/dL (12.0-16.0); Lymphocyte % 19.6 %; Mean Corpuscular HGB Conc 34 g/dL (31-36); Mean Corpuscular Hemoglobin 31 pg (27-31); Mean Corpuscular Volume 90 fL (80-97); Mean Platelet Volume 8.7 fL (7.4-10.4); Platelet Count 273 10^3/uL (150-450); Red Cell Distribution Width 16 % (10-15); White Blood Count 10.8 10^3/uL (3.5-10.8)
[2019-03-25] MEDS ORDERED: methylPREDNISolone 125 MG* 2 ML VIAL IV ONE (10:56)
[2019-03-25 11:08] LABS: Albumin 3.7 g/dL (3.2-5.2); Albumin/Globulin Ratio 1.2 (1-3); Calcium 9.2 mg/dL (8.6-10.3); EGFR African American 82.5 (>60); EGFR Non-African American 68.2 (>60); Globulin 3.1 g/dL (2-4); Potassium 4.4 mmol/L (3.5-5.0); Total Bilirubin 0.3 mg/dL (0.2-1.0); Total Protein 6.8 g/dL (6.4-8.9)
[2019-03-25 11:11] LABS: Troponin I 0.02 ng/mL (<0.03)
--- OUTSIDE RECORDS SUMMARY | 2019-03-25 11:12 | XMS REPORT ---
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 with with (acute) (acute) exacerbatio exacerbatio n n Chronic Chronic Diagnosis Active [place] respiratory respiratory 03-21 Carrier RN failure, failure, unspecified unspecified whether whether with with hypoxia or hypoxia or hypercapnia hypercapnia Hypertensiv Hypertensiv Diagnosis Active [place] e chronic e chronic 03-21 Carrier RN kidney kidney disease disease with stage with stage 1 through 1 through stage 4 stage 4 chronic chronic kidney kidney disease, or disease, or unspecified unspecified chronic chronic kidney kidney disease disease Chronic Chronic Diagnosis Active [place] kidney kidney 03-21 Carrier RN disease, disease, unspecified unspecified Nonrheumati Nonrheumati Diagnosis Active [place]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 03-21 Carrier RN (valve) (valve) stenosis 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 kidney kidney disease disease Atheroscler Atheroscler Diagnosis Active [place] otic heart otic heart Carrier RN disease of disease of [place] coronary coronary artery artery without without angina angina pectoris pectoris Esophageal Esophageal Diagnosis Active [place] obstruction obstruction Carrier RN Generalized Generalized Diagnosis Active [place] anxiety anxiety Carrier RN disorder disorder Nicotine Nicotine Diagnosis Active [place] dependence, dependence, Carrier RN unspecified unspecified , , uncomplicat uncomplicat ed ed Epilepsy, Epilepsy, Diagnosis Active [place] unspecified unspecified Carrier RN , not , not intractable intractable , without , without status status epilepticus epilepticus 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 Migraine, Migraine, Diagnosis Active [place] unspecified unspecified Carrier RN , not , not intractable intractable , without , without status status migrainosus migrainosus Unspecified Unspecified Diagnosis Active [place] thoracic, thoracic, 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 Unspecified Unspecified Diagnosis Active [place] osteoarthri osteoarthri Carrier RN tis, tis, unspecified unspecified site site 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 Carrier RN Hypothyroid Hypothyroid Diagnosis Active [place] ism, ism, Carrier RN unspecified unspecified 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 Dependence Dependence Diagnosis Active [place] on on Carrier RN supplementa supplementa l oxygen l oxygen 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) (current) Carrier RN use of use of aspirin aspirin MCC MCC Diagnosis Active [place] (current) (current) Carrier RN use of use of inhaled inhaled steroids steroids 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) (current) Carrier RN use of use of non-steroid non-steroid al al anti-inflam anti-inflam matories matories (NSAID) (NSAID) Personal Personal Diagnosis Active [place] history of history of Carrier RN pneumonia pneumonia (recurrent) (recurrent) 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 Pain frequent Pain Mgmt Active Aura pain 09-15 [place] 10:19: [id number] 00 Pain knowledge/s Pain Mgmt Active Aura kill 09-15 [place] deficit: pt 10:19: [id number] 00 Respiratory dyspnea Respirator Active Aura present y 09-15 [place] 10:19: [id number] 00 Respiratory oxygen Respirator Active Aura treatments y 09-15 [place] in home 10:19: [id number] 00 Respiratory nebulizer Respirator Active Aura treatment y 09-15 [place] in home 10:19: [id number] 00 Sensory impaired Sensory Active Aura hearing 09-15 [place] 10:19: [id number] 00 Nutrition nutritional Nutrition Active Aura restriction 09-15 [place] s 10:19: [id number] 00 Elimination urinary Eliminatio Active Aura incontinenc n 09-15 [place] e 10:19: [id number] 00 Neuro confusion Neuro/Emot Active Aura present ion 09-15 [place] 10:19: [id number] 00 Neuro impaired Neuro/Emot Active Aura decision-ma ion 09-15 [place] rafa 10:19: [id number] 00 Neuro memory Neuro/Emot Active Aura deficit ion 09-15 [place] needing 10:19: [id number] supervision 00 Activity ADL Activity Active Aura assistance 09-15 [place] required 10:19: [id number] 00 Activity self-care Activity Active Aura deficit 09-15 [place] 10:19: [id number] 00 Safety structural Safety Active Aura barriers 09-15 [place] present 10:19: [id number] 00 Safety fall risk Safety Active Aura factor 09-15 [place] present 10:19: [id number] 00 Safety risk for Safety Active Aura hospitaliza 09-15 [place] tion 10:19: [id number] 00 Medication oral med Meds Active Aura assistance 09-15 [place] required 10:19: [id number] 00 Medication knowledge/s Meds Active Aura kill 09-15 [place] deficit: pt 10:19: [id number] 00 Musculoskel transfer Musculoske Active Aura etal assistance letal 09-15 [place] required 10:19: [id number] 00 Musculoskel requires Musculoske Active Aura etal human letal 09-15 [place] assist to 10:19: [id number] leave home 00 Respiratory lung sounds Respirator Active [place] deficit y 09-18 Carrier RN 16:20: 00 Integument knowledge/s Integument Active [place] kill 09-18 Carrier RN deficit: pt 16:20: 00 Endo/Moy anti-coagul Endo/Moy Resolve 2019-01-31 Reina ation d 09-20 15:45:00 Addy therapy 14:00: [id number] 00 Medication potential Meds Active Reina clinically 09-20 [place] significant 14:00: [id number] medication 00 issue Elimination urinary Eliminatio Active Cherrise urgency n 7-10 [place] 13:15: [id number] 00 Elimination urinary Eliminatio Active Cherrise frequency n 7-10 [place] 13:15: [id number] 00 Elimination constipatio Eliminatio Active Cherrise n n 7-10 [place] 13:15: [id number] 00 Neuro depressive Neuro/Emot Active Cherrise feelings ion 7-17 [place] present 10:30: [id number] 00 Safety fire risk Safety Active Eilceo present 10-24 [place] 14:00: [id number] 00 Safety can be left Safety Active Eliceo alone for 10-24 [place] only short 14:00: [id number] periods 00 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 PT/OT: Resolve 2018-11-01 [place] urance rdination Balance/En d 10-24 09:55:00 Star deficit durance 14:00: [id number] 00 OT: Self self-care OT: Resolve 2018-11-01 [place] Care deficit Self-Care d 10-24 09:55:00 Star 14:00: [id number] 00 OT: Self knowledge/s OT: Resolve 2018-11-01 [place] Care kill Self-Care d 10-24 09:55:00 Star deficit: pt 14:00: [id number] 00 OT: Self knowledge/s OT: Resolve 2018-11-01 [place] Care kill Self-Care d 10-24 09:55:00 Star deficit: cg 14:00: [id number] 00 Gait/Locomo gait PT/OT: Resolve 2018-11-01 [place] tion deficit Gait/Locom d 10-24 09:55:00 Star problems otion 14:00: [id number] 00 Gait/Locomo gait PT/OT: Resolve 2018-11-01 [place] tion assistive Gait/Locom d 11-01 09:55:00 Star problems device otion 09:55: [id number] present 00 Respiratory smoker Respirator Active 2019-0 Cherrise y 9-10 [place] 11:20: [id number] 00 Elimination bowel Eliminatio Active 2018-03 Cherrise incontinenc n 0-08 [place] e 12:00: [id number] 00 Elimination diarrhea Eliminatio Active 2018-03 Cherrise n 0-08 [place] 12:00: [id number] 00 Respiratory knowledge/s Respirator Active 2018-03 [place] kill y 0-22 Carrier RN deficit: pt 17:25: 00 Medication knowledge/s Meds Active 2018-03 [place] kill 0-22 Carrier RN deficit: cg 17:25: 00 Medication knowledge/s Meds Unknown 2018-03 [place] kill 03-25 [place] deficit: cg 12:25: [id number] 00 Test/Treatm venipunctur Test/Injec Resolve 2018-032019-02-06 [place] ent e ordered t/Arcadio d 03-28 11:50:00 Carrier RN Endo/Moy anti-coagul Endo/Moy Active 2018-03 [place] ation 2 [place] therapy 11:30: [id number] 00 Safety fire risk: Safety Active 2018-03 [place] smoking/O2 2-24 Carrier RN in use 10:30: 00 Allergies, Adverse Reactions, Alerts Allergy Name Allergy Status Severity Reaction(s) Onset Inactive Treating Comments Type Date Date Clinician carbamazepin Base Active Unknown Reaction Steff e Ingredient Unknown 12-15 Malnoske RN phenytoin Base Active Unknown Reaction Steff Ingredient Unknown 12-15 Malnoske RN Sulfa Allergen Active Unknown Reaction Steff (Sulfonamide Group Unknown 12-15 Malnoske Antibiotics) RN tetracycline Base Active Unknown Reaction Steff Ingredient Unknown 12-15 Mal[place]ke RN cetirizine Base Active Unknown Reaction Cheri White patient Ingredient Unknown 5-16 not ALLERGIC Depakote Medication Active Unknown Reaction Cheri White Name ID Unknown 5-16 iodine Unknown Active Unknown Reaction Cheri White Unknown 5-16 latex Unknown Active Unknown Reaction Cheri White Unknown 5-16 zyprexa Unknown Active Unknown Reaction Cheri White Unknown 5-16 prednisone Unknown Active Unknown fluid Cheri White retention 5-16 Medications Ordered Filled Start Stop Current Ordering Indication Dosage Frequency Signature Comments Components Medication Medication Date Date Medication? Clinician (SIG) Name Name Fioricet 50 Fioricet 50 No Jander 1 tab Unknown mg-300 mg-300 MD,Nancy mg-40 mg mg-40 mg capsule capsule folic acid folic acid 2018- No Jander Unknown Unknown 1 mg tablet 1 mg tablet 09-15 ,Nancy Neurontin Neurontin No Jander 2 Cap Unknown 300 mg 300 mg MD,Nancy capsule capsule Vitamin Vitamin 2018- No Jander Unknown Unknown B-12 500 B-12 500 09-15 ,Nancy mcg tablet mcg tablet Systane Systane No Jander 1 drop Unknown Balance 0.6 Balance 0.6 MD,Nancy % eye drops % eye drops Probiotic Probiotic No Marder 1 cap Unknown 10 billion 10 billion ,Nancy cell cell capsule capsule ergocalcife ergocalcife No Jander Unknown Unknown rol rol 09-15 ,Nancy (vitamin (vitamin D2) 50,000 D2) 50,000 unit unit capsule capsule Ventolin Ventolin No Jander Unknown Unknown HFA 90 HFA 90 09-15 ,Nancy mcg/actuati mcg/actuati on aerosol on aerosol inhaler inhaler Imodium A-D Imodium A-D No Marder 1 tab Unknown 2 mg tablet 2 mg tablet ,Nancy fluticasone fluticasone No Jander Unknown Unknown propionate propionate 09-15 ,Nancy 50 50 mcg/actuati mcg/actuati on nasal on nasal spray,suspe spray,suspe nsion nsion ondansetron ondansetron No Jander Unknown Unknown 8 mg 8 mg 09-15 ,Nancy disintegrat disintegrat ing tablet ing tablet atorvastati atorvastati 2018- No Jander Unknown Unknown n 80 mg n 80 mg 09-15 ,Nancy tablet tablet Aspirin Low Aspirin Low No Jander Unknown Unknown Dose 81 mg Dose 81 mg 09-15 ,Nancy tablet,alek tablet,alek yed release yed release amLODIPine amLODIPine No Jander Unknown Unknown 10 mg 10 mg 09-15 ,Nancy tablet tablet Tussin DM Tussin DM No Jander 5 ml Unknown 10 mg-100 10 mg-100 MD,Nancy mg/5 mL mg/5 mL oral liquid oral liquid GenTeal GenTeal No apply Unknown Severe 0.3 Severe 0.3 Nancy HAYS % eye gel % eye gel lidocaine 5 lidocaine 5 No [place] 1 patch Unknown % topical % topical ,Carlos patch patch Nicoderm CQ Nicoderm CQ No Marder 21mg/24 Unknown 21 mg/24 hr 21 mg/24 hr Nancy HAYS hr daily daily transdermal transdermal patch patch HYDROcodone HYDROcodone No Jander Unknown Unknown 5 5 09-15 Nancy HAYS mg-acetamin mg-acetamin ophen 325 ophen 325 mg tablet mg tablet ipratropium ipratropium No Jander Unknown Unknown -albuterol -albuterol 09-15 Nancy HAYS 0.5 mg-3 0.5 mg-3 mg(2.5 mg mg(2.5 mg base)/3 mL base)/3 mL nebulizatio nebulizatio n soln n soln Natural Natural No Marder Unknown Unknown Fiber Fiber Nancy HAYS Laxative Laxative (aspartame) (aspartame) oral powder oral powder cetirizine cetirizine 2018- No Jander Unknown Unknown 10 mg 10 mg 09-15 Nancy HAYS tablet tablet CeleBREX CeleBREX 2018- No Jander Unknown Unknown 200 mg 200 mg 09-15 0711 Nancy HAYS capsule capsule omeprazole omeprazole No Jander Unknown Unknown 40 mg 40 mg 09-15 Nancy HAYS capsule,del capsule,del ayed ayed release release Chantix 0.5 Chantix 0.5 No Jander Unknown Unknown mg tablet mg tablet Nancy HAYS Levoxyl 25 Levoxyl No Jander Unknown Unknown mcg tablet mcg tablet 09-15 Nancy HAYS metoprolol metoprolol No Jander Unknown Unknown tartrate 25 tartrate 25 09-15 Nancy HAYS mg tablet mg tablet umeclidiniu umeclidiniu No Jander Unknown Unknown m 62.5 m 62.5 09-15 Nancy HAYS mcg/actuati mcg/actuati on blister on blister powder for powder for inhalation inhalation mirtazapine mirtazapine 2018- No Jander Unknown Unknown 15 mg 15 mg 09-15 ,Nancy tablet tablet mirtazapine mirtazapine 2018- No Jander Unknown Unknown 7.5 mg 7.5 mg 09-15 MD,Nancy tablet tablet Colace 100 Colace 100 No Jander Unknown Unknown mg capsule mg capsule 09-15 ,Nancy GenTeal GenTeal No Jander Unknown Unknown Tears Tears 09-15 ,Nancy Severe 0.3 Severe 0.3 % eye gel % eye gel nicotine 14 nicotine 14 No Jander Unknown Unknown mg/24 hr mg/24 hr 09-15 ,Nancy daily daily transdermal transdermal patch patch Mucinex DM Mucinex DM 2018- No Jander Unknown Unknown 30 mg-600 30 mg-600 09-15 ,Nancy mg mg tablet,exte tablet,exte nded nded release 12 release 12 hr hr Dry Eye Dry Eye No Jander Unknown Unknown Relief 1 Relief 1 09-15 ,Nancy %-0.2 %-0.2 %-0.2 %-0.2 % drops % drops butalbital- butalbital- No Jander Unknown Unknown acetaminoph acetaminoph 09-15 ,Nancy en-caffeine en-caffeine 50 mg-325 50 mg-325 mg-40 mg mg-40 mg capsule capsule nystatin nystatin No Jander Unknown Unknown 100,000 100,000 09-15 ,Nancy unit/mL unit/mL oral oral suspension suspension gabapentin gabapentin 2018- No Jander Unknown Unknown 300 mg 300 mg 09-15 ,Nancy capsule capsule Tylenol Tylenol No Jander Unknown Unknown Extra Extra 09-15 ,Nancy Strength Strength 500 mg 500 mg tablet tablet Vitamin C Vitamin C 2018- No Jander Unknown Unknown 500 mg 500 mg 09-15 ,Nancy tablet tablet Iron Iron 2018- No Jander Unknown Unknown (ferrous (ferrous 09-15 ,Nancy sulfate) sulfate) 325 mg (65 325 mg (65 mg iron) mg iron) tablet tablet Systane Systane No Jander Unknown Unknown Balance 0.6 Balance 0.6 09-15 MD,Nancy % eye drops % eye drops oxygen oxygen No Jander Unknown Unknown 09-15 ,Nancy CeleBREX CeleBREX 2018- No Jander Unknown Unknown 200 mg 200 mg 09-28 MD,Nancy capsule capsule mirtazapine mirtazapine 2018- No Jander Unknown Unknown 15 mg 15 mg 09-28 MD,Nancy tablet tablet mirtazapine mirtazapine 2018- No Jander Unknown Unknown 7.5 mg 7.5 mg 09-28 MD,Nancy tablet tablet gabapentin gabapentin No Jander Unknown Unknown 300 mg 300 mg 09-28 MD,Nancy capsule capsule gabapentin gabapentin No Jander Unknown Unknown 300 mg 300 mg 09-28 MD,Nancy capsule capsule Zantac 75 Zantac 75 2018- No Jander Unknown Unknown mg tablet mg tablet 09-27 ,Nancy Mucinex DM Mucinex DM No Jander Unknown Unknown 30 mg-600 30 mg-600 09-27 ,Nancy mg mg tablet,exte tablet,exte nded nded release 12 release 12 hr hr Vitamin C Vitamin C No Jander Unknown Unknown 500 mg 500 mg 09-15 ,Nancy tablet tablet Iron Iron 2018- No Jander Unknown Unknown (ferrous (ferrous 09-15 ,Nancy sulfate) sulfate) 325 mg (65 325 mg (65 mg iron) mg iron) tablet tablet folic acid folic acid No Jander Unknown Unknown 1 mg tablet 1 mg tablet 09-15 ,Nancy Vitamin Vitamin No Jander Unknown Unknown B-12 500 B-12 500 09-15 ,Nancy mcg tablet mcg tablet Robitussin Robitussin No Jander Unknown Unknown Nighttime Nighttime 10-18 MD,Nancy Cough DM Cough DM 12.5 mg-30 12.5 mg-30 mg/10 mL mg/10 mL oral liquid oral liquid Salonpas Salonpas No Jander Unknown Unknown (methyl (methyl 10-18 ,Nancy salicylate- salicylate- menthol) 10 menthol) 10 %-3 % %-3 % topical topical patch patch mirtazapine mirtazapine No Jander Unknown Unknown 15 mg 15 mg 09-28 MD,Nancy tablet tablet atorvastati atorvastati 2018- Jander Unknown Unknown n 80 mg n 80 mg 12-12- MD,Nancy tablet tablet atorvastati atorvastati 2018-03 Yes Jander Unknown Unknown n 40 mg n 40 mg 0-08 MD,Nancy tablet tablet omeprazole omeprazole No Jander Unknown Unknown 40 mg 40 mg 12-12 MD,Nancy capsule,del capsule,del ayed ayed release release cetirizine cetirizine No Jander Unknown Unknown 10 mg 10 mg 09-15 MD,Nancy tablet tablet mirtazapine mirtazapine No Jander Unknown Unknown 7.5 mg 7.5 mg 09-28 MD,Nancy tablet tablet Iron Iron No Jander Unknown Unknown (ferrous (ferrous 12-12 MD,Nancy sulfate) sulfate) 325 mg (65 325 mg (65 mg iron) mg iron) tablet tablet Vital Signs Vital Name Observation Time Observation Value Comments SYSTOLIC mm[Hg] 2019-03-21 18:09:39 118 mm[Hg] mm[Hg] Method: Sit SYSTOLIC mm[Hg] 2018-09-15 18:06:32 110 mm[Hg] mm[Hg] Method: Stand DIASTOLIC mm[Hg] 2019-03-21 18:09:39 64 mm[Hg] mm[Hg] Method: Sit DIASTOLIC mm[Hg] 2018-09-15 18:06:32 60 mm[Hg] mm[Hg] Method: Stand PULSE 2019-03-20 18:09:38 60 /min /min RESP RATE 2019-03-20 18:09:38 18 /min /min TEMP 2019-03-20 18:09:38 97.7 [degF] Procedures This patient has no known procedures. Results This patient has no known results.
--- OUTSIDE RECORDS SUMMARY | 2019-03-25 11:12 | XMS REPORT ---
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 [place] (current) (current) Carrier RN use of use of non-steroid non-steroid al al anti-inflam anti-inflam matories matories (NSAID) (NSAID) Personal Personal Diagnosis Active [place] history of history of Carrier RN pneumonia pneumonia (recurrent) (recurrent) 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 Pain frequent Pain Mgmt Active Aura pain 09-15 [place] 10:19: [id number] 00 Pain knowledge/s Pain Mgmt Active Aura kill 09-15 [place] deficit: pt 10:19: [id number] 00 Respiratory dyspnea Respirator Active Aura present y 09-15 [place] 10:19: [id number] 00 Respiratory oxygen Respirator Active Aura treatments y 09-15 [place] in home 10:19: [id number] 00 Respiratory nebulizer Respirator Active Aura treatment y 09-15 [place] in home 10:19: [id number] 00 Sensory impaired Sensory Active Aura hearing 09-15 [place] 10:19: [id number] 00 Nutrition nutritional Nutrition Active Aura restriction 09-15 [place] s 10:19: [id number] 00 Elimination urinary Eliminatio Active Aura incontinenc n 09-15 [place] e 10:19: [id number] 00 Neuro confusion Neuro/Emot Active Aura present ion 09-15 [place] 10:19: [id number] 00 Neuro impaired Neuro/Emot Active Aura decision-ma ion 09-15 [place] rafa 10:19: [id number] 00 Neuro memory Neuro/Emot Active Aura deficit ion 09-15 [place] needing 10:19: [id number] supervision 00 Activity ADL Activity Active Aura assistance 09-15 [place] required 10:19: [id number] 00 Activity self-care Activity Active Aura deficit 09-15 [place] 10:19: [id number] 00 Safety structural Safety Active Aura barriers 09-15 [place] present 10:19: [id number] 00 Safety fall risk Safety Active Aura factor 09-15 [place] present 10:19: [id number] 00 Safety risk for Safety Active Aura hospitaliza 09-15 [place] tion 10:19: [id number] 00 Medication oral med Meds Active Aura assistance 09-15 [place] required 10:19: [id number] 00 Medication knowledge/s Meds Active Aura kill 09-15 [place] deficit: pt 10:19: [id number] 00 Musculoskel transfer Musculoske Active Aura etal assistance letal 09-15 [place] required 10:19: [id number] 00 Musculoskel requires Musculoske Active Aura etal human letal 09-15 [place] assist to 10:19: [id number] leave home 00 Respiratory lung sounds Respirator Active [place] deficit y 09-18 Carrier RN 16:20: 00 Integument knowledge/s Integument Active [place] kill 09-18 Carrier RN deficit: pt 16:20: 00 Endo/Moy anti-coagul Endo/Moy Resolve 2019-01-31 Reina ation d 09-20 15:45:00 Addy therapy 14:00: [id number] 00 Medication potential Meds Active Reina clinically 09-20 [place] significant 14:00: [id number] medication 00 issue Elimination urinary Eliminatio Active Cherrise urgency n 7-10 [place] 13:15: [id number] 00 Elimination urinary Eliminatio Active Cherrise frequency n 7-10 [place] 13:15: [id number] 00 Elimination constipatio Eliminatio Active Cherrise n n 7-10 [place] 13:15: [id number] 00 Neuro depressive Neuro/Emot Active Cherrise feelings ion 7-17 [place] present 10:30: [id number] 00 Safety fire risk Safety Active Eliceo present 10-24 [place] 14:00: [id number] 00 Safety can be left Safety Active [place] alone for 10-24 [place] only short 14:00: [id number] periods 00 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 PT/OT: Resolve 2018-11-01 [place] urance rdination Balance/En d 10-24 09:55:00 Star deficit durance 14:00: [id number] 00 OT: Self self-care OT: Resolve 2018-11-01 Eliceo Care deficit Self-Care d 10-24 09:55:00 Star 14:00: [id number] 00 OT: Self knowledge/s OT: Resolve 2018-11-01 [place]iceo Care kill Self-Care d 10-24 09:55:00 Star deficit: pt 14:00: [id number] 00 OT: Self knowledge/s OT: Resolve 2018-11-01 Eliceo Care kill Self-Care d 10-24 09:55:00 Star deficit: cg 14:00: [id number] 00 Gait/Locomo gait PT/OT: Resolve 2018-11-01 Eliceo tion deficit Gait/Locom d 10-24 09:55:00 Star problems otion 14:00: [id number] 00 Gait/Locomo gait PT/OT: Resolve 2018-11-01 [place] tion assistive Gait/Locom d 11-01 09:55:00 Star problems device otion 09:55: [id number] present 00 Respiratory smoker Respirator Active 2019-0 Cherrise y 9-10 [place] 11:20: [id number] 00 Elimination bowel Eliminatio Active 2018-03 Cherrise incontinenc n 0-08 [place] e 12:00: [id number] 00 Elimination diarrhea Eliminatio Active 2018-03 Cherrise n 0-08 [place] 12:00: [id number] 00 Respiratory knowledge/s Respirator Active 2018-03 [place] kill y 0-22 Carrier RN deficit: pt 17:25: 00 Medication knowledge/s Meds Active 2018-03 [place] kill 0-22 Carrier RN deficit: cg 17:25: 00 Medication knowledge/s Meds Unknown 2018-03 [place] kill 03-25 [place] deficit: cg 12:25: [id number] 00 Test/Treatm venipunctur Test/Injec Resolve 2018-032019-02-06 [place] ent e ordered t/Arcadio d 03-28 11:50:00 Carrier RN Endo/Moy anti-coagul Endo/Moy Active 2018-03 Toby ation 2 [place] therapy 11:30: [id number] 00 Safety fire risk: Safety Active 2018-03 [...]
--- OUTSIDE RECORDS SUMMARY | 2019-03-25 11:12 | XMS REPORT ---
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 with with (acute) (acute) exacerbatio exacerbatio n n Hypertensiv Hypertensiv Diagnosis Active [place] e chronic e chronic 09-05 Carrier RN kidney kidney disease disease with stage with stage 1 through 1 through stage 4 stage 4 chronic chronic kidney kidney disease, or disease, or unspecified unspecified chronic chronic kidney kidney disease disease Chronic Chronic Diagnosis Active [place] kidney kidney 09-05 Carrier RN disease, disease, unspecified unspecified 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 nonautoimmu 09-05 Carrier RN ne ne hemolytic hemolytic anemias anemias Atheroscler Atheroscler Diagnosis Active [place] otic heart otic heart 09-05 Carrier RN disease of disease of minto minto coronary coronary artery artery without without angina angina pectoris pectoris Esophageal Esophageal Diagnosis Active [place] obstruction obstruction Carrier RN Generalized Generalized Diagnosis Active [place] anxiety anxiety Carrier RN disorder disorder Epilepsy, Epilepsy, Diagnosis Active [place] unspecified unspecified Carrier RN , not , not intractable intractable , without , without status status epilepticus epilepticus Nonrheumati Nonrheumati Diagnosis Active [place]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 Carrier RN (valve) (valve) 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 Carrier RN Trochanteri Trochanteri Diagnosis Active [place] c bursitis, c bursitis, Carrier RN left hip left hip Unspecified Unspecified Diagnosis Active [place] thoracic, thoracic, 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 Unspecified Unspecified Diagnosis Active [place] osteoarthri osteoarthri Carrier RN tis, tis, unspecified unspecified site site Age-related Age-related Diagnosis Active [place] osteoporosi osteoporosi Carrier RN s without s without current current pathologica pathologica l fracture l fracture Vasomotor Vasomotor Diagnosis Active [place] rhinitis rhinitis Carrier RN 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 Dependence Dependence Diagnosis Active [place] on on Carrier RN supplementa supplementa l oxygen l oxygen 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) Carrier RN use of use of aspirin aspirin 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 Diagnosis Active [place] (current) (current) Carrier RN use of use of opiate opiate analgesic analgesic 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[place] (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) (current) Carrier RN use of use of inhaled inhaled steroids steroids shelter shelter Diagnosis Active [place] (current) (current) Carrier RN use of use of non-steroid non-steroid al al anti-inflam anti-inflam matories matories (NSAID) (NSAID) Personal Personal Diagnosis Active [place] history of history of Carrier RN pneumonia pneumonia (recurrent) (recurrent) Personal Personal Diagnosis Active [place] 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 Pain frequent Pain Mgmt Active Aura pain 09-15 [place] 10:19: [id number] Pain knowledge/s Pain Mgmt Active Aura kill 09-15 [place] deficit: pt 10:19: [id number] 00 Respiratory dyspnea Respirator Active Aura present y 09-15 [place] 10:19: [id number] 00 Respiratory oxygen Respirator Active Aura treatments y 09-15 [place] in home 10:19: [id number] 00 Respiratory nebulizer Respirator Active Aura treatment y 09-15 [place] in home 10:19: [id number] 00 Sensory impaired Sensory Active Aura hearing 09-15 [place] 10:19: [id number] 00 Nutrition nutritional Nutrition Active Aura restriction 09-15 [place] s 10:19: [id number] 00 Elimination urinary Eliminatio Active Aura incontinenc n 09-15 [place] e 10:19: [id number] 00 Neuro confusion Neuro/Emot Active Aura present ion 09-15 [place] 10:19: [id number] 00 Neuro impaired Neuro/Emot Active Aura decision-ma ion 09-15 [place] rafa 10:19: [id number] 00 Neuro memory Neuro/Emot Active Aura deficit ion 09-15 [place] needing 10:19: [id number] supervision 00 Activity ADL Activity Active Aura assistance 09-15 [place] required 10:19: [id number] 00 Activity self-care Activity Active Aura deficit 09-15 [place] 10:19: [id number] 00 Safety structural Safety Active Aura barriers 09-15 [place] present 10:19: [id number] 00 Safety fall risk Safety Active Aura factor 09-15 [place] present 10:19: [id number] 00 Safety risk for Safety Active Aura hospitaliza 09-15 [place] tion 10:19: [id number] 00 Medication oral med Meds Active Aura assistance 09-15 [place] required 10:19: [id number] 00 Medication knowledge/s Meds Active Aura kill 09-15 [place] deficit: pt 10:19: [id number] 00 Musculoskel transfer Musculoske Active Aura etal assistance letal 09-15 [place] required 10:19: [id number] 00 Musculoskel requires Musculoske Active Aura etal human letal 09-15 [place] assist to 10:19: [id number] leave home 00 Respiratory lung sounds Respirator Active [place] deficit y 09-18 Carrier RN 16:20: 00 Integument knowledge/s Integument Active [place] kill 09-18 Carrier RN deficit: pt 16:20: 00 Endo/Moy anti-coagul Endo/Moy Resolve 2019-01-31 Reina zhao d 09-20 15:45:00 Addy therapy 14:00: [id number] 00 Medication potential Meds Active Reina clinically 09-20 Addy significant 14:00: [id number] medication 00 issue Elimination urinary Eliminatio Active Cherrise urgency n 7-10 [place] 13:15: [id number] 00 Elimination urinary Eliminatio Active Cherrise frequency n 7-10 [place] 13:15: [id number] 00 Elimination constipatio Eliminatio Active Cherrise n n 7-10 [place] 13:15: [id number] 00 Neuro depressive Neuro/Emot Active Cherrise feelings ion 7-17 [place] present 10:30: [id number] 00 Safety fire risk Safety Active Eliceo present 10-24 [place] 14:00: [id number] 00 Safety can be left Safety Active [place] alone for 10-24 [place] only short 14:00: [id number] periods 00 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 PT/OT: Resolve 2018-11-01 [place] urance rdination Balance/En d 10-24 09:55:00 Star deficit durance 14:00: [id number] 00 OT: Self self-care OT: Resolve 2018-11-01 Eliceo Care deficit Self-Care d 10-24 09:55:00 Star 14:00: [id number] 00 OT: Self knowledge/s OT: Resolve 2018-11-01 [place] Care kill Self-Care d 10-24 09:55:00 Star deficit: pt 14:00: [id number] 00 OT: Self knowledge/s OT: Resolve 2018-11-01 [place] Care kill Self-Care d 10-24 09:55:00 Star deficit: cg 14:00: [id number] 00 Gait/Locomo gait PT/OT: Resolve 2018-11-01 Eliceo tion deficit Gait/Locom d 10-24 09:55:00 [place] problems otion 14:00: [id number] 00 Gait/Locomo gait PT/OT: Resolve 2018-11-01 Eliceo tion assistive Gait/Locom d 11-01 09:55:00 Star problems device otion 09:55: [id number] present 00 Respiratory smoker Respirator Active Cherrise y 9- [place] 11:20: [id number] 00 Elimination bowel Eliminatio Active 2018-03 Cherrise incontinenc n 0-08 [place] e 12:00: [id number] 00 Elimination diarrhea Eliminatio Active 2018-03 Cherrise n 0-08 José Luis 12:00: [id number] 00 Respiratory knowledge/s Respirator Active 2018-03 [place] kill y 0-22 Carrier RN deficit: pt 17:25: 00 Medication knowledge/s Meds Active 2018-03 [place] kill 0-22 Carrier RN deficit: cg 17:25: 00 Medication knowledge/s Meds Unknown 2018-03 Toby kill 105 [place] deficit: cg 12:25: [id number] 00 Test/Treatm venipunctur Test/Injec Resolve 2018-032019-02-06 [place] ent e ordered t/Arcadio d 03-28 11:50:00 Carrier RN Endo/Moy anti-coagul Endo/Moy Active 2018-03 Toby ation 2-03 [place] therapy 11:30: [id number] 00 Safety fire risk: Safety Active 2018-03 [...] Name Name Fioricet 50 Fioricet 50 No Marder 1 tab Unknown mg-300 mg-300 MD,Nancy mg-40 [...] inhaler inhaler Imodium A-D Imodium A-D No Jander 1 tab Unknown 2 mg tablet 2 [...] Dose 81 mg Dose 81 mg 09-15 MD,Nancy tablet,alek tablet,alek yed release yed release amLODIPine amLODIPine No Jander Unknown Unknown 10 mg 10 mg 09-15 MD,Nancy tablet tablet Tussin DM Tussin DM No Jander 5 ml Unknown 10 mg-100 10 mg-100 MD,Nancy mg/5 mL mg/5 mL oral liquid oral liquid GenTeal GenTeal No Jander apply Unknown Severe 0.3 Severe 0.3 Nancy HAYS % eye gel % eye gel lidocaine 5 lidocaine 5 No [place] 1 patch Unknown % topical % topical Carlos HAYS patch patch Nicoderm CQ Nicoderm CQ No Marder 21mg/24 Unknown 21 mg/24 hr 21 mg/24 hr Nancy HAYS hr daily daily transdermal transdermal patch patch HYDROcodone HYDROcodone No Marder Unknown Unknown 5 5 09-15 Nancy HAYS mg-acetamin mg-acetamin ophen 325 ophen 325 mg tablet mg tablet ipratropium ipratropium No Marder Unknown Unknown -albuterol -albuterol 09-15 Nancy HAYS [...] Unknown Unknown 200 mg 200 mg 09-15 Nancy HAYS capsule capsule omeprazole omeprazole No Marder Unknown Unknown 40 mg 40 mg 09-15 Nancy HAYS capsule,del capsule,del ayed ayed release release Chantix 0.5 Chantix 0.5 No Jander Unknown Unknown mg tablet mg tablet Nancy HAYS Levoxyl 25 Levoxyl 25 No Jander Unknown Unknown mcg tablet mcg [...] Unknown Unknown 15 mg 15 mg 09-15 Ramos HAYSia tablet tablet mirtazapine mirtazapine 2018- No Jander Unknown Unknown 7.5 mg 7.5 mg 09-15 ,Nancy tablet tablet Colace 100 Colace 100 No Jander Unknown Unknown mg capsule mg capsule 09-15 Nancy HAYS GenTeal GenTeal No Jander Unknown Unknown Tears Tears 09-15 Nancy HAYS Severe 0.3 Severe 0.3 % eye gel % eye gel nicotine 14 nicotine 14 No Jander Unknown Unknown mg/24 hr mg/24 hr 09-15 Nancy HAYS daily daily transdermal transdermal patch patch Mucinex DM Mucinex DM 2018- No Jander Unknown Unknown 30 mg-600 30 mg-600 09-15 0710 ,Nancy mg mg tablet,exte tablet,exte nded nded release 12 release 12 hr hr Dry Eye Dry Eye No Jander Unknown Unknown Relief 1 Relief 1 09-15 ,Nancy %-0.2 %-0.2 %-0.2 %-0.2 % drops % drops butalbital- butalbital- No Jander Unknown Unknown acetaminoph acetaminoph 09-15 Nancy HAYS en-caffeine en-caffeine 50 mg-325 50 mg-325 mg-40 mg mg-40 mg capsule capsule nystatin nystatin No Jander Unknown Unknown 100,000 100,000 09-15 Nancy HAYS unit/mL unit/mL oral oral suspension suspension gabapentin gabapentin 2018- No Jander Unknown Unknown 300 mg 300 mg 09-15 Nancy HAYS capsule capsule Tylenol Tylenol No Jander Unknown Unknown Extra Extra 09-15 Nancy HAYS Strength Strength 500 mg 500 mg tablet tablet Vitamin C Vitamin C 2018- No Jander Unknown Unknown 500 mg 500 mg 09-15 ,Nancy tablet tablet Iron Iron 2018- No Jander Unknown Unknown (ferrous (ferrous 09-15 ,Nancy sulfate) sulfate) 325 mg (65 325 mg (65 mg iron) mg iron) tablet tablet Systane Systane No Jander Unknown Unknown Balance 0.6 Balance 0.6 09-15 Nancy HAYS % eye drops % eye drops oxygen oxygen No Jander Unknown Unknown 09-15 Ramos HAYSia CeleBREX CeleBREX 2018- No Jander Unknown Unknown [...] Unknown Unknown 30 mg-600 30 mg-600 09-27 MD,Nancy mg mg tablet,exte tablet,exte nded nded release 12 release 12 hr hr Vitamin C Vitamin C No Jander Unknown Unknown 500 mg 500 mg 09-15 MD,Nancy tablet tablet Iron Iron 2018- No Jander [...] No Jander Unknown Unknown Nighttime Nighttime 10-18 ,Nancy Cough DM Cough DM 12.5 mg-30 12.5 [...] Unknown n 80 mg n 80 mg 12-12 10- MD,Nancy tablet tablet atorvastati atorvastati 2018-03 Yes Jander Unknown Unknown n 40 mg n 40 mg 0- MD,Nancy tablet tablet omeprazole omeprazole No Jander Unknown Unknown 40 mg 40 mg 12-12 MD,Nancy capsule,del capsule,del ayed ayed release release cetirizine cetirizine No Jander Unknown Unknown 10 mg 10 mg 09-15 MD,Nancy tablet tablet mirtazapine mirtazapine No Jander Unknown Unknown 7.5 mg 7.5 mg 7 MD,Nancy tablet tablet Iron Iron No Jander Unknown Unknown (ferrous (ferrous 12-12 MD,Nancy sulfate) sulfate) 325 mg (65 325 mg (65 mg iron) mg iron) tablet tablet Vital Signs Vital Name Observation Time Observation Value Comments SYSTOLIC mm[Hg] 2019-03-13 18:09:31 132 mm[Hg] mm[Hg] Method: Sit SYSTOLIC mm[Hg] 2018-09-15 18:06:32 110 mm[Hg] mm[Hg] Method: Stand DIASTOLIC mm[Hg] 2019-03-13 18:09:31 70 mm[Hg] mm[Hg] Method: Sit DIASTOLIC mm[Hg] 2018-09-15 18:06:32 60 mm[Hg] mm[Hg] Method: Stand PULSE 2019-03-13 18:09:31 70 /min /min RESP RATE 2019-03-13 18:09:31 18 /min /min TEMP 2019-03-13 18:09:31 98.1 [degF] Procedures This patient has no known procedures. Results This patient has no known results.
--- OUTSIDE RECORDS SUMMARY | 2019-03-25 11:12 | XMS REPORT ---
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) (current) Carrier RN use of use of aspirin aspirin correction correction Diagnosis Active [place] (current) (current) Carrier RN use of use of inhaled inhaled steroids steroids 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[place] (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) (current) Carrier RN use of use of non-steroid non-steroid al al anti-inflam anti-inflam matories matories (NSAID) (NSAID) Personal Personal Diagnosis Active [place] history of history of Carrier RN pneumonia pneumonia (recurrent) (recurrent) 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 Pain frequent Pain Mgmt Active Aura pain 09-15 [place] 10:19: [id number] 00 Pain knowledge/s Pain Mgmt Active Aura kill 09-15 [place] deficit: pt 10:19: [id number] 00 Respiratory dyspnea Respirator Active Aura present y 09-15 [place] 10:19: [id number] 00 Respiratory oxygen Respirator Active Aura treatments y 09-15 [place] in home 10:19: [id number] 00 Respiratory nebulizer Respirator Active Aura treatment y 09-15 [place] in home 10:19: [id number] 00 Sensory impaired Sensory Active Aura hearing 09-15 [place] 10:19: [id number] 00 Nutrition nutritional Nutrition Active Aura restriction 09-15 Elsie s 10:19: [id number] 00 Elimination urinary Eliminatio Active Aura incontinenc n 09-15 Elsie e 10:19: [id number] 00 Neuro confusion Neuro/Emot Active Aura present ion 09-15 [place] 10:19: [id number] 00 Neuro impaired Neuro/Emot Active Aura decision-ma ion 09-15 [place] rafa 10:19: [id number] 00 Neuro memory Neuro/Emot Active Aura deficit ion 09-15 [place] needing 10:19: [id number] supervision 00 Activity ADL Activity Active Aura assistance 09-15 [place] required 10:19: [id number] 00 Activity self-care Activity Active Aura deficit 09-15 [place] 10:19: [id number] 00 Safety structural Safety Active Aura barriers 09-15 [place]sie present 10:19: [id number] 00 Safety fall risk Safety Active Aura factor 09-15 [place] present 10:19: [id number] 00 Safety risk for Safety Active Aura hospitaliza 09-15 Elsie tion 10:19: [id number] 00 Medication oral med Meds Active Aura assistance 09-15 [place] required 10:19: [id number] 00 Medication knowledge/s Meds Active Aura kill 09-15 [place] deficit: pt 10:19: [id number] 00 Musculoskel transfer Musculoske Active Aura etal assistance letal 09-15 [place] required 10:19: [id number] 00 Musculoskel requires Musculoske Active Aura etal human letal 09-15 [place] assist to 10:19: [id number] leave home 00 Respiratory lung sounds Respirator Active [place] deficit y 09-18 Carrier RN 16:20: 00 Integument knowledge/s Integument Active [place] kill 09-18 Carrier RN deficit: pt 16:20: 00 Endo/Moy anti-coagul Endo/Moy Resolve 2019-01-31 Reina ation d 09-20 15:45:00 Addy therapy 14:00: [id number] 00 Medication potential Meds Active Reina clinically 09-20 Addy significant 14:00: [id number] medication 00 issue Elimination urinary Eliminatio Active Cherrise urgency n 7-10 [place] 13:15: [id number] 00 Elimination urinary Eliminatio Active Cherrise frequency n 7-10 [place] 13:15: [id number] 00 Elimination constipatio Eliminatio Active Cherrise n n 7-10 [place] 13:15: [id number] 00 Neuro depressive Neuro/Emot Active Cherrise feelings ion 7-17 [place] present 10:30: [id number] 00 Safety fire risk Safety Active [place]ice[place] present 10-24 [place] 14:00: [id number] 00 Safety can be left Safety Active [place] alone for 10-24 [place] only short 14:00: [id number] periods 00 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 PT/OT: Resolve 2018-11-01 [place] urance rdination Balance/En d 10-24 09:55:00 Star deficit durance 14:00: [id number] 00 OT: Self self-care OT: Resolve 2018-11-01 [place]ice[place] Care deficit Self-Care d 10-24 09:55:00 Star 14:00: [id number] 00 OT: Self knowledge/s OT: Resolve 2018-11-01 [place] Care kill Self-Care d 10-24 09:55:00 Star deficit: pt 14:00: [id number] 00 OT: Self knowledge/s OT: Resolve 2018-11-01 [place] Care kill Self-Care d 10-24 09:55:00 Star deficit: cg 14:00: [id number] 00 Gait/Locomo gait PT/OT: Resolve 2018-11-01 [place] tion deficit Gait/Locom d 10-24 09:55:00 Star problems otion 14:00: [id number] 00 Gait/[place]ocomo gait PT/OT: Resolve 2018-11-01 [place]iceo tion assistive Gait/Locom d 11-01 09:55:00 Star problems device otion 09:55: [id number] present 00 Respiratory smoker Respirator Active 2019-0 Cherrise y 9-10 [place] 11:20: [id number] 00 Elimination bowel Eliminatio Active 2018-03 Cherrise incontinenc n 0-08 [place] e 12:00: [id number] 00 Elimination diarrhea Eliminatio Active 2018-03 Cherrise n 0-08 José Luis 12:00: [id number] 00 Respiratory knowledge/s Respirator Active 2018-03 [place] kill y 0-22 Carrier RN deficit: pt 17:25: 00 Medication knowledge/s Meds Active 2018-03 [place] kill 0-22 Carrier RN deficit: cg 17:25: 00 Medication knowledge/s Meds Unknown 2018-03 [place] kill 03-25 [place] deficit: cg 12:25: [id number] 00 Test/Treatm venipunctur Test/Injec Resolve 2018-032019-02-06 [place] ent e ordered t/Arcadio d 03-28 11:50:00 Carrier RN Endo/Moy anti-coagul Endo/Moy Active 2018-03 Toby ation 2 [place] therapy 11:30: [id number] 00 Safety fire risk: Safety Active 2018-03 [...] Unknown Unknown 15 mg 15 mg 09-28 MD,Nnacy tablet tablet atorvastati atorvastati 2018- Jander Unknown Unknown n 80 mg n 80 mg 12-12 MD,Nancy tablet tablet atorvastati atorvastati 2018-03 Yes [...]
--- OUTSIDE RECORDS SUMMARY | 2019-03-25 11:12 | XMS REPORT ---
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 [...] RN supplementa supplementa l oxygen l oxygen long-term long term Diagnosis Active [place] (current) (current) Carrier RN use of use of aspirin aspirin long term long-term Diagnosis Active [place] (current) (current) Carrier RN use of use of opiate opiate analgesic analgesic long term long term Diagnosis Active [place] (current) (current) Carrier RN use of use of inhaled inhaled steroids steroids long-term long-term Diagnosis Active [place] (current) (current) Carrier RN use of use of non-steroid non-steroid al al anti-inflam anti-inflam matories matories (NSAID) (NSAID) Personal Personal Diagnosis Active [place] history of history of Carrier RN pneumonia pneumonia (recurrent) (recurrent) Personal Personal Diagnosis Active [place] 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 Pain frequent Pain Mgmt Active Aura pain 09-15 [place] 10:19: [id number] Pain knowledge/s Pain Mgmt Active Aura kill 09-15 [place] deficit: pt 10:19: [id number] 00 Respiratory dyspnea Respirator Active Aura present y 09-15 [place] 10:19: [id number] 00 Respiratory oxygen Respirator Active Aura treatments y 09-15 [place] in home 10:19: [id number] 00 Respiratory nebulizer Respirator Active Aura treatment y 09-15 [place] in home 10:19: [id number] 00 Sensory impaired Sensory Active Aura hearing 09-15 [place] 10:19: [id number] 00 Nutrition nutritional Nutrition Active Aura restriction 09-15 [place] s 10:19: [id number] 00 Elimination urinary Eliminatio Active Aura incontinenc n 09-15 [place] e 10:19: [id number] 00 Neuro confusion Neuro/Emot Active Aura present ion 09-15 [place] 10:19: [id number] 00 Neuro impaired Neuro/Emot Active Aura decision-ma ion 09-15 [place] rafa 10:19: [id number] 00 Neuro memory Neuro/Emot Active Aura deficit ion 09-15 [place] needing 10:19: [id number] supervision 00 Activity ADL Activity Active Aura assistance 09-15 [place] required 10:19: [id number] 00 Activity self-care Activity Active Aura deficit 09-15 [place] 10:19: [id number] 00 Safety structural Safety Active Aura barriers 09-15 [place] present 10:19: [id number] 00 Safety fall risk Safety Active Aura factor 09-15 [place] present 10:19: [id number] 00 Safety risk for Safety Active Aura hospitaliza 09-15 [place] tion 10:19: [id number] 00 Medication oral med Meds Active Aura assistance 09-15 [place] required 10:19: [id number] 00 Medication knowledge/s Meds Active Aura kill 09-15 [place] deficit: pt 10:19: [id number] 00 Musculoskel transfer Musculoske Active Aura etal assistance letal 09-15 [place] required 10:19: [id number] 00 Musculoskel requires Musculoske Active Aura etal human letal 09-15 [place] assist to 10:19: [id number] leave home 00 Respiratory lung sounds Respirator Active [place] deficit y 09-18 Carrier RN 16:20: 00 Integument knowledge/s Integument Active [place] kill 09-18 Carrier RN deficit: pt 16:20: 00 Endo/Moy anti-coagul Endo/Moy Resolve 2019-01-31 Reina zhao d 09-20 15:45:00 Addy therapy 14:00: [id number] 00 Medication potential Meds Active Reina clinically 09-20 Addy significant 14:00: [id number] medication 00 issue Elimination urinary Eliminatio Active Cherrise urgency n 7-10 [place] 13:15: [id number] 00 Elimination urinary Eliminatio Active Cherrise frequency n 7-10 [place] 13:15: [id number] 00 Elimination constipatio Eliminatio Active Cherrise n n 7-10 [place] 13:15: [id number] 00 Neuro depressive Neuro/Emot Active Cherrise feelings ion 7-17 [place] present 10:30: [id number] 00 Safety fire risk Safety Active Eliceo present 10-24 [place] 14:00: [id number] 00 Safety can be left Safety Active Eliceo alone for 10-24 [place] only short 14:00: [id number] periods 00 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 PT/OT: Resolve 2018-11-01 [place] urance rdination Balance/En d 10-24 09:55:00 Star deficit durance 14:00: [id number] 00 OT: Self self-care OT: Resolve 2018-11-01 Eliceo Care deficit Self-Care d 10-24 09:55:00 [place] 14:00: [id number] 00 OT: Self knowledge/s OT: Resolve 2018-11-01 [place] Care kill Self-Care d 10-24 09:55:00 Star deficit: pt 14:00: [id number] 00 OT: Self knowledge/s OT: Resolve 2018-11-01 [place] Care kill Self-Care d 10-24 09:55:00 Star deficit: cg 14:00: [id number] 00 Gait/Locomo gait PT/OT: Resolve 2018-11-01 [place] tion deficit Gait/Locom d 10-24 09:55:00 [place] problems otion 14:00: [id number] 00 Gait/Locomo gait PT/OT: Resolve 2018-11-01 [place] tion assistive Gait/Locom d 11-01 09:55:00 Star problems device otion 09:55: [id number] present 00 Respiratory smoker Respirator Active Cherrise y 9- [place] 11:20: [id number] 00 Elimination bowel Eliminatio Active 2018-03 Cherrise incontinenc n 0-08 [place] e 12:00: [id number] 00 Elimination diarrhea Eliminatio Active 2018-03 Cherrise n 0-08 [place] 12:00: [id number] 00 Respiratory knowledge/s Respirator Active 2018-03 [place] naranjo y 0-22 Carrier RN deficit: pt 17:25: 00 Medication knowledge/s Meds Active 2018-03 [place] kill 0-22 Carrier RN deficit: cg 17:25: 00 Medication knowledge/s Meds Unknown 2018-03 Toby kill 105 [place] deficit: cg 12:25: [id number] 00 Test/Treatm venipunctur Test/Injec Resolve 2018-032019-02-06 [place] ent e ordered t/Arcadio d 03-28 11:50:00 Carrier RN Endo/Moy anti-coagul Endo/Moy Active 2018-03 Toby ation 2 [place] therapy 11:30: [id number] 00 Allergies, Adverse Reactions, Alerts Allergy Name [...] 1 mg tablet 1 mg tablet 09-15 Nancy HAYS Neurontin Neurontin No Marder 2 Cap Unknown 300 mg 300 mg ,Nancy capsule capsule Vitamin Vitamin 2018- No Jander [...] Unknown 2 mg tablet 2 mg tablet Nancy HAYS fluticasone fluticasone No Jander Unknown Unknown propionate [...] Jander apply Unknown Severe 0.3 Severe 0.3 ,Nancy % eye gel % eye gel lidocaine [...] Unknown Unknown 15 mg 15 mg 09-15 Nancy HAYS tablet tablet mirtazapine mirtazapine 2018- No Jander [...] Unknown Unknown 500 mg 500 mg 09-15 MDNancy tablet tablet Iron Iron 2018- No Jander Unknown Unknown (ferrous (ferrous 09-15 ,Nancy sulfate) sulfate) 325 mg (65 325 mg (65 mg iron) mg iron) tablet tablet Systane Systane No Jander Unknown Unknown Balance 0.6 Balance 0.6 09-15 ,Nancy % eye drops % eye drops oxygen oxygen No Jander Unknown Unknown 09-15 Nancy HAYS CeleBREX CeleBREX 2018- No Jander Unknown Unknown [...] Unknown Unknown mg tablet mg tablet 09-27 MD,Nancy Mucinex DM Mucinex DM No Jander Unknown Unknown 30 mg-600 30 mg-600 09-27 MD,Nancy mg mg tablet,exte tablet,exte nded nded release 12 release 12 hr hr Vitamin C Vitamin C No Jander Unknown Unknown 500 mg 500 mg 09-15 MD,Nancy tablet tablet Iron Iron 2018- No Jander Unknown Unknown (ferrous (ferrous 09-15 MD,Nancy sulfate) sulfate) 325 mg (65 325 [...] No Jander Unknown Unknown (methyl (methyl 10-18 MD,Nancy salicylate- salicylate- menthol) 10 menthol) 10 %-3 % %-3 % topical topical patch patch mirtazapine mirtazapine No Jander Unknown Unknown 15 mg 15 mg 09-28 MD,Nancy tablet tablet atorvastati atorvastati 2018- Yes Jander Unknown Unknown n 80 mg n 80 mg 12-12 MD,Nancy tablet tablet atorvastati atorvastati 2018-03 Yes Jander Unknown Unknown n 40 mg n 40 mg 0-08 MD,Nancy tablet tablet omeprazole omeprazole Yes Jander Unknown Unknown 40 mg 40 mg 12-12 MD,Nancy capsule,del capsule,del ayed ayed release release cetirizine cetirizine No Jander Unknown Unknown 10 mg 10 mg 09-15 MD,Nancy tablet tablet mirtazapine mirtazapine No Jander Unknown Unknown 7.5 mg 7.5 mg 7- MD,Nancy tablet tablet Iron Iron Yes Jander Unknown Unknown (ferrous (ferrous 12-12 MD,Nancy sulfate) sulfate) 325 mg (65 325 mg (65 mg iron) mg iron) tablet tablet Vital Signs Vital Name Observation Time Observation Value Comments SYSTOLIC mm[Hg] 2019-03-06 18:09:24 110 mm[Hg] mm[Hg] Method: Sit SYSTOLIC mm[Hg] 2018-09-15 18:06:32 110 mm[Hg] mm[Hg] Method: Stand DIASTOLIC mm[Hg] 2019-03-06 18:09:24 52 mm[Hg] mm[Hg] Method: Sit DIASTOLIC mm[Hg] 2018-09-15 18:06:32 60 mm[Hg] mm[Hg] Method: Stand PULSE 2019-03-06 18:09:24 68 /min /min RESP RATE 2019-03-06 18:09:24 18 /min /min TEMP 2019-03-06 18:09:24 97.1 [degF] Procedures This patient has no known procedures. Results This patient has no known results.
--- OUTSIDE RECORDS SUMMARY | 2019-03-25 11:12 | XMS REPORT ---
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 [...] RN supplementa supplementa l oxygen l oxygen [facility] long term care social worker Diagnosis Active [place] (current) (current) Carrier RN use of use of aspirin aspirin long term care social worker [facility] Diagnosis Active [place] (current) (current) Carrier RN use of use of opiate opiate analgesic analgesic long term care social worker long term care social worker Diagnosis Active [place] (current) (current) Carrier RN use of use of inhaled inhaled steroids steroids [facility] Diagnosis Active [place] (current) (current) Carrier RN use of use of non-steroid non-steroid al al anti-inflam anti-inflam matories matories (NSAID) (NSAID) Personal Personal Diagnosis Active [place] history of history of Carrier RN pneumonia pneumonia (recurrent) (recurrent) Personal Personal Diagnosis Active [place] 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 Pain frequent Pain Mgmt Active Aura pain 09-15 [place] 10:19: [id number] 00 Pain knowledge/s Pain Mgmt Active Aura kill 09-15 [place] deficit: pt 10:19: [id number] 00 Respiratory dyspnea Respirator Active Aura present y 09-15 [place] 10:19: [id number] 00 Respiratory oxygen Respirator Active Aura treatments y 09-15 [place] in home 10:19: [id number] 00 Respiratory nebulizer Respirator Active Aura treatment y 09-15 [place] in home 10:19: [id number] 00 Sensory impaired Sensory Active Aura hearing 09-15 [place] 10:19: [id number] 00 Nutrition nutritional Nutrition Active Aura restriction 09-15 [place] s 10:19: [id number] 00 Elimination urinary Eliminatio Active Aura incontinenc n 09-15 [place] e 10:19: [id number] 00 Neuro confusion Neuro/Emot Active Aura present ion 09-15 [place] 10:19: [id number] 00 Neuro impaired Neuro/Emot Active Aura decision-ma ion 09-15 [place] rafa 10:19: [id number] 00 Neuro memory Neuro/Emot Active Aura deficit ion 09-15 [place] needing 10:19: [id number] supervision 00 Activity ADL Activity Active Aura assistance 09-15 [place] required 10:19: [id number] 00 Activity self-care Activity Active Aura deficit 09-15 [place] 10:19: [id number] 00 Safety structural Safety Active Aura barriers 09-15 [place] present 10:19: [id number] 00 Safety fall risk Safety Active Aura factor 09-15 [place] present 10:19: [id number] 00 Safety risk for Safety Active Aura hospitaliza 09-15 [place] tion 10:19: [id number] 00 Medication oral med Meds Active Aura assistance 09-15 [place] required 10:19: [id number] 00 Medication knowledge/s Meds Active Aura kill 09-15 [place] deficit: pt 10:19: [id number] 00 Musculoskel transfer Musculoske Active Aura etal assistance letal 09-15 [place] required 10:19: [id number] 00 Musculoskel requires Musculoske Active Aura etal human letal 09-15 [place] assist to 10:19: [id number] leave home 00 Respiratory lung sounds Respirator Active [place] deficit y 09-18 Carrier RN 16:20: 00 Integument knowledge/s Integument Active [place] kill 09-18 Carrier RN deficit: pt 16:20: 00 Endo/Moy anti-coagul Endo/Moy Resolve 2019-01-31 Reina zhao d 09-20 15:45:00 Addy therapy 14:00: [id number] 00 Medication potential Meds Active Reina clinically 09-20 Addy significant 14:00: [id number] medication 00 issue Elimination urinary Eliminatio Active Cherrise urgency n 7-10 [place] 13:15: [id number] 00 Elimination urinary Eliminatio Active Cherrise frequency n 7-10 [place] 13:15: [id number] 00 Elimination constipatio Eliminatio Active Cherrise n n 7-10 [place] 13:15: [id number] 00 Neuro depressive Neuro/Emot Active Cherrise feelings ion 7-17 [place] present 10:30: [id number] 00 Safety fire risk Safety Active Eliceo present 10-24 [place] 14:00: [id number] 00 Safety can be left Safety Active Eliceo alone for 10-24 [place] only short 14:00: [id number] periods 00 Balance/End balance/field coordinator PT/OT: Resolve 2018-11-01 Eliceo urance rdination Balance/En d 10-24 09:55:00 Star deficit durance 14:00: [id number] 00 OT: Self self-care OT: Resolve 2018-11-01 Eliceo Care deficit Self-Care d 10-24 09:55:00 Star 14:00: [id number] 00 OT: Self knowledge/s OT: Resolve 2018-11-01 Eliceo Care kill Self-Care d 10-24 09:55:00 Star deficit: pt 14:00: [id number] 00 OT: Self knowledge/s OT: Resolve 2018-11-01 Eliceo Care kill Self-Care d 10-24 09:55:00 Star deficit: cg 14:00: [id number] 00 Gait/Locomo gait PT/OT: Resolve 2018-11-01 Eliceo tion deficit Gait/Locom d 10-24 09:55:00 Sylviaz[place] problems otion 14:00: [id number] 00 Gait/Locomo gait PT/OT: Resolve 2018-11-01 Eliceo tion assistive Gait/Locom d 11-01 09:55:00 Star problems device otion 09:55: [id number] present 00 Respiratory smoker Respirator Active Cherrise y 9- [place] 11:20: [id number] 00 Elimination bowel Eliminatio Active 2018-03 Cherrise incontinenc n 0-08 [place] e 12:00: [id number] 00 Elimination diarrhea Eliminatio Active 2018-03 Cherrise n 0-08 [place] 12:00: [id number] 00 Respiratory knowledge/s Respirator Active 2018-03 [place] naranjo y 0-22 Carrier RN deficit: pt 17:25: 00 Medication knowledge/s Meds Active 2018-03 [place] kill 0-22 Carrier RN deficit: cg 17:25: 00 Medication knowledge/s Meds Unknown 2018-03 Toby kill 105 [place] deficit: cg 12:25: [id number] 00 Test/Treatm venipunctur Test/Injec Resolve 2018-032019-02-06 [place] ent e ordered t/Arcadio d 03-28 11:50:00 Carrier RN Endo/Moy anti-coagul Endo/Moy Active 2018-03 Toby ation 04-23 [place] therapy 11:30: [id number] 00 Safety fire risk: Safety Resolve 2018-032019-03-13 [place] smoking/O2 d 05-14 10:30:00 Carrier RN in use 10:30: 00 Allergies, [...] oral liquid oral liquid GenTeal GenTeal No Marder apply Unknown Severe 0.3 Severe 0.3 Nancy [...] oxygen oxygen No Jander Unknown Unknown 09-15 MD,Nancy CeleBREX CeleBREX 2018- No Jander Unknown Unknown [...] mg 09-28 MD,Nancy tablet tablet atorvastati atorvastati 2019- No Jander Unknown Unknown n 80 mg [...]
--- OUTSIDE RECORDS SUMMARY | 2019-03-25 11:12 | XMS REPORT ---
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 [...] RN supplementa supplementa l oxygen l oxygen [place] agent [place] agent Diagnosis Active [place] (current) (current) Carrier RN use of use of aspirin aspirin alf alf Diagnosis Active [place] (current) (current) Carrier RN use of use of inhaled inhaled steroids steroids [place] agent [place] agent Diagnosis Active [place] (current) (current) Carrier RN use of use of non-steroid non-steroid al al anti-inflam anti-inflam matories matories (NSAID) (NSAID) Personal Personal Diagnosis Active [place] history of history of Carrier RN pneumonia pneumonia (recurrent) (recurrent) 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 Pain frequent Pain Mgmt Active Aura pain 09-15 [place] 10:19: [id number] 00 Pain knowledge/s Pain Mgmt Active Aura kill 09-15 [place] deficit: pt 10:19: [id number] 00 Respiratory dyspnea Respirator Active Aura present y 09-15 [place] 10:19: [id number] 00 Respiratory oxygen Respirator Active Aura treatments y 09-15 [place] in home 10:19: [id number] 00 Respiratory nebulizer Respirator Active Aura treatment y 09-15 [place] in home 10:19: [id number] 00 Sensory impaired Sensory Active Aura hearing 09-15 [place] 10:19: [id number] 00 Nutrition nutritional Nutrition Active Aura restriction 09-15 [place] s 10:19: [id number] 00 Elimination urinary Eliminatio Active Aura incontinenc n 09-15 [place] e 10:19: [id number] 00 Neuro confusion Neuro/Emot Active Aura present ion 09-15 [place] 10:19: [id number] 00 Neuro impaired Neuro/Emot Active Aura decision-ma ion 09-15 [place] rafa 10:19: [id number] 00 Neuro memory Neuro/Emot Active Aura deficit ion 09-15 [place] needing 10:19: [id number] supervision 00 Activity ADL Activity Active Aura assistance 09-15 [place] required 10:19: [id number] 00 Activity self-care Activity Active Aura deficit 09-15 [place] 10:19: [id number] 00 Safety structural Safety Active Aura barriers 09-15 [place] present 10:19: [id number] 00 Safety fall risk Safety Active Aura factor 09-15 [place] present 10:19: [id number] 00 Safety risk for Safety Active Aura hospitaliza 09-15 [place] tion 10:19: [id number] 00 Medication oral med Meds Active Aura assistance 09-15 [place] required 10:19: [id number] 00 Medication knowledge/s Meds Active Aura kill 09-15 [place] deficit: pt 10:19: [id number] 00 Musculoskel transfer Musculoske Active Aura etal assistance letal 09-15 [place] required 10:19: [id number] 00 Musculoskel requires Musculoske Active Aura etal human letal 09-15 [place] assist to 10:19: [id number] leave home 00 Respiratory lung sounds Respirator Active [place] deficit y 09-18 Carrier RN 16:20: 00 Integument knowledge/s Integument Active [place] kill 09-18 Carrier RN deficit: pt 16:20: 00 Endo/Moy anti-coagul Endo/Moy Resolve 2019-01-31 Reina ation d 09-20 15:45:00 Addy therapy 14:00: [id number] 00 Medication potential Meds Active Reina clinically 09-20 Addy significant 14:00: [id number] medication 00 issue Elimination urinary Eliminatio Active Cherrise urgency n 7-10 [place] 13:15: [id number] 00 Elimination urinary Eliminatio Active Cherrise frequency n 7-10 [place] 13:15: [id number] 00 Elimination constipatio Eliminatio Active Cherrise n n 7-10 [place] 13:15: [id number] 00 Neuro depressive Neuro/Emot Active Cherrise feelings ion 7-17 [place] present 10:30: [id number] 00 Safety fire risk Safety Active Eliceo present 10-24 [place] 14:00: [id number] 00 Safety can be left Safety Active Elice[place] alone for 10-24 [place] only short 14:00: [id number] periods 00 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 PT/OT: Resolve 2018-11-01 [place] urance rdination Balance/En d 10-24 09:55:00 Star deficit durance 14:00: [id number] 00 OT: Self self-care OT: Resolve 2018-11-01 Eliceo Care deficit Self-Care d 10-24 09:55:00 [place] 14:00: [id number] 00 OT: Self knowledge/s OT: Resolve 2018-11-01 Eliceo Care kill Self-Care d 10-24 09:55:00 Star deficit: pt 14:00: [id number] 00 OT: Self knowledge/s OT: Resolve 2018-11-01 Eliceo Care kill Self-Care d 10-24 09:55:00 [place] deficit: cg 14:00: [id number] 00 Gait/Locomo gait PT/OT: Resolve 2018-11-01 Eliceo tion deficit Gait/Locom d 10-24 09:55:00 Star problems otion 14:00: [id number] 00 Gait/Locomo gait PT/OT: Resolve 2018-11-01 Eliceo tion assistive Gait/Locom d 11-01 09:55:00 Star problems device otion 09:55: [id number] present 00 Respiratory smoker Respirator Active 2019-0 Cherrise y 9-10 [place] 11:20: [id number] 00 Elimination bowel Eliminatio Active 2018-03 Cherrise incontinenc n 0-08 [place] e 12:00: [id number] 00 Elimination diarrhea Eliminatio Active 2018-03 Cherrise n 0-08 [place] 12:00: [id number] 00 Respiratory knowledge/s Respirator Active 2018-03 [place] kill y 0-22 Carrier RN deficit: pt 17:25: 00 Medication knowledge/s Meds Active 2018-03 [place] kill 0-22 Carrier RN deficit: cg 17:25: 00 Medication knowledge/s Meds Unknown 2018-03 [place] kill 03-25 [place] deficit: cg 12:25: [id number] 00 Test/Treatm venipunctur Test/Injec Resolve 2018-032019-02-06 [place] ent e ordered t/Arcadio d 03-28 11:50:00 Carrier RN Endo/Moy anti-coagul Endo/Moy Active 2018-03 Toby ation 2 [place] therapy 11:30: [id number] 00 Safety fire risk: Safety Active 2018-03 [...] Jander Unknown Unknown mg tablet mg tablet aNncy HAYS Levoxyl 25 Levoxyl No Jander Unknown [...]
--- OUTSIDE RECORDS SUMMARY | 2019-03-25 11:12 | XMS REPORT ---
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 [...] RN supplementa supplementa l oxygen l oxygen correction manager terminal Diagnosis Active [place] (current) (current) Carrier RN use of use of aspirin aspirin manager terminal correction Diagnosis Active [place] (current) (current) Carrier RN use of use of opiate opiate analgesic analgesic manager terminal manager terminal Diagnosis Active [place] (current) (current) Carrier RN use of use of inhaled inhaled steroids steroids correction correction Diagnosis Active [place] (current) (current) Carrier RN use of use of non-steroid non-steroid al al anti-inflam anti-inflam matories matories (NSAID) (NSAID) Personal Personal Diagnosis Active [place] history of history of Carrier RN pneumonia pneumonia (recurrent) (recurrent) Personal Personal Diagnosis Active [place] 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 Pain frequent Pain Mgmt Active Aura pain 09-15 [place] 10:19: [id number] Pain knowledge/s Pain Mgmt Active Aura kill 09-15 [place] deficit: pt 10:19: [id number] 00 Respiratory dyspnea Respirator Active Aura present y 09-15 [place] 10:19: [id number] 00 Respiratory oxygen Respirator Active Aura treatments y 09-15 [place] in home 10:19: [id number] 00 Respiratory nebulizer Respirator Active Aura treatment y 09-15 [place] in home 10:19: [id number] 00 Sensory impaired Sensory Active Aura hearing 09-15 [place] 10:19: [id number] 00 Nutrition nutritional Nutrition Active Aura restriction 09-15 [place] s 10:19: [id number] 00 Elimination urinary Eliminatio Active Aura incontinenc n 09-15 [place] e 10:19: [id number] 00 Neuro confusion Neuro/Emot Active Aura present ion 09-15 [place] 10:19: [id number] 00 Neuro impaired Neuro/Emot Active Aura decision-ma ion 09-15 [place] rafa 10:19: [id number] 00 Neuro memory Neuro/Emot Active Aura deficit ion 09-15 [place] needing 10:19: [id number] supervision 00 Activity ADL Activity Active Aura assistance 09-15 [place] required 10:19: [id number] 00 Activity self-care Activity Active Aura deficit 09-15 [place] 10:19: [id number] 00 Safety structural Safety Active Aura barriers 09-15 [place] present 10:19: [id number] 00 Safety fall risk Safety Active Aura factor 09-15 [place] present 10:19: [id number] 00 Safety risk for Safety Active Aura hospitaliza 09-15 [place] tion 10:19: [id number] 00 Medication oral med Meds Active Aura assistance 09-15 [place] required 10:19: [id number] 00 Medication knowledge/s Meds Active Aura kill 09-15 [place] deficit: pt 10:19: [id number] 00 Musculoskel transfer Musculoske Active Aura etal assistance letal 09-15 [place] required 10:19: [id number] 00 Musculoskel requires Musculoske Active Aura etal human letal 09-15 [place] assist to 10:19: [id number] leave home 00 Respiratory lung sounds Respirator Active [place] deficit y 09-18 Carrier RN 16:20: 00 Integument knowledge/s Integument Active [place] kill 09-18 Carrier RN deficit: pt 16:20: 00 Endo/Moy anti-coagul Endo/Moy Resolve 2019-01-31 Reina zhao d 09-20 15:45:00 Addy therapy 14:00: [id number] 00 Medication potential Meds Active Reina clinically 09-20 Addy significant 14:00: [id number] medication 00 issue Elimination urinary Eliminatio Active Cherrise urgency n 7-10 [place] 13:15: [id number] 00 Elimination urinary Eliminatio Active Cherrise frequency n 7-10 [place] 13:15: [id number] 00 Elimination constipatio Eliminatio Active Cherrise n n 7-10 [place] 13:15: [id number] 00 Neuro depressive Neuro/Emot Active Cherrise feelings ion 7-17 [place] present 10:30: [id number] 00 Safety fire risk Safety Active Eliceo present 10-24 [place] 14:00: [id number] 00 Safety can be left Safety Active Eliceo alone for 10-24 [place] only short 14:00: [id number] periods 00 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 PT/OT: Resolve 2018-11-01 [place] urance rdination Balance/En d 10-24 09:55:00 Star deficit durance 14:00: [id number] 00 OT: Self self-care OT: Resolve 2018-11-01 Eliceo Care deficit Self-Care d 10-24 09:55:00 Star 14:00: [id number] 00 OT: Self knowledge/s OT: Resolve 2018-11-01 Eliceo Care kill Self-Care d 10-24 09:55:00 Star deficit: pt 14:00: [id number] 00 OT: Self knowledge/s OT: Resolve 2018-11-01 Eliceo Care kill Self-Care d 10-24 09:55:00 Star deficit: cg 14:00: [id number] 00 Gait/Locomo gait PT/OT: Resolve 2018-11-01 Eliceo tion deficit Gait/Locom d 10-24 09:55:00 Sylv[place] problems otion 14:00: [id number] 00 Gait/Locomo gait PT/OT: Resolve 2018-11-01 Eliceo tion assistive Gait/Locom d 11-01 09:55:00 Star problems device otion 09:55: [id number] present 00 Respiratory smoker Respirator Active Cherrise y 9- [place] 11:20: [id number] 00 Elimination bowel Eliminatio Active 2018-03 Cherrise incontinenc n 0-08 [place] e 12:00: [id number] 00 Elimination diarrhea Eliminatio Active 2018-03 Cherrise n 0-08 [place] 12:00: [id number] 00 Respiratory knowledge/s Respirator Active 2018-03 [place] naranjo y 0-22 Carrier RN deficit: pt 17:25: 00 Medication knowledge/s Meds Active 2018-03 [place] kill 0-22 Carrier RN deficit: cg 17:25: 00 Medication knowledge/s Meds Unknown 2018-03 Toby kill 105 [place] deficit: cg 12:25: [id number] 00 Test/Treatm venipunctur Test/Injec Resolve 2018-032019-02-06 [place] ent e ordered t/Arcadio d 03-28 11:50:00 Carrier RN Endo/Moy anti-coagul Endo/Moy Active 2018-03 Toby ation 2 [place] therapy 11:30: [id number] 00 Allergies, Adverse Reactions, Alerts Allergy Name [...] Unknown Unknown B-12 500 B-12 500 09-15 MD,Nancy mcg tablet mcg tablet Robitussin Robitussin No [...] 09-28 MD,Nancy tablet tablet atorvastati atorvastati 2018- No Jander Unknown [...] mg 7- MD,Nancy tablet tablet Iron Iron No Jander [...]
--- OUTSIDE RECORDS SUMMARY | 2019-03-25 11:13 | XMS REPORT ---
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 Diagnosis Active [place] (current) (current) Carrier RN use of use of inhaled inhaled steroids steroids jail jail Diagnosis Active [place] (current) (current) Carrier RN use of use of non-steroid non-steroid al al anti-inflam anti-inflam matories matories (NSAID) (NSAID) Personal Personal Diagnosis Active [place] history of history of Carrier RN pneumonia pneumonia (recurrent) (recurrent) Personal Personal Diagnosis Active [place] 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 Pain frequent Pain Mgmt Active Aura pain 09-15 [place] 10:19: [id number] 00 Pain knowledge/s Pain Mgmt Active Aura kill 09-15 [place] deficit: pt 10:19: [id number] 00 Respiratory dyspnea Respirator Active Aura present y 09-15 [place] 10:19: [id number] 00 Respiratory oxygen Respirator Active Aura treatments y 09-15 [place] in home 10:19: [id number] 00 Respiratory nebulizer Respirator Active Aura treatment y 09-15 [place] in home 10:19: [id number] 00 Sensory impaired Sensory Active Aura hearing 09-15 [place] 10:19: [id number] 00 Nutrition nutritional Nutrition Active Aura restriction 09-15 [place] s 10:19: [id number] 00 Elimination urinary Eliminatio Active Aura incontinenc n 09-15 [place] e 10:19: [id number] 00 Neuro confusion Neuro/Emot Active Aura present ion 09-15 [place] 10:19: [id number] 00 Neuro impaired Neuro/Emot Active Aura decision-ma ion 09-15 [place] rafa 10:19: [id number] 00 Neuro memory Neuro/Emot Active Aura deficit ion 09-15 [place] needing 10:19: [id number] supervision 00 Activity ADL Activity Active Aura assistance 09-15 [place] required 10:19: [id number] 00 Activity self-care Activity Active Aura deficit 09-15 [place] 10:19: [id number] 00 Safety structural Safety Active Aura barriers 09-15 [place] present 10:19: [id number] 00 Safety fall risk Safety Active Aura factor 09-15 [place] present 10:19: [id number] 00 Safety risk for Safety Active Aura hospitaliza 09-15 [place] tion 10:19: [id number] 00 Medication oral med Meds Active Aura assistance 09-15 [place] required 10:19: [id number] 00 Medication knowledge/s Meds Active Aura kill 09-15 [place] deficit: pt 10:19: [id number] 00 Musculoskel transfer Musculoske Active Aura etal assistance letal 09-15 [place] required 10:19: [id number] 00 Musculoskel requires Musculoske Active Aura etal human letal 09-15 [place] assist to 10:19: [id number] leave home 00 Respiratory lung sounds Respirator Active [place] deficit y 09-18 Carrier RN 16:20: 00 Integument knowledge/s Integument Active [place] kill 09-18 Carrier RN deficit: pt 16:20: 00 Endo/Moy anti-coagul Endo/Moy Resolve 2019-01-31 Reina zhao d 09-20 15:45:00 Addy therapy 14:00: [id number] 00 Medication potential Meds Active Reina clinically 09-20 Addy significant 14:00: [id number] medication 00 issue Elimination urinary Eliminatio Active Cherrise urgency n 7-10 [place] 13:15: [id number] 00 Elimination urinary Eliminatio Active Cherrise frequency n 7-10 [place] 13:15: [id number] 00 Elimination constipatio Eliminatio Active Cherrise n n 7-10 [place] 13:15: [id number] 00 Neuro depressive Neuro/Emot Active Cherrise feelings ion 7-17 [place] present 10:30: [id number] 00 Safety fire risk Safety Active Eliceo present 10-24 [place] 14:00: [id number] 00 Safety can be left Safety Active Eliceo alone for 10-24 [place] only short 14:00: [id number] periods 00 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 PT/OT: Resolve 2018-11-01 [place] urance rdination Balance/En d 10-24 09:55:00 Star deficit durance 14:00: [id number] 00 OT: Self self-care OT: Resolve 2018-11-01 Eliceo Care deficit Self-Care d 10-24 09:55:00 Star 14:00: [id number] 00 OT: Self knowledge/s OT: Resolve 2018-11-01 [place] Care kill Self-Care d 10-24 09:55:00 Star deficit: pt 14:00: [id number] 00 OT: Self knowledge/s OT: Resolve 2018-11-01 [place] Care kill Self-Care d 10-24 09:55:00 Star deficit: cg 14:00: [id number] 00 Gait/Locomo gait PT/OT: Resolve 2018-11-01 El[place]o tion deficit Gait/Locom d 10-24 09:55:00 [place] problems otion 14:00: [id number] 00 Gait/Locomo gait PT/OT: Resolve 2018-11-01 [place]o tion assistive Gait/Locom d 11-01 09:55:00 Star problems device otion 09:55: [id number] present 00 Respiratory smoker Respirator Active Cherrise y 9- [place] 11:20: [id number] 00 Elimination bowel Eliminatio Active 2018-03 Cherrise incontinenc n 0-08 [place] e 12:00: [id number] 00 Elimination diarrhea Eliminatio Active 2018-03 Cherrise n 0-08 [place] 12:00: [id number] 00 Respiratory knowledge/s Respirator Active 2018-03 [place] naranjo y 0-22 Carrier RN deficit: pt 17:25: 00 Medication knowledge/s Meds Active 2018-03 [place] kill 0-22 Carrier RN deficit: cg 17:25: 00 Medication knowledge/s Meds Unknown 2018-03 Toby kill 105 [place] deficit: cg 12:25: [id number] 00 Test/Treatm venipunctur Test/Injec Resolve 2018-032019-02-06 [place] ent e ordered t/Arcadio d 03-28 11:50:00 Carrier RN Endo/Moy anti-coagul Endo/Moy Active 2018-03 Toby ation 2 [place] therapy 11:30: [id number] 00 Allergies, Adverse Reactions, Alerts Allergy Name [...] Unknown 5-16 prednisone Unknown Active Unknown fluid Cehri White retention 5-16 Medications Ordered Filled Start [...]
[2019-03-25] MEDS ORDERED: Acetaminophen TAB* 325 MG PO ONE (11:44)
[2019-03-25] MEDS ORDERED: Albuterol/Ipratropium NEB.SOL* Albuterol 2.5 MG/Ipratropium 0.5 MG 3 ML ONE (12:00)
[2019-03-25 13:29] LABS: Urine Appearance Clear; Urine Bilirubin Negative (Negative); Urine Blood Negative (Negative); Urine Color Yellow; Urine Glucose Negative (Negative); Urine Ketones Negative (Negative); Urine Nitrite Negative (Negative); Urine Protein 1+(30 mg/dL) (Negative); Urine Specific Gravity 1.016 (1.010-1.030); Urine Urobilinogen Negative (Negative)
[2019-03-25 13:34] LABS: Urine Bacteria Absent (Absent); Urine Red Blood Cell Absent (Absent); Urine White Blood Cell Absent (Absent)
[2019-03-25] MEDS ORDERED: Levofloxacin TAB* 250 MG PO ONE (13:39)
[2019-03-25 14:41] VITALS: BP 138/61
== END 2019-03-25 14:42 | disposition home or self-care (01) ==
LOC: ED 10:22
DX: J44.1 Chronic obstructive pulmonary disease with (acute) exacerbation (principal); R10.30 Lower abdominal pain, unspecified; E06.3 Autoimmune thyroiditis; D64.9 Anemia, unspecified; I25.10 Atherosclerotic heart disease of native coronary artery without angina pectoris; E78.00 Pure hypercholesterolemia, unspecified; I10 Essential (primary) hypertension; K21.9 Gastro-esophageal reflux disease without esophagitis; F41.9 Anxiety disorder, unspecified; F17.210 Nicotine dependence, cigarettes, uncomplicated; Z85.3 Personal history of malignant neoplasm of breast; Z90.12 Acquired absence of left breast and nipple; Z90.81 Acquired absence of spleen; Z90.5 Acquired absence of kidney; Z90.89 Acquired absence of other organs; Z88.8 Allergy status to other drugs, medicaments and biological substances; Z88.2 Allergy status to sulfonamides; Z88.4 Allergy status to anesthetic agent; Z88.1 Allergy status to other antibiotic agents; Z91.041 Radiographic dye allergy status; Z91.040 Latex allergy status
CPT/HCPCS: 36415; 71046; 80053; 81003; 81015; 83880; 84484; 85025; 93005; 99284; A9270-GY; J7512

== ENCOUNTER 2019-04-24 10:51 | Emergency (ER) | payer MEDICARE, MEDICAID ==
--- OUTSIDE RECORDS SUMMARY | 2019-04-24 11:07 | XMS REPORT ---
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 Diagnosis Active [place] (current) (current) Carrier RN use of use of non-steroid non-steroid al al anti-inflam anti-inflam matories matories (NSAID) (NSAID) Personal Personal Diagnosis Active [place] history of history of Carrier RN pneumonia pneumonia (recurrent) (recurrent) 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 Pain frequent Pain Mgmt Active Aura pain 09-15 [place] 10:19: [id number] 00 Pain knowledge/s Pain Mgmt Active Aura kill 09-15 [place] deficit: pt 10:19: [id number] 00 Respiratory dyspnea Respirator Active Aura present y 09-15 [place] 10:19: [id number] 00 Respiratory oxygen Respirator Active Aura treatments y 09-15 [place] in home 10:19: [id number] 00 Respiratory nebulizer Respirator Active Aura treatment y 09-15 [place] in home 10:19: [id number] 00 Sensory impaired Sensory Active Aura hearing 09-15 [place] 10:19: [id number] 00 Nutrition nutritional Nutrition Active Aura restriction 09-15 [place] s 10:19: [id number] 00 Elimination urinary Eliminatio Active Aura incontinenc n 09-15 [place] e 10:19: [id number] 00 Neuro confusion Neuro/Emot Active Aura present ion 09-15 [place] 10:19: [id number] 00 Neuro impaired Neuro/Emot Active Aura decision-ma ion 09-15 [place] rafa 10:19: [id number] 00 Neuro memory Neuro/Emot Active Aura deficit ion 09-15 [place] needing 10:19: [id number] supervision 00 Activity ADL Activity Active Aura assistance 09-15 [place] required 10:19: [id number] 00 Activity self-care Activity Active Aura deficit 09-15 [place] 10:19: [id number] 00 Safety structural Safety Active Aura barriers 09-15 [place] present 10:19: [id number] 00 Safety fall risk Safety Active Aura factor 09-15 [place] present 10:19: [id number] 00 Safety risk for Safety Active Aura hospitaliza 09-15 [place] tion 10:19: [id number] 00 Medication oral med Meds Active Aura assistance 09-15 [place] required 10:19: [id number] 00 Medication knowledge/s Meds Active Aura kill 09-15 [place] deficit: pt 10:19: [id number] 00 Musculoskel transfer Musculoske Active Aura etal assistance letal 09-15 [place] required 10:19: [id number] 00 Musculoskel requires Musculoske Active Aura etal human letal 09-15 [place] assist to 10:19: [id number] leave home 00 Respiratory lung sounds Respirator Active [place] deficit y 09-18 Carrier RN 16:20: 00 Integument knowledge/s Integument Active [place] kill 09-18 Carrier RN deficit: pt 16:20: 00 Endo/Moy anti-coagul Endo/Moy Resolve 2019-01-31 Reina ation d 09-20 15:45:00 Addy therapy 14:00: [id number] 00 Medication potential Meds Active Reina clinically 09-20 Addy significant 14:00: [id number] medication 00 issue Elimination urinary Eliminatio Active Cherrise urgency n 7-10 [place] 13:15: [id number] 00 Elimination urinary Eliminatio Active Cherrise frequency n 7-10 [place] 13:15: [id number] 00 Elimination constipatio Eliminatio Active Cherrise n n 7-10 [place] 13:15: [id number] 00 Neuro depressive Neuro/Emot Active Cherrise feelings ion 7-17 [place] present 10:30: [id number] 00 Safety fire risk Safety Active Eliceo present 10-24 [place] 14:00: [id number] 00 Safety can be left Safety Active Eliceo alone for 10-24 [place] only short 14:00: [id number] periods 00 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 PT/OT: Resolve 2018-11-01 [place]iceo urance rdination Balance/En d 10-24 09:55:00 Star deficit durance 14:00: [id number] 00 OT: Self self-care OT: Resolve 2018-11-01 Eliceo Care deficit Self-Care d 10-24 09:55:00 Star 14:00: [id number] 00 OT: Self knowledge/s OT: Resolve 2018-11-01 Eliceo Care kill Self-Care d 10-24 09:55:00 Star deficit: pt 14:00: [id number] 00 OT: Self knowledge/s OT: Resolve 2018-11-01 Eliceo Care kill Self-Care d 10-24 09:55:00 Star deficit: cg 14:00: [id number] 00 Gait/Locomo gait PT/OT: Resolve 2018-11-01 Eliceo tion deficit Gait/Locom d 10-24 09:55:00 Star problems otion 14:00: [id number] 00 Gait/Locomo gait PT/OT: Resolve 2018-11-01 Eliceo tion assistive Gait/Locom d 11-01 09:55:00 Star problems device otion 09:55: [id number] present 00 Respiratory smoker Respirator Active 2019-0 Cherrise y 9-10 [place] 11:20: [id number] 00 Elimination bowel Eliminatio Active 2018-03 Cherrise incontinenc n 0-08 [place] e 12:00: [id number] 00 Elimination diarrhea Eliminatio Active 2018-03 Cherrise n 0-08 [place] 12:00: [id number] 00 Respiratory knowledge/s Respirator Active 2018-03 [place] kill y 0-22 Carrier RN deficit: pt 17:25: 00 Medication knowledge/s Meds Active 2018-03 [place] kill 0-22 Carrier RN deficit: cg 17:25: 00 Medication knowledge/s Meds Unknown 2018-03 [place] kill 03-25 [place] deficit: cg 12:25: [id number] 00 Test/Treatm venipunctur Test/Injec Resolve 2018-032019-02-06 [place] ent e ordered t/Arcadio d 03-28 11:50:00 Carrier RN Endo/Moy anti-coagul Endo/Moy Active 2018-03 Toby ation 2 [place] therapy 11:30: [id number] 00 Safety fire risk: Safety Active 2018-03 [...] 12-12- MD,Nancy tablet tablet atorvastati atorvastati 2018-03 No Jander Unknown Unknown n 40 mg n 40 mg 008 MD,Nancy tablet tablet omeprazole omeprazole No Jander [...] Observation Time Observation Value Comments SYSTOLIC mm[Hg] 2019-04-03 18:09:52 100 mm[Hg] mm[Hg] Method: Sit SYSTOLIC mm[Hg] 2018-09-15 18:06:32 110 mm[Hg] mm[Hg] Method: Stand DIASTOLIC mm[Hg] 2019-04-03 18:09:52 54 mm[Hg] mm[Hg] Method: Sit DIASTOLIC mm[Hg] 2018-09-15 18:06:32 60 mm[Hg] mm[Hg] Method: Stand PULSE 2019-04-03 18:09:52 67 /min /min RESP RATE 2019-04-03 18:09:52 18 /min /min TEMP 2019-04-03 18:09:52 98.6 [degF] Procedures This patient has no known procedures. Results This patient has no known results.
--- OUTSIDE RECORDS SUMMARY | 2019-04-24 11:07 | XMS REPORT ---
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 Diagnosis Active [place] (current) (current) Carrier RN use of use of non-steroid non-steroid al al anti-inflam anti-inflam matories matories (NSAID) (NSAID) Personal Personal Diagnosis Active [place] history of history of Carrier RN pneumonia pneumonia (recurrent) (recurrent) 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 Pain frequent Pain Mgmt Active Aura pain 09-15 [place] 10:19: [id number] 00 Pain knowledge/s Pain Mgmt Active Aura kill 09-15 [place] deficit: pt 10:19: [id number] 00 Respiratory dyspnea Respirator Active Aura present y 09-15 [place] 10:19: [id number] 00 Respiratory oxygen Respirator Active Aura treatments y 09-15 [place] in home 10:19: [id number] 00 Respiratory nebulizer Respirator Active Aura treatment y 09-15 [place] in home 10:19: [id number] 00 Sensory impaired Sensory Active Aura hearing 09-15 [place] 10:19: [id number] 00 Nutrition nutritional Nutrition Active Aura restriction 09-15 [place] s 10:19: [id number] 00 Elimination urinary Eliminatio Active Aura incontinenc n 09-15 [place] e 10:19: [id number] 00 Neuro confusion Neuro/Emot Active Aura present ion 09-15 [place] 10:19: [id number] 00 Neuro impaired Neuro/Emot Active Aura decision-ma ion 09-15 [place] rafa 10:19: [id number] 00 Neuro memory Neuro/Emot Active Aura deficit ion 09-15 [place] needing 10:19: [id number] supervision 00 Activity ADL Activity Active Aura assistance 09-15 [place] required 10:19: [id number] 00 Activity self-care Activity Active Aura deficit 09-15 [place] 10:19: [id number] 00 Safety structural Safety Active Aura barriers 09-15 [place] present 10:19: [id number] 00 Safety fall risk Safety Active Aura factor 09-15 [place] present 10:19: [id number] 00 Safety risk for Safety Active Aura hospitaliza 09-15 [place] tion 10:19: [id number] 00 Medication oral med Meds Active Aura assistance 09-15 [place] required 10:19: [id number] 00 Medication knowledge/s Meds Active Aura kill 09-15 [place] deficit: pt 10:19: [id number] 00 Musculoskel transfer Musculoske Active Aura etal assistance letal 09-15 [place] required 10:19: [id number] 00 Musculoskel requires Musculoske Active Aura etal human letal 09-15 [place] assist to 10:19: [id number] leave home 00 Respiratory lung sounds Respirator Active [place] deficit y 09-18 Carrier RN 16:20: 00 Integument knowledge/s Integument Active [place] kill 09-18 Carrier RN deficit: pt 16:20: 00 Endo/Moy anti-coagul Endo/Moy Resolve 2019-01-31 Reina ation d 09-20 15:45:00 Addy therapy 14:00: [id number] 00 Medication potential Meds Active Reina clinically 09-20 Addy significant 14:00: [id number] medication 00 issue Elimination urinary Eliminatio Active Cherrise urgency n 7-10 [place] 13:15: [id number] 00 Elimination urinary Eliminatio Active Cherrise frequency n 7-10 [place] 13:15: [id number] 00 Elimination constipatio Eliminatio Active Cherrise n n 7-10 [place] 13:15: [id number] 00 Neuro depressive Neuro/Emot Active Cherrise feelings ion 7-17 [place] present 10:30: [id number] 00 Safety fire risk Safety Active Eliceo present 10-24 [place] 14:00: [id number] 00 Safety can be left Safety Active Eliceo alone for 10-24 [place] only short 14:00: [id number] periods 00 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 PT/OT: Resolve 2018-11-01 [place] urance rdination Balance/En d 10-24 09:55:00 Star deficit durance 14:00: [id number] 00 OT: Self self-care OT: Resolve 2018-11-01 Eliceo Care deficit Self-Care d 10-24 09:55:00 Star 14:00: [id number] 00 OT: Self knowledge/s OT: Resolve 2018-11-01 [place]ice[place] Care kill Self-Care d 10-24 09:55:00 Star deficit: pt 14:00: [id number] 00 OT: Self knowledge/s OT: Resolve 2018-11-01 [place] Care kill Self-Care d 10-24 09:55:00 Star deficit: cg 14:00: [id number] 00 Gait/Locomo gait PT/OT: Resolve 2018-11-01 Eliceo tion deficit Gait/Locom d 10-24 09:55:00 Star problems otion 14:00: [id number] 00 Gait/Locomo gait PT/OT: Resolve 2018-11-01 [place] tion assistive Gait/Locom d 11-01 09:55:00 Star problems device otion 09:55: [id number] present 00 Respiratory smoker Respirator Active 2019-0 Cherrise y 9-10 [place] 11:20: [id number] 00 Elimination bowel Eliminatio Active 2018-03 Cherrise incontinenc n 0-08 [place] e 12:00: [id number] 00 Elimination diarrhea Eliminatio Active 2018-03 Cherrise n 0-08 [place] 12:00: [id number] 00 Respiratory knowledge/s Respirator Active 2018-03 [place] kill y 0-22 Carrier RN deficit: pt 17:25: 00 Medication knowledge/s Meds Active 2018-03 [place] kill 0-22 Carrier RN deficit: cg 17:25: 00 Medication knowledge/s Meds Unknown 2018-03 [place] kill 03-25 [place] deficit: cg 12:25: [id number] 00 Test/Treatm venipunctur Test/Injec Resolve 2018-032019-02-06 [place] ent e ordered t/Arcadio d 03-28 11:50:00 Carrier RN Endo/Moy anti-coagul Endo/Moy Active 2018-03 Toby ation 2 [place] therapy 11:30: [id number] 00 Safety fire risk: Safety Active 2018-03 [...] 12-12 MD,Nancy tablet tablet atorvastati atorvastati 2018-03 No [...] Observation Time Observation Value Comments SYSTOLIC mm[Hg] 2019-04-17 18:10:06 124 mm[Hg] mm[Hg] Method: Sit SYSTOLIC mm[Hg] 2018-09-15 18:06:32 110 mm[Hg] mm[Hg] Method: Stand DIASTOLIC mm[Hg] 2019-04-17 18:10:06 50 mm[Hg] mm[Hg] Method: Sit DIASTOLIC mm[Hg] 2018-09-15 18:06:32 60 mm[Hg] mm[Hg] Method: Stand PULSE 2019-04-17 18:10:06 70 /min /min RESP RATE 2019-04-17 18:10:06 16 /min /min TEMP 2019-04-17 18:10:06 98.3 [degF] Procedures This patient has no known procedures. Results This patient has no known results.
--- OUTSIDE RECORDS SUMMARY | 2019-04-24 11:07 | XMS REPORT | Continuity of Care Document ---
:1935 External Reference #:[id number] Author Name Jennifer Brown M.D. 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 Onset: 06/13/2014 Chronic obstructive lung disease Carmella Vaughn MD Onset: 06/18/2014 Pulmonary emphysema Carmella Vaughn MD Onset: 06/18/2014 Tobacco user Carmella Vaughn MD Onset: 06/18/2014 Pre-surgery evaluation Carmella Vaughn MD Onset: 06/18/2014 Disorder of lung Carmella Vaughn MD Onset: 06/18/2014 Hyperlipidemia Bernard Lees M.D., 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 Onset: 08/20/2016 the pelvic region and thigh Trochanteric bursitis Jennifer Brown M.D. Onset: 08/20/2016 Localized, primary osteoarthritis Jennifer Brown M.D. Onset: 09/24/2016 Dyspnea Bernard Lees M.D., [facility] Onset: 09/29/2016 Aortic valve disorder Bernard Lees M.D., [facility], [facility] Onset: 08/25/2017 Social History Type Date Description Comments Sex Unknown Tobacco Use Start: Unknown current cigarette smoker ETOH Use Denies alcohol use Recreational Drug Use Denies Drug Use Tobacco Use Start: Unknown Patient is a current Occasionally will smoker, smokes some share 1-2 puffs with days other people Smoking Status Reviewed: 04/20/19 Patient is a current Occasionally will smoker, [...] Date Provider Lipitor 1 tab by mouth 90tabs Qutasimone S. 12/11/2018 40mg Tablets every day at Obi Jacobsen bedtime Incruse Ellipta inhale one puff by Unknown 09/12/2018 mouth every day 62.5mcg/Inh Aerosol Ipratropium 1 vial in nebulizer 180ml Carmella Vaughn, 01/26/2018 [place]/Albuterol every 6 hours prn MD Sulfate 0.5-2.5(3)mg/3ML Solution Nebulizer 1 unit nebulization 1units J44.9 Carmella Vaughn, 12/08/2017 Device with albuterol MD every 6 hours and as needed Gabapentin 2 caps po 2 times 90caps Unknown 03/22/2017 300mg daily, morning and Capsules bed. 1 cap in the noon and evening Flutter use as instructed 1units J44.9 Carmella Vaughn, 09/16/2014 Device twice a day Imodium [...] one by mouth once Unknown Potency monthly 58553Wena Tablets Nystatin 5cc swish and spit Unknown 502058Xgmg/ML 4 times a day Suspension Metamucil take [...] every Unknown 15mg night at bedtime Tablets Medications Administered in Office Medication SIG Qnty Indications Ordering Provider Date Synvisc Or Synvisc-One Jennifer Brown M.D. 01/17/2019 Injection 1 MG Injection Synvisc Or Synvisc-One Jennifer Brown M.D. 01/17/2019 Injection 1 MG Injection Synvisc Or Synvisc-One [...] Brown M.D. 08/20/2016 Injection Depomedrol 80MG Enid Savage M.D. 11/29/2013 Injection Depomedrol 80MG Enid Savage M.D. 03/29/2013 Injection Immunizations CPT Code Status Date Vaccine Lot # [id number] Given 06/18/2014 Fluvirin Im 3Yrs And Older Vital Signs Date Vital Result Comment 04/20/2019 1:46pm Height 61 inches 5'1" Weight 114.00 lb Heart Rate 60 /min BP Systolic 126 mmHg BP Diastolic 50 mmHg Body Temperature 97.5 F Pain Level 7 BMI (Body Mass Index) 21.5 kg/m2 01/17/2019 1:59pm Height 61 inches 5'1" Weight 114.00 lb Heart Rate 60 /min BP Systolic 138 mmHg BP Diastolic 60 mmHg Respiratory Rate 16 /min Body Temperature 99.3 F Pain Level 7 BMI (Body Mass Index) 21.5 kg/m2 Results Test Acquired Date Facility Test Result H/L Range Note Comp Metabolic 12/08/2018 [facility] Sodium 138 mmol/L Normal 135-145 Panel [address] [place] [address] [phone] Potassium 4.5 mmol/L Normal 3.5-5.0 Chloride 99 [...] Egfr 65.4 >60 1 Lipid Profile 12/08/2018 [facility] Triglycerides 167 mg/dL 2 (Trig/Chol/HDL) [address] [place] [address] [phone] Cholesterol 143 mg/dL 3 HDL Cholesterol 87.4 mg/dL 4 LDL Cholesterol 22 mg/dL 5 Laboratory test 12/08/2018 [facility] Creatine 41 U/L Normal 10-[address] Kinase(CK) [place] [address] [phone] CBC Auto Diff 12/08/2018 [facility] White Blood 12.2 High 3.5- 10.[address] Count 10^3/[place] [address] [phone] Red Blood Count 3.99 10^6/uL Normal 3.70-4.87 [...] Cells % 0.1 Lipid Panel - 11/23/2018 [facility] Creatine Kinase(CK) <pending > [address] [address] [phone] 1 Because ethnic data is not always [...] High: >189 Procedures Date Code Description Status 04/20/2019 Inject/Drain Joint/Bursa Major W/O US Completed 01/17/2019 Inject/Drain Joint/Bursa Major W/O US Completed 01/08/2019 Inject/Drain Joint/Bursa Major W/O US Completed 01/01/2019 Inject/Drain Joint/Bursa Major W/O US Completed 12/12/2018 87856 ECHO Transthoracic, Real-Time 2D With Doppler And Color Completed Flow 12/12/2018 20399 ECHO Transthoracic, Real-Time 2D With Doppler And Color Completed Flow 12/01/2018 Inject/Drain Joint/Bursa Major W/O US Completed Medical Devices Description No Information Available Encounters Type Date Location Provider Dx Diagnosis Office Visit 04/20/2019 [facility] Jennifer Brown, M17.0 Bilateral primary 2:00p at [place] M.D. 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 knee 04/20/2019 M70.61 Trochanteric bursitis, right hip Jennifer Brown M.D. 04/20/2019 M25.551 Pain in right hip Jennifer Brown M.D. 01/17/2019 M25.562 Pain in left knee Jennifer Brown M.D. 01/17/2019 M25.561 Pain in right knee Jennifer Brown M.D. 01/17/2019 M25.462 Effusion, left knee Jennifer Brown M.D. 01/17/2019 M25.461 Effusion, right knee Jennifer Kevin, M.D. 01/17/2019 M17.0 Bilateral primary osteoarthritis of Jennifer Kevin, M.D. knee 01/08/2019 M25.562 Pain in left knee Jenniferhenry Brown, M.D. 01/08/2019 M25.561 Pain in right knee Jenniferhenry Brown, M.D. 01/08/2019 M25.462 Effusion, left knee Jenniferhenry Brown, M.D. 01/08/2019 M25.461 Effusion, right knee Jennifer Kevin, M.D. 01/08/2019 M17.0 Bilateral primary osteoarthritis of Jenniferchan Brown, Christelle.D. knee 01/01/2019 M25.562 Pain in left knee Jenniferhenry Brown, M.D. 01/01/2019 M25.561 Pain in right knee Jenniferhenry Brown, M.D. 01/01/2019 M25.462 Effusion, left knee Jenniferhenry Brown, M.D. 01/01/2019 M25.461 Effusion, right knee Jennifer Kevin, M.D. 01/01/2019 M17.0 Bilateral primary osteoarthritis of Jenniferchan Brown, Obi knee 12/28/2018 I35.0 Nonrheumatic aortic (valve) stenosis Selene Esteban, AFSANEH 12/28/2018 I25.10 Atherosclerotic heart disease of Selene ThAFSANEH lomax [place] coronary artery without angina pectoris 12/28/2018 E78.5 Hyperlipidemia, unspecified Selene Esteban, AFSANEH 12/28/2018 N18.9 Chronic kidney disease, unspecified Selene Esteban, AFSANEH 12/12/2018 I35.0 Nonrheumatic aortic (valve) stenosis Katherine Jacobsen M.D. 12/12/2018 I35.0 Nonrheumatic aortic (valve) stenosis [place] [facility] 12/12/2018 I25.10 Atherosclerotic heart disease of [place] [facility] [place] coronary artery without angina pectoris 12/12/2018 I34.0 Nonrheumatic mitral (valve) [facility] Schedule insufficiency 12/01/2018 M25.562 Pain in left knee Jenniferhenry Brown M.D. 12/01/2018 M25.561 Pain in right knee Jennifer Brown M.D. 12/01/2018 M25.462 Effusion, left knee Jennifer Brown M.D. 12/01/2018 M25.461 Effusion, right knee Jennifer Brown M.D. 12/01/2018 M17.0 Bilateral primary osteoarthritis of Jennifer Brown M.D. knee 12/01/2018 M70.62 Trochanteric bursitis, left hip eJnnifer Brown M.D. 12/01/2018 M70.61 Trochanteric bursitis, right hip Jennifer Brown M.D. 12/01/2018 M25.552 Pain in left hip Jennifer Brown M.D. 12/01/2018 M25.551 Pain in right hip Jennifer Brown M.D. 12/01/2018 M16.0 Bilateral primary osteoarthritis of Jennifer Brown M.D. hip 11/23/2018 I35.0 Nonrheumatic aortic (valve) stenosis Selene Esteban NP 11/23/2018 I25.10 Atherosclerotic heart disease of Selene Esteban NP [place] coronary artery without angina pectoris 11/23/2018 D64.9 Anemia, unspecified Selene Esteban NP 11/23/2018 I34.0 Nonrheumatic mitral (valve) Selene Esteban NP insufficiency 10/20/2018 R51 Headache Evangelista Jhaveri NP 10/20/2018 G25.0 Essential tremor Evangelista Jhaveri NP 10/20/2018 M54.2 Cervicalgia Evangelista Jhaveri NP Plan of Treatment Future Appointment(s):05/04/2019 1:15 pm - JUDY Liu at [facility] at [id number]/26/2019 2:00 pm - Evangelista Jhaveri NP at [facility] Isubnl9904/20/2019 - Jennifer Brown M.D.M17.0 Bilateral primary osteoarthritis of kneeNew Therapy:Physical TherapyFollow up:Follow up: 2 weeks for B/L knee [id number] Trochanteric bursitis, right hipM25.551 Pain in right hip Functional Status Description No Information Available Mental Status Description No Information Available Referrals Refer to Reason for Referral Status Appt Date [facility] [place] [address] [id number] [phone] [facility] [place] PT for cervicalgia. [place] [address] [place] [id number] [phone]
--- OUTSIDE RECORDS SUMMARY | 2019-04-24 11:07 | XMS REPORT ---
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 Diagnosis Active [place] (current) (current) Carrier RN use of use of non-steroid non-steroid al al anti-inflam anti-inflam matories matories (NSAID) (NSAID) Personal Personal Diagnosis Active [place] history of history of Carrier RN pneumonia pneumonia (recurrent) (recurrent) 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 Pain frequent Pain Mgmt Active Aura pain 09-15 [place] 10:19: [id number] 00 Pain knowledge/s Pain Mgmt Active Aura kill 09-15 [place] deficit: pt 10:19: [id number] 00 Respiratory dyspnea Respirator Active Aura present y 09-15 [place] 10:19: [id number] 00 Respiratory oxygen Respirator Active Aura treatments y 09-15 [place] in home 10:19: [id number] 00 Respiratory nebulizer Respirator Active Aura treatment y 09-15 [place] in home 10:19: [id number] 00 Sensory impaired Sensory Active Aura hearing 09-15 [place] 10:19: [id number] 00 Nutrition nutritional Nutrition Active Aura restriction 09-15 [place] s 10:19: [id number] 00 Elimination urinary Eliminatio Active Aura incontinenc n 09-15 [place] e 10:19: [id number] 00 Neuro confusion Neuro/Emot Active Aura present ion 09-15 [place] 10:19: [id number] 00 Neuro impaired Neuro/Emot Active Aura decision-ma ion 09-15 [place] rafa 10:19: [id number] 00 Neuro memory Neuro/Emot Active Aura deficit ion 09-15 [place] needing 10:19: [id number] supervision 00 Activity ADL Activity Active Aura assistance 09-15 [place] required 10:19: [id number] 00 Activity self-care Activity Active Aura deficit 09-15 [place] 10:19: [id number] 00 Safety structural Safety Active Aura barriers 09-15 [place] present 10:19: [id number] 00 Safety fall risk Safety Active Aura factor 09-15 [place] present 10:19: [id number] 00 Safety risk for Safety Active Aura hospitaliza 09-15 [place] tion 10:19: [id number] 00 Medication oral med Meds Active Aura assistance 09-15 [place] required 10:19: [id number] 00 Medication knowledge/s Meds Active Aura kill 09-15 [place] deficit: pt 10:19: [id number] 00 Musculoskel transfer Musculoske Active Aura etal assistance letal 09-15 [place] required 10:19: [id number] 00 Musculoskel requires Musculoske Active Aura etal human letal 09-15 [place] assist to 10:19: [id number] leave home 00 Respiratory lung sounds Respirator Active [place] deficit y 09-18 Carrier RN 16:20: 00 Integument knowledge/s Integument Active [place] kill 09-18 Carrier RN deficit: pt 16:20: 00 Endo/Moy anti-coagul Endo/Moy Resolve 2019-01-31 Reina ation d 09-20 15:45:00 Addy therapy 14:00: [id number] 00 Medication potential Meds Active Reina clinically 09-20 Addy significant 14:00: [id number] medication 00 issue Elimination urinary Eliminatio Active Cherrise urgency n 7-10 Loman 13:15: [id number] 00 Elimination urinary Eliminatio Active Cherrise frequency n 7-10 Loman 13:15: [id number] 00 Elimination constipatio Eliminatio Active Cherrise n n 7-10 Loman 13:15: [id number] 00 Neuro depressive Neuro/Emot Active Cherrise feelings ion 7-17 Loman present 10:30: [id number] 00 Safety fire risk Safety Active Eliceo present 10-24 Kobziewicz 14:00: [id number] 00 Safety can be left Safety Active Eliceo alone for 10-24 Kobziewicz only short 14:00: [id number] periods 00 Balance/End balance/direct marketing coordinator PT/OT: Resolve 2018-11-01 Eliceo urance rdination Balance/En d 10-24 09:55:00 Star deficit durance 14:00: [id number] 00 OT: Self self-care OT: Resolve 2018-11-01 Eliceo Care deficit Self-Care d 10-24 09:55:00 Star 14:00: [id number] 00 OT: Self knowledge/s OT: Resolve 2018-11-01 Eliceo Care kill Self-Care d 10-24 09:55:00 [place] deficit: pt 14:00: [id number] 00 OT: Self knowledge/s OT: Resolve 2018-11-01 Eliceo Care kill Self-Care d 10-24 09:55:00 [place] deficit: cg 14:00: [id number] 00 Gait/Locomo gait PT/OT: Resolve 2018-11-01 Eliceo tion deficit Gait/Locom d 10-24 09:55:00 Star problems otion 14:00: [id number] 00 Gait/Locomo gait PT/OT: Resolve 2018-11-01 Eliceo tion assistive Gait/Locom d 11-01 09:55:00 Star problems device otion 09:55: [id number] present 00 Respiratory smoker Respirator Active 2019-0 Cherrise y 9-10 Loman 11:20: [id number] 00 Elimination bowel Eliminatio Active 2018-03 Cherrise incontinenc n 0-08 Loman e 12:00: [id number] 00 Elimination diarrhea Eliminatio Active 2018-03 Cherrise n 0-08 José Luis 12:00: [id number] 00 Respiratory knowledge/s Respirator Active 2018-03 [place] kill y 0-22 Carrier RN deficit: pt 17:25: 00 Medication knowledge/s Meds Active 2018-03 [place] kill 0-22 Carrier RN deficit: cg 17:25: 00 Medication knowledge/s Meds Unknown 2018-03 [place] kill 03-25 Loman deficit: cg 12:25: [id number] 00 Test/Treatm venipunctur Test/Injec Resolve 2018-032019-02-06 [place] ent e ordered t/Arcadio d 03-28 11:50:00 Carrier RN Endo/Moy anti-coagul Endo/Moy Active 2018-03 Toby ation 2 Loman therapy 11:30: [id number] 00 Safety fire risk: Safety Active 2018-03 [...]
[2019-04-24] MEDS ORDERED: Albuterol 2.5 MG/3 ML NEB.SOL* (0.083%) INH ONE (11:18)
[2019-04-24 12:12] LABS: Influenza A Molecular Negative (Negative); Influenza B Molecular Negative (Negative)
--- NOTE | 2019-04-24 12:18 | ED ---
Respiratory - HPI Summary HPI Summary: Patient is a 84 y/o F presenting to [facility] with complaints of productive cough, congestion, rhinorrhea, SOB, [place], and rib pain. Sputum has been a green/yellow/ brown color. She states that she has been feeling congested since she was placed on o2 last March. She is on 2 L o2 at home. Fevers are denied. Hx of COPD noted. She states that she has been taking symbicort, albuterol with no relief in Sx. Home medications and allergies are reviewed. - History of Current Complaint Stated Complaint: GENERAL ILLNESS PER EMS Time Seen by Provider: 04/24/19 10:58 Hx Obtained From: Patient Onset/Duration: Still Present Timing: Constant Current Severity: Severe Pain Intensity: 7 Character: Cough (Productive) Sputum Color: Yellow, Green, Brown Associated Signs and Symptoms: SOB, Nasal Congestion - Allergy/Home Medications Allergies/Adverse Reactions: Allergies Allergy/AdvReac Type Severity Reaction Status Date / Time bupropion [From Wellbutrin] Allergy Unknown Verified 04/24/19 12:53 Reaction Details carbamazepine Allergy Unknown Verified 04/24/19 12:53 Reaction Details clindamycin Allergy Unknown Verified 04/24/19 12:53 Reaction Details divalproex sodium Allergy Unknown Verified 04/24/19 12:53 [From Depakote] Reaction Details fluticasone Allergy Unknown Verified 04/24/19 12:53 [From Advair Diskus] Reaction Details iodine Allergy Anaphylatic Verified 04/24/19 12:53 Shock latex Allergy Unknown Verified 04/24/19 12:53 Reaction Details levofloxacin [From Levaquin] Allergy Unknown Verified 04/24/19 12:53 Reaction Details lidocaine Allergy Unknown Verified 04/24/19 12:53 Reaction Details olanzapine [From Zyprexa] Allergy Unknown Verified 04/24/19 12:53 Reaction Details paroxetine [From Paxil] Allergy Agitation Verified 04/24/19 12:53 phenytoin [From Dilantin] Allergy Unknown Verified 04/24/19 12:53 Reaction Details prednisone Allergy Unknown Verified 04/24/19 12:53 Reaction Details salmeterol Allergy Unknown Verified 04/24/19 12:53 [From Advair Diskus] Reaction Details Sulfa (Sulfonamide Allergy Swelling Verified 04/24/19 12:53 Antibiotics) Of Face,Lips,& Throat Tetracyclines Allergy Unknown Verified 04/24/19 12:53 Reaction Details triamcinolone [From Azmacort] Allergy Unknown Verified 04/24/19 12:53 Reaction Details Home Medications: Home Medications Acetaminophen [Tylenol Extra Strength] 1,000 mg PO BID PRN 04/24/19 [History Confirmed 04/24/19] Ascorbic Acid TAB* [Vitamin C TAB*] 500 mg PO MOWEFR 04/24/19 [History Confirmed 04/24/19] Cetirizine* [ZyrTEC 10 MG TAB*] 10 mg PO DAILY 04/24/19 [History Confirmed 04/24] Cholecalciferol CAP/TAB(NF) [Vitamin D3 CAP/TAB (NF)] 50,000 unit PO MONTHLY 07/08 [History Confirmed 04/24/19] Ferrous Sulfate TAB* 325 mg PO DAILY 04/24/19 [History Confirmed 04/24/19] Gabapentin CAP(*) [Neurontin 300 CAP(*)] 300 mg PO .NOON, EVENING 04/24/19 [ History Confirmed 04/24/19] Hydrocortisone 2.5% CREAM(NF) 1 applic TOPICAL DAILY 04/24/19 [History Confirmed 04/24/19] Lidocaine PATCH 5%* [Lidoderm 5% Patch*] 1 patch TRANSDERM DAILY 04/24/19 [ History Confirmed 04/24/19] Nicotine PATCH 21 MG/24 HR* 1 patch TRANSDERM DAILY 04/24/19 [History Confirmed 04/24/19] Nystatin SUSPENSION ORAL SYR* 5 ml SWISH SPIT QID 04/24/19 [History Confirmed ] Polyethylene Glycol 3350* [Miralax (17 GM DOSE GIULIANA)] 17 gm PO DAILY 04/24/19 [ History Confirmed 04/24/19] Psyllium Husk/Aspartame [Metamucil Powder] 1 gm PO QID 04/24/19 [History Confirmed 04/24/19] Ranitidine HCl (Nf) [Zantac] 75 mg PO DAILY PRN 04/24/19 [History Confirmed 07/08] PMH/Surg Hx/FS Hx/Imm Hx Endocrine/Hematology History: Reports: Hx Thyroid Disease - HASHIMOTOS, Hx Anemia - CHRONIC HEMOLYTIC ANEMIA Denies: Hx Anticoagulant Therapy, Hx Diabetes Cardiovascular History: Reports: Hx Coronary Artery Disease, Hx Hypercholesterolemia, Hx Hypertension Denies: Hx Pacemaker/ICD Comment Only: Other Cardiovascular Problems/Disorders - HX OF MASTECTOMY Respiratory History: Reports: Hx Chronic Bronchitis - not chronic, Hx Chronic Obstructive Pulmonary Disease (COPD) - CAD, Hx Pneumonia, Other Respiratory Problems/Disorders - emphysema Denies: Hx Asthma GI History: Reports: Hx Gastroesophageal Reflux Disease, Hx Hiatal Hernia, Hx Irritable Bowel, Hx Obstructive Bowel, Other GI Disorders - small bowel obstruction History: Reports: Hx Acute Renal Failure, Hx Kidney Stones, Hx Renal Disease - 1 KIDNEY, Other Problems/Disorders - renal disease Musculoskeletal History: Reports: Hx Arthritis - OSTEOARTHRITIS, Hx Osteoporosis Denies: Hx Rheumatoid Arthritis Sensory History: Reports: Hx Cataracts Denies: Hx Contacts or Glasses, Hx Legally Blind, Hx Deafness, Hx Hearing Aid Opthamlomology History: Reports: Hx Cataracts Denies: Hx Contacts or Glasses, Hx Legally Blind Neurological History: Reports: Hx Headaches - WITH ELEVATION IN BLOOD PRESSURE, Hx Migraine - WITH VALSALVAR MOVEMENT, Hx Seizures - BI-TEMPORAL INCOMPLETE FOCAL SEIZURES Psychiatric History: Reports: Hx Anxiety Denies: Hx Panic Disorder - Cancer History Cancer Type, Location and Year: BREAST CA Hx Chemotherapy: Yes - 1990 Hx Radiation Therapy: No - Surgical History Surgery Procedure, Year, and Place: CARDIAC CATHS HEART STENT CATARACT SURGERY BILATERAL EYES. LEFT MASTECTOMY;. LEFT LYMPH NODES REMOVED; LYMPHADEMA EXTRACTION. SPLENECTOMY;. RIGHT NEPHRECTOMY;. RIGHT KNEE SCOPING ( [place]);. BILATERAL URETER REPAIRS A CHILD;. BLADDER REPAIR ([place]); . TONSILS AND APPENDECTOMY YOUNG CHILD;. HEMATOMA REMOVED FROM SPINE;. UTERINE FIBROIDS REMOVED WITH D&CX3;. LITHOTRIPSY; Hx Anesthesia Reactions: Yes - Immunization History Date of Tetanus Vaccine: utd Date of Influenza Vaccine: fall 2017 Infectious Disease History: No Infectious Disease History: Denies: Traveled Outside the [place] in Last 30 Days - Family History Known Family History: Positive: Respiratory Disease - COPD - Social History Alcohol Use: None Hx Substance Use: No Substance Use Type: Reports: None Hx Tobacco Use: Yes Smoking Status (MU): Light Every Day Tobacco Smoker Type: Cigarettes Amount Used/How Often: 1 ppd 50 yrs Length of Time of Smoking/Using Tobacco: 50 years Have You Smoked in the Last Year: Yes Review of Systems Negative: Fever Positive: Nasal Discharge Respiratory: Other - positive - congestion Positive: Shortness Of Breath, Cough Musculoskeletal: Other - positive - rib pain Positive: Headache All Other Systems Reviewed And Are Negative: Yes Physical Exam - Summary Physical Exam Summary: Constitutional: Well-developed, Well-nourished, Alert. (-) Distressed Skin: Warm, Dry HENT: Normocephalic; Atraumatic Eyes: Conjunctiva normal Neck: Musculoskeletal ROM normal neck. (-) JVD, (-) Stridor, (-) Tracheal deviation Cardio: Rhythm regular, rate normal, Heart sounds normal; Intact distal pulses; Radial pulses are 2+ and symmetric. (-) Murmur Pulmonary/Chest wall: Mild expiratory wheezing noted, patient can speak in full sentences. (-) Respiratory distress, (-) Rales Abd: Soft, (-) tenderness, (-) Distension, (-) Guarding, (-) Rebound Musculoskeletal: (-) Edema Lymph: (-) Cervical adenopathy Neuro: Alert, Oriented x3 Psych: Mood and affect Normal Triage Information Reviewed: Yes Vital Signs On Initial Exam: Initial Vitals Temp Pulse Resp BP Pulse Ox 97.6 F 78 20 152/69 94 04/24/19 11:10 04/24/19 11:10 04/24/19 11:10 04/24/19 11:10 04/24/19 11:10 Vital Signs Reviewed: Yes Procedures - Sedation Patient Received Moderate/Deep Sedation with Procedure: No Diagnostics - Vital Signs Vital Signs Temp Pulse Resp BP Pulse Ox 04/24/19 11:10 97.6 F 78 20 152/69 94 - Laboratory Lab Results: Lab Results 04/24/19 Range/Units 11:39 Influenza A (Rapid) Negative (Negative) Influenza B (Rapid) Negative (Negative) Lab Statement: Any lab studies that have been ordered have been reviewed, and results considered in the medical decision making process. - Radiology CXR Radiology Interpretation Completed By: Radiologist Summary of Radiographic Findings: IMPRESSION: HYPERINFLATION, CONSISTENT WITH COPD. NO ACTIVE CARDIOPULMONARY DISEASE. THIS REPORT WAS REVIEWED BY ED PHYSICIAN. - EKG 1205 Cardiac Rate: NL - rate of 70 BPM EKG Rhythm: Sinus Rhythm Summary of EKG Findings: EKG showed sinus rhythm with rate of 70 BPM, limited EKG due to motion artifact, no obvious ischemic changes, no STEMI. ED physician has reviewed and interpreted this EKG. Disposition - Course Course Of Treatment: Patient is here with nasal congestion and cough. Patient' s been having symptoms like this for the past year. Today, patient became nervous that she was having trouble breathing. Patient was very well-appearing upon arrival. Patient had a negative flu swab, negative chest x-ray for pneumonia. Patient is given a nebulizer treatment with improvement in her symptoms. Given patient's COPD exacerbation, patient was started on Augmentin. Patient is not started on steroids due to her age - Diagnoses Provider Diagnoses: Chronic cough, COPD (chronic obstructive pulmonary disease) Discharge ED - Sign-Out/Discharge Documenting (check all that apply): Patient Departure - discharge - Discharge Plan Condition: Stable Disposition: HOME Prescriptions: Amoxicillin/Clavulanate TAB* [Augmentin TAB 875*] 875 mg PO BID 5 Days #10 tab Patient Education Materials: COPD (Chronic Obstructive Pulmonary Disease) (ED) , Chronic Cough (ED) Referrals: Nancy Burciaga MD [Primary Care Provider] - 3 Days Additional Instructions: PLEASE TAKE YOUR ANTIBIOTICS PRESCRIBED. FOLLOW UP WITH YOUR PRIMARY CARE PHYSICIAN WITHIN THREE DAYS. PLEASE RETURN TO ED FOR SEVERE CHEST PAIN, SEVERE SHORTNESS OF BREATH, OR ANY OTHER CONCERNING SYMPTOMS. - Billing Disposition and Condition Condition: STABLE Disposition: Home - Attestation Statements Document Initiated by Aaron: Yes Documenting Scribe: RAINA VAZQUEZ Provider For Whom Aaron is Documenting (Include Credential): MELISSA ALTAMIRANO MD Scribe Attestation: RAINA Gan, scribed for MELISSA ALTAMIRANO MD on 04/24/19 at 2132. Scribe Documentation Reviewed: Yes Provider Attestation: The documentation as recorded by the RAINA conner accurately reflects the service I personally performed and the decisions made by MELISSA godwin MD Status of Scribe Document: Viewed
[2019-04-24] MEDS ORDERED: HYDROcodone/ACETAMIN 5-325 MG* 1 TAB PO ONE (12:42)
[2019-04-24 14:03] VITALS: BP 137/61
== END 2019-04-24 14:21 | disposition home or self-care (01) ==
LOC: ED 10:51
DX: J44.9 Chronic obstructive pulmonary disease, unspecified (principal); Z99.81 Dependence on supplemental oxygen; E06.3 Autoimmune thyroiditis; D64.9 Anemia, unspecified; I25.10 Atherosclerotic heart disease of native coronary artery without angina pectoris; E78.00 Pure hypercholesterolemia, unspecified; I10 Essential (primary) hypertension; K21.9 Gastro-esophageal reflux disease without esophagitis; F41.9 Anxiety disorder, unspecified; F17.210 Nicotine dependence, cigarettes, uncomplicated; Z79.899 Other long term (current) drug therapy; Z95.5 Presence of coronary angioplasty implant and graft; Z90.12 Acquired absence of left breast and nipple; Z90.81 Acquired absence of spleen; Z90.5 Acquired absence of kidney; Z90.89 Acquired absence of other organs; Z88.1 Allergy status to other antibiotic agents; Z88.2 Allergy status to sulfonamides; Z88.8 Allergy status to other drugs, medicaments and biological substances; Z91.041 Radiographic dye allergy status; Z91.040 Latex allergy status
CPT/HCPCS: 71046; 93005; 99283

== ENCOUNTER 2019-05-07 10:39 | Inpatient (IN) | payer MEDICARE, MEDICAID ==
--- NOTE | 2019-05-07 10:58 | ED ---
HPI Cardiac - HPI Summary HPI Summary: 84 year old F presenting to [facility] accompanied by EMS complains of waking up with CP and SOB since this morning 05/07/2019. 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 She presented to [facility] 2019 for similar symptoms and was given symbicort and amoxicillin. Prednisone use noted as well. 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 SocHx of smoking. The patient rates the pain 2/10 in severity. Symptoms aggravated by nothing. Symptoms alleviated by sitting. - History of Current Complaint Chief Complaint: EDUpperRespComplaint Stated Complaint: UPPER RESPIRATORY ISSUE Time Seen by Provider: 05/07/19 10:47 Hx Obtained From: Patient Onset/Duration: Started Hours Ago, Still Present Timing: Constant Initial Severity: Mild Pain Intensity: 2 Pain Scale Used: 0-10 Numeric Aggravating Factor(s): Nothing Alleviating Factor(s): Position - Sitting - Additional Pertinent History Primary Care Physician: KENJI - Allergy/Home Medications Allergies/Adverse Reactions: Allergies Allergy/AdvReac Type Severity Reaction Status Date / Time bupropion [From Wellbutrin] Allergy Unknown Verified 04/24/19 12:53 Reaction Details carbamazepine Allergy Unknown Verified 04/24/19 12:53 Reaction Details clindamycin Allergy Unknown Verified 04/24/19 12:53 Reaction Details divalproex sodium Allergy Unknown Verified 04/24/19 12:53 [From Depakote] Reaction Details fluticasone Allergy Unknown Verified 04/24/19 12:53 [From Advair Diskus] Reaction Details iodine Allergy Anaphylatic Verified 04/24/19 12:53 Shock latex Allergy Unknown Verified 04/24/19 12:53 Reaction Details levofloxacin [From Levaquin] Allergy Unknown Verified 04/24/19 12:53 Reaction Details lidocaine Allergy Unknown Verified 04/24/19 12:53 Reaction Details olanzapine [From Zyprexa] Allergy Unknown Verified 04/24/19 12:53 Reaction Details paroxetine [From Paxil] Allergy Agitation Verified 04/24/19 12:53 phenytoin [From Dilantin] Allergy Unknown Verified 04/24/19 12:53 Reaction Details prednisone Allergy Unknown Verified 04/24/19 12:53 Reaction Details salmeterol Allergy Unknown Verified 04/24/19 12:53 [From Advair Diskus] Reaction Details Sulfa (Sulfonamide Allergy Swelling Verified 04/24/19 12:53 Antibiotics) Of Face,Lips,& Throat Tetracyclines Allergy Unknown Verified 04/24/19 12:53 Reaction Details triamcinolone [From Azmacort] Allergy Unknown Verified 04/24/19 12:53 Reaction Details Home Medications: Home Medications Dextromethorphan Hb/Doxylamine [Robitussin Nighttime Cough Dm] 10 ml PO TID [History Confirmed 05/07/19] Ergocalciferol CAP* [Drisdol CAP*] 50,000 units PO MONTHLY 05/07/19 [History Confirmed 05/07/19] HYDROcodone/ACETAMIN 5-325 MG* [[place] 5-325 TAB*] 1 tab PO TID PRN MDD 3 [History Confirmed 05/07/19] Methyl Salicylate/Menthol [Salonpas Patch] 1 patch TRANSDERM Q8H PRN 05/07/19 [ History Confirmed 05/07/19] Nicotine PATCH 14 MG/24 HR* 14 mg TRANSDERM DAILY 05/07/19 [History Confirmed ] Peg 400/Hypromellose/Glycerin [Dry Eye Relief Eye Drops] 2 drop BOTH EYES Q3H PRN 05/07/19 [History Confirmed 05/07/19] PMH/Surg Hx/FS Hx/Imm Hx Endocrine/Hematology History: Reports: Hx Thyroid Disease - HASHIMOTOS, Hx Anemia - CHRONIC HEMOLYTIC ANEMIA Denies: Hx Anticoagulant Therapy, Hx Diabetes Cardiovascular History: Reports: Hx Coronary Artery Disease, Hx Hypercholesterolemia, Hx Hypertension Denies: Hx Pacemaker/ICD Comment Only: Other Cardiovascular Problems/Disorders - HX OF MASTECTOMY Respiratory History: Reports: Hx Chronic Bronchitis - not chronic, Hx Chronic Obstructive Pulmonary Disease (COPD) - CAD, Hx Pneumonia, Other Respiratory Problems/Disorders - emphysema Denies: Hx Asthma GI History: Reports: Hx Gastroesophageal Reflux Disease, Hx Hiatal Hernia, Hx Irritable Bowel, Hx Obstructive Bowel, Other GI Disorders - small bowel obstruction History: Reports: Hx Acute Renal Failure, Hx Kidney Stones, Hx Renal Disease - 1 KIDNEY, Other Problems/Disorders - renal disease Musculoskeletal History: Reports: Hx Arthritis - OSTEOARTHRITIS, Hx Osteoporosis Denies: Hx Rheumatoid Arthritis Sensory History: Reports: Hx Cataracts Denies: Hx Contacts or Glasses, Hx Legally Blind, Hx Deafness, Hx Hearing Aid Opthamlomology History: Reports: Hx Cataracts Denies: Hx Contacts or Glasses, Hx Legally Blind Neurological History: Reports: Hx Headaches - WITH ELEVATION IN BLOOD PRESSURE, Hx Migraine - WITH VALSALVAR MOVEMENT, Hx Seizures - BI-TEMPORAL INCOMPLETE FOCAL SEIZURES Psychiatric History: Reports: Hx Anxiety Denies: Hx Panic Disorder - Cancer History Cancer Type, Location and Year: BREAST CA Hx Chemotherapy: Yes - 1990 Hx Radiation Therapy: No - Surgical History Surgery Procedure, Year, and Place: CARDIAC CATHS HEART STENT CATARACT SURGERY BILATERAL EYES. LEFT MASTECTOMY;. LEFT LYMPH NODES REMOVED; LYMPHADEMA EXTRACTION. SPLENECTOMY;. RIGHT NEPHRECTOMY;. RIGHT KNEE SCOPING ( [place]);. BILATERAL URETER REPAIRS A CHILD;. BLADDER REPAIR ([place]); . TONSILS AND APPENDECTOMY YOUNG CHILD;. HEMATOMA REMOVED FROM SPINE;. UTERINE FIBROIDS REMOVED WITH D&CX3;. LITHOTRIPSY; Hx Anesthesia Reactions: Yes - Immunization History Date of Tetanus Vaccine: utd Date of Influenza Vaccine: fall 2017 Infectious Disease History: No Infectious Disease History: Denies: Traveled Outside the [place] in Last 30 Days - Family History Known Family History: Positive: Respiratory Disease - COPD - Social History Alcohol Use: None Hx Substance Use: No Substance Use Type: Reports: None Hx Tobacco Use: Yes Smoking Status (MU): Light Every Day Tobacco Smoker Type: Cigarettes Amount Used/How Often: 1 ppd 50 yrs Length of Time of Smoking/Using Tobacco: 50 years Have You Smoked in the Last Year: Yes Review of Systems ENT: Other - nasal congestion Negative: Chest Pain Positive: Other - skilled nursing bronchitis. Negative: Shortness Of Breath All Other Systems Reviewed And Are Negative: Yes Physical Exam - Summary Physical Exam Summary: Appearance: The patient is well-nourished in no acute distress and in no acute pain. Skin: The skin is warm and dry, and skin color reflects adequate perfusion. HEENT: The head is normocephalic and atraumatic. The pupils are equal and reactive. The conjunctivae are clear and without drainage. Nares are patent and without drainage. Mouth reveals moist mucous membranes, and the throat is without erythema and exudate. The external ears are intact. The ear canals are patent and without drainage. The tympanic membranes are intact. Neck: The neck is supple with full range of motion and non-tender. There are no carotid bruits. There is no neck vein distension. Respiratory: Diffuse expiratory wheezes. Cardiovascular: Heart is regular rate and rhythm. There is no murmur or rub auscultated. There is no peripheral edema and pulses are symmetrical and equal. Abdomen: The abdomen is soft and non-tender. There are normal bowel sounds heard in all four quadrants and there is no organomegaly palpated. Musculoskeletal: There is no back tenderness noted. Extremities are non-tender with full range of motion. There is good capillary refill. There is no peripheral edema or calf tenderness elicited. Neurological: Patient is alert and oriented to person, place and time. The patient has symmetrical motor strength in all four extremities. Cranial nerves are grossly intact. Deep tendon reflexes are symmetrical and equal in all four extremities. Psychiatric: The patient has an appropriate affect and does not exhibit any anxiety or depression. Triage Information Reviewed: Yes Vital Signs On Initial Exam: Initial Vitals Temp Pulse Resp BP Pulse Ox 99.3 F 81 17 164/71 95 05/07/19 10:45 05/07/19 10:45 05/07/19 10:45 05/07/19 10:45 05/07/19 10:45 Vital Signs Reviewed: Yes Procedures - Sedation Patient Received Moderate/Deep Sedation with Procedure: No Diagnostics - Vital Signs Vital Signs Temp Pulse Resp BP Pulse Ox 05/07/19 10:45 99.3 F 81 17 164/71 95 - Laboratory Result Diagrams: 05/07/19 11:15 05/07/19 11:15 Lab Statement: Any lab studies that have been ordered have been reviewed, and results considered in the medical decision making process. - Radiology CXR Radiology Interpretation Completed By: Radiologist Summary of Radiographic Findings: IMPRESSION: NO ACTIVE CARDIOPULMONARY DISEASE. has reviewed this report. - EKG 1128 Cardiac Rate: NL EKG Rhythm: Sinus Rhythm Summary of EKG Findings: EKG at 1128 reveals normal sinus rhythm, normal ST, no ectopy, no STEMI at a rate of 92 bpm. has reviewed and interpreted this EKG. 1143 Cardiac Rate: NL EKG Rhythm: Sinus Rhythm Summary of EKG Findings: EKG at 1143 reveals normal sinus rhythm, normal ST, no ectopy, no STEMI with baseline wander and a rate of 99. has reviewed and interpreted this EKG. Re-Evaluation - Re-Evaluation 1142 Re-Evaluation Time: 11:42 Change: Worse Comment: 1142: patients complains of CP. Pulse in 180s. Tachycardic and tachypnic. Disposition - Course Course Of Treatment: Ms. Walker looked pretty stable when she arrived. She did have some diffuse expiratory wheezes was tolerating them well. She was given a DuoNeb and improved. She was also given steroids but then at one point she dramatically worsened drop her pulse ox is into the low 80s in spite of being on a and a percent oxygen. She was placed on BiPAP at that point and given some Ativan as she had a difficult time tolerating the BiPAP. I spoke with the raisin separator operator Dr. Staples who came down and evaluated her. By the time he came down she was doing much better and he was able to wean her off the BiPAP and requested that I speak with the hospitalist. I spoke with Dr. Spence in the hospitalists team admitted her. - Diagnoses Provider Diagnoses: COPD exacerbation, Respiratory insufficiency - Physician Notifications Discussed Care Of Patient With: Robert Staples - admit Time Discussed With Above Provider: 12:05 Instructed by Provider To: Admit As Inpatient Discharge ED - Sign-Out/Discharge Documenting (check all that apply): Patient Departure - admit - Discharge Plan Condition: Stable Disposition: ADMITTED TO [facility] Referrals: Nancy Burciaga MD [Primary Care Provider] - - Billing Disposition and Condition Condition: STABLE Disposition: Admitted to [facility] - Attestation Statements Document Initiated by Aaron: Yes Documenting Scribe: Fredi Sanchez Provider For Whom Aaron is Documenting (Include Credential): Brandin Apple MD Scribe Attestation: I, Fredi Sanchez, scribed for Brandin Apple MD on 05/07/19 at 1622. Scribe Documentation Reviewed: Yes Provider Attestation: The documentation as recorded by the Fredi conner accurately reflects the service I personally performed and the decisions made by me, Brandin Apple MD Status of Scribe Document: Viewed
[2019-05-07] MEDS ORDERED: methylPREDNISolone 125 MG* 2 ML VIAL IV ONE (11:06)
[2019-05-07 11:26] LABS: ABS Basophils 0.1 10^3/ul (0-0.2); ABS Eosinophils 0.1 10^3/ul (0-0.6); ABS Lymphocytes 2.1 10^3/ul (1.0-4.8); ABS Monocytes 1.3 10^3/ul (0-0.8); Eosinophil % 0.8 %; Hematocrit 38 % (35-47); Hemoglobin 12.6 g/dL (12.0-16.0); Lymphocyte % 12.7 %; Mean Corpuscular HGB Conc 34 g/dL (31-36); Mean Corpuscular Hemoglobin 31 pg (27-31); Mean Corpuscular Volume 92 fL (80-97); Mean Platelet Volume 8.6 fL (7.4-10.4); Nucleated Red Blood Cells % 0.1; Platelet Count 310 10^3/uL (150-450); Red Blood Count 4.08 10^6 /uL (3.70-4.87); Red Cell Distribution Width 16 % (10-15); White Blood Count 16.7 10^3/uL (3.5-10.8)
[2019-05-07] MEDS ORDERED: Albuterol/Ipratropium NEB.SOL* Albuterol 2.5 MG/Ipratropium 0.5 MG 3 ML INH ONE (11:42)
[2019-05-07] MEDS ORDERED: Albuterol/Ipratropium NEB.SOL* Albuterol 2.5 MG/Ipratropium 0.5 MG 3 ML ONE (11:42)
[2019-05-07 11:47] LABS: Albumin/Globulin Ratio 1.3 (1-3); BUN/Creatinine Ratio 24.1 (8-20); C Reactive Protein 1.58 mg/L (<8.01); Calcium 9.4 mg/dL (8.6-10.3); EGFR African American 74.9 (>60); EGFR Non-African American 61.9 (>60); Globulin 3.1 g/dL (2-4); Potassium 4.1 mmol/L (3.5-5.0); Total Bilirubin 0.3 mg/dL (0.2-1.0); Total Protein 7.1 g/dL (6.4-8.9)
--- OUTSIDE RECORDS SUMMARY | 2019-05-07 11:47 | XMS REPORT ---
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 Diagnosis Active [place] (current) (current) Carrier RN use of use of non-steroid non-steroid al al anti-inflam anti-inflam matories matories (NSAID) (NSAID) Personal Personal Diagnosis Active [place] history of history of Carrier RN pneumonia pneumonia (recurrent) (recurrent) 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 Pain frequent Pain Mgmt Active Aura pain 09-15 [place] 10:19: [id number] 00 Pain knowledge/s Pain Mgmt Active Aura kill 09-15 [place] deficit: pt 10:19: [id number] 00 Respiratory dyspnea Respirator Active Aura present y 09-15 [place] 10:19: [id number] 00 Respiratory oxygen Respirator Active Aura treatments y 09-15 [place] in home 10:19: [id number] 00 Respiratory nebulizer Respirator Active Aura treatment y 09-15 [place] in home 10:19: [id number] 00 Sensory impaired Sensory Active Aura hearing 09-15 [place] 10:19: [id number] 00 Nutrition nutritional Nutrition Active Aura restriction 09-15 [place] s 10:19: [id number] 00 Elimination urinary Eliminatio Active Aura incontinenc n 09-15 [place] e 10:19: [id number] 00 Neuro confusion Neuro/Emot Active Aura present ion 09-15 [place] 10:19: [id number] 00 Neuro impaired Neuro/Emot Active Aura decision-ma ion 09-15 [place] rafa 10:19: [id number] 00 Neuro memory Neuro/Emot Active Aura deficit ion 09-15 [place] needing 10:19: [id number] supervision 00 Activity ADL Activity Active Aura assistance 09-15 [place] required 10:19: [id number] 00 Activity self-care Activity Active Aura deficit 09-15 [place] 10:19: [id number] 00 Safety structural Safety Active Aura barriers 09-15 [place] present 10:19: [id number] 00 Safety fall risk Safety Active Aura factor 09-15 [place] present 10:19: [id number] 00 Safety risk for Safety Active Aura hospitaliza 09-15 [place] tion 10:19: [id number] 00 Medication oral med Meds Active Aura assistance 09-15 [place] required 10:19: [id number] 00 Medication knowledge/s Meds Active Aura kill 09-15 [place] deficit: pt 10:19: [id number] 00 Musculoskel transfer Musculoske Active Aura etal assistance letal 09-15 [place] required 10:19: [id number] 00 Musculoskel requires Musculoske Active Aura etal human letal 09-15 [place] assist to 10:19: [id number] leave home 00 Respiratory lung sounds Respirator Active [place] deficit y 09-18 Carrier RN 16:20: 00 Integument knowledge/s Integument Active [place] kill 09-18 Carrier RN deficit: pt 16:20: 00 Endo/Moy anti-coagul Endo/Moy Resolve 2019-01-31 Reina ation d 09-20 15:45:00 Addy therapy 14:00: [id number] 00 Medication potential Meds Active Reina clinically 09-20 [place] significant 14:00: [id number] medication 00 issue Elimination urinary Eliminatio Active Cherrise urgency n 7-10 [place] 13:15: [id number] 00 Elimination urinary Eliminatio Active Cherrise frequency n 7-10 [place] 13:15: [id number] 00 Elimination constipatio Eliminatio Active Cherrise n n 7-10 [place] 13:15: [id number] 00 Neuro depressive Neuro/Emot Active Cherrise feelings ion 7-17 [place] present 10:30: [id number] 00 Safety fire risk Safety Active Eliceo present 10-24 [place] 14:00: [id number] 00 Safety can be left Safety Active Eliceo alone for 10-24 [place] only short 14:00: [id number] periods 00 Balance/End balance/docent coordinator PT/OT: Resolve 2018-11-01 Eliceo urance rdination Balance/En d 10-24 09:55:00 Star deficit durance 14:00: [id number] 00 OT: Self self-care OT: Resolve 2018-11-01 Elcieo Care deficit Self-Care d 10-24 09:55:00 Star 14:00: [id number] 00 OT: Self knowledge/s OT: Resolve 2018-11-01 Eliceo Care kill Self-Care d 10-24 09:55:00 Star deficit: pt 14:00: [id number] 00 OT: Self knowledge/s OT: Resolve 2018-11-01 Eliceo Care kill Self-Care d 10-24 09:55:00 Star deficit: cg 14:00: [id number] 00 Gait/Locomo gait PT/OT: Resolve 2018-11-01 Eliceo tion deficit Gait/Locom d 10-24 09:55:00 Star problems otion 14:00: [id number] 00 Gait/Locomo gait PT/OT: Resolve 2018-11-01 Eliceo tion assistive Gait/Locom d 11-01 09:55:00 Star problems device otion 09:55: [id number] present 00 Respiratory smoker Respirator Active 2019-0 Cherrise y 9-10 [place] 11:20: [id number] 00 Elimination bowel Eliminatio Active 2018-03 Cherrise incontinenc n 0-08 [place] e 12:00: [id number] 00 Elimination diarrhea Eliminatio Active 2018-03 Cherrise n 0-08 [place] 12:00: [id number] 00 Respiratory knowledge/s Respirator Active 2018-03 [place] kill y 0-22 Carrier RN deficit: pt 17:25: 00 Medication knowledge/s Meds Active 2018-03 [place] kill 0-22 Carrier RN deficit: cg 17:25: 00 Medication knowledge/s Meds Unknown 2018-03 [place] kill 03-25 [place] deficit: cg 12:25: [id number] 00 Test/Treatm venipunctur Test/Injec Resolve 2018-032019-02-06 [place] ent e ordered t/Arcadio d 03-28 11:50:00 Carrier RN Endo/Moy anti-coagul Endo/Moy Active 2018-03 Toby ation 2 [place] therapy 11:30: [id number] 00 Safety fire risk: Safety Active 2018-03 [...] Unknown n 40 mg n 40 mg 0 MD,Nancy tablet tablet omeprazole omeprazole No Jander [...] Observation Time Observation Value Comments SYSTOLIC mm[Hg] 2019-05-01 18:10:20 118 mm[Hg] mm[Hg] Method: Sit SYSTOLIC mm[Hg] 2018-09-15 18:06:32 110 mm[Hg] mm[Hg] Method: Stand DIASTOLIC mm[Hg] 2019-05-01 18:10:20 60 mm[Hg] mm[Hg] Method: Sit DIASTOLIC mm[Hg] 2018-09-15 18:06:32 60 mm[Hg] mm[Hg] Method: Stand PULSE 2019-05-01 18:10:20 70 /min /min RESP RATE 2019-05-01 18:10:20 18 /min /min TEMP 2019-05-01 18:10:20 98.3 [degF] Procedures This patient has no known procedures. Results This patient has no known results.
--- OUTSIDE RECORDS SUMMARY | 2019-05-07 11:47 | XMS REPORT ---
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 [facility] Diagnosis Active [place] (current) (current) Carrier RN use of use of non-steroid non-steroid al al anti-inflam anti-inflam matories matories (NSAID) (NSAID) Personal Personal Diagnosis Active [place] history of history of Carrier RN pneumonia pneumonia (recurrent) (recurrent) 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 Pain frequent Pain Mgmt Active Aura pain 09-15 [place] 10:19: [id number] 00 Pain knowledge/s Pain Mgmt Active Aura kill 09-15 [place] deficit: pt 10:19: [id number] 00 Respiratory dyspnea Respirator Active Aura present y 09-15 [place] 10:19: [id number] 00 Respiratory oxygen Respirator Active Aura treatments y 09-15 [place] in home 10:19: [id number] 00 Respiratory nebulizer Respirator Active Aura treatment y 09-15 [place] in home 10:19: [id number] 00 Sensory impaired Sensory Active Aura hearing 09-15 [place] 10:19: [id number] 00 Nutrition nutritional Nutrition Active Aura restriction 09-15 [place] s 10:19: [id number] 00 Elimination urinary Eliminatio Active Aura incontinenc n 09-15 [place] e 10:19: [id number] 00 Neuro confusion Neuro/Emot Active Aura present ion 09-15 [place] 10:19: [id number] 00 Neuro impaired Neuro/Emot Active Aura decision-ma ion 09-15 [place] rafa 10:19: [id number] 00 Neuro memory Neuro/Emot Active Aura deficit ion 09-15 [place] needing 10:19: [id number] supervision 00 Activity ADL Activity Active Aura assistance 09-15 [place] required 10:19: [id number] 00 Activity self-care Activity Active Aura deficit 09-15 [place] 10:19: [id number] 00 Safety structural Safety Active Aura barriers 09-15 [place] present 10:19: [id number] 00 Safety fall risk Safety Active Aura factor 09-15 [place] present 10:19: [id number] 00 Safety risk for Safety Active Aura hospitaliza 09-15 [place] tion 10:19: [id number] 00 Medication oral med Meds Active Aura assistance 09-15 [place] required 10:19: [id number] 00 Medication knowledge/s Meds Active Aura kill 09-15 [place] deficit: pt 10:19: [id number] 00 Musculoskel transfer Musculoske Active Aura etal assistance letal 09-15 [place] required 10:19: [id number] 00 Musculoskel requires Musculoske Active Aura etal human letal 09-15 [place] assist to 10:19: [id number] leave home 00 Respiratory lung sounds Respirator Active [place] deficit y 09-18 Carrier RN 16:20: 00 Integument knowledge/s Integument Active [place] kill 09-18 Carrier RN deficit: pt 16:20: 00 Endo/Moy anti-coagul Endo/Moy Resolve 2019-01-31 Reina ation d 09-20 15:45:00 Addy therapy 14:00: [id number] 00 Medication potential Meds Active Reina clinically 09-20 Add[place] significant 14:00: [id number] medication 00 issue Elimination urinary Eliminatio Active Cherrise urgency n 7-10 [place] 13:15: [id number] 00 Elimination urinary Eliminatio Active Cherrise frequency n 7-10 [place] 13:15: [id number] 00 Elimination constipatio Eliminatio Active Cherrise n n 7-10 [place] 13:15: [id number] 00 Neuro depressive Neuro/Emot Active Cherrise feelings ion 7-17 [place] present 10:30: [id number] 00 Safety fire risk Safety Active Eliceo present 10-24 [place] 14:00: [id number] 00 Safety can be left Safety Active Eliceo alone for 10-24 [place] only short 14:00: [id number] periods 00 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 PT/OT: Resolve 2018-11-01 Eliceo urance rdination Balance/En d 10-24 09:55:00 Star deficit durance 14:00: [id number] 00 OT: Self self-care OT: Resolve 2018-11-01 Eliceo Care deficit Self-Care d 10-24 09:55:00 [place] 14:00: [id number] 00 OT: Self knowledge/s OT: Resolve 2018-11-01 Eliceo Care kill Self-Care d 10-24 09:55:00 Star deficit: pt 14:00: [id number] 00 OT: Self knowledge/s OT: Resolve 2018-11-01 Eliceo Care kill Self-Care d 10-24 09:55:00 Star deficit: cg 14:00: [id number] 00 Gait/Locomo gait PT/OT: Resolve 2018-11-01 Eliceo tion deficit Gait/Locom d 10-24 09:55:00 Star problems otion 14:00: [id number] 00 Gait/Locomo gait PT/OT: Resolve 2018-11-01 Eliceo tion assistive Gait/Locom d 11-01 09:55:00 Star problems device otion 09:55: [id number] present 00 Respiratory smoker Respirator Active 2019-0 Cherrise y 9-10 [place] 11:20: [id number] 00 Elimination bowel Eliminatio Active 2018-03 Cherrise incontinenc n 0-08 [place] e 12:00: [id number] 00 Elimination diarrhea Eliminatio Active 2018-03 Cherrise n 0-08 [place] 12:00: [id number] 00 Respiratory knowledge/s Respirator Active 2018-03 [place] kill y 0-22 Carrier RN deficit: pt 17:25: 00 Medication knowledge/s Meds Active 2018-03 [place] kill 0-22 Carrier RN deficit: cg 17:25: 00 Medication knowledge/s Meds Unknown 2018-03 [place] kill 03-25 [place] deficit: cg 12:25: [id number] 00 Test/Treatm venipunctur Test/Injec Resolve 2018-032019-02-06 [place] ent e ordered t/Arcadio d 03-28 11:50:00 Carrier RN Endo/Moy anti-coagul Endo/Moy Active 2018-03 Toby ation 2 [place] therapy 11:30: [id number] 00 Safety fire risk: Safety Active 2018-03 [...]
[2019-05-07 11:48] LABS: Troponin I 0.02 ng/mL (<0.03)
[2019-05-07] MEDS ORDERED: Lorazepam PYXIS KEY PRN (11:55)
[2019-05-07] MEDS ORDERED: LORazepam INJ* 2 MG/ML 1 ML VIAL IV ONE (11:55)
[2019-05-07] MEDS ORDERED: Lorazepam PYXIS KEY ONE (11:58)
[2019-05-07] MEDS ORDERED: LORazepam INJ* 2 MG/ML 1 ML VIAL ONE (11:59)
[2019-05-07 14:40] LABS: Urine Appearance Clear; Urine Bilirubin Negative (Negative); Urine Blood Negative (Negative); Urine Color Yellow; Urine Glucose Negative (Negative); Urine Ketones Negative (Negative); Urine Nitrite Negative (Negative); Urine Protein 2+(100 mg/dL) (Negative); Urine Specific Gravity 1.017 (1.010-1.030); Urine Urobilinogen Negative (Negative)
[2019-05-07 14:49] LABS: Urine Bacteria Absent (Absent); Urine Red Blood Cell Absent (Absent); Urine White Blood Cell Trace(0-5/hpf) (Absent)
[2019-05-07] MEDS ORDERED: Ferrous Sulfate TAB* 325 MG PO SCH (16:00)
[2019-05-07] MEDS ORDERED: NS 0.9% 500 ML* 500 ML IV ONE (16:02)
[2019-05-07 16:15] LABS: Influenza A Molecular Negative (Negative); Influenza B Molecular Negative (Negative)
[2019-05-07] MEDS ORDERED: Albuterol/Ipratropium NEB.SOL* Albuterol 2.5 MG/Ipratropium 0.5 MG 3 ML INH PRN (16:31)
[2019-05-07 17:06] LABS: Troponin I 0.03 ng/mL (<0.03)
[2019-05-07] MEDS: Gabapentin CAP(*) 300 MG PO SCH ×2 (17:59→19:51)
[2019-05-07] MEDS ORDERED: Butalb/Acetamin/Caff TAB* 1 TAB PO ONE (18:00)
[2019-05-07] MEDS ORDERED: Albuterol/Ipratropium NEB.SOL* Albuterol 2.5 MG/Ipratropium 0.5 MG 3 ML INH SCH (19:00)
[2019-05-07 19:41] LABS: ABS Lymphocytes 0.8 10^3/ul (1.0-4.8); ABS Monocytes 0.1 10^3/ul (0-0.8); ABS Neutrophils 9.4 10^3/ul (1.5-7.7); Hematocrit 36 % (35-47); Lymphocyte % 7.6 %; Mean Corpuscular HGB Conc 34 g/dL (31-36); Mean Corpuscular Hemoglobin 31 pg (27-31); Mean Corpuscular Volume 93 fL (80-97); Mean Platelet Volume 8.6 fL (7.4-10.4); Nucleated Red Blood Cells % 0.1; Platelet Count 285 10^3/uL (150-450); Red Blood Count 3.83 10^6 /uL (3.70-4.87); Red Cell Distribution Width 16 % (10-15); White Blood Count 10.4 10^3/uL (3.5-10.8)
[2019-05-07] MEDS: Butalb/Acetamin/Caff TAB* 1 TAB PO PRN (19:49)
[2019-05-07] MEDS: Heparin VIAL(*) 5000 UNITS/ML VIAL (FIVE THOUSAND) SUBCUT SCH (19:52)
[2019-05-07] MEDS: Atorvastatin* 80 MG TAB PO SCH (19:52)
[2019-05-07] MEDS: Metoprolol Tartrate TAB* 25 MG PO SCH (19:53)
[2019-05-07] MEDS: Mirtazapine TAB* 15 MG PO SCH (19:55)
[2019-05-07] MEDS: Nicotine Patch Removal NOTE PATCH OFF SCH (19:56)
[2019-05-07 19:57] LABS: Activated Partial Thrombo Time 24.7 seconds (26.0-38.0); INR 0.95 (0.82-1.09)
[2019-05-07] MEDS: HYDROcodone/ACETAMIN 5-325 MG* 1 TAB PO PRN (19:57)
[2019-05-07] MEDS: Docusate CAP* 100 MG PO PRN (19:58)
[2019-05-07] MEDS ORDERED: methylPREDNISolone 125 MG* 2 ML VIAL IV SCH (20:00)
[2019-05-07 20:01] LABS: Blood Urea Nitrogen 21 mg/dL (6-24); EGFR African American 68.5 (>60); EGFR Non-African American 56.6 (>60)
[2019-05-07 20:02] LABS: Troponin I 0.03 ng/mL (<0.03)
--- NOTE | 2019-05-07 20:56 | HP ---
CC: Dr. Burciaga * HISTORY AND PHYSICAL: DATE OF ADMISSION: 05/07/19 PROVIDER: Josefina Sauceda NP PRIMARY CARE PROVIDER: Dr. Burciaga. ATTENDING PHYSICIAN WHILE IN THE HOSPITAL: Dr. Gutierrez * (dictated by Josefina Sauceda NP). CHIEF COMPLAINT: Shortness of breath and chest pain. HISTORY OF PRESENT ILLNESS: Nai Walker is an 84-year-old female patient with a history significant for COPD, CAD, non-STEMI, hypertension, DVT, aortic stenosis , seizure, GERD, hyperlipidemia, left breast cancer, arthritis, chronic pain. Ms. Walker woke up to use the bathroom this morning around 0700 and became extremely short of breath. Upon becoming short of breath, she took Symbicort, which did not help. She took the Symbicort approximately 4 more times without relief of symptoms of shortness of breath. The patient also reports that she developed some chest tightness with this shortness of breath, chest tightness and pain, 8/10 at its worst. The patient reports that she needed to be seated upright for any relief. The patient took a hydrocodone at 0900 today, which helped some. The patient reports that she does have a nebulizer at home, but decided that she did not want to try and use it because it was not in her normal morning routine and she did not have time. The patient did call 911 and received assistance from EMS. The patient reports that while in the ambulance, she was placed on supplemental oxygen at higher flow than she was using at home and this provided her some relief from her shortness of breath and chest tightness. The patient states that she continues to smoke cigarettes daily; however, she has cut down to 2 hand-rolled cigarettes daily. The patient reports that chest pain did last about 3 hours and she was very scared; however , now that she is in the hospital she is no longer in distress. She is on supplemental oxygen at 3 L per minute and she is comfortable; however, when she gets out of bed, she becomes severely short of breath and chest pain returns immediately. The patient has been out of bed to commode and she reports that it is very difficult for her. PAST MEDICAL HISTORY: COPD, CAD, non-STEMI, aortic stenosis, hyperlipidemia, chronic hemolytic anemia, hypothyroidism, Samantha's thyroiditis, GERD, DVT, arthritis, chronic pain, hypertension, IBS, left breast cancer, anxiety, seizures. PAST SURGICAL HISTORY: The patient had cardiac catheterization in 2016, left mastectomy, splenectomy, hysterectomy, bladder surgeries, appendectomy, bilateral knee arthroscopy, carpal tunnel repair, right nephrectomy, and ankle surgery. HOME MEDICATIONS: 1. Folic acid 1 mg tab p.o. daily. 2. Gabapentin 600 mg by mouth every morning and at bedtime. 3. Cyanocobalamin tab 500 mcg p.o. daily. 4. Aspirin enteric-coated tablet 81 mg p.o. daily. 5. Levothyroxine tab 25 mcg p.o. daily. 6. Propylene glycol 1 drop both eyes t.i.d. to 4 times daily as needed. 7. Fluticasone nasal spray 50 mcg 1 spray both nares daily. 8. Metoprolol tartrate 25 mg p.o. b.i.d. 9. Amlodipine 10 mg p.o. daily. 10. Incruse Ellipta (Umeclidinium) 62.5 MDI 1 puff at bedtime. 11. Mirtazapine tablet 7.5 mg p.o. at bedtime. 12. Fioricet 1 to 2 tablets by mouth 3 times a week as needed. 13. Atorvastatin 80 mg p.o. at bedtime. 14. Omeprazole 40 mg capsule 40 mg p.o. daily. 15. Guaifenesin/dextromethorphan/P (Mucinex) 1 tab p.o. every 12 hours. 16. Hypromellose (GenTeal Tears) 1 application both eyes daily as needed. 17. Colace 100 mg every p.m. as needed constipation. 18. Albuterol HFA inhaler 2 puffs inhaled every 4 hours as needed. 19. Ipratropium and albuterol nebulizer 1 vial inhaled b.i.d. 20. Mirtazapine 15 mg p.o. at bedtime. 21. Zofran ODT 8 mg p.o. daily as needed. 22. Cetirizine 10 mg p.o. at bedtime. 23. Ferrous sulfate tabs 325 mg p.o. Tuesday and Tuesday. 24. Ascorbic acid 500 mg p.o. Tuesday, Tuesday, Tuesday. 25. Acetaminophen 1000 mg p.o. b.i.d. as needed. 26. Nystatin suspension oral 100,000 units per mL, 5 mL swish and spit daily. 27. Gabapentin 300 mg by mouth at noon and in the evening. 28. Dextromethorphan 10 mL by mouth 3 times a day. 29. PEG 400/hypromellose glycerin 2 drops both eyes every 3 hours as needed. 30. Nicotine patch 14 mg 24 hours transdermal daily. 31. Hydrocodone and acetaminophen 1 tablet p.o. t.i.d. p.r.n. 32. Ergocalciferol caplets 50,000 units p.o. monthly. 33. Methyl salicylate/menthol 1 patch transderm q.8 hours as needed. ALLERGIES: ACETAMINOPHEN, PAXIL, WELLBUTRIN, CARBAMAZEPINE, ZYRTEC, CLINDAMYCIN , DEPAKOTE, FLUTICASONE, ADVAIR DISKUS, IODINE, LATEX, LEVOTHYROXINE, LIDOCAINE , ZYPREXA, DILANTIN, PREDNISONE, SULFA, TETRACYCLINES, TRIAMCINOLONE, AZMACORT, IV DYE. FAMILY HISTORY: The patient reports father had Parkinson's, at approximately 88 years of age. Mother had dementia and in her 60s. Sister had COPD and at 82. Brother at 75 of complications of COPD. Brother in his 70s, unknown cause of . SOCIAL HISTORY: The patient continues to smoke. She smokes approximately 2 hand- rolled cigarettes daily. Denies alcohol use. Denies illicit drug use. Reports that she lives alone and her surrogate decision maker is her daughter, Nanci Perez. The patient is a full code. REVIEW OF SYSTEMS: The patient denies any recent fevers, abnormal bleeding, nausea, vomiting, unexplained weight loss. The patient denies any ear discharge , eye discharge, changes in vision, changes in hearing. Denies any difficulty swallowing. Denies sore throat. The patient does report severe shortness of breath today as well as chest pain. The patient denies productive cough. The patient reports that she has to sit up straight in order to breathe comfortably , although she does report that her breathing effort has decreased greatly since arrival to the hospital. GI/Abdomen: The patient reports that she has chronic abdominal pain and her PCP is aware. States there are no changes. Denies any blood in her stool. Denies any nausea, vomiting. : The patient denies any changes in her urinary habits. Denies any hematuria. Reports occasional difficulty starting stream. The patient denies any numbness or tingling in extremities. The patient denies any inability to ambulate. The patient also denies any recent seizures. The patient denies any skin ulcerations , lacerations, pruritus, or rashes. Fourteen systems reviewed. All others negative. PHYSICAL EXAMINATION GENERAL: At this time, Ms. Walker is an 84-year-old female patient, who is sitting up in bed with nasal cannula on, does not appear to be in any distress. The patient does appear well nourished and well developed, and she is alert and oriented x3. VITAL SIGNS: Blood pressure 135/65, heart rate 75, temperature is 98.4, respiratory rate is 20, oxygen saturation 97% on 3 L nasal cannula. HEENT: Head atraumatic, normocephalic. Eyes: EOMs are intact. Sclerae are anicteric, not pale. Throat: Oral mucosa is dry in appearance. There is no oropharyngeal erythema. The tongue does have a brown coating. The patient reports that it is normal for her. NECK: Neck is supple. LUNGS: Lungs have wheezes throughout, rhonchi throughout. HEART: Sounds S1 and S2; however, the rate is irregular. No murmurs, rubs, or gallops auscultated. ABDOMEN: Soft, round. Tender in the left upper quadrant to gentle palpation. Bowel sounds are present x4 quadrants. EXTREMITIES: Pulses are +2 throughout. No peripheral edema noted. She is able to move all 4 extremities with 5/5 strength. NEUROLOGIC: The patient is awake, alert, and oriented x3. Speech is clear. Thought process is intact. There are no gross focal deficits. SKIN: Intact. DIAGNOSTIC STUDIES/LAB DATA: White blood cell 16.7, RBC 4.08, hemoglobin 12.6 , hematocrit 38, platelets 310. Sodium 139, potassium 4.1, chloride 103, carbon dioxide 28, BUN 21, creatinine 0.87, glucose 111, lactic acid 1.8, calcium 9.4. AST 16, ALT 10, alkaline phosphatase 162. Troponin 0.02 on initial , repeat 0.03. Influenza A negative. Influenza B negative. Chest x-ray performed, impression: There is no active cardiopulmonary disease present. EKG shows sinus rhythm, rate of 92, which is similar to previous read on 02/04/ 20. ASSESSMENT AND PLAN: Ms. Walker is an 84-year-old female patient coming to the ED today with complaints of shortness of breath and chest pain. On evaluation in the ER, the patient was found to be in severe shortness of breath, respiratory distress. The patient will be admitted under inpatient status for: 1. Acute on chronic hypoxic respiratory failure, likely related to chronic obstructive pulmonary disease. The patient will be monitored on telemetry. She will also be monitored with an SpO2. She will maintain oxygen 3 L nasal cannula to maintain SpO2 over 92%. The patient will be receiving DuoNeb every 6 hours as needed for shortness of breath, wheezing. The patient will also receive prednisone 60 mg by mouth every day. The patient does have history of congestive heart failure; however, this does not appear to be heart failure situation. There is no edema in the lower extremities, though we will likely obtain a BNP to verify it is not elevated. Chest x-ray does not reveal any evidence of fluid collection in the lungs. The patient's white blood cell count is elevated. It looks like CHF. It is likely not pneumonia as the chest x-ray does not show any sign of pneumonia or consolidation in any lung louie. The patient is not tachycardic, is normotensive and does not have a temperature , no productive cough and it is likely the patient does not have pneumonia. 2. Hypovolemia. The patient does appear to be slightly dry. Mucous membranes are quite dry. This will be managed by slow conservative normal saline infusion 500 cc and 100 cc an hour and monitor for any signs of congestive heart failure. 3. Aortic stenosis. Transthoracic echocardiogram performed on 08/01/18 showed left ventricle: Cavity size normal. Wall thickness normal. Systolic function is normal. Estimated ejection fraction is 55% to 60%. Wall motion is normal. No regional wall motion abnormalities. Right ventricle: Systolic function is normal. Systolic pressure is moderately to severely increased. Mitral valve: There is moderate regurgitation. Aortic valve: Valve mobility is restricted. The findings are consistent with ypppfsji-qu-hwjszi stenosis. The mean systolic gradient is 20 mmHg. The valve area by peak velocity method is 0.7 cm2 , the TI is 0.23. Tricuspid valve: There is pndrhsjr-mb-actlmu regurgitation. Pericardium/extracardiac: There is no significant pericardial effusion. Compared to study of 09/08/17, the left ventricular function and mitral regurgitation are the same, the aortic stenosis is worse. As stated, we will continue to monitor on telemetry. 4. Coronary artery disease. Continue with telemetry monitoring. Continue metoprolol and aspirin as ordered. 5. Hypertension. Continue metoprolol and amlodipine as ordered and monitor blood pressures every shift. 6. Hyperlipidemia. The patient will continue taking atorvastatin 80 mg daily. 7. Migraines. The patient will continue Fioricet. 8. Seizures. The patient will continue to take gabapentin as ordered at home. 9. Chronic pain. The patient will continue her regular hydrocodone dosage as well as gabapentin and Celebrex. 10. Anxiety. The patient will continue to take mirtazapine as ordered at home. 11. Gastroesophageal reflux disease. The patient will continue to take omeprazole 40 mg p.o. as ordered. 12. Hypothyroidism. The patient will continue to take levothyroxine 25 mcg by mouth daily. 13. Irritable bowel syndrome. The patient will continue on medications as prescribed, Colace and Imodium. 14. History of deep vein thrombosis. The patient is not anticoagulated. We will continue DVT prophylaxis in the hospital. 15. DVT prophylaxis: Heparin 5000 units every 8 hours. 16. Code status: The patient requests to be full code. 17. Fluids, electrolytes, and nutrition: The patient can resume cardiac healthy diet with restricted caffeine. TIME SPENT: Time spent on admission was 60 minutes, greater than half the time was spent [id number] with the patient obtaining my history and physical, the other half the time going over the plan of care with the patient and implementing plan of care. I did discuss plan of care with my attending, Dr. Gutierrez; she is in agreement. JOSEFINA SAUCEDA, AFSANEH [id number]/[facility] [place] #: [id number] SINDI
[2019-05-07] MEDS: Artificial Tears* 15 ML BTL BOTH EYES PRN (21:35)
[2019-05-07] MEDS ORDERED: Heparin VIAL(*) 5000 UNITS/ML VIAL (FIVE THOUSAND) SUBCUT SCH (22:00)
[2019-05-08 00:40] LABS: Influenza A Molecular Negative (Negative); Influenza B Molecular Negative (Negative)
[2019-05-08 05:06] LABS: ABS Lymphocytes 1.4 10^3/ul (1.0-4.8); ABS Monocytes 0.3 10^3/ul (0-0.8); ABS Neutrophils 6.3 10^3/ul (1.5-7.7); Hematocrit 33 % (35-47); Hemoglobin 11.2 g/dL (12.0-16.0); Mean Corpuscular HGB Conc 34 g/dL (31-36); Mean Corpuscular Hemoglobin 32 pg (27-31); Mean Corpuscular Volume 92 fL (80-97); Mean Platelet Volume 8.3 fL (7.4-10.4); Nucleated Red Blood Cells % 0.1; Platelet Count 269 10^3/uL (150-450); Red Blood Count 3.57 10^6 /uL (3.70-4.87); Red Cell Distribution Width 16 % (10-15)
[2019-05-08 05:20] LABS: Calcium 8.8 mg/dL (8.6-10.3)
[2019-05-08 05:22] LABS: Potassium 5.1 mmol/L (3.5-5.0)
[2019-05-08 05:26] LABS: BUN/Creatinine Ratio 26.9 (8-20); EGFR African American 84.9 (>60); EGFR Non-African American 70.2 (>60)
[2019-05-08] MEDS: Levothyroxine TAB* 25 MCG TAB PO SCH (05:53)
[2019-05-08] MEDS ORDERED: Fluticasone NASAL SPRAY 50MCG* 16 gm SPRAY BTL BOTH NARES SCH (09:00)
[2019-05-08] MEDS ORDERED: cefTRIAXone(*) 1 GM in NS 0.9% 50 ML* 50 ML IVPB SCH (09:00)
[2019-05-08] MEDS: SPIRIVA Respimat* (tiotropium) 2.5 mcg/inh Inhaler INH SCH (09:30)
[2019-05-08] MEDS: Butalb/Acetamin/Caff TAB* 1 TAB PO PRN ×3 (10:14→20:23)
[2019-05-08] MEDS: Azithromycin TAB* 250 MG PO SCH (10:15)
[2019-05-08] MEDS: Gabapentin CAP(*) 300 MG PO SCH ×5 (10:15→20:05)
[2019-05-08] MEDS: Metoprolol Tartrate TAB* 25 MG PO SCH ×2 (10:15→20:00)
[2019-05-08] MEDS: Aspirin EC TAB* 81 MG TAB.EC PO SCH (10:15)
[2019-05-08] MEDS: Folic Acid TAB* 1 MG PO SCH (10:15)
[2019-05-08] MEDS: Nicotine PATCH 14 MG/24 HR* PATCH TRANSDERM SCH (10:16)
[2019-05-08] MEDS: Cyanocobalamin TAB* 500 MCG PO SCH (10:16)
[2019-05-08] MEDS: Heparin VIAL(*) 5000 UNITS/ML VIAL (FIVE THOUSAND) SUBCUT SCH ×2 (10:16→20:06)
[2019-05-08] MEDS: amLODIPine TAB* 5 MG PO SCH (10:16)
[2019-05-08] MEDS: HYDROcodone/ACETAMIN 5-325 MG* 1 TAB PO PRN ×3 (11:05→20:04)
--- NOTE | 2019-05-08 11:54 | PN ---
Subjective Date of Service: 05/08/19 Interval History: Patient tells me she was feeling short of breath when walking to the bathroom this morning, which is new to her within the last month. She feels her breathing is comfortable at rest at time of evaluation, though she was evaluated shortly after receiving duoneb. She denies fever/chills, abd pain, chest pain, fever/chills. She tells me she would not want to go back to a SNF for rehab at this time due to bad experiences in the past at [facility] and [facility]. Patient tells me that one month ago she had insulation applied to the underside of her trailer home, and she feels like this is when she started to feel like her progressive shortness of breath started. Objective Active Medications: Acetaminophen/Butalbital/Caffeine (Fioricet Tab*) 1 tab PO TID PRN PRN Reason: HEADACHE Last Admin: 05/08/19 10:14 Dose: 1 tab Hydrocodone Bitart/Acetaminophen ([place] 5-325 Tab*) 1 tab PO TID PRN PRN Reason: PAIN - MODERATE Last Admin: 05/08/19 11:05 Dose: 1 tab Albuterol/Ipratropium (Duoneb (Albuterol 2.5 Mg/Ipratropium 0.5 Mg)) 1 neb INH Q6H PRN PRN Reason: SOB/WHEEZING Last Admin: 05/08/19 11:06 Dose: 1 neb Amlodipine Besylate (Norvasc Tab*) 10 mg PO DAILY [facility] Last Admin: 05/08/19 10:16 Dose: 10 mg Aspirin (Aspirin Ec Tab*) 81 mg PO DAILY [facility] Last Admin: 05/08/19 10:15 Dose: 81 mg Atorvastatin Calcium (Lipitor*) 80 mg PO BEDTIME [facility] Last Admin: 05/07/19 19:52 Dose: 80 mg Azithromycin (Zithromax Tab*) 500 mg PO DAILY [facility] Last Admin: 05/08/19 10:15 Dose: 500 mg Cyanocobalamin (Vitamin B12 Tab*) 500 mcg PO DAILY [facility] Last Admin: 05/08/19 10:16 Dose: 500 mcg Docusate Sodium (Colace Cap*) 100 mg PO QPM PRN PRN Reason: CONSTIPATION Last Admin: 05/07/19 19:58 Dose: 100 mg Ferrous Sulfate (Ferrous Sulfate Tab*) 325 mg PO MoFr@0900 [facility] Folic Acid (Folvite Tab*) 1 mg PO DAILY [facility] Last Admin: 05/08/19 10:15 Dose: 1 mg Gabapentin (Neurontin Cap(*)) 300 mg PO BID@1200,1800 [facility] Last Admin: 05/07/19 17:59 Dose: 300 mg Gabapentin (Neurontin Cap(*)) 600 mg PO BID [facility] Last Admin: 05/08/19 10:18 Dose: 600 mg Heparin Sodium (Porcine) (Heparin Vial(*)) 5,000 units SUBCUT Q12HR [facility] Last Admin: 05/08/19 10:16 Dose: 5,000 units Ceftriaxone Sodium 1 gm/ (Sodium Chloride) 50 mls @ 100 mls/hr IVPB Q24H [facility] Last Admin: 05/08/19 10:17 Dose: 100 mls/hr Levothyroxine Sodium (Synthroid Tab*) 25 mcg PO DAILY@0600 [facility] Last Admin: 05/08/19 05:53 Dose: 25 mcg Metoprolol Tartrate (Lopressor Tab*) 25 mg PO BID [facility] Last Admin: 05/08/19 10:15 Dose: 25 mg Mirtazapine (Remeron Tab*) 7.5 mg PO BEDTIME [facility] Last Admin: 05/07/19 19:55 Dose: 7.5 mg Nicotine (Nicotine Patch 14 Mg/24 Hr*) 1 patch TRANSDERM DAILY [facility] Last Admin: 05/08/19 10:16 Dose: 1 patch Pharmacy Profile Note (Nicotine Patch Removal Note*) 1 note PATCH OFF 2100 [facility] Last Admin: 05/07/19 19:56 Dose: Not Given Polyvinyl Alcohol (Polyvinyl Alcohol 1.4% Opth*) 2 drop BOTH EYES Q3H PRN PRN Reason: DRY EYE Last Admin: 05/07/19 21:35 Dose: 1 applic Prednisone (Deltasone 20 Mg Tab) 60 mg PO DAILY [facility] Last Admin: 05/08/19 10:15 Dose: 60 mg Tiotropium [place] (Spiriva Respimat 2.5 Mcg) 2 puff INH DAILY [facility] Last Admin: 05/08/19 09:30 Dose: 2 puff Vital Signs - 8 hr 05/08/19 05/08/19 05/08/19 07:32 08:00 09:44 Temperature 97.8 F Pulse Rate 76 72 Respiratory 18 20 15 Rate Blood Pressure 140/56 (mmHg) O2 Sat by Pulse 99 91 Oximetry 05/08/19 05/08/19 05/08/19 10:14 10:18 11:05 Temperature Pulse Rate Respiratory 18 18 18 Rate Blood Pressure (mmHg) O2 Sat by Pulse Oximetry 05/08/19 11:10 Temperature 97.3 F Pulse Rate 75 Respiratory 18 Rate Blood Pressure 152/47 (mmHg) O2 Sat by Pulse 98 Oximetry Oxygen Devices in Use Now: Nasal Cannula Appearance: thin, elderly white female, laying upright in bed, appearing comfortable and in NAD Eyes: No Scleral Icterus, - - PERRL Ears/Nose/Mouth/Throat: Mucous Membranes Moist Neck: Trachea Midline Respiratory: Symmetrical Chest Expansion and Respiratory Effort, - - faint end- expiratory wheeze in left upper lobe Cardiovascular: NL Sounds; No Murmurs; No JVD, RRR Abdominal: - - abd soft, nontender, nondistended Extremities: No Edema, No Clubbing, Cyanosis Skin: No Rash or Ulcers Neurological: Alert and Oriented x 3 Result Diagrams: 05/08/19 04:57 05/08/19 04:57 Assess/Plan/Problems-Billing Assessment: 84 yo white female with PMHx COPD on 2L oxygen at home, CAD, HTN, hx DVT, , seizure disorder, GERD, Samantha's, HLD, and anxiety presents with worsening shortness of breath despite finishing outpatient steroids. - Patient Problems (1) Acute and chronic respiratory failure Current Visit: Yes Status: Acute Code(s): J96.20 - ACUTE AND CHR RESP FAILURE, UNSP W HYPOXIA OR HYPERCAPNIA SNOMED Code(s): 65408996 Comment: -patient has COPD with chronic respiratory failure at baseline, typically requiring 2L oxygen -she presented with increased oxygen needs, but has returned back to baseline O2 requirements today with rest -still significantly dyspneic with exertion; RN Betty tells me patient had diffuse wheezing prior to nebulizer (which resolved by my evaluation) -continue 60mg prednisone, scheduled duonebs -leukocytosis at admission likely due to recently taking 5d burst of 20mg prednisone outpatient; I have lower suspicion for infection at this time given no clinical presentation. I question if this exacerbation of her COPD is related to environmental component of new insulation added to her trailer home. For this reason I will discontinue ceftriaxone at this time but continue azithromycin for the anti-inflammatory benefit -continue home spiriva -CXR with some evidence of what looks like vascular congestion on left upper- mid lung field. BNP was only minimally elevated and I have low suspicion for any contributing decompensated HF. Will repeat CXR tomorrow for comparison (2) Anxiety Current Visit: No Status: Acute Code(s): F41.9 - ANXIETY DISORDER, UNSPECIFIED SNOMED Code(s): 26561943 Comment: - As per PCP, patient has confusion with benzos - Patient requests medication for anxiety, will start buspar (3) Aortic stenosis Current Visit: No Status: Acute Code(s): I35.0 - NONRHEUMATIC AORTIC (VALVE ) STENOSIS SNOMED Code(s): 87852829 Comment: -moderate to severe according to Echo in July 2018 (4) CAD (coronary artery disease) Current Visit: No Status: Acute Code(s): I25.10 - ATHSCL HEART DISEASE OF [place] CORONARY ARTERY W/O ANG PCTRS SNOMED Code(s): 42920513 Comment: -continue metoprolol, statin, ASA (5) HTN (hypertension) Current Visit: No Status: Acute Code(s): I10 - ESSENTIAL (PRIMARY) HYPERTENSION SNOMED Code(s): 79833530 Comment: -normotensive -continue amlodipine and metoprolol (6) Tobacco abuse Current Visit: No Status: Acute Code(s): Z72.0 - TOBACCO USE SNOMED Code(s ): 907469441 Comment: -she continues to smoke daily, approx 4 cigarettes per day -we thoroughly discussed smoking cessation -nicotine patch (7) Elevated troponin Current Visit: No Status: Acute Code(s): R79.89 - OTHER SPECIFIED ABNORMAL FINDINGS OF BLOOD CHEMISTRY SNOMED Code(s): 482580898 Comment: - minimally elevated to 0.03 - EKG without ischemic changes - Suspect ischemic demand in the setting of acute hypoxia (8) Hyperkalemia Current Visit: Yes Status: Acute Code(s): E87.5 - HYPERKALEMIA SNOMED Code (s): 93830167 Comment: -mildly elevated to 5.1 -no intervention at this time -will monitor (9) Hypothyroidism Current Visit: Yes Status: Acute Code(s): E03.9 - HYPOTHYROIDISM, UNSPECIFIED SNOMED Code(s): 79478327 Comment: -continue levothyroxine (10) DVT prophylaxis Current Visit: No Status: Acute Code(s): Z29.9 - ENCOUNTER FOR PROPHYLACTIC MEASURES, UNSPECIFIED SNOMED Code(s): 401298791 Comment: - SQ heparin (11) Full code status Current Visit: No Status: Acute Code(s): Z78.9 - OTHER SPECIFIED HEALTH STATUS SNOMED Code(s): 137679167 Status and Disposition: inpatient for further medical mgmt
[2019-05-08] MEDS: Artificial Tears* 15 ML BTL BOTH EYES PRN (17:16)
[2019-05-08] MEDS ORDERED: Benzonatate CAP* 100 MG PO PRN (19:12)
[2019-05-08] MEDS ORDERED: Albuterol/Ipratropium NEB.SOL* Albuterol 2.5 MG/Ipratropium 0.5 MG 3 ML ONE (19:34)
[2019-05-08] MEDS: Albuterol/Ipratropium NEB.SOL* Albuterol 2.5 MG/Ipratropium 0.5 MG 3 ML INH SCH (19:38)
[2019-05-08] MEDS: busPIRone TAB* 5 MG PO SCH (19:59)
[2019-05-08] MEDS: Atorvastatin* 80 MG TAB PO SCH (19:59)
[2019-05-08] MEDS: Mirtazapine TAB* 15 MG PO SCH (20:01)
[2019-05-08] MEDS: Calcium Carbonate CHEW TAB* 500 MG (TUMS) PO PRN (20:02)
[2019-05-08] MEDS: guaiFENesin 100 mg/5 ml LIQ unit dose cup PO PRN (20:03)
[2019-05-08] MEDS: Nicotine Patch Removal NOTE PATCH OFF SCH (20:07)
[2019-05-08] MEDS ORDERED: guaiFENesin ER TAB 600 MG PO SCH (21:00)
[2019-05-09] MEDS: Albuterol/Ipratropium NEB.SOL* Albuterol 2.5 MG/Ipratropium 0.5 MG 3 ML INH SCH ×3 (01:15→13:19)
[2019-05-09] MEDS: Levothyroxine TAB* 25 MCG TAB PO SCH (05:07)
[2019-05-09] MEDS: SPIRIVA Respimat* (tiotropium) 2.5 mcg/inh Inhaler INH SCH (07:26)
[2019-05-09] MEDS: Folic Acid TAB* 1 MG PO SCH (08:20)
[2019-05-09] MEDS: Docusate CAP* 100 MG PO PRN (08:20)
[2019-05-09] MEDS: Aspirin EC TAB* 81 MG TAB.EC PO SCH (08:21)
[2019-05-09] MEDS: amLODIPine TAB* 5 MG PO SCH (08:21)
[2019-05-09] MEDS: busPIRone TAB* 5 MG PO SCH ×2 (08:22→13:23)
[2019-05-09] MEDS: Metoprolol Tartrate TAB* 25 MG PO SCH (08:22)
[2019-05-09] MEDS: Azithromycin TAB* 250 MG PO SCH (08:22)
[2019-05-09] MEDS: Cyanocobalamin TAB* 500 MCG PO SCH (08:22)
[2019-05-09] MEDS: Heparin VIAL(*) 5000 UNITS/ML VIAL (FIVE THOUSAND) SUBCUT SCH (08:22)
[2019-05-09] MEDS: Gabapentin CAP(*) 300 MG PO SCH ×2 (08:23→13:23)
[2019-05-09] MEDS: HYDROcodone/ACETAMIN 5-325 MG* 1 TAB PO PRN ×2 (08:23→13:29)
[2019-05-09] MEDS: Nicotine PATCH 14 MG/24 HR* PATCH TRANSDERM SCH (08:23)
[2019-05-09] MEDS: Butalb/Acetamin/Caff TAB* 1 TAB PO PRN ×2 (08:23→13:28)
[2019-05-09] MEDS ORDERED: Ibuprofen TAB* 400 MG PO PRN (10:24)
[2019-05-09] MEDS: Calcium Carbonate CHEW TAB* 500 MG (TUMS) PO PRN (10:49)
[2019-05-09] MEDS: guaiFENesin 100 mg/5 ml LIQ unit dose cup PO PRN (10:49)
[2019-05-09 12:08] LABS: BUN/Creatinine Ratio 29.5 (8-20); Calcium 9.4 mg/dL (8.6-10.3); EGFR African American 67.6 (>60); EGFR Non-African American 55.9 (>60)
[2019-05-09 12:09] LABS: Potassium 5.2 mmol/L (3.5-5.0)
[2019-05-09] MEDS ORDERED: Linezolid 600 MG IVPREMIX(*) 600 MG/300 ML BAG IVPB ONE (15:00)
[2019-05-09 15:49] VITALS: BP 120/41
--- NOTE | 2019-05-09 22:43 | DS ---
CC: Dr. Burciaga * DISCHARGE SUMMARY: DATE OF ADMISSION: 05/07/19 DATE OF DISCHARGE: 05/09/19 ATTENDING PHYSICIAN WHILE IN THE HOSPITAL: Dr. Gutierrez * (dictated by JUDY Alexis). PRIMARY CARE PROVIDER: Dr. Burciaga. PRIMARY DIAGNOSES: 1. Acute on chronic respiratory failure with hypoxia related to chronic obstructive pulmonary disease exacerbation. 2. Urinary tract infection, cannot exclude pyelonephritis. SECONDARY DIAGNOSES: 1. Chronic obstructive pulmonary disease, on 2 L of oxygen at home. 2. Coronary artery disease. 3. Aortic stenosis. 4. Hyperlipidemia. 5. 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 6. Gastroesophageal reflux disease. 7. History of deep venous thrombosis, not on anticoagulation. 8. Arthritis. 9. Chronic pain. 10. Hypertension. 11. History of left breast cancer. 12. Irritable bowel syndrome. 13. Anxiety. 14. History of seizures. PERTINENT STUDIES WHILE IN THE HOSPITAL: Chest x-ray on 05/07/19, impression: No active cardiopulmonary disease. Repeat chest x-ray on 05/09/19, no acute cardiopulmonary disease per radiologist. By my read, it appears there is decreased vascular congestion from previous chest x-ray. CT abdomen and pelvis on 05/09/19 without IV contrast, impression: Atherosclerosis. Status post right nephrectomy. Multiple calcifications are noted of the left kidney which appear to be vascular. There is no appreciable left hydronephrosis. SIGNIFICANT STUDIES WHILE IN THE HOSPITAL: Potassium 5.2 on day of discharge. White blood cell count 16.7 on admission and 10.4 on 05/07/19. Urine culture positive for Enterococcus faecalis which is resistant to ciprofloxacin, gentamicin, levofloxacin, penicillin, quinupristin/dalfopristin, streptomycin and tetracycline. HISTORY OF PRESENT ILLNESS/HOSPITAL COURSE: Nai Walker is an 84-year-old white female with past medical history significant for COPD, on 2 L of oxygen at home ; coronary artery disease; anxiety; hypothyroidism; aortic stenosis; hyperlipidemia and hypertension, who presented to the emergency department due to shortness of breath and associated chest pain. The patient reports that she has been having progressive worsening shortness of breath for the last month, which she attributes to the start of her symptoms when insulation was sprayed under her trailer home. She was using her Symbicort up to 16 times a day because she felt this was her rescue inhaler and this was not helping her, so she came to the emergency department. Initially, she was requiring 4 L of oxygen to maintain oxygen saturations in the 90s and ultimately she was titrated down to her normal oxygen of 2 L and was able to maintain good oxygen saturations with ambulation on this as well. She was admitted to the hospital and treated with azithromycin as well as initially IV steroids were later changed to prednisone to treat her COPD exacerbation. Of note, the patient did have an outpatient 5-day course of 20 mg prednisone, which the patient says initially helped her, but then later, she returned back to her feeling of prolonged shortness of breath. She was given 60 mg burst of prednisone while she was in the hospital and she continued to improve. She was initially diffusely wheezing and her chest x-ray had no evidence of consolidation. She initially did have a leukocytosis; however, I can attribute this to her recent glucocorticoid use and she was afebrile during her hospital stay. For that reason, I have low suspicion that any pneumonia was contributing to her COPD exacerbation. By day of discharge, she was no longer dyspneic at rest nor with minimal exertion and her lung sounds were just with minimal scant rhonchi and without wheezing. She did receive scheduled DuoNebs during her hospitalization which did have good effect. Initially, the patient was not complaining of any urinary symptoms; however, urine was collected in the emergency department and ultimately, a urine culture demonstrated Enterococcus faecalis which was resistant to multiple antibiotics as reported above and on the day of discharge, the patient did mention to me that she was having left-sided flank pain and did have some CVA tenderness on the left side and for that reason, I had concern for pyelonephritis. At this point, a CT abdomen and pelvis did not show any concern for pyelonephritis or hydronephrosis; however, pyelonephritis cannot be ruled out as contrast could not be used due to the patient's anaphylaxis to iodine. Due to my lingering suspicion for pyelonephritis, I felt that it would be inappropriate to give this patient nitrofurantoin and I did discuss this case with Edelmira Velasco NP, Infectious Disease team and she agreed with my selection of linezolid. Of note, the patient was feeling anxious during her hospitalization and was requesting Xanax. We did discuss that Xanax was not a great option for her given her age and risk of delirium and so we elected to try BuSpar and she told me that she had tried that in the past and was not opposed to this. Of note, the patient had a very minimally elevated troponin at 0.03 during her hospitalization and she had no ischemic changes on her EKG and I suspect this is likely ischemic demand in the setting of hypoxia. PHYSICAL EXAM ON DAY OF DISCHARGE: General: Thin, elderly white female, sitting in chair, appearing comfortable, in no acute distress. Eyes: PERRLA. Sclerae anicteric. ENT: Mucous membranes moist. Lungs: Faint rhonchi in the bilateral upper lung louie and otherwise clear to auscultation and without wheezing. Cardio: Regular rate and rhythm without murmurs, rubs or gallops. Abdomen: Soft, nontender, nondistended. Left-sided CVA tenderness. Extremities: No clubbing, cyanosis or edema. Neuro: The patient is alert and oriented x3. DISCHARGE PLAN: Due to the patient starting linezolid, I told her to not yet start her new prescription of BuSpar while she is taking this course of linezolid and to additionally hold her mirtazapine while she is taking linezolid. She may start these medications after the prescription is complete. This is to avoid risk of serotonin syndrome. She was advised to follow up with her primary care provider within 1 week and/or sooner if her feeling of flank pain is worsening. She has not seen process project engineer in over a year and I advised her to follow up with Dr. Vaughn within a month. She and I thoroughly discussed what her various inhalers were for to ensure that she is using her inhalers appropriately, especially the difference of her rescue inhaler versus daily maintenance. I do not know if this patient is benefiting from her Symbicort and it appears that she is taking antifungals which would suggest to me that she probably has poor timing of this inhaler and perhaps Dr. Vaughn can help manage these medications to avoid this. The patient is advised to return to the emergency department if she is experiencing hematuria, worsening flank pain, lower abdominal pain, low back pain, fevers, chills, tremors, chest pain and difficulty breathing is not improved by her rescue inhaler or albuterol nebulizer. The patient did have minimally elevated potassium and I believe that at the time of followup with Dr. Burciaga, repeat BMP should be conducted. Additionally, the patient and I discussed that she needs to entirely abstain from tobacco use as this is worsening her COPD and is likely contributing to her presentation during this hospitalization. MEDICATIONS: New medications: 1. Prednisone 60 mg p.o. daily x3 days. 2. Azithromycin 500 mg p.o. daily x1 day. 3. Linezolid 600 mg p.o. b.i.d. x10 days. 4. Tessalon Perles 100 mg p.o. b.i.d. p.r.n. cough. 5. BuSpar 5 mg p.o. t.i.d. (this was advised to be held while taking new linezolid). Continued home medications: 1. Albuterol inhaler 2 puffs inhaled q.4 hours p.r.n. shortness of breath/ wheezing. 2. Ergocalciferol 50,000 units p.o. monthly. 3. Fluticasone 1 spray both nares daily. 4. Aspirin 81 mg p.o. daily. 5. Zofran 8 mg p.o. daily p.r.n. nausea and vomiting. 6. Amlodipine 10 mg p.o. daily. 7. [place] 5/325 mg 1 tab p.o. t.i.d. p.r.n. pain. 8. Ipratropium/albuterol nebulizer 1 nebulized solution inhaled b.i.d. 9. Synthroid 25 mcg p.o. daily. 10. Metoprolol tartrate 25 mg p.o. b.i.d. 11. Colace 100 mg p.o. q.p.m. p.r.n. constipation. 12. Incruse Ellipta 1 puff inhaled at bedtime. 13. Hypromellose tears 1 application both eyes daily p.r.n. dry eye. 14. Nicotine patch 14 mg transdermally daily. 15. Gabapentin 300 mg p.o. at noon and q.p.m. 16. Gabapentin 600 mg p.o. q.a.m. and at bedtime. 17. Propylene glycol 1 drop both eyes t.i.d./4 times a day p.r.n. dry eye. 18. Mucinex Fast-Max 1 tab p.o. q.12 hours. 19. Vitamin C 500 mg p.o. Tuesday, Tuesday, Tuesday. 20. Vitamin B12 500 mcg p.o. daily. 21. Folic acid 1 mg p.o. daily. 22. Salonpas patch 1 patch transdermally q.8 hours p.r.n. pain. 23. Lipitor 80 mg p.o. daily. 24. Omeprazole 40 mg p.o. daily. 25. Remeron 7.5 mg p.o. at bedtime (this was advised to be held while taking linezolid). 26. Ferrous sulfate 325 mg p.o. Tuesday and Tuesday. 27. Cetirizine 10 mg p.o. at bedtime. 28. Symbicort 160/4.5 one puff inhaled b.i.d. CONDITION ON DISCHARGE: Stable. DISPOSITION: Home. TIME SPENT: Approximately 50 minutes was spent on this discharge, approximately half of this time was spent at bedside evaluating the patient and discussing the plan of care. JUDY ALEXIS [id number]/CPS #: [id number] [facility]
[2019-05-11] MEDS ORDERED: Ferrous Sulfate TAB* 325 MG PO SCH (09:00)
== END 2019-05-09 16:48 | disposition home health service (06) | DRG 189 ==
LOC: ED 10:39 → MEDTELE 15:19
PROVIDERS: ADMIT Internal Medicine; ATTEND Internal Medicine
DX: J96.21 Acute and chronic respiratory failure with hypoxia (principal); D58.9 Hereditary hemolytic anemia, unspecified; I24.8 Other forms of acute ischemic heart disease; N12 Tubulo-interstitial nephritis, not specified as acute or chronic; Z16.24 Resistance to multiple antibiotics; J43.9 Emphysema, unspecified; I25.10 Atherosclerotic heart disease of native coronary artery without angina pectoris; E78.00 Pure hypercholesterolemia, unspecified; K21.9 Gastro-esophageal reflux disease without esophagitis; K58.9 Irritable bowel syndrome, unspecified; M19.90 Unspecified osteoarthritis, unspecified site; M81.0 Age-related osteoporosis without current pathological fracture; F17.210 Nicotine dependence, cigarettes, uncomplicated; I35.0 Nonrheumatic aortic (valve) stenosis; E78.5 Hyperlipidemia, unspecified; E03.9 Hypothyroidism, unspecified; I11.0 Hypertensive heart disease with heart failure; I50.9 Heart failure, unspecified; E86.1 Hypovolemia; G43.909 Migraine, unspecified, not intractable, without status migrainosus; G40.909 Epilepsy, unspecified, not intractable, without status epilepticus; B95.2 Enterococcus as the cause of diseases classified elsewhere; D72.829 Elevated white blood cell count, unspecified; E87.5 Hyperkalemia; G89.29 Other chronic pain; E06.3 Autoimmune thyroiditis; F41.9 Anxiety disorder, unspecified; Z85.3 Personal history of malignant neoplasm of breast; Z88.8 Allergy status to other drugs, medicaments and biological substances; Z88.2 Allergy status to sulfonamides; Z88.1 Allergy status to other antibiotic agents; Z91.041 Radiographic dye allergy status; Z91.040 Latex allergy status; Z92.21 Personal history of antineoplastic chemotherapy; Z90.12 Acquired absence of left breast and nipple; Z90.5 Acquired absence of kidney; Z95.5 Presence of coronary angioplasty implant and graft; I25.2 Old myocardial infarction; Z86.718 Personal history of other venous thrombosis and embolism; Z99.81 Dependence on supplemental oxygen; Z79.82 Long term (current) use of aspirin; Z79.51 Long term (current) use of inhaled steroids; Z79.890 Hormone replacement therapy; Z79.899 Other long term (current) drug therapy
CPT/HCPCS: 36415; 71045; 71046; 74176; 80048; 80053; 81003; 81015; 82565; 83605; 83880; 84484; 84520; 85025; 85610; 85730; 86140; 87077; 87086; 87186; 93005; 94640; 96374; 96375; 99284; A9270-GY; J0696; J1644; J2020; J2060; J2930; J3535; J7512

== ENCOUNTER 2019-10-23 11:49 | Inpatient (IN) ==
[2019-10-23] MEDS ORDERED: Lorazepam PYXIS KEY PRN (11:52)
[2019-10-23] MEDS ORDERED: LORazepam 2 mg VIAL 1 ml IV PUSH ONE (11:52)
[2019-10-23] MEDS ORDERED: Albuterol/Ipratropium NEB.SOL (2.5/0.5 MG) 3 ML NEB.SOLN INH ONE ×4 (11:54→13:49)
[2019-10-23] MEDS ORDERED: Lorazepam PYXIS KEY ONE (12:02)
[2019-10-23 12:11] LABS: ABS Basophils 0.2 10^3/ul (0-0.2); ABS Eosinophils 0.6 10^3/ul (0-0.6); ABS Lymphocytes 4.3 10^3/ul (1.0-4.8); ABS Monocytes 1.4 10^3/ul (0-0.8); ABS Neutrophils 12.3 10^3/ul (1.5-7.7); Eosinophil % 3.1 %; Hematocrit 34 % (35-47); Hemoglobin 11.1 g/dL (12.0-16.0); Lymphocyte % 22.8 %; Mean Corpuscular HGB Conc 33 g/dL (31-36); Mean Corpuscular Hemoglobin 30 pg (27-31); Mean Corpuscular Volume 92 fL (80-97); Mean Platelet Volume 9.4 fL (7.4-10.4); Platelet Count 257 10^3/uL (150-450); Red Blood Count 3.68 10^6 /uL (3.70-4.87); Red Cell Distribution Width 14 % (10-15); White Blood Count 18.7 10^3/uL (3.5-10.8)
[2019-10-23] MEDS ORDERED: Albuterol/Ipratropium NEB.SOL (2.5/0.5 MG) 3 ML NEB.SOLN ONE (12:17)
[2019-10-23 12:35] LABS: ALT 11 U/L (7-52); AST 19 U/L (13-39); Albumin 3.9 g/dL (3.2-5.2); Albumin/Globulin Ratio 1.2 (1-3); Alkaline Phosphatase 167 U/L (34-104); Anion Gap 2 mmol/L (2-11); BUN/Creatinine Ratio 24.7 (8-20); Blood Urea Nitrogen 24 mg/dL (6-24); CO2 Carbon Dioxide 35 mmol/L (22-32); Calcium 9.2 mg/dL (8.6-10.3); Chloride 105 mmol/L (101-111); EGFR Non-African American 54.6 (>60); Globulin 3.3 g/dL (2-4); Glucose 213 mg/dL (70-100); Potassium 4.9 mmol/L (3.5-5.0); Sodium 142 mmol/L (135-145); Total Protein 7.2 g/dL (6.4-8.9)
[2019-10-23 12:40] LABS: Troponin I 0.03 ng/mL (<0.03)
[2019-10-23] MEDS ORDERED: Vancomycin 1,250 MG in NS 0.9% 250 ml 250 ML IVPB ONE (13:03)
[2019-10-23] MEDS ORDERED: Piperacillin/Tazobac ADVAN 3.375 GM in NS 0.9% 100 ml BAG 100 ML IVPB ONE (13:03)
[2019-10-23 13:33] LABS: T4, Total 6.43 mcg/dL (6.09-12.23)
[2019-10-23 13:37] LABS: TSH Ultra Thyroid Stim Horm 3.49 mcIU/mL (0.34-5.60)
[2019-10-23] MEDS ORDERED: methylPREDNISolone 125 mg 2 ML VIAL IV ONE ×2 (13:46→14:01)
[2019-10-23] MEDS ORDERED: Furosemide 20 mg/2 ml IV VIAL IV ONE (14:02)
[2019-10-23 14:19] LABS: Urine Appearance Cloudy; Urine Bilirubin Negative (Negative); Urine Blood Negative (Negative); Urine Color Yellow; Urine Glucose Negative (Negative); Urine Ketones Negative (Negative); Urine Nitrite Negative (Negative); Urine Protein 2+(100 mg/dL) (Negative); Urine Specific Gravity 1.015 (1.010-1.030); Urine Urobilinogen Negative (Negative)
[2019-10-23 14:23] LABS: Urine Bacteria Absent (Absent); Urine Red Blood Cell Trace(0-2/hpf) (Absent); Urine White Blood Cell Trace(0-5/hpf) (Absent)
[2019-10-23] MEDS ORDERED: Azithromycin 500 mg/250 mL NS IVPB ONE (15:00)
[2019-10-23] MEDS: Azithromycin 500 mg/250 ml NS 500 MG/250 ML BAG IVPB SCH (16:59)
[2019-10-23] MEDS: Enoxaparin 40 MG/0.4 ML SYR SUBCUT SCH (16:59)
[2019-10-23] MEDS ORDERED: Magnesium Sulfate 2 gm BAG 2 GM/50 ML BAG IVPB ONE (17:13)
[2019-10-23] MEDS: Albuterol/Ipratropium NEB.SOL (2.5/0.5 MG) 3 ML NEB.SOLN INH SCH ×2 (20:37→23:07)
[2019-10-23] MEDS: cefTRIAXone 1 gm/50 mL NS BAG 1 GM/50 ML BAG IVPB SCH (22:20)
[2019-10-23] MEDS: methylPREDNISolone SOD 40 mg/ml 1 ml VIAL IV SCH (22:31)
[2019-10-24] MEDS: Albuterol/Ipratropium NEB.SOL (2.5/0.5 MG) 3 ML NEB.SOLN INH SCH ×6 (03:20→23:46)
[2019-10-24] MEDS: methylPREDNISolone SOD 40 mg/ml 1 ml VIAL IV SCH ×3 (05:30→21:14)
[2019-10-24 06:28] LABS: ABS Lymphocytes 1.2 10^3/ul (1.0-4.8); ABS Monocytes 0.5 10^3/ul (0-0.8); ABS Neutrophils 10.6 10^3/ul (1.5-7.7); Hematocrit 29 % (35-47); Hemoglobin 9.9 g/dL (12.0-16.0); Lymphocyte % 9.8 %; Mean Corpuscular HGB Conc 34 g/dL (31-36); Mean Corpuscular Hemoglobin 32 pg (27-31); Mean Corpuscular Volume 92 fL (80-97); Nucleated Red Blood Cells % 0.1; Platelet Count 217 10^3/uL (150-450); Red Blood Count 3.14 10^6 /uL (3.70-4.87); Red Cell Distribution Width 14 % (10-15); White Blood Count 12.4 10^3/uL (3.5-10.8)
[2019-10-24 06:34] LABS: Albumin 3.5 g/dL (3.2-5.2); Calcium 8.9 mg/dL (8.6-10.3); Total Bilirubin 0.3 mg/dL (0.2-1.0)
[2019-10-24 06:39] LABS: Potassium 5.8 mmol/L (3.5-5.0)
[2019-10-24 06:40] LABS: Albumin/Globulin Ratio 1.2 (1-3); BUN/Creatinine Ratio 26.3 (8-20); EGFR African American 52.7 (>60); EGFR Non-African American 43.5 (>60); Total Protein 6.5 g/dL (6.4-8.9)
[2019-10-24] MEDS ORDERED: Sodium Polystyrene ORAL.SUSP 15 GM/60 ML BTL PO ONE (07:59)
[2019-10-24] MEDS ORDERED: Furosemide 20 mg/2 ml IV VIAL IV ONE (08:01)
[2019-10-24] MEDS ORDERED: Albuterol/Ipratropium NEB.SOL (2.5/0.5 MG) 3 ML NEB.SOLN INH SCH ×2 (10:00→13:00)
[2019-10-24] MEDS: Morphine 2 MG/ML SYRINGE IV PRN ×3 (13:04→22:33)
[2019-10-24] MEDS: Enoxaparin 40 MG/0.4 ML SYR SUBCUT SCH (14:39)
[2019-10-24 16:45] LABS: BUN/Creatinine Ratio 29.2 (8-20); Calcium 8.9 mg/dL (8.6-10.3); EGFR African American 55.4 (>60); EGFR Non-African American 45.8 (>60); Magnesium 2.2 mg/dL (1.9-2.7); Potassium 3.8 mmol/L (3.5-5.0)
[2019-10-24] MEDS: Azithromycin 500 mg/250 ml NS 500 MG/250 ML BAG IVPB SCH (17:36)
[2019-10-24] MEDS: cefTRIAXone 1 gm/50 mL NS BAG 1 GM/50 ML BAG IVPB SCH (19:18)
[2019-10-24] MEDS ORDERED: Diltiazem IV push/loading dose 5 MG/ML 5 ML vial (25 mg) IV SLOW PU ONE (22:49)
[2019-10-24] MEDS ORDERED: Diltiazem IV push/loading dose 5 MG/ML 5 ML vial (25 mg) ONE (22:50)
[2019-10-24] MEDS ORDERED: Magnesium Sulfate IV 1GM/100ML 1 GM/100 ML BAG IV ONE (23:03)
[2019-10-24] MEDS ORDERED: Morphine 2 MG/ML SYRINGE ONE (23:07)
[2019-10-24] MEDS ORDERED: Morphine 2 MG/ML SYRINGE IV ONE (23:10)
[2019-10-24] MEDS ORDERED: Metoprolol Tartrate 5 mg VIAL 5 ml VIAL (1 mg/ml) IV ONE (23:13)
[2019-10-25] MEDS ORDERED: Metoprolol Tartrate 5 mg VIAL 5 ml VIAL (1 mg/ml) IV ONE ×2 (01:04→06:10)
[2019-10-25] MEDS: Morphine 2 MG/ML SYRINGE IV PRN ×5 (03:46→19:30)
[2019-10-25] MEDS: methylPREDNISolone SOD 40 mg/ml 1 ml VIAL IV SCH ×2 (05:10→15:03)
[2019-10-25 05:23] LABS: ABS Monocytes 0.7 10^3/ul (0-0.8); ABS Neutrophils 11.7 10^3/ul (1.5-7.7); Hematocrit 28 % (35-47); Hemoglobin 9.7 g/dL (12.0-16.0); Lymphocyte % 7.2 %; Mean Corpuscular HGB Conc 34 g/dL (31-36); Mean Corpuscular Hemoglobin 31 pg (27-31); Mean Corpuscular Volume 90 fL (80-97); Mean Platelet Volume 9.5 fL (7.4-10.4); Nucleated Red Blood Cells % 0.1; Platelet Count 230 10^3/uL (150-450); Red Blood Count 3.16 10^6 /uL (3.70-4.87); Red Cell Distribution Width 14 % (10-15); White Blood Count 13.4 10^3/uL (3.5-10.8)
[2019-10-25 05:36] LABS: ALT 18 U/L (7-52); AST 42 U/L (13-39); Albumin 3.6 g/dL (3.2-5.2); Albumin/Globulin Ratio 1.2 (1-3); Alkaline Phosphatase 131 U/L (34-104); Anion Gap 6 mmol/L (2-11); Blood Urea Nitrogen 31 mg/dL (6-24); CO2 Carbon Dioxide 34 mmol/L (22-32); Chloride 102 mmol/L (101-111); EGFR African American 63.8 (>60); EGFR Non-African American 52.7 (>60); Globulin 2.9 g/dL (2-4); Glucose 158 mg/dL (70-100); Potassium 3.7 mmol/L (3.5-5.0); Sodium 142 mmol/L (135-145); Total Protein 6.5 g/dL (6.4-8.9)
[2019-10-25] MEDS: Albuterol/Ipratropium NEB.SOL (2.5/0.5 MG) 3 ML NEB.SOLN INH SCH ×3 (08:33→21:00)
[2019-10-25] MEDS ORDERED: Lorazepam PYXIS KEY ONE (10:50)
[2019-10-25] MEDS ORDERED: LORazepam 2 mg VIAL 1 ml ONE (10:51)
[2019-10-25 11:16] LABS: Troponin I 0.13 ng/mL (<0.03)
[2019-10-25] MEDS: Azithromycin 500 mg/250 ml NS 500 MG/250 ML BAG IVPB SCH (16:54)
[2019-10-25] MEDS: cefTRIAXone 1 gm/50 mL NS BAG 1 GM/50 ML BAG IVPB SCH (19:29)
[2019-10-26] MEDS: Albuterol/Ipratropium NEB.SOL (2.5/0.5 MG) 3 ML NEB.SOLN INH SCH ×2 (01:08→07:27)
[2019-10-26 04:44] LABS: Hematocrit 32 % (35-47); Hemoglobin 11.4 g/dL (12.0-16.0); Mean Corpuscular HGB Conc 35 g/dL (31-36); Mean Corpuscular Hemoglobin 32 pg (27-31); Mean Corpuscular Volume 89 fL (80-97); Platelet Count 265 10^3/uL (150-450); Red Blood Count 3.61 10^6 /uL (3.70-4.87); Red Cell Distribution Width 14 % (10-15); White Blood Count 15.3 10^3/uL (3.5-10.8)
[2019-10-26 04:49] LABS: Anion Gap 7 mmol/L (2-11); CO2 Carbon Dioxide 35 mmol/L (22-32); Calcium 9.4 mg/dL (8.6-10.3); Chloride 101 mmol/L (101-111); Potassium 3.9 mmol/L (3.5-5.0); Sodium 143 mmol/L (135-145)
[2019-10-26 04:55] LABS: ALT 24 U/L (7-52); AST 43 U/L (13-39); Albumin/Globulin Ratio 1.2 (1-3); Alkaline Phosphatase 135 U/L (34-104); BUN/Creatinine Ratio 33.7 (8-20); Blood Urea Nitrogen 33 mg/dL (6-24); EGFR African American 65.3 (>60); EGFR Non-African American 53.9 (>60); Globulin 3.3 g/dL (2-4); Glucose 125 mg/dL (70-100); Total Protein 7.3 g/dL (6.4-8.9)
[2019-10-26 05:16] LABS: ABS Basophils 0.1 10^3/ul (0-0.2); ABS Lymphocytes 2.8 10^3/ul (1.0-4.8); ABS Monocytes 1.7 10^3/ul (0-0.8); ABS Neutrophils 10.7 10^3/ul (1.5-7.7); Eosinophil % 0.1 %; Lymphocyte % 18.6 %; Nucleated Red Blood Cells % 0.1
[2019-10-26] MEDS: Morphine 2 MG/ML SYRINGE IV PRN ×4 (05:39→21:45)
[2019-10-26] MEDS ORDERED: Metoprolol Tartrate 5 mg VIAL 5 ml VIAL (1 mg/ml) ONE (07:33)
[2019-10-26] MEDS ORDERED: Metoprolol Tartrate 5 mg VIAL 5 ml VIAL (1 mg/ml) IV ONE (07:34)
[2019-10-26] MEDS ORDERED: methylPREDNISolone SOD 40 mg/ml 1 ml VIAL IV SCH (09:00)
[2019-10-26] MEDS ORDERED: Diltiazem IV push/loading dose 5 MG/ML 5 ML vial (25 mg) IV SLOW PU ONE (09:05)
[2019-10-26] MEDS ORDERED: Diltiazem IV push/loading dose 5 MG/ML 5 ML vial (25 mg) ONE (09:08)
[2019-10-26 09:16] LABS: Troponin I 0.07 ng/mL (<0.03)
[2019-10-26] MEDS: Azithromycin 500 mg/250 ml NS 500 MG/250 ML BAG IVPB SCH (17:49)
[2019-10-26] MEDS: cefTRIAXone 1 gm/50 mL NS BAG 1 GM/50 ML BAG IVPB SCH (21:11)
[2019-10-27] MEDS ORDERED: hydrALAZINE 20 mg/ml 1 ML Vial IV IV SLOW PU PRN (00:02)
[2019-10-27 05:46] LABS: ABS Lymphocytes 1.5 10^3/ul (1.0-4.8); ABS Monocytes 1.5 10^3/ul (0-0.8); ABS Neutrophils 9.6 10^3/ul (1.5-7.7); Eosinophil % 0.4 %; Hematocrit 31 % (35-47); Hemoglobin 10.4 g/dL (12.0-16.0); Lymphocyte % 11.7 %; Mean Corpuscular HGB Conc 34 g/dL (31-36); Mean Corpuscular Hemoglobin 30 pg (27-31); Mean Corpuscular Volume 90 fL (80-97); Mean Platelet Volume 9.1 fL (7.4-10.4); Nucleated Red Blood Cells % 0.1; Platelet Count 245 10^3/uL (150-450); Red Blood Count 3.42 10^6 /uL (3.70-4.87); Red Cell Distribution Width 14 % (10-15); White Blood Count 12.6 10^3/uL (3.5-10.8)
[2019-10-27 06:05] LABS: Albumin 3.5 g/dL (3.2-5.2); Albumin/Globulin Ratio 1.3 (1-3); BUN/Creatinine Ratio 36.9 (8-20); Calcium 9.2 mg/dL (8.6-10.3); EGFR Non-African American 64.4 (>60); Globulin 2.6 g/dL (2-4); Potassium 3.8 mmol/L (3.5-5.0); Total Bilirubin 0.3 mg/dL (0.2-1.0); Total Protein 6.1 g/dL (6.4-8.9)
[2019-10-27] MEDS: Morphine 2 MG/ML SYRINGE IV PRN ×2 (08:31→18:21)
[2019-10-27] MEDS: Nystatin SUSPENSION 100,000 UNITS/ML UDC PO SCH ×3 (13:05→21:38)
[2019-10-27] MEDS: cefTRIAXone 1 gm/50 mL NS BAG 1 GM/50 ML BAG IVPB SCH (21:33)
[2019-10-28 09:06] LABS: Hematocrit 30 % (35-47); Hemoglobin 10.2 g/dL (12.0-16.0); Mean Corpuscular HGB Conc 35 g/dL (31-36); Mean Corpuscular Hemoglobin 31 pg (27-31); Mean Corpuscular Volume 90 fL (80-97); Mean Platelet Volume 9.4 fL (7.4-10.4); Platelet Count 223 10^3/uL (150-450); Red Blood Count 3.31 10^6 /uL (3.70-4.87); Red Cell Distribution Width 14 % (10-15); White Blood Count 12.5 10^3/uL (3.5-10.8)
[2019-10-28 09:40] LABS: Calcium 8.9 mg/dL (8.6-10.3); Magnesium 2.3 mg/dL (1.9-2.7); Potassium 3.6 mmol/L (3.5-5.0)
[2019-10-28 09:46] LABS: BUN/Creatinine Ratio 33.9 (8-20); EGFR African American 52.7 (>60); EGFR Non-African American 43.5 (>60)
[2019-10-28] MEDS: Aspirin EC 81 mg TAB.EC (enteric coated) PO SCH (10:00)
[2019-10-28] MEDS: Nystatin SUSPENSION 100,000 UNITS/ML UDC PO SCH ×4 (10:05→21:22)
[2019-10-28] MEDS: Morphine 2 MG/ML SYRINGE IV PRN (10:43)
[2019-10-28] MEDS ORDERED: Morphine ORAL.SOLN 10 mg 2 mg/ml UDC 5 ml (10 mg) PO PRN (12:04)
[2019-10-28 12:11] LABS: ABS Basophils 0.1 10^3/ul (0-0.2); ABS Eosinophils 0.6 10^3/ul (0-0.6); ABS Lymphocytes 2.2 10^3/ul (1.0-4.8); ABS Monocytes 1.4 10^3/ul (0-0.8); ABS Neutrophils 8.3 10^3/ul (1.5-7.7); Eosinophil % 4.7 %; Lymphocyte % 17.2 %; Nucleated Red Blood Cells % 0.1
[2019-10-28] MEDS: Morphine ORAL.SOLN 10 mg 2 mg/ml UDC 5 ml (10 mg) PO PRN (12:17)
[2019-10-29] MEDS: Nystatin SUSPENSION 100,000 UNITS/ML UDC PO SCH ×4 (09:22→20:59)
[2019-10-29] MEDS: Aspirin EC 81 mg TAB.EC (enteric coated) PO SCH (09:27)
[2019-10-29] MEDS: Morphine ORAL.SOLN 10 mg 2 mg/ml UDC 5 ml (10 mg) PO PRN ×2 (09:39→20:32)
[2019-10-29 10:25] LABS: ABS Eosinophils 0.3 10^3/ul (0-0.6); ABS Lymphocytes 1.7 10^3/ul (1.0-4.8); ABS Monocytes 1.1 10^3/ul (0-0.8); ABS Neutrophils 9.8 10^3/ul (1.5-7.7); Eosinophil % 2.1 %; Hematocrit 32 % (35-47); Hemoglobin 11.2 g/dL (12.0-16.0); Lymphocyte % 13.4 %; Mean Corpuscular HGB Conc 35 g/dL (31-36); Mean Corpuscular Hemoglobin 31 pg (27-31); Mean Corpuscular Volume 90 fL (80-97); Mean Platelet Volume 9.6 fL (7.4-10.4); Nucleated Red Blood Cells % 0.1; Platelet Count 248 10^3/uL (150-450); Red Blood Count 3.58 10^6 /uL (3.70-4.87); Red Cell Distribution Width 14 % (10-15); White Blood Count 12.9 10^3/uL (3.5-10.8)
[2019-10-29 10:55] LABS: Calcium 8.8 mg/dL (8.6-10.3); Potassium 3.6 mmol/L (3.5-5.0)
[2019-10-29 11:01] LABS: BUN/Creatinine Ratio 33.6 (8-20); EGFR African American 57.1 (>60); EGFR Non-African American 47.2 (>60)
[2019-10-29] MEDS: NS 0.9% 500 ml BAG 500 ML IV SCH ×2 (13:14→23:00)
[2019-10-29] MEDS ORDERED: Diltiazem IV push/loading dose 5 MG/ML 5 ML vial (25 mg) IV SLOW PU ONE ×2 (15:54→18:26)
[2019-10-29] MEDS ORDERED: Potassium Chlor 20 meq TAB.ER PO ONE (16:48)
[2019-10-30 07:59] LABS: Hematocrit 30 % (35-47); Hemoglobin 10.4 g/dL (12.0-16.0); Mean Corpuscular HGB Conc 35 g/dL (31-36); Mean Corpuscular Hemoglobin 31 pg (27-31); Mean Corpuscular Volume 89 fL (80-97); Mean Platelet Volume 9.3 fL (7.4-10.4); Platelet Count 221 10^3/uL (150-450); Red Blood Count 3.32 10^6 /uL (3.70-4.87); Red Cell Distribution Width 14 % (10-15); White Blood Count 13.6 10^3/uL (3.5-10.8)
[2019-10-30] MEDS: Aspirin EC 81 mg TAB.EC (enteric coated) PO SCH (08:13)
[2019-10-30] MEDS: Nystatin SUSPENSION 100,000 UNITS/ML UDC PO SCH ×4 (08:13→20:36)
[2019-10-30 08:16] LABS: Blood Urea Nitrogen 41 mg/dL (6-24); CO2 Carbon Dioxide 36 mmol/L (22-32); Calcium 8.3 mg/dL (8.6-10.3); Chloride 105 mmol/L (101-111); EGFR African American 54.8 (>60); EGFR Non-African American 45.3 (>60); Glucose 158 mg/dL (70-100); Sodium 140 mmol/L (135-145)
[2019-10-30 08:20] LABS: Potassium 5.1 mmol/L (3.5-5.0)
[2019-10-30 08:28] LABS: ABS Lymphocytes 1.2 10^3/ul (1.0-4.8); ABS Monocytes 0.9 10^3/ul (0-0.8); ABS Neutrophils 11.4 10^3/ul (1.5-7.7); Eosinophil % 0.1 %; Lymphocyte % 8.8 %; Nucleated Red Blood Cells % 0.1
[2019-10-30] MEDS: NS 0.9% 500 ml BAG 500 ML IV SCH (13:24)
[2019-10-30] MEDS: cefTRIAXone 1 gm/50 mL NS BAG 1 GM/50 ML BAG IVPB SCH (14:20)
[2019-10-30] MEDS: Morphine ORAL.SOLN 10 mg 2 mg/ml UDC 5 ml (10 mg) PO PRN (23:04)
[2019-10-31] MEDS: NS 0.9% 500 ml BAG 500 ML IV SCH (03:38)
[2019-10-31 08:14] LABS: Hematocrit 30 % (35-47); Hemoglobin 10.1 g/dL (12.0-16.0); Mean Corpuscular HGB Conc 34 g/dL (31-36); Mean Corpuscular Hemoglobin 31 pg (27-31); Mean Corpuscular Volume 89 fL (80-97); Mean Platelet Volume 9.7 fL (7.4-10.4); Platelet Count 233 10^3/uL (150-450); Red Blood Count 3.29 10^6 /uL (3.70-4.87); Red Cell Distribution Width 14 % (10-15); White Blood Count 17.5 10^3/uL (3.5-10.8)
[2019-10-31 08:29] LABS: BUN/Creatinine Ratio 37.6 (8-20); Calcium 8.2 mg/dL (8.6-10.3); EGFR African American 57.7 (>60); EGFR Non-African American 47.7 (>60); Potassium 4.4 mmol/L (3.5-5.0)
[2019-10-31] MEDS: Nystatin SUSPENSION 100,000 UNITS/ML UDC PO SCH ×4 (08:39→20:39)
[2019-10-31] MEDS: Aspirin EC 81 mg TAB.EC (enteric coated) PO SCH (08:40)
[2019-10-31 08:50] LABS: ABS Basophils 0.1 10^3/ul (0-0.2); ABS Eosinophils 0.3 10^3/ul (0-0.6); ABS Lymphocytes 1.9 10^3/ul (1.0-4.8); ABS Monocytes 1.4 10^3/ul (0-0.8); ABS Neutrophils 13.7 10^3/ul (1.5-7.7); Lymphocyte % 11.1 %; Nucleated Red Blood Cells % 0.1
[2019-10-31] MEDS: cefTRIAXone 1 gm/50 mL NS BAG 1 GM/50 ML BAG IVPB SCH (13:05)
[2019-11-01] MEDS: Aspirin EC 81 mg TAB.EC (enteric coated) PO SCH (07:56)
[2019-11-01] MEDS: Nystatin SUSPENSION 100,000 UNITS/ML UDC PO SCH ×4 (08:03→21:57)
[2019-11-01 09:44] LABS: BUN/Creatinine Ratio 39.2 (8-20); Calcium 8.8 mg/dL (8.6-10.3); EGFR African American 62.3 (>60); EGFR Non-African American 51.5 (>60); Potassium 4.8 mmol/L (3.5-5.0)
[2019-11-01] MEDS ORDERED: SPIRIVA Respimat (tiotropium) 2.5 mcg/inh Inhaler INH SCH (10:00)
[2019-11-01] MEDS: Albuterol/Ipratropium NEB.SOL (2.5/0.5 MG) 3 ML NEB.SOLN INH SCH ×4 (12:40→23:40)
[2019-11-01] MEDS ORDERED: Oxymetazoline 0.05% NASAL SPR 15 ML BTL BOTH NARES ONE (12:43)
[2019-11-01] MEDS: cefTRIAXone 1 gm/50 mL NS BAG 1 GM/50 ML BAG IVPB SCH (13:59)
[2019-11-02] MEDS ORDERED: Metoprolol Tartrate 5 mg VIAL 5 ml VIAL (1 mg/ml) IV ONE ×2 (03:05→09:33)
[2019-11-02] MEDS: Albuterol/Ipratropium NEB.SOL (2.5/0.5 MG) 3 ML NEB.SOLN INH SCH ×5 (03:18→21:14)
[2019-11-02] MEDS: Nystatin SUSPENSION 100,000 UNITS/ML UDC PO SCH ×4 (09:03→20:09)
[2019-11-02] MEDS: Aspirin EC 81 mg TAB.EC (enteric coated) PO SCH (09:05)
[2019-11-02 10:48] LABS: Troponin I 0.11 ng/mL (<0.03)
[2019-11-02 14:19] LABS: Troponin I 0.08 ng/mL (<0.03)
[2019-11-03] MEDS: Albuterol/Ipratropium NEB.SOL (2.5/0.5 MG) 3 ML NEB.SOLN INH SCH (00:32)
[2019-11-03] MEDS: Aspirin EC 81 mg TAB.EC (enteric coated) PO SCH (08:35)
[2019-11-03] MEDS: Nystatin SUSPENSION 100,000 UNITS/ML UDC PO SCH ×4 (08:36→20:30)
[2019-11-03 09:13] LABS: Albumin 3.1 g/dL (3.2-5.2); Albumin/Globulin Ratio 1.3 (1-3); BUN/Creatinine Ratio 28.4 (8-20); Calcium 8.8 mg/dL (8.6-10.3); EGFR African American 67.6 (>60); EGFR Non-African American 55.9 (>60); Globulin 2.3 g/dL (2-4); Potassium 4.3 mmol/L (3.5-5.0); Total Bilirubin 0.4 mg/dL (0.2-1.0); Total Protein 5.4 g/dL (6.4-8.9)
[2019-11-03] MEDS ORDERED: Metoprolol Tartrate 5 mg VIAL 5 ml VIAL (1 mg/ml) IV ONE (09:52)
[2019-11-03] MEDS: HYDROcodone/ACETAMIN 5/325 mg TAB PO PRN (10:05)
[2019-11-03 16:09] LABS: ABS Basophils 0.1 10^3/ul (0-0.2); ABS Eosinophils 0.2 10^3/ul (0-0.6); ABS Lymphocytes 0.6 10^3/ul (1.0-4.8); ABS Monocytes 0.3 10^3/ul (0-0.8); ABS Neutrophils 12.3 10^3/ul (1.5-7.7); Eosinophil % 1.3 %; Hematocrit 28 % (35-47); Hemoglobin 9.4 g/dL (12.0-16.0); Lymphocyte % 4.7 %; Mean Corpuscular HGB Conc 33 g/dL (31-36); Mean Corpuscular Hemoglobin 30 pg (27-31); Mean Corpuscular Volume 91 fL (80-97); Mean Platelet Volume 9.3 fL (7.4-10.4); Nucleated Red Blood Cells % 0.1; Platelet Count 241 10^3/uL (150-450); Red Blood Count 3.11 10^6 /uL (3.70-4.87); Red Cell Distribution Width 14 % (10-15); White Blood Count 13.5 10^3/uL (3.5-10.8)
[2019-11-03] MEDS: Albuterol/Ipratropium NEB.SOL (2.5/0.5 MG) 3 ML NEB.SOLN INH PRN (17:34)
[2019-11-04] MEDS: HYDROcodone/ACETAMIN 5/325 mg TAB PO PRN ×3 (04:37→20:59)
[2019-11-04] MEDS: Aspirin EC 81 mg TAB.EC (enteric coated) PO SCH (07:50)
[2019-11-04] MEDS: Nystatin SUSPENSION 100,000 UNITS/ML UDC PO SCH ×4 (07:51→21:00)
[2019-11-04 09:09] LABS: Hematocrit 28 % (35-47); Hemoglobin 9.4 g/dL (12.0-16.0); Mean Corpuscular HGB Conc 33 g/dL (31-36); Mean Corpuscular Hemoglobin 31 pg (27-31); Mean Corpuscular Volume 91 fL (80-97); Mean Platelet Volume 9.8 fL (7.4-10.4); Platelet Count 230 10^3/uL (150-450); Red Blood Count 3.09 10^6 /uL (3.70-4.87); Red Cell Distribution Width 14 % (10-15); White Blood Count 13.3 10^3/uL (3.5-10.8)
[2019-11-04 09:11] LABS: ABS Basophils 0.1 10^3/ul (0-0.2); ABS Eosinophils 0.5 10^3/ul (0-0.6); ABS Lymphocytes 1.7 10^3/ul (1.0-4.8); ABS Monocytes 1.3 10^3/ul (0-0.8); ABS Neutrophils 9.7 10^3/ul (1.5-7.7); Eosinophil % 3.7 %; Lymphocyte % 12.6 %; Nucleated Red Blood Cells % 0.1
[2019-11-04 09:29] LABS: Anion Gap 2 mmol/L (2-11); BUN/Creatinine Ratio 26.7 (8-20); Blood Urea Nitrogen 27 mg/dL (6-24); CO2 Carbon Dioxide 35 mmol/L (22-32); Calcium 8.6 mg/dL (8.6-10.3); Chloride 104 mmol/L (101-111); EGFR Non-African American 52.1 (>60); Glucose 166 mg/dL (70-100); Potassium 4.3 mmol/L (3.5-5.0); Sodium 141 mmol/L (135-145)
[2019-11-04 09:38] LABS: Troponin I 0.06 ng/mL (<0.03)
[2019-11-04] MEDS: Albuterol/Ipratropium NEB.SOL (2.5/0.5 MG) 3 ML NEB.SOLN INH PRN (21:24)
[2019-11-05] MEDS: HYDROcodone/ACETAMIN 5/325 mg TAB PO PRN ×2 (05:50→18:19)
[2019-11-05 06:22] LABS: ABS Basophils 0.1 10^3/ul (0-0.2); ABS Eosinophils 0.5 10^3/ul (0-0.6); ABS Monocytes 1.2 10^3/ul (0-0.8); ABS Neutrophils 10.5 10^3/ul (1.5-7.7); Eosinophil % 3.5 %; Hematocrit 29 % (35-47); Hemoglobin 9.7 g/dL (12.0-16.0); Lymphocyte % 14.2 %; Mean Corpuscular HGB Conc 34 g/dL (31-36); Mean Corpuscular Hemoglobin 31 pg (27-31); Mean Corpuscular Volume 90 fL (80-97); Mean Platelet Volume 9.8 fL (7.4-10.4); Nucleated Red Blood Cells % 0.1; Platelet Count 225 10^3/uL (150-450); Red Blood Count 3.18 10^6 /uL (3.70-4.87); Red Cell Distribution Width 15 % (10-15); White Blood Count 14.3 10^3/uL (3.5-10.8)
[2019-11-05 06:32] LABS: Albumin 3.2 g/dL (3.2-5.2); Albumin/Globulin Ratio 1.3 (1-3); BUN/Creatinine Ratio 25.2 (8-20); Calcium 8.9 mg/dL (8.6-10.3); EGFR African American 56.5 (>60); EGFR Non-African American 46.7 (>60); Globulin 2.5 g/dL (2-4); Magnesium 2.1 mg/dL (1.9-2.7); Potassium 4.3 mmol/L (3.5-5.0); Total Bilirubin 0.4 mg/dL (0.2-1.0); Total Protein 5.7 g/dL (6.4-8.9)
[2019-11-05] MEDS: Nystatin SUSPENSION 100,000 UNITS/ML UDC PO SCH ×4 (07:33→21:19)
[2019-11-05] MEDS: Aspirin EC 81 mg TAB.EC (enteric coated) PO SCH (07:34)
[2019-11-05] MEDS: Albuterol/Ipratropium NEB.SOL (2.5/0.5 MG) 3 ML NEB.SOLN INH PRN ×2 (13:47→20:23)
[2019-11-05] MEDS: Mometasone/Formoter 200/5 MDI INH SCH (20:23)
[2019-11-06] MEDS: HYDROcodone/ACETAMIN 5/325 mg TAB PO PRN ×3 (05:11→20:00)
[2019-11-06 05:49] LABS: ABS Basophils 0.1 10^3/ul (0-0.2); ABS Eosinophils 0.4 10^3/ul (0-0.6); ABS Lymphocytes 1.9 10^3/ul (1.0-4.8); ABS Monocytes 1.1 10^3/ul (0-0.8); ABS Neutrophils 10.6 10^3/ul (1.5-7.7); Eosinophil % 3.1 %; Hematocrit 28 % (35-47); Hemoglobin 9.6 g/dL (12.0-16.0); Lymphocyte % 13.2 %; Mean Corpuscular HGB Conc 34 g/dL (31-36); Mean Corpuscular Hemoglobin 31 pg (27-31); Mean Corpuscular Volume 90 fL (80-97); Mean Platelet Volume 10.1 fL (7.4-10.4); Nucleated Red Blood Cells % 0.1; Platelet Count 211 10^3/uL (150-450); Red Cell Distribution Width 15 % (10-15); White Blood Count 14.2 10^3/uL (3.5-10.8)
[2019-11-06 06:07] LABS: BUN/Creatinine Ratio 25.7 (8-20); Calcium 8.7 mg/dL (8.6-10.3); EGFR Non-African American 52.1 (>60); Potassium 4.5 mmol/L (3.5-5.0)
[2019-11-06] MEDS: Aspirin EC 81 mg TAB.EC (enteric coated) PO SCH (08:35)
[2019-11-06] MEDS: Nystatin SUSPENSION 100,000 UNITS/ML UDC PO SCH ×4 (08:35→21:47)
[2019-11-06] MEDS: Mometasone/Formoter 200/5 MDI INH SCH ×2 (11:24→21:08)
[2019-11-06] MEDS: Albuterol/Ipratropium NEB.SOL (2.5/0.5 MG) 3 ML NEB.SOLN INH PRN ×2 (15:50→21:08)
[2019-11-07 05:40] LABS: ABS Basophils 0.1 10^3/ul (0-0.2); ABS Eosinophils 0.3 10^3/ul (0-0.6); ABS Lymphocytes 2.2 10^3/ul (1.0-4.8); ABS Monocytes 1.2 10^3/ul (0-0.8); ABS Neutrophils 10.5 10^3/ul (1.5-7.7); Hematocrit 27 % (35-47); Hemoglobin 9.6 g/dL (12.0-16.0); Lymphocyte % 15.6 %; Mean Corpuscular HGB Conc 35 g/dL (31-36); Mean Corpuscular Hemoglobin 31 pg (27-31); Mean Corpuscular Volume 89 fL (80-97); Mean Platelet Volume 9.5 fL (7.4-10.4); Nucleated Red Blood Cells % 0.1; Platelet Count 222 10^3/uL (150-450); Red Blood Count 3.08 10^6 /uL (3.70-4.87); Red Cell Distribution Width 14 % (10-15); White Blood Count 14.3 10^3/uL (3.5-10.8)
[2019-11-07 05:58] LABS: EGFR African American 73.9 (>60); EGFR Non-African American 61.1 (>60); Potassium 4.8 mmol/L (3.5-5.0)
[2019-11-07] MEDS: HYDROcodone/ACETAMIN 5/325 mg TAB PO PRN ×3 (06:08→21:08)
[2019-11-07] MEDS: Mometasone/Formoter 200/5 MDI INH SCH ×2 (09:33→20:44)
[2019-11-07] MEDS ORDERED: Furosemide 20 mg/2 ml IV VIAL IV SLOW PU ONE (09:34)
[2019-11-07] MEDS: Enoxaparin 40 MG/0.4 ML SYR SUBCUT SCH (10:03)
[2019-11-07] MEDS: Nystatin SUSPENSION 100,000 UNITS/ML UDC PO SCH (10:18)
[2019-11-08] MEDS: Mometasone/Formoter 200/5 MDI INH SCH (09:07)
[2019-11-08] MEDS: Enoxaparin 40 MG/0.4 ML SYR SUBCUT SCH (10:28)
[2019-11-08] MEDS: HYDROcodone/ACETAMIN 5/325 mg TAB PO PRN ×2 (10:31→15:25)
[2019-11-08 10:37] LABS: ABS Basophils 0.1 10^3/ul (0-0.2); ABS Eosinophils 0.3 10^3/ul (0-0.6); ABS Lymphocytes 1.9 10^3/ul (1.0-4.8); ABS Monocytes 1.1 10^3/ul (0-0.8); Eosinophil % 2.2 %; Hematocrit 28 % (35-47); Hemoglobin 9.5 g/dL (12.0-16.0); Lymphocyte % 14.5 %; Mean Corpuscular HGB Conc 34 g/dL (31-36); Mean Corpuscular Hemoglobin 31 pg (27-31); Mean Corpuscular Volume 91 fL (80-97); Mean Platelet Volume 10.6 fL (7.4-10.4); Platelet Count 212 10^3/uL (150-450); Red Blood Count 3.09 10^6 /uL (3.70-4.87); Red Cell Distribution Width 15 % (10-15); White Blood Count 13.3 10^3/uL (3.5-10.8)
[2019-11-08 10:50] LABS: BUN/Creatinine Ratio 19.6 (8-20); Calcium 8.8 mg/dL (8.6-10.3); EGFR Non-African American 54.6 (>60); Potassium 4.2 mmol/L (3.5-5.0)
[2019-11-08 15:42] VITALS: BP 140/58
== END 2019-11-08 15:45 | DRG 190 ==
LOC: ED 11:49 → ICU 13:59 → MEDTELE 10-26 17:09
PROVIDERS: ADMIT Internal Medicine; ATTEND Internal Medicine